=== PATIENT | male | born 1965 | race Caucasian/White ===

== ENCOUNTER 2017-01-22 22:25 | Inpatient (IN) | payer OTHER, MEDICARE ==
[~2017-01-22] VITALS: Ht 180.3 cm; Wt 97.4 kg
[~2017-01-22 22:25] MED LIST: AUGM875T PO; CYCL-36 PO; GABA600T PO; LEVEMIR SC; LISI5 PO; LORTA5 PO; NEOS15T TOPICAL; NOVOLOGP2 SC; PLAV75TA PO; PROS5TAB2 PO; PROT40TA PO; RIFA150 PO; TAMS0.4C67 PO
[2017-01-22 22:30] VITALS: BP 128/65; PULSE 98; RESP 16; TEMP 98.5; O2SAT 99
[2017-01-22] MEDS ORDERED: LEVEMIR SQ (22:42)
[2017-01-22] MEDS ORDERED: FINA5TAB2 PO (22:42)
[2017-01-22] MEDS ORDERED: CLOP75TA PO (22:42)
[2017-01-22] MEDS ORDERED: HYDR-3583 PO (22:42)
[2017-01-22] MEDS ORDERED: GABA300C5 PO (22:42)
[2017-01-22] MEDS ORDERED: PANT40TA3 PO (22:42)
[2017-01-22] MEDS ORDERED: LISI2.5T3 PO (22:42)
--- NOTE | 2017-01-22 22:53 | PD ---
HPI Chief Complaint: Skin Problem Time Seen by Provider: 22:48 Travel History International Travel<30 days: No Contact w/Intl Traveler<30days: No Traveled to known affect area: No History of Present Illness HPI 51-year-old male that presents to the ED for evaluation of lower leg edema with swelling and erythema. Per patient she's had this for the past couple of days. Per patient the symptoms started on Monday. Per patient she follows with his primary care doctor for evaluation of a diabetic ulcer to his left fifth digit. Per patient she's had wound care and x-rays has been compliant with his medications for his diabetes as well as for his wound care with good results. Per patient he doesn't really have any issues with her has not really pain on the feet as he has peripheral neuropathy secondary to diabetes. Per patient he go concerning on Monday because he started having some swelling of his lower legs. Per patient the swelling has becoming more severe and is going almost up to his groin. Per patient is becoming painful with up pain level of 6 out of 10. Per patient he feels like a burning sensation as well. He does have a history of blood clots and takes Plavix. He actually was admitted last year for a blood clot to his right arm. He denies any chest pain or shortness of breath. No cough or runny nose. No shortness of breath. Per patient he did complain of some lower back pain that started about 5 hours ago. Per patient the pain continued to worsen and that is why he called the ambulance so the burning here. Patient denies any other medical problems. Patient states compliance with medications given to him by his doctor. History of MRSA in the past. PFSH Past Medical History Arthritis: Yes Asthma: No Autoimmune Disease: No Blood Disorders: No Anxiety: No Depression: No Heart Rhythm Problems: No Cancer: Yes (Squamous cell/basal skin cancer) Cardiovascular Problems: No High Cholesterol: Yes Chemotherapy: No Chest Pain: No Congestive Heart Failure: No COPD: No Cerebrovascular Accident: No Diabetes: Yes Patient Takes Glucophage: Yes Diminished Hearing: No Endocrine: No Gastrointestinal Disorders: Yes GERD: Yes Glaucoma: No Genitourinary: Yes ([facility] Rx for Flomax) Hepatitis: No Hiatal Hernia: Yes Herniated Disk: Yes (CERVICAL AND LUMBAR) Hypertension: Yes Immune Disorder: No Kidney Stones: No Musculoskeletal: No Neurologic: Yes (neuropathy) Psychiatric: No Reproductive: No Respiratory: No Immunizations Current: Yes Migraines: No Radiation Therapy: No Renal Failure: No Seizures: No Sleep Apnea: No Thyroid Disease: No Ulcer: No Tetanus Vaccination: Unknown Influenza Vaccination: No Past Surgical History Abdominal Surgery: No AICD: Yes Arteriovenous Shunt: No Cardiac Surgery: No Ear Surgery: No Endocrine Surgery: No Eye Surgery: No Genitourinary Surgery: No Gynecologic Surgery: No Insulin Pump: No Joint Replacement: No Oral Surgery: Yes Pacemaker: No Thoracic Surgery: No Other Surgery: Yes (blood clot removal rue, lle wound debridement) Social History Alcohol Use: No Tobacco Use: Yes Substance Use: No Allergies-Medications (Allergen,Severity, Reaction): Coded Allergies: *MDRO Multi-Drug Resistant Organism (Verified Adverse Reaction, Unknown, ) MRSA (arm wound) - 01/2016 MRSA (blood, urine, wound) - 06/2013 Reported Meds & Prescriptions Reported Meds & Active Scripts Active Reported Levemir Inj (Insulin Detemir) 1,000 unit/ 10 ML Vial 60 Units SQ BID Do not mix with any other Insulin. Clopidogrel (Clopidogrel Bisulfate) 75 Mg Tab 75 Mg PO DAILY Lisinopril 2.5 Mg Tab 2.5 Mg PO DAILY Finasteride 5 Mg Tab 5 Mg PO DAILY Do not crush. Hydrocodone-Acetaminophen 10-325 mg Tab 1 Tab PO Q4H PRN Gabapentin 300 Mg Cap 300 Mg PO TID Pantoprazole (Pantoprazole Sodium) 40 Mg Tab 40 Mg PO DAILY Review of Systems General / Constitutional: No: Fever, Chills, Weight Gain, Weight Loss, Other Eyes: No: Diploplia, Blurred Vision, Photophobia, Drainage, Redness, Foreign Body Sensation, Pain, Tearing, Blind Spots, Visual changes, Blindness, Other HENT: No: Headaches, Vertigo, Lightheadedness, Sore Throat, Rhinitis, Rhinorrhea, Congestion, Nosebleed, Neck Stiffness, Neck Pain, Masses, Gingival Bleeding, Dental Difficulties, Ear Discharge, Earache, Other Cardiovascular: No: Chest Pain or Discomfort, Palpitations, Irregular Rhythm, Tachycardia, Diaphoresis, Syncope, Dyspnea on exertion, Varicosities, Edema, Cyanosis, Varicosities, Phlebitis, Claudication, Other Respiratory: No: Cough, Shortness of Breath, Wheezing, Sneezing, Orthopnea, Hemoptysis, Stridor, Night Sweats, Pleuritic Pain, Other Gastrointestinal: No: Nausea, Vomiting, Diarrhea, Abdominal Pain, Hematemesis, Hematochezia, Constipation, Changes in Bowel Habits, Indigestion, Dysphagia, Loss of Appetite, Other Genitourinary: No: Urgency, Frequency, Dysuria, Nocturia, Hematuria, Decreased Urinary Output, Oliguria, Hesitancy, Dribbling, Incontinence, Pelvic Pain, Flank Pain, Dyspareunia, Discharge, Dysmenorrhea, Menorrhagia, Metorrhagia, Vaginal Bleeding, Other Musculoskeletal: Positive: Edema, Pain, No: Myalgias, Arthralgias, Limited ROM , Weakness, Cramping, Atrophy, Other Skin: Positive Rash, No Itching, No Dryness, No Lumps, No Hives, No Change in Pigmentation, No Change in nails, No Alopecia, No Lesions, No Breast Lumps, No Breast Tenderness, No Breast Swelling, No Other Neurologic: No: Weakness, Dizziness, Syncope, Focal Abnormalities, Coordination Problem, Tremor, Ataxia, Headache, Change in Mentation, Slurred Speech, Paresthesia, Incontinence, Seizures, Sensory Disturbance, Other Psychiatric: No: Anxiety, Depression, Suicidal Ideations, Disorder of Thought, Mood Disorder, Substance Abuse, Homicidal Ideation, Other Endocrine: No: Heat Intolerance, Cold Intolerance, Polyuria, Polydipsia, Other Hematologic/Lymphatic: No: Easy Bruising, Lymph Node Enlargement, Other Physical Exam Narrative GENERAL: SKIN: Warm and dry. HEAD: Atraumatic. Normocephalic. EYES: Pupils equal and round. No scleral icterus. No injection or drainage. ENT: No nasal bleeding or discharge. Mucous membranes pink and moist. Tongue is midline. No uvula deviation. NECK: Trachea midline. No JVD. CARDIOVASCULAR: Regular rate and rhythm. No murmurs, S3, S4. RESPIRATORY: No accessory muscle use. Clear to auscultation. Breath sounds equal bilaterally. GASTROINTESTINAL: Abdomen soft, non-tender, nondistended. Hepatic and splenic margins not palpable. MUSCULOSKELETAL: Extremities without clubbing, cyanosis, or edema. No obvious deformities. Full range of motion of the lower extremities. Patient does have 1+ pitting edema of the lower shortness bilaterally. Erythema noted bilaterally. Very warm to touch. No obvious purulence or mass. Patient does have what appears to be a healing diabetic ulcer on the left fifth toe with no sign of purulence or mass. Toe itself appears to be intact. Able to move it fully. 2+ pulses bilaterally. NEUROLOGICAL: Awake and alert. No obvious cranial nerve deficits. Motor grossly within normal limits. Five out of 5 muscle strength in the arms and legs. Normal speech. PSYCHIATRIC: Appropriate mood and affect; insight and judgment normal. Data Data Last Documented VS Vital Signs Date Time Temp Pulse Resp B/P Pulse Ox O2 Delivery O2 Flow Rate FiO2 01/22/17 22:30 98.5 98 16 128/65 99 Orders Blood Culture (01/22/17 22:38) Iv Access Insert/Monitor (01/22/17 22:38) Wound Care (01/22/17 22:38) Foot, Complete ([id number]) (01/22/17 22:38) Us Leg Venous Doppler Bilat (01/22/17 22:38) Complete Blood Count With Diff (01/22/17 22:38) Magnesium (Mg) (01/22/17 22:38) Chest, Single Ap (01/22/17 22:38) Lactic Acid (01/22/17 22:38) Comprehensive Metabolic Panel (01/22/17 22:38) B-Type Natriuretic Peptide (01/22/17 22:46) Nicotine 14 Mg Patch.24 Hr (Habitrol 14 (01/22/17 23:00) MDM Medical Decision Making Medical Screen Exam Complete: Yes Emergency Medical Condition: Yes Medical Record Reviewed: Yes Differential Diagnosis Cellulitis versus pitting edema versus DVT versus heart failure versus sepsis versus normal exam Narrative Course 51-year-old male that presents to the ED for evaluation of lower leg edema and redness. Patient was properly examined and was found to have signs and symptoms concerning for cellulitis versus blood clots as patient has a history of IN the past. My recommendation at this time is for labs and imaging. Patient requested nicotine patch secondary to smoking abuse. This was given to the patient. Case will be signed out to my attending Dr. Saravia pending treatment and dispo. Wilian Leonardo Jan 22, 2017 22:53
[2017-01-22] MEDS ORDERED: NICOTINE 14 MG/24 HR PATCH TD ONE (23:00)
[2017-01-22 23:05] LABS: AUTOMATED NEUTROPHIL # 11.6 TH/MM3 (1.8-7.7); BASOPHIL # 0.2 TH/MM3 (0-0.2); BASOPHIL % 1.4 % (0.0-2.0); EOSINOPHIL # 0.3 TH/MM3 (0-0.4); EOSINOPHIL % 1.9 % (0.0-4.0); HEMATOCRIT 33.8 % (39.0-51.0); HEMO FLAGS DIFF FINAL; LYMPH % 22.3 % (9.0-44.0); LYMPHOCYTE # 3.8 TH/MM3 (1.0-4.8); MEAN CELL VOLUME 83.2 FL (80.0-100.0); MEAN CORPUSCULAR HEMOGLOBIN 27.5 PG (27.0-34.0); MONO % 6.5 % (0.0-8.0); NEUT % 67.9 % (16.0-70.0); PLATELET COUNT 523 TH/MM3 (150-450); RED BLOOD COUNT 4.07 MIL/MM3 (4.50-5.90); RED CELL DISTRIBUTION WIDTH 15.7 % (11.6-17.2); WHITE BLOOD COUNT 17.1 TH/MM3 (4.0-11.0)
[2017-01-22 23:31] LABS: BLOOD UREA NITROGEN 24 MG/DL (7-18); GLOMERULAR FILTRATION RATE 80 ML/MIN (>89)
[2017-01-22 23:32] LABS: ALKALINE PHOSPHATASE 215 U/L (45-117); ALT (GPT) 24 U/L (12-78); ANION GAP 10 MEQ/L (5-15); AST (GOT) 16 U/L (15-37); BICARBONATE 26.2 MEQ/L (21.0-32.0); CHLORIDE 97 MEQ/L (98-107); MAGNESIUM 2.6 MG/DL (1.5-2.5); POTASSIUM 4.5 MEQ/L (3.5-5.1); SODIUM (NA) 133 MEQ/L (136-145); TOTAL BILIRUBIN ADULT 0.1 MG/DL (0.2-1.0)
[2017-01-23] VITALS (9 sets, daily range): BP systolic 115–138; BP diastolic 54–86; PULSE 81–104; RESP 18–20; TEMP 97.4–99.7; O2SAT 92–98
--- NOTE | 2017-01-23 00:01 | RADRPT ---
EXAM DATE/TIME: 01/22/2017 23:01 [facility] COMPARISON: No previous studies available for comparison. INDICATIONS : Bilateral leg swelling. MEDICAL HISTORY : Hypercholesterolemia. Gastroesophageal reflux disease. Hypertension. Legally blind. Neuropathy. Hiata l hernia. Arthritis. Herniated disks. Diabetes. Skin cancer. MRSA SURGICAL HISTORY : Internal defibrillator. Wound debridement. Blood clot removal right arm. ENCOUNTER: Initial ACUITY: 4 - 6 days PAIN SCORE: 6/10 LOCATION: Bilateral legs. TECHNIQUE: Venous ultrasound of the left and right leg was performed from the inguinal ligament to the proximal calf. Real-time, color Doppler and spectral tracing, compression and augmentation techniques were us ed. FINDINGS: RIGHT LEG: There is normal compressibility of the deep venous system from the inguinal region to the proximal ca lf. No echogenic clot is seen in the lumen of the common femoral, femoral, popliteal, and posterior tibial veins. There is a normal response of the venous system to proximal and distal augmentation an d respiration. LEFT LEG: There is normal compressibility of the deep venous system from the inguinal region to the proximal ca lf. No echogenic clot is seen in the lumen of the common femoral, femoral, popliteal, and posterior tibial veins. There is a normal response of the venous system to proximal and distal augmentation an d respiration. CONCLUSION: No evidence of lower extremity DVT on the right or left. Asael Parks MD on January 22, 2017 at 23:58 Board Certified Radiologist. This report was verified electronically.
--- NOTE | 2017-01-23 00:52 | RADRPT ---
EXAM DATE/TIME: 01/23/2017 00:08 [facility] COMPARISON: CHEST SINGLE AP, January 28, 2016, 14:39. INDICATIONS : Shortness of breath. MEDICAL HISTORY : Hypertension. Diabetes mellitus type II. Hypercholesterolemia. SURGICAL HISTORY : Pacemaker. ENCOUNTER: Initial ACUITY: 1 day PAIN SCORE: 0/10 LOCATION: Bilateral chest FINDINGS: Single AP view of the chest. The lungs are clear. Cardiomediastinal silhouette within normal limits. No evidence of pleural effusion or pneumothorax. CONCLUSION: No acute cardiopulmonary disease identified. Asael Parks MD on January 23, 2017 at 0:50 Board Certified Radiologist. This report was verified electronically.
--- NOTE | 2017-01-23 01:12 | RADRPT ---
EXAM DATE/TIME: 01/23/2017 00:12 [facility] COMPARISON: FOOT LEFT COMPLETE ([id number]), May 12, 2014, 16:31. INDICATIONS : Left foot pain and swelling. MEDICAL HISTORY : Hypertension. Hypercholesterolemia. Diabetes mellitus type II. SURGICAL HISTORY : Pacemaker. ENCOUNTER: Initial ACUITY: 1 day PAIN SCORE: 6/10 LOCATION: Left foot FINDINGS: 3 views of the left foot. Old bone defect of the fifth toe proximal phalanx distal pole. Bone alignme nt within normal limits. No evidence of acute fracture. No evidence of new bone erosion. CONCLUSION: Chronic bone defect in the fifth toe proximal phalanx. No acute findings identified. Asael Parks MD on January 23, 2017 at 1:08 Board Certified Radiologist. This report was verified electronically.
--- NOTE | 2017-01-23 01:39 | PD ---
Data Data Last Documented VS Vital Signs Date Time Temp Pulse Resp B/P Pulse Ox O2 Delivery O2 Flow Rate FiO2 01/22/17 22:30 98.5 98 16 128/65 99 Orders Blood Culture (01/22/17 22:38) Iv Access Insert/Monitor (01/22/17 22:38) Wound Care (01/22/17 22:38) Foot, Complete ([id number]) (01/22/17 22:38) Us Leg Venous Doppler Bilat (01/22/17 22:38) Complete Blood Count With Diff (01/22/17 22:38) Magnesium (Mg) (01/22/17 22:38) Chest, Single Ap (01/22/17 22:38) Lactic Acid (01/22/17 22:38) Comprehensive Metabolic Panel (01/22/17 22:38) B-Type Natriuretic Peptide (01/22/17 22:46) Nicotine 14 Mg Patch.24 Hr (Habitrol 14 (01/22/17 23:00) Vancomycin Inj (Vancomycin Inj) (01/23/17 01:45) Admit Order (Ed Use Only) (01/23/17 ) Labs Laboratory Tests Test 01/22/17 01/22/17 01/22/17 22:35 22:45 22:50 Lactic Acid Level 1.0 mmol/L Sodium Level 133 MEQ/L Potassium Level 4.5 MEQ/L Chloride Level 97 MEQ/L Carbon Dioxide Level 26.2 MEQ/L Anion Gap 10 MEQ/L Blood Urea Nitrogen 24 MG/DL Creatinine 0.98 MG/DL Estimat Glomerular Filtration 80 ML/MIN Rate Random Glucose 86 MG/DL Calcium Level 8.7 MG/DL Magnesium Level 2.6 MG/DL Total Bilirubin 0.1 MG/DL Aspartate Amino Transf 16 U/L (AST/SGOT) Alanine Aminotransferase 24 U/L (ALT/SGPT) Alkaline Phosphatase 215 U/L Total Protein 6.9 GM/DL Albumin 2.5 GM/DL White Blood Count 17.1 TH/MM3 Red Blood Count 4.07 MIL/MM3 Hemoglobin 11.2 GM/DL Hematocrit 33.8 % Mean Corpuscular Volume 83.2 FL Mean Corpuscular Hemoglobin 27.5 PG Mean Corpuscular Hemoglobin 33.0 % Concent Red Cell Distribution Width 15.7 % Platelet Count 523 TH/MM3 Mean Platelet Volume 7.7 FL Neutrophils (%) (Auto) 67.9 % Lymphocytes (%) (Auto) 22.3 % Monocytes (%) (Auto) 6.5 % Eosinophils (%) (Auto) 1.9 % Basophils (%) (Auto) 1.4 % Neutrophils # (Auto) 11.6 TH/MM3 Lymphocytes # (Auto) 3.8 TH/MM3 Monocytes # (Auto) 1.1 TH/MM3 Eosinophils # (Auto) 0.3 TH/MM3 Basophils # (Auto) 0.2 TH/MM3 CBC Comment DIFF FINAL Differential Comment B-Type Natriuretic Peptide 78 PG/ML MDM Supervised Visit with JOSTIN: Yes Narrative Course The history, exam, and medical decision-making in the associated mid-level provider note were completed with my assistance. I reviewed and agree with the findings presented. I attest that I had a [id number] encounter with the patient on the same day, and personally performed and documented my assessment and findings in the medical record. *My assessment and Findings: 51-year-old man with diabetes piloerection be cellulitis, elevated white count. High risk for outpatient failure. History of MRSA. Chronic wound in the left fifth toe. Given IV antibiotics. We'll admit for treatment given high risk for outpatient failure. Eliezer Saravia MD Jan 23, 2017 01:39
[2017-01-23] MEDS ORDERED: VANCOMYCIN INJ 1,250 MG in SODIUM CHLOR 0.9% 250 ML INJ 250 ML IV ONE (01:45)
[2017-01-23] MEDS ORDERED: NALOXONE HCL 0.4 MG/ML AMP IV PRN (02:45)
[2017-01-23] MEDS ORDERED: SODIUM CHLORIDE 0.9% FLUSH 5 ML FLUSH FLUSH PRN (02:45)
[2017-01-23] MEDS ORDERED: MAGNESIUM HYDROXIDE SUSP 30 ML CUP PO PRN (02:45)
[2017-01-23] MEDS ORDERED: ONDANSETRON HCL 4 MG/2 ML VIAL IVP PRN (02:45)
[2017-01-23] MEDS ORDERED: Vancomycin Consult Pharmacy 1 EA OTHER SCH (02:45)
[2017-01-23] MEDS ORDERED: ACETAMINOPHEN 325 MG TAB PO PRN (02:45)
[2017-01-23] MEDS ORDERED: DEXTROSE 50% IN WATER 50 ML VIAL(D50) IV PUSH PRN (03:00)
[2017-01-23] MEDS ORDERED: GLUCAGON 1 MG/ML VIAL OTHER PRN (03:00)
[2017-01-23 03:57] LABS: BASOPHIL # 0.3 TH/MM3 (0-0.2); BASOPHIL % 2.2 % (0.0-2.0); EOSINOPHIL # 0.4 TH/MM3 (0-0.4); EOSINOPHIL % 2.5 % (0.0-4.0); HEMATOCRIT 30.9 % (39.0-51.0); HEMO FLAGS DIFF FINAL; LYMPH % 25.1 % (9.0-44.0); LYMPHOCYTE # 3.9 TH/MM3 (1.0-4.8); MEAN CELL VOLUME 83.7 FL (80.0-100.0); MEAN CORPUSCULAR HEMOGLOBIN 27.2 PG (27.0-34.0); MEAN CORPUSCULAR HGB CONC 32.6 % (32.0-36.0); MONO % 6.3 % (0.0-8.0); NEUT % 63.9 % (16.0-70.0); PLATELET COUNT 508 TH/MM3 (150-450); RED BLOOD COUNT 3.69 MIL/MM3 (4.50-5.90); RED CELL DISTRIBUTION WIDTH 15.6 % (11.6-17.2); WHITE BLOOD COUNT 15.6 TH/MM3 (4.0-11.0)
[2017-01-23] MEDS: ACETAMINOPHEN/HYDROcodone 325 MG/5 MG TAB PO PRN ×2 (04:10→10:36)
[2017-01-23 04:24] LABS: BICARBONATE 28.4 MEQ/L (21.0-32.0); POTASSIUM 4.3 MEQ/L (3.5-5.1)
[2017-01-23] MEDS ORDERED: INSULIN ASPART SUPPLEMENTAL SCALE SQ SCH (07:00)
--- NOTE | 2017-01-23 08:24 | HHI.HP ---
[facility] Rey Hernandez MD Admission Diagnosis BLE cellulitis Diagnoses: Chief Complaint: lower extremity edema/pain Travel History International Travel<30 Days: No Contact w/Intl Traveler <30 Da: No Traveled to Known Affected Are: No Sepsis Criteria SIRS Criteria (2 or more): Heart rate over 90, WBC > 70166, < 4000 or > 10% bands Sepsis Criteria (SIRS+source): Infect source susp/known Criteria Outcome: Meets sepsis criteria History of Present Illness 51-year-old male with history of DM, neuropathy, HTN, HLD, GERD, PVD, presents with a 2-3 day history of worsening bilateral leg swelling and pain. The patient states he has been dealing with a left 5th toe ulceration, seeing wound care and configuration release manager Dr. Ponce, s/p I&D, completed antibiotic 7 days treatment with Bactrim 1 week ago. However even after antibiotic treatment he started to notice worsening redness/warmth/edema extending proximally up the left leg. He also started to notice warmth and redness of the right lower extremity to a lesser extent. He denies any recent fevers but does have some occasional chills. The patient also does report shortness of breath which he believes is related to the pain, however also reports orthopnea and dyspnea on exertion. Denies any cough or chest pains. He denies any other medical complaints at this time. Review of Systems Constitutional: COMPLAINS OF: Chills, DENIES: Diaphoretic episodes, Fever, Dizziness Endocrine: DENIES: Polydipsia, Polyuria, Polyphagia Eyes: DENIES: Blurred vision, Double Vision Ears, nose, mouth, throat: DENIES: Throat pain, Odynophagia Respiratory: COMPLAINS OF: Shortness of breath, DENIES: Cough, Wheezing, Sputum production Cardiovascular: COMPLAINS OF: Dyspnea on Exertion, Lower Extremity Edema, Orthopnea, DENIES: Chest pain, Palpitations, Syncope Gastrointestinal: DENIES: Abdominal pain, Constipation, Diarrhea, Nausea, Vomiting Genitourinary: DENIES: Urinary frequency, Urgency, Dysuria Musculoskeletal: COMPLAINS OF: Back pain, DENIES: Joint pain, Neck pain Integumentary: DENIES: Nail changes, Pruritus Hematologic/lymphatic: DENIES: Bruising, Lymphadenopathy Immunologic/allergic: DENIES: Eczema, Urticaria Neurologic: DENIES: Abnormal gait, Headache, Localized weakness Psychiatric: DENIES: Anxiety, Depression Past Family Social History Past Medical History Legally blind Diabetes mellitus Neuropathy PVD Hypertension Hyperlipidemia GERD BPH Squamous cell skin cancer Hiatal Hernia Herniated discs Chronic back pain Sciatica Past Surgical History Squamous cell cancer resection from arms Right brachial endarterectomy and patch angioplasty with closure by Dr. Valdez Reported Medications Levemir Inj (Insulin Detemir) 1,000 unit/ 10 ML Vial 60 Units SQ BID Do not mix with any other Insulin. Clopidogrel (Clopidogrel Bisulfate) 75 Mg Tab 75 Mg PO DAILY Lisinopril 2.5 Mg Tab 2.5 Mg PO DAILY Finasteride 5 Mg Tab 5 Mg PO DAILY Do not crush. Hydrocodone-Acetaminophen 10-325 mg Tab 1 Tab PO Q4H PRN Gabapentin 300 Mg Cap 300 Mg PO TID Pantoprazole (Pantoprazole Sodium) 40 Mg Tab 40 Mg PO DAILY Allergies: Coded Allergies: *MDRO Multi-Drug Resistant Organism (Verified Adverse Reaction, Unknown, ) MRSA (arm wound) - 01/2016 MRSA (blood, urine, wound) - 06/2013 Active Ordered Medications Current Medications Medications (Trade) Dose Ordered Sig/Sumanth Route Start Time Stop Time Status Last Admin (NS Flush) 2 ml UNSCH PRN FLUSH 01/23/17 02:45 (NS Flush) 2 ml BID FLUSH 01/23/17 09:00 (Tylenol) 650 mg Q4H PRN PO 01/23/17 02:45 (Zofran Inj) 4 mg Q6H PRN IVP 01/23/17 02:45 (Milk Of Magnesia Liq) 30 ml Q12H PRN PO 01/23/17 02:45 (Lovenox Inj) 40 mg Q24H SQ 01/23/17 09:00 Naloxone HCl 0.4 mg 0.4 mg UNSCH PRN IV 01/23/17 02:45 (Vancomycin Consult Pharmacy) 0 ml @ 0 mls/hr UNSCH OTHER 01/23/17 02:45 (D50w (Vial) Inj) 25 ml UNSCH PRN IV PUSH 01/23/17 03:00 (Glucagon Inj) 1 mg UNSCH PRN OTHER 01/23/17 03:00 (Plavix) 75 mg DAILY PO 01/23/17 09:00 (Proscar) 5 mg DAILY PO 01/23/17 09:00 (Neurontin) 300 mg TID PO 01/23/17 09:00 (Levemir Inj) 60 units BID SQ 01/23/17 09:00 (Prinivil) 2.5 mg DAILY PO 01/23/17 09:00 (Protonix) 40 mg DAILY PO 01/23/17 09:00 ([place] 5-325 Mg) 1 tab Q6H PRN PO 01/23/17 03:00 01/23/17 04:10 ([place] 10-325 Mg) 1 tab Q6H PRN PO 01/23/17 03:00 Family History Patient unaware of biological family history, he is adopted Social History Smokes tobacco, 1.5 PPD Denies alcohol use Denies illicit drug use Physical Exam Vital Signs Vital Signs Date Time Temp Pulse Resp B/P Pulse Ox O2 Delivery O2 Flow Rate FiO2 01/23/17 04:11 98.8 97 18 123/57 98 01/23/17 01:46 96 18 136/67 96 Room Air 01/22/17 22:30 98.5 98 16 128/65 99 Physical Exam GENERAL: Well-nourished, well-developed middle aged male patient in [facility]. SKIN: Warm and dry. Excoriations and indurations at the right forearm. See lower extremities below. HEAD: Normocephalic. Atraumatic. EYES: Pupils equal and round. No scleral icterus. No injection or drainage. ENT: No nasal bleeding or discharge. Mucous membranes pink and moist. NECK: Supple. Trachea midline. CARDIOVASCULAR: Regular rate and rhythm. S1, S2 noted. No murmur appreciated. RESPIRATORY: No accessory muscle use. Clear to auscultation. Breath sounds equal bilaterally. GASTROINTESTINAL: Abdomen soft, non-tender, nondistended. Normoactive bowel sounds x4. MUSCULOSKELETAL: No obvious deformities. LLE with superficial ulceration at left 5th medial toe, however erythema, 1+ edema, warmth extending from the foot up toe the distal knee. RLE with mild erythema, 1+ edema. BLE mildly tender to palpation. NEUROLOGICAL: Awake and alert. No obvious cranial nerve deficits. Motor grossly within normal limits. 5/5 muscle strength in bilateral upper and lower extremities. Normal speech. PSYCHIATRIC: Appropriate mood and affect; insight and judgment normal. Laboratory Laboratory Tests Test 01/22/17 01/22/17 01/22/17 01/23/17 22:35 22:45 22:50 03:40 Lactic Acid Level 1.0 Sodium Level 133 139 Potassium Level 4.5 4.3 Chloride Level 97 103 Carbon Dioxide Level 26.2 28.4 Anion Gap 10 8 Blood Urea Nitrogen 24 20 Creatinine 0.98 0.88 Estimat Glomerular Filtration 80 91 Rate Random Glucose 86 83 Calcium Level 8.7 8.4 Magnesium Level 2.6 Total Bilirubin 0.1 Aspartate Amino Transf 16 (AST/SGOT) Alanine Aminotransferase 24 (ALT/SGPT) Alkaline Phosphatase 215 Total Protein 6.9 Albumin 2.5 White Blood Count 17.1 15.6 Red Blood Count 4.07 3.69 Hemoglobin 11.2 10.1 Hematocrit 33.8 30.9 Mean Corpuscular Volume 83.2 83.7 Mean Corpuscular Hemoglobin 27.5 27.2 Mean Corpuscular Hemoglobin 33.0 32.6 Concent Red Cell Distribution Width 15.7 15.6 Platelet Count 523 508 Mean Platelet Volume 7.7 7.4 Neutrophils (%) (Auto) 67.9 63.9 Lymphocytes (%) (Auto) 22.3 25.1 Monocytes (%) (Auto) 6.5 6.3 Eosinophils (%) (Auto) 1.9 2.5 Basophils (%) (Auto) 1.4 2.2 Neutrophils # (Auto) 11.6 10.0 Lymphocytes # (Auto) 3.8 3.9 Monocytes # (Auto) 1.1 1.0 Eosinophils # (Auto) 0.3 0.4 Basophils # (Auto) 0.2 0.3 CBC Comment DIFF FINAL DIFF FINAL Differential Comment B-Type Natriuretic Peptide 78 Date/Time Procedure Status Source Growth 01/22/17 22:50 Aerobic Blood Culture Received Blood Peripheral Pending 01/22/17 22:50 Anaerobic Blood Culture Received Blood Peripheral Pending Result Diagram: 01/23/17 0340 01/23/17 0340 Imaging 01/22/17: Chest x-ray - no acute cardiopulmonary disease identified 01/22/17: Left foot x-ray - chronic bone defect in the fifth toe proximal phalanx ; no acute findings identified 01/22/17: Doppler ultrasound - negative for DVT of bilateral lower extremities Assessment and Plan Assessment and Plan 51-year-old male with history of DM, neuropathy, HTN, HLD, GERD, PVD, presents with a 2-3 day history of worsening bilateral leg swelling and pain. Sepsis: leukocytosis WBC 17K, tachycardic HR 98. Source- secondary to lower extremity diabetic foot ulcer and cellulitis, see below. Lactic acid 1.0. Blood cultures collected. Continue IVF. Monitor CBC and vitals. LLE Diabetic Foot Ulcer and BLE Cellulitis, Failed Outpatient: with sepsis as above. L > R. Completed antibiotic treatment with Bactrim 1 week ago. Continue IV Vancomycin. Consult podiatry. Apply nystatin cream to foot ulcer. Diabetes Mellitus with Neuropathy: chronic, restart patient's Levemir 60u bid and Gabapentin. Monitor Accu-Cheks and cover with low dose SSI. Check HgbA1c. Dyspnea/LE Edema: unclear etiology. Doubt CHF with BNP 78, CXR images reviewed by me, unremarkable. Doppler U/S negative for DVT LE. With hx of DVT RUE , check VQ scan. HTN/HLD/PVD: chronic, continue patient's lisinopril, plavix. BPH: chronic, continue patient's Proscar GERD: chronic, continue patient's Protonix. All other medical conditions stable, continue home medications as appropriate. DVT Prophylaxis: Lovenox Written by Eboni Jones, acting as scribe for Dr. Healy on 01/23/17 at 08: 36. All or portions of this note were transcribed by scribderek []. I, Dr. Yoseph Healy personally performed the history, physical exam, and medical decision making; and confirmed the accuracy of the information in the transcribed note. Authenticated by Dr. Yoseph Healy on 01/23/17 at 16:29. Code Status Full Code Discussed Condition With Patient, RN Physician Certification 2 Midnight Certification Type: Admission for Inpatient Services Order for Inpatient Services The services are ordered in accordance with Medicare regulations or non- Medicare payer requirements, as applicable. In the case of services not specified as inpatient-only, they are appropriately provided as inpatient services in accordance with the 2-midnight benchmark. Estimated LOS (days): 3 days is the estimated time the patient will need to remain in the hospital, assuming treatment plan goals are met and no additional complications. Post-Hospital Plan: Not yet determined Eboni Jones PA-C Jan 23, 2017 08:24 Yoseph Healy MD Jan 23, 2017 16:29
[2017-01-23] MEDS ORDERED: ENALAPRILAT 1.25 MG/ML VIAL IV PRN (08:45)
[2017-01-23] MEDS ORDERED: cloNIDine HCL 0.1 MG TAB PO PRN (08:45)
[2017-01-23] MEDS: INSULIN DETEMIR 100 UNITS/ML VIAL SQ SCH ×2 (09:37→21:18)
[2017-01-23] MEDS: ENOXAPARIN SODIUM 40 MG/0.4 ML SYRINGE SQ SCH (09:37)
[2017-01-23] MEDS: FINASTERIDE 5 MG TAB PO SCH (09:39)
[2017-01-23] MEDS: LISINOPRIL 5 MG TAB PO SCH (09:39)
[2017-01-23] MEDS: CLOPIDOGREL 75 MG TAB PO SCH (09:39)
[2017-01-23] MEDS: GABAPENTIN 300 MG CAP PO SCH ×3 (09:39→17:41)
[2017-01-23] MEDS: PANTOPRAZOLE SOD 40 MG DELAYED RELEASE TAB PO SCH (09:39)
[2017-01-23] MEDS: SODIUM CHLORIDE 0.9% FLUSH 5 ML FLUSH FLUSH SCH ×2 (09:40→21:17)
[2017-01-23] MEDS: INSULIN ASPART SUPPLEMENTAL SCALE SQ SCH ×3 (11:00→21:20)
--- NOTE | 2017-01-23 11:36 | RADRPT ---
EXAM DATE/TIME: 01/23/2017 10:47 [place] COMPARISON: No previous studies available for comparison. INDICATIONS : Dyspnea with bilateral leg swelling. DOSE: 8.5 mCi Tc99m MAA IV 0.93 mCi Tc99m DTPA aerosol MEDICAL HISTORY : Hypertension. Diabetes mellitus type 2. Gastroesophageal reflux disease. Skin cancer. SURGICAL HISTORY : Skin cancer removal. ENCOUNTER: Initial ACUITY: 1 day PAIN SCALE: 0/10 LOCATION: Chest. TECHNIQUE: Following five minutes of tidal breathing of DTPA aerosol, planar images of the lungs were performed in eight projections. The patient was then injected with MAA, and eight-view perfusion scan was perf ormed. FINDINGS: There is a homogeneous pattern of aerosol delivery to the periphery of both lungs. Minimal central a irway tracer deposition is noted. No focal ventilatory defects are seen. The perfusion lung scan demonstrates a homogenous pattern of uptake in both lungs. No segmental or s ubsegmental defects are seen. CONCLUSION: Probability for pulmonary embolism.. Piyush Barrera MD FACR on January 23, 2017 at 11:34 Board Certified Radiologist. This report was verified electronically.
[2017-01-23 12:34] LABS: HEMOGLOBIN Ao 71.6 %; HEMOGLOBIN F 2.7 %; HEMOGLOBIN LA1C 1.8 %; HEMOGLOBIN P3 4.8 %
[2017-01-23] MEDS: NYSTATIN 100,000 UNIT/GM CREAM 15 GM TOPICAL SCH ×2 (12:52→21:18)
[2017-01-23] MEDS: VANCOMYCIN INJ 1,250 MG in SODIUM CHLOR 0.9% 250 ML INJ 250 ML IV SCH (14:43)
[2017-01-23] MEDS: ACETAMINOPHEN/HYDROcodone 325 MG/10 MG TAB PO PRN (17:41)
--- NOTE | 2017-01-23 20:58 | MB ---
cc: OSEI MARTEL DPM DATE OF CONSULTATION 01/23/17 REASON FOR CONSULTATION Left fifth digit ulcer, bilateral lower extremity cellulitis. HISTORY OF PRESENT ILLNESS This is a 51-year-old male with diabetes, peripheral neuropathy, significant past medical history, however, within the last [id number] days had worsening redness and pain of his bilateral legs. He has been seeing a medical insurance coding specialist, unclear if it is his mirror specialist through a wound care company that comes to his home regarding the left fifth digit ulcer. He states it has been improving. However, his legs was a definite worsening condition that he wished to be evaluated. Currently, I am seeing the patient bedside. He is a rather poor historian. He says he has had cellulitis in the past and he also has a history of needing antibiotics for his left fifth digit. Upon questioning regarding keeping the digit he at all costs he does not want any talk of fifth digit amputation. PAST MEDICAL HISTORY His past medical history is positive for legally blind, diabetes, peripheral neuropathy, PVD, hypertension, hyperlipidemia, gastroesophageal reflux disease, BPH, squamous cell skin cancer, hiatal hernia, herniated disks, chronic pain, sciatica. PAST SURGICAL HISTORY Squamous cell resection of his arms, right brachial endarterectomy with patch angioplasty with closure by Dr. Reddy. MEDICATIONS Reported outpatient medications reviewed and verified. Inpatient medications also reviewed. The patient is receiving vancomycin. Please see complete med list in chart. ALLERGIES None listed. However, history of multidrug resistant organism. PHYSICAL EXAMINATION VITAL SIGNS: Temperature is 99.3, pulse rate 100, respiratory rate 18, blood pressure 138/86. He is satting 95% on room air. GENERAL: This is an alert and oriented male seen bedside, exhibiting nonlabored respirations. EXTREMITIES: Bilateral lower extremities are examined. There is noted to be significant edema of the bilateral legs with redness, no open lesions on the bilateral extremities. The left fifth digit is examined. There is a partial thickness ulcer of the medial aspect of the fifth digit 6mm 6mm 2mm. No bone is exposed. It appears to have a red, beefy granular base. There is minimal drainage. There is superficial scab on the outer side of the fifth digit. The bone appears to have a mild instability nature as in possible history of a previous hammertoe surgery. The feet are warm. Pulses are palpable. Sensation decreased to light touch. LABORATORY FINDINGS White blood cell 71 down to 15.6, hemoglobin/hematocrit is 10 and 30, platelet count is 508. Chem-7 sodium 139, potassium 4.3, chloride 103, CO2 28.4, BUN is 20, hemoglobin A1c is 14.3. IMAGING FINDINGS Pertaining to the foot there appears to be an old deformity at the proximal phalanx likely correlating more with an old surgery than acute bony infection. Lower extremity ultrasound appears to be negative for any obvious DVT. ASSESSMENT/PLAN Left fifth digit ulceration wound culture taken bedside. My recommendation is to elevate the extremities. Continue gram-positive coverage. Upon questioning the patient if he wished for digit salvage he says absolutely. So wound care will be topical antibiotic ointment daily. I will follow the patient within the next 1-2 days. I do not see any need for surgical intervention at this time. TONI Joaquin/GINI /4:58 PM /7:45 PM GREGORY
[2017-01-24] VITALS (7 sets, daily range): BP systolic 121–175; BP diastolic 56–79; PULSE 68–95; RESP 20–22; TEMP 97–98.4; O2SAT 94–98
[2017-01-24] MEDS: VANCOMYCIN INJ 1,250 MG in SODIUM CHLOR 0.9% 250 ML INJ 250 ML IV SCH ×2 (03:28→16:45)
[2017-01-24] MEDS: ACETAMINOPHEN/HYDROcodone 325 MG/10 MG TAB PO PRN ×2 (03:36→09:03)
[2017-01-24] MEDS: INSULIN ASPART SUPPLEMENTAL SCALE SQ SCH ×4 (06:42→21:00)
[2017-01-24] MEDS: LISINOPRIL 5 MG TAB PO SCH (08:47)
[2017-01-24] MEDS: FINASTERIDE 5 MG TAB PO SCH (08:47)
[2017-01-24] MEDS: PANTOPRAZOLE SOD 40 MG DELAYED RELEASE TAB PO SCH (08:47)
[2017-01-24] MEDS: ENOXAPARIN SODIUM 40 MG/0.4 ML SYRINGE SQ SCH (08:48)
[2017-01-24] MEDS: SODIUM CHLORIDE 0.9% FLUSH 5 ML FLUSH FLUSH SCH ×2 (08:48→23:51)
[2017-01-24] MEDS: GABAPENTIN 300 MG CAP PO SCH ×3 (08:48→17:46)
[2017-01-24] MEDS: CLOPIDOGREL 75 MG TAB PO SCH (08:48)
[2017-01-24] MEDS: NYSTATIN 100,000 UNIT/GM CREAM 15 GM TOPICAL SCH ×2 (09:03→23:52)
[2017-01-24] MEDS: INSULIN DETEMIR 100 UNITS/ML VIAL SQ SCH ×2 (09:07→21:00)
--- NOTE | 2017-01-24 10:10 | HHI.PR ---
Subjective Remarks Follow-up for lower extremity cellulitis. The patient complains of chronic back pain, due for medication. BP is up, but the patient is uncomfortable from pain. He also reports he is on a higher dose of gabapentin at home. He was sent in by his home residential gas heat technician concerned about foot ulcer. Patient does have some shortness of breath, continues to smoke, has never been diagnosed with COPD. Objective Vitals Vital Signs Date Time Temp Pulse Resp B/P Pulse Ox O2 Delivery O2 Flow Rate FiO2 01/24/17 08:44 Room Air 01/24/17 08:44 97.0 89 20 98 01/24/17 04:06 97.4 79 20 128/61 95 01/24/17 00:13 98.1 87 20 121/56 95 01/23/17 20:02 96 01/23/17 19:31 97.4 93 20 115/54 95 01/23/17 18:42 18 01/23/17 16:50 99.3 104 18 138/86 95 01/23/17 15:45 99.7 101 18 120/58 92 01/23/17 12:36 18 01/23/17 12:35 97.6 93 20 117/55 94 01/23/17 10:31 81 I/O 01/23/17 01/23/17 01/23/17 01/24/17 01/24/17 01/24/17 07:00 15:00 23:00 07:00 15:00 23:00 Intake Total 480 ml 300 ml Output Total 400 ml Balance 480 ml -100 ml Intake Oral 480 ml IV Total 300 ml Output Urine Total 400 ml # Voids 1 # Bowel Movements 1 Result Diagram: 01/23/17 0340 01/24/17 0425 Imaging Last Impressions Lower Extremity Ultrasound 01/22/172237 Signed Impressions: Service Date/Time: Sunday, January 22, 2017 23:01 - CONCLUSION: No evidence of lower extremity DVT on the right or left. Asael Parks MD Foot X-Ray 01/22/172237 Signed Impressions: Service Date/Time: Monday, January 23, 2017 00:12 - CONCLUSION: Chronic bone defect in the fifth toe proximal phalanx. No acute findings identified. Asael Parks MD Chest X-Ray 01/22/172237 Signed Impressions: Service Date/Time: Monday, January 23, 2017 00:08 - CONCLUSION: No acute cardiopulmonary disease identified. Asael Parks MD Objective Remarks GENERAL: Well-developed well-nourished. In no acute distress. SKIN: Warm and dry. Bilateral lower extremity cellulitis L>R, improving. Ulcers lateral aspect left foot. HEENT: Normocephalic. Pupils equal and round. Mucous membranes pink and moist. CARDIOVASCULAR: Regular rate and rhythm. No murmur appreciated. RESPIRATORY: No accessory muscle use. Clear to auscultation. Breath sounds equal bilaterally. GASTROINTESTINAL: Abdomen soft, non-tender, nondistended. Bowel sounds x4. MUSCULOSKELETAL: Erythema around both ankles, worse on the left. 1+ lower extremity edema bilaterally.. No clubbing or cyanosis. NEUROLOGICAL: Awake and alert. No focal neurological deficits. Moves upper and lower extremities spontaneously. Normal speech. PSYCHIATRIC: Appropriate mood and affect; insight and judgment normal. A/P Assessment and Plan 51-year-old male with history of DM, neuropathy, HTN, HLD, GERD, PVD, presents with a 2-3 day history of worsening bilateral leg swelling and pain. Sepsis: leukocytosis WBC 17K, tachycardic HR 98. Source- secondary to lower extremity diabetic foot ulcer and cellulitis, see below. Lactic acid 1.0. Blood cultures with NGTD. Continue IVF. Monitor CBC and vitals. LLE Diabetic Foot Ulcer and BLE Cellulitis, Failed Outpatient: with sepsis as above. L > R. Completed antibiotic treatment with Bactrim 1 week ago. Continue IV Vancomycin. Consulted podiatry. Wound culture with NGTD Topical antimicrobial infection cream. Improving. Diabetes Mellitus with Neuropathy: chronic, blood glucoses labile. Restarted patient's Levemir 60u bid and Gabapentin. Hemoglobin A1c 14, probably an element of noncompliance. Better controlled here after home meds restarted. Monitor Accu-Cheks and cover with low dose SSI. Dyspnea/LE Edema: unclear etiology, possible underlying COPD. Doubt CHF with BNP 78, CXR unremarkable. Doppler U/S negative for DVT LE. Checked VQ scan, discussed with radiology, low probability for PE. O2 and nebs as needed. Check abdominal sonogram to evaluate liver, kidneys and for ascites HTN/HLD/PVD: chronic, continue patient's lisinopril, Plavix. BPH: chronic, continue patient's Proscar GERD: chronic, continue patient's Protonix. All other medical conditions stable, continue home medications as appropriate. DVT Prophylaxis: Lovenox Written by Car Sam, acting as scribe for Dr. Healy on 01/24/17 at 10:10. All or portions of this note were transcribed by scribe []. I, Dr. Yoseph Healy personally performed the history, physical exam, and medical decision making; and confirmed the accuracy of the information in the transcribed note. Authenticated by Dr. Yoseph Healy on 01/24/17 at 16:01. Discharge Planning Possible discharge planning when cleared by podiatry Car Sam Jan 24, 2017 10:10 Yoseph Healy MD Jan 24, 2017 16:01
[2017-01-24] MEDS: MUPIROCIN 2% OINT 22 GM TUBE TOPICAL SCH ×2 (12:38→23:52)
[2017-01-24] MEDS ORDERED: GABA600T PO (12:43)
--- NOTE | 2017-01-24 14:33 | PD.POD ---
Subjective Pain score: 3 Remarks left foot does not hurt, but leg, calf and belly hurt Past Med/Surg/Social History Social History Smoking Status: Current Every Day Smoker Objective Vital Signs Vital Signs Date Time Temp Pulse Resp B/P Pulse Ox O2 Delivery O2 Flow Rate FiO2 01/24/17 11:56 68 146/65 01/24/17 08:44 Room Air 01/24/17 08:44 97.0 89 20 98 01/24/17 04:06 97.4 79 20 128/61 95 01/24/17 00:13 98.1 87 20 121/56 95 01/23/17 20:02 96 01/23/17 19:31 97.4 93 20 115/54 95 01/23/17 18:42 18 01/23/17 16:50 99.3 104 18 138/86 95 01/23/17 15:45 99.7 101 18 120/58 92 Coded Allergies: *MDRO Multi-Drug Resistant Organism (Verified Adverse Reaction, Unknown, ) MRSA (arm wound) - 01/2016 MRSA (blood, urine, wound) - 06/2013 Medications and IVs Administered Medications Medications (Trade) Dose Ordered Sig/Sumanth Route PRN Reason Start Time Stop Time Status Last Admin Dose Admin IV Flush (NS Flush) 2 ml BID FLUSH 01/23/17 09:00 01/24/17 08:48 Enoxaparin Sodium (Lovenox Inj) 40 mg Q24H SQ 01/23/17 09:00 01/24/17 08:48 Clopidogrel Bisulfate (Plavix) 75 mg DAILY PO 01/23/17 09:00 01/24/17 08:48 Finasteride (Proscar) 5 mg DAILY PO 01/23/17 09:00 01/24/17 08:47 Insulin Detemir (Levemir Inj) 60 units BID SQ 01/23/17 09:00 01/24/17 09:07 Lisinopril (Prinivil) 2.5 mg DAILY PO 01/23/17 09:00 01/24/17 08:47 Pantoprazole Sodium (Protonix) 40 mg DAILY PO 01/23/17 09:00 01/24/17 08:47 Acetaminophen/ Hydrocodone Bitart ([place] 5-325 Mg) 1 tab Q6H PRN PO PAIN SCALE 1 TO 5 01/23/17 03:00 01/23/17 10:36 Acetaminophen/ Hydrocodone Bitart ([place] 10-325 Mg) 1 tab Q6H PRN PO PAIN SCALE 6 TO 10 01/23/17 03:00 01/24/17 09:03 Nystatin 1 applic 1 applic Q12HR TOPICAL 01/23/17 10:00 01/24/17 09:03 Vancomycin HCl/ Sodium Chloride (Vancomycin Inj/ NS 250 ml Inj) 262.5 ml @ 262.5 mls/ hr Q12H IV 01/23/17 15:00 01/24/17 03:28 Mupirocin (Bactroban 2% Oint) 1 applic Q12HR TOPICAL 01/24/17 10:15 01/24/17 12:38 Gabapentin (Neurontin) 600 mg TID PO 01/24/17 13:00 01/24/17 12:39 Other Results Laboratory Tests Test 01/22/17 01/23/17 22:50 03:40 White Blood Count 17.1 TH/MM3 15.6 TH/MM3 Red Blood Count 4.07 MIL/MM3 3.69 MIL/MM3 Hemoglobin 11.2 GM/DL 10.1 GM/DL Hematocrit 33.8 % 30.9 % Mean Corpuscular Volume 83.2 FL 83.7 FL Mean Corpuscular Hemoglobin 27.5 PG 27.2 PG Mean Corpuscular Hemoglobin 33.0 % 32.6 % Concent Red Cell Distribution Width 15.7 % 15.6 % Platelet Count 523 TH/MM3 508 TH/MM3 Mean Platelet Volume 7.7 FL 7.4 FL Neutrophils (%) (Auto) 67.9 % 63.9 % Lymphocytes (%) (Auto) 22.3 % 25.1 % Monocytes (%) (Auto) 6.5 % 6.3 % Eosinophils (%) (Auto) 1.9 % 2.5 % Basophils (%) (Auto) 1.4 % 2.2 % Neutrophils # (Auto) 11.6 TH/MM3 10.0 TH/MM3 Lymphocytes # (Auto) 3.8 TH/MM3 3.9 TH/MM3 Monocytes # (Auto) 1.1 TH/MM3 1.0 TH/MM3 Eosinophils # (Auto) 0.3 TH/MM3 0.4 TH/MM3 Basophils # (Auto) 0.2 TH/MM3 0.3 TH/MM3 CBC Comment DIFF FINAL DIFF FINAL Differential Comment Laboratory Tests Test 01/22/17 01/22/17 01/22/17 01/23/17 22:35 22:45 22:50 03:40 Lactic Acid Level 1.0 mmol/L Sodium Level 133 MEQ/L 139 MEQ/L Potassium Level 4.5 MEQ/L 4.3 MEQ/L Chloride Level 97 MEQ/L 103 MEQ/L Carbon Dioxide Level 26.2 MEQ/L 28.4 MEQ/L Anion Gap 10 MEQ/L 8 MEQ/L Blood Urea Nitrogen 24 MG/DL 20 MG/DL Creatinine 0.98 MG/DL 0.88 MG/DL Estimat Glomerular Filtration 80 ML/MIN 91 ML/MIN Rate Random Glucose 86 MG/DL 83 MG/DL Calcium Level 8.7 MG/DL 8.4 MG/DL Magnesium Level 2.6 MG/DL Total Bilirubin 0.1 MG/DL Aspartate Amino Transf 16 U/L (AST/SGOT) Alanine Aminotransferase 24 U/L (ALT/SGPT) Alkaline Phosphatase 215 U/L Total Protein 6.9 GM/DL Albumin 2.5 GM/DL B-Type Natriuretic Peptide 78 PG/ML Hemoglobin A1c 14.3 % Test 01/24/17 04:25 Creatinine 0.80 MG/DL Estimat Glomerular Filtration 102 ML/MIN Rate Microbiology Date/Time Procedure Status Source Growth 01/22/17 22:45 Aerobic Blood Culture - Preliminary Resulted Blood Peripheral NO GROWTH IN 2 DAYS 01/22/17 22:45 Anaerobic Blood Culture - Preliminary Resulted Blood Peripheral NO GROWTH IN 2 DAYS 01/22/17 22:50 Aerobic Blood Culture - Preliminary Resulted Blood Peripheral NO GROWTH IN 2 DAYS 01/22/17 22:50 Anaerobic Blood Culture - Preliminary Resulted Blood Peripheral NO GROWTH IN 2 DAYS 01/23/17 17:30 Gram Stain - Final Resulted Wound Toe 01/23/17 17:30 Wound Culture - Preliminary Resulted Wound Toe Physical Exam Remarks BL leg improved redness, however calf BL is hard with minimal pitting edema, Left foot 5th digit ulcer medial digit with minimal redness, no drainage, no bone exposed, BL feet are warm good alignment of BL feet and ankles goos musles strength. Assessment & Plan A/P BL LE Cellulilits with left 5th digit ulcer. Redness is improving, however calf and leg not so much. Wound care for now on the digit appears viable, continue ABX until redness resolved.. Reported to Medicine, belly complaint, will Fu intermittently. Maurice Epstein DPM Jan 24, 2017 14:33
[2017-01-24] MEDS ORDERED: PHARMACY ORDERED LAB XX ONE (14:45)
[2017-01-24] MEDS: FUROSEMIDE 20 MG/2 ML VIAL IV PUSH SCH (16:44)
--- NOTE | 2017-01-24 23:31 | RADRPT ---
EXAM DATE/TIME: 01/24/2017 22:27 [place] COMPARISON: No previous studies available for comparison. INDICATIONS : Liver disease and ascites. MEDICAL HISTORY : Hypercholesterolemia. Hypertension. Gastroesophageal reflux disease. Legally blind. Neuropathy. Hiata l hernia. Arthritis. Herniated disks. Diabetes. Skin cancer. MRSA. SURGICAL HISTORY : Internal defibrillator. Wound debridement. Blood clot removal right arm. ENCOUNTER: Initial ACUITY: 1 day PAIN SCORE: 7/10 LOCATION: Bilateral abdomen. MEASUREMENTS: LIVER: 21.9 cm length COMMON DUCT: 4 mm RIGHT KIDNEY: 13.5 x 6.3 x 6.8 cm LEFT KIDNEY: 14.3 x 5.6 x 6.3 cm SPLEEN: 11.6 cm length AORTA: 2.6cm maximal COMPLETE APPROPRIATE ITEMS PRE PROCEDURE: ID x 2: Complete NameDate of BirthEducation: Nurse/Technologist explained procedure to patient/famil y. Patient/family demonstrates understanding of procedure. FINDINGS: LIVER: Normal echotexture without focal lesion or ductal dilatation. COMMON DUCT: No intraluminal mass or stone visualized. GALLBLADDER: Contains no stones, demonstrates no wall thickening or pericholecystic fluid. PANCREAS: The visualized portions are within normal limits. RIGHT KIDNEY: No hydronephrosis, stone or mass. LEFT KIDNEY: No hydronephrosis, stone or mass. SPLEEN: No focal lesion. AORTA: Non aneurysmal. IVC: Within normal limits. CONCLUSION: Liver is prominent in size. Abdominal ultrasound otherwise within normal limits. Asael Parks MD on January 24, 2017 at 23:29 Board Certified Radiologist. This report was verified electronically.
[2017-01-25] VITALS (7 sets, daily range): BP systolic 149–178; BP diastolic 63–78; PULSE 91–95; RESP 12–20; TEMP 95.3–98.3; O2SAT 93–99
[2017-01-25] MEDS: ACETAMINOPHEN/HYDROcodone 325 MG/10 MG TAB PO PRN ×4 (00:41→21:47)
[2017-01-25] MEDS: VANCOMYCIN INJ 1,250 MG in SODIUM CHLOR 0.9% 250 ML INJ 250 ML IV SCH ×2 (04:09→15:06)
[2017-01-25 05:30] LABS: BICARBONATE 25.8 MEQ/L (21.0-32.0); MAGNESIUM 2.1 MG/DL (1.5-2.5); POTASSIUM 4.2 MEQ/L (3.5-5.1)
[2017-01-25] MEDS: RESP: ALBUTEROL 0.63 MG/3 ML NEB (PRN) NEB ×2 (05:57→22:41)
[2017-01-25] MEDS: INSULIN ASPART SUPPLEMENTAL SCALE SQ SCH ×4 (06:16→21:58)
[2017-01-25] MEDS: MUPIROCIN 2% OINT 22 GM TUBE TOPICAL SCH ×2 (09:00→21:00)
[2017-01-25] MEDS: NYSTATIN 100,000 UNIT/GM CREAM 15 GM TOPICAL SCH ×2 (09:00→21:47)
[2017-01-25] MEDS: GABAPENTIN 300 MG CAP PO SCH ×4 (09:02→21:47)
[2017-01-25] MEDS: LISINOPRIL 5 MG TAB PO SCH (09:02)
[2017-01-25] MEDS: SODIUM CHLORIDE 0.9% FLUSH 5 ML FLUSH FLUSH SCH ×2 (09:02→21:47)
[2017-01-25] MEDS: INSULIN DETEMIR 100 UNITS/ML VIAL SQ SCH ×2 (09:03→21:48)
[2017-01-25] MEDS: FINASTERIDE 5 MG TAB PO SCH (09:03)
[2017-01-25] MEDS: PANTOPRAZOLE SOD 40 MG DELAYED RELEASE TAB PO SCH (09:03)
[2017-01-25] MEDS: ENOXAPARIN SODIUM 40 MG/0.4 ML SYRINGE SQ SCH (09:03)
[2017-01-25] MEDS: CLOPIDOGREL 75 MG TAB PO SCH (09:03)
[2017-01-25] MEDS: FUROSEMIDE 20 MG/2 ML VIAL IV PUSH SCH ×2 (09:04→17:49)
--- NOTE | 2017-01-25 14:15 | HHI.PR ---
Subjective Remarks Follow-up for lower extremity cellulitis. Patient does have swelling of his lower legs. Feels like his abdomen is swollen as well. He complains of generalized lower extremity pain. Objective Vitals Vital Signs Date Time Temp Pulse Resp B/P Pulse Ox O2 Delivery O2 Flow Rate FiO2 01/25/17 12:00 95.3 91 12 178/78 98 01/25/17 08:00 97.7 95 16 149/63 99 01/25/17 06:03 96 21 01/25/17 04:00 97.1 94 20 160/65 93 01/25/17 03:42 18 01/25/17 00:00 98.3 93 20 164/76 93 01/24/17 20:30 Room Air 01/24/17 20:00 98.4 95 22 175/79 94 01/24/17 17:50 98.2 91 20 139/65 95 I/O 01/24/17 01/24/17 01/24/17 01/25/17 01/25/17 01/25/17 07:00 15:00 23:00 07:00 15:00 23:00 Intake Total 300 ml 500 ml 480 ml 325 ml Output Total 400 ml Balance -100 ml 500 ml 480 ml 325 ml Intake Oral 240 ml 480 ml 120 ml IV Total 300 ml 260 ml 205 ml Output Urine Total 400 ml # Voids 1 3 # Bowel Movements 1 0 1 Result Diagram: 01/23/17 0340 01/25/17 0414 Imaging Last Impressions Abdomen Ultrasound 01/24/17 0000 Signed Impressions: Service Date/Time: Tuesday, January 24, 2017 22:27 - CONCLUSION: Liver is prominent in size. Abdominal ultrasound otherwise within normal limits. Asael Parks MD Lung Scan- Nuclear Medicine 01/23/17 0000 Signed Impressions: Service Date/Time: Monday, January 23, 2017 10:47 - CONCLUSION: Probability for pulmonary embolism.. Piyush Barrera MD FACR Lower Extremity Ultrasound [id number]/22/172237 Signed Impressions: Service Date/Time: Sunday, January 22, 2017 23:01 - CONCLUSION: No evidence of lower extremity DVT on the right or left. Asael Parks MD Foot X-Ray [id number]/22/172237 Signed Impressions: Service Date/Time: Monday, January 23, 2017 00:12 - CONCLUSION: Chronic bone defect in the fifth toe proximal phalanx. No acute findings identified. Asael Parks MD Chest X-Ray 01/22/17 3763 Signed Impressions: Service Date/Time: Monday, January 23, 2017 00:08 - CONCLUSION: No acute cardiopulmonary disease identified. Asael Parks MD Objective Remarks GENERAL: Well-developed well-nourished. In no acute distress. SKIN: Warm and dry. Bilateral lower extremity cellulitis L>R, improving. Ulcer lateral aspect left foot. HEENT: Normocephalic. Pupils equal and round. Mucous membranes pink and moist. CARDIOVASCULAR: Regular rate and rhythm. No murmur appreciated. RESPIRATORY: No accessory muscle use. Clear to auscultation. Breath sounds equal bilaterally. GASTROINTESTINAL: Abdomen soft, non-tender, nondistended. Bowel sounds x4. MUSCULOSKELETAL: Improving erythema around both ankles, worse on the left. 1+ lower extremity edema bilaterally. No clubbing or cyanosis. NEUROLOGICAL: Awake and alert. No focal neurological deficits. Moves upper and lower extremities spontaneously. Normal speech. PSYCHIATRIC: Appropriate mood and affect; insight and judgment normal. A/P Assessment and Plan 51-year-old male with history of DM, neuropathy, HTN, HLD, GERD, PVD, presents with a 2-3 day history of worsening bilateral leg swelling and pain. Sepsis: leukocytosis WBC 17K, tachycardic HR 98. Source- secondary to lower extremity diabetic foot ulcer and cellulitis, see below. Lactic acid 1.0. Blood cultures with NGTD. Continue IVF. Follow-up CBC LLE Diabetic Foot Ulcer and BLE Cellulitis, Failed Outpatient: with sepsis as above. L > R. Completed antibiotic treatment with Bactrim 1 week ago. Continue IV Vancomycin. Consulted podiatry. Wound culture with group D enterococcus, await sensitivities. Topical antimicrobial infection cream. Improving. Diabetes Mellitus with Neuropathy: chronic, blood glucoses labile. Restarted patient's Levemir 60u bid and Gabapentin. Hemoglobin A1c 14, probably an element of noncompliance. Better controlled here after home meds restarted. Monitor Accu-Cheks and cover with low dose SSI. Consider metformin Dyspnea/LE Edema: unclear etiology, possible underlying COPD. Doubt CHF with BNP 78, CXR unremarkable. Doppler U/S negative for DVT LE. Checked VQ scan, discussed with radiology, low probability for PE. O2 and nebs as needed. Given IV Lasix, increase to twice daily. Monitor BMP and electrolytes. Likely a combination of infection and low albumin. Teds and elevation Abdominal swelling: Nonspecific. Abdominal sonogram with no ascites HTN/HLD/PVD: chronic, continue patient's lisinopril, Plavix. BPH: chronic, continue patient's Proscar GERD: chronic, continue patient's Protonix. All other medical conditions stable, continue home medications as appropriate. DVT Prophylaxis: Lovenox Written by Car Sam, acting as scribe for Dr. Healy on 01/25/17 at 14:13. All or portions of this note were transcribed by scribe []. I, Dr. Yoseph Healy personally performed the history, physical exam, and medical decision making; and confirmed the accuracy of the information in the transcribed note. Authenticated by Dr. Yoseph Healy on 01/25/17 at 16:55. Discharge Planning Hopefully discharge tomorrow if patient continues to improve Car Sam Jan 25, 2017 14:15 Yoseph Healy MD Jan 25, 2017 16:55
[2017-01-26] VITALS: BP 133/63; PULSE 80; RESP 20; TEMP 97.6; O2SAT 98
[2017-01-26] MEDS: VANCOMYCIN INJ 1,250 MG in SODIUM CHLOR 0.9% 250 ML INJ 250 ML IV SCH ×2 (03:14→14:43)
[2017-01-26] MEDS: ACETAMINOPHEN/HYDROcodone 325 MG/10 MG TAB PO PRN ×3 (03:15→14:42)
[2017-01-26 05:36] LABS: AUTOMATED NEUTROPHIL # 7.5 TH/MM3 (1.8-7.7); BASOPHIL % 0.2 % (0.0-2.0); EOSINOPHIL # 0.2 TH/MM3 (0-0.4); EOSINOPHIL % 1.9 % (0.0-4.0); HEMATOCRIT 28.7 % (39.0-51.0); HEMO FLAGS DIFF FINAL; LYMPH % 29.2 % (9.0-44.0); LYMPHOCYTE # 3.5 TH/MM3 (1.0-4.8); MEAN CORPUSCULAR HEMOGLOBIN 27.4 PG (27.0-34.0); MEAN CORPUSCULAR HGB CONC 32.6 % (32.0-36.0); NEUT % 61.7 % (16.0-70.0); PLATELET COUNT 437 TH/MM3 (150-450); RED BLOOD COUNT 3.41 MIL/MM3 (4.50-5.90); RED CELL DISTRIBUTION WIDTH 15.9 % (11.6-17.2); WHITE BLOOD COUNT 12.1 TH/MM3 (4.0-11.0)
[2017-01-26 06:19] LABS: BICARBONATE 24.7 MEQ/L (21.0-32.0); POTASSIUM 4.2 MEQ/L (3.5-5.1)
[2017-01-26] MEDS: INSULIN ASPART SUPPLEMENTAL SCALE SQ SCH ×2 (07:00→11:22)
[2017-01-26 08:00] VITALS: BP 147/67; PULSE 86; RESP 18; TEMP 96.8; O2SAT 97
[2017-01-26] MEDS: ENOXAPARIN SODIUM 40 MG/0.4 ML SYRINGE SQ SCH (08:20)
[2017-01-26] MEDS: PANTOPRAZOLE SOD 40 MG DELAYED RELEASE TAB PO SCH (08:20)
[2017-01-26] MEDS: CLOPIDOGREL 75 MG TAB PO SCH (08:20)
[2017-01-26] MEDS: FUROSEMIDE 20 MG/2 ML VIAL IV PUSH SCH (08:20)
[2017-01-26] MEDS: FINASTERIDE 5 MG TAB PO SCH (08:20)
[2017-01-26] MEDS: LISINOPRIL 5 MG TAB PO SCH (08:20)
[2017-01-26] MEDS: SODIUM CHLORIDE 0.9% FLUSH 5 ML FLUSH FLUSH SCH (08:21)
[2017-01-26] MEDS: GABAPENTIN 300 MG CAP PO SCH ×2 (08:21→13:16)
[2017-01-26] MEDS: INSULIN DETEMIR 100 UNITS/ML VIAL SQ SCH (08:21)
[2017-01-26] MEDS: MUPIROCIN 2% OINT 22 GM TUBE TOPICAL SCH (08:22)
[2017-01-26] MEDS: NYSTATIN 100,000 UNIT/GM CREAM 15 GM TOPICAL SCH (08:22)
[2017-01-26 11:52] VITALS: BP 126/76; PULSE 87; RESP 18; TEMP 96; O2SAT 96
--- NOTE | 2017-01-26 12:53 | PD.POD ---
Subjective Pain score: 3 Remarks Doing well feels good enough to go home Past Med/Surg/Social History Social History Smoking Status: Current Every Day Smoker Objective Vital Signs Vital Signs Date Time Temp Pulse Resp B/P Pulse Ox O2 Delivery O2 Flow Rate FiO2 01/26/17 11:52 96.0 87 18 126/76 96 01/26/17 08:00 96.8 86 18 147/67 97 01/26/17 00:00 97.6 80 20 133/63 98 01/25/17 20:00 96.5 93 20 155/70 98 01/25/17 16:06 18 01/25/17 16:00 96.5 92 16 171/74 96 Coded Allergies: *MDRO Multi-Drug Resistant Organism (Verified Adverse Reaction, Unknown, ) MRSA (arm wound) - 01/2016 MRSA (blood, urine, wound) - 06/2013 Medications and IVs Administered Medications Medications (Trade) Dose Ordered Sig/Sumanth Route PRN Reason Start Time Stop Time Status Last Admin Dose Admin IV Flush (NS Flush) 2 ml UNSCH PRN FLUSH FLUSH AFTER USING IV ACCESS 01/23/17 02:45 01/26/17 03:14 IV Flush (NS Flush) 2 ml BID FLUSH 01/23/17 09:00 01/26/17 08:21 Enoxaparin Sodium (Lovenox Inj) 40 mg Q24H SQ 01/23/17 09:00 01/26/17 08:20 Clopidogrel Bisulfate (Plavix) 75 mg DAILY PO 01/23/17 09:00 01/26/17 08:20 Finasteride (Proscar) 5 mg DAILY PO 01/23/17 09:00 01/26/17 08:20 Insulin Detemir (Levemir Inj) 60 units BID SQ 01/23/17 09:00 01/26/17 08:21 Lisinopril (Prinivil) 2.5 mg DAILY PO 01/23/17 09:00 01/26/17 08:20 Pantoprazole Sodium (Protonix) 40 mg DAILY PO 01/23/17 09:00 01/26/17 08:20 Acetaminophen/ Hydrocodone Bitart ([place] 5-325 Mg) 1 tab Q6H PRN PO PAIN SCALE 1 TO 5 01/23/17 03:00 01/23/17 10:36 Acetaminophen/ Hydrocodone Bitart ([place] 10-325 Mg) 1 tab Q6H PRN PO PAIN SCALE 6 TO 10 01/23/17 03:00 01/26/17 08:39 Nystatin 1 applic 1 applic Q12HR TOPICAL 01/23/17 10:00 01/26/17 08:22 Vancomycin HCl/ Sodium Chloride (Vancomycin Inj/ NS 250 ml Inj) 262.5 ml @ 262.5 mls/ hr Q12H IV 01/23/17 15:00 01/26/17 03:14 Mupirocin (Bactroban 2% Oint) 1 applic Q12HR TOPICAL 01/24/17 10:15 01/26/17 08:22 Gabapentin (Neurontin) 600 mg QID PO 01/25/17 18:00 01/26/17 08:21 Furosemide (Lasix Inj) 20 mg BID@09,18 IV PUSH 01/25/17 18:00 01/26/17 08:20 Other Results Laboratory Tests Test 01/26/17 05:02 White Blood Count 12.1 TH/MM3 Red Blood Count 3.41 MIL/MM3 Hemoglobin 9.3 GM/DL Hematocrit 28.7 % Mean Corpuscular Volume 84.0 FL Mean Corpuscular Hemoglobin 27.4 PG Mean Corpuscular Hemoglobin 32.6 % Concent Red Cell Distribution Width 15.9 % Platelet Count 437 TH/MM3 Mean Platelet Volume 7.5 FL Neutrophils (%) (Auto) 61.7 % Lymphocytes (%) (Auto) 29.2 % Monocytes (%) (Auto) 7.0 % Eosinophils (%) (Auto) 1.9 % Basophils (%) (Auto) 0.2 % Neutrophils # (Auto) 7.5 TH/MM3 Lymphocytes # (Auto) 3.5 TH/MM3 Monocytes # (Auto) 0.8 TH/MM3 Eosinophils # (Auto) 0.2 TH/MM3 Basophils # (Auto) 0.0 TH/MM3 CBC Comment DIFF FINAL Differential Comment Laboratory Tests Test 01/25/17 01/26/17 04:14 05:02 Sodium Level 138 MEQ/L 139 MEQ/L Potassium Level 4.2 MEQ/L 4.2 MEQ/L Chloride Level 104 MEQ/L 105 MEQ/L Carbon Dioxide Level 25.8 MEQ/L 24.7 MEQ/L Anion Gap 8 MEQ/L 9 MEQ/L Blood Urea Nitrogen 18 MG/DL 17 MG/DL Creatinine 0.88 MG/DL 0.82 MG/DL Estimat Glomerular Filtration 91 ML/MIN 99 ML/MIN Rate Random Glucose 243 MG/DL 117 MG/DL Calcium Level 7.9 MG/DL 8.0 MG/DL Magnesium Level 2.1 MG/DL 2.0 MG/DL Microbiology Date/Time Procedure Status Source Growth 01/23/17 17:30 Gram Stain - Final Resulted Wound Toe 01/23/17 17:30 Wound Culture - Preliminary Resulted Group D Enterococcus Exam-Podiatry Remarks BL leg much improved redness, calf edema remains but improved, Left foot 5th digit ulcer medial digit with minimal redness, no drainage, no bone exposed, BL feet are warm good alignment of BL feet and ankles goos muscles strength. Assessment & Plan A/P BL LE Cellulilits with left 5th digit ulcer. Appears stable for out pt FU, patient has woundcare and podiatry FU. Maurice Epstein DPM Jan 26, 2017 12:53
--- NOTE | 2017-01-26 12:56 | HHI.DCPOC ---
Discharge Care Plan Diagnosis: (1) Bilateral lower leg cellulitis (2) Diabetic ulcer of left fifth toe (3) Diabetes mellitus, type II Goals to Promote Your Health * To prevent worsening of your condition and complications * To maintain your health at the optimal level Directions to Meet Your Goals Take your medications as prescribed Follow your dietary instruction Follow activity as directed Keep your appointments as scheduled Take your immunizations and boosters as scheduled If your symptoms worsen call your PCP, if no PCP go to Urgent Care Center or Emergency Room Smoking is Dangerous to Your Health. Avoid second hand smoke Call the 24-hour hour crisis hotline for domestic abuse at Eboni Jones PA-C Jan 26, 2017 12:56 pm
--- NOTE | 2017-01-26 13:03 | HHI.DS ---
Discharge Summary Admission Date Jan 23, 2017 at 1:37 am Discharge Date: Jan 26, 2017 Admitting Diagnosis BLE cellulitis (1) Bilateral lower leg cellulitis ICD Code: L03.116 Diagnosis: Principal (2) Diabetic ulcer of left fifth toe ICD Code: E11.621 Diagnosis: Principal (3) Diabetes mellitus, type II ICD Code: E11.9 Diagnosis: Secondary Procedures None. Brief History - From Admission 51-year-old male with history of DM, neuropathy, HTN, HLD, GERD, PVD, presents with a 2-3 day history of worsening bilateral leg swelling and pain. The patient states he has been dealing with a left 5th toe ulceration, seeing wound care and food services director Dr. Ponce, s/p I&D, completed antibiotic 7 days treatment with Bactrim 1 week ago. However even after antibiotic treatment he started to notice worsening redness/warmth/edema extending proximally up the left leg. He also started to notice warmth and redness of the right lower extremity to a lesser extent. He denies any recent fevers but does have some occasional chills. The patient also does report shortness of breath which he believes is related to the pain, however also reports orthopnea and dyspnea on exertion. Denies any cough or chest pains. He denies any other medical complaints at this time. CBC/BMP: 01/26/17 0502 01/26/17 0502 Significant Findings Laboratory Tests Test 01/24/17 01/25/17 01/26/17 16:00 04:14 05:02 Vancomycin Level Trough 13.2 MCG/ML (5.0-10.0) Random Glucose 243 MG/DL 117 MG/DL (74-106) (74-106) Calcium Level 7.9 MG/DL 8.0 MG/DL (8.5-10.1) (8.5-10.1) White Blood Count 12.1 TH/MM3 (4.0-11.0) Red Blood Count 3.41 MIL/MM3 (4.50-5.90) Hemoglobin 9.3 GM/DL (13.0-17.0) Hematocrit 28.7 % (39.0-51.0) Imaging Last Impressions Abdomen Ultrasound 01/24/17 0000 Signed Impressions: Service Date/Time: Tuesday, January 24, 2017 22:27 - CONCLUSION: Liver is prominent in size. Abdominal ultrasound otherwise within normal limits. Asael Parks MD Lung Scan-VQ Nuclear Medicine 01/23/17 0000 Signed Impressions: Service Date/Time: Monday, January 23, 2017 10:47 - CONCLUSION: Probability for pulmonary embolism.. Piyush Barrera MD FACR Lower Extremity Ultrasound [id number]/22/172237 Signed Impressions: Service Date/Time: Sunday, January 22, 2017 23:01 - CONCLUSION: No evidence of lower extremity DVT on the right or left. Asael Parks MD Foot X-Ray [id number]/22/172237 Signed Impressions: Service Date/Time: Monday, January 23, 2017 00:12 - CONCLUSION: Chronic bone defect in the fifth toe proximal phalanx. No acute findings identified. Asael Parks MD Chest X-Ray [id number]/22/172237 Signed Impressions: Service Date/Time: Monday, January 23, 2017 00:08 - CONCLUSION: No acute cardiopulmonary disease identified. Asael Parks MD PE at Discharge GENERAL: Well-developed well-nourished middle aged male patient in [facility]. SKIN: Warm and dry. Bilateral lower extremity cellulitis with minimal erythema/ warmth today, L>R, much improved. Left foot 5th medial digit ulcer with minimal redness, no drainage. HEENT: Normocephalic. Pupils equal and round. Mucous membranes pink and moist. CARDIOVASCULAR: Regular rate and rhythm. No murmur appreciated. RESPIRATORY: No accessory muscle use. Clear to auscultation. Breath sounds equal bilaterally. GASTROINTESTINAL: Abdomen soft, non-tender, nondistended. Bowel sounds x4. MUSCULOSKELETAL: Improving minimal erythema around both ankles, worse on the left. Trace lower extremity edema bilaterally, much improved. No clubbing or cyanosis. NEUROLOGICAL: Awake and alert. No focal neurological deficits. Moves upper and lower extremities spontaneously. Normal speech. PSYCHIATRIC: Appropriate mood and affect; insight and judgment normal. Pt update on day of discharge Follow up for cellulitis, edema, toe ulcer. The patient reports feeling well today, wants to go home. He states his lower extremity redness and swelling has significantly improved. Jg hose is helping. Denies fevers/chills. Tolerating oral intake. He has no other medical complaints at this time. Hospital Course 51-year-old male with history of DM, neuropathy, HTN, HLD, GERD, PVD, presents with a 2-3 day history of worsening bilateral leg swelling and pain. Sepsis: leukocytosis WBC 17K, tachycardic HR 98. Source- secondary to lower extremity diabetic foot ulcer and cellulitis, see below. Lactic acid 1.0. Blood cultures with NGTD. Continue IVF. Leukocytosis improved, WBC 12.1K, afebrile throughout admission. LLE Diabetic Foot Ulcer and BLE Cellulitis, Failed Outpatient: with sepsis as above. L > R. Completed antibiotic treatment with Bactrim 1 week ago. Continue IV Vancomycin. Consulted podiatry. Wound culture with group D enterococcus, awaiting sensitivities. Topical antimicrobial infection cream. Cellulitis much improved. Will discharge on po Macrobid and Doxycycline x7 more days, to complete total 10days of abx. Diabetes Mellitus with Neuropathy: chronic, blood glucoses labile. Restarted patient's Levemir 60u bid and Gabapentin. Hemoglobin A1c 14, probably an element of noncompliance. Monitor Accu-Cheks and cover with low dose SSI. Better controlled here after home meds restarted. Dyspnea/LE Edema: unclear etiology, possible underlying COPD. Doubt CHF with BNP 78, CXR unremarkable. Doppler U/S negative for DVT LE. Checked VQ scan, discussed with radiology, low probability for PE. O2 and nebs as needed. Given IV Lasix, increased to twice daily. Monitor BMP and electrolytes. Likely a combination of infection and low albumin. Teds and elevation. Significantly improved. Likely d/c on short course of po diuretic. Abdominal swelling: Nonspecific. Abdominal sonogram with no ascites. Resolved. HTN/HLD/PVD: chronic, continue patient's lisinopril, Plavix. BPH: chronic, continue patient's Proscar GERD: chronic, continue patient's Protonix. All other medical conditions stable, continue home medications as appropriate. DVT Prophylaxis: Lovenox Patient wants to be discharged today aware sensitivities are not final he will follow-up with his PCP. Written by Eboni Jones, acting as scribe for Dr. Healy on 01/26/17 at 12: 25. All or portions of this note were transcribed by scribderek []. I, Dr. Yoseph Healy personally performed the history, physical exam, and medical decision making; and confirmed the accuracy of the information in the transcribed note. Authenticated by Dr. Yoseph Healy on 01/26/17 at 14:26. Pt Condition on Discharge: Good Discharge Disposition: Discharge Home Discharge Time: <= 30 minutes Discharge Instructions DIET: Follow Instructions for: Diabetic Diet Activities you can perform: Regular-No Restrictions Follow up Referrals: PCP Follow-up - 2-3 Days with Rey Hernandez MD Podiatry - 1 Week New Medications: Doxycycline (Monohydrate) (Doxycycline) 100 Mg Cap 1 TAB PO BID Infection #14 TAB Furosemide (Furosemide) 20 Mg Tab 20 MG PO DAILY edema #7 Ref 0 TAB Nitrofurantoin Monohydrate Macrocrystals (Macrobid) 100 Mg Cap 100 MG PO BID Infection #14 Ref 0 CAP Potassium Chloride ER (Klor-Con 10) 10 Meq Tab 10 MEQ PO DAILY Electrolyte Replacement #7 Ref 0 TAB Continued Medications: Clopidogrel (Clopidogrel) 75 Mg Tab 75 MG PO DAILY Blood Clot Prevention #30 Ref 0 TAB Finasteride (Finasteride) 5 Mg Tab 5 MG PO DAILY Do not crush. Manage Prostate Problems #30 Ref 0 TAB Gabapentin (Gabapentin) 600 Mg Tab 600 MG PO QID #60 Ref 0 TAB Hydrocodone-Acetaminophen (Hydrocodone-Acetaminophen) 10-325 mg Tab 1 TAB PO Q4H PRN PAIN Ref 0 TAB Insulin Detemir Inj (Levemir Inj) 1,000 unit/ 10 ML Vial 60 UNITS SQ BID Do not mix with any other Insulin. Blood Sugar Management Ref 0 VIAL Lisinopril (Lisinopril) 2.5 Mg Tab 2.5 MG PO DAILY #30 Ref 0 TAB Pantoprazole (Pantoprazole) 40 Mg Tab 40 MG PO DAILY Reflux #30 Ref 0 TAB Eboni Jones PA-C Jan 26, 2017 13:03 Yoseph Healy MD Jan 26, 2017 14:26
[2017-01-26] MEDS ORDERED: POTA-243 PO (14:26)
[2017-01-26] MEDS ORDERED: FURO20TA PO (14:26)
[2017-01-26] MEDS ORDERED: DOXY1CAP91 PO (14:30)
[2017-01-26] MEDS ORDERED: MACR100C2 PO (14:30)
== END 2017-01-26 16:30 | disposition home or self-care (01) | DRG 872 ==
LOC: NEPE 22:25 → NEDA 01-23 01:37 → NEPFCDU 01-23 03:55 → N07B 01-24 17:22
PROVIDERS: ADMIT Internal Medicine; ATTEND Internal Medicine
DX: A41.9 Sepsis, unspecified organism (principal); E11.42 Type 2 diabetes mellitus with diabetic polyneuropathy; E11.621 Type 2 diabetes mellitus with foot ulcer; L03.115 Cellulitis of right lower limb; L03.116 Cellulitis of left lower limb; L97.529 Non-pressure chronic ulcer of other part of left foot with unspecified severity; I10 Essential (primary) hypertension; K21.9 Gastro-esophageal reflux disease without esophagitis; E78.00 Pure hypercholesterolemia, unspecified; F17.200 Nicotine dependence, unspecified, uncomplicated; E78.5 Hyperlipidemia, unspecified; H54.8 Legal blindness, as defined in USA; G62.9 Polyneuropathy, unspecified; N40.0 Benign prostatic hyperplasia without lower urinary tract symptoms; G89.29 Other chronic pain; M54.5 Low back pain; M54.30 Sciatica, unspecified side; K44.9 Diaphragmatic hernia without obstruction or gangrene; Z86.14 Personal history of Methicillin resistant Staphylococcus aureus infection; Z79.84 Long term (current) use of oral hypoglycemic drugs; Z85.828 Personal history of other malignant neoplasm of skin; Z91.19 Patient's noncompliance with other medical treatment and regimen; R06.02 Shortness of breath
CPT/HCPCS: 71010; 73630; 76700; 78582; 80048; 80053; 80202; 82565; 82948; 83036; 83605; 83735; 83880; 85025; 86403; 87040; 87070; 87077; 87186; 87205; 93970; 94664; A9540; A9567; J1650; J1815; J1940; J3370; J7050; J7613

== ENCOUNTER 2017-02-07 09:53 | Emergency (ER) | payer OTHER ==
[~2017-02-07] VITALS: Ht 180.3 cm; Wt 95.0 kg
[~2017-02-07 09:53] MED LIST changes: -AUGM875T PO; +CLOP75TA PO; -CYCL-36 PO; +DOXY1CAP91 PO; +FINA5TAB2 PO; +FURO20TA PO; +HYDR-3583 PO; -LEVEMIR SC; +LEVEMIR SQ; +LISI2.5T3 PO; -LISI5 PO; -LORTA5 PO; +MACR100C2 PO; -NEOS15T TOPICAL; -NOVOLOGP2 SC; +PANT40TA3 PO; -PLAV75TA PO; +POTA-243 PO; -PROS5TAB2 PO; -PROT40TA PO; -RIFA150 PO; -TAMS0.4C67 PO
[2017-02-07 11:00] VITALS: BP 176/89; PULSE 97; RESP 18; TEMP 98.3; O2SAT 95
--- NOTE | 2017-02-07 11:56 | PD ---
HPI Chief Complaint: Respiratory Symptoms Time Seen by Provider: 11:45 Travel History International Travel<30 days: No Contact w/Intl Traveler<30days: No Traveled to known affect area: No History of Present Illness HPI This is a 51-year-old male with history of diabetes, neuropathy, hypertension, hyperlipidemia, GERD, peripheral vascular disease. He presents with worsening bilateral lower extremity edema as well as some pleuritic chest discomfort. The patient was recently admitted here on January 23 for evaluation of bilateral lower extremity cellulitis as well as diabetic ulcer of the left fifth toe which she has had for the past few months. 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 He completed a seven- day course of doxycycline and reports that since then he has had increased redness in the lower extremities as well as around the periumbilical region where there is a subcutaneous insulin injections. He endorses some dyspnea with wheezing for the past few months and reports a pleuritic type of chest pain for the past few days. Specifically says "my lungs hurt" when he breathes in. He has had a cough with brown sputum production for 6 months. He relates this to his pack and a half a day smoking habit. He reports that twice a day and her nurse's been coming by and changing his left lower extremity dressings. Denies fevers, dysuria, testicular or scrotal pain. He has no other complaints. PFSH Past Medical History Hx Anticoagulant Therapy: Yes Arthritis: Yes Asthma: No Autoimmune Disease: No Blood Disorders: No Anxiety: No Depression: No Heart Rhythm Problems: No Cancer: Yes (Squamous cell/basal skin cancer) Cardiovascular Problems: Yes High Cholesterol: Yes Chemotherapy: No Chest Pain: No Congestive Heart Failure: No COPD: Yes Cerebrovascular Accident: No Diabetes: Yes Diminished Hearing: No Endocrine: Yes Gastrointestinal Disorders: Yes GERD: Yes Glaucoma: No Genitourinary: No Hepatitis: No Hiatal Hernia: Yes Herniated Disk: Yes (CERVICAL AND LUMBAR) Hypertension: Yes Immune Disorder: No Kidney Stones: No Musculoskeletal: No Neurologic: Yes (Neuropathy) Psychiatric: No Reproductive: No Respiratory: Yes Immunizations Current: Yes Migraines: No Radiation Therapy: No Renal Failure: No Seizures: No Sleep Apnea: No Thyroid Disease: No Ulcer: No Past Surgical History Abdominal Surgery: No AICD: Yes Arteriovenous Shunt: No Cardiac Surgery: No Ear Surgery: No Endocrine Surgery: No Eye Surgery: No Genitourinary Surgery: No Gynecologic Surgery: No Insulin Pump: No Joint Replacement: No Oral Surgery: Yes Pacemaker: No Thoracic Surgery: No Other Surgery: Yes (blood clot removal rue, lle wound debridement) Social History Alcohol Use: No Tobacco Use: Yes Substance Use: No Allergies-Medications (Allergen,Severity, Reaction): Coded Allergies: *MDRO Multi-Drug Resistant Organism (Verified Adverse Reaction, Unknown, ) MRSA (arm wound) - 01/2016 MRSA (blood, urine, wound) - 06/2013 Reported Meds & Prescriptions Reported Meds & Active Scripts Active Doxycycline (Doxycycline (Monohydrate)) 100 Mg Cap 1 Tab PO BID Macrobid (Nitrofurantoin Monoh/Nitrofur Macro) 100 Mg Cap 100 Mg PO BID Klor-Con 10 (Potassium Chloride) 10 Meq Tab 10 Meq PO DAILY Furosemide 20 Mg Tab 20 Mg PO DAILY Reported Gabapentin 600 Mg Tab 600 Mg PO QID Levemir Inj (Insulin Detemir) 1,000 unit/ 10 ML Vial 60 Units SQ BID Do not mix with any other Insulin. Clopidogrel (Clopidogrel Bisulfate) 75 Mg Tab 75 Mg PO DAILY Lisinopril 2.5 Mg Tab 2.5 Mg PO DAILY Finasteride 5 Mg Tab 5 Mg PO DAILY Do not crush. Hydrocodone-Acetaminophen 10-325 mg Tab 1 Tab PO Q4H PRN Pantoprazole (Pantoprazole Sodium) 40 Mg Tab 40 Mg PO DAILY Review of Systems Except as stated in HPI: all other systems reviewed are Neg Physical Exam Narrative GENERAL: This is a chronically ill-appearing male who is in no acute distress. SKIN: Warm and dry. Ulceration noted medial aspect left fifth toe no bony visibility. There is some erythematous changes to the anterior tibial regions bilaterally as well as around the umbilicus. Mild induration of the periumbilical skin. HEAD: Atraumatic. Normocephalic. EYES: Pupils equal and round. No scleral icterus. No injection or drainage. ENT: No nasal bleeding or discharge. Mucous membranes pink and moist. NECK: Trachea midline. No JVD. CARDIOVASCULAR: Regular rate and rhythm. No murmur appreciated. RESPIRATORY: No accessory muscle use. Mild wheezing bilaterally. No crackles. GASTROINTESTINAL: Abdomen soft, non-tender, nondistended. Hepatic and splenic margins not palpable. MUSCULOSKELETAL: No obvious deformities. Skin as noted above with some lower extremity edema bilaterally. NEUROLOGICAL: Awake and alert. No obvious cranial nerve deficits. Motor grossly within normal limits. Normal speech. PSYCHIATRIC: Appropriate mood and affect; insight and judgment normal. Data Data Last Documented VS Vital Signs Date Time Temp Pulse Resp B/P Pulse Ox O2 Delivery O2 Flow Rate FiO2 02/07/17 11:00 98.3 97 18 176/89 95 Orders Electrocardiogram (02/07/17 11:49) Complete Blood Count With Diff (02/07/17 11:49) Comprehensive Metabolic Panel (02/07/17 11:49) Magnesium (Mg) (02/07/17 11:49) Ckmb (Isoenzyme) Profile (02/07/17 11:49) Troponin I (02/07/17 11:49) Chest, Single Ap (02/07/17 11:49) D-Dimer (02/07/17 11:49) Albuterol-Ipratropium Neb (Duoneb Neb) (02/07/17 12:00) Sodium Chlor 0.9% 1000 Ml Inj (Ns 1000 M (02/07/17 13:21) Labs Laboratory Tests Test 02/07/17 12:15 White Blood Count 12.5 TH/MM3 Red Blood Count 3.46 MIL/MM3 Hemoglobin 9.1 GM/DL Hematocrit 28.5 % Mean Corpuscular Volume 82.3 FL Mean Corpuscular Hemoglobin 26.3 PG Mean Corpuscular Hemoglobin 32.0 % Concent Red Cell Distribution Width 16.3 % Platelet Count 417 TH/MM3 Mean Platelet Volume 7.5 FL Neutrophils (%) (Auto) 64.9 % Lymphocytes (%) (Auto) 25.1 % Monocytes (%) (Auto) 7.2 % Eosinophils (%) (Auto) 1.3 % Basophils (%) (Auto) 1.5 % Neutrophils # (Auto) 8.1 TH/MM3 Lymphocytes # (Auto) 3.1 TH/MM3 Monocytes # (Auto) 0.9 TH/MM3 Eosinophils # (Auto) 0.2 TH/MM3 Basophils # (Auto) 0.2 TH/MM3 CBC Comment DIFF FINAL Differential Comment D-Dimer Quantitative (PE/DVT) 0.44 MG/L FEU Sodium Level 136 MEQ/L Potassium Level 4.7 MEQ/L Chloride Level 102 MEQ/L Carbon Dioxide Level 25.5 MEQ/L Anion Gap 9 MEQ/L Blood Urea Nitrogen 26 MG/DL Creatinine 1.38 MG/DL Estimat Glomerular Filtration 54 ML/MIN Rate Random Glucose 268 MG/DL Calcium Level 8.1 MG/DL Magnesium Level 2.0 MG/DL Total Bilirubin LESS THAN 0.1 MG/DL Aspartate Amino Transf 13 U/L (AST/SGOT) Alanine Aminotransferase 22 U/L (ALT/SGPT) Alkaline Phosphatase 221 U/L Total Creatine Kinase 71 U/L Troponin I LESS THAN 0.02 NG/ML Total Protein 5.7 GM/DL Albumin 2.2 GM/DL [facility] Medical Decision Making Medical Screen Exam Complete: Yes Emergency Medical Condition: Yes Medical Record Reviewed: Yes Interpretation(s) CBC WBC 12.5, hemoglobin 9.1 CMP BUN 26 creatinine 1.38 glucose 268 calcium 8.1 Troponin, CK negative D-dimer negative EKG sinus rhythm, rate 90 Differential Diagnosis Cellulitis, dependent edema, diabetic foot ulcer, osteomyelitis, sepsis, panniculitis, Narrative Course IV established, basic lab work has been ordered, chest x-ray, the patient was placed on ECG monitoring and pulse oximetry. His wrist recent hospitalization record has been reviewed. Reassuringly he did have lower extremity bilateral Doppler ultrasound which was negative for DVT. He had a VQ scan which was low probably for PE. He does have some wheezing which could explain his dyspnea. Given his pleuritic chest pain, we will send a d-dimer although he does have a low wells score. His lab work is been reviewed. He does have mild renal insufficiency likely because he was recently on a seven-day course of Lasix. He will be given some IV fluids here. His lab is otherwise reassuring in comparison to his recent admission. His most recent wound culture grew out enterococcus and Staphylococcus aureus and based on sensitivity panel he will be discharged with prescriptions for penicillin and Bactrim. He does feel somewhat improved after the administration of nebulizer medication. I suspect that he may have some early COPD secondary to smoking. He'll be discharged with a prescription for nebulizer machine as well as albuterol solution. Procedures EKG Prior to Arrival: Yes Diagnosis Primary Impression: Bilateral lower leg cellulitis Additional Impressions: Diabetic ulcer of left fifth toe Wheezing Acute renal insufficiency Additional Instructions: Follow-up with your primary care physician in 3-4 days. Elevate the legs. Take the antibiotics as prescribed. Return for any new or worsening symptoms such as worsening redness, fevers, worsening pain Med/Other Pt SpecificInfo: Prescription(s) given, Wound Care Scripts Nebulizer Compressor/Dual 1 Kit Kit #1 KIT .ROUTE DIRECTED Ref 0 Prov:Helena Hanks MD 02/07/17 Albuterol Neb 2.5 Mg/3 Ml Neb2.5 Mg NEB Q4HR NEB PRN (SHORTNESS OF BREATH) #60 NEBULE Ref 0 Prov:Helena Hanks MD 02/07/17 Sulfamethoxazole-Trimethoprim (Bactrim DS)800-160 Mg Tab1 Tab PO BID #20 TAB Ref 0 Prov:Helena Hanks MD 02/07/17 Penicillin V Potassium 500 Mg [id number] Mg PO Q6H 10 Days Ref 0 Prov:Helena Hanks MD 02/07/17 Disposition: 01 DISCHARGE HOME Condition: Stable Kevyn Ellis Feb 07, 2017 11:56
[2017-02-07] MEDS ORDERED: RESP: ALBUTEROL 2.5 MG/IPRATROPIUM 0.5 MG NEB (SCH) INH ONE (12:00)
[2017-02-07 12:31] LABS: AUTOMATED NEUTROPHIL # 8.1 TH/MM3 (1.8-7.7); BASOPHIL # 0.2 TH/MM3 (0-0.2); BASOPHIL % 1.5 % (0.0-2.0); EOSINOPHIL # 0.2 TH/MM3 (0-0.4); EOSINOPHIL % 1.3 % (0.0-4.0); HEMATOCRIT 28.5 % (39.0-51.0); HEMO FLAGS DIFF FINAL; LYMPH % 25.1 % (9.0-44.0); LYMPHOCYTE # 3.1 TH/MM3 (1.0-4.8); MEAN CELL VOLUME 82.3 FL (80.0-100.0); MEAN CORPUSCULAR HEMOGLOBIN 26.3 PG (27.0-34.0); MONO % 7.2 % (0.0-8.0); NEUT % 64.9 % (16.0-70.0); PLATELET COUNT 417 TH/MM3 (150-450); RED BLOOD COUNT 3.46 MIL/MM3 (4.50-5.90); RED CELL DISTRIBUTION WIDTH 16.3 % (11.6-17.2); WHITE BLOOD COUNT 12.5 TH/MM3 (4.0-11.0)
[2017-02-07 12:44] LABS: ANION GAP 9 MEQ/L (5-15); AST (GOT) 13 U/L (15-37); BICARBONATE 25.5 MEQ/L (21.0-32.0); BLOOD UREA NITROGEN 26 MG/DL (7-18); CHLORIDE 102 MEQ/L (98-107); GLOMERULAR FILTRATION RATE 54 ML/MIN (>89); POTASSIUM 4.7 MEQ/L (3.5-5.1); SODIUM (NA) 136 MEQ/L (136-145)
[2017-02-07 12:49] LABS: ALKALINE PHOSPHATASE 221 U/L (45-117); ALT (GPT) 22 U/L (12-78); TOTAL BILIRUBIN ADULT LESS THAN 0.1 MG/DL (0.2-1.0)
[2017-02-07 12:51] LABS: CREATINE KINASE 71 U/L (39-308)
--- NOTE | 2017-02-07 13:11 | RADRPT ---
EXAM DATE/TIME: 02/07/2017 12:12 [facility] COMPARISON: CHEST SINGLE AP, January 23, 2017, 0:08. INDICATIONS : Shortness of breath. Pain in lungs. Swollen neck glands. MEDICAL HISTORY : None. SURGICAL HISTORY : None. ENCOUNTER: Initial ACUITY: 2 days PAIN SCORE: 9/10 LOCATION: Bilateral chest FINDINGS: Single AP view of the chest. Linear opacity at the left lung base indicating subsegmental atelectasis . Minimal blunting right costophrenic sulcus. Cardiomediastinal silhouette within normal limits. No e vidence of pneumothorax. CONCLUSION: Mild atelectasis at the left lung base. Possible small right pleural effusion. Asael Parks MD on February 07, 2017 at 13:04 Board Certified Radiologist. This report was verified electronically.
[2017-02-07] MEDS ORDERED: SODIUM CHLOR 0.9% 1000 ML INJ 1,000 ML IV SCH (13:21)
[2017-02-07] MEDS ORDERED: BACT800T5 PO (13:30)
[2017-02-07] MEDS ORDERED: NEBULIZER COMPR1 KIT (13:30)
[2017-02-07] MEDS ORDERED: ALBU0.08 NEB (13:30)
[2017-02-07] MEDS ORDERED: PENI500T PO (13:30)
--- NOTE | 2017-02-07 13:34 | PD ---
Data Data Last Documented VS Vital Signs Date Time Temp Pulse Resp B/P Pulse Ox O2 Delivery O2 Flow Rate FiO2 02/07/17 11:00 98.3 97 18 176/89 95 Orders Electrocardiogram (02/07/17 11:49) Complete Blood Count With Diff (02/07/17 11:49) Comprehensive Metabolic Panel (02/07/17 11:49) Magnesium (Mg) (02/07/17 11:49) Ckmb (Isoenzyme) Profile (02/07/17 11:49) Troponin I (02/07/17 11:49) Chest, Single Ap (02/07/17 11:49) D-Dimer (02/07/17 11:49) Albuterol-Ipratropium Neb (Duoneb Neb) (02/07/17 12:00) Sodium Chlor 0.9% 1000 Ml Inj (Ns 1000 M (02/07/17 13:21) Labs Laboratory Tests Test 02/07/17 12:15 White Blood Count 12.5 TH/MM3 Red Blood Count 3.46 MIL/MM3 Hemoglobin 9.1 GM/DL Hematocrit 28.5 % Mean Corpuscular Volume 82.3 FL Mean Corpuscular Hemoglobin 26.3 PG Mean Corpuscular Hemoglobin 32.0 % Concent Red Cell Distribution Width 16.3 % Platelet Count 417 TH/MM3 Mean Platelet Volume 7.5 FL Neutrophils (%) (Auto) 64.9 % Lymphocytes (%) (Auto) 25.1 % Monocytes (%) (Auto) 7.2 % Eosinophils (%) (Auto) 1.3 % Basophils (%) (Auto) 1.5 % Neutrophils # (Auto) 8.1 TH/MM3 Lymphocytes # (Auto) 3.1 TH/MM3 Monocytes # (Auto) 0.9 TH/MM3 Eosinophils # (Auto) 0.2 TH/MM3 Basophils # (Auto) 0.2 TH/MM3 CBC Comment DIFF FINAL Differential Comment D-Dimer Quantitative (PE/DVT) 0.44 MG/L FEU Sodium Level 136 MEQ/L Potassium Level 4.7 MEQ/L Chloride Level 102 MEQ/L Carbon Dioxide Level 25.5 MEQ/L Anion Gap 9 MEQ/L Blood Urea Nitrogen 26 MG/DL Creatinine 1.38 MG/DL Estimat Glomerular Filtration 54 ML/MIN Rate Random Glucose 268 MG/DL Calcium Level 8.1 MG/DL Magnesium Level 2.0 MG/DL Total Bilirubin LESS THAN 0.1 MG/DL Aspartate Amino Transf 13 U/L (AST/SGOT) Alanine Aminotransferase 22 U/L (ALT/SGPT) Alkaline Phosphatase 221 U/L Total Creatine Kinase 71 U/L Troponin I LESS THAN 0.02 NG/ML Total Protein 5.7 GM/DL Albumin 2.2 GM/DL MDM Supervised Visit with JOSTIN: Yes Differential Diagnosis I, Dr. Hanks, have reviewed the advance practice practioner's documentation and am in agreement, met with the patient face to face, made the diagnosis, and the medical decision making was done by me. *My assessment and Findings: 51-year-old male with history of multiple past medical history diabetes, neuropathy and peripheral vascular disease here with lower extremity swelling increasing since his most recent hospital discharge for lower shortly cellulitis and diabetic ulcer. Discharged home on doxycycline , Lasix and Macrobid. Patient has been compliant with this but notes slight worsening. On exam his left lower extremity is really not all that swollen after having been in a compression stocking, the right leg is slightly swollen. There is mild erythema and warmth on both sides. He has a chronic wound on the left fifth toe unchanged. Patient also did report slightly pleuritic type chest pain with increasing wheezing. On his most recent hospital stay he had duplex ultrasounds of the bilateral lower extremities and negative VQ scan and my suspicion for PE is low. A twelve-lead EKG, chest x-ray and laboratory workup were really fairly unremarkable other than slight increase in his BUN and creatinine likely due to was discharging him home on diuretic from his most recent hospital discharge. His sensitivities and specificities were reviewed and patient will be discharged home with Bactrim and penicillin to cover enterococcus. Encouraged to follow up with his primary care physician. Scripts Nebulizer Compressor/Dual 1 Kit Kit #1 KIT .ROUTE DIRECTED Ref 0 Prov:Helena Hanks MD 02/07/17 Albuterol Neb 2.5 Mg/3 Ml Neb2.5 Mg NEB Q4HR NEB PRN (SHORTNESS OF BREATH) #60 NEBULE Ref 0 Prov:Helena Hanks MD 02/07/17 Sulfamethoxazole-Trimethoprim (Bactrim DS)800-160 Mg Tab1 Tab PO BID #20 TAB Ref 0 Prov:Helena Hanks MD 02/07/17 Penicillin V Potassium 500 Mg [id number] Mg PO Q6H 10 Days Ref 0 Prov:Helena Hanks MD 02/07/17 Helena Hanks MD Feb 07, 2017 13:34
[2017-02-07] MEDS ORDERED: VANCOMYCIN INJ 1,000 MG in SODIUM CHLOR 0.9% 250 ML INJ 250 ML IV ONE (13:45)
[2017-02-07] MEDS ORDERED: VANCOMYCIN 1,000 MG/NS 250 ML IV ONE ×2 (16:00)
--- NOTE | 2017-02-07 22:34 | EKG ---
Date Performed: 02/07/2017 Time Performed: 13:17:36 PTAGE: 51 years EKG: Sinus rhythm NORMAL ECG PREVIOUS TRACING : 01/04/2016 23.50 Compared to prior tracing no significant change DOCTOR: Garrick Mckeon Interpretating Date/Time 02/07/2017 22:33:00
== END 2017-02-07 19:15 | disposition home or self-care (01) ==
LOC: NEPB 09:53
DX: L03.116 Cellulitis of left lower limb (principal); L03.115 Cellulitis of right lower limb; E11.621 Type 2 diabetes mellitus with foot ulcer; L97.529 Non-pressure chronic ulcer of other part of left foot with unspecified severity; N28.9 Disorder of kidney and ureter, unspecified; Z79.4 Long term (current) use of insulin
CPT/HCPCS: 71010; 80053; 82550; 83735; 84484; 85025; 85379; 93005; 94664; 96361; 96365; 99284; J3370; J7030; J7050

== ENCOUNTER 2017-08-03 16:04 | Inpatient (IN) | payer OTHER, MEDICAID, MEDICARE ==
[~2017-08-03] VITALS: Ht 181.6 cm; Wt 82.0 kg
[~2017-08-03 16:04] MED LIST changes: +ALBU0.08 NEB; +BACT800T5 PO; -DOXY1CAP91 PO; -FURO20TA PO; -MACR100C2 PO; +PENI500T PO; -POTA-243 PO
[2017-08-03 16:09] VITALS: BP 126/68; PULSE 110; RESP 15; TEMP 97.4; O2SAT 99
--- NOTE | 2017-08-03 16:27 | PD ---
Physical Exam Date Seen by Provider: Aug 03, 2017 Time Seen by Provider: 16:25 Narrative 52-year-old type II diabetic on insulin presents to our department via ambulance , with complaints of sudden onset foot pain after standing. Patient heard an audible crunch. Patient has a history of nonhealing wound in the left foot for approximately 3 months which has been attended to by wound care clinic. Dr. Lorenzo Hernandez is his primary. Patient does not have a scaffolder. He is here for evaluation of the ongoing left foot wound and sudden onset pain and "crunch" today. He denies fever. Patient is a smoker. Patient has a history of MRSA. Patient is taken directly to a medical bed after triage. Data Data Last Documented VS Vital Signs Date Time Temp Pulse Resp B/P (MAP) Pulse Ox O2 Delivery O2 Flow Rate FiO2 08/03/17 16:09 97.4 110 15 126/68 (87) 99 MDM Medical Record Reviewed: Yes Supervised Visit with JOSTIN: Yes Condition: Stable Joe Boss Aug 03, 2017 16:27
[2017-08-03] MEDS ORDERED: SODIUM CHLOR 0.9% 1000 ML INJ 1,000 ML IV SCH ×2 (17:03→19:01)
--- NOTE | 2017-08-03 17:09 | PD ---
HPI Chief Complaint: Pain: Acute or Chronic Time Seen by Provider: 16:55 Travel History International Travel<30 days: No Contact w/Intl Traveler<30days: No Traveled to known affect area: No History of Present Illness HPI This is a 52-year-old male with history of diabetes, peripheral neuropathy, hypertension, hyperlipidemia, peripheral vascular disease, GERD who presents for evaluation of left foot ulceration, pain. The patient has had a ulceration on the left heel for the past 4 months, managed by Jayden Serrano wound care [facility], as well as his primary care physician Dr. Hernandez. He reports that he was recently on an unknown antibiotic, finished a few days ago. He reports over the past few weeks the ulceration is grown larger. He reports that he spoke to Mr. Serrano as well as his home health wound care nurse who also communicated with his primary care physician who both advised that he come to the emergency room for admission, surgical debridement of his ulceration. He also reports worsening pain in his left foot today after he attempted to stand on his foot. He reports that he felt a "crunch" in his left foot. Pain is an aching pain is worse when standing. He denies any fevers or chills. He notes a pressure ulcer on his sacrum for the past month as well. He is somewhat of a poor historian. He has no other complaints at this time. PFSH Past Medical History Hx Anticoagulant Therapy: Yes Arthritis: Yes Asthma: No Autoimmune Disease: No Blood Disorders: No Anxiety: No Depression: No Heart Rhythm Problems: No Cancer: Yes (Squamous cell/basal skin cancer) Cardiovascular Problems: Yes High Cholesterol: Yes Chemotherapy: No Chest Pain: No Congestive Heart Failure: No COPD: Yes Cerebrovascular Accident: No Diabetes: Yes Patient Takes Glucophage: No Diminished Hearing: No Endocrine: Yes Gastrointestinal Disorders: Yes (GERD) GERD: Yes Glaucoma: No Genitourinary: No Hepatitis: No Hiatal Hernia: Yes Herniated Disk: Yes (CERVICAL AND LUMBAR) Hypertension: Yes Immune Disorder: No Kidney Stones: No Musculoskeletal: No Neurologic: Yes (Neuropathy) Psychiatric: No Reproductive: No Respiratory: Yes Integumentary: Yes (multiple wounds with debriedment) Immunizations Current: Yes Migraines: No Radiation Therapy: No Renal Failure: No Seizures: No Sleep Apnea: No Thyroid Disease: No Ulcer: No Past Surgical History Abdominal Surgery: No AICD: Yes Arteriovenous Shunt: No Cardiac Surgery: No Ear Surgery: No Endocrine Surgery: No Eye Surgery: No Genitourinary Surgery: No Gynecologic Surgery: No Insulin Pump: No Joint Replacement: No Oral Surgery: Yes (teeth removed) Pacemaker: No Thoracic Surgery: No Other Surgery: Yes (Blood clot removal right arm, Left leg wound debridement, d &c right thigh, ) Social History Alcohol Use: No Tobacco Use: Yes (11/14 ppd) Substance Use: No Allergies-Medications (Allergen,Severity, Reaction): Coded Allergies: *MDRO Multi-Drug Resistant Organism (Verified Adverse Reaction, Unknown, ) MRSA (arm wound) - 01/2016 MRSA (blood, urine, wound) - 06/2013 Reported Meds & Prescriptions Reported Meds & Active Scripts Active Reported Gabapentin 600 Mg Tab 600 Mg PO QID Levemir Inj (Insulin Detemir) 1,000 unit/ 10 ML Vial 60 Units SQ BID Do not mix with any other Insulin. Clopidogrel (Clopidogrel Bisulfate) 75 Mg Tab 75 Mg PO DAILY@1600 Hydrocodone-Acetaminophen 10-325 mg Tab 1 Tab PO Q4H PRN Pantoprazole (Pantoprazole Sodium) 40 Mg Tab 40 Mg PO DAILY@1600 Review of Systems ROS Limitations: Poor Historian Except as stated in HPI: all other systems reviewed are Neg Physical Exam Exam Limitations: Poor Historian Narrative GENERAL: Chronically ill-appearing male who is in no acute distress. SKIN: Warm and dry. Examination of the left heel reveals a full-thickness large ulceration with eschar formation. Examination of the sacrum reveals a stage II pressure ulcer. HEAD: Atraumatic. Normocephalic. EYES: Pupils equal and round. No scleral icterus. No injection or drainage. ENT: No nasal bleeding or discharge. Mucous membranes pink and moist. NECK: Trachea midline. No JVD. CARDIOVASCULAR: Regular rate and rhythm. No murmur appreciated. RESPIRATORY: No accessory muscle use. Clear to auscultation. Breath sounds equal bilaterally. GASTROINTESTINAL: Abdomen soft, non-tender, nondistended. Hepatic and splenic margins not palpable. MUSCULOSKELETAL: Skin as noted above with associated tenderness to palpation of the left foot. The dorsalis pedis pulses dopplerable. The patient also has left leg unilateral 1-2+ pitting edema in the left calf. NEUROLOGICAL: Awake and alert. No obvious cranial nerve deficits. Motor grossly within normal limits. Normal speech. PSYCHIATRIC: Appropriate mood and affect; insight and judgment normal. Data Data Last Documented VS Vital Signs Date Time Temp Pulse Resp B/P (MAP) Pulse Ox O2 Delivery O2 Flow Rate FiO2 08/03/17 16:09 97.4 110 15 126/68 (87) 99 Orders Orders Complete Blood Count With Diff (08/03/17 17:03) Comprehensive Metabolic Panel (08/03/17 17:03) Prothrombin Time / Inr (Pt) (08/03/17 17:03) Act Partial Throm Time (Ptt) (08/03/17 17:03) Lactic Acid Sepsis Protocol (08/03/17 17:03) Magnesium (Mg) (08/03/17 17:03) Blood Culture (08/03/17 17:03) Ecg Monitoring (08/03/17 17:03) Iv Access Insert/Monitor (08/03/17 17:03) Oximetry (08/03/17 17:03) Oxygen Administration (08/03/17 17:03) Sodium Chlor 0.9% 1000 Ml Inj (Ns 1000 M (08/03/17 17:03) Westergren Sedimentation Rate (08/03/17 17:03) C-Reactive Protein (Crp) (08/03/17 17:03) Foot, Complete ([id number]) (08/03/17 ) Vancomycin Inj (Vancomycin Inj) (08/03/17 17:15) Piperacil-Tazo 3.375 Gm Premix (Zosyn 3. (08/03/17 17:15) Mri Foot W&W/O Contrast (08/03/17 ) Us Leg Venous Doppler (08/03/17 17:05) Wound Culture And Gram Stain (08/03/17 17:14) Wound Care (08/03/17 18:47) Insulin Human Regular Inj (Novolin R Inj (08/03/17 19:00) Sodium Polysty Sulfate Liq (Kayexalate L (08/03/17 19:00) Sodium Chlor 0.9% 1000 Ml Inj (Ns 1000 M (08/03/17 19:01) Admit Order (Ed Use Only) (08/03/17 19:28) Labs Laboratory Tests Test 08/03/17 17:37 White Blood Count 25.4 TH/MM3 Red Blood Count 4.17 MIL/MM3 Hemoglobin 9.6 GM/DL Hematocrit 30.6 % Mean Corpuscular Volume 73.3 FL Mean Corpuscular Hemoglobin 23.1 PG Mean Corpuscular Hemoglobin Concent 31.5 % Red Cell Distribution Width 19.4 % Platelet Count 554 TH/MM3 Mean Platelet Volume 7.9 FL Neutrophils (%) (Auto) 83.9 % Lymphocytes (%) (Auto) 8.7 % Monocytes (%) (Auto) 5.1 % Eosinophils (%) (Auto) 1.0 % Basophils (%) (Auto) 1.3 % Neutrophils # (Auto) 21.3 TH/MM3 Lymphocytes # (Auto) 2.2 TH/MM3 Monocytes # (Auto) 1.3 TH/MM3 Eosinophils # (Auto) 0.2 TH/MM3 Basophils # (Auto) 0.3 TH/MM3 CBC Comment DIFF FINAL Differential Comment Erythrocyte Sedimentation Rate 24 mm/hr Prothrombin Time 13.5 SEC Prothromb Time International Ratio 1.2 RATIO Activated Partial Thromboplast Time 25.6 SEC Blood Urea Nitrogen 17 MG/DL Creatinine 1.03 MG/DL Random Glucose 302 MG/DL Total Protein 6.7 GM/DL Albumin 2.2 GM/DL Calcium Level 8.7 MG/DL Magnesium Level 1.9 MG/DL Alkaline Phosphatase 179 U/L Aspartate Amino Transf (AST/SGOT) 24 U/L Alanine Aminotransferase (ALT/SGPT) 18 U/L Total Bilirubin 0.5 MG/DL Sodium Level 134 MEQ/L Potassium Level 5.5 MEQ/L Chloride Level 102 MEQ/L Carbon Dioxide Level 25.9 MEQ/L Anion Gap 6 MEQ/L Estimat Glomerular Filtration Rate 76 ML/MIN Lactic Acid Level 1.3 mmol/L C-Reactive Protein 9.20 MG/DL [facility] Medical Decision Making Medical Screen Exam Complete: Yes Emergency Medical Condition: Yes Medical Record Reviewed: Yes Differential Diagnosis Osteomyelitis, sepsis, diabetic foot ulcer, pressure ulcer, cellulitis Narrative Course The patient was placed on ECG monitoring pulse oximetry. He was given broad- spectrum antibiotics, IV fluids. Plan is for basic lab work, x-ray of the left foot, MRI of the left foot with an without contrast to assess for evidence of osteomyelitis, ultrasound left leg given the unilateral leg swelling to evaluate for evidence of DVT. WBC count 25.4, ESR 24, potassium 5.5, glucose 302, CRP 9.2, x-ray reveals erosive changes along the posterior calcaneus with possible avulsion injury. The patient is being given IV fluids, insulin as well as Kayexalate. At this point, plan is to admit the patient for sepsis, diabetic heel ulcer, likely osteomyelitis of the heel but the MRI is currently pending. Diagnosis Primary Impression: Diabetic ulcer of heel Qualified Codes: E13.621 - Other specified diabetes mellitus with foot ulcer; L97.429 - Non-pressure chronic ulcer of left heel and midfoot with unspecified severity Additional Impression: Sepsis Qualified Codes: A41.9 - Sepsis, unspecified organism Admitting Information Admitting Physician Requests: Admit Condition: Stable Kevyn Ellis Aug 03, 2017 17:09
[2017-08-03] MEDS ORDERED: VANCOMYCIN INJ 1,000 MG in SODIUM CHLOR 0.9% 250 ML INJ 250 ML IV ONE (17:15)
[2017-08-03] MEDS ORDERED: PIPERACIL-TAZO 3.375 GM PREMIX 50 ML IV ONE (17:15)
--- NOTE | 2017-08-03 17:42 | RADRPT ---
EXAM DATE/TIME: 08/03/2017 17:19 [facility] COMPARISON: No previous studies available for comparison. INDICATIONS : Left heel infection. MEDICAL HISTORY : Hypertension. Diabetes mellitus type II. SURGICAL HISTORY : I&D for removal of infection. ENCOUNTER: Initial ACUITY: 4 - 6 months PAIN SCORE: 7/10 LOCATION: Left foot. FINDINGS: Compare January 23. There are some erosive changes along the posterior aspect of the calcaneus with keith e ossifications superiorly that could indicate an avulsion injury or remote trauma. Soft tissue ulcer ation noted. Remainder of left foot stable in appearance. Bony defect proximal phalanx fifth toe is s table. CONCLUSION: 1. Erosive changes along the posterior calcaneus with possible avulsion injury superiorly. MRI pendin g to assess for infection and trauma. Gustavo Hicks MD on August 03, 2017 at 17:38 Board Certified Radiologist. This report was verified electronically.
--- NOTE | 2017-08-03 18:22 | RADRPT ---
EXAM DATE/TIME: 08/03/2017 17:39 [facility] COMPARISON: US LEG LEFT VENOUS DOPPLER, January 29, 2014, 20:55. INDICATIONS : Edema. MEDICAL HISTORY : Hypercholesterolemia. Gastroesophageal reflux disease. Hypertension. Neuropathy. Hiatal hernia. Arthr itis. Herniated disks. Diabetes. Skin cancer. MRSA. Legally blind. SURGICAL HISTORY : Internal defibrillator. Wound debridement. Blood clot removal right arm. ENCOUNTER: Subsequent ACUITY: 2 day PAIN SCORE: 10/10 LOCATION: Left leg. TECHNIQUE: Venous ultrasound of the leg was performed from the inguinal ligament to the proximal calf. Real-gavin e, color Doppler and spectral tracing, compression and augmentation techniques were used. FINDINGS: There is normal compressibility of the deep venous system from the inguinal region to the proximal ca lf. No echogenic clot is seen in the lumen of the common femoral, femoral, popliteal, and posterior tibial veins. There is a normal response of the venous system to proximal and distal augmentation an d respiration. There are left inguinal lymph nodes that measure up to 1.7 cm in greatest short axis dimension. Simil ar findings were seen previously. CONCLUSION: No DVT of the left lower extremity. Jose Francisco Rodriguez MD on August 03, 2017 at 18:20 Board Certified Radiologist. This report was verified electronically.
[2017-08-03 18:23] LABS: AUTOMATED NEUTROPHIL # 21.3 TH/MM3 (1.8-7.7); BASOPHIL # 0.3 TH/MM3 (0-0.2); BASOPHIL % 1.3 % (0.0-2.0); EOSINOPHIL # 0.2 TH/MM3 (0-0.4); HEMATOCRIT 30.6 % (39.0-51.0); HEMO FLAGS DIFF FINAL; LYMPH % 8.7 % (9.0-44.0); LYMPHOCYTE # 2.2 TH/MM3 (1.0-4.8); MEAN CELL VOLUME 73.3 FL (80.0-100.0); MEAN CORPUSCULAR HEMOGLOBIN 23.1 PG (27.0-34.0); MEAN CORPUSCULAR HGB CONC 31.5 % (32.0-36.0); MONO % 5.1 % (0.0-8.0); NEUT % 83.9 % (16.0-70.0); PLATELET COUNT 554 TH/MM3 (150-450); RED BLOOD COUNT 4.17 MIL/MM3 (4.50-5.90); RED CELL DISTRIBUTION WIDTH 19.4 % (11.6-17.2); WHITE BLOOD COUNT 25.4 TH/MM3 (4.0-11.0)
[2017-08-03 18:32] LABS: APTT (PATIENT) 25.6 SEC (24.3-30.1); INTERNATIONAL NORMALIZED RATIO 1.2 RATIO; PROTHROMBIN TIME - PATIENT 13.5 SEC (9.8-11.6)
[2017-08-03 18:36] LABS: ALT (GPT) 18 U/L (12-78)
[2017-08-03 18:38] LABS: ALKALINE PHOSPHATASE 179 U/L (45-117); TOTAL BILIRUBIN ADULT 0.5 MG/DL (0.2-1.0)
[2017-08-03 18:46] LABS: ANION GAP 6 MEQ/L (5-15); AST (GOT) 24 U/L (15-37); BICARBONATE 25.9 MEQ/L (21.0-32.0); BLOOD UREA NITROGEN 17 MG/DL (7-18); CHLORIDE 102 MEQ/L (98-107); GLOMERULAR FILTRATION RATE 76 ML/MIN (>89); MAGNESIUM 1.9 MG/DL (1.5-2.5); POTASSIUM 5.5 MEQ/L (3.5-5.1); SODIUM (NA) 134 MEQ/L (136-145)
[2017-08-03] MEDS ORDERED: INSULIN HUMAN REGULAR 1,000 UNITS/10 ML VIAL IV PUSH ONE (19:00)
[2017-08-03] MEDS ORDERED: SODIUM POLYSTYRENE SULFONATE SUSP 15 GM/60 ML CUP PO ONE (19:00)
[2017-08-03] MEDS ORDERED: DEXTROSE 50% IN WATER 50 ML SYRINGE IV PUSH PRN (19:30)
[2017-08-03] MEDS ORDERED: Vancomycin Consult Pharmacy 1 EA OTHER SCH (19:30)
[2017-08-03] MEDS ORDERED: LACTULOSE SYRUP 20 GM/30 ML CUP PO PRN (19:30)
[2017-08-03] MEDS ORDERED: ONDANSETRON HCL 4 MG/2 ML VIAL IVP PRN (19:30)
[2017-08-03] MEDS ORDERED: GLUCAGON 1 MG/ML VIAL OTHER PRN (19:30)
[2017-08-03] MEDS ORDERED: SENNOSIDES 8.6 MG TAB PO PRN (19:30)
[2017-08-03] MEDS ORDERED: ACETAMINOPHEN 325 MG TAB PO PRN (19:30)
[2017-08-03] MEDS ORDERED: BISACODYL 10 MG SUPP RECTAL PRN (19:30)
--- NOTE | 2017-08-03 19:33 | HHI.HP ---
HPI Service [facility] Primary Care Physician Rey Hernandez MD Admission Diagnosis diabetic heel ulcer, sepsis Diagnoses: (1) Sepsis Diagnosis: Principal (2) Osteomyelitis Diagnosis: Principal (3) Hyperkalemia Diagnosis: Principal (4) HTN (hypertension) Diagnosis: Principal (5) DM (diabetes mellitus) Diagnosis: Principal Travel History International Travel<30 Days: No Contact w/Intl Traveler <30 Da: No Traveled to Known Affected Are: No History of Present Illness This is a 52-year-old male with a PMH of HTN, DM, Peripheral Neuropathy, PVD and Chronic Left Foot Ulcer who was referred to the ER by PCP, Dr. Hernandez, for admission and further evaluation of left heel ulcer. Patient with chronic ulcer for the last 4 months, currently under Wound Care, states he recently completed antibiotics for left heel infection, was seen by PCP today and instructed to come to ER. Per pt, progressive pain to left heel especially w/ ambulation, today felt a 'crunch" followed by intense pain. On arrival, BP 126/ 68, HR 110, O2 sat 99% on RA, Afebrile. WBC 25.4. K+ 5.5. Lactic Acid 1.3. INR 1.2. LE Doppler negative for DVT. Foot X-ray w/ erosive changes along posterior calcaneus with possible avulsion injury. MRI Foot with large soft tissue ulcer of the heel with broad area of osteomyelitis of the posterior calcaneus, Achilles tendon ruptured at its insertion. S/p Vanc/Zosyn in ER Review of Systems Except as stated in HPI: all other systems reviewed are Neg ROS: 14 point review of systems otherwise negative. Past Family Social History Past Medical History PMH: HTN, DM, Peripheral Neuropathy, PVD and Chronic Left Foot Ulcer Past Surgical History PAST SURGICAL HISTORY: Dental Extraction, LLE Debridement Allergies: Coded Allergies: *MDRO Multi-Drug Resistant Organism (Verified Adverse Reaction, Unknown, ) MRSA (arm wound) - 01/2016 MRSA (blood, urine, wound) - 06/2013 Family History PAST FAMILY HISTORY: Reviewed. No h/o DM or CAD Social History PAST SOCIAL HISTORY: Negative for alcohol or drugs. Smokes 1/2ppd. Physical Exam Vital Signs Vital Signs Date Time Temp Pulse Resp B/P (MAP) Pulse Ox O2 Delivery O2 Flow Rate FiO2 08/03/17 16:09 97.4 110 15 126/68 (87) 99 Physical Exam PE: GENERAL: Middle-aged male in no acute distress. HEENT: PERRLA, EOMI. No scleral icterus or conjunctival pallor. No lid lag or facial droop. CARDIOVASCULAR: Regular rate and rhythm. No obvious murmurs to auscultation. No chest tenderness to palpation. RESPIRATORY: No obvious rhonchi or wheezing. Clear to auscultation. Breath sounds equal bilaterally. GASTROINTESTINAL: Abdomen soft, non-tender, nondistended. BS normal. MUSCULOSKELETAL: Extremities without clubbing, cyanosis, or edema. No obvious deformities. Extensive LLE heel ulcer, surrounding erythema/edema. NEUROLOGICAL: Awake, alert and oriented x4. No focal neurologic deficits. Moving both upper and lower extremities spontaneously. Laboratory Laboratory Tests Test 08/03/17 17:37 White Blood Count 25.4 Red Blood Count 4.17 Hemoglobin 9.6 Hematocrit 30.6 Mean Corpuscular Volume 73.3 Mean Corpuscular Hemoglobin 23.1 Mean Corpuscular Hemoglobin Concent 31.5 Red Cell Distribution Width 19.4 Platelet Count 554 Mean Platelet Volume 7.9 Neutrophils (%) (Auto) 83.9 Lymphocytes (%) (Auto) 8.7 Monocytes (%) (Auto) 5.1 Eosinophils (%) (Auto) 1.0 Basophils (%) (Auto) 1.3 Neutrophils # (Auto) 21.3 Lymphocytes # (Auto) 2.2 Monocytes # (Auto) 1.3 Eosinophils # (Auto) 0.2 Basophils # (Auto) 0.3 CBC Comment DIFF FINAL Differential Comment Erythrocyte Sedimentation Rate 24 Prothrombin Time 13.5 Prothromb Time International Ratio 1.2 Activated Partial Thromboplast Time 25.6 Blood Urea Nitrogen 17 Creatinine 1.03 Random Glucose 302 Total Protein 6.7 Albumin 2.2 Calcium Level 8.7 Magnesium Level 1.9 Alkaline Phosphatase 179 Aspartate Amino Transf (AST/SGOT) 24 Alanine Aminotransferase (ALT/SGPT) 18 Total Bilirubin 0.5 Sodium Level 134 Potassium Level 5.5 Chloride Level 102 Carbon Dioxide Level 25.9 Anion Gap 6 Estimat Glomerular Filtration Rate 76 Lactic Acid Level 1.3 C-Reactive Protein 9.20 Date/Time Source Procedure Growth Status 08/03/17 17:43 Blood Peripheral Aerobic Blood Culture Pending Received 08/03/17 17:43 Blood Peripheral Anaerobic Blood Culture Pending Received 08/03/17 17:42 Wound Foot Gram Stain Pending Received 08/03/17 17:42 Wound Foot Wound Culture Pending Received Result Diagram: 08/03/17 1737 08/03/17 1737 Caprini VTE Risk Assessment Caprini VTE Risk Assessment: Mod/High Risk (score >= 2) Caprini Risk Assessment Model Point Value = 1 Point Value = 2 Point Value = 3 Point Value = 5 Age 41-60 Minor surgery BMI > 25 kg/m2 Swollen legs Varicose veins or History of unexplained or recurrent spontaneous Oral contraceptives or hormone replacement Sepsis (< 1 month) Serious lung disease, including pneumonia (< 1 month) Abnormal pulmonary function Acute myocardial infarction Congestive heart failure (< 1 month) History of inflammatory bowel disease Medical patient at bed rest Age 61-74 Arthroscopic surgery Major open surgery (> 45 min) Laparoscopic surgery (> 45 min) Malignancy Confined to bed (> 72 hours) Immobilizing plaster cast Central venous access Age >= 75 History of VTE Family history of VTE Factor V Leiden Prothrombin [id number] Lupus anticoagulant Anticardiolipin antibodies Elevated serum homocysteine Heparin-induced thrombocytopenia Other congenital or acquired thrombophilia Stroke (< 1 month) Elective arthroplasty Hip, pelvis, or leg fracture Acute spinal cord injury (< 1 month) Prophylaxis Regimen Total Risk Factor Score Risk Level Prophylaxis Regimen 0-1 Low Early ambulation 2 Moderate Order ONE of the following: *Sequential Compression Device (SCD) *Heparin 5000 units SQ BID 3-4 Higher Order ONE of the following medications: *Heparin 5000 units SQ TID *Enoxaparin/Lovenox 40 mg SQ daily (WT < 150 kg, CrCl > 30 mL/min) *Enoxaparin/Lovenox 30 mg SQ daily (WT < 150 kg, CrCl > 10-29 mL/min) *Enoxaparin/Lovenox 30 mg SQ BID (WT < 150 kg, CrCl > 30 mL/min) AND/OR *Sequential Compression Device (SCD) 5 or more Highest Order ONE of the following medications: *Heparin 5000 units SQ TID (Preferred with Epidurals) *Enoxaparin/Lovenox 40 mg SQ daily (WT < 150 kg, CrCl > 30 mL/min) *Enoxaparin/Lovenox 30 mg SQ daily (WT < 150 kg, CrCl > 10-29 mL/min) *Enoxaparin/Lovenox 30 mg SQ BID (WT < 150 kg, CrCl > 30 mL/min) AND *Sequential Compression Device (SCD) Assessment and Plan Problem List: (1) Sepsis ICD Code: A41.9 - Sepsis, unspecified organism Status: Acute (2) Osteomyelitis ICD Code: M86.9 - Osteomyelitis, unspecified (3) Hyperkalemia ICD Code: E87.5 - Hyperkalemia (4) HTN (hypertension) ICD Code: I10 - Essential (primary) hypertension (5) DM (diabetes mellitus) ICD Code: E11.9 - Type 2 diabetes mellitus without complications Assessment and Plan A/P: 1. Sepsis: HR 110, WBC 25.4, Source-Left Heel Ulcer. S/p Blood Cultures, Vanc /Zosyn in ER. Folow up cultures, continue IV Abx. 2. Osteomyelitis: Left Foot. X-ray w/ erosive changes along posterior calcaneus with possible avulsion injury, MRI Foot with large soft tissue ulcer heal and broad area of osteomyelitis of posterior calcaneus with rupture of Achilles tendon, images reviewed by me. S/p IV Abx as above, will continue. Consult Podiatry and ID. 3. Hyperkalemia: Mild. K+ 5.5. S/p Insulin/D50 in ER, will repeat in am. 4. HTN: BP 150-160's, likely compounded by pain, optimize pain control, monitor BP. 5. DM: Sliding scale w/ Accu-Cheks. Resume home Insulin 6. DVT Prophylaxis: Heparin sq 7. Social work for d/c planning as needed 8. Case discussed w/ ER physician at length. Physician Certification 2 Midnight Certification Type: Admission for Inpatient Services Order for Inpatient Services The services are ordered in accordance with Medicare regulations or non- Medicare payer requirements, as applicable. In the case of services not specified as inpatient-only, they are appropriately provided as inpatient services in accordance with the 2-midnight benchmark. Estimated LOS (days): 2 days is the estimated time the patient will need to remain in the hospital, assuming treatment plan goals are met and no additional complications. Post-Hospital Plan: Not yet determined Problem Qualifiers (1) Sepsis: Qualified Codes: A41.9 - Sepsis, unspecified organism Loretta Loco MD Aug 03, 2017 19:33
[2017-08-03] MEDS ORDERED: GADODIAMIDE PF 287 MG/ML 20 ML VIAL (for RAD MRI) IVCONTRAST ONE (19:50)
--- NOTE | 2017-08-03 20:13 | RADRPT ---
EXAM DATE/TIME: 08/03/2017 19:20 [facility] COMPARISON: No previous studies available for comparison. INDICATIONS : Osteomyelitis. Left heel wound. CONTRAST: 18 cc Omniscan (gadodiamide) IV MEDICAL HISTORY : Diabetes mellitus type 2. Hypertension. Carcinoma, basal cell. COPD. SURGICAL HISTORY : Multiple wound debridements. ENCOUNTER: Subsequent ACUITY: 4-6 days PAIN SCORE: 2/10 LOCATION: Left heel. TECHNIQUE: Multiplanar, multisequence MRI examination was performed without contrast and after the intravenous a dministration of gadolinium. FINDINGS: Large and deep heel ulcer present and extends down to the posterior margin of the calcaneus. There is marrow edema and abnormal T1 signal and abnormal enhancement in the posterior calcaneus compatible w ith osteomyelitis. The area of involvement is estimated at 1.8 x 2.9 x 4.1 cm. And the Achilles tendo n is ruptured at its insertion and retracted roughly 3.1 cm. The plantar fascia is intact. No abscess demonstrated. No other areas of osteomyelitis are seen. CONCLUSION: Large soft tissue ulcer of the heel and with a broad area of osteomyelitis of the posterior calcaneus . The Achilles tendon is ruptured at its insertion. No drainable abscess. Jose Francisco Rodriguez MD on August 03, 2017 at 20:09 Board Certified Radiologist. This report was verified electronically.
[2017-08-03 20:56] VITALS: BP 167/70
[2017-08-03] MEDS ORDERED: VANCOMYCIN INJ 2,300 MG in SODIUM CHLORID 0.9% 500 ML INJ 500 ML IV ONE (21:00)
[2017-08-03] MEDS: SODIUM CHLORIDE 0.9% FLUSH 10 ML FLUSH IV FLUSH SCH (21:00)
[2017-08-03] MEDS: DOCUSATE SODIUM 50 MG/SENNA 8.6 MG TAB PO SCH (21:00)
[2017-08-03] MEDS: MORPHINE SULFATE 4 MG/ML INJ IV PUSH PRN (21:08)
[2017-08-03 21:50] VITALS: BP 156/73; PULSE 127; RESP 18; TEMP 98.8; O2SAT 95
[2017-08-03] MEDS: INSULIN DETEMIR 100 UNITS/ML VIAL SQ SCH (23:26)
[2017-08-03] MEDS: INSULIN ASPART SUPPLEMENTAL SCALE SQ SCH (23:27)
[2017-08-04] MEDS: GABAPENTIN 300 MG CAP PO SCH ×5 (00:07→21:02)
[2017-08-04] MEDS: SODIUM CHLORIDE 0.9% FLUSH 10 ML FLUSH IV FLUSH PRN ×2 (00:09→02:54)
[2017-08-04] MEDS: MORPHINE SULFATE 4 MG/ML INJ IV PUSH PRN ×5 (00:09→21:02)
[2017-08-04] MEDS: SODIUM CHLOR 0.9% 1000 ML INJ 1,000 ML IV SCH ×2 (00:09→15:56)
[2017-08-04 04:00] VITALS: BP 139/63; PULSE 109; RESP 18; TEMP 97; O2SAT 90
[2017-08-04 06:53] LABS: AUTOMATED NEUTROPHIL # 19.7 TH/MM3 (1.8-7.7); BASOPHIL # 0.3 TH/MM3 (0-0.2); BASOPHIL % 1.2 % (0.0-2.0); EOSINOPHIL # 0.1 TH/MM3 (0-0.4); EOSINOPHIL % 0.4 % (0.0-4.0); HEMATOCRIT 25.5 % (39.0-51.0); HEMO FLAGS DIFF FINAL; LYMPHOCYTE # 3.2 TH/MM3 (1.0-4.8); MEAN CELL VOLUME 73.8 FL (80.0-100.0); MEAN CORPUSCULAR HEMOGLOBIN 23.1 PG (27.0-34.0); MEAN CORPUSCULAR HGB CONC 31.3 % (32.0-36.0); MONO % 6.2 % (0.0-8.0); NEUT % 79.2 % (16.0-70.0); PLATELET COUNT 472 TH/MM3 (150-450); RED BLOOD COUNT 3.46 MIL/MM3 (4.50-5.90); RED CELL DISTRIBUTION WIDTH 19.3 % (11.6-17.2); WHITE BLOOD COUNT 24.9 TH/MM3 (4.0-11.0)
[2017-08-04 07:21] LABS: ALKALINE PHOSPHATASE 141 U/L (45-117); ALT (GPT) 12 U/L (12-78); ANION GAP 7 MEQ/L (5-15); AST (GOT) 11 U/L (15-37); BICARBONATE 23.1 MEQ/L (21.0-32.0); BLOOD UREA NITROGEN 14 MG/DL (7-18); CHLORIDE 108 MEQ/L (98-107); GLOMERULAR FILTRATION RATE 109 ML/MIN (>89); POTASSIUM 3.8 MEQ/L (3.5-5.1); SODIUM (NA) 138 MEQ/L (136-145); TOTAL BILIRUBIN ADULT 0.3 MG/DL (0.2-1.0)
[2017-08-04 08:00] VITALS: BP 154/65; PULSE 110; RESP 15; TEMP 98.2; O2SAT 90
[2017-08-04] MEDS: INSULIN ASPART SUPPLEMENTAL SCALE SQ SCH ×3 (08:00→17:00)
[2017-08-04] MEDS: INSULIN DETEMIR 100 UNITS/ML VIAL SQ SCH (09:00)
--- NOTE | 2017-08-04 10:00 | HHI.PR ---
Subjective Remarks This is a 52-year-old male with a PMH of HTN, DM, Peripheral Neuropathy, PVD and Chronic Left Foot Ulcer who was referred to the ER by PCP, Dr. Hernandez, for admission and further evaluation of left heel ulcer. Patient with chronic ulcer for the last 4 months, currently under Wound Care, states he recently completed antibiotics for left heel infection, was seen by PCP today and instructed to come to ER. Per pt, progressive pain to left heel especially w/ ambulation, today felt a 'crunch" followed by intense pain. On arrival, BP 126/ 68, HR 110, O2 sat 99% on RA, Afebrile. WBC 25.4. K+ 5.5. Lactic Acid 1.3. INR 1.2. LE Doppler negative for DVT. Foot X-ray w/ erosive changes along posterior calcaneus with possible avulsion injury. MRI Foot with large soft tissue ulcer of the heel with broad area of osteomyelitis of the posterior calcaneus, Achilles tendon ruptured at its insertion. S/p Vanc/Zosyn in ER 08-04 await infectious disease as well as podiatry evaluation No new complaints Is on vancomycin and Zosyn discussed with patient and RN Objective Vitals Vital Signs Date Time Temp Pulse Resp B/P (MAP) Pulse Ox O2 Delivery O2 Flow Rate FiO2 08/04/17 04:00 97.0 109 18 139/63 (88) 90 08/03/17 21:50 98.8 127 18 156/73 (100) 95 08/03/17 20:56 85 20 167/70 (102) 94 08/03/17 16:09 97.4 110 15 126/68 (87) 99 I/O 08/03/17 08/03/17 08/03/17 08/04/17 08/04/17 08/04/17 07:00 15:00 23:00 07:00 15:00 23:00 Intake Total 1050 ml Output Total 1000 ml Balance 1050 ml -1000 ml Intake IV Total 1050 ml Output Urine Total 1000 ml Result Diagram: 08/04/17 0543 08/04/17 0543 Other Results Laboratory Tests Test 08/03/17 17:37 08/04/17 05:43 White Blood Count 25.4 TH/MM3 24.9 TH/MM3 Red Blood Count 4.17 MIL/MM3 3.46 MIL/MM3 Hemoglobin 9.6 GM/DL 8.0 GM/DL Hematocrit 30.6 % 25.5 % Mean Corpuscular Volume 73.3 FL 73.8 FL Mean Corpuscular Hemoglobin 23.1 PG 23.1 PG Mean Corpuscular Hemoglobin Concent 31.5 % 31.3 % Red Cell Distribution Width 19.4 % 19.3 % Platelet Count 554 TH/MM3 472 TH/MM3 Mean Platelet Volume 7.9 FL 7.3 FL Neutrophils (%) (Auto) 83.9 % 79.2 % Lymphocytes (%) (Auto) 8.7 % 13.0 % Monocytes (%) (Auto) 5.1 % 6.2 % Eosinophils (%) (Auto) 1.0 % 0.4 % Basophils (%) (Auto) 1.3 % 1.2 % Neutrophils # (Auto) 21.3 TH/MM3 19.7 TH/MM3 Lymphocytes # (Auto) 2.2 TH/MM3 3.2 TH/MM3 Monocytes # (Auto) 1.3 TH/MM3 1.6 TH/MM3 Eosinophils # (Auto) 0.2 TH/MM3 0.1 TH/MM3 Basophils # (Auto) 0.3 TH/MM3 0.3 TH/MM3 CBC Comment DIFF FINAL DIFF FINAL Differential Comment Erythrocyte Sedimentation Rate 24 mm/hr Prothrombin Time 13.5 SEC Prothromb Time International Ratio 1.2 RATIO Activated Partial Thromboplast Time 25.6 SEC Blood Urea Nitrogen 17 MG/DL 14 MG/DL Creatinine 1.03 MG/DL 0.75 MG/DL Random Glucose 302 MG/DL 47 MG/DL Total Protein 6.7 GM/DL 5.4 GM/DL Albumin 2.2 GM/DL 1.7 GM/DL Calcium Level 8.7 MG/DL 7.6 MG/DL Magnesium Level 1.9 MG/DL Alkaline Phosphatase 179 U/L 141 U/L Aspartate Amino Transf (AST/SGOT) 24 U/L 11 U/L Alanine Aminotransferase (ALT/SGPT) 18 U/L 12 U/L Total Bilirubin 0.5 MG/DL 0.3 MG/DL Sodium Level 134 MEQ/L 138 MEQ/L Potassium Level 5.5 MEQ/L 3.8 MEQ/L Chloride Level 102 MEQ/L 108 MEQ/L Carbon Dioxide Level 25.9 MEQ/L 23.1 MEQ/L Anion Gap 6 MEQ/L 7 MEQ/L Estimat Glomerular Filtration Rate 76 ML/MIN 109 ML/MIN Lactic Acid Level 1.3 mmol/L C-Reactive Protein 9.20 MG/DL Imaging Last Impressions Lower Extremity Ultrasound 08/03/17 1705 Signed Impressions: Service Date/Time: , August 03, 2017 17:39 - CONCLUSION: No DVT of the left lower extremity. Jose Francisco Rodriguez MD Foot X-Ray 08/03/17 0000 Signed Impressions: Service Date/Time: July 17:19 - CONCLUSION: 1. Erosive changes along the posterior calcaneus with possible avulsion injury superiorly. MRI pending to assess for infection and trauma. Gustavo Hicks MD Foot MRI 08/03/17 0000 Signed Impressions: Service Date/Time: July 19:20 - CONCLUSION: Large soft tissue ulcer of the heel and with a broad area of osteomyelitis of the posterior calcaneus. The Achilles tendon is ruptured at its insertion. No drainable abscess. Jose Francisco Rodriguez MD Objective Remarks GENERAL: Awake alert oriented talkative and cooperative SKIN: Warm and dry. Left heel with large open wound HEAD: Atraumatic. Normocephalic. EYES: Pupils equal and round. No scleral icterus. No injection or drainage. EOMI ENT: No nasal bleeding or discharge. Mucous membranes pink and moist. Tongue is midline NECK: Trachea midline. No JVD. Supple CARDIOVASCULAR: Regular rate and rhythm. S1-S2 no S3 or S4 RESPIRATORY: No accessory muscle use. Clear to auscultation. Breath sounds equal bilaterally. GASTROINTESTINAL: Abdomen soft, non-tender, nondistended. Hepatic and splenic margins not palpable. MUSCULOSKELETAL: Extremities without clubbing, cyanosis, or edema. No obvious deformities. Left heel large ulcer NEUROLOGICAL: Awake and alert. No obvious cranial nerve deficits. Motor grossly within normal limits. Five out of 5 muscle strength in the arms and legs. Normal speech. PSYCHIATRIC: Appropriate mood and affect; insight and judgment normal. Medications and IVs Current Medications Sodium Chloride 1,000 ml @ 1,000 mls/hr Q1H IV Last administered on 08/03/17t 18:02; Start 08/03/17 at 17:03; Stop 08/03/17 at 18:02; Status DC Vancomycin HCl 1000 mg/Sodium Chloride 250 ml @ 250 mls/hr ONCE ONCE IV Last administered on 08/03/17 19:24; Start 08/03/17 at 17:15; Stop 08/03/17 at 18:14 ; Status DC Piperacillin Sod/ Tazobactam Sod 50 ml @ 100 mls/hr ONCE ONCE IV Last administered on 08/03/17 18:02; Start 08/03/17 at 17:15; Stop 08/03/17 at 17:44 ; Status DC Insulin Human Regular (NovoLIN R INJ) 5 units ONCE ONCE IV PUSH ; Start at 19:00; Stop 08/03/17 at 19:01; Status DC Sodium Polystyrene Sulfonate (Kayexalate Liq) 15 gm ONCE ONCE PO Last administered on 08/03/17 20:19; Start 08/03/17 at 19:00; Stop 08/03/17 at 19:01 ; Status DC Sodium Chloride 1,000 ml @ 1,000 mls/hr Q1H IV Last administered on 08/03/17 20:19; Start 08/03/17 at 19:01; Stop 08/03/17 at 20:00; Status DC Dextrose (D50w (Syr) Inj) 50 ml UNSCH PRN IV PUSH HYPOGLYCEMIA-SEE COMMENTS; Start 08/03/17 at 19:30 Glucagon (Glucagon Inj) 1 mg UNSCH PRN OTHER HYPOGLYCEMIA-SEE COMMENTS; Start 08/03/17 at 19:30 Insulin Aspart (NovoLOG SUPPLEMENTAL SCALE) 1 ACHS SLIDING SCALE SQ Last administered on 08/03/17 23:27; Start 08/03/17 at 21:00 Pharmacy Profile Note 0 ml @ 0 mls/hr UNSCH OTHER ; Start 08/03/17 at 19:30 Cefepime HCl 1000 mg/Sodium Chloride 100 ml @ 200 mls/hr DAILY IV ; Start 08/04 at 09:00 Sodium Chloride 1,000 ml @ 100 mls/hr Q10H IV Last administered on 08/04/17 00:09; Start 08/03/17 at 19:30 Sodium Chloride (NS Flush) 2 ml UNSCH PRN IV FLUSH FLUSH AFTER USING IV ACCESS Last administered on 08/04/17 02:54; Start 08/03/17 at 19:30 Sodium Chloride (NS Flush) 2 ml BID IV FLUSH ; Start 08/03/17 at 21:00 Ondansetron HCl (Zofran Inj) 4 mg Q6H PRN IVP NAUSEA OR VOMITING Last administered on 08/03/17 21:08; Start 08/03/17 at 19:30 Heparin Sodium (Porcine) (Heparin Inj) 5,000 units Q12H SQ ; Start 08/04/17 at 09:00 Acetaminophen (Tylenol) 650 mg Q6H PRN PO FEVER/PAIN SCALE 1 TO 2; Start at 19:30 Acetaminophen/ Hydrocodone Bitart ([place] 5-325 Mg) 1 tab Q4H PRN PO PAIN SCALE 3 TO 5; Start 08/03/17 at 19:30 Morphine Sulfate (Morphine Inj) 2 mg Q3H PRN IV PUSH Pain 6-10 Last administered on 08/04/17 02:54; Start 08/03/17 at 19:30 Senna/Docusate Sodium (Alanna-Colace) 1 tab BID PO ; Start 08/03/17 at 21:00 Magnesium Hydroxide (Milk Of Magnesia Liq) 30 ml Q12H PRN PO MILD - MODERATE CONSTIPATION; Start 08/03/17 at 19:30 Sennosides (Senokot) 17.2 mg Q12H PRN PO MODERATE - SEVERE CONSTIPATION; Start 08/03/17 at 19:30 Bisacodyl (Dulcolax Supp) 10 mg DAILY PRN RECTAL SEVERE CONSITIPATION; Start at 19:30 Lactulose (Lactulose Liq) 30 ml DAILY PRN PO SEVERE CONSITIPATION; Start at 19:30 Clopidogrel Bisulfate (Plavix) 75 mg DAILY@1600 PO ; Start 08/04/17 at 16:00 Gabapentin (Neurontin) 600 mg QID PO Last administered on 08/04/17 00:07; Start 08/03/17 at 21:00 Insulin Detemir (Levemir Inj) 60 units BID SQ Last administered on 08/03/17 23 :26; Start 08/03/17 at 21:00 Pantoprazole Sodium (Protonix) 40 mg DAILY@1600 PO ; Start 08/04/17 at 16:00 Gadodiamide (Omniscan Pf Inj) 18 ml STK-MED ONCE IVCONTRAST Last administered on 08/03/17 19:50; Start 08/03/17 at 19:50; Stop 08/03/17 at 19:51; Status DC Vancomycin HCl 2300 mg/Sodium Chloride 523 ml @ 250 mls/hr NOW ONCE IV Last administered on 08/04/17 00:49; Start 08/03/17 at 21:00; Stop 08/03/17 at 23:05 ; Status DC Vancomycin HCl 1500 mg/Sodium Chloride 515 ml @ 250 mls/hr Q12H IV ; Start at 09:00 A/P Problem List: (1) Sepsis ICD Code: A41.9 - Sepsis, unspecified organism Status: Acute (2) Osteomyelitis ICD Code: M86.9 - Osteomyelitis, unspecified (3) Hyperkalemia ICD Code: E87.5 - Hyperkalemia (4) HTN (hypertension) ICD Code: I10 - Essential (primary) hypertension (5) DM (diabetes mellitus) ICD Code: E11.9 - Type 2 diabetes mellitus without complications Assessment and Plan 1. Sepsis: HR 110, WBC 25.4, Source-Left Heel Ulcer. S/p Blood Cultures, Vanco/Zosyn in ER. Follow up cultures, continue IV Abx. 2. Osteomyelitis: Left Foot. X-ray w/ erosive changes along posterior calcaneus with possible avulsion injury, MRI Foot with large soft tissue ulcer heal and broad area of osteomyelitis of posterior calcaneus with rupture of Achilles tendon, images reviewed . S/p IV Abx as above, will continue. Consult Podiatry and ID. 3. Hyperkalemia: Mild. K+ 5.5. S/p Insulin/D50 in ER, will repeat in am. 4. HTN: BP 150-160's, likely compounded by pain, optimize pain control, monitor BP. 5. DM: Sliding scale w/ Accu-Cheks. Resume home Insulin Glycemia monitor blood sugars 6. DVT Prophylaxis: Heparin sq 7. Social work for d/c planning as needed A.m. labs continue on current antibiotic treatment Problem Qualifiers (1) Sepsis: Qualified Codes: A41.9 - Sepsis, unspecified organism Piyush Zuluaga DO Aug 04, 2017 10:00
[2017-08-04] MEDS: DOCUSATE SODIUM 50 MG/SENNA 8.6 MG TAB PO SCH ×2 (10:58→21:02)
[2017-08-04] MEDS: SODIUM CHLORIDE 0.9% FLUSH 10 ML FLUSH IV FLUSH SCH ×2 (10:59→21:00)
[2017-08-04] MEDS: HEPARIN SODIUM - SQ 10,000 UNITS/ML VIAL SQ SCH ×2 (10:59→21:02)
[2017-08-04] MEDS: CEFEPIME INJ 1,000 MG in SODIUM CHLORIDE 0.9% INJ 100 ML IV SCH (11:06)
[2017-08-04 12:00] VITALS: BP 143/75; PULSE 113; RESP 15; TEMP 98.9; O2SAT 94
[2017-08-04] MEDS: VANCOMYCIN INJ 1,500 MG in SODIUM CHLORID 0.9% 500 ML INJ 500 ML IV SCH ×2 (12:50→21:01)
[2017-08-04 14:39] VITALS: PULSE 110
--- NOTE | 2017-08-04 15:44 | PD.ID.CON ---
History of Present Illness Service ID Consult Requested By Dr Loco Reason for Consult L heel osteomyelitis Primary Care Physician Rey Hernandez MD Diagnoses: History of Present Illness 52 yo tobacco + diabetic male with poorly controlelled DM presents with 4 monsth of black eschar on his L heel He was getting serial debridement of the heel but every tinme aftre debridement the eschar would get worse He denies fever, but endorses some chills Pt was afebrile on presentation but had WBC of 24K His blood clx are positive for Gram + cocci and his wound clx growing gram + renato as well His MRI showed Large soft tissue ulcer of the heel and with a broad area of osteomyelitis of the posterior calcaneus. The Achilles tendon is ruptured at its insertion. Review of Systems Except as stated in HPI: all other systems reviewed are Neg Past Family Social History Allergies: Coded Allergies: *MDRO Multi-Drug Resistant Organism (Verified Adverse Reaction, Unknown, ) MRSA (arm wound) - 01/2016 MRSA (blood, urine, wound) - 06/2013 Past Medical History PMH: HTN, DM, Peripheral Neuropathy, PVD and Chronic Left Foot Ulcer Past Surgical History Dental Extraction, LLE Debridement Active Ordered Medications Medications where reviewed in EMR Antibiotics Include: cefepime vancomycin Family History Reviewed. Non-Contributory. Social History Negative for alcohol or drugs. Smokes 1/2ppd. Physical Exam Vital Signs Vital Signs Date Time Temp Pulse Resp B/P (MAP) Pulse Ox O2 Delivery O2 Flow Rate FiO2 08/04/17 14:39 110 08/04/17 12:00 98.9 113 15 143/75 (97) 94 08/04/17 08:00 98.2 110 15 154/65 (94) 90 08/04/17 04:00 97.0 109 18 139/63 (88) 90 08/03/17 21:50 98.8 127 18 156/73 (100) 95 08/03/17 20:56 85 20 167/70 (102) 94 08/03/17 16:09 97.4 110 15 126/68 (87) 99 Physical Exam CONSTITUTIONAL/GENERAL: This is an adequately nourished patient, in no apparent distress. TUBES/LINES/DRAINS: SKIN: No jaundice, rashes, or lesions. Skin temperature appropriate. Not diaphoretic. HEAD: Atraumatic. Normocephalic. EYES: Pupils equal and round and reactive. Extraocular motions intact. No scleral icterus. No injection or drainage. Fundi not examined. ENT: Hearing grossly normal. Nose without bleeding or purulent drainage. Throat without visible erythema, exudates, masses, or lesions. POor dentition NECK: Trachea midline. Supple, nontender. No palpable thyroid enlargement or nodularity. CARDIOVASCULAR: Regular rate and rhythm without murmurs, gallops, or rubs. No JVD. Peripheral pulses symmetric. RESPIRATORY/CHEST: Symmetric, unlabored respirations. Clear to auscultation. Breath sounds equal bilaterally. No wheezes, rales, or rhonchi. GASTROINTESTINAL: Abdomen soft, non-tender, nondistended. No hepato-splenomegaly , or palpable masses. No guarding. Bowel sounds present. MUSCULOSKELETAL: Extremities without clubbing, cyanosis, or edema. Light touch sensation abscent on BLE up to the knees refill brisk, < 2 sec L heel is necrotic with unstagible but @ least stage 3 decubitus with erythematous rim about 2 cm LYMPHATICS: No palpable cervical or supraclavicular adenopathy. + L inguinal lymphadenopathy NEUROLOGICAL: Awake and alert. Motor and sensory grossly within normal limits. Follows commands. Clear speech Moves all extremities. PSYCHIATRIC: No obvious anxiety/depression. no apparent hallucinations or other psychotic thought process. Laboratory Laboratory Tests Test 08/03/17 17:37 08/04/17 05:43 White Blood Count 25.4 24.9 Red Blood Count 4.17 3.46 Hemoglobin 9.6 8.0 Hematocrit 30.6 25.5 Mean Corpuscular Volume 73.3 73.8 Mean Corpuscular Hemoglobin 23.1 23.1 Mean Corpuscular Hemoglobin Concent 31.5 31.3 Red Cell Distribution Width 19.4 19.3 Platelet Count 554 472 Mean Platelet Volume 7.9 7.3 Neutrophils (%) (Auto) 83.9 79.2 Lymphocytes (%) (Auto) 8.7 13.0 Monocytes (%) (Auto) 5.1 6.2 Eosinophils (%) (Auto) 1.0 0.4 Basophils (%) (Auto) 1.3 1.2 Neutrophils # (Auto) 21.3 19.7 Lymphocytes # (Auto) 2.2 3.2 Monocytes # (Auto) 1.3 1.6 Eosinophils # (Auto) 0.2 0.1 Basophils # (Auto) 0.3 0.3 CBC Comment DIFF FINAL DIFF FINAL Differential Comment Erythrocyte Sedimentation Rate 24 Prothrombin Time 13.5 Prothromb Time International Ratio 1.2 Activated Partial Thromboplast Time 25.6 Blood Urea Nitrogen 17 14 Creatinine 1.03 0.75 Random Glucose 302 47 Total Protein 6.7 5.4 Albumin 2.2 1.7 Calcium Level 8.7 7.6 Magnesium Level 1.9 Alkaline Phosphatase 179 141 Aspartate Amino Transf (AST/SGOT) 24 11 Alanine Aminotransferase (ALT/SGPT) 18 12 Total Bilirubin 0.5 0.3 Sodium Level 134 138 Potassium Level 5.5 3.8 Chloride Level 102 108 Carbon Dioxide Level 25.9 23.1 Anion Gap 6 7 Estimat Glomerular Filtration Rate 76 109 Lactic Acid Level 1.3 C-Reactive Protein 9.20 Date/Time Source Procedure Growth Status 08/03/17 17:43 Blood Peripheral Aerobic Blood Culture Pending Resulted 08/03/17 17:43 Anaerobic Blood Culture - Preliminary Gram Positive Cocci Resulted 08/03/17 17:42 Wound Foot Gram Stain - Final Resulted 08/03/17 17:42 Wound Culture - Preliminary Gram Positive Cocci Resulted Result Diagram: 08/04/17 0543 08/04/17 0543 Imaging Last Impressions Lower Extremity Ultrasound 08/03/17 1705 Signed Impressions: Service Date/Time: July 17:39 - CONCLUSION: No DVT of the left lower extremity. Jose Francisco Rodriguez MD Foot X-Ray 08/03/17 0000 Signed Impressions: Service Date/Time: July 17:19 - CONCLUSION: 1. Erosive changes along the posterior calcaneus with possible avulsion injury superiorly. MRI pending to assess for infection and trauma. Gustavo Hicks MD Foot MRI 08/03/17 0000 Signed Impressions: Service Date/Time: July 19:20 - CONCLUSION: Large soft tissue ulcer of the heel and with a broad area of osteomyelitis of the posterior calcaneus. The Achilles tendon is ruptured at its insertion. No drainable abscess. Jose Francisco Rodriguez MD Assessment and Plan Assessment and Plan DFI, dry gangrene L heel Probable underlying vascular insufficiency Gram positive bactermia, sepsis 2/2 DFI cont vancomycin dc other abx if no e/o co-infx agbree with podiatry consult pt needs vascular work up fu clx untill final Renee Garcia MD Aug 04, 2017 15:43
[2017-08-04] MEDS: PANTOPRAZOLE SOD 40 MG DELAYED RELEASE TAB PO SCH (15:55)
[2017-08-04] MEDS: CLOPIDOGREL 75 MG TAB PO SCH (15:56)
[2017-08-04 16:00] VITALS: BP 139/91; PULSE 120; RESP 15; TEMP 99; O2SAT 92
--- NOTE | 2017-08-04 18:35 | MB ---
cc: YSABEL JIN DPM DATE OF CONSULTATION 08/04/17 CHIEF COMPLAINT Left foot ulceration and infection. HISTORY OF PRESENT ILLNESS Mr. Lehman is a 52-year-old male patient with brittle diabetes. He was admitted by his PCP, Dr. Hernandez, for evaluation of a worsening left heel ulceration. The patient has had this ulcer for several months now, over a year most likely. He gets routine wound care by a wound technologist. This is not a wound care nurse, but is someone trained in wound care who can apparently do debridements. They debrided the eschar on a semi regular basis, but the patient thinks this may actually make it worse. He is also concerned because a few days ago as he was walking he felt a crunch and a pop in the back of the ankle. He normally does not feel much to the lower extremities but does state that he is having a severe amount of pain today. He also notes a decubitus ulcer on his buttocks area. The patient is very quick to say that he does not want to lose his leg and wants to avoid amputation. He denies any nausea, vomiting, fever, headaches or chills but does state that he has had some weakness lately. PAST MEDICAL HISTORY 1. Hypertension, 2. Diabetes mellitus, 3. Peripheral neuropathy. 4. PVD 5. Chronic left foot ulcer 6. MRSA history PAST SURGICAL HISTORY 1. Dental extraction 2. Several left foot surgeries. ALLERGIES NO KNOWN DRUG ALLERGIES. FAMILY HISTORY Unremarkable. SOCIAL HISTORY Negative for drugs or alcohol. Smokes half a pack a day. Lives at home with his . VITAL SIGNS: Temperature is 98.9 which is also T-max. LABORATORY DATA White count is 24.9, hemoglobin is 8, hematocrit 25.5, platelets 474, INR 1.2. Sodium 138, potassium 3.8, chloride 108, BUN 14, creatinine 0.75, glucose 47, C-reactive protein 9.2. Blood cultures positive for gram-positive cocci streptococcus and wound cultures are positive for gram-positive cocci as well. IMAGING STUDIES X-rays are negative for any gas in the soft tissue, Kagers triangle is interrupted though. On the MRI, there is noted osteomyelitis of the posterior 1/3 of the calcaneus as well as a rupture and retraction of the Achilles tendon, no abscess and again no gas in the soft tissues. PHYSICAL EXAMINATION On physical exam, the right foot is unremarkable. The left foot has diminished DP and PT pulses. Cap fill time is normal. There is some mild swelling to the foot and ankle, slight cool to touch. Gross sensation is diminished. On the plantar posterior aspect of the heel, there is a large full thickness eschar approximately 9 cm x 9 cm, thickness is unknown. There is periwound erythema and no drainage. ASSESSMENT/PLAN 1. Left heel eschar with osteomyelitis and sepsis. Infectious Disease is following and managing antibiotics. - From a limb salvage standpoint, the patient would need a radical wound debridement and partial calcanectomy with a wound VAC and long-term hyperbaric oxygen therapy. However, until the patient's vascular status can be further confirmed, I would like to hold off on any surgery. - CTA has been ordered - I have ordered an air mattress for the patient to reduce pressure. - No dressings are needed to the left foot. - The patient should avoid weightbearing on the left heel. - Floating calves I will follow the patient closely while in-house. Thank you for this consultation. Ysabel SINGH/ /4:58 PM /6:11 PM GREGORY
[2017-08-04] MEDS ORDERED: IOHEXOL 350 MG/ML 10 ML VIAL (for RAD DIAG) IVCONTRAST ONE (19:38)
[2017-08-04 20:00] VITALS: BP 123/57; PULSE 124; RESP 18; TEMP 100.8; O2SAT 92
[2017-08-05] VITALS (8 sets, daily range): BP systolic 129–189; BP diastolic 62–87; PULSE 102–116; RESP 18–19; TEMP 97.8–99.2; O2SAT 92–97
[2017-08-05] MEDS: INSULIN DETEMIR 100 UNITS/ML VIAL SQ SCH ×3 (00:30→22:15)
[2017-08-05] MEDS: INSULIN ASPART SUPPLEMENTAL SCALE SQ SCH ×5 (00:30→21:14)
[2017-08-05] MEDS: MORPHINE SULFATE 4 MG/ML INJ IV PUSH PRN ×6 (00:32→23:55)
[2017-08-05] MEDS: SODIUM CHLOR 0.9% 1000 ML INJ 1,000 ML IV SCH ×3 (01:30→23:43)
[2017-08-05 07:42] LABS: AUTOMATED NEUTROPHIL # 16.9 TH/MM3 (1.8-7.7); BASOPHIL # 0.2 TH/MM3 (0-0.2); EOSINOPHIL # 0.3 TH/MM3 (0-0.4); EOSINOPHIL % 1.5 % (0.0-4.0); HEMATOCRIT 26.5 % (39.0-51.0); HEMO FLAGS DIFF FINAL; LYMPH % 12.1 % (9.0-44.0); LYMPHOCYTE # 2.6 TH/MM3 (1.0-4.8); MEAN CELL VOLUME 72.6 FL (80.0-100.0); MEAN CORPUSCULAR HEMOGLOBIN 23.2 PG (27.0-34.0); MEAN CORPUSCULAR HGB CONC 31.9 % (32.0-36.0); MONO % 6.3 % (0.0-8.0); NEUT % 79.1 % (16.0-70.0); PLATELET COUNT 498 TH/MM3 (150-450); RED BLOOD COUNT 3.65 MIL/MM3 (4.50-5.90); RED CELL DISTRIBUTION WIDTH 18.8 % (11.6-17.2); WHITE BLOOD COUNT 21.3 TH/MM3 (4.0-11.0)
[2017-08-05] MEDS: CEFEPIME INJ 1,000 MG in SODIUM CHLORIDE 0.9% INJ 100 ML IV SCH (08:13)
[2017-08-05 08:17] LABS: ALKALINE PHOSPHATASE 185 U/L (45-117); ALT (GPT) 18 U/L (12-78); ANION GAP 9 MEQ/L (5-15); AST (GOT) 22 U/L (15-37); BICARBONATE 24.2 MEQ/L (21.0-32.0); BLOOD UREA NITROGEN 12 MG/DL (7-18); CHLORIDE 102 MEQ/L (98-107); FREE T4 0.93 NG/DL (0.76-1.46); GLOMERULAR FILTRATION RATE 88 ML/MIN (>89); MAGNESIUM 1.6 MG/DL (1.5-2.5); POTASSIUM 4.1 MEQ/L (3.5-5.1); SODIUM (NA) 135 MEQ/L (136-145); TOTAL BILIRUBIN ADULT 0.2 MG/DL (0.2-1.0)
[2017-08-05] MEDS: DOCUSATE SODIUM 50 MG/SENNA 8.6 MG TAB PO SCH ×2 (08:17→20:53)
[2017-08-05] MEDS: HEPARIN SODIUM - SQ 10,000 UNITS/ML VIAL SQ SCH ×2 (08:18→20:54)
[2017-08-05] MEDS: GABAPENTIN 300 MG CAP PO SCH ×4 (08:19→20:53)
[2017-08-05] MEDS: SODIUM CHLORIDE 0.9% FLUSH 10 ML FLUSH IV FLUSH SCH ×2 (08:19→21:00)
[2017-08-05] MEDS ORDERED: PHARMACY ORDERED LAB ONE (08:45)
--- NOTE | 2017-08-05 09:00 | RADRPT ---
EXAM DATE/TIME: 08/04/2017 19:29 [facility] COMPARISON: CTA RUNOFF W 3D RECON, January 05, 2016, 3:29. INDICATIONS : Left leg pain, occlusion. Wound on left calcaneus. IV CONTRAST: 100 cc Omnipaque 350 (iohexol) IV RADIATION DOSE: 2.57 CTDIvol (mGy) MEDICAL HISTORY : Diabetes mellitus type 2. Hypertension. Chronic obstructive pulmonary disease. Carcinoma, basal cell. SURGICAL HISTORY : Wound care. ENCOUNTER: Initial ACUITY: 1 day PAIN SCALE: 4/10 LOCATION: Bilateral lower leg region. TECHNIQUE: Volumetric scanning was performed using a multi-row detector CT scanner. The data was post processed with a variety of visualization algorithms including full volume maximum intensity projection, multi -planar sliding thin slab reformation, curved planar reformation, and surface rendering techniques. Using automated exposure control and adjustment of the mA and/or kV according to patient size, radiat ion dose was kept as low as reasonably achievable to obtain optimal diagnostic quality images. DICO M format image data is available electronically for review and comparison. FINDINGS: ABDOMINAL AORTA: The abdominal aorta is non-aneurysmal and demonstrates severe atherosclerotic disease, most severe in the infrarenal portions. The GINA is patent. There are patent single renal arteries bilaterally which demonstrate no significant stenosis. Celiac trunk and its major branches are within normal limits. T here is eccentric noncalcified plaque in the proximal superior mesenteric artery causing moderate patrick nosis, similar to the prior examination. More distal SMA demonstrates no significant narrowing. RIGHT PELVIS: There is moderate to severe atherosclerotic calcified plaque of the common iliac artery with mild ath erosclerotic disease within the internal and external branches. However, no high-grade stenosis is pr esent. LEFT PELVIS: There is moderate to severe atherosclerotic calcified plaque of the common iliac artery with mild ath erosclerotic disease within the internal and external branches. However, no high-grade stenosis is pr esent. RIGHT THIGH: There is mild atherosclerotic disease of the distal superficial femoral artery. However, no high-grad e stenosis is present. Profunda femoris is within normal limits. There is mild atherosclerotic diseas e of the popliteal artery without significant stenosis. LEFT THIGH: There is moderate to severe predominantly noncalcified plaque of the distal superficial femoral arter y with a short segment of focal high-grade narrowing measuring approximately 1 cm in length. Poplitea l artery demonstrates mild atherosclerotic disease but no significant stenosis. Profunda femoris is w ithin normal limits. RIGHT LEG: Normal trifurcation. The 3 vessels are visualized into the distal leg without high-grade stenosis. LEFT LEG: Normal trifurcation. The anterior posterior tibial arteries are visualized into the distal leg to the ankle. Peroneal artery is only visualized proximally. Nonvascular findings: There are small bilateral pleural effusions, right larger than left with associated compressive atele ctasis. Liver density is suggestive of steatosis. A the kidneys, adrenal glands, spleen, and pancreas demonstrate no acute finding. There is a nonobstructive bowel gas pattern. Urinary bladder is disten ded. There is vas deferens calcifications, indicating diabetes. CONCLUSION: 1. Severe atherosclerotic disease. There is a focal short segment high-grade stenosis of the distal l eft superficial femoral artery. This stenosic segment measures approximately 1 cm in length and repre sents a change from the prior study. Remaining left lower extremity arterial vessels demonstrate no s ignificant change from the prior exam. 2. Moderate narrowing of the proximal superior mesenteric artery secondary to noncalcified plaque. Th is finding is stable. 3. Small bilateral pleural effusions with associated compressive atelectasis. Jose Francisco Rogers MD on August 05, 2017 at 8:50 Board Certified Radiologist. This report was verified electronically.
[2017-08-05] MEDS: VANCOMYCIN INJ 1,500 MG in SODIUM CHLORID 0.9% 500 ML INJ 500 ML IV SCH (09:10)
--- NOTE | 2017-08-05 14:05 | HHI.PR ---
Subjective Remarks This is a 52-year-old male with a PMH of HTN, DM, Peripheral Neuropathy, PVD and Chronic Left Foot Ulcer who was referred to the ER by PCP, Dr. Hernandez, for admission and further evaluation of left heel ulcer. Patient with chronic ulcer for the last 4 months, currently under Wound Care, states he recently completed antibiotics for left heel infection, was seen by PCP today and instructed to come to ER. Per pt, progressive pain to left heel especially w/ ambulation, today felt a 'crunch" followed by intense pain. On arrival, BP 126/ 68, HR 110, O2 sat 99% on RA, Afebrile. WBC 25.4. K+ 5.5. Lactic Acid 1.3. INR 1.2. LE Doppler negative for DVT. Foot X-ray w/ erosive changes along posterior calcaneus with possible avulsion injury. MRI Foot with large soft tissue ulcer of the heel with broad area of osteomyelitis of the posterior calcaneus, Achilles tendon ruptured at its insertion. S/p Vanc/Zosyn in ER 08-04 await infectious disease as well as podiatry evaluation No new complaints Is on vancomycin and Zosyn discussed with patient and RN 08-05 RADIOLOGY RESULTS REVIEWED- CONSULT VASCULAR FOR EVAL OF LEFT LE ADJUST BP MEDS Objective Vitals Vital Signs Date Time Temp Pulse Resp B/P (MAP) Pulse Ox O2 Delivery O2 Flow Rate FiO2 08/05/17 12:00 98.9 116 19 189/85 (119) 96 08/05/17 09:00 97.8 108 19 164/87 (112) 96 08/05/17 04:00 98.8 114 18 179/81 (113) 92 08/05/17 00:00 99.2 114 18 167/76 (106) 93 08/04/17 20:00 100.8 124 18 123/57 (79) 92 08/04/17 16:00 99.0 120 15 139/91 (107) 92 08/04/17 14:39 110 I/O 08/04/17 08/04/17 08/04/17 08/05/17 08/05/17 08/05/17 07:00 15:00 23:00 07:00 15:00 23:00 Intake Total 100 ml 100 ml Output Total 1000 ml Balance -1000 ml 100 ml 100 ml Intake IV Total 100 ml 100 ml Output Urine Total 1000 ml # Voids 3 Result Diagram: 08/05/17 0717 08/05/17 0717 Other Results Laboratory Tests Test 08/03/17 17:37 08/04/17 05:43 08/05/17 07:17 White Blood Count 25.4 TH/MM3 24.9 TH/MM3 21.3 TH/MM3 Red Blood Count 4.17 MIL/MM3 3.46 MIL/MM3 3.65 MIL/MM3 Hemoglobin 9.6 GM/DL 8.0 GM/DL 8.5 GM/DL Hematocrit 30.6 % 25.5 % 26.5 % Mean Corpuscular Volume 73.3 FL 73.8 FL 72.6 FL Mean Corpuscular Hemoglobin 23.1 PG 23.1 PG 23.2 PG Mean Corpuscular Hemoglobin Concent 31.5 % 31.3 % 31.9 % Red Cell Distribution Width 19.4 % 19.3 % 18.8 % Platelet Count 554 TH/MM3 472 TH/MM3 498 TH/MM3 Mean Platelet Volume 7.9 FL 7.3 FL 7.8 FL Neutrophils (%) (Auto) 83.9 % 79.2 % 79.1 % Lymphocytes (%) (Auto) 8.7 % 13.0 % 12.1 % Monocytes (%) (Auto) 5.1 % 6.2 % 6.3 % Eosinophils (%) (Auto) 1.0 % 0.4 % 1.5 % Basophils (%) (Auto) 1.3 % 1.2 % 1.0 % Neutrophils # (Auto) 21.3 TH/MM3 19.7 TH/MM3 16.9 TH/MM3 Lymphocytes # (Auto) 2.2 TH/MM3 3.2 TH/MM3 2.6 TH/MM3 Monocytes # (Auto) 1.3 TH/MM3 1.6 TH/MM3 1.3 TH/MM3 Eosinophils # (Auto) 0.2 TH/MM3 0.1 TH/MM3 0.3 TH/MM3 Basophils # (Auto) 0.3 TH/MM3 0.3 TH/MM3 0.2 TH/MM3 CBC Comment DIFF FINAL DIFF FINAL DIFF FINAL Differential Comment Erythrocyte Sedimentation Rate 24 mm/hr Prothrombin Time 13.5 SEC Prothromb Time International Ratio 1.2 RATIO Activated Partial Thromboplast Time 25.6 SEC Blood Urea Nitrogen 17 MG/DL 14 MG/DL 12 MG/DL Creatinine 1.03 MG/DL 0.75 MG/DL 0.90 MG/DL Random Glucose 302 MG/DL 47 MG/DL 125 MG/DL Total Protein 6.7 GM/DL 5.4 GM/DL 5.8 GM/DL Albumin 2.2 GM/DL 1.7 GM/DL 1.7 GM/DL Calcium Level 8.7 MG/DL 7.6 MG/DL 7.9 MG/DL Magnesium Level 1.9 MG/DL 1.6 MG/DL Alkaline Phosphatase 179 U/L 141 U/L 185 U/L Aspartate Amino Transf (AST/SGOT) 24 U/L 11 U/L 22 U/L Alanine Aminotransferase (ALT/SGPT) 18 U/L 12 U/L 18 U/L Total Bilirubin 0.5 MG/DL 0.3 MG/DL 0.2 MG/DL Sodium Level 134 MEQ/L 138 MEQ/L 135 MEQ/L Potassium Level 5.5 MEQ/L 3.8 MEQ/L 4.1 MEQ/L Chloride Level 102 MEQ/L 108 MEQ/L 102 MEQ/L Carbon Dioxide Level 25.9 MEQ/L 23.1 MEQ/L 24.2 MEQ/L Anion Gap 6 MEQ/L 7 MEQ/L 9 MEQ/L Estimat Glomerular Filtration Rate 76 ML/MIN 109 ML/MIN 88 ML/MIN Lactic Acid Level 1.3 mmol/L C-Reactive Protein 9.20 MG/DL Phosphorus Level 3.2 MG/DL Free Thyroxine 0.93 NG/DL Thyroid Stimulating Hormone 3rd Gen 2.050 uIU/ML Vancomycin Level Trough 7.2 MCG/ML Imaging Last Impressions Aorta w/Runoff CTA 08/04/17 0000 Signed Impressions: Service Date/Time: Friday, August 04, 2017 19:29 - CONCLUSION: 1. Severe atherosclerotic disease. There is a focal short segment high-grade stenosis of the distal left superficial femoral artery. This stenosic segment measures approximately 1 cm in length and represents a change from the prior study. Remaining left lower extremity arterial vessels demonstrate no significant change from the prior exam. 2. Moderate narrowing of the proximal superior mesenteric artery secondary to noncalcified plaque. This finding is stable. 3. Small bilateral pleural effusions with associated compressive atelectasis. Jose Francisco Rogers MD Lower Extremity Ultrasound 08/03/17 1705 Signed Impressions: Service Date/Time: July 17:39 - CONCLUSION: No DVT of the left lower extremity. Jose Francisco Rodriguez MD Foot X-Ray 08/03/17 0000 Signed Impressions: Service Date/Time: July 17:19 - CONCLUSION: 1. Erosive changes along the posterior calcaneus with possible avulsion injury superiorly. MRI pending to assess for infection and trauma. Gustavo Hicks MD Foot MRI 08/03/17 0000 Signed Impressions: Service Date/Time: July 19:20 - CONCLUSION: Large soft tissue ulcer of the heel and with a broad area of osteomyelitis of the posterior calcaneus. The Achilles tendon is ruptured at its insertion. No drainable abscess. Jose Francisco Rodriguez MD Objective Remarks GENERAL: Awake alert oriented talkative and cooperative SKIN: Warm and dry. Left heel with large open wound HEAD: Atraumatic. Normocephalic. EYES: Pupils equal and round. No scleral icterus. No injection or drainage. EOMI ENT: No nasal bleeding or discharge. Mucous membranes pink and moist. Tongue is midline NECK: Trachea midline. No JVD. Supple CARDIOVASCULAR: Regular rate and rhythm. S1-S2 no S3 or S4 RESPIRATORY: No accessory muscle use. Clear to auscultation. Breath sounds equal bilaterally. GASTROINTESTINAL: Abdomen soft, non-tender, nondistended. Hepatic and splenic margins not palpable. MUSCULOSKELETAL: Extremities without clubbing, cyanosis, or edema. No obvious deformities. Left heel large ulcer WITH BLACK AREA NEUROLOGICAL: Awake and alert. No obvious cranial nerve deficits. Motor grossly within normal limits. Five out of 5 muscle strength in the arms and legs. Normal speech. PSYCHIATRIC: Appropriate mood and affect; insight and judgment normal. Medications and IVs Current Medications Sodium Chloride 1,000 ml @ 1,000 mls/hr Q1H IV Last administered on 08/03/17 18:02; Start 08/03/17 at 17:03; Stop 08/03/17 at 18:02; Status DC Vancomycin HCl 1000 mg/Sodium Chloride 250 ml @ 250 mls/hr ONCE ONCE IV Last administered on 08/03/17 19:24; Start 08/03/17 at 17:15; Stop 08/03/17 at 18:14 ; Status DC Piperacillin Sod/ Tazobactam Sod 50 ml @ 100 mls/hr ONCE ONCE IV Last administered on 08/03/17 18:02; Start 08/03/17 at 17:15; Stop 08/03/17 at 17:44 ; Status DC Insulin Human Regular (NovoLIN R INJ) 5 units ONCE ONCE IV PUSH ; Start at 19:00; Stop 08/03/17 at 19:01; Status DC Sodium Polystyrene Sulfonate (Kayexalate Liq) 15 gm ONCE ONCE PO Last administered on 08/03/17 20:19; Start 08/03/17 at 19:00; Stop 08/03/17 at 19:01 ; Status DC Sodium Chloride 1,000 ml @ 1,000 mls/hr Q1H IV Last administered on 08/03/17 20:19; Start 08/03/17 at 19:01; Stop 08/03/17 at 20:00; Status DC Dextrose (D50w (Syr) Inj) 50 ml UNSCH PRN IV PUSH HYPOGLYCEMIA-SEE COMMENTS; Start 08/03/17 at 19:30 Glucagon (Glucagon Inj) 1 mg UNSCH PRN OTHER HYPOGLYCEMIA-SEE COMMENTS; Start 08/03/17 at 19:30 Insulin Aspart (NovoLOG SUPPLEMENTAL SCALE) 1 ACHS SLIDING SCALE SQ Last administered on 08/05/17 08:00; Start 08/03/17 at 21:00 Pharmacy Profile Note 0 ml @ 0 mls/hr UNSCH OTHER ; Start 08/03/17 at 19:30 Cefepime HCl 1000 mg/Sodium Chloride 100 ml @ 200 mls/hr DAILY IV Last administered on 08/05/17 08:13; Start 08/04/17 at 09:00 Sodium Chloride 1,000 ml @ 100 mls/hr Q10H IV Last administered on 08/05/17 09:12; Start 08/03/17 at 19:30 Sodium Chloride (NS Flush) 2 ml UNSCH PRN IV FLUSH FLUSH AFTER USING IV ACCESS Last administered on 08/04/17 02:54; Start 08/03/17 at 19:30 Sodium Chloride (NS Flush) 2 ml BID IV FLUSH Last administered on 08/05/17 08: 19; Start 08/03/17 at 21:00 Ondansetron HCl (Zofran Inj) 4 mg Q6H PRN IVP NAUSEA OR VOMITING Last administered on 08/03/17 21:08; Start 08/03/17 at 19:30 Heparin Sodium (Porcine) (Heparin Inj) 5,000 units Q12H SQ Last administered on 08/05/17 08:18; Start 08/04/17 at 09:00 Acetaminophen (Tylenol) 650 mg Q6H PRN PO FEVER/PAIN SCALE 1 TO 2; Start at 19:30 Acetaminophen/ Hydrocodone Bitart ([place] 5-325 Mg) 1 tab Q4H PRN PO PAIN SCALE 3 TO 5; Start 08/03/17 at 19:30 Morphine Sulfate (Morphine Inj) 2 mg Q3H PRN IV PUSH Pain 6-10 Last administered on 08/05/17 13:23; Start 08/03/17 at 19:30 Senna/Docusate Sodium (Alanna-Colace) 1 tab BID PO Last administered on 08:17; Start 08/03/17 at 21:00 Magnesium Hydroxide (Milk Of Magnesia Liq) 30 ml Q12H PRN PO MILD - MODERATE CONSTIPATION; Start 08/03/17 at 19:30 Sennosides (Senokot) 17.2 mg Q12H PRN PO MODERATE - SEVERE CONSTIPATION; Start 08/03/17 at 19:30 Bisacodyl (Dulcolax Supp) 10 mg DAILY PRN RECTAL SEVERE CONSITIPATION; Start at 19:30 Lactulose (Lactulose Liq) 30 ml DAILY PRN PO SEVERE CONSITIPATION; Start at 19:30 Clopidogrel Bisulfate (Plavix) 75 mg DAILY@1600 PO Last administered on 15:56; Start 08/04/17 at 16:00 Gabapentin (Neurontin) 600 mg QID PO Last administered on 08/05/17 13:18; Start 08/03/17 at 21:00 Insulin Detemir (Levemir Inj) 60 units BID SQ Last administered on 08/05/17 08 :20; Start 08/03/17 at 21:00 Pantoprazole Sodium (Protonix) 40 mg DAILY@1600 PO Last administered on 15:55; Start 08/04/17 at 16:00 Gadodiamide (Omniscan Pf Inj) 18 ml STK-MED ONCE IVCONTRAST Last administered on 08/03/17 19:50; Start 08/03/17 at 19:50; Stop 08/03/17 at 19:51; Status DC Vancomycin HCl 2300 mg/Sodium Chloride 523 ml @ 250 mls/hr NOW ONCE IV Last administered on 08/04/17 00:49; Start 08/03/17 at 21:00; Stop 08/03/17 at 23:05 ; Status DC Vancomycin HCl 1500 mg/Sodium Chloride 515 ml @ 250 mls/hr Q12H IV Last administered on 08/05/17 09:10; Start 08/04/17 at 09:00; Stop 08/05/17 at 09:40 ; Status DC Miscellaneous Information SPECIFIC LAB TO BE DILIP... ONCE ONCE .XX Last administered on 08/05/17 08:45; Start 08/05/17 at 08:45; Stop 08/05/17 at 08:46 ; Status DC Iohexol (Omnipaque 350 Inj) 100 ml STK-MED ONCE IVCONTRAST Last administered on 08/04/17 19:38; Start 08/04/17 at 19:38; Stop 08/04/17 at 19:40; Status DC Vancomycin HCl 1750 mg/Sodium Chloride 517.5 ml @ 257.5 mls/ hr Q12H IV ; Start 08/05/17 at 21:00 Miscellaneous Information SPECIFIC LAB TO BE DILIP... ONCE ONCE .XX ; Start 08/07 at 08:45; Stop 08/07/17 at 08:46 Urinary Catheter: No Vascular Central Line Catheter: No A/P Problem List: (1) Sepsis ICD Code: A41.9 - Sepsis, unspecified organism Status: Acute (2) Osteomyelitis ICD Code: M86.9 - Osteomyelitis, unspecified (3) Hyperkalemia ICD Code: E87.5 - Hyperkalemia (4) HTN (hypertension) ICD Code: I10 - Essential (primary) hypertension (5) DM (diabetes mellitus) ICD Code: E11.9 - Type 2 diabetes mellitus without complications Assessment and Plan 1. Sepsis: HR 110, WBC 25.4, Source-Left Heel Ulcer. S/p Blood Cultures, Vanco/Zosyn in ER. Follow up cultures, continue IV Abx. 2. Osteomyelitis: Left Foot. X-ray w/ erosive changes along posterior calcaneus with possible avulsion injury, MRI Foot with large soft tissue ulcer heal and broad area of osteomyelitis of posterior calcaneus with rupture of Achilles tendon, images reviewed . S/p IV Abx as above, will continue. Consult Podiatry and ID. 3. Hyperkalemia: Mild. K+ 5.5. S/p Insulin/D50 in ER, will repeat in am. 4. HTN: BP 150-160's, likely compounded by pain, optimize pain control, monitor BP. ADD CATAPRES AND HYDRALAZINE FOR BP 5. DM: Sliding scale w/ Accu-Cheks. Resume home Insulin Glycemia monitor blood sugars VASCULAR ISSUES CONSULT VASCULAR SURGERY REGARDING LEFT LOWER EXTREMITY FROM RADIOLOGICAL STUDIES 6. DVT Prophylaxis: Heparin sq 7. Social work for d/c planning as needed A.m. labs continue on current antibiotic treatment VASCULAR SURGERY CONSULT REGARDING LEFT LE Problem Qualifiers (1) Sepsis: Qualified Codes: A41.9 - Sepsis, unspecified organism Piyush Zuluaga DO Aug 05, 2017 14:05
[2017-08-05] MEDS ORDERED: cloNIDine HCL 0.1 MG TAB PO PRN (14:15)
[2017-08-05] MEDS: amLODIPine BESYLATE 5 MG TAB PO SCH ×2 (14:43→23:28)
--- NOTE | 2017-08-05 15:07 | HHI.PR ---
Addendum to Inpatient Note Additional Information Full note to follow Pt seen today around 14[address] Dr Glenda kothari vascular surgeon Renee Garcia MD Aug 05, 2017 15:07
--- NOTE | 2017-08-05 15:24 | PD.VS.CON ---
History of Present Illness Chief Complaint: left heel wound for a few months. Consult Requested by: History of Present Illness 52 year old active smoker with diabetes since 1992 with buttock wound and left heel wound. Patient seen by cyber transport systems specialist for treatment of his left heel wound. Past/Family/Social History Home Medications Reported Medications Gabapentin (Gabapentin) 600 Mg Tab, 600 MG PO QID, #60 TAB 0 Refills 01/24/17 Insulin Detemir Inj (Levemir Inj) 1,000 unit/ 10 ML Vial, 60 UNITS SQ BID for Blood Sugar Management, VIAL 0 Refills Do not mix with any other Insulin. 01/22/17 Clopidogrel (Clopidogrel) 75 Mg Tab, 75 MG PO DAILY@1600 for Blood Clot Prevention, #30 TAB 0 Refills 01/22/17 Hydrocodone-Acetaminophen (Hydrocodone-Acetaminophen) 10-325 mg Tab, 1 TAB PO Q4H Y for PAIN, TAB 0 Refills 01/22/17 Pantoprazole (Pantoprazole) 40 Mg Tab, 40 MG PO DAILY@1600 for Reflux, #30 TAB 0 Refills 01/22/17 Discontinued Reported Medications Lisinopril (Lisinopril) 2.5 Mg Tab, 2.5 MG PO DAILY@1600, #30 TAB 0 Refills 01/22/17 Finasteride (Finasteride) 5 Mg Tab, 5 MG PO DAILY@1600 for Manage Prostate Problems, #30 TAB 0 Refills Do not crush. 01/22/17 Discontinued Scripts Albuterol Neb (Albuterol Neb) 2.5 Mg/3 Ml Neb, 2.5 MG NEB Q4HR NEB Y for SHORTNESS OF BREATH, #60 NEBULE 0 Refills Prov:Helena Hanks MD 02/07/17 Sulfamethoxazole-Trimethoprim (Bactrim DS) 800-160 Mg Tab, 1 TAB PO BID for Infection, #20 TAB 0 Refills Prov:Helena Hanks MD 02/07/17 Penicillin V Potassium (Penicillin V Potassium) 500 Mg Tab, 500 MG PO Q6H for Infection for 10 Days, TAB 0 Refills Prov:Helena Hanks MD 02/07/17 Coded Allergies: *MDRO Multi-Drug Resistant Organism (Verified Adverse Reaction, Unknown, ) MRSA (arm wound) - 01/2016 MRSA (blood, urine, wound) - 06/2013 Physical Exam Vitals/I&O Date Time Temp Pulse Resp B/P (MAP) Pulse Ox O2 Delivery O2 Flow Rate FiO2 08/05/17 12:00 98.9 116 19 189/85 (119) 96 08/05/17 09:00 97.8 108 19 164/87 (112) 96 08/05/17 04:00 98.8 114 18 179/81 (113) 92 08/05/17 00:00 99.2 114 18 167/76 (106) 93 08/04/17 20:00 100.8 124 18 123/57 (79) 92 08/04/17 16:00 99.0 120 15 139/91 (107) 92 08/05/17 08/05/17 08/05/17 07:00 15:00 23:00 Intake Total 615 ml Balance 615 ml Neuro: intact Neck: supple Heart: regular Lungs: CTA Abdomen: protuberant. Vascular: phasic signals bilateral DP and PT. Difficulty palpating with swelling. Left sahara with 4x3 cm approximate eschar. Laboratory Tests Test 08/05/17 07:17 White Blood Count 21.3 Red Blood Count 3.65 Hemoglobin 8.5 Hematocrit 26.5 Mean Corpuscular Volume 72.6 Mean Corpuscular Hemoglobin 23.2 Mean Corpuscular Hemoglobin Concent 31.9 Red Cell Distribution Width 18.8 Platelet Count 498 Mean Platelet Volume 7.8 Neutrophils (%) (Auto) 79.1 Lymphocytes (%) (Auto) 12.1 Monocytes (%) (Auto) 6.3 Eosinophils (%) (Auto) 1.5 Basophils (%) (Auto) 1.0 Neutrophils # (Auto) 16.9 Lymphocytes # (Auto) 2.6 Monocytes # (Auto) 1.3 Eosinophils # (Auto) 0.3 Basophils # (Auto) 0.2 CBC Comment DIFF FINAL Differential Comment Blood Urea Nitrogen 12 Creatinine 0.90 Random Glucose 125 Total Protein 5.8 Albumin 1.7 Calcium Level 7.9 Phosphorus Level 3.2 Magnesium Level 1.6 Alkaline Phosphatase 185 Aspartate Amino Transf (AST/SGOT) 22 Alanine Aminotransferase (ALT/SGPT) 18 Total Bilirubin 0.2 Sodium Level 135 Potassium Level 4.1 Chloride Level 102 Carbon Dioxide Level 24.2 Anion Gap 9 Estimat Glomerular Filtration Rate 88 Free Thyroxine 0.93 Thyroid Stimulating Hormone 3rd Gen 2.050 Vancomycin Level Trough 7.2 Date/Time Source Procedure Growth Status 08/03/17 17:43 Blood Peripheral Aerobic Blood Culture - Preliminary Streptococcus Species Resulted 08/03/17 17:43 Anaerobic Blood Culture - Preliminary Streptococcus Species Resulted 08/03/17 17:42 Wound Foot Gram Stain - Final Resulted 08/03/17 17:42 Wound Culture - Preliminary Yeast-Id To Follow Resulted Last 48 hours Impressions Aorta w/Runoff CTA 08/04/17 0000 Signed Impressions: Service Date/Time: Friday, August 04, 2017 19:29 - CONCLUSION: 1. Severe atherosclerotic disease. There is a focal short segment high-grade stenosis of the distal left superficial femoral artery. This stenosic segment measures approximately 1 cm in length and represents a change from the prior study. Remaining left lower extremity arterial vessels demonstrate no significant change from the prior exam. 2. Moderate narrowing of the proximal superior mesenteric artery secondary to noncalcified plaque. This finding is stable. 3. Small bilateral pleural effusions with associated compressive atelectasis. Jose Francisco Rogers MD Lower Extremity Ultrasound 08/03/17 1705 Signed Impressions: Service Date/Time: July 17:39 - CONCLUSION: No DVT of the left lower extremity. Jose Francisco Rodriguez MD Assessment and Plan Assessment: (1) Diabetic ulcer of heel Status: Acute Plan Patient with a chronic diabetic left heel ulcer that is extensive.. Treatment with offloading (patient with heel on ground in chair) Antibiotics. Vascular evaluation CTA pending. HgbA1c needed. Smoking cessation. Consult appreciated. Diego Esquivel DO, FACS Problem Qualifiers (1) Diabetic ulcer of heel: Qualified Codes: E13.621 - Other specified diabetes mellitus with foot ulcer; L97.429 - Non-pressure chronic ulcer of left heel and midfoot with unspecified severity Diego Esquivel DO Aug 05, 2017 15:24
[2017-08-05] MEDS: PANTOPRAZOLE SOD 40 MG DELAYED RELEASE TAB PO SCH (16:49)
[2017-08-05] MEDS: CLOPIDOGREL 75 MG TAB PO SCH (16:50)
--- NOTE | 2017-08-05 19:34 | RADRPT ---
EXAM DATE/TIME: 08/05/2017 18:22 [facility] COMPARISON: No previous studies available for comparison. INDICATIONS : Bypass surgery. MEDICAL HISTORY : Hypercholesterolemia. Chronic obstructive pulmonary disease. Gastroesophageal reflux disease. Blind. Neck pain. Neuropathy. Numbness. Arthritis. Hiatal hernia. Diabetes. Squamous cell/basal skin cancer. MRSA. SURGICAL HISTORY : Teeth removed. Blood clot removed from right arm. Left leg wound debridement. D & C right thigh. ENCOUNTER: Subsequent ACUITY: 1 day PAIN SCORE: 3/10 LOCATION: Bilateral legs. GREATER SAPHENOUS VEIN THIGH: PROXIMAL: Right 7 mm Left 8 mm MID: Right 3 mm Left 5 mm DISTAL: Right 3 mm Left 3 mm CALF: PROXIMAL: Right 2 mm Left 3 mm MID: Right 2 mm Left 2 mm DISTAL: Right 2 mm Left 2 mm FINDINGS: The venous system of the lower extremities are patent by color Doppler imaging. Measurements of the leg veins (in mm) are listed above. CONCLUSION: Venous mapping study as described. Stone Sexton MD on August 05, 2017 at 19:33 Board Certified Radiologist. This report was verified electronically.
--- NOTE | 2017-08-05 19:34 | RADRPT ---
EXAM DATE/TIME: 08/05/2017 18:13 [facility] COMPARISON: US LEG BILATERAL VENOUS DOPPLER, January 22, 2017, 23:01. INDICATIONS : Bypass graft. MEDICAL HISTORY : Hypercholesterolemia. Gastroesophageal reflux disease. Chronic obstructive pulmonary disease. Blind. Neck pain. Neuropathy. Numbness. Arthritis. Hiatal hernia. Diabetes. Squamous cell/basal skin cancer. MRSA. SURGICAL HISTORY : Teeth removed. Blood clot removed from right arm. Left leg wound debridement. D & C right thigh. ENCOUNTER: Subsequent ACUITY: 1 day PAIN SCORE: 3/10 LOCATION: Bilateral legs. TECHNIQUE: Venous ultrasound of the left and right leg was performed from the inguinal ligament to the proximal calf. Real-time, color Doppler and spectral tracing, compression and augmentation techniques were us ed. FINDINGS: RIGHT LEG: There is normal compressibility of the deep venous system from the inguinal region to the proximal ca lf. No echogenic clot is seen in the lumen of the common femoral, femoral, popliteal, and posterior tibial veins. There is a normal response of the venous system to proximal and distal augmentation an d respiration. LEFT LEG: There is normal compressibility of the deep venous system from the inguinal region to the proximal ca lf. No echogenic clot is seen in the lumen of the common femoral, femoral, popliteal, and posterior tibial veins. There is a normal response of the venous system to proximal and distal augmentation an d respiration. CONCLUSION: Negative exam with no evidence of deep venous thrombosis. Stone Sexton MD on August 05, 2017 at 19:32 Board Certified Radiologist. This report was verified electronically.
[2017-08-05] MEDS ORDERED: NIFEdipine 30 MG SUSTAINED RELEASE TAB PO ONE (20:00)
[2017-08-05] MEDS ORDERED: VANCOMYCIN INJ 1,750 MG in SODIUM CHLORID 0.9% 500 ML INJ 500 ML IV SCH (21:00)
[2017-08-05] MEDS: hydrALAZINE HCL 25 MG TAB PO SCH (22:00)
--- NOTE | 2017-08-05 22:46 | HHI.IDPN ---
Subjective Subjective Remarks delayed entry Pt seen today around 1440 CTA results noted: severe disease is present pt is afebrile no new c/o all blood clx are growing strep spp Antibiotics cefepime vanco Allergies: Coded Allergies: *MDRO Multi-Drug Resistant Organism (Verified Adverse Reaction, Unknown, ) MRSA (arm wound) - 01/2016 MRSA (blood, urine, wound) - 06/2013 Objective . Vital Signs Date Time Temp Pulse Resp B/P (MAP) Pulse Ox O2 Delivery O2 Flow Rate FiO2 08/05/17 17:54 102 08/05/17 16:00 98.1 113 19 147/64 (91) 97 08/05/17 12:00 98.9 116 19 189/85 (119) 96 08/05/17 09:00 97.8 108 19 164/87 (112) 96 08/05/17 04:00 98.8 114 18 179/81 (113) 92 08/05/17 00:00 99.2 114 18 167/76 (106) 93 08/05/17 08/05/17 08/06/17 15:00 23:00 07:00 Intake Total 1095 ml Output Total 900 ml Balance 195 ml Intake Oral 480 ml IV Total 615 ml Output Urine Total 900 ml # Bowel Movements 1 . Laboratory Tests Test 08/04/17 05:43 08/05/17 07:17 White Blood Count 24.9 TH/MM3 21.3 TH/MM3 Red Blood Count 3.46 MIL/MM3 3.65 MIL/MM3 Hemoglobin 8.0 GM/DL 8.5 GM/DL Hematocrit 25.5 % 26.5 % Mean Corpuscular Volume 73.8 FL 72.6 FL Mean Corpuscular Hemoglobin 23.1 PG 23.2 PG Mean Corpuscular Hemoglobin Concent 31.3 % 31.9 % Red Cell Distribution Width 19.3 % 18.8 % Platelet Count 472 TH/MM3 498 TH/MM3 Mean Platelet Volume 7.3 FL 7.8 FL Neutrophils (%) (Auto) 79.2 % 79.1 % Lymphocytes (%) (Auto) 13.0 % 12.1 % Monocytes (%) (Auto) 6.2 % 6.3 % Eosinophils (%) (Auto) 0.4 % 1.5 % Basophils (%) (Auto) 1.2 % 1.0 % Neutrophils # (Auto) 19.7 TH/MM3 16.9 TH/MM3 Lymphocytes # (Auto) 3.2 TH/MM3 2.6 TH/MM3 Monocytes # (Auto) 1.6 TH/MM3 1.3 TH/MM3 Eosinophils # (Auto) 0.1 TH/MM3 0.3 TH/MM3 Basophils # (Auto) 0.3 TH/MM3 0.2 TH/MM3 CBC Comment DIFF FINAL DIFF FINAL Differential Comment Laboratory Tests Test 08/04/17 05:43 08/05/17 07:17 Blood Urea Nitrogen 14 MG/DL 12 MG/DL Creatinine 0.75 MG/DL 0.90 MG/DL Random Glucose 47 MG/DL 125 MG/DL Total Protein 5.4 GM/DL 5.8 GM/DL Albumin 1.7 GM/DL 1.7 GM/DL Calcium Level 7.6 MG/DL 7.9 MG/DL Alkaline Phosphatase 141 U/L 185 U/L Aspartate Amino Transf (AST/SGOT) 11 U/L 22 U/L Alanine Aminotransferase (ALT/SGPT) 12 U/L 18 U/L Total Bilirubin 0.3 MG/DL 0.2 MG/DL Sodium Level 138 MEQ/L 135 MEQ/L Potassium Level 3.8 MEQ/L 4.1 MEQ/L Chloride Level 108 MEQ/L 102 MEQ/L Carbon Dioxide Level 23.1 MEQ/L 24.2 MEQ/L Anion Gap 7 MEQ/L 9 MEQ/L Estimat Glomerular Filtration Rate 109 ML/MIN 88 ML/MIN Phosphorus Level 3.2 MG/DL Magnesium Level 1.6 MG/DL Free Thyroxine 0.93 NG/DL Thyroid Stimulating Hormone 3rd Gen 2.050 uIU/ML Microbiology Date/Time Source Procedure Growth Status 08/03/17 17:43 Blood Peripheral Aerobic Blood Culture - Preliminary Streptococcus Species Resulted 08/03/17 17:43 Anaerobic Blood Culture - Preliminary Streptococcus Species Resulted 08/03/17 17:37 Blood Peripheral Aerobic Blood Culture - Preliminary Streptococcus Species Resulted 08/03/17 17:37 Anaerobic Blood Culture - Preliminary Streptococcus Species Resulted 08/03/17 17:42 Wound Foot Gram Stain - Final Resulted 08/03/17 17:42 Wound Culture - Preliminary Yeast-Id To Follow Resulted Imaging Last Impressions Lower Extremity Ultrasound 08/05/17 0000 Signed Impressions: Service Date/Time: Monday, August 05, 2017 18:13 - CONCLUSION: Negative exam with no evidence of deep venous thrombosis. Stone Sexton MD Aorta w/Runoff CTA 08/04/17 0000 Signed Impressions: Service Date/Time: Friday, August 04, 2017 19:29 - CONCLUSION: 1. Severe atherosclerotic disease. There is a focal short segment high-grade stenosis of the distal left superficial femoral artery. This stenosic segment measures approximately 1 cm in length and represents a change from the prior study. Remaining left lower extremity arterial vessels demonstrate no significant change from the prior exam. 2. Moderate narrowing of the proximal superior mesenteric artery secondary to noncalcified plaque. This finding is stable. 3. Small bilateral pleural effusions with associated compressive atelectasis. Jose Francisco Rogers MD Foot X-Ray 08/03/17 0000 Signed Impressions: Service Date/Time: July 17:19 - CONCLUSION: 1. Erosive changes along the posterior calcaneus with possible avulsion injury superiorly. MRI pending to assess for infection and trauma. Gustavo Hicks MD Foot MRI 08/03/17 0000 Signed Impressions: Service Date/Time: , August 03, 2017 19:20 - CONCLUSION: Large soft tissue ulcer of the heel and with a broad area of osteomyelitis of the posterior calcaneus. The Achilles tendon is ruptured at its insertion. No drainable abscess. Jose Francisco Rodriguez MD Physical Exam CONSTITUTIONAL/GENERAL: This is an adequately nourished patient, in no apparent distress. TUBES/LINES/DRAINS: SKIN: No jaundice, rashes, or lesions. CARDIOVASCULAR: Regular rate and rhythm without murmurs, gallops, or rubs. No JVD. Peripheral pulses symmetric. RESPIRATORY/CHEST: Symmetric, unlabored respirations. Clear to auscultation. Breath sounds equal bilaterally. No wheezes, rales, or rhonchi. GASTROINTESTINAL: Abdomen soft, non-tender, nondistended. No hepato-splenomegaly , or palpable masses. No guarding. Bowel sounds present. MUSCULOSKELETAL: Extremities without clubbing, cyanosis, or edema. L heel is necrotic with unstagible but @ least stage 3 decubitus with erythematous rim about 2 cm - unchanged NEUROLOGICAL: Awake and alert. Motor and sensory grossly within normal limits. Follows commands. Clear speech Moves all extremities. PSYCHIATRIC: No obvious anxiety/depression. no apparent hallucinations or other psychotic thought process. Assessment & Plan Remarks DFI, dry gangrene L heel COnfirmed underlying vascular insufficiency Gram positive bactermia, sepsis 2/2 DFI HIgh grade strep bactermeia dc vancomycin satart zosyn arteriogram and endovascular intervention early next week. will need repeat blood clx, 2 D echo Renee Garcia MD Aug 05, 2017 22:46
[2017-08-05] MEDS: PIPERACIL-TAZO 3.375 GM PREMIX 50 ML IV SCH (23:43)
[2017-08-06] VITALS (7 sets, daily range): BP systolic 120–161; BP diastolic 55–94; PULSE 96–113; RESP 19–21; TEMP 97.1–98.5; O2SAT 93–97
[2017-08-06] MEDS: MORPHINE SULFATE 4 MG/ML INJ IV PUSH PRN ×6 (03:18→23:18)
[2017-08-06] MEDS: PIPERACIL-TAZO 3.375 GM PREMIX 50 ML IV SCH ×4 (05:16→23:17)
[2017-08-06] MEDS: hydrALAZINE HCL 25 MG TAB PO SCH ×3 (05:19→21:27)
[2017-08-06] MEDS: INSULIN ASPART SUPPLEMENTAL SCALE SQ SCH ×4 (08:00→21:00)
[2017-08-06 08:50] LABS: AUTOMATED NEUTROPHIL # 14.9 TH/MM3 (1.8-7.7); BASOPHIL # 0.1 TH/MM3 (0-0.2); BASOPHIL % 0.5 % (0.0-2.0); EOSINOPHIL # 0.2 TH/MM3 (0-0.4); EOSINOPHIL % 1.2 % (0.0-4.0); HEMATOCRIT 23.2 % (39.0-51.0); HEMO FLAGS DIFF FINAL; LYMPH % 10.9 % (9.0-44.0); MEAN CELL VOLUME 71.7 FL (80.0-100.0); MEAN CORPUSCULAR HEMOGLOBIN 23.1 PG (27.0-34.0); MEAN CORPUSCULAR HGB CONC 32.2 % (32.0-36.0); MONO % 5.5 % (0.0-8.0); NEUT % 81.9 % (16.0-70.0); PLATELET COUNT 448 TH/MM3 (150-450); RED BLOOD COUNT 3.23 MIL/MM3 (4.50-5.90); RED CELL DISTRIBUTION WIDTH 18.9 % (11.6-17.2); WHITE BLOOD COUNT 18.3 TH/MM3 (4.0-11.0)
[2017-08-06] MEDS: INSULIN DETEMIR 100 UNITS/ML VIAL SQ SCH ×2 (09:00→21:00)
[2017-08-06] MEDS: SODIUM CHLORIDE 0.9% FLUSH 10 ML FLUSH IV FLUSH SCH ×2 (09:00→21:00)
[2017-08-06 09:09] LABS: ANION GAP 6 MEQ/L (5-15); AST (GOT) 18 U/L (15-37); BICARBONATE 25.9 MEQ/L (21.0-32.0); BLOOD UREA NITROGEN 13 MG/DL (7-18); CHLORIDE 106 MEQ/L (98-107); GLOMERULAR FILTRATION RATE 94 ML/MIN (>89); MAGNESIUM 1.9 MG/DL (1.5-2.5); POTASSIUM 3.7 MEQ/L (3.5-5.1); SODIUM (NA) 138 MEQ/L (136-145)
[2017-08-06 09:17] LABS: ALKALINE PHOSPHATASE 166 U/L (45-117); ALT (GPT) 17 U/L (12-78); TOTAL BILIRUBIN ADULT 0.2 MG/DL (0.2-1.0)
[2017-08-06] MEDS: GABAPENTIN 300 MG CAP PO SCH ×4 (09:40→21:27)
[2017-08-06] MEDS: HEPARIN SODIUM - SQ 10,000 UNITS/ML VIAL SQ SCH ×2 (09:40→21:26)
[2017-08-06] MEDS: DOCUSATE SODIUM 50 MG/SENNA 8.6 MG TAB PO SCH ×2 (09:40→21:26)
[2017-08-06] MEDS: amLODIPine BESYLATE 5 MG TAB PO SCH ×2 (09:40→21:27)
[2017-08-06] MEDS: SODIUM CHLOR 0.9% 1000 ML INJ 1,000 ML IV SCH ×2 (09:49→23:18)
[2017-08-06 11:35] LABS: HEMOGLOBIN A1a 2.7 %; HEMOGLOBIN A1b 0.9 %; HEMOGLOBIN Ao 77.4 %; HEMOGLOBIN F 1.9 %; HEMOGLOBIN LA1C 2.2 %; HEMOGLOBIN P3 4.6 %
--- NOTE | 2017-08-06 12:17 | HHI.PR ---
Subjective Remarks This is a 52-year-old male with a PMH of HTN, DM, Peripheral Neuropathy, PVD and Chronic Left Foot Ulcer who was referred to the ER by PCP, Dr. Hernandez, for admission and further evaluation of left heel ulcer. Patient with chronic ulcer for the last 4 months, currently under Wound Care, states he recently completed antibiotics for left heel infection, was seen by PCP today and instructed to come to ER. Per pt, progressive pain to left heel especially w/ ambulation, today felt a 'crunch" followed by intense pain. On arrival, BP 126/ 68, HR 110, O2 sat 99% on RA, Afebrile. WBC 25.4. K+ 5.5. Lactic Acid 1.3. INR 1.2. LE Doppler negative for DVT. Foot X-ray w/ erosive changes along posterior calcaneus with possible avulsion injury. MRI Foot with large soft tissue ulcer of the heel with broad area of osteomyelitis of the posterior calcaneus, Achilles tendon ruptured at its insertion. S/p Vanc/Zosyn in ER 08-04 await infectious disease as well as podiatry evaluation No new complaints Is on vancomycin and Zosyn discussed with patient and RN 08-05 RADIOLOGY RESULTS REVIEWED- CONSULT VASCULAR FOR EVAL OF LEFT LE ADJUST BP MEDS 08-06 STREP BOVIS ON MICRO- CONSULT GI DW RN AND PT AND ID- CONSULT GI FOR SURGERY EARLY THIS WEEK REGARDING LEFT LE PER VASCULAR SURGERY AM LABS NEEDS TO KEEP LEFT FOOT FLOATING Objective Vitals Vital Signs Date Time Temp Pulse Resp B/P (MAP) Pulse Ox O2 Delivery O2 Flow Rate FiO2 08/06/17 08:00 98.2 96 20 146/61 (89) 93 08/06/17 05:40 98.5 103 20 161/94 (116) 94 08/06/17 02:30 104 137/65 (89) 95 08/06/17 00:30 97.9 103 19 126/57 (80) 94 08/05/17 23:30 116 145/70 (95) 97 08/05/17 20:51 98.2 110 129/62 (84) 94 08/05/17 17:54 102 08/05/17 16:00 98.1 113 19 147/64 (91) 97 I/O 08/05/17 08/05/17 08/05/17 08/06/17 08/06/1717 07:00 15:00 23:00 07:00 15:00 23:00 Intake Total 1095 ml 500 ml 750 ml 1000 ml Output Total 900 ml Balance 195 ml 500 ml 750 ml 1000 ml Intake Oral 480 ml 500 ml 750 ml IV Total 615 ml 1000 ml Output Urine Total 900 ml # Voids 3 1 2 # Bowel Movements 1 0 0 Result Diagram: 08/06/17 0825 08/06/17 0825 Other Results Laboratory Tests Test 08/03/17 17:37 08/04/17 05:43 08/05/17 07:17 08/06/17 08:25 White Blood Count 25.4 TH/MM3 24.9 TH/MM3 21.3 TH/MM3 18.3 TH/MM3 Red Blood Count 4.17 MIL/MM3 3.46 MIL/MM3 3.65 MIL/MM3 3.23 MIL/MM3 Hemoglobin 9.6 GM/DL 8.0 GM/DL 8.5 GM/DL 7.5 GM/DL Hematocrit 30.6 % 25.5 % 26.5 % 23.2 % Mean Corpuscular Volume 73.3 FL 73.8 FL 72.6 FL 71.7 FL Mean Corpuscular Hemoglobin 23.1 PG 23.1 PG 23.2 PG 23.1 PG Mean Corpuscular Hemoglobin Concent 31.5 % 31.3 % 31.9 % 32.2 % Red Cell Distribution Width 19.4 % 19.3 % 18.8 % 18.9 % Platelet Count 554 TH/MM3 472 TH/MM3 498 TH/MM3 448 TH/MM3 Mean Platelet Volume 7.9 FL 7.3 FL 7.8 FL 7.2 FL Neutrophils (%) (Auto) 83.9 % 79.2 % 79.1 % 81.9 % Lymphocytes (%) (Auto) 8.7 % 13.0 % 12.1 % 10.9 % Monocytes (%) (Auto) 5.1 % 6.2 % 6.3 % 5.5 % Eosinophils (%) (Auto) 1.0 % 0.4 % 1.5 % 1.2 % Basophils (%) (Auto) 1.3 % 1.2 % 1.0 % 0.5 % Neutrophils # (Auto) 21.3 TH/MM3 19.7 TH/MM3 16.9 TH/MM3 14.9 TH/MM3 Lymphocytes # (Auto) 2.2 TH/MM3 3.2 TH/MM3 2.6 TH/MM3 2.0 TH/MM3 Monocytes # (Auto) 1.3 TH/MM3 1.6 TH/MM3 1.3 TH/MM3 1.0 TH/MM3 Eosinophils # (Auto) 0.2 TH/MM3 0.1 TH/MM3 0.3 TH/MM3 0.2 TH/MM3 Basophils # (Auto) 0.3 TH/MM3 0.3 TH/MM3 0.2 TH/MM3 0.1 TH/MM3 CBC Comment DIFF FINAL DIFF FINAL DIFF FINAL DIFF FINAL Differential Comment Erythrocyte Sedimentation Rate 24 mm/hr Prothrombin Time 13.5 SEC Prothromb Time International Ratio 1.2 RATIO Activated Partial Thromboplast Time 25.6 SEC Blood Urea Nitrogen 17 MG/DL 14 MG/DL 12 MG/DL 13 MG/DL Creatinine 1.03 MG/DL 0.75 MG/DL 0.90 MG/DL 0.85 MG/DL Random Glucose 302 MG/DL 47 MG/DL 125 MG/DL 91 MG/DL Total Protein 6.7 GM/DL 5.4 GM/DL 5.8 GM/DL 5.1 GM/DL Albumin 2.2 GM/DL 1.7 GM/DL 1.7 GM/DL 1.5 GM/DL Calcium Level 8.7 MG/DL 7.6 MG/DL 7.9 MG/DL 7.7 MG/DL Magnesium Level 1.9 MG/DL 1.6 MG/DL 1.9 MG/DL Alkaline Phosphatase 179 U/L 141 U/L 185 U/L 166 U/L Aspartate Amino Transf (AST/SGOT) 24 U/L 11 U/L 22 U/L 18 U/L Alanine Aminotransferase (ALT/SGPT) 18 U/L 12 U/L 18 U/L 17 U/L Total Bilirubin 0.5 MG/DL 0.3 MG/DL 0.2 MG/DL 0.2 MG/DL Sodium Level 134 MEQ/L 138 MEQ/L 135 MEQ/L 138 MEQ/L Potassium Level 5.5 MEQ/L 3.8 MEQ/L 4.1 MEQ/L 3.7 MEQ/L Chloride Level 102 MEQ/L 108 MEQ/L 102 MEQ/L 106 MEQ/L Carbon Dioxide Level 25.9 MEQ/L 23.1 MEQ/L 24.2 MEQ/L 25.9 MEQ/L Anion Gap 6 MEQ/L 7 MEQ/L 9 MEQ/L 6 MEQ/L Estimat Glomerular Filtration Rate 76 ML/MIN 109 ML/MIN 88 ML/MIN 94 ML/MIN Lactic Acid Level 1.3 mmol/L C-Reactive Protein 9.20 MG/DL Phosphorus Level 3.2 MG/DL 4.3 MG/DL Free Thyroxine 0.93 NG/DL Thyroid Stimulating Hormone 3rd Gen 2.050 uIU/ML Vancomycin Level Trough 7.2 MCG/ML Imaging Last Impressions Lower Extremity Ultrasound 08/05/17 0000 Signed Impressions: Service Date/Time: Saturday, August 05, 2017 18:13 - CONCLUSION: Negative exam with no evidence of deep venous thrombosis. Stone Sexton MD Aorta w/Runoff CTA 08/04/17 0000 Signed Impressions: Service Date/Time: Friday, August 04, 2017 19:29 - CONCLUSION: 1. Severe atherosclerotic disease. There is a focal short segment high-grade stenosis of the distal left superficial femoral artery. This stenosic segment measures approximately 1 cm in length and represents a change from the prior study. Remaining left lower extremity arterial vessels demonstrate no significant change from the prior exam. 2. Moderate narrowing of the proximal superior mesenteric artery secondary to noncalcified plaque. This finding is stable. 3. Small bilateral pleural effusions with associated compressive atelectasis. Jose Francisco Rogers MD Foot X-Ray 08/03/17 0000 Signed Impressions: Service Date/Time: July 17:19 - CONCLUSION: 1. Erosive changes along the posterior calcaneus with possible avulsion injury superiorly. MRI pending to assess for infection and trauma. Gustavo Hicks MD Foot MRI 08/03/17 0000 Signed Impressions: Service Date/Time: July 19:20 - CONCLUSION: Large soft tissue ulcer of the heel and with a broad area of osteomyelitis of the posterior calcaneus. The Achilles tendon is ruptured at its insertion. No drainable abscess. Jose Francisco Rodriguez MD Objective Remarks GENERAL: Awake alert oriented talkative and cooperative SKIN: Warm and dry. Left heel with large open wound HEAD: Atraumatic. Normocephalic. EYES: Pupils equal and round. No scleral icterus. No injection or drainage. EOMI ENT: No nasal bleeding or discharge. Mucous membranes pink and moist. Tongue is midline NECK: Trachea midline. No JVD. Supple CARDIOVASCULAR: Regular rate and rhythm. S1-S2 no S3 or S4 RESPIRATORY: No accessory muscle use. Clear to auscultation. Breath sounds equal bilaterally. GASTROINTESTINAL: Abdomen soft, non-tender, nondistended. Hepatic and splenic margins not palpable. MUSCULOSKELETAL: Extremities without clubbing, cyanosis, or edema. No obvious deformities. Left heel large ulcer WITH BLACK AREA NEUROLOGICAL: Awake and alert. No obvious cranial nerve deficits. Motor grossly within normal limits. Five out of 5 muscle strength in the arms and legs. Normal speech. PSYCHIATRIC: Appropriate mood and affect; insight and judgment ABnormal. Medications and IVs Current Medications Sodium Chloride 1,000 ml @ 1,000 mls/hr Q1H IV Last administered on 08/03/17 18:02; Start 08/03/17 at 17:03; Stop 08/03/17 at 18:02; Status DC Vancomycin HCl 1000 mg/Sodium Chloride 250 ml @ 250 mls/hr ONCE ONCE IV Last administered on 08/03/17 19:24; Start 08/03/17 at 17:15; Stop 08/03/17 at 18:14 ; Status DC Piperacillin Sod/ Tazobactam Sod 50 ml @ 100 mls/hr ONCE ONCE IV Last administered on 08/03/17 18:02; Start 08/03/17 at 17:15; Stop 08/03/17 at 17:44 ; Status DC Insulin Human Regular (NovoLIN R INJ) 5 units ONCE ONCE IV PUSH ; Start at 19:00; Stop 08/03/17 at 19:01; Status DC Sodium Polystyrene Sulfonate (Kayexalate Liq) 15 gm ONCE ONCE PO Last administered on 08/03/17 20:19; Start 08/03/17 at 19:00; Stop 08/03/17 at 19:01 ; Status DC Sodium Chloride 1,000 ml @ 1,000 mls/hr Q1H IV Last administered on 08/03/17 20:19; Start 08/03/17 at 19:01; Stop 08/03/17 at 20:00; Status DC Dextrose (D50w (Syr) Inj) 50 ml UNSCH PRN IV PUSH HYPOGLYCEMIA-SEE COMMENTS; Start 08/03/17 at 19:30 Glucagon (Glucagon Inj) 1 mg UNSCH PRN OTHER HYPOGLYCEMIA-SEE COMMENTS; Start 08/03/17 at 19:30 Insulin Aspart (NovoLOG SUPPLEMENTAL SCALE) 1 ACHS SLIDING SCALE SQ Last administered on 08/05/17 08:00; Start 08/03/17 at 21:00 Pharmacy Profile Note 0 ml @ 0 mls/hr UNSCH OTHER ; Start 08/03/17 at 19:30; Stop 08/05/17 at 22:48; Status DC Cefepime HCl 1000 mg/Sodium Chloride 100 ml @ 200 mls/hr DAILY IV Last administered on 08/05/17 08:13; Start 08/04/17 at 09:00; Stop 08/05/17 at 22:48 ; Status DC Sodium Chloride 1,000 ml @ 100 mls/hr Q10H IV Last administered on 08/06/17 09:49; Start 08/03/17 at 19:30 Sodium Chloride (NS Flush) 2 ml UNSCH PRN IV FLUSH FLUSH AFTER USING IV ACCESS Last administered on 08/04/17 02:54; Start 08/03/17 at 19:30 Sodium Chloride (NS Flush) 2 ml BID IV FLUSH Last administered on 08/06/17 09: 00; Start 08/03/17 at 21:00 Ondansetron HCl (Zofran Inj) 4 mg Q6H PRN IVP NAUSEA OR VOMITING Last administered on 08/03/17 21:08; Start 08/03/17 at 19:30 Heparin Sodium (Porcine) (Heparin Inj) 5,000 units Q12H SQ Last administered on 08/06/17 09:40; Start 08/04/17 at 09:00 Acetaminophen (Tylenol) 650 mg Q6H PRN PO FEVER/PAIN SCALE 1 TO 2; Start at 19:30 Acetaminophen/ Hydrocodone Bitart (Nicasio 5-325 Mg) 1 tab Q4H PRN PO PAIN SCALE 3 TO 5; Start 08/03/17 at 19:30 Morphine Sulfate (Morphine Inj) 2 mg Q3H PRN IV PUSH Pain 6-10 Last administered on 08/06/17 09:47; Start 08/03/17 at 19:30 Senna/Docusate Sodium (Alanna-Colace) 1 tab BID PO Last administered on 09:40; Start 08/03/17 at 21:00 Magnesium Hydroxide (Milk Of Magnesia Liq) 30 ml Q12H PRN PO MILD - MODERATE CONSTIPATION; Start 08/03/17 at 19:30 Sennosides (Senokot) 17.2 mg Q12H PRN PO MODERATE - SEVERE CONSTIPATION; Start 08/03/17 at 19:30 Bisacodyl (Dulcolax Supp) 10 mg DAILY PRN RECTAL SEVERE CONSITIPATION; Start at 19:30 Lactulose (Lactulose Liq) 30 ml DAILY PRN PO SEVERE CONSITIPATION; Start at 19:30 Clopidogrel Bisulfate (Plavix) 75 mg DAILY@1600 PO Last administered on 16:50; Start 08/04/17 at 16:00 Gabapentin (Neurontin) 600 mg QID PO Last administered on 08/06/17 09:40; Start 08/03/17 at 21:00 Insulin Detemir (Levemir Inj) 60 units BID SQ Last administered on 08/05/17 22 :15; Start 08/03/17 at 21:00 Pantoprazole Sodium (Protonix) 40 mg DAILY@1600 PO Last administered on 16:49; Start 08/04/17 at 16:00 Gadodiamide (Omniscan Pf Inj) 18 ml STK-MED ONCE IVCONTRAST Last administered on 08/03/17 19:50; Start 08/03/17 at 19:50; Stop 08/03/17 at 19:51; Status DC Vancomycin HCl 2300 mg/Sodium Chloride 523 ml @ 250 mls/hr NOW ONCE IV Last administered on 08/04/17 00:49; Start 08/03/17 at 21:00; Stop 08/03/17 at 23:05 ; Status DC Vancomycin HCl 1500 mg/Sodium Chloride 515 ml @ 250 mls/hr Q12H IV Last administered on 08/05/17 09:10; Start 08/04/17 at 09:00; Stop 08/05/17 at 09:40 ; Status DC Miscellaneous Information SPECIFIC LAB TO BE DILIP... ONCE ONCE .XX Last administered on 08/05/17 08:45; Start 08/05/17 at 08:45; Stop 08/05/17 at 08:46 ; Status DC Iohexol (Omnipaque 350 Inj) 100 ml STK-MED ONCE IVCONTRAST Last administered on 08/04/17 19:38; Start 08/04/17 at 19:38; Stop 08/04/17 at 19:40; Status DC Vancomycin HCl 1750 mg/Sodium Chloride 517.5 ml @ 257.5 mls/ hr Q12H IV Last administered on 08/05/17 22:15; Start 08/05/17 at 21:00; Stop 08/05/17 at 22:48 ; Status DC Miscellaneous Information SPECIFIC LAB TO BE DILIP... ONCE ONCE .XX ; Start 08/07 at 08:45; Stop 08/07/17 at 08:46 Amlodipine Besylate (Norvasc) 5 mg BID PO Last administered on 08/06/17 09:40 ; Start 08/05/17 at 14:15 Clonidine (Catapres) 0.1 mg Q4H PRN PO SBP>160, DBP>90; Start 08/05/17 at 14:15 Hydralazine HCl (Apresoline) 25 mg Q8HR PO Last administered on 08/06/17 05:19 ; Start 08/05/17 at 22:00 Nifedipine (Procardia Xl) 30 mg NOW ONCE PO Last administered on 08/05/17 20: 53; Start 08/05/17 at 20:00; Stop 08/05/17 at 20:01; Status DC Piperacillin Sod/ Tazobactam Sod 50 ml @ 100 mls/hr Q6H IV Last administered on 08/06/17 12:05; Start 08/05/17 at 23:00 Urinary Catheter: No Vascular Central Line Catheter: No A/P Problem List: (1) Sepsis ICD Code: A41.9 - Sepsis, unspecified organism Status: Acute (2) Osteomyelitis ICD Code: M86.9 - Osteomyelitis, unspecified (3) Hyperkalemia ICD Code: E87.5 - Hyperkalemia (4) HTN (hypertension) ICD Code: I10 - Essential (primary) hypertension (5) DM (diabetes mellitus) ICD Code: E11.9 - Type 2 diabetes mellitus without complications Assessment and Plan 1. Sepsis: HR 110, WBC 25.4, Source-Left Heel Ulcer. S/p Blood Cultures, Vanco/Zosyn in ER. Follow up cultures, continue IV Abx. 2. Osteomyelitis: Left Foot. X-ray w/ erosive changes along posterior calcaneus with possible avulsion injury, MRI Foot with large soft tissue ulcer heal and broad area of osteomyelitis of posterior calcaneus with rupture of Achilles tendon, images reviewed . S/p IV Abx as above, will continue. Consult Podiatry and ID. 3. Hyperkalemia: Mild. K+ 5.5. S/p Insulin/D50 in ER, will repeat in am. 4. HTN: BP 150-160's, likely compounded by pain, optimize pain control, monitor BP. ADD CATAPRES AND HYDRALAZINE FOR BP 5. DM: Sliding scale w/ Accu-Cheks. Resume home Insulin Glycemia monitor blood sugars VASCULAR ISSUES CONSULT VASCULAR SURGERY REGARDING LEFT LOWER EXTREMITY FROM RADIOLOGICAL STUDIES- TO HAVE VASCULAR PROCEDURE LATER THIS WEEK 6. DVT Prophylaxis: Heparin sq 7. Social work for d/c planning as needed A.m. labs continue on current antibiotic treatment VASCULAR SURGERY CONSULT REGARDING LEFT LE- TO HAVE VASCULAR PROCEDURE THIS WEEK STREP BOVIS CONSULT GI MARY ANN RN AND PT AND ID Problem Qualifiers (1) Sepsis: Qualified Codes: A41.9 - Sepsis, unspecified organism Piyush Zuluaga DO Aug 06, 2017 12:17
--- NOTE | 2017-08-06 12:42 | HHI.IDPN ---
Subjective Subjective Remarks doing OK afebrile Growing Strep bovis in all 4 bottles Pt had coloniscopy [address] Agarwal He had copule polyps at that time, that were removed denies bowel habits change or blood per rectum Antibiotics zosyn Allergies: Coded Allergies: *MDRO Multi-Drug Resistant Organism (Verified Adverse Reaction, Unknown, ) MRSA (arm wound) - 01/2016 MRSA (blood, urine, wound) - 06/2013 Objective . Vital Signs Date Time Temp Pulse Resp B/P (MAP) Pulse Ox O2 Delivery O2 Flow Rate FiO2 08/06/17 08:00 98.2 96 20 146/61 (89) 93 08/06/17 05:40 98.5 103 20 161/94 (116) 94 08/06/17 02:30 104 137/65 (89) 95 08/06/17 00:30 97.9 103 19 126/57 (80) 94 08/05/17 23:30 116 145/70 (95) 97 08/05/17 20:51 98.2 110 129/62 (84) 94 08/05/17 17:54 102 08/05/17 16:00 98.1 113 19 147/64 (91) 97 08/06/17 08/06/17 08/07/17 15:00 23:00 07:00 Intake Total 1000 ml Balance 1000 ml IV Total 1000 ml . Laboratory Tests Test 08/05/17 07:17 08/06/17 08:25 White Blood Count 21.3 TH/MM3 18.3 TH/MM3 Red Blood Count 3.65 MIL/MM3 3.23 MIL/MM3 Hemoglobin 8.5 GM/DL 7.5 GM/DL Hematocrit 26.5 % 23.2 % Mean Corpuscular Volume 72.6 FL 71.7 FL Mean Corpuscular Hemoglobin 23.2 PG 23.1 PG Mean Corpuscular Hemoglobin Concent 31.9 % 32.2 % Red Cell Distribution Width 18.8 % 18.9 % Platelet Count 498 TH/MM3 448 TH/MM3 Mean Platelet Volume 7.8 FL 7.2 FL Neutrophils (%) (Auto) 79.1 % 81.9 % Lymphocytes (%) (Auto) 12.1 % 10.9 % Monocytes (%) (Auto) 6.3 % 5.5 % Eosinophils (%) (Auto) 1.5 % 1.2 % Basophils (%) (Auto) 1.0 % 0.5 % Neutrophils # (Auto) 16.9 TH/MM3 14.9 TH/MM3 Lymphocytes # (Auto) 2.6 TH/MM3 2.0 TH/MM3 Monocytes # (Auto) 1.3 TH/MM3 1.0 TH/MM3 Eosinophils # (Auto) 0.3 TH/MM3 0.2 TH/MM3 Basophils # (Auto) 0.2 TH/MM3 0.1 TH/MM3 CBC Comment DIFF FINAL DIFF FINAL Differential Comment Laboratory Tests Test 08/05/17 07:17 08/06/17 08:25 Blood Urea Nitrogen 12 MG/DL 13 MG/DL Creatinine 0.90 MG/DL 0.85 MG/DL Random Glucose 125 MG/DL 91 MG/DL Total Protein 5.8 GM/DL 5.1 GM/DL Albumin 1.7 GM/DL 1.5 GM/DL Calcium Level 7.9 MG/DL 7.7 MG/DL Phosphorus Level 3.2 MG/DL 4.3 MG/DL Magnesium Level 1.6 MG/DL 1.9 MG/DL Alkaline Phosphatase 185 U/L 166 U/L Aspartate Amino Transf (AST/SGOT) 22 U/L 18 U/L Alanine Aminotransferase (ALT/SGPT) 18 U/L 17 U/L Total Bilirubin 0.2 MG/DL 0.2 MG/DL Sodium Level 135 MEQ/L 138 MEQ/L Potassium Level 4.1 MEQ/L 3.7 MEQ/L Chloride Level 102 MEQ/L 106 MEQ/L Carbon Dioxide Level 24.2 MEQ/L 25.9 MEQ/L Anion Gap 9 MEQ/L 6 MEQ/L Estimat Glomerular Filtration Rate 88 ML/MIN 94 ML/MIN Free Thyroxine 0.93 NG/DL Thyroid Stimulating Hormone 3rd Gen 2.050 uIU/ML Microbiology Date/Time Source Procedure Growth Status 08/06/17 11:20 Blood Peripheral Aerobic Blood Culture Pending Received 08/06/17 11:20 Blood Peripheral Anaerobic Blood Culture Pending Received 08/06/17 11:14 Blood Peripheral Aerobic Blood Culture Pending Received 08/06/17 11:14 Blood Peripheral Anaerobic Blood Culture Pending Received 08/03/17 17:43 Blood Peripheral Aerobic Blood Culture - Final Streptococcus Bovis Complete 08/03/17 17:43 Anaerobic Blood Culture - Final Streptococcus Bovis Complete 08/03/17 17:37 Blood Peripheral Aerobic Blood Culture - Final Streptococcus Bovis Complete 08/03/17 17:37 Anaerobic Blood Culture - Final Streptococcus Bovis Complete 08/03/17 17:42 Wound Foot Gram Stain - Final Resulted 08/03/17 17:42 Wound Culture - Preliminary Yeast-Id To Follow Resulted Imaging Last Impressions Lower Extremity Ultrasound 08/05/17 0000 Signed Impressions: Service Date/Time: Saturday, August 05, 2017 18:13 - CONCLUSION: Negative exam with no evidence of deep venous thrombosis. Stone Sexton MD Aorta w/Runoff CTA 08/04/17 0000 Signed Impressions: Service Date/Time: Friday, August 04, 2017 19:29 - CONCLUSION: 1. Severe atherosclerotic disease. There is a focal short segment high-grade stenosis of the distal left superficial femoral artery. This stenosic segment measures approximately 1 cm in length and represents a change from the prior study. Remaining left lower extremity arterial vessels demonstrate no significant change from the prior exam. 2. Moderate narrowing of the proximal superior mesenteric artery secondary to noncalcified plaque. This finding is stable. 3. Small bilateral pleural effusions with associated compressive atelectasis. Jose Francisco Rogers MD Foot X-Ray 08/03/17 0000 Signed Impressions: Service Date/Time: July 17:19 - CONCLUSION: 1. Erosive changes along the posterior calcaneus with possible avulsion injury superiorly. MRI pending to assess for infection and trauma. Gustavo Hicks MD Foot MRI 08/03/17 0000 Signed Impressions: Service Date/Time: July 19:20 - CONCLUSION: Large soft tissue ulcer of the heel and with a broad area of osteomyelitis of the posterior calcaneus. The Achilles tendon is ruptured at its insertion. No drainable abscess. Jose Francisco Rodriguez MD Physical Exam CONSTITUTIONAL/GENERAL: This is an adequately nourished patient, in no apparent distress. TUBES/LINES/DRAINS: SKIN: No jaundice, rashes, or lesions. CARDIOVASCULAR: Regular rate and rhythm without murmurs, gallops, or rubs. RESPIRATORY/CHEST: Symmetric, unlabored respirations. Clear to auscultation. Breath sounds equal bilaterally. No wheezes, rales, or rhonchi. GASTROINTESTINAL: Abdomen soft, non-tender, nondistended. No hepato-splenomegaly , or palpable masses. No guarding. Bowel sounds present. MUSCULOSKELETAL: Extremities without clubbing, cyanosis, or edema. L heel is necrotic with unstagible but @ least stage 3 decubitus with erythematous rim about 2 cm - unchanged NEUROLOGICAL: Awake and alert. Motor and sensory grossly within normal limits. Follows commands. Clear speech Moves all extremities. PSYCHIATRIC: No obvious anxiety/depression. no apparent hallucinations or other psychotic thought process. Assessment & Plan Remarks DFI, dry gangrene L heel COnfirmed underlying vascular insufficiency HIgh grade strep bovis bactermeia - r/o endocarditis - ro colonic pathology cont zosyn - consult Dr Agarwal arteriogram and endovascular intervention early next week. will need repeat blood clx, 2 D echo and if 2 D echo negative will chk [place] dw Renee Caruso MD Aug 06, 2017 12:42
--- NOTE | 2017-08-06 15:51 | ECHRPT ---
Indication: vegetation CONCLUSIONS Limited echo The left ventricular systolic function is normal with an estimated ejection fraction in the range of 55-60%. Severe mitral valve regurgitation. Severe mitral annular calcification. There is moderate tricuspid regurgitation. The estimated pulmonary arterial pressure is 43.2 mmHg. No definitive vegetation seen. BP: 120 / 55 HR: 76 Rhythm: MEASUREMENTS (Male / Female) Normal Values Technical Quality: DOPPLER TR Peak Velocity 288.0 cm/s TR Peak Gradient 33.2 mmHg Right Atrial Pressure 10.0 mmHg Pulmonary Artery Systolic Pressu 43.2 mmHg Right Ventricular Systolic Press 43.2 mmHg FINDINGS LEFT VENTRICLE The left ventricular systolic function is normal with an estimated ejection fraction in the range of 55-60%. MITRAL VALVE Severe mitral valve regurgitation. Severe mitral annular calcification. TRICUSPID VALVE There is moderate tricuspid regurgitation. The estimated pulmonary arterial pressure is 43.2 mmHg. Chandler Gatica MD (Electronically Signed) Final Date:06 August 2017 15:50
[2017-08-06] MEDS: CLOPIDOGREL 75 MG TAB PO SCH (17:00)
[2017-08-06] MEDS: PANTOPRAZOLE SOD 40 MG DELAYED RELEASE TAB PO SCH (17:01)
--- NOTE | 2017-08-06 22:17 | HHI.PR ---
Addendum to Inpatient Note Addendum Reason: Additional Documentation Additional Information I will be off August [address] Ramirez is covering for me Renee Garcia MD Aug 06, 2017 22:17
[2017-08-07 00:04] VITALS: BP 133/72; PULSE 111; RESP 18; TEMP 98; O2SAT 95
[2017-08-07] MEDS: SODIUM CHLOR 0.9% 1000 ML INJ 1,000 ML IV SCH ×3 (03:30→22:32)
[2017-08-07] MEDS: PIPERACIL-TAZO 3.375 GM PREMIX 50 ML IV SCH ×2 (04:12→10:21)
[2017-08-07] MEDS: MORPHINE SULFATE 4 MG/ML INJ IV PUSH PRN (04:14)
[2017-08-07] MEDS: hydrALAZINE HCL 25 MG TAB PO SCH ×3 (05:26→22:27)
[2017-08-07] MEDS: INSULIN ASPART SUPPLEMENTAL SCALE SQ SCH ×4 (07:49→22:26)
[2017-08-07 08:00] VITALS: PULSE 112
[2017-08-07 08:09] VITALS: BP 158/72; PULSE 115; RESP 20; TEMP 98.7; O2SAT 92
[2017-08-07] MEDS: amLODIPine BESYLATE 5 MG TAB PO SCH ×2 (08:38→22:27)
[2017-08-07] MEDS: ACETAMINOPHEN/HYDROcodone 325 MG/5 MG TAB PO PRN ×3 (08:38→22:36)
[2017-08-07] MEDS: GABAPENTIN 300 MG CAP PO SCH ×4 (08:38→22:28)
[2017-08-07] MEDS: DOCUSATE SODIUM 50 MG/SENNA 8.6 MG TAB PO SCH ×2 (08:38→22:28)
[2017-08-07] MEDS: INSULIN DETEMIR 100 UNITS/ML VIAL SQ SCH ×2 (08:38→22:24)
[2017-08-07] MEDS: HEPARIN SODIUM - SQ 10,000 UNITS/ML VIAL SQ SCH ×3 (08:38→22:23)
[2017-08-07] MEDS: SODIUM CHLORIDE 0.9% FLUSH 10 ML FLUSH IV FLUSH SCH ×2 (08:39→22:22)
[2017-08-07] MEDS ORDERED: PHARMACY ORDERED LAB ONE (08:45)
--- NOTE | 2017-08-07 09:28 | HHI.PR ---
Subjective Remarks This is a 52-year-old male with a PMH of HTN, DM, Peripheral Neuropathy, PVD and Chronic Left Foot Ulcer who was referred to the ER by PCP, Dr. Hernandez, for admission and further evaluation of left heel ulcer. Patient with chronic ulcer for the last 4 months, currently under Wound Care, states he recently completed antibiotics for left heel infection, was seen by PCP today and instructed to come to ER. Per pt, progressive pain to left heel especially w/ ambulation, today felt a 'crunch" followed by intense pain. On arrival, BP 126/ 68, HR 110, O2 sat 99% on RA, Afebrile. WBC 25.4. K+ 5.5. Lactic Acid 1.3. INR 1.2. LE Doppler negative for DVT. Foot X-ray w/ erosive changes along posterior calcaneus with possible avulsion injury. MRI Foot with large soft tissue ulcer of the heel with broad area of osteomyelitis of the posterior calcaneus, Achilles tendon ruptured at its insertion. S/p Vanc/Zosyn in ER 08-04 await infectious disease as well as podiatry evaluation No new complaints Is on vancomycin and Zosyn discussed with patient and RN 08-05 RADIOLOGY RESULTS REVIEWED- CONSULT VASCULAR FOR EVAL OF LEFT LE ADJUST BP MEDS 08-06 STREP BOVIS ON MICRO- CONSULT GI DW RN AND PT AND ID- CONSULT GI FOR SURGERY EARLY THIS WEEK REGARDING LEFT LE PER VASCULAR SURGERY AM LABS NEEDS TO KEEP LEFT FOOT FLOATING 08-07 TO GO FOR PROCEDURE ON LEFT LE TODAY WITH VASCULAR SURGERY NO NEW COMPLAINTS MONITOR ANEMIA--IS ON FLUIDS MAY BE DILUTIONAL AM LABS DW RN AND PT Objective Vitals Vital Signs Date Time Temp Pulse Resp B/P (MAP) Pulse Ox O2 Delivery O2 Flow Rate FiO2 08/07/17 08:09 98.7 115 20 158/72 (100) 92 08/07/17 07:49 18 08/07/17 00:04 98.0 111 18 133/72 (92) 95 08/06/17 20:00 98.4 113 21 152/72 (98) 97 08/06/17 16:00 98.2 109 20 126/64 (84) 93 08/06/17 12:00 97.1 111 20 120/55 (76) 96 I/O 08/06/17 08/06/17 08/06/17 08/07/17 08/07/17 9/25/17 07:00 15:00 23:00 07:00 15:00 23:00 Intake Total 750 ml 1050 ml 960 ml Output Total 1600 ml 550 ml Balance 750 ml 1050 ml 960 ml -1600 ml -550 ml Intake Oral 750 ml 960 ml IV Total 1050 ml Output Urine Total 1600 ml 550 ml # Voids 2 2 # Bowel Movements 0 0 0 Result Diagram: 08/06/17 0825 08/06/17 0825 Other Results Laboratory Tests Test 08/05/17 07:17 08/06/17 08:25 White Blood Count 21.3 TH/MM3 18.3 TH/MM3 Red Blood Count 3.65 MIL/MM3 3.23 MIL/MM3 Hemoglobin 8.5 GM/DL 7.5 GM/DL Hematocrit 26.5 % 23.2 % Mean Corpuscular Volume 72.6 FL 71.7 FL Mean Corpuscular Hemoglobin 23.2 PG 23.1 PG Mean Corpuscular Hemoglobin Concent 31.9 % 32.2 % Red Cell Distribution Width 18.8 % 18.9 % Platelet Count 498 TH/MM3 448 TH/MM3 Mean Platelet Volume 7.8 FL 7.2 FL Neutrophils (%) (Auto) 79.1 % 81.9 % Lymphocytes (%) (Auto) 12.1 % 10.9 % Monocytes (%) (Auto) 6.3 % 5.5 % Eosinophils (%) (Auto) 1.5 % 1.2 % Basophils (%) (Auto) 1.0 % 0.5 % Neutrophils # (Auto) 16.9 TH/MM3 14.9 TH/MM3 Lymphocytes # (Auto) 2.6 TH/MM3 2.0 TH/MM3 Monocytes # (Auto) 1.3 TH/MM3 1.0 TH/MM3 Eosinophils # (Auto) 0.3 TH/MM3 0.2 TH/MM3 Basophils # (Auto) 0.2 TH/MM3 0.1 TH/MM3 CBC Comment DIFF FINAL DIFF FINAL Differential Comment Blood Urea Nitrogen 12 MG/DL 13 MG/DL Creatinine 0.90 MG/DL 0.85 MG/DL Random Glucose 125 MG/DL 91 MG/DL Total Protein 5.8 GM/DL 5.1 GM/DL Albumin 1.7 GM/DL 1.5 GM/DL Calcium Level 7.9 MG/DL 7.7 MG/DL Phosphorus Level 3.2 MG/DL 4.3 MG/DL Magnesium Level 1.6 MG/DL 1.9 MG/DL Alkaline Phosphatase 185 U/L 166 U/L Aspartate Amino Transf (AST/SGOT) 22 U/L 18 U/L Alanine Aminotransferase (ALT/SGPT) 18 U/L 17 U/L Total Bilirubin 0.2 MG/DL 0.2 MG/DL Sodium Level 135 MEQ/L 138 MEQ/L Potassium Level 4.1 MEQ/L 3.7 MEQ/L Chloride Level 102 MEQ/L 106 MEQ/L Carbon Dioxide Level 24.2 MEQ/L 25.9 MEQ/L Anion Gap 9 MEQ/L 6 MEQ/L Estimat Glomerular Filtration Rate 88 ML/MIN 94 ML/MIN Hemoglobin A1c 10.2 % Free Thyroxine 0.93 NG/DL Thyroid Stimulating Hormone 3rd Gen 2.050 uIU/ML Vancomycin Level Trough 7.2 MCG/ML Imaging Last Impressions Lower Extremity Ultrasound 08/05/17 0000 Signed Impressions: Service Date/Time: Saturday, August 05, 2017 18:13 - CONCLUSION: Negative exam with no evidence of deep venous thrombosis. Stone Sexton MD Aorta w/Runoff CTA 08/04/17 0000 Signed Impressions: Service Date/Time: Friday, August 04, 2017 19:29 - CONCLUSION: 1. Severe atherosclerotic disease. There is a focal short segment high-grade stenosis of the distal left superficial femoral artery. This stenosic segment measures approximately 1 cm in length and represents a change from the prior study. Remaining left lower extremity arterial vessels demonstrate no significant change from the prior exam. 2. Moderate narrowing of the proximal superior mesenteric artery secondary to noncalcified plaque. This finding is stable. 3. Small bilateral pleural effusions with associated compressive atelectasis. Jose Francisco Rogers MD Foot X-Ray 08/03/17 0000 Signed Impressions: Service Date/Time: July 17:19 - CONCLUSION: 1. Erosive changes along the posterior calcaneus with possible avulsion injury superiorly. MRI pending to assess for infection and trauma. Gustavo Hicks MD Foot MRI 08/03/17 0000 Signed Impressions: Service Date/Time: July 19:20 - CONCLUSION: Large soft tissue ulcer of the heel and with a broad area of osteomyelitis of the posterior calcaneus. The Achilles tendon is ruptured at its insertion. No drainable abscess. Jose Francisco Rodriguez MD Objective Remarks GENERAL: Awake alert oriented talkative and cooperative SKIN: Warm and dry. Left heel with large open wound HEAD: Atraumatic. Normocephalic. EYES: Pupils equal and round. No scleral icterus. No injection or drainage. EOMI ENT: No nasal bleeding or discharge. Mucous membranes pink and moist. Tongue is midline NECK: Trachea midline. No JVD. Supple CARDIOVASCULAR: Regular rate and rhythm. S1-S2 no S3 or S4 RESPIRATORY: No accessory muscle use. Clear to auscultation. Breath sounds equal bilaterally. GASTROINTESTINAL: Abdomen soft, non-tender, nondistended. Hepatic and splenic margins not palpable. MUSCULOSKELETAL: Extremities without clubbing, cyanosis, or edema. No obvious deformities. Left heel large ulcer WITH BLACK AREA NEUROLOGICAL: Awake and alert. No obvious cranial nerve deficits. Motor grossly within normal limits. 4 out of 5 muscle strength in the arms and legs. Normal speech. PSYCHIATRIC: Appropriate mood and affect; insight and judgment ABnormal. Medications and IVs Current Medications Sodium Chloride 1,000 ml @ 1,000 mls/hr Q1H IV Last administered on 08/03/17 18:02; Start 08/03/17 at 17:03; Stop 08/03/17 at 18:02; Status DC Vancomycin HCl 1000 mg/Sodium Chloride 250 ml @ 250 mls/hr ONCE ONCE IV Last administered on 08/03/17 19:24; Start 08/03/17 at 17:15; Stop 08/03/17 at 18:14 ; Status DC Piperacillin Sod/ Tazobactam Sod 50 ml @ 100 mls/hr ONCE ONCE IV Last administered on 08/03/17 18:02; Start 08/03/17 at 17:15; Stop 08/03/17 at 17:44 ; Status DC Insulin Human Regular (NovoLIN R INJ) 5 units ONCE ONCE IV PUSH ; Start at 19:00; Stop 08/03/17 at 19:01; Status DC Sodium Polystyrene Sulfonate (Kayexalate Liq) 15 gm ONCE ONCE PO Last administered on 08/03/17 20:19; Start 08/03/17 at 19:00; Stop 08/03/17 at 19:01 ; Status DC Sodium Chloride 1,000 ml @ 1,000 mls/hr Q1H IV Last administered on 08/03/17 20:19; Start 08/03/17 at 19:01; Stop 08/03/17 at 20:00; Status DC Dextrose (D50w (Syr) Inj) 50 ml UNSCH PRN IV PUSH HYPOGLYCEMIA-SEE COMMENTS; Start 08/03/17 at 19:30 Glucagon (Glucagon Inj) 1 mg UNSCH PRN OTHER HYPOGLYCEMIA-SEE COMMENTS; Start 08/03/17 at 19:30 Insulin Aspart (NovoLOG SUPPLEMENTAL SCALE) 1 ACHS SLIDING SCALE SQ Last administered on 08/06/17 21:00; Start 08/03/17 at 21:00 Pharmacy Profile Note 0 ml @ 0 mls/hr UNSCH OTHER ; Start 08/03/17 at 19:30; Stop 08/05/17 at 22:48; Status DC Cefepime HCl 1000 mg/Sodium Chloride 100 ml @ 200 mls/hr DAILY IV Last administered on 08/05/17 08:13; Start 08/04/17 at 09:00; Stop 08/05/17 at 22:48 ; Status DC Sodium Chloride 1,000 ml @ 100 mls/hr Q10H IV Last administered on 08/07/17 03:30; Start 08/03/17 at 19:30 Sodium Chloride (NS Flush) 2 ml UNSCH PRN IV FLUSH FLUSH AFTER USING IV ACCESS Last administered on 08/04/17 02:54; Start 08/03/17 at 19:30 Sodium Chloride (NS Flush) 2 ml BID IV FLUSH Last administered on 08/06/17 09: 00; Start 08/03/17 at 21:00 Ondansetron HCl (Zofran Inj) 4 mg Q6H PRN IVP NAUSEA OR VOMITING Last administered on 08/03/17 21:08; Start 08/03/17 at 19:30 Heparin Sodium (Porcine) (Heparin Inj) 5,000 units Q12H SQ Last administered on 08/06/17 21:26; Start 08/04/17 at 09:00 Acetaminophen (Tylenol) 650 mg Q6H PRN PO FEVER/PAIN SCALE 1 TO 2; Start at 19:30 Acetaminophen/ Hydrocodone Bitart ([place] 5-325 Mg) 1 tab Q4H PRN PO PAIN SCALE 3 TO 5 Last administered on 08/07/17 08:38; Start 08/03/17 at 19:30 Morphine Sulfate (Morphine Inj) 2 mg Q3H PRN IV PUSH Pain 6-10 Last administered on 08/07/17 04:14; Start 08/03/17 at 19:30 Senna/Docusate Sodium (Alanna-Colace) 1 tab BID PO Last administered on 08:38; Start 08/03/17 at 21:00 Magnesium Hydroxide (Milk Of Magnesia Liq) 30 ml Q12H PRN PO MILD - MODERATE CONSTIPATION; Start 08/03/17 at 19:30 Sennosides (Senokot) 17.2 mg Q12H PRN PO MODERATE - SEVERE CONSTIPATION; Start 08/03/17 at 19:30 Bisacodyl (Dulcolax Supp) 10 mg DAILY PRN RECTAL SEVERE CONSITIPATION; Start at 19:30 Lactulose (Lactulose Liq) 30 ml DAILY PRN PO SEVERE CONSITIPATION; Start at 19:30 Clopidogrel Bisulfate (Plavix) 75 mg DAILY@1600 PO Last administered on 17:00; Start 08/04/17 at 16:00 Gabapentin (Neurontin) 600 mg QID PO Last administered on 08/07/17 08:38; Start 08/03/17 at 21:00 Insulin Detemir (Levemir Inj) 60 units BID SQ Last administered on 08/05/17 22 :15; Start 08/03/17 at 21:00 Pantoprazole Sodium (Protonix) 40 mg DAILY@1600 PO Last administered on 17:01; Start 08/04/17 at 16:00 Gadodiamide (Omniscan Pf Inj) 18 ml STK-MED ONCE IVCONTRAST Last administered on 08/03/17 19:50; Start 08/03/17 at 19:50; Stop 08/03/17 at 19:51; Status DC Vancomycin HCl 2300 mg/Sodium Chloride 523 ml @ 250 mls/hr NOW ONCE IV Last administered on 08/04/17 00:49; Start 08/03/17 at 21:00; Stop 08/03/17 at 23:05 ; Status DC Vancomycin HCl 1500 mg/Sodium Chloride 515 ml @ 250 mls/hr Q12H IV Last administered on 08/05/17 09:10; Start 08/04/17 at 09:00; Stop 08/05/17 at 09:40 ; Status DC Miscellaneous Information SPECIFIC LAB TO BE DILIP... ONCE ONCE .XX Last administered on 08/05/17 08:45; Start 08/05/17 at 08:45; Stop 08/05/17 at 08:46 ; Status DC Iohexol (Omnipaque 350 Inj) 100 ml STK-MED ONCE IVCONTRAST Last administered on 08/04/17 19:38; Start 08/04/17 at 19:38; Stop 08/04/17 at 19:40; Status DC Vancomycin HCl 1750 mg/Sodium Chloride 517.5 ml @ 257.5 mls/ hr Q12H IV Last administered on 08/05/17 22:15; Start 08/05/17 at 21:00; Stop 08/05/17 at 22:48 ; Status DC Miscellaneous Information SPECIFIC LAB TO BE DILIP... ONCE ONCE .XX ; Start 08/07 at 08:45; Stop 08/07/17 at 08:45; Status DC Amlodipine Besylate (Norvasc) 5 mg BID PO Last administered on 08/07/17 08:38 ; Start 08/05/17 at 14:15 Clonidine (Catapres) 0.1 mg Q4H PRN PO SBP>160, DBP>90; Start 08/05/17 at 14:15 Hydralazine HCl (Apresoline) 25 mg Q8HR PO Last administered on 08/07/17 05:26 ; Start 08/05/17 at 22:00 Nifedipine (Procardia Xl) 30 mg NOW ONCE PO Last administered on 08/05/17 20: 53; Start 08/05/17 at 20:00; Stop 08/05/17 at 20:01; Status DC Piperacillin Sod/ Tazobactam Sod 50 ml @ 100 mls/hr Q6H IV Last administered on 08/07/17 04:12; Start 08/05/17 at 23:00 Urinary Catheter: No Vascular Central Line Catheter: No A/P Problem List: (1) Sepsis ICD Code: A41.9 - Sepsis, unspecified organism Status: Acute (2) Osteomyelitis ICD Code: M86.9 - Osteomyelitis, unspecified (3) Hyperkalemia ICD Code: E87.5 - Hyperkalemia (4) HTN (hypertension) ICD Code: I10 - Essential (primary) hypertension (5) DM (diabetes mellitus) ICD Code: E11.9 - Type 2 diabetes mellitus without complications Assessment and Plan 1. Sepsis: HR 110, WBC 25.4, Source-Left Heel Ulcer. S/p Blood Cultures, Vanco/Zosyn in ER. Follow up cultures, continue IV Abx. 2. Osteomyelitis: Left Foot. X-ray w/ erosive changes along posterior calcaneus with possible avulsion injury, MRI Foot with large soft tissue ulcer heal and broad area of osteomyelitis of posterior calcaneus with rupture of Achilles tendon, images reviewed . S/p IV Abx as above, will continue. Consult Podiatry and ID. 3. Hyperkalemia: Mild. K+ 5.5. S/p Insulin/D50 in ER, will repeat in am. 4. HTN: BP 150-160's, likely compounded by pain, optimize pain control, monitor BP. ADD CATAPRES AND HYDRALAZINE FOR BP 5. DM: Sliding scale w/ Accu-Cheks. Resume home Insulin Glycemia monitor blood sugars ANEMIA- AM LABS AND MONITOR VASCULAR ISSUES CONSULT VASCULAR SURGERY REGARDING LEFT LOWER EXTREMITY FROM RADIOLOGICAL STUDIES- TO HAVE VASCULAR PROCEDURE LATER THIS WEEK 6. DVT Prophylaxis: Heparin sq 7. Social work for d/c planning as needed A.m. labs continue on current antibiotic treatment VASCULAR SURGERY CONSULT REGARDING LEFT LE- TO HAVE VASCULAR PROCEDURE TODAY IS NPO MARY ANN RN AND PATIENT STREP BOVIS CONSULT GI MARY ANN RN AND PT AND ID Problem Qualifiers (1) Sepsis: Qualified Codes: A41.9 - Sepsis, unspecified organism Piyush Zuluaga DO Aug 07, 2017 09:28
--- NOTE | 2017-08-07 10:22 | MB ---
cc: KINJAL GODINEZ M.D., CHEE Y. MD HORENSTEIN, JOSHUA A. MD DATE OF CONSULTATION: 08/07/2017 DATE OF : 1965 HISTORY OF PRESENT ILLNESS The patient is a 52-year-old white male I was asked to see for further evaluation and management of strep bovis and bacteremia. The patient had significant skin breakdown with decubitus in his sacrum and buttocks as well as in his left lower extremity. For the past four months he has had intermittent shaking chills. His significant heel ulcer on the left has worsened as far as pain and he felt a crunch when he stood on it the other day. He was hospitalized and found to have strep bovis bacteremia. We stopped by the microbiology department and they do not subtype this particular organism to know if it is a type 1 or 2 species. PAST MEDICAL HISTORY 1. Hypertension. 2. Diabetes. 3. Peripheral neuropathy. 4. Peripheral vascular disease. 5. Chronic left foot ulcer. 6. COPD. PAST SURGICAL HISTORY Mostly on his extremities. No surgeries in the abdomen or chest. MEDICATIONS Medications here in the hospital include: 1. Piperacillin/tazobactam. 2. Hydralazine. 3. Amlodipine. 4. Clonidine. 5. Clopidogrel. 6. Pantoprazole 40 mg p.o. daily. 7. Heparin injection. 8. Sliding scale insulin. 9. Alanna-Colace. 10.Neurontin. 11.Levemir. 12.PRN Zofran, Tylenol and Platinum. ALLERGIES No known drug allergies. SOCIAL HISTORY Tobacco use: He still smokes. Alcohol use: None. FAMILY HISTORY He does not know as he is adopted. REVIEW OF SYSTEMS He has had mild recurrence of his dysphagia for solids and liquids at the level of the upper esophageal sphincter. He has a history of cricopharyngeal achalasia last dilated in October 2014 with good results. He has had no recent headaches. No history of seizure or strokes. He denies respiratory difficulties, chest pains, palpitations. He has had no abdominal pain, just some intermittent fullness or pressure. He has had some urinary difficulties with hesitation. He has had no diarrhea or constipation. He has had the chronic dermatologic problems and vascular disease. He knows of no history of thyroid disease, liver disease or pancreatic disease. PHYSICAL EXAMINATION VITAL SIGNS: Weight is 87.1 kg. Temperature 97.1, pulse 111, respiratory rate 20, blood pressure 129/55. GENERAL: He is alert. He is oriented x3. He is somewhat pale-appearing. HEENT: He is anicteric. Extraocular motions are intact. No appreciable submandibular, cervical, supraclavicular, axillary or epitrochlear adenopathy. LUNGS: Clear to auscultation. HEART: Regular rate and rhythm. No gross murmur or gallop. LUNGS: Clear to auscultation. ABDOMEN: Good bowel sounds with no audible bruit. The abdomen is soft. There was transient tenderness in the left upper quadrant but this subsided after initial palpation. No masses or hepatosplenomegaly noted. EXTREMITIES: Mild Dupuytren's contracture on the right and very subtle on the left. No palmar erythema. There is bilateral pedal edema and significant breakdown of the heel on the left foot, as well as other changes in the left lower extremity. LABORATORY STUDIES On August 03 the white count was 25.4, hemoglobin 9.6, platelets 554. As of yesterday white count was 18.3, hemoglobin down to 7.5, platelets 448. INR was 1.2. Yesterday sodium was 138, potassium 3.7, BUN 13, creatinine 0.85. Liver enzymes: Alkaline phosphatase was elevated on August 03 to 179, on August 04 it was 141, and today it is 166. Bilirubin is normal. AST and ALT normal. TSH is normal. IMAGING STUDIES CTA of the abdominal structures revealed no obvious biliary tract abnormalities. The GI tract appeared grossly unremarkable. IMPRESSION/RECOMMENDATIONS 1. Strep bovis bacteremia. This patient has a history of adenomatous colon polyps. His last colonoscopy was performed by me in October 2014. It is possible another polyp has developed. The likelihood of colon cancer is low. Colonoscopy should be performed. We will have to coordinate timing based on whether or not he is having left foot amputation. We discussed the procedure, including potential risks of medication reaction, bleeding, perforation and a small chance of missing a lesion. With his decubitus ulcers, there is a small chance of fecal material contaminating the skin and allowing bacterial entry via the wound. 2. Cricopharyngeal achalasia resulting is recurrent dysphagia. Ideally cold fluids and foods should be avoided. He should drink liquids that are warm before and with pills and meals. We can perform panendoscopy with esophageal dilation at the time of the colonoscopy. He is familiar again with the potential risks of medication reaction, bleeding, perforation and the small chance of missing a lesion. 3. Elevated isolated alkaline phosphatase with normal liver enzymes otherwise. I suspect this likely bony in origin given his severe decubitus disease involving his heel as the bone is likely involved. 4. Will follow along closely. MD JV Grimm/REGGIE /9:49 AM /10:02 AM [email or web address]
[2017-08-07 10:33] LABS: AUTOMATED NEUTROPHIL # 14.6 TH/MM3 (1.8-7.7); BASOPHIL # 0.2 TH/MM3 (0-0.2); BASOPHIL % 1.2 % (0.0-2.0); EOSINOPHIL # 0.6 TH/MM3 (0-0.4); EOSINOPHIL % 3.3 % (0.0-4.0); HEMATOCRIT 29.3 % (39.0-51.0); HEMO FLAGS DIFF FINAL; LYMPH % 12.1 % (9.0-44.0); LYMPHOCYTE # 2.3 TH/MM3 (1.0-4.8); MEAN CELL VOLUME 72.2 FL (80.0-100.0); MEAN CORPUSCULAR HEMOGLOBIN 22.9 PG (27.0-34.0); MEAN CORPUSCULAR HGB CONC 31.6 % (32.0-36.0); MONO % 5.5 % (0.0-8.0); NEUT % 77.9 % (16.0-70.0); PLATELET COUNT 644 TH/MM3 (150-450); RED BLOOD COUNT 4.06 MIL/MM3 (4.50-5.90); WHITE BLOOD COUNT 18.8 TH/MM3 (4.0-11.0)
[2017-08-07 11:05] LABS: ALKALINE PHOSPHATASE 233 U/L (45-117); ALT (GPT) 14 U/L (12-78); ANION GAP 8 MEQ/L (5-15); AST (GOT) 16 U/L (15-37); BICARBONATE 25.2 MEQ/L (21.0-32.0); BLOOD UREA NITROGEN 12 MG/DL (7-18); CHLORIDE 102 MEQ/L (98-107); GLOMERULAR FILTRATION RATE 96 ML/MIN (>89); MAGNESIUM 1.9 MG/DL (1.5-2.5); POTASSIUM 4.3 MEQ/L (3.5-5.1); SODIUM (NA) 135 MEQ/L (136-145); TOTAL BILIRUBIN ADULT 0.3 MG/DL (0.2-1.0)
--- NOTE | 2017-08-07 11:09 | PD.VS.PN ---
Subjective Subjective/Hospital Course nonambulatory today Objective Vitals/I&O Date Time Temp Pulse Resp B/P (MAP) Pulse Ox O2 Delivery O2 Flow Rate FiO2 08/07/17 10:07 18 08/07/17 08:09 98.7 115 20 158/72 (100) 92 08/07/17 07:49 18 08/07/17 00:04 98.0 111 18 133/72 (92) 95 08/06/17 20:00 98.4 113 21 152/72 (98) 97 08/06/17 16:00 98.2 109 20 126/64 (84) 93 08/06/17 12:00 97.1 111 20 120/55 (76) 96 08/07/17 08/07/17 08/07/17 07:00 15:00 23:00 Output Total 1600 ml 550 ml Balance -1600 ml -550 ml Physical Exam left heel with necrotic eschar. Left DP and PT with phasic signals. Laboratory Laboratory Tests Test 08/07/17 09:50 White Blood Count 18.8 Red Blood Count 4.06 Hemoglobin 9.3 Hematocrit 29.3 Mean Corpuscular Volume 72.2 Mean Corpuscular Hemoglobin 22.9 Mean Corpuscular Hemoglobin Concent 31.6 Red Cell Distribution Width 19.0 Platelet Count 644 Mean Platelet Volume 7.4 Neutrophils (%) (Auto) 77.9 Lymphocytes (%) (Auto) 12.1 Monocytes (%) (Auto) 5.5 Eosinophils (%) (Auto) 3.3 Basophils (%) (Auto) 1.2 Neutrophils # (Auto) 14.6 Lymphocytes # (Auto) 2.3 Monocytes # (Auto) 1.0 Eosinophils # (Auto) 0.6 Basophils # (Auto) 0.2 CBC Comment DIFF FINAL Differential Comment Date/Time Source Procedure Growth Status 08/06/17 11:20 Blood Peripheral Aerobic Blood Culture Pending Received 08/06/17 11:20 Blood Peripheral Anaerobic Blood Culture Pending Received 08/03/17 17:42 Wound Foot Gram Stain - Final Complete 08/03/17 17:42 Wound Culture - Final Crystal Tropicalis Complete Assessment and Plan Assessment: (1) Diabetic ulcer of heel Status: Acute Plan Patient with a chronic diabetic left heel ulcer that is extensive.. Pt still with leukocytosis. May benefit from heel debridement before revascularization. Will hold off until kt for revascularization. patient contemplating possible left BKA but would benefit from discussion about chance of healing left heel reconstruction.. Diego Esquivel DO, FACS Problem Qualifiers (1) Diabetic ulcer of heel: Qualified Codes: E13.621 - Other specified diabetes mellitus with foot ulcer; L97.429 - Non-pressure chronic ulcer of left heel and midfoot with unspecified severity Diego Esquivel DO Aug 07, 2017 11:09
[2017-08-07 11:56] LABS: HEMATOCRIT 26.6 % (39.0-51.0)
[2017-08-07 12:17] LABS: ANION GAP 7 MEQ/L (5-15); AST (GOT) 17 U/L (15-37); BLOOD UREA NITROGEN 12 MG/DL (7-18); CHLORIDE 103 MEQ/L (98-107); GLOMERULAR FILTRATION RATE 97 ML/MIN (>89); POTASSIUM 4.4 MEQ/L (3.5-5.1); SODIUM (NA) 135 MEQ/L (136-145)
[2017-08-07 12:18] VITALS: BP 145/68; PULSE 106; RESP 20; TEMP 98.3; O2SAT 96
[2017-08-07 12:26] LABS: ALKALINE PHOSPHATASE 218 U/L (45-117); ALT (GPT) 17 U/L (12-78); TOTAL BILIRUBIN ADULT 0.3 MG/DL (0.2-1.0)
--- NOTE | 2017-08-07 12:48 | HHI.IDPN ---
Note Infectious Disease Note ID COVERAGE FOR DR BURNETTE Vital Signs Date Time Temp Pulse Resp B/P (MAP) Pulse Ox O2 Delivery O2 Flow Rate FiO2 08/07/17 12:18 98.3 106 20 145/68 (93) 96 08/07/17 10:07 18 08/07/17 08:09 98.7 115 20 158/72 (100) 92 08/07/17 07:49 18 08/07/17 00:04 98.0 111 18 133/72 (92) 95 08/06/17 20:00 98.4 113 21 152/72 (98) 97 08/06/17 16:00 98.2 109 20 126/64 (84) 93 Laboratory Tests Test 08/07/17 09:50 08/07/17 11:21 White Blood Count 18.8 TH/MM3 Red Blood Count 4.06 MIL/MM3 Hemoglobin 9.3 GM/DL 8.4 GM/DL Hematocrit 29.3 % 26.6 % Mean Corpuscular Volume 72.2 FL Mean Corpuscular Hemoglobin 22.9 PG Mean Corpuscular Hemoglobin Concent 31.6 % Red Cell Distribution Width 19.0 % Platelet Count 644 TH/MM3 Mean Platelet Volume 7.4 FL Neutrophils (%) (Auto) 77.9 % Lymphocytes (%) (Auto) 12.1 % Monocytes (%) (Auto) 5.5 % Eosinophils (%) (Auto) 3.3 % Basophils (%) (Auto) 1.2 % Neutrophils # (Auto) 14.6 TH/MM3 Lymphocytes # (Auto) 2.3 TH/MM3 Monocytes # (Auto) 1.0 TH/MM3 Eosinophils # (Auto) 0.6 TH/MM3 Basophils # (Auto) 0.2 TH/MM3 CBC Comment DIFF FINAL Differential Comment Blood Urea Nitrogen 12 MG/DL 12 MG/DL Creatinine 0.84 MG/DL 0.83 MG/DL Random Glucose 185 MG/DL 190 MG/DL Total Protein 6.2 GM/DL 5.8 GM/DL Albumin 1.7 GM/DL 1.6 GM/DL Calcium Level 8.1 MG/DL 8.0 MG/DL Phosphorus Level 3.1 MG/DL Magnesium Level 1.9 MG/DL Alkaline Phosphatase 233 U/L 218 U/L Aspartate Amino Transf (AST/SGOT) 16 U/L 17 U/L Alanine Aminotransferase (ALT/SGPT) 14 U/L 17 U/L Total Bilirubin 0.3 MG/DL 0.3 MG/DL Sodium Level 135 MEQ/L 135 MEQ/L Potassium Level 4.3 MEQ/L 4.4 MEQ/L Chloride Level 102 MEQ/L 103 MEQ/L Carbon Dioxide Level 25.2 MEQ/L 25.0 MEQ/L Anion Gap 8 MEQ/L 7 MEQ/L Estimat Glomerular Filtration Rate 96 ML/MIN 97 ML/MIN Laboratory Tests Test 08/06/17 08:25 08/07/17 09:50 08/07/17 11:21 White Blood Count 18.3 TH/MM3 18.8 TH/MM3 Red Blood Count 3.23 MIL/MM3 4.06 MIL/MM3 Hemoglobin 7.5 GM/DL 9.3 GM/DL 8.4 GM/DL Hematocrit 23.2 % 29.3 % 26.6 % Mean Corpuscular Volume 71.7 FL 72.2 FL Mean Corpuscular Hemoglobin 23.1 PG 22.9 PG Mean Corpuscular Hemoglobin Concent 32.2 % 31.6 % Red Cell Distribution Width 18.9 % 19.0 % Platelet Count 448 TH/MM3 644 TH/MM3 Mean Platelet Volume 7.2 FL 7.4 FL Neutrophils (%) (Auto) 81.9 % 77.9 % Lymphocytes (%) (Auto) 10.9 % 12.1 % Monocytes (%) (Auto) 5.5 % 5.5 % Eosinophils (%) (Auto) 1.2 % 3.3 % Basophils (%) (Auto) 0.5 % 1.2 % Neutrophils # (Auto) 14.9 TH/MM3 14.6 TH/MM3 Lymphocytes # (Auto) 2.0 TH/MM3 2.3 TH/MM3 Monocytes # (Auto) 1.0 TH/MM3 1.0 TH/MM3 Eosinophils # (Auto) 0.2 TH/MM3 0.6 TH/MM3 Basophils # (Auto) 0.1 TH/MM3 0.2 TH/MM3 CBC Comment DIFF FINAL DIFF FINAL Differential Comment Laboratory Tests Test 08/06/17 08:25 08/07/17 09:50 08/07/17 11:21 Blood Urea Nitrogen 13 MG/DL 12 MG/DL 12 MG/DL Creatinine 0.85 MG/DL 0.84 MG/DL 0.83 MG/DL Random Glucose 91 MG/DL 185 MG/DL 190 MG/DL Total Protein 5.1 GM/DL 6.2 GM/DL 5.8 GM/DL Albumin 1.5 GM/DL 1.7 GM/DL 1.6 GM/DL Calcium Level 7.7 MG/DL 8.1 MG/DL 8.0 MG/DL Phosphorus Level 4.3 MG/DL 3.1 MG/DL Magnesium Level 1.9 MG/DL 1.9 MG/DL Alkaline Phosphatase 166 U/L 233 U/L 218 U/L Aspartate Amino Transf (AST/SGOT) 18 U/L 16 U/L 17 U/L Alanine Aminotransferase (ALT/SGPT) 17 U/L 14 U/L 17 U/L Total Bilirubin 0.2 MG/DL 0.3 MG/DL 0.3 MG/DL Sodium Level 138 MEQ/L 135 MEQ/L 135 MEQ/L Potassium Level 3.7 MEQ/L 4.3 MEQ/L 4.4 MEQ/L Chloride Level 106 MEQ/L 102 MEQ/L 103 MEQ/L Carbon Dioxide Level 25.9 MEQ/L 25.2 MEQ/L 25.0 MEQ/L Anion Gap 6 MEQ/L 8 MEQ/L 7 MEQ/L Estimat Glomerular Filtration Rate 94 ML/MIN 96 ML/MIN 97 ML/MIN Microbiology Date/Time Source Procedure Growth Status 08/06/17 11:20 Blood Peripheral Aerobic Blood Culture - Preliminary NO GROWTH IN 1 DAY Resulted 08/06/17 11:20 Blood Peripheral Anaerobic Blood Culture - Preliminary NO GROWTH IN 1 DAY Resulted 08/06/17 11:14 Blood Peripheral Aerobic Blood Culture - Preliminary NO GROWTH IN 1 DAY Resulted 08/06/17 11:14 Blood Peripheral Anaerobic Blood Culture - Preliminary NO GROWTH IN 1 DAY Resulted SUBJECTIVE : patient is seen . chart is reviewed . radiology / Labs / micro data reviewed patient has no fever PHYSICAL EXAM : VS - reviewed GENERAL: Patient is in no acute distress. HEENT: EOMI, No icterus. NECK: Supple. LUNGS: Clear breath sounds. CARDIAC: Regular rate and rhythm ABDOMEN: Soft, non tender. EXTREMITIES: No CCE. SKIN: No rash. DRY ESCHAR / DRY GANGRENE LEFT HEEL CLINICAL IMPRESSION High Grade BActeremia due to Streptococcus bovis Possible bacterial Endocarditis - Negative TTE - TTE is insensitive for Endocarditis in this patient with high grade bacteremia PAD DRY ESCHAR / DRY GANGRENE LEFT HEEL RECOMMENDATIONS : Discontinue iv zosyn Start iv Rocephin 2g daily Obtain AUSTEN , to rule in endocarditis - would need cardiology consult Check Blood culture every other day until negative Vascular evaluation and management Will follow Sj Hill MD Aug 07, 2017 12:48
[2017-08-07] MEDS: cefTRIAXone INJ 2,000 MG in SODIUM CHLORIDE 0.9% INJ 100 ML IV SCH (13:15)
[2017-08-07 16:09] VITALS: BP 134/62; PULSE 110; RESP 20; TEMP 97.8; O2SAT 95
[2017-08-07] MEDS: PANTOPRAZOLE SOD 40 MG DELAYED RELEASE TAB PO SCH (16:15)
[2017-08-07] MEDS: CLOPIDOGREL 75 MG TAB PO SCH (16:15)
[2017-08-07] MEDS: MAGNESIUM HYDROXIDE SUSP 30 ML CUP PO PRN (16:42)
[2017-08-07 20:10] VITALS: BP 140/63; PULSE 105; RESP 20; TEMP 97.8; O2SAT 96
[2017-08-08] VITALS (8 sets, daily range): BP systolic 118–140; BP diastolic 56–67; PULSE 84–109; RESP 16–20; TEMP 98.1–99; O2SAT 92–97
[2017-08-08] MEDS: MORPHINE SULFATE 4 MG/ML INJ IV PUSH PRN ×5 (01:32→22:09)
[2017-08-08] MEDS: hydrALAZINE HCL 25 MG TAB PO SCH ×3 (05:50→22:01)
[2017-08-08] MEDS: ACETAMINOPHEN/HYDROcodone 325 MG/5 MG TAB PO PRN ×2 (05:50→20:39)
[2017-08-08] MEDS: INSULIN ASPART SUPPLEMENTAL SCALE SQ SCH ×4 (08:00→21:00)
[2017-08-08] MEDS: SODIUM CHLORIDE 0.9% FLUSH 10 ML FLUSH IV FLUSH SCH ×2 (09:00→20:41)
[2017-08-08] MEDS: INSULIN DETEMIR 100 UNITS/ML VIAL SQ SCH ×2 (09:00→21:00)
[2017-08-08 09:02] LABS: AUTOMATED NEUTROPHIL # 12.2 TH/MM3 (1.8-7.7); BASOPHIL # 0.2 TH/MM3 (0-0.2); BASOPHIL % 1.1 % (0.0-2.0); EOSINOPHIL # 0.8 TH/MM3 (0-0.4); EOSINOPHIL % 4.4 % (0.0-4.0); HEMATOCRIT 23.3 % (39.0-51.0); HEMO FLAGS DIFF FINAL; LYMPH % 18.8 % (9.0-44.0); LYMPHOCYTE # 3.4 TH/MM3 (1.0-4.8); MEAN CELL VOLUME 72.3 FL (80.0-100.0); MEAN CORPUSCULAR HEMOGLOBIN 23.5 PG (27.0-34.0); MEAN CORPUSCULAR HGB CONC 32.4 % (32.0-36.0); MONO % 7.2 % (0.0-8.0); NEUT % 68.5 % (16.0-70.0); PLATELET COUNT 523 TH/MM3 (150-450); RED BLOOD COUNT 3.23 MIL/MM3 (4.50-5.90); RED CELL DISTRIBUTION WIDTH 18.9 % (11.6-17.2); WHITE BLOOD COUNT 17.9 TH/MM3 (4.0-11.0)
[2017-08-08] MEDS: DOCUSATE SODIUM 50 MG/SENNA 8.6 MG TAB PO SCH ×2 (09:10→20:40)
[2017-08-08] MEDS: GABAPENTIN 300 MG CAP PO SCH ×4 (09:10→20:40)
[2017-08-08] MEDS: amLODIPine BESYLATE 5 MG TAB PO SCH ×2 (09:10→20:40)
[2017-08-08] MEDS: HEPARIN SODIUM - SQ 10,000 UNITS/ML VIAL SQ SCH ×2 (09:11→20:41)
[2017-08-08 09:27] LABS: ALT (GPT) 18 U/L (12-78); ANION GAP 8 MEQ/L (5-15); AST (GOT) 16 U/L (15-37); BICARBONATE 25.2 MEQ/L (21.0-32.0); BLOOD UREA NITROGEN 15 MG/DL (7-18); CHLORIDE 105 MEQ/L (98-107); GLOMERULAR FILTRATION RATE 106 ML/MIN (>89); POTASSIUM 4.1 MEQ/L (3.5-5.1); SODIUM (NA) 138 MEQ/L (136-145)
[2017-08-08] MEDS: SODIUM CHLOR 0.9% 1000 ML INJ 1,000 ML IV SCH ×2 (09:30→20:49)
[2017-08-08 09:59] LABS: ALKALINE PHOSPHATASE 198 U/L (45-117); TOTAL BILIRUBIN ADULT 0.1 MG/DL (0.2-1.0)
--- NOTE | 2017-08-08 12:06 | HHI.PR ---
Subjective Remarks This is a 52-year-old male with a PMH of HTN, DM, Peripheral Neuropathy, PVD and Chronic Left Foot Ulcer who was referred to the ER by PCP, Dr. Hernandez, for admission and further evaluation of left heel ulcer. Patient with chronic ulcer for the last 4 months, currently under Wound Care, states he recently completed antibiotics for left heel infection, was seen by PCP today and instructed to come to ER. Per pt, progressive pain to left heel especially w/ ambulation, today felt a 'crunch" followed by intense pain. On arrival, BP 126/ 68, HR 110, O2 sat 99% on RA, Afebrile. WBC 25.4. K+ 5.5. Lactic Acid 1.3. INR 1.2. LE Doppler negative for DVT. Foot X-ray w/ erosive changes along posterior calcaneus with possible avulsion injury. MRI Foot with large soft tissue ulcer of the heel with broad area of osteomyelitis of the posterior calcaneus, Achilles tendon ruptured at its insertion. S/p Vanc/Zosyn in ER 08-04 await infectious disease as well as podiatry evaluation No new complaints Is on vancomycin and Zosyn discussed with patient and RN 08-05 RADIOLOGY RESULTS REVIEWED- CONSULT VASCULAR FOR EVAL OF LEFT LE ADJUST BP MEDS 08-06 STREP BOVIS ON MICRO- CONSULT GI DW RN AND PT AND ID- CONSULT GI FOR SURGERY EARLY THIS WEEK REGARDING LEFT LE PER VASCULAR SURGERY AM LABS NEEDS TO KEEP LEFT FOOT FLOATING 08-07 TO GO FOR PROCEDURE ON LEFT LE TODAY WITH VASCULAR SURGERY NO NEW COMPLAINTS MONITOR ANEMIA--IS ON FLUIDS MAY BE DILUTIONAL AM LABS DW RN AND PT 08-08 POSSIBLY FOR SURGERY TODAY- NPO MONITOR HEMOGLOBIN HAS WEAKNESS BL LE, BOTH LEFT AND RIGHT AM LABS Objective Vitals Vital Signs Date Time Temp Pulse Resp B/P (MAP) Pulse Ox O2 Delivery O2 Flow Rate FiO2 08/08/17 11:00 105 08/08/17 07:01 18 08/08/17 07:00 98.3 84 20 140/64 (89) 94 08/08/17 05:05 98.1 96 20 118/67 (84) 93 08/08/17 02:53 19 08/08/17 02:45 107 08/07/17 20:10 97.8 105 20 140/63 (88) 96 08/07/17 16:09 97.8 110 20 134/62 (86) 95 08/07/17 12:18 98.3 106 20 145/68 (93) 96 I/O 08/07/17 08/07/17 08/07/17 08/08/17 08/08/17 08/08/17 07:00 15:00 23:00 07:00 15:00 23:00 Intake Total 360 ml 650 ml Output Total 1600 ml 550 ml Balance -1600 ml -550 ml 360 ml 650 ml Intake Oral 360 ml IV Total 650 ml Output Urine Total 1600 ml 550 ml # Voids 4 2 # Bowel Movements 0 1 2 2 Result Diagram: 08/08/17 0803 08/08/17 0803 Other Results Laboratory Tests Test 08/06/17 08:25 08/07/17 09:50 08/07/17 11:21 08/08/17 08:03 White Blood Count 18.3 TH/MM3 18.8 TH/MM3 17.9 TH/MM3 Red Blood Count 3.23 MIL/MM3 4.06 MIL/MM3 3.23 MIL/MM3 Hemoglobin 7.5 GM/DL 9.3 GM/DL 8.4 GM/DL 7.6 GM/DL Hematocrit 23.2 % 29.3 % 26.6 % 23.3 % Mean Corpuscular Volume 71.7 FL 72.2 FL 72.3 FL Mean Corpuscular Hemoglobin 23.1 PG 22.9 PG 23.5 PG Mean Corpuscular Hemoglobin Concent 32.2 % 31.6 % 32.4 % Red Cell Distribution Width 18.9 % 19.0 % 18.9 % Platelet Count 448 TH/MM3 644 TH/MM3 523 TH/MM3 Mean Platelet Volume 7.2 FL 7.4 FL 7.4 FL Neutrophils (%) (Auto) 81.9 % 77.9 % 68.5 % Lymphocytes (%) (Auto) 10.9 % 12.1 % 18.8 % Monocytes (%) (Auto) 5.5 % 5.5 % 7.2 % Eosinophils (%) (Auto) 1.2 % 3.3 % 4.4 % Basophils (%) (Auto) 0.5 % 1.2 % 1.1 % Neutrophils # (Auto) 14.9 TH/MM3 14.6 TH/MM3 12.2 TH/MM3 Lymphocytes # (Auto) 2.0 TH/MM3 2.3 TH/MM3 3.4 TH/MM3 Monocytes # (Auto) 1.0 TH/MM3 1.0 TH/MM3 1.3 TH/MM3 Eosinophils # (Auto) 0.2 TH/MM3 0.6 TH/MM3 0.8 TH/MM3 Basophils # (Auto) 0.1 TH/MM3 0.2 TH/MM3 0.2 TH/MM3 CBC Comment DIFF FINAL DIFF FINAL DIFF FINAL Differential Comment Blood Urea Nitrogen 13 MG/DL 12 MG/DL 12 MG/DL 15 MG/DL Creatinine 0.85 MG/DL 0.84 MG/DL 0.83 MG/DL 0.77 MG/DL Random Glucose 91 MG/DL 185 MG/DL 190 MG/DL 70 MG/DL Total Protein 5.1 GM/DL 6.2 GM/DL 5.8 GM/DL 5.4 GM/DL Albumin 1.5 GM/DL 1.7 GM/DL 1.6 GM/DL 1.6 GM/DL Calcium Level 7.7 MG/DL 8.1 MG/DL 8.0 MG/DL 7.8 MG/DL Phosphorus Level 4.3 MG/DL 3.1 MG/DL 2.8 MG/DL Magnesium Level 1.9 MG/DL 1.9 MG/DL 2.0 MG/DL Alkaline Phosphatase 166 U/L 233 U/L 218 U/L 198 U/L Aspartate Amino Transf (AST/SGOT) 18 U/L 16 U/L 17 U/L 16 U/L Alanine Aminotransferase (ALT/SGPT) 17 U/L 14 U/L 17 U/L 18 U/L Total Bilirubin 0.2 MG/DL 0.3 MG/DL 0.3 MG/DL 0.1 MG/DL Sodium Level 138 MEQ/L 135 MEQ/L 135 MEQ/L 138 MEQ/L Potassium Level 3.7 MEQ/L 4.3 MEQ/L 4.4 MEQ/L 4.1 MEQ/L Chloride Level 106 MEQ/L 102 MEQ/L 103 MEQ/L 105 MEQ/L Carbon Dioxide Level 25.9 MEQ/L 25.2 MEQ/L 25.0 MEQ/L 25.2 MEQ/L Anion Gap 6 MEQ/L 8 MEQ/L 7 MEQ/L 8 MEQ/L Estimat Glomerular Filtration Rate 94 ML/MIN 96 ML/MIN 97 ML/MIN 106 ML/MIN Imaging Last Impressions Lower Extremity Ultrasound 08/05/17 0000 Signed Impressions: Service Date/Time: Saturday, August 05, 2017 18:13 - CONCLUSION: Negative exam with no evidence of deep venous thrombosis. Stone Sexton MD Aorta w/Runoff CTA 08/04/17 0000 Signed Impressions: Service Date/Time: Friday, August 04, 2017 19:29 - CONCLUSION: 1. Severe atherosclerotic disease. There is a focal short segment high-grade stenosis of the distal left superficial femoral artery. This stenosic segment measures approximately 1 cm in length and represents a change from the prior study. Remaining left lower extremity arterial vessels demonstrate no significant change from the prior exam. 2. Moderate narrowing of the proximal superior mesenteric artery secondary to noncalcified plaque. This finding is stable. 3. Small bilateral pleural effusions with associated compressive atelectasis. Jose Francisco Rogers MD Foot X-Ray 08/03/17 0000 Signed Impressions: Service Date/Time: July 17:19 - CONCLUSION: 1. Erosive changes along the posterior calcaneus with possible avulsion injury superiorly. MRI pending to assess for infection and trauma. Gustavo Hicks MD Foot MRI 08/03/17 0000 Signed Impressions: Service Date/Time: July 19:20 - CONCLUSION: Large soft tissue ulcer of the heel and with a broad area of osteomyelitis of the posterior calcaneus. The Achilles tendon is ruptured at its insertion. No drainable abscess. Jose Francisco Rodriguez MD Objective Remarks GENERAL: Awake alert oriented talkative and cooperative SKIN: Warm and dry. Left heel with large open wound HEAD: Atraumatic. Normocephalic. EYES: Pupils equal and round. No scleral icterus. No injection or drainage. EOMI ENT: No nasal bleeding or discharge. Mucous membranes pink and moist. Tongue is midline NECK: Trachea midline. No JVD. Supple CARDIOVASCULAR: Regular rate and rhythm. S1-S2 no S3 or S4 RESPIRATORY: No accessory muscle use. Clear to auscultation. Breath sounds equal bilaterally. GASTROINTESTINAL: Abdomen soft, non-tender, nondistended. Hepatic and splenic margins not palpable. MUSCULOSKELETAL: Extremities without clubbing, cyanosis, or edema. No obvious deformities. Left heel large ulcer WITH BLACK AREA NEUROLOGICAL: Awake and alert. No obvious cranial nerve deficits. Motor grossly within normal limits. 4 out of 5 muscle strength in the arms and legs. Normal speech. PSYCHIATRIC: Appropriate mood and affect; insight and judgment ABnormal. Medications and IVs Current Medications Sodium Chloride 1,000 ml @ 1,000 mls/hr Q1H IV Last administered on 08/03/17 18:02; Start 08/03/17 at 17:03; Stop 08/03/17 at 18:02; Status DC Vancomycin HCl 1000 mg/Sodium Chloride 250 ml @ 250 mls/hr ONCE ONCE IV Last administered on 08/03/17 19:24; Start 08/03/17 at 17:15; Stop 08/03/17 at 18:14 ; Status DC Piperacillin Sod/ Tazobactam Sod 50 ml @ 100 mls/hr ONCE ONCE IV Last administered on 08/03/17 18:02; Start 08/03/17 at 17:15; Stop 08/03/17 at 17:44 ; Status DC Insulin Human Regular (NovoLIN R INJ) 5 units ONCE ONCE IV PUSH ; Start at 19:00; Stop 08/03/17 at 19:01; Status DC Sodium Polystyrene Sulfonate (Kayexalate Liq) 15 gm ONCE ONCE PO Last administered on 08/03/17 20:19; Start 08/03/17 at 19:00; Stop 08/03/17 at 19:01 ; Status DC Sodium Chloride 1,000 ml @ 1,000 mls/hr Q1H IV Last administered on 08/03/17 20:19; Start 08/03/17 at 19:01; Stop 08/03/17 at 20:00; Status DC Dextrose (D50w (Syr) Inj) 50 ml UNSCH PRN IV PUSH HYPOGLYCEMIA-SEE COMMENTS; Start 08/03/17 at 19:30 Glucagon (Glucagon Inj) 1 mg UNSCH PRN OTHER HYPOGLYCEMIA-SEE COMMENTS; Start 08/03/17 at 19:30 Insulin Aspart (NovoLOG SUPPLEMENTAL SCALE) 1 ACHS SLIDING SCALE SQ Last administered on 08/07/17 22:26; Start 08/03/17 at 21:00 Pharmacy Profile Note 0 ml @ 0 mls/hr UNSCH OTHER ; Start 08/03/17 at 19:30; Stop 08/05/17 at 22:48; Status DC Cefepime HCl 1000 mg/Sodium Chloride 100 ml @ 200 mls/hr DAILY IV Last administered on 08/05/17 08:13; Start 08/04/17 at 09:00; Stop 08/05/17 at 22:48 ; Status DC Sodium Chloride 1,000 ml @ 100 mls/hr Q10H IV Last administered on 08/08/17 09:30; Start 08/03/17 at 19:30 Sodium Chloride (NS Flush) 2 ml UNSCH PRN IV FLUSH FLUSH AFTER USING IV ACCESS Last administered on 08/04/17 02:54; Start 08/03/17 at 19:30 Sodium Chloride (NS Flush) 2 ml BID IV FLUSH Last administered on 08/07/17 22: 22; Start 08/03/17 at 21:00 Ondansetron HCl (Zofran Inj) 4 mg Q6H PRN IVP NAUSEA OR VOMITING Last administered on 08/03/17 21:08; Start 08/03/17 at 19:30 Heparin Sodium (Porcine) (Heparin Inj) 5,000 units Q12H SQ Last administered on 08/08/17 09:11; Start 08/04/17 at 09:00 Acetaminophen (Tylenol) 650 mg Q6H PRN PO FEVER/PAIN SCALE 1 TO 2; Start at 19:30 Acetaminophen/ Hydrocodone Bitart (Shidler 5-325 Mg) 1 tab Q4H PRN PO PAIN SCALE 3 TO 5 Last administered on 08/08/17 05:50; Start 08/03/17 at 19:30 Morphine Sulfate (Morphine Inj) 2 mg Q3H PRN IV PUSH Pain 6-10 Last administered on 08/08/17 09:11; Start 08/03/17 at 19:30 Senna/Docusate Sodium (Alanna-Colace) 1 tab BID PO Last administered on 09:10; Start 08/03/17 at 21:00 Magnesium Hydroxide (Milk Of Magnesia Liq) 30 ml Q12H PRN PO MILD - MODERATE CONSTIPATION Last administered on 08/07/17 16:42; Start 08/03/17 at 19:30 Sennosides (Senokot) 17.2 mg Q12H PRN PO MODERATE - SEVERE CONSTIPATION; Start 08/03/17 at 19:30 Bisacodyl (Dulcolax Supp) 10 mg DAILY PRN RECTAL SEVERE CONSITIPATION; Start at 19:30 Lactulose (Lactulose Liq) 30 ml DAILY PRN PO SEVERE CONSITIPATION; Start at 19:30 Clopidogrel Bisulfate (Plavix) 75 mg DAILY@1600 PO Last administered on 16:15; Start 08/04/17 at 16:00 Gabapentin (Neurontin) 600 mg QID PO Last administered on 08/08/17 09:10; Start 08/03/17 at 21:00 Insulin Detemir (Levemir Inj) 60 units BID SQ Last administered on 08/07/17 22 :24; Start 08/03/17 at 21:00 Pantoprazole Sodium (Protonix) 40 mg DAILY@1600 PO Last administered on 16:15; Start 08/04/17 at 16:00 Gadodiamide (Omniscan Pf Inj) 18 ml STK-MED ONCE IVCONTRAST Last administered on 08/03/17 19:50; Start 08/03/17 at 19:50; Stop 08/03/17 at 19:51; Status DC Vancomycin HCl 2300 mg/Sodium Chloride 523 ml @ 250 mls/hr NOW ONCE IV Last administered on 08/04/17 00:49; Start 08/03/17 at 21:00; Stop 08/03/17 at 23:05 ; Status DC Vancomycin HCl 1500 mg/Sodium Chloride 515 ml @ 250 mls/hr Q12H IV Last administered on 08/05/17 09:10; Start 08/04/17 at 09:00; Stop 08/05/17 at 09:40 ; Status DC Miscellaneous Information SPECIFIC LAB TO BE DILIP... ONCE ONCE .XX Last administered on 08/05/17 08:45; Start 08/05/17 at 08:45; Stop 08/05/17 at 08:46 ; Status DC Iohexol (Omnipaque 350 Inj) 100 ml STK-MED ONCE IVCONTRAST Last administered on 08/04/17 19:38; Start 08/04/17 at 19:38; Stop 08/04/17 at 19:40; Status DC Vancomycin HCl 1750 mg/Sodium Chloride 517.5 ml @ 257.5 mls/ hr Q12H IV Last administered on 08/05/17 22:15; Start 08/05/17 at 21:00; Stop 08/05/17 at 22:48 ; Status DC Miscellaneous Information SPECIFIC LAB TO BE DILIP... ONCE ONCE .XX ; Start 08/07 at 08:45; Stop 08/07/17 at 08:45; Status DC Amlodipine Besylate (Norvasc) 5 mg BID PO Last administered on 08/08/17 09:10 ; Start 08/05/17 at 14:15 Clonidine (Catapres) 0.1 mg Q4H PRN PO SBP>160, DBP>90; Start 08/05/17 at 14:15 Hydralazine HCl (Apresoline) 25 mg Q8HR PO Last administered on 08/08/17 05:50 ; Start 08/05/17 at 22:00 Nifedipine (Procardia Xl) 30 mg NOW ONCE PO Last administered on 08/05/17 20: 53; Start 08/05/17 at 20:00; Stop 08/05/17 at 20:01; Status DC Piperacillin Sod/ Tazobactam Sod 50 ml @ 100 mls/hr Q6H IV Last administered on 08/07/17 10:21; Start 08/05/17 at 23:00; Stop 08/07/17 at 12:51; Status DC Ceftriaxone Sodium 2000 mg/ Sodium Chloride 100 ml @ 200 mls/hr Q24H IV Last administered on 08/07/17 13:15; Start 08/07/17 at 14:00; Stop 09/18/17 at 13:59 Urinary Catheter: No Vascular Central Line Catheter: No A/P Problem List: (1) Sepsis ICD Code: A41.9 - Sepsis, unspecified organism Status: Acute (2) Osteomyelitis ICD Code: M86.9 - Osteomyelitis, unspecified (3) Hyperkalemia ICD Code: E87.5 - Hyperkalemia (4) HTN (hypertension) ICD Code: I10 - Essential (primary) hypertension (5) DM (diabetes mellitus) ICD Code: E11.9 - Type 2 diabetes mellitus without complications Assessment and Plan 1. Sepsis: HR 110, WBC 25.4, Source-Left Heel Ulcer. S/p Blood Cultures, Vanco/Zosyn in ER. Follow up cultures, continue IV Abx. 2. Osteomyelitis: Left Foot. X-ray w/ erosive changes along posterior calcaneus with possible avulsion injury, MRI Foot with large soft tissue ulcer heal and broad area of osteomyelitis of posterior calcaneus with rupture of Achilles tendon, images reviewed . S/p IV Abx as above, will continue. Consult Podiatry and ID. 3. Hyperkalemia: Mild. K+ 5.5. S/p Insulin/D50 in ER, will repeat in am. 4. HTN: BP 150-160's, likely compounded by pain, optimize pain control, monitor BP. ADD CATAPRES AND HYDRALAZINE FOR BP 5. DM: Sliding scale w/ Accu-Cheks. Resume home Insulin Glycemia monitor blood sugars ANEMIA- AM LABS AND MONITOR VASCULAR ISSUES CONSULT VASCULAR SURGERY REGARDING LEFT LOWER EXTREMITY FROM RADIOLOGICAL STUDIES- TO HAVE VASCULAR PROCEDURE LATER THIS WEEK 6. DVT Prophylaxis: Heparin sq 7. Social work for d/c planning as needed A.m. labs continue on current antibiotic treatment VASCULAR SURGERY CONSULT REGARDING LEFT LE- TO HAVE VASCULAR PROCEDURE TODAY IS NPO MARY ANN RN AND PATIENT STREP BOVIS CONSULT GI-- WILL NEED EGD AND COLONOSCOPY BEFORE DC AM LABS MARY ANN RN AND PT AND ID FOR POSSIBLE SURGERY TODAY IS NPO AM LABS TRANSFUSE IF HGB <7 Problem Qualifiers (1) Sepsis: Qualified Codes: A41.9 - Sepsis, unspecified organism Piyush Zuluaga DO Aug 08, 2017 12:06
[2017-08-08] MEDS: cefTRIAXone INJ 2,000 MG in SODIUM CHLORIDE 0.9% INJ 100 ML IV SCH (13:14)
--- NOTE | 2017-08-08 13:27 | HHI.GIFU ---
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 Available Data (labs, X- Rays, Procedues) : Labs noted. 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 Awaiting word from surgeons about when we can schedule EGD/dilation and colonoscopy. It was a pleasure seeing Adilson Lehman. Entered by: Nico Ye MD Aug 08, 2017 13:27
[2017-08-08] MEDS ORDERED: IOHEXOL 350 MG/ML 100 ML BTL (for Cath Lab) OTHER ONE (14:10)
[2017-08-08] MEDS ORDERED: MIDAZOLAM HCL 2 MG/2 ML VIAL ONE ×2 (14:18→14:48)
[2017-08-08] MEDS ORDERED: HEPARIN SODIUM - IV 10,000 UNITS/10 ML VIAL ONE (14:18)
[2017-08-08] MEDS ORDERED: NITROGLYCERIN INJ 5 ML ONE (14:18)
[2017-08-08] MEDS ORDERED: HEPARIN-NS/PF INJ 1,000 ML ONE (14:18)
[2017-08-08] MEDS ORDERED: CLOPIDOGREL 300 MG TAB ONE (15:20)
--- NOTE | 2017-08-08 15:24 | PD.VS.PN ---
Subjective POD #: 0 Procedure(s): left SFA recanalization and balloon angioplasty 5mm x 40mm Subjective/Hospital Course patient without complaints. Objective Vitals/I&O Date Time Temp Pulse Resp B/P (MAP) Pulse Ox O2 Delivery O2 Flow Rate FiO2 08/08/17 12:32 99.0 108 20 134/64 (87) 93 08/08/17 11:00 105 08/08/17 07:01 18 08/08/17 07:00 98.3 84 20 140/64 (89) 94 08/08/17 05:05 98.1 96 20 118/67 (84) 93 08/08/17 02:53 19 08/08/17 02:45 107 08/07/17 20:10 97.8 105 20 140/63 (88) 96 08/07/17 16:09 97.8 110 20 134/62 (86) 95 08/08/17 08/08/17 08/08/17 06:59 14:59 22:59 Intake Total 650 ml Balance 650 ml Pulses: left DP triphasic. right groin soft without hematoma. Laboratory Laboratory Tests Test 08/08/17 08:03 White Blood Count 17.9 Red Blood Count 3.23 Hemoglobin 7.6 Hematocrit 23.3 Mean Corpuscular Volume 72.3 Mean Corpuscular Hemoglobin 23.5 Mean Corpuscular Hemoglobin Concent 32.4 Red Cell Distribution Width 18.9 Platelet Count 523 Mean Platelet Volume 7.4 Neutrophils (%) (Auto) 68.5 Lymphocytes (%) (Auto) 18.8 Monocytes (%) (Auto) 7.2 Eosinophils (%) (Auto) 4.4 Basophils (%) (Auto) 1.1 Neutrophils # (Auto) 12.2 Lymphocytes # (Auto) 3.4 Monocytes # (Auto) 1.3 Eosinophils # (Auto) 0.8 Basophils # (Auto) 0.2 CBC Comment DIFF FINAL Differential Comment Blood Urea Nitrogen 15 Creatinine 0.77 Random Glucose 70 Total Protein 5.4 Albumin 1.6 Calcium Level 7.8 Phosphorus Level 2.8 Magnesium Level 2.0 Alkaline Phosphatase 198 Aspartate Amino Transf (AST/SGOT) 16 Alanine Aminotransferase (ALT/SGPT) 18 Total Bilirubin 0.1 Sodium Level 138 Potassium Level 4.1 Chloride Level 105 Carbon Dioxide Level 25.2 Anion Gap 8 Estimat Glomerular Filtration Rate 106 Date/Time Source Procedure Growth Status 08/06/17 11:20 Blood Peripheral Aerobic Blood Culture - Preliminary NO GROWTH IN 2 DAYS Resulted 08/06/17 11:20 Blood Peripheral Anaerobic Blood Culture - Preliminary NO GROWTH IN 2 DAYS Resulted 08/03/17 17:42 Wound Foot Gram Stain - Final Complete 08/03/17 17:42 Wound Culture - Final Crystal Tropicalis Complete Assessment and Plan Assessment: (1) Diabetic ulcer of heel Status: Acute Plan Patient with a chronic diabetic left heel ulcer that is extensive.. Pt still with leukocytosis. patient should have debridement via podiatry. left SFA patent status post recanalization. Diego Esquivel DO, MONICA Problem Qualifiers (1) Diabetic ulcer of heel: Qualified Codes: E13.621 - Other specified diabetes mellitus with foot ulcer; L97.429 - Non-pressure chronic ulcer of left heel and midfoot with unspecified severity Diego Esquivel DO Aug 08, 2017 15:24
--- NOTE | 2017-08-08 15:32 | CATHPROC ---
[facility] HIS Report Study Information Study Number Admission Scheduled Start Study Start [id number] Aug 03 2017 7:30PM 08/08/2017 Aug 08 2017 1:50PM [place] Service Cath Endovascular Study Admit Source Facility Department Other [facility] - Structural Metal Fabricator Apprentice Physician and Clinical Staff Initial Diego Salgado Strategic Insights Lead Karoline Romero,FREDDY Recorder Agatha Devlin,KIMBERLY Scrub Rosa, Dakota,RT(R) X-Ray Cathy Chase,RT(R) Procedures Performed Procedure Location (Site) Vessel Name Angiogram (manual) Fem L. Com (L7) Femoral Art Angiogram (manual) Fem Sup. (left) Femoral Art Angiogram (manual) Peroneal (left) Popliteal Angiogram (manual) Popliteal L (L10) Popliteal Angiogram (manual) Tib, Ant. (left) Popliteal Angiogram (manual) Tib, Ant. (right) Popliteal Angiogram (manual) Tib, Post (Left) Popliteal ELEVATOR ATTENDANT Fem Sup. (left) Femoral Art Wire insertion Fem Art (right) Femoral Art Equipment Time Calibration Checker Description Size Mfg Part Number Used/Scraped [id number] 14:25 ANGIO-DYNAMICS OMNI FLUSH 65CM CATHETER FR 5 Used *[id number] DBP- CARDIOVASCULAR CATHETER, STEALTH SOLID 14:56 [id number] Used SYSTEMS INC. 2.0MM *[id number] CARDIOVASCULAR [id number] 14:51 WIRE, FIRM (VIPER) 335 Used SYSTEMS INC. *[id number]-502-10.0- INTRODUCER SET, 14:25 COOK INC. FR 5 SC-NT-U-SST Used MICROPUNCTURE, STIFFENED *[id number] 15:07 DAIG/ST. WILLY MEDICAL ANGIOSEAL, FR6 VIP FR 6 Used *[id number] BALLOON, PACIFIC PLUS 5 X 40 [id number] 15:03 [employer] 130CM Used 130CM *[id number] [id number] 14:25 [employer] WIRE, FABRICIOSON .035 150CM 150CM Used *[id number] 14:25 [employer] INDUSTRIES PACK, CCL CUSTOM * Used *[id number] 14:25 NAMIC TUBING, HIGH PRESSURE 48" 48" Used *[id number] 14:25 NYCOMED OMNIPAQUE, 300 MG, 150ML 150ML [id number] Used 14:25 NYCOMED OMNIPAQUE, 300 MG, 50ML 50ML [id number] Used [id number] 14:25 BRICEÑO MEDICAL BLANKET,WARM AIR CCL * Used *[id number] CATHETER, QUICK CROSS 518-037 14:47 [employer]etics .035 Used SUPPORT 2 *[id number] 14:25 TERUMO MEDICAL SHEATH, FR5 TERUMO (10CM) FR 5 Used *[id number] SHEATH, FR6 PINNACLE [id number] 14:44 TERUMO MEDICAL/AMINA FR 6 Used DESTINATION 45CM *[id number] WIRE, ANGLE GLIDE STIFF .035 [id number] 14:25 TERUMO MEDICAL/AMINA 260CM Used 260CM *[id number] Equipment Model, Serial, Lot Number and Expiration Data Description Model Number Serial Number Lot Number Expiration Date ANGIOSEAL, FR6 VIP [id number] 06-12-2018 BALLOON, PACIFIC PLUS 5 X 40 [id number] 09-12-2018 130CM CATHETER, QUICK CROSS SUPPORT [id number] 01-09-2019 2 WIRE, FIRM (VIPER) 335 [id number] 02-10-2019 History: Allergies Allergy Reaction *MDRO Multi-Drug Resistant Organism History: Risk Factors Family History of Hypertension Dyslipidemia Previous PA Previous Heart Failure Premature CAD Yes Yes No No No Prior Valve Prior PCI Prior CABG Surgery No No No Cerebrovascular Peripheral Artery Chronic Lung On Dialysis Diabetes Diabetes Therapy Disease Disease Disease No No Yes No Yes Oral History: Stress Tests Stress or Imaging Studies Performed No History: Other Current Smoker Method Yes Cigarettes Labs Hgb (g/dl) Hct (%) 11.60-17.00 35.00-51.00 7.6 23.3 BUN (mg/dl) Creatinine (mg/dl) BUN:Creatinine (1:x) 7.00-18.00 0.50-1.30 10.00-20.00 15 0.7 21.4 Na (meq/l) K (meq/l) 136.00-145.00 3.50-5.10 138 4.1 INR (PTT:PT) 0.90-1.10 1.2 Medication Medication Total Dose (Bolus/Oral) Medication Total Dosage/Unit 1% XYLOCAINE 20 mL FENTANYL 100 mcg HEPARIN 9000 units NTG (IC) 500 mcg PLAVIX 300 mg VERSED 4 mg Medications (Bolus/Oral) Medication Time Given Dosage/Unit Administered By Reason VERSED 08/08/2017 2:36:12 PM 2 mg Karoline Romero Patient arrived on 2 mg VERSED given by Karoline Romero RN in Right Antecubital via Peripheral IV. 1% XYLOCAINE 08/08/2017 2:36:45 PM 20 mL Diego Esquivel 20 mL 1% XYLOCAINE given in lab by Diego Esquivel in Right Groin via Subcutaneous. FENTANYL 08/08/2017 2:37:27 PM 50 mcg Karoline Romero Patient arrived on 50 mcg FENTANYL given by Karoline Romero RN via Peripheral IV. HEPARIN 08/08/2017 2:48:38 PM 4000 units Karoline Romero 4000 units HEPARIN given in lab by Karoline Romero RN via Peripheral IV. VERSED 08/08/2017 2:49:40 PM 1 mg Karoline Romero 1 mg VERSED given in lab by Karoline Romero RN via Peripheral IV. FENTANYL 08/08/2017 2:50:19 PM 50 mcg Karoline Romero 50 mcg FENTANYL given in lab by Karoline Romero RN via Peripheral IV. HEPARIN 08/08/2017 2:52:00 PM 1000 units Karoline Romero 1000 units HEPARIN given in lab by Karoline Romero RN via Peripheral IV. HEPARIN 08/08/2017 2:57:48 PM 3000 units Karoline Romero 3000 units HEPARIN given in lab by Karoline Romero RN via Peripheral IV. NTG (IC) 08/08/2017 3:02:23 PM 500 mcg Diego Esquivel 500 mcg NTG (IC) given in lab by Diego Esquivel via Intra-coronary. VERSED 08/08/2017 3:03:15 PM 1 mg Karoline Romero 1 mg VERSED given in lab by Karoline Romero RN via Peripheral IV. HEPARIN 08/08/2017 3:06:35 PM 1000 units Karoline Romero 1000 units HEPARIN given in lab by Karoline Romero RN via Peripheral IV. PLAVIX 08/08/2017 3:26:41 PM 300 mg Karoline Romero 300 mg PLAVIX given in lab by Karoline Romero RN via Oral. Medication (Drip) Medication Time Given Dosage/Unit Concentration/Unit Diluent (ml) Solution IV Solutions 08/08/2017 2:21:11 PM 0 mL (IV) NaCl .9 Patient arrived on IV Solutions in Right Forearm via Peripheral IV. Pump/Drip Flow = 20 ml/hr using N aCl .9. Initial Case Assessment Cardiovascular HR Rhythm NIBP 108 sr 157/79 Edema Present Skin color Skin None Normal Warm Circulatory - Right Pulses Dorsalis Pedis Femoral 3 3 Scale (0,1,2,3,4,d) Circulatory - Left Pulses Dorsalis Pedis Femoral d 2 Scale (0,1,2,3,4,d) Neurological State Oriented to time-place- Alert person Respiration - General Respiration Rate SpO2 (%) (B/min) 19 94 Chronological Log Time Study Chronological Log 14:10:36 Patient arrived via Bed. 14:10:38 Patient Name, D.O.B, / Armband Verified By R.N. 14:10:40 Consent signed by the physician and the patient and verified by the Structural Metal Fabricator Apprentice staff. 14:10:41 Pre-op and post- op instructions given; patient acknowledges understanding of instructions. 14:10:43 Presedation assessment performed by Structural Metal Fabricator Apprentice RN. 14:10:47 Patient has been NPO for More than 6Hrs. Vitals capture started with the following parameters, Patient=Adult, Interval=5 min, Initial Pr iopxdv=606 mmHg, 14:12:22 Deflation Rate=5 mmHg 14:13:09 XU=712 bpm, YNCY=190/78 mmhg, SpO2=95 %, Resp=15 B/min, Suresh=10 14:17:36 NIBP STAT measurement started. 14:17:58 FZ=394 bpm, ZZQK=926/82 mmhg, SpO2=94.0 %, Resp=18 B/min 14:17:58 Skin Breakdown left foot open sores on top and heel. Color dusky 14:18:43 Patient Warmer Placed on the Table. 14:18:48 A # 20 IV was noted in the Antecubital (right). Grade = 0 14:20:10 Reference ECG taken 14:20:56 A # 20 IV was noted in the Forearm (right). Grade = 0 14:21:11 Patient arrived on IV Solutions in Right Forearm via Peripheral IV. Pump/Drip Flow = 20 ml/ hr using NaCl .9. 14:21:48 History and physical on the chart or being dictated. 14:22:59 OB=963 bpm, KTWE=124/77 mmhg, SpO2=94.0 %, Resp=11 B/min, Suresh=10 Assessment: Initial Case, FZ=747 BPM, Rhythm=sr, RXID=936/79 mmhg, Edema=None, Color=Normal, Sk in = Warm Right Pulses: Amador Ped=3, Femoral=3 14:27:53 Left Pulses: Amador Ped=d, Post Tib=d, Femoral=2 Neurological: State=Alert, Ox3 Respiration: Resp=19 B/min, SpO2=94 % 14:28:02 MK=907 bpm, LQZU=109/79 mmhg, SpO2=94.0 %, Resp=20 B/min, Suresh=10 14:33:01 IM=155 bpm, ZRXE=827/79 mmhg, SpO2=91.0 %, Resp=21 B/min, Suresh=10 14:33:09 MD arrived. Time Out. Correct patient, correct procedure,correct physician, ,power injector loaded with con trast with surgical team 14:35:50 present. Time Out Concurred by MD, individual staff and MARKETING FORECASTER in procedure 14:36:12 Patient arrived on 2 mg VERSED given by Karoline Romero, FREDDY in Right Antecubital via Periph eral IV. 14:36:37 Case Start 14:36:39 Verbal Stimulation=2 Physical Stimulation=2 Airway=2 Respiration=2 TOTAL=8. (0=absent, 1=li mited, 2=present) 14:36:45 20 mL 1% XYLOCAINE given in lab by Diego Esquivel in Right Groin via Subcutaneous. 14:37:27 Patient arrived on 50 mcg FENTANYL given by Karoline Romero, RN via Peripheral IV. 14:38:04 EA=554 bpm, MFYC=252/73 mmhg, SpO2=94.0 %, Resp=17 B/min, Suresh=10 14:38:36 Access site was Right Femoral Artery with MP kit 14:38:50 A wire was inserted via Fem Art (right). 14:39:31 A SHEATH, FR5 TERUMO (10CM) FR 5 was advanced into the Fem Art (right) using the Percutaneo us technique. A OMNI FLUSH 65CM CATHETER FR 5 was advanced over a wire. OMNIPAQUE, 300 MG, 50ML 50ML was used for 14:40:26 injections. 14:40:53 A WIRE, ANGLE GLIDE STIFF .035 260CM 260CM was inserted via Fem Art (right). 14:42:05 Fem L. Com (L7) angiogram, manually injected. 14:42:25 Fem Sup. (left) angiogram, manually injected. 14:43:03 GY=639 bpm, BBHD=089/75 mmhg, SpO2=95.0 %, Resp=18 B/min, Suresh=10 14:44:11 Popliteal L (L10) angiogram, manually injected. 14:44:58 Peroneal (left) angiogram, manually injected. 14:45:08 Tib, Ant. (left) angiogram, manually injected. 14:45:17 Tib, Post (Left) angiogram, manually injected. A SHEATH, FR6 PINNACLE DESTINATION 45CM FR 6 was exchanged in the Fem Art (right). This was nec essary in 14:45:39 order to accomodate a larger catheter. 14:46:27 A WIRE, ANGLE GLIDE STIFF .035 260CM 260CM was inserted via Fem Art (right). 14:48:02 KJ=417 bpm, OBTV=794/68 mmhg, SpO2=94.0 %, Resp=19 B/min, Suresh=10 14:48:38 4000 units HEPARIN given in lab by Karoline Romero, RN via Peripheral IV. A CATHETER, QUICK CROSS SUPPORT 2 .035 was advanced over a wire. OMNIPAQUE, 300 MG, 50ML 50ML w as used 14:49:05 for injections. 14:49:40 1 mg VERSED given in lab by Karoline Romero, RN via Peripheral IV. 14:50:19 50 mcg FENTANYL given in lab by Karoline Romero, RN via Peripheral IV. 14:52:00 1000 units HEPARIN given in lab by Karoline Romero, RN via Peripheral IV. 14:52:37 The previous wire was exchanged for a WIRE, FIRM (VIPER) 335. 14:53:01 PC=584 bpm, NCUF=852/73 mmhg, SpO2=90 %, Resp=17 B/min, Suresh=10 14:53:49 Activated Clotting Time Drawn 14:53:51 quick cross Catheter was removed w/o difficulty 14:55:45 An CATHETER, STEALTH SOLID 2.0MM catheter was inserted into the Fem Sup. (left). 14:57:39 ACT (Normal Range 90-180) = 128 14:57:48 3000 units HEPARIN given in lab by Karoline Romero, FREDDY via Peripheral IV. 14:58:03 QZ=233 bpm, EUAS=300/70 mmhg, SpO2=95.0 %, Resp=17 B/min, Suresh=10 15:02:18 Activated Clotting Time Drawn 15:02:23 500 mcg NTG (IC) given in lab by Diego Esquivel via Intra-coronary. 15:02:51 atherectomy in progress 15:03:04 EU=231 bpm, EZOS=209/72 mmhg, SpO2=95.0 %, Resp=21 B/min, Suresh=10 15:03:15 1 mg VERSED given in lab by Karoline Romero, FREDDY via Peripheral IV. 15:05:35 A BALLOON, PACIFIC PLUS 5 X 40 130CM 130CM was inserted over WIRE, FIRM (VIPER) 335 via the Fem Sup. (left). 15:06:13 In the Fem Sup. (left) a BALLOON, PACIFIC PLUS 5 X 40 130CM 130CM was inflated to 6 atms fo r 60 seconds. 15:06:31 ACT (Normal Range 90-180) = 205 15:06:35 1000 units HEPARIN given in lab by Karoline Romero, FREDDY via Peripheral IV. 15:07:11 In the Fem Sup. (left) a BALLOON, PACIFIC PLUS 5 X 40 130CM 130CM was inflated to 6 atms fo r 60 seconds. 15:08:05 IU=052 bpm, VSIQ=473/79 mmhg, SpO2=93.0 %, Resp=16 B/min, Suresh=10 15:09:08 In the Fem Sup. (left) a BALLOON, PACIFIC PLUS 5 X 40 130CM 130CM was inflated to 6 atms fo r 120 seconds. 15:12:26 Fem Sup. (left) angiogram, manually injected. 15:12:49 Tib, Ant. (right) angiogram, manually injected. 15:13:04 EZ=250 bpm, SXWF=241/81 mmhg, SpO2=94.0 %, Resp=18 B/min, Suresh=10 15:13:10 Tib, Post (Left) angiogram, manually injected. 15:14:27 A BALLOON, PACIFIC PLUS 5 X 40 130CM 130CM was inserted over WIRE, FIRM (VIPER) 335 via the Fem Sup. (left). 15:16:31 Balloon Removed. 15:16:33 Wire removed 15:16:52 An injection in the Fem Art (right) was made through the SHEATH, FR6 PINNACLE DESTINATION 4 5CM FR 6. 15:18:05 YX=560 bpm, MSQG=026/72 mmhg, SpO2=93.0 %, Resp=17 B/min, Suresh=10 15:20:42 ANGIOSEAL, FR6 VIP FR 6 placement in the Fem Art (right) 15:20:50 Case End 15:20:52 Sterile dressing applied to site 15:20:53 No case complications noted. 15:20:53 Cine recording checked. 15:20:54 Bedside Report will be given. 15:23:06 OO=066 bpm, AQQS=757/81 mmhg, SpO2=94.0 %, Resp=16 B/min, Suresh=10 15:26:41 300 mg PLAVIX given in lab by Karoline Romero, RN via Oral. 15:28:05 UL=867 bpm, AAJG=480/82 mmhg, SpO2=95.0 %, Resp=16 B/min, Suresh=10 End Study - Contrast Media Used In Study Contrast Total Opened (mL) Total Used (mL) Total Wasted (mL) Omnipaque 80 80 0 End Study - Maximum Contrast Load Max Contrast Load (mL) 604.9 End Study - Radiation Exposure Fluoro Time (minutes) 7.2 End Study - Sheaths Sheaths Pulled By Sheath Hold Time (min) Diego Esquivel End Study - Patient Disposition Complications Transferred To Interventional Outcome No Structural Metal Fabricator Apprentice Holding successful
[2017-08-08] MEDS: PANTOPRAZOLE SOD 40 MG DELAYED RELEASE TAB PO SCH (16:00)
[2017-08-08] MEDS: CLOPIDOGREL 75 MG TAB PO SCH (16:00)
--- NOTE | 2017-08-08 19:18 | MP ---
cc: JOEY CHURCH DATE OF SURGERY 08/08/2017 PREOPERATIVE DIAGNOSIS Diabetic foot wound left lower extremity. POSTOPERATIVE DIAGNOSIS Diabetic foot wound left lower extremity. PROCEDURE 1. Selective left lower extremity arteriogram. 2. Rechanneling of left superficial femoral artery with balloon angioplasty of the left SFA and above-knee popliteal artery with a 5-mm x 40-mm balloon and then CSI atherectomy SURGEON Dr. Herber hCurch IV FLUIDS Approximately one liter ESTIMATED BLOOD LOSS Minimal URINE OUTPUT Not calculated. COMPLICATIONS None DISPOSITION To PACU PROCEDURE IN DETAIL The patient's right groin was prepped and draped in sterile fashion after being under moderate sedation. I got access to the right common femoral artery using pulsation. Then using Seldinger technique, I exchanged for a 4-Uruguayan micropuncture catheter. After initial access to the 21-gauge needle, ___ exchanged for a 5-[place]ayan sheath. Then Omni ___ catheter into the distal abdominal aorta and I ___ out the left common femoral artery using a selective stiff angled Glidewire and shot a left lower extremity arteriogram. The left common femoral and profunda femoral arteries were patent. It should be noted that there was a segment of the profunda femoral artery that had a segmental occlusion. The left superficial femoral artery was patent to the level of abductor's doctor's canal where there was a short segment chronic total occlusion with reconstitution of the above-knee pop. There was a mild to moderate stenosis of the left popliteal artery and then there was three vessel runoff to the left lower extremity to the level of the ankle. The patient was heparinized to an ACT of greater than 200 after exchanging for a 6-Uruguayan 45 cm destination sheath. I used a quick cross catheter and stiff angled Glidewire across the lesion. After I crossed the lesion, I made sure I was intraluminal and then exchanged for a 12 wire. I then used the 2-0 CSI atherectomy device at high and low speeds across the left SFA lesion and I performed balloon angioplasty of this area and an area in the above-knee popliteal artery. It should be noted that there was good blood flow through both of these areas. There was a dissection flap in the popliteal space, but it did not appear to be flow-limiting. The left SFA was completely recanalized with no residual recoil or dissection flap. I did make sure that there was flow at the level of the ankle at the end of the procedure, then I made sure that my sheath was then above the origin of the right proximal SFA and profunda femoral artery and then I used a 6-Uruguayan Angio-Seal to close the right groin. DO ADILENE Pugh/ /3:25 PM /7:06 PM
--- NOTE | 2017-08-08 20:42 | PD.POD ---
Subjective Podiatric Problems Left foot gangrene and OM. PVD Seen at bedside this am. Pain scale used: 0-10 numeric scale Pain score: 0 Past Med/Surg/Social History Social History Smoking Status: Current Every Day Smoker Objective Vital Signs Vital Signs Date Time Temp Pulse Resp B/P (MAP) Pulse Ox O2 Delivery O2 Flow Rate FiO2 08/08/17 12:32 99.0 108 20 134/64 (87) 93 08/08/17 11:00 105 08/08/17 07:01 18 08/08/17 07:00 98.3 84 20 140/64 (89) 94 08/08/17 05:05 98.1 96 20 118/67 (84) 93 08/08/17 02:53 19 08/08/17 02:45 107 Coded Allergies: *MDRO Multi-Drug Resistant Organism (Verified Adverse Reaction, Unknown, ) MRSA (arm wound) - 01/2016 MRSA (blood, urine, wound) - 06/2013 Other Results Last Impressions Lower Extremity Ultrasound 08/05/17 0000 Signed Impressions: Service Date/Time: Saturday, August 05, 2017 18:13 - CONCLUSION: Negative exam with no evidence of deep venous thrombosis. Stone Sexton MD Aorta w/Runoff CTA 08/04/17 0000 Signed Impressions: Service Date/Time: Friday, August 04, 2017 19:29 - CONCLUSION: 1. Severe atherosclerotic disease. There is a focal short segment high-grade stenosis of the distal left superficial femoral artery. This stenosic segment measures approximately 1 cm in length and represents a change from the prior study. Remaining left lower extremity arterial vessels demonstrate no significant change from the prior exam. 2. Moderate narrowing of the proximal superior mesenteric artery secondary to noncalcified plaque. This finding is stable. 3. Small bilateral pleural effusions with associated compressive atelectasis. Jose Francisco Rogers MD Foot X-Ray 08/03/17 0000 Signed Impressions: Service Date/Time: July 17:19 - CONCLUSION: 1. Erosive changes along the posterior calcaneus with possible avulsion injury superiorly. MRI pending to assess for infection and trauma. Gustavo Hicks MD Foot MRI 08/03/17 0000 Signed Impressions: Service Date/Time: July 19:20 - CONCLUSION: Large soft tissue ulcer of the heel and with a broad area of osteomyelitis of the posterior calcaneus. The Achilles tendon is ruptured at its insertion. No drainable abscess. Jose Francisco Rodriguez MD Laboratory Tests Test 08/03/17 17:37 08/05/17 07:17 08/08/17 08:03 Erythrocyte Sedimentation Rate 24 mm/hr Prothrombin Time 13.5 SEC Prothromb Time International Ratio 1.2 RATIO Activated Partial Thromboplast Time 25.6 SEC Lactic Acid Level 1.3 mmol/L C-Reactive Protein 9.20 MG/DL Hemoglobin A1c 10.2 % Free Thyroxine 0.93 NG/DL Thyroid Stimulating Hormone 3rd Gen 2.050 uIU/ML Vancomycin Level Trough 7.2 MCG/ML White Blood Count 17.9 TH/MM3 Red Blood Count 3.23 MIL/MM3 Hemoglobin 7.6 GM/DL Hematocrit 23.3 % Mean Corpuscular Volume 72.3 FL Mean Corpuscular Hemoglobin 23.5 PG Mean Corpuscular Hemoglobin Concent 32.4 % Red Cell Distribution Width 18.9 % Platelet Count 523 TH/MM3 Mean Platelet Volume 7.4 FL Neutrophils (%) (Auto) 68.5 % Lymphocytes (%) (Auto) 18.8 % Monocytes (%) (Auto) 7.2 % Eosinophils (%) (Auto) 4.4 % Basophils (%) (Auto) 1.1 % Neutrophils # (Auto) 12.2 TH/MM3 Lymphocytes # (Auto) 3.4 TH/MM3 Monocytes # (Auto) 1.3 TH/MM3 Eosinophils # (Auto) 0.8 TH/MM3 Basophils # (Auto) 0.2 TH/MM3 CBC Comment DIFF FINAL Differential Comment Blood Urea Nitrogen 15 MG/DL Creatinine 0.77 MG/DL Random Glucose 70 MG/DL Total Protein 5.4 GM/DL Albumin 1.6 GM/DL Calcium Level 7.8 MG/DL Phosphorus Level 2.8 MG/DL Magnesium Level 2.0 MG/DL Alkaline Phosphatase 198 U/L Aspartate Amino Transf (AST/SGOT) 16 U/L Alanine Aminotransferase (ALT/SGPT) 18 U/L Total Bilirubin 0.1 MG/DL Sodium Level 138 MEQ/L Potassium Level 4.1 MEQ/L Chloride Level 105 MEQ/L Carbon Dioxide Level 25.2 MEQ/L Anion Gap 8 MEQ/L Estimat Glomerular Filtration Rate 106 ML/MIN Exam-Podiatry Dermatological Exam Ulcers: Location/Measurements LLE + heel gangrene with edema and erythema. diminished pulses and protective sensation is absent. Assessment & Plan Diagnosis: (1) Osteomyelitis of toe of left foot ICD Codes: M86.9 - Osteomyelitis of toe of left foot Status: Acute (2) Uncontrolled diabetes mellitus ICD Codes: E11.65 - Type 2 diabetes mellitus with hyperglycemia Status: Acute (3) Osteomyelitis ICD Codes: M86.9 - Osteomyelitis, unspecified A/P Plan for the OR on 08/09/17 at 1500, patient would like to attempt leg salvage. Consent for 1) left foot Incision and drainage 2) left foot calcanectomy NPO after breakfast on 08/09/17 Medical clearance per Medicine Team. Julieta Greer DPM Aug 08, 2017 20:42
[2017-08-09] VITALS (7 sets, daily range): BP systolic 130–166; BP diastolic 62–73; PULSE 95–103; RESP 20; TEMP 98–98.7; O2SAT 91–97
[2017-08-09] MEDS: hydrALAZINE HCL 25 MG TAB PO SCH ×3 (04:38→22:08)
[2017-08-09] MEDS: SODIUM CHLOR 0.9% 1000 ML INJ 1,000 ML IV SCH ×2 (05:25→15:31)
[2017-08-09 07:36] LABS: AUTOMATED NEUTROPHIL # 15.4 TH/MM3 (1.8-7.7); BASOPHIL # 0.2 TH/MM3 (0-0.2); BASOPHIL % 1.1 % (0.0-2.0); EOSINOPHIL # 0.7 TH/MM3 (0-0.4); EOSINOPHIL % 3.3 % (0.0-4.0); HEMATOCRIT 24.7 % (39.0-51.0); HEMO FLAGS DIFF FINAL; LYMPH % 17.4 % (9.0-44.0); LYMPHOCYTE # 3.8 TH/MM3 (1.0-4.8); MEAN CELL VOLUME 72.4 FL (80.0-100.0); MEAN CORPUSCULAR HEMOGLOBIN 22.4 PG (27.0-34.0); MEAN CORPUSCULAR HGB CONC 30.9 % (32.0-36.0); MONO % 7.4 % (0.0-8.0); NEUT % 70.8 % (16.0-70.0); PLATELET COUNT 632 TH/MM3 (150-450); RED BLOOD COUNT 3.41 MIL/MM3 (4.50-5.90); RED CELL DISTRIBUTION WIDTH 18.9 % (11.6-17.2); WHITE BLOOD COUNT 21.7 TH/MM3 (4.0-11.0)
[2017-08-09 07:55] LABS: ALT (GPT) 18 U/L (12-78); ANION GAP 8 MEQ/L (5-15); AST (GOT) 15 U/L (15-37); BICARBONATE 23.1 MEQ/L (21.0-32.0); BLOOD UREA NITROGEN 18 MG/DL (7-18); CHLORIDE 106 MEQ/L (98-107); GLOMERULAR FILTRATION RATE 112 ML/MIN (>89); MAGNESIUM 2.1 MG/DL (1.5-2.5); POTASSIUM 4.1 MEQ/L (3.5-5.1); SODIUM (NA) 137 MEQ/L (136-145)
[2017-08-09 07:58] LABS: ALKALINE PHOSPHATASE 211 U/L (45-117); TOTAL BILIRUBIN ADULT 0.2 MG/DL (0.2-1.0)
[2017-08-09] MEDS: INSULIN ASPART SUPPLEMENTAL SCALE SQ SCH ×4 (08:26→21:00)
[2017-08-09] MEDS: GABAPENTIN 300 MG CAP PO SCH ×4 (08:26→22:07)
[2017-08-09] MEDS: SODIUM CHLORIDE 0.9% FLUSH 10 ML FLUSH IV FLUSH SCH ×2 (08:27→22:07)
[2017-08-09] MEDS: DOCUSATE SODIUM 50 MG/SENNA 8.6 MG TAB PO SCH ×2 (08:27→22:08)
[2017-08-09] MEDS: HEPARIN SODIUM - SQ 10,000 UNITS/ML VIAL SQ SCH ×2 (08:27→21:00)
[2017-08-09] MEDS: INSULIN DETEMIR 100 UNITS/ML VIAL SQ SCH ×2 (08:27→21:00)
[2017-08-09] MEDS: amLODIPine BESYLATE 5 MG TAB PO SCH ×2 (08:27→22:08)
[2017-08-09] MEDS ORDERED: INSULIN HUMAN REGULAR 1,000 UNITS/10 ML VIAL SQ PRN (08:45)
[2017-08-09] MEDS ORDERED: POVIDONE IODINE 5% (ANTISEPSIS KIT) 4 APPLICATIONS EACH NARE PRN (08:45)
[2017-08-09] MEDS ORDERED: CHLORHEXIDINE GLUCONATE 2 % 1 PACK (2 CLOTHS) TOPICAL PRN (08:45)
[2017-08-09] MEDS ORDERED: LACTATED RINGER'S 1000 ML IV PRN (08:45)
[2017-08-09] MEDS ORDERED: SODIUM CHLORID 0.9% 500 ML IV PRN (08:45)
[2017-08-09] MEDS ORDERED: METOPROLOL TARTRATE 25 MG TAB PO PRN (08:45)
[2017-08-09] MEDS: MORPHINE SULFATE 4 MG/ML INJ IV PUSH PRN (09:35)
--- NOTE | 2017-08-09 10:03 | HHI.GIFU ---
GI Follow-up Note Consult Follow-up Subjective: Patient sitting in bed comfortably. Pt to OR today. Objective: PHYSICAL EXAMINATION: Vitals signs stable No fever CHEST: Chest is clear to auscultation and percussion. CARDIAC: Regular rate and rhythm with no murmur gallop or rubs. ABDOMEN: Soft, nondistended, nontender; no hepatosplenomegaly; bowel sounds are present in all four quadrants. SKIN: no jaundice. FILM PROCESSOR: alert and oriented times three. Available Data (labs, X- Rays, Procedues) : ASSESSMENT/PLAN: 1. Strep Bovis bacteremia 2. Hx of adenomatous colon polyps 3. Dysphagia PLAN: 1. Pt going to OR today--will delay EGD/Dil and colon for now (?outpt) It was a pleasure seeing Adilson Lehman. Thank you for this consult. Entered by: Aron Cortez MD Aug 09, 2017 10:03
--- NOTE | 2017-08-09 11:03 | HHI.PR ---
Subjective Remarks This is a 52-year-old male with a PMH of HTN, DM, Peripheral Neuropathy, PVD and Chronic Left Foot Ulcer who was referred to the ER by PCP, Dr. Hernandez, for admission and further evaluation of left heel ulcer. Patient with chronic ulcer for the last 4 months, currently under Wound Care, states he recently completed antibiotics for left heel infection, was seen by PCP today and instructed to come to ER. Per pt, progressive pain to left heel especially w/ ambulation, today felt a 'crunch" followed by intense pain. On arrival, BP 126/ 68, HR 110, O2 sat 99% on RA, Afebrile. WBC 25.4. K+ 5.5. Lactic Acid 1.3. INR 1.2. LE Doppler negative for DVT. Foot X-ray w/ erosive changes along posterior calcaneus with possible avulsion injury. MRI Foot with large soft tissue ulcer of the heel with broad area of osteomyelitis of the posterior calcaneus, Achilles tendon ruptured at its insertion. S/p Vanc/Zosyn in ER 08-04 await infectious disease as well as podiatry evaluation No new complaints Is on vancomycin and Zosyn discussed with patient and RN 08-05 RADIOLOGY RESULTS REVIEWED- CONSULT VASCULAR FOR EVAL OF LEFT LE ADJUST BP MEDS 08-06 STREP BOVIS ON MICRO- CONSULT GI DW RN AND PT AND ID- CONSULT GI FOR SURGERY EARLY THIS WEEK REGARDING LEFT LE PER VASCULAR SURGERY AM LABS NEEDS TO KEEP LEFT FOOT FLOATING 08-07 TO GO FOR PROCEDURE ON LEFT LE TODAY WITH VASCULAR SURGERY NO NEW COMPLAINTS MONITOR ANEMIA--IS ON FLUIDS MAY BE DILUTIONAL AM LABS DW RN AND PT 08-08 POSSIBLY FOR SURGERY TODAY- NPO MONITOR HEMOGLOBIN HAS WEAKNESS BL LE, BOTH LEFT AND RIGHT AM LABS 08-09 MODERATE RISK FOR SURGERY TO GO FOR SURGERY TODAY DATE OF SURGERY HAD [id number]/08/2017 PREOPERATIVE DIAGNOSIS Diabetic foot wound left lower extremity. POSTOPERATIVE DIAGNOSIS Diabetic foot wound left lower extremity. PROCEDURE 1. Selective left lower extremity arteriogram. 2. Rechanneling of left superficial femoral artery with balloon angioplasty of the left SFA and above-knee popliteal artery with a 5-mm x 40-mm balloon and then CSI atherectomy SURGEON Dr. Herber Esquivel TO GO FOR SURGERY WITH PODIATRY TODAY Objective Vitals Vital Signs Date Time Temp Pulse Resp B/P (MAP) Pulse Ox O2 Delivery O2 Flow Rate FiO2 08/09/17 08:06 98.0 99 20 130/66 (87) 94 08/09/17 04:00 95 08/09/17 04:00 98.7 102 20 166/73 (104) 91 08/08/17 22:53 97 08/08/17 22:49 104 16 121/56 (77) 93 08/08/17 20:00 98.7 109 20 124/58 (80) 92 08/08/17 12:32 99.0 108 20 134/64 (87) 93 08/08/17 11:00 105 I/O 08/08/17 08/08/17 08/08/17 08/09/17 08/09/17 08/09/17 07:00 15:00 23:00 07:00 15:00 23:00 Intake Total 650 ml 950 ml 600 ml Output Total 250 ml 350 ml Balance 650 ml 950 ml -250 ml 250 ml IV Total 650 ml 950 ml 600 ml Output Urine Total 250 ml 350 ml # Voids 2 # Bowel Movements 2 Result Diagram: 08/09/17 0608/09/17 06 Other Results Laboratory Tests Test 08/07/17 09:50 08/07/17 11:21 08/08/17 08:03 08/09/17 06:00 White Blood Count 18.8 TH/MM3 17.9 TH/MM3 21.7 TH/MM3 Red Blood Count 4.06 MIL/MM3 3.23 MIL/MM3 3.41 MIL/MM3 Hemoglobin 9.3 GM/DL 8.4 GM/DL 7.6 GM/DL 7.6 GM/DL Hematocrit 29.3 % 26.6 % 23.3 % 24.7 % Mean Corpuscular Volume 72.2 FL 72.3 FL 72.4 FL Mean Corpuscular Hemoglobin 22.9 PG 23.5 PG 22.4 PG Mean Corpuscular Hemoglobin Concent 31.6 % 32.4 % 30.9 % Red Cell Distribution Width 19.0 % 18.9 % 18.9 % Platelet Count 644 TH/MM3 523 TH/MM3 632 TH/MM3 Mean Platelet Volume 7.4 FL 7.4 FL 7.4 FL Neutrophils (%) (Auto) 77.9 % 68.5 % 70.8 % Lymphocytes (%) (Auto) 12.1 % 18.8 % 17.4 % Monocytes (%) (Auto) 5.5 % 7.2 % 7.4 % Eosinophils (%) (Auto) 3.3 % 4.4 % 3.3 % Basophils (%) (Auto) 1.2 % 1.1 % 1.1 % Neutrophils # (Auto) 14.6 TH/MM3 12.2 TH/MM3 15.4 TH/MM3 Lymphocytes # (Auto) 2.3 TH/MM3 3.4 TH/MM3 3.8 TH/MM3 Monocytes # (Auto) 1.0 TH/MM3 1.3 TH/MM3 1.6 TH/MM3 Eosinophils # (Auto) 0.6 TH/MM3 0.8 TH/MM3 0.7 TH/MM3 Basophils # (Auto) 0.2 TH/MM3 0.2 TH/MM3 0.2 TH/MM3 CBC Comment DIFF FINAL DIFF FINAL DIFF FINAL Differential Comment Blood Urea Nitrogen 12 MG/DL 12 MG/DL 15 MG/DL 18 MG/DL Creatinine 0.84 MG/DL 0.83 MG/DL 0.77 MG/DL 0.73 MG/DL Random Glucose 185 MG/DL 190 MG/DL 70 MG/DL 106 MG/DL Total Protein 6.2 GM/DL 5.8 GM/DL 5.4 GM/DL 5.5 GM/DL Albumin 1.7 GM/DL 1.6 GM/DL 1.6 GM/DL 1.5 GM/DL Calcium Level 8.1 MG/DL 8.0 MG/DL 7.8 MG/DL 7.9 MG/DL Phosphorus Level 3.1 MG/DL 2.8 MG/DL 3.8 MG/DL Magnesium Level 1.9 MG/DL 2.0 MG/DL 2.1 MG/DL Alkaline Phosphatase 233 U/L 218 U/L 198 U/L 211 U/L Aspartate Amino Transf (AST/SGOT) 16 U/L 17 U/L 16 U/L 15 U/L Alanine Aminotransferase (ALT/SGPT) 14 U/L 17 U/L 18 U/L 18 U/L Total Bilirubin 0.3 MG/DL 0.3 MG/DL 0.1 MG/DL 0.2 MG/DL Sodium Level 135 MEQ/L 135 MEQ/L 138 MEQ/L 137 MEQ/L Potassium Level 4.3 MEQ/L 4.4 MEQ/L 4.1 MEQ/L 4.1 MEQ/L Chloride Level 102 MEQ/L 103 MEQ/L 105 MEQ/L 106 MEQ/L Carbon Dioxide Level 25.2 MEQ/L 25.0 MEQ/L 25.2 MEQ/L 23.1 MEQ/L Anion Gap 8 MEQ/L 7 MEQ/L 8 MEQ/L 8 MEQ/L Estimat Glomerular Filtration Rate 96 ML/MIN 97 ML/MIN 106 ML/MIN 112 ML/MIN Imaging Last Impressions Lower Extremity Ultrasound 08/05/17 0000 Signed Impressions: Service Date/Time: Saturday, August 05, 2017 18:13 - CONCLUSION: Negative exam with no evidence of deep venous thrombosis. Stone Sexton MD Aorta w/Runoff CTA 08/04/17 0000 Signed Impressions: Service Date/Time: Friday, August 04, 2017 19:29 - CONCLUSION: 1. Severe atherosclerotic disease. There is a focal short segment high-grade stenosis of the distal left superficial femoral artery. This stenosic segment measures approximately 1 cm in length and represents a change from the prior study. Remaining left lower extremity arterial vessels demonstrate no significant change from the prior exam. 2. Moderate narrowing of the proximal superior mesenteric artery secondary to noncalcified plaque. This finding is stable. 3. Small bilateral pleural effusions with associated compressive atelectasis. Jose Francisco Rogers MD Foot X-Ray 08/03/17 0000 Signed Impressions: Service Date/Time: July 17:19 - CONCLUSION: 1. Erosive changes along the posterior calcaneus with possible avulsion injury superiorly. MRI pending to assess for infection and trauma. Gustavo Hicks MD Foot MRI 08/03/17 0000 Signed Impressions: Service Date/Time: July 19:20 - CONCLUSION: Large soft tissue ulcer of the heel and with a broad area of osteomyelitis of the posterior calcaneus. The Achilles tendon is ruptured at its insertion. No drainable abscess. Jose Francisco Rodriguez MD Objective Remarks GENERAL: Awake alert oriented talkative and cooperative SKIN: Warm and dry. Left heel with large open wound HEAD: Atraumatic. Normocephalic. EYES: Pupils equal and round. No scleral icterus. No injection or drainage. EOMI ENT: No nasal bleeding or discharge. Mucous membranes pink and moist. Tongue is midline NECK: Trachea midline. No JVD. Supple CARDIOVASCULAR: Regular rate and rhythm. S1-S2 no S3 or S4 RESPIRATORY: No accessory muscle use. Clear to auscultation. Breath sounds equal bilaterally. GASTROINTESTINAL: Abdomen soft, non-tender, nondistended. Hepatic and splenic margins not palpable. MUSCULOSKELETAL: Extremities without clubbing, cyanosis, or edema. No obvious deformities. Left heel large ulcer WITH BLACK AREA NEUROLOGICAL: Awake and alert. No obvious cranial nerve deficits. Motor grossly within normal limits. 4 out of 5 muscle strength in the arms and legs. Normal speech. PSYCHIATRIC: Appropriate mood and affect; insight and judgment ABnormal. Procedures DATE OF SURGERY 08/08/2017 PREOPERATIVE DIAGNOSIS Diabetic foot wound left lower extremity. POSTOPERATIVE DIAGNOSIS Diabetic foot wound left lower extremity. PROCEDURE 1. Selective left lower extremity arteriogram. 2. Rechanneling of left superficial femoral artery with balloon angioplasty of the left SFA and above-knee popliteal artery with a 5-mm x 40-mm balloon and then CSI atherectomy SURGEON Dr. Herber Esquivel Medications and IVs Current Medications Sodium Chloride 1,000 ml @ 1,000 mls/hr Q1H IV Last administered on 08/03/17 18:02; Start 08/03/17 at 17:03; Stop 08/03/17 at 18:02; Status DC Vancomycin HCl 1000 mg/Sodium Chloride 250 ml @ 250 mls/hr ONCE ONCE IV Last administered on 08/03/17 19:24; Start 08/03/17 at 17:15; Stop 08/03/17 at 18:14 ; Status DC Piperacillin Sod/ Tazobactam Sod 50 ml @ 100 mls/hr ONCE ONCE IV Last administered on 08/03/17 18:02; Start 08/03/17 at 17:15; Stop 08/03/17 at 17:44 ; Status DC Insulin Human Regular (NovoLIN R INJ) 5 units ONCE ONCE IV PUSH ; Start at 19:00; Stop 08/03/17 at 19:01; Status DC Sodium Polystyrene Sulfonate (Kayexalate Liq) 15 gm ONCE ONCE PO Last administered on 08/03/17 20:19; Start 08/03/17 at 19:00; Stop 08/03/17 at 19:01 ; Status DC Sodium Chloride 1,000 ml @ 1,000 mls/hr Q1H IV Last administered on 08/03/17 20:19; Start 08/03/17 at 19:01; Stop 08/03/17 at 20:00; Status DC Dextrose (D50w (Syr) Inj) 50 ml UNSCH PRN IV PUSH HYPOGLYCEMIA-SEE COMMENTS; Start 08/03/17 at 19:30 Glucagon (Glucagon Inj) 1 mg UNSCH PRN OTHER HYPOGLYCEMIA-SEE COMMENTS; Start 08/03/17 at 19:30 Insulin Aspart (NovoLOG SUPPLEMENTAL SCALE) 1 ACHS SLIDING SCALE SQ Last administered on 08/08/17 21:00; Start 08/03/17 at 21:00 Pharmacy Profile Note 0 ml @ 0 mls/hr UNSCH OTHER ; Start 08/03/17 at 19:30; Stop 08/05/17 at 22:48; Status DC Cefepime HCl 1000 mg/Sodium Chloride 100 ml @ 200 mls/hr DAILY IV Last administered on 08/05/17 08:13; Start 08/04/17 at 09:00; Stop 08/05/17 at 22:48 ; Status DC Sodium Chloride 1,000 ml @ 100 mls/hr Q10H IV Last administered on 08/08/17 20:49; Start 08/03/17 at 19:30 Sodium Chloride (NS Flush) 2 ml UNSCH PRN IV FLUSH FLUSH AFTER USING IV ACCESS Last administered on 08/04/17 02:54; Start 08/03/17 at 19:30 Sodium Chloride (NS Flush) 2 ml BID IV FLUSH Last administered on 08/09/17 08: 27; Start 08/03/17 at 21:00 Ondansetron HCl (Zofran Inj) 4 mg Q6H PRN IVP NAUSEA OR VOMITING Last administered on 08/03/17 21:08; Start 08/03/17 at 19:30 Heparin Sodium (Porcine) (Heparin Inj) 5,000 units Q12H SQ Last administered on 08/08/17 20:41; Start 08/04/17 at 09:00 Acetaminophen (Tylenol) 650 mg Q6H PRN PO FEVER/PAIN SCALE 1 TO 2; Start at 19:30 Acetaminophen/ Hydrocodone Bitart ([place] 5-325 Mg) 1 tab Q4H PRN PO PAIN SCALE 3 TO 5 Last administered on 08/08/17 20:39; Start 08/03/17 at 19:30 Morphine Sulfate (Morphine Inj) 2 mg Q3H PRN IV PUSH Pain 6-10 Last administered on 08/09/17 09:35; Start 08/03/17 at 19:30 Senna/Docusate Sodium (Alanna-Colace) 1 tab BID PO Last administered on 08:27; Start 08/03/17 at 21:00 Magnesium Hydroxide (Milk Of Magnesia Liq) 30 ml Q12H PRN PO MILD - MODERATE CONSTIPATION Last administered on 08/07/17 16:42; Start 08/03/17 at 19:30 Sennosides (Senokot) 17.2 mg Q12H PRN PO MODERATE - SEVERE CONSTIPATION; Start 08/03/17 at 19:30 Bisacodyl (Dulcolax Supp) 10 mg DAILY PRN RECTAL SEVERE CONSITIPATION; Start at 19:30 Lactulose (Lactulose Liq) 30 ml DAILY PRN PO SEVERE CONSITIPATION; Start at 19:30 Clopidogrel Bisulfate (Plavix) 75 mg DAILY@1600 PO Last administered on 16:15; Start 08/04/17 at 16:00 Gabapentin (Neurontin) 600 mg QID PO Last administered on 08/09/17 08:26; Start 08/03/17 at 21:00 Insulin Detemir (Levemir Inj) 60 units BID SQ Last administered on 08/07/17 22 :24; Start 08/03/17 at 21:00; Stop 08/08/17 at 12:07; Status DC Pantoprazole Sodium (Protonix) 40 mg DAILY@1600 PO Last administered on 16:15; Start 08/04/17 at 16:00 Gadodiamide (Omniscan Pf Inj) 18 ml STK-MED ONCE IVCONTRAST Last administered on 08/03/17 19:50; Start 08/03/17 at 19:50; Stop 08/03/17 at 19:51; Status DC Vancomycin HCl 2300 mg/Sodium Chloride 523 ml @ 250 mls/hr NOW ONCE IV Last administered on 08/04/17 00:49; Start 08/03/17 at 21:00; Stop 08/03/17 at 23:05 ; Status DC Vancomycin HCl 1500 mg/Sodium Chloride 515 ml @ 250 mls/hr Q12H IV Last administered on 08/05/17 09:10; Start 08/04/17 at 09:00; Stop 08/05/17 at 09:40 ; Status DC Miscellaneous Information SPECIFIC LAB TO BE DILIP... ONCE ONCE .XX Last administered on 08/05/17 08:45; Start 08/05/17 at 08:45; Stop 08/05/17 at 08:46 ; Status DC Iohexol (Omnipaque 350 Inj) 100 ml STK-MED ONCE IVCONTRAST Last administered on 08/04/17 19:38; Start 08/04/17 at 19:38; Stop 08/04/17 at 19:40; Status DC Vancomycin HCl 1750 mg/Sodium Chloride 517.5 ml @ 257.5 mls/ hr Q12H IV Last administered on 08/05/17 22:15; Start 08/05/17 at 21:00; Stop 08/05/17 at 22:48 ; Status DC Miscellaneous Information SPECIFIC LAB TO BE DILIP... ONCE ONCE .XX ; Start 08/07 at 08:45; Stop 08/07/17 at 08:45; Status DC Amlodipine Besylate (Norvasc) 5 mg BID PO Last administered on 08/09/17 08:27 ; Start 08/05/17 at 14:15 Clonidine (Catapres) 0.1 mg Q4H PRN PO SBP>160, DBP>90; Start 08/05/17 at 14:15 Hydralazine HCl (Apresoline) 25 mg Q8HR PO Last administered on 08/09/17 04:38 ; Start 08/05/17 at 22:00 Nifedipine (Procardia Xl) 30 mg NOW ONCE PO Last administered on 08/05/17 20: 53; Start 08/05/17 at 20:00; Stop 08/05/17 at 20:01; Status DC Piperacillin Sod/ Tazobactam Sod 50 ml @ 100 mls/hr Q6H IV Last administered on 08/07/17 10:21; Start 08/05/17 at 23:00; Stop 08/07/17 at 12:51; Status DC Ceftriaxone Sodium 2000 mg/ Sodium Chloride 100 ml @ 200 mls/hr Q24H IV Last administered on 08/08/17 13:14; Start 08/07/17 at 14:00; Stop 09/18/17 at 13:59 Insulin Detemir (Levemir Inj) 30 units BID SQ Last administered on 08/08/17 21 :00; Start 08/08/17 at 21:00 Heparin Sodium/ Sodium Chloride 1,000 ml @ As Directed STK-MED ONCE .ROUTE Last administered on 08/08/17 14:18; Start 08/08/17 at 14:18; Stop 08/08/17 at 14:19; Status DC Midazolam HCl (Versed Inj) 2 mg STK-MED ONCE .ROUTE Last administered on 14:49; Start 08/08/17 at 14:18; Stop 08/08/17 at 14:19; Status DC Fentanyl Citrate (fentaNYL INJ) 100 mcg STK-MED ONCE .ROUTE Last administered on 08/08/17 14:37; Start 08/08/17 at 14:18; Stop 08/08/17 at 14:19; Status DC Heparin Sodium (Porcine) (Heparin Inj) 10,000 units STK-MED ONCE .ROUTE Last administered on 08/08/17 14:48; Start 08/08/17 at 14:18; Stop 08/08/17 at 14:19 ; Status DC Nitroglycerin 5 ml @ As Directed STK-MED ONCE .ROUTE Last administered on 15:02; Start 08/08/17 at 14:18; Stop 08/08/17 at 14:19; Status DC Midazolam HCl (Versed Inj) 2 mg STK-MED ONCE .ROUTE Last administered on 14:36; Start 08/08/17 at 14:48; Stop 08/08/17 at 14:49; Status DC Clopidogrel Bisulfate (Plavix) 300 mg STK-MED ONCE .ROUTE Last administered on 08/08/17 15:23; Start 08/08/17 at 15:20; Stop 08/08/17 at 15:21; Status DC Lactated Ringer's 1,000 ml @ 30 mls/hr Q24H PRN IV SEE LABEL COMMENTS; Start at 08:45; Stop 08/12/17 at 08:44 Sodium Chloride 500 ml @ 30 mls/hr [id number] PRN IV SEE LABEL COMMENTS; Start at 08:45; Stop 08/12/17 at 08:44 Metoprolol Tartrate (Lopressor) 25 mg FRUIT SHIPPER PRN PO SEE LABEL COMMENTS; Start 08/09/17 at 08:45; Stop 08/12/17 at 08:44 Povidone Iodine (Betadine 5% Antisepsis Kit) 1 applic FRUIT SHIPPER PRN EACH NARE SEE LABEL COMMENTS; Start 08/09/17 at 08:45; Stop 08/12/17 at 08:44 Chlorhexidine Gluconate (Chlorhexidine 2% Cloth) 3 pack FRUIT SHIPPER PRN TOPICAL SEE LABEL COMMENTS; Start 08/09/17 at 08:45; Stop 08/12/17 at 08:44 Insulin Human Regular (NovoLIN R INJ) See Protocol Table ... FRUIT SHIPPER PRN SQ SEE PROTOCOL TABLE; Start 08/09/17 at 08:45; Stop 08/12/17 at 08:44 Urinary Catheter: No Vascular Central Line Catheter: No A/P Problem List: (1) Sepsis ICD Code: A41.9 - Sepsis, unspecified organism Status: Acute (2) Osteomyelitis ICD Code: M86.9 - Osteomyelitis, unspecified (3) Hyperkalemia ICD Code: E87.5 - Hyperkalemia (4) HTN (hypertension) ICD Code: I10 - Essential (primary) hypertension (5) DM (diabetes mellitus) ICD Code: E11.9 - Type 2 diabetes mellitus without complications Assessment and Plan 1. Sepsis: HR 110, WBC 25.4, Source-Left Heel Ulcer. S/p Blood Cultures, Vanco/Zosyn in ER. Follow up cultures, continue IV Abx. 2. Osteomyelitis: Left Foot. X-ray w/ erosive changes along posterior calcaneus with possible avulsion injury, MRI Foot with large soft tissue ulcer heal and broad area of osteomyelitis of posterior calcaneus with rupture of Achilles tendon, images reviewed . S/p IV Abx as above, will continue. Consult Podiatry and ID. 3. Hyperkalemia: Mild. K+ 5.5. S/p Insulin/D50 in ER, will repeat in am. 4. HTN: BP 150-160's, likely compounded by pain, optimize pain control, monitor BP. ADD CATAPRES AND HYDRALAZINE FOR BP 5. DM: Sliding scale w/ Accu-Cheks. Resume home Insulin Glycemia monitor blood sugars ANEMIA- AM LABS AND MONITOR VASCULAR ISSUES CONSULT VASCULAR SURGERY REGARDING LEFT LOWER EXTREMITY FROM RADIOLOGICAL STUDIES- TO HAVE VASCULAR PROCEDURE LATER THIS WEEK 6. DVT Prophylaxis: Heparin sq 7. Social work for d/c planning as needed A.m. labs continue on current antibiotic treatment VASCULAR SURGERY CONSULT REGARDING LEFT LE- TO HAVE VASCULAR PROCEDURE TODAY 08/08/2017 PREOPERATIVE DIAGNOSIS Diabetic foot wound left lower extremity. POSTOPERATIVE DIAGNOSIS Diabetic foot wound left lower extremity. PROCEDURE 1. Selective left lower extremity arteriogram. 2. Rechanneling of left superficial femoral artery with balloon angioplasty of the left SFA and above-knee popliteal artery with a 5-mm x 40-mm balloon and then CSI atherectomy SURGEON Dr. Herber REESE RN AND PATIENT STREP BOVIS CONSULT GI-- WILL NEED EGD AND COLONOSCOPY BEFORE DC AM LABS TRANSFUSE IF HGB <7 FOR PODIATRY SURGERY 9-27 TODAY MODERATE RISK FOR SURGERY Problem Qualifiers (1) Sepsis: Qualified Codes: A41.9 - Sepsis, unspecified organism Piyush Zuluaga DO Aug 09, 2017 11:03
[2017-08-09] MEDS ORDERED: MIDAZOLAM HCL 2 MG/2 ML VIAL IV ONE (12:00)
[2017-08-09] MEDS ORDERED: PROPOFOL 200 MG/20 ML AMP IV ONE (12:00)
[2017-08-09] MEDS ORDERED: GLYCOPYRROLATE 1 MG/5 ML SYRINGE IV PUSH ONE (12:00)
[2017-08-09] MEDS ORDERED: ONDANSETRON HCL 4 MG/2 ML VIAL IV PUSH ONE (12:00)
[2017-08-09] MEDS ORDERED: LIDOCAINE HCL 1% PF 5 ML AMPULE OTHER ONE (12:00)
[2017-08-09] MEDS ORDERED: ePHEDrine/NS 25 MG/5 ML SYR IV ONE (12:00)
[2017-08-09] MEDS ORDERED: ROCURONIUM INJ 50 MG/5 ML SYRINGE IV PUSH ONE (12:00)
[2017-08-09] MEDS ORDERED: PHENYLEPH/NS 1000 MCG/10 ML SYR IV ONE (12:00)
[2017-08-09] MEDS ORDERED: DEXAMETHASONE SOD PHOS 4 MG/ML VIAL IV ONE (12:00)
[2017-08-09] MEDS ORDERED: NEOSTIGMINE 3 MG/3 ML SYR IV ONE (12:00)
--- NOTE | 2017-08-09 12:13 | PD.VS.PN ---
Subjective POD #: 1 Procedure(s): left SFA recanalization and balloon angioplasty 5mm x 40mm Subjective/Hospital Course Pt in bed w/o complaints LE warm with motor intact R Groin without swelling or hematoma Objective Vitals/I&O Date Time Temp Pulse Resp B/P (MAP) Pulse Ox O2 Delivery O2 Flow Rate FiO2 08/09/17 11:27 103 08/09/17 08:06 98.0 99 20 130/66 (87) 94 08/09/17 04:00 95 08/09/17 04:00 98.7 102 20 166/73 (104) 91 08/08/17 22:53 97 08/08/17 22:49 104 16 121/56 (77) 93 08/08/17 20:00 98.7 109 20 124/58 (80) 92 08/08/17 12:32 99.0 108 20 134/64 (87) 93 08/09/17 08/09/17 08/09/17 06:59 14:59 22:59 Intake Total 600 ml Output Total 350 ml Balance 250 ml Exam: GENERAL: Afebrile 52/M, A&OX3,GCS15, NAD SKIN: Warm and dry LE warm w/ motor intact R DP palpable Right groin w/o hematoma or swelling Dry gangrene present to Left heel Laboratory Laboratory Tests Test 08/09/17 06:00 White Blood Count 21.7 Red Blood Count 3.41 Hemoglobin 7.6 Hematocrit 24.7 Mean Corpuscular Volume 72.4 Mean Corpuscular Hemoglobin 22.4 Mean Corpuscular Hemoglobin Concent 30.9 Red Cell Distribution Width 18.9 Platelet Count 632 Mean Platelet Volume 7.4 Neutrophils (%) (Auto) 70.8 Lymphocytes (%) (Auto) 17.4 Monocytes (%) (Auto) 7.4 Eosinophils (%) (Auto) 3.3 Basophils (%) (Auto) 1.1 Neutrophils # (Auto) 15.4 Lymphocytes # (Auto) 3.8 Monocytes # (Auto) 1.6 Eosinophils # (Auto) 0.7 Basophils # (Auto) 0.2 CBC Comment DIFF FINAL Differential Comment Blood Urea Nitrogen 18 Creatinine 0.73 Random Glucose 106 Total Protein 5.5 Albumin 1.5 Calcium Level 7.9 Phosphorus Level 3.8 Magnesium Level 2.1 Alkaline Phosphatase 211 Aspartate Amino Transf (AST/SGOT) 15 Alanine Aminotransferase (ALT/SGPT) 18 Total Bilirubin 0.2 Sodium Level 137 Potassium Level 4.1 Chloride Level 106 Carbon Dioxide Level 23.1 Anion Gap 8 Estimat Glomerular Filtration Rate 112 Date/Time Source Procedure Growth Status 08/06/17 11:20 Blood Peripheral Aerobic Blood Culture - Preliminary NO GROWTH IN 3 DAYS Resulted 08/06/17 11:20 Blood Peripheral Anaerobic Blood Culture - Preliminary NO GROWTH IN 3 DAYS Resulted 08/03/17 17:42 Wound Foot Gram Stain - Final Complete 08/03/17 17:42 Wound Culture - Final Crystal Tropicalis Complete Assessment and Plan Assessment: (1) Diabetic ulcer of heel Status: Acute Plan Patient with a chronic diabetic left heel ulcer that is extensive Patient should have debridement via podiatry POD 1, doing well Pt with sufficient perfusion to R LE Plan S/P left SFA recanalization -Patent Emily PRICE [facility]/ [place] [phone] Discharge Planning Will arrange post op f/u Problem Qualifiers (1) Diabetic ulcer of heel: Qualified Codes: E13.621 - Other specified diabetes mellitus with foot ulcer; L97.429 - Non-pressure chronic ulcer of left heel and midfoot with unspecified severity Emily Mirza Aug 09, 2017 12:13
[2017-08-09] MEDS: cefTRIAXone INJ 2,000 MG in SODIUM CHLORIDE 0.9% INJ 100 ML IV SCH (13:53)
[2017-08-09] MEDS: CLOPIDOGREL 75 MG TAB PO SCH (16:25)
[2017-08-09] MEDS: PANTOPRAZOLE SOD 40 MG DELAYED RELEASE TAB PO SCH (16:25)
[2017-08-09] MEDS ORDERED: LIDOCAINE HCL 2% 50 ML VIAL ONE (16:33)
[2017-08-09] MEDS ORDERED: FAMOTIDINE 20 MG/2 ML VIAL ONE (17:13)
[2017-08-09] MEDS ORDERED: GENTAMICIN SULFATE 80 MG/2 ML VIAL IRRIGATION ONE (17:44)
[2017-08-09] MEDS ORDERED: BUPIVACAINE HCL PF 0.5% 30 ML VIAL INFIL ONE (17:47)
[2017-08-09] MEDS ORDERED: DO NOT ADM ANY ANTICOAGULANT DRUGS PRN (19:00)
--- NOTE | 2017-08-09 19:23 | RADRPT ---
EXAM DATE/TIME: 08/09/2017 18:57 [facility] COMPARISON: MRI FOOT LEFT W & W/O CONTRAST, August 03, 2017, 19:20. INDICATIONS : Post op left foot surgery. MEDICAL HISTORY : Diabetes mellitus type II. Hypercholesterolemia. Chronic obstructive pulmonary disease. Gastroe sophageal reflux disease. SURGICAL HISTORY : None. ENCOUNTER: Initial ACUITY: 1 day PAIN SCORE: Non-responsive. LOCATION: Left foot. FINDINGS: Large defect related to surgical debridement now seen at the posterior calcaneus. There is an overlyi ng soft tissue defect. Remaining bone as normal appearing density and without perceptible periosteal reaction. Previous resection of the head of the little toe proximal phalanx noted. I don't see any acute bony a bnormalities of the midfoot or forefoot. CONCLUSION: Large portion of the posterior calcaneus has been surgically resected. Remaining bone has a grossly n ormal radiographic appearance. Jose Francisco Rodriguez MD on August 09, 2017 at 19:20 Board Certified Radiologist. This report was verified electronically.
[2017-08-09] MEDS: ACETAMINOPHEN/HYDROcodone 325 MG/5 MG TAB PO PRN (22:54)
[2017-08-10] VITALS (9 sets, daily range): BP systolic 109–174; BP diastolic 57–74; PULSE 96–104; RESP 17–20; TEMP 97.6–99.1; O2SAT 92–97
[2017-08-10] MEDS: MORPHINE SULFATE 4 MG/ML INJ IV PUSH PRN ×3 (00:02→20:41)
[2017-08-10] MEDS: SODIUM CHLOR 0.9% 1000 ML INJ 1,000 ML IV SCH ×3 (02:18→23:25)
[2017-08-10] MEDS: hydrALAZINE HCL 25 MG TAB PO SCH ×3 (05:13→20:39)
--- NOTE | 2017-08-10 08:21 | MP ---
cc: GRIFFIN GREER DPM DATE OF SURGERY: 08/09/2017 PREOPERATIVE DIAGNOSIS 1. Left heel gangrene, dry and stable. 2. Left heel osteomyelitis. 3. Left heel Achilles rupture. POSTOPERATIVE DIAGNOSIS 1. Left heel gangrene, dry and stable. 2. Left heel osteomyelitis. 3. Left heel Achilles rupture. PROCEDURE 1. Left heel partial calcanectomy. 2. Left ankle I&D. ANESTHESIOLOGIST Dr. Canela. ANESTHESIA General. HEMOSTASIS None. ESTIMATED BLOOD LOSS 150 ccs. MATERIALS 3-0 Nylon. INJECTABLES Postoperatively 0.5% Marcaine plain. BRIEF HISTORY The patient is a 52-year-old male with history of dry stable gangrene, osteomyelitis as well as a ruptured Achilles. He has severe PVD which was repaired by Dr. Esquivel. Given the presentation of the foot the patient understands he is at risk for a left BKA. The patient wanted the care of limb salvage and save the extremity. We discussed a long protracted plan for the patient including partial calcanectomy with debridement of the Achilles tendon. He understands that the wound care will be long, protracted a may include hyperbarics, wound care for several months including wound vac and then ultimately an AFO type brace to maintain stability of his left leg. Risks, benefits, pros and cons were discussed with the patient who freely consented to surgical intervention. No guarantees were given or implied. All questions answered. PROCEDURE IN DETAIL The patient was brought to the operating room and placed on the table. He was placed under general anesthesia and placed on a well padded bed in this prone position. The left leg was prepped, scrubbed and draped in usual sterile aseptic manner after time-out was called. Attention was then directed to the left leg after prep, scrub and drape. The necrotic nonviable tissue of the heel was debrided and passed off the field. An incision was then created along the Achilles and extended proximally through which we were able to debride nonviable necrotic Achilles tissue. It was obviously detached from the calcaneal aspect. The heel was then partially transected and passed off the field. Cultures were taken of the transected calcaneus at the resected border and passed off the field for aerobic , anaerobic and Gram stain culture and sensitivity. A culture was also taken of the devitalized nonviable flap of the posterior calcaneus. The resected calcaneus measured approximately 2.5 x 3 x 4 cm. The incision was copiously irrigated with pulse lavage with normal sterile saline impregnated with 240 of gentamicin. Bleeders were bovied or tied as necessary and the wound was partially closed using a 3-0 Nylon in a simple suture pattern. Well-padded dressings were applied using Adaptic, 4x4s, ABD, Kalpana and David wrap. The patient tolerated the procedure to completion and will be transferred to PACU for brief period of postop monitoring, after which he will be transferred to the floor. The patient is on routine antibiotics. He will be followed up appropriately while in-house. Griffin Greer DPM SR/MARYCHUY /9:33 PM /7:56 AM GREGORY
[2017-08-10] MEDS: INSULIN ASPART SUPPLEMENTAL SCALE SQ SCH ×4 (08:49→21:00)
[2017-08-10] MEDS: amLODIPine BESYLATE 5 MG TAB PO SCH ×2 (08:50→20:39)
[2017-08-10] MEDS: HEPARIN SODIUM - SQ 10,000 UNITS/ML VIAL SQ SCH ×2 (08:50→20:39)
[2017-08-10] MEDS: INSULIN DETEMIR 100 UNITS/ML VIAL SQ SCH ×2 (08:50→21:00)
[2017-08-10] MEDS: GABAPENTIN 300 MG CAP PO SCH ×4 (08:50→20:39)
[2017-08-10] MEDS: DOCUSATE SODIUM 50 MG/SENNA 8.6 MG TAB PO SCH ×2 (08:50→20:39)
[2017-08-10] MEDS: SODIUM CHLORIDE 0.9% FLUSH 10 ML FLUSH IV FLUSH SCH (08:51)
[2017-08-10 08:53] LABS: AUTOMATED NEUTROPHIL # 16.3 TH/MM3 (1.8-7.7); BASOPHIL # 0.2 TH/MM3 (0-0.2); EOSINOPHIL # 0.6 TH/MM3 (0-0.4); EOSINOPHIL % 2.9 % (0.0-4.0); HEMO FLAGS DIFF FINAL; LYMPH % 12.4 % (9.0-44.0); LYMPHOCYTE # 2.6 TH/MM3 (1.0-4.8); MEAN CELL VOLUME 72.2 FL (80.0-100.0); MEAN CORPUSCULAR HEMOGLOBIN 23.3 PG (27.0-34.0); MEAN CORPUSCULAR HGB CONC 32.2 % (32.0-36.0); MONO % 5.6 % (0.0-8.0); NEUT % 78.1 % (16.0-70.0); PLATELET COUNT 677 TH/MM3 (150-450); RED BLOOD COUNT 3.47 MIL/MM3 (4.50-5.90); WHITE BLOOD COUNT 20.8 TH/MM3 (4.0-11.0)
--- NOTE | 2017-08-10 09:10 | HHI.GIFU ---
GI Follow-up Note Consult Follow-up Subjective: Patient laying in bed comfortably--he had right foot surgery yesterday. Tolerating diet. no overt GI bleeding. Objective: PHYSICAL EXAMINATION: Vitals signs stable No fever CHEST: Chest is clear to auscultation and percussion. CARDIAC: Irregular rate and rhythm with no murmur gallop or rubs. ABDOMEN: Soft, nondistended, nontender; no hepatosplenomegaly; bowel sounds are present in all four quadrants. EXTREMITIES: No clubbing, cyanosis, or edema. SKIN: no jaundice. RIVETER PNEUMATIC: No focal deficits; alert and oriented times three. Available Data (labs, X- Rays, Procedues) : ASSESSMENT/PLAN: 1. Strep Bovis bacteremia-need to r/o an occult colon cancer 2. Hx of adenomatous colon polyps 3. Dysphagia-better PLAN: 1. pt feels he cannot do prep at present (for colon). 2. please call us when he is ready for the procedures (EGD/Dil/Colon) as an inpt -o/w will do as outpt It was a pleasure seeing Adilson Lehman. Thank you for this consult. Entered by: Aron Cortez MD Aug 10, 2017 09:10
[2017-08-10 09:18] LABS: ANION GAP 8 MEQ/L (5-15); BICARBONATE 24.1 MEQ/L (21.0-32.0); BLOOD UREA NITROGEN 16 MG/DL (7-18); CHLORIDE 103 MEQ/L (98-107); GLOMERULAR FILTRATION RATE 100 ML/MIN (>89); POTASSIUM 4.2 MEQ/L (3.5-5.1); SODIUM (NA) 135 MEQ/L (136-145)
[2017-08-10 09:20] LABS: AST (GOT) 14 U/L (15-37)
[2017-08-10 09:23] LABS: ALKALINE PHOSPHATASE 208 U/L (45-117); ALT (GPT) 18 U/L (12-78); TOTAL BILIRUBIN ADULT 0.2 MG/DL (0.2-1.0)
--- NOTE | 2017-08-10 10:59 | HHI.PR ---
Subjective Remarks This is a 52-year-old male with a PMH of HTN, DM, Peripheral Neuropathy, PVD and Chronic Left Foot Ulcer who was referred to the ER by PCP, Dr. Hernandez, for admission and further evaluation of left heel ulcer. Patient with chronic ulcer for the last 4 months, currently under Wound Care, states he recently completed antibiotics for left heel infection, was seen by PCP today and instructed to come to ER. Per pt, progressive pain to left heel especially w/ ambulation, today felt a 'crunch" followed by intense pain. On arrival, BP 126/ 68, HR 110, O2 sat 99% on RA, Afebrile. WBC 25.4. K+ 5.5. Lactic Acid 1.3. INR 1.2. LE Doppler negative for DVT. Foot X-ray w/ erosive changes along posterior calcaneus with possible avulsion injury. MRI Foot with large soft tissue ulcer of the heel with broad area of osteomyelitis of the posterior calcaneus, Achilles tendon ruptured at its insertion. S/p Vanc/Zosyn in ER 08-04 await infectious disease as well as podiatry evaluation No new complaints Is on vancomycin and Zosyn discussed with patient and RN 08-05 RADIOLOGY RESULTS REVIEWED- CONSULT VASCULAR FOR EVAL OF LEFT LE ADJUST BP MEDS 08-06 STREP BOVIS ON MICRO- CONSULT GI DW RN AND PT AND ID- CONSULT GI FOR SURGERY EARLY THIS WEEK REGARDING LEFT LE PER VASCULAR SURGERY AM LABS NEEDS TO KEEP LEFT FOOT FLOATING 08-07 TO GO FOR PROCEDURE ON LEFT LE TODAY WITH VASCULAR SURGERY NO NEW COMPLAINTS MONITOR ANEMIA--IS ON FLUIDS MAY BE DILUTIONAL AM LABS DW RN AND PT 08-08 POSSIBLY FOR SURGERY TODAY- NPO MONITOR HEMOGLOBIN HAS WEAKNESS BL LE, BOTH LEFT AND RIGHT AM LABS 08-09 MODERATE RISK FOR SURGERY TO GO FOR SURGERY TODAY DATE OF SURGERY HAD [id number]/08/2017 PREOPERATIVE DIAGNOSIS Diabetic foot wound left lower extremity. POSTOPERATIVE DIAGNOSIS Diabetic foot wound left lower extremity. PROCEDURE 1. Selective left lower extremity arteriogram. 2. Rechanneling of left superficial femoral artery with balloon angioplasty of the left SFA and above-knee popliteal artery with a 5-mm x 40-mm balloon and then CSI atherectomy SURGEON Dr. Herber Esquivel TO GO FOR SURGERY WITH PODIATRY TODAY DATE OF SURGERY: 08/09/2017 PREOPERATIVE DIAGNOSIS 1. Left heel gangrene, dry and stable. 2. Left heel osteomyelitis. 3. Left heel Achilles rupture. POSTOPERATIVE DIAGNOSIS 1. Left heel gangrene, dry and stable. 2. Left heel osteomyelitis. 3. Left heel Achilles rupture. PROCEDURE 1. Left heel partial calcanectomy. 2. Left ankle I&D. 08-10 HAVING SLURRED SPEECH AND DIFFICULTY SPEAKING AND GETTING WORDS OUT WILL GET CT OF HEAD NOW AND CAROTIDS AND START ON ASPIRIN WELL CONTINUE HIS PLAVIX NOT CURRENTLY COMPLAINING OF MUCH AT THIS TIME Objective Vitals Vital Signs Date Time Temp Pulse Resp B/P (MAP) Pulse Ox O2 Delivery O2 Flow Rate FiO2 08/10/17 08:45 93 21 08/10/17 07:59 99.1 100 20 138/65 (89) 92 08/10/17 05:05 99.0 97 17 122/72 (89) 93 08/10/17 00:30 98.3 96 17 109/57 (74) 93 08/09/17 21:30 96 08/09/17 20:13 98.0 97 20 131/62 (85) 97 08/09/17 19:00 99 21 142/63 (89) 96 Nasal Cannula 4 08/09/17 18:45 99 20 151/70 (97) 95 Nasal Cannula 4 08/09/17 18:40 98.2 101 20 146/67 (93) 97 Nasal Cannula 4 08/09/17 15:53 98.4 97 20 139/66 (90) 94 08/09/17 12:06 98.1 100 20 150/68 (95) 94 08/09/17 11:27 103 I/O 08/09/17 08/09/17 08/09/17 08/10/17 08/10/17 08/10/17 07:00 15:00 23:00 07:00 15:00 23:00 Intake Total 600 ml 940 ml 240 ml Output Total 350 ml 150 ml 400 ml Balance 250 ml 790 ml -160 ml Intake Oral 240 ml 240 ml IV Total 600 ml Other 700 ml Output Urine Total 350 ml 400 ml Estimated Blood Loss 150 ml # Voids 3 # Bowel Movements 1 Result Diagram: 08/10/1718 08/10/1718 Other Results Laboratory Tests Test 08/07/17 11:21 08/08/17 08:03 08/09/17 06:00 08/10/17 08:18 Hemoglobin 8.4 GM/DL 7.6 GM/DL 7.6 GM/DL 8.1 GM/DL Hematocrit 26.6 % 23.3 % 24.7 % 25.0 % Blood Urea Nitrogen 12 MG/DL 15 MG/DL 18 MG/DL 16 MG/DL Creatinine 0.83 MG/DL 0.77 MG/DL 0.73 MG/DL 0.81 MG/DL Random Glucose 190 MG/DL 70 MG/DL 106 MG/DL 112 MG/DL Total Protein 5.8 GM/DL 5.4 GM/DL 5.5 GM/DL 5.5 GM/DL Albumin 1.6 GM/DL 1.6 GM/DL 1.5 GM/DL 1.6 GM/DL Calcium Level 8.0 MG/DL 7.8 MG/DL 7.9 MG/DL 8.0 MG/DL Alkaline Phosphatase 218 U/L 198 U/L 211 U/L 208 U/L Aspartate Amino Transf (AST/SGOT) 17 U/L 16 U/L 15 U/L 14 U/L Alanine Aminotransferase (ALT/SGPT) 17 U/L 18 U/L 18 U/L 18 U/L Total Bilirubin 0.3 MG/DL 0.1 MG/DL 0.2 MG/DL 0.2 MG/DL Sodium Level 135 MEQ/L 138 MEQ/L 137 MEQ/L 135 MEQ/L Potassium Level 4.4 MEQ/L 4.1 MEQ/L 4.1 MEQ/L 4.2 MEQ/L Chloride Level 103 MEQ/L 105 MEQ/L 106 MEQ/L 103 MEQ/L Carbon Dioxide Level 25.0 MEQ/L 25.2 MEQ/L 23.1 MEQ/L 24.1 MEQ/L Anion Gap 7 MEQ/L 8 MEQ/L 8 MEQ/L 8 MEQ/L Estimat Glomerular Filtration Rate 97 ML/MIN 106 ML/MIN 112 ML/MIN 100 ML/MIN White Blood Count 17.9 TH/MM3 21.7 TH/MM3 20.8 TH/MM3 Red Blood Count 3.23 MIL/MM3 3.41 MIL/MM3 3.47 MIL/MM3 Mean Corpuscular Volume 72.3 FL 72.4 FL 72.2 FL Mean Corpuscular Hemoglobin 23.5 PG 22.4 PG 23.3 PG Mean Corpuscular Hemoglobin Concent 32.4 % 30.9 % 32.2 % Red Cell Distribution Width 18.9 % 18.9 % 19.0 % Platelet Count 523 TH/MM3 632 TH/MM3 677 TH/MM3 Mean Platelet Volume 7.4 FL 7.4 FL 7.1 FL Neutrophils (%) (Auto) 68.5 % 70.8 % 78.1 % Lymphocytes (%) (Auto) 18.8 % 17.4 % 12.4 % Monocytes (%) (Auto) 7.2 % 7.4 % 5.6 % Eosinophils (%) (Auto) 4.4 % 3.3 % 2.9 % Basophils (%) (Auto) 1.1 % 1.1 % 1.0 % Neutrophils # (Auto) 12.2 TH/MM3 15.4 TH/MM3 16.3 TH/MM3 Lymphocytes # (Auto) 3.4 TH/MM3 3.8 TH/MM3 2.6 TH/MM3 Monocytes # (Auto) 1.3 TH/MM3 1.6 TH/MM3 1.2 TH/MM3 Eosinophils # (Auto) 0.8 TH/MM3 0.7 TH/MM3 0.6 TH/MM3 Basophils # (Auto) 0.2 TH/MM3 0.2 TH/MM3 0.2 TH/MM3 CBC Comment DIFF FINAL DIFF FINAL DIFF FINAL Differential Comment Phosphorus Level 2.8 MG/DL 3.8 MG/DL 3.9 MG/DL Magnesium Level 2.0 MG/DL 2.1 MG/DL 2.0 MG/DL Imaging Last Impressions Foot X-Ray 08/09/17 0000 Signed Impressions: Service Date/Time: Wednesday, August 09, 2017 18:57 - CONCLUSION: Large portion of the posterior calcaneus has been surgically resected. Remaining bone has a grossly normal radiographic appearance. Jose Francisco Rodriguez MD Lower Extremity Ultrasound 08/05/17 0000 Signed Impressions: Service Date/Time: Saturday, August 05, 2017 18:13 - CONCLUSION: Negative exam with no evidence of deep venous thrombosis. Stone Sexton MD Aorta w/Runoff CTA 08/04/17 0000 Signed Impressions: Service Date/Time: Friday, August 04, 2017 19:29 - CONCLUSION: 1. Severe atherosclerotic disease. There is a focal short segment high-grade stenosis of the distal left superficial femoral artery. This stenosic segment measures approximately 1 cm in length and represents a change from the prior study. Remaining left lower extremity arterial vessels demonstrate no significant change from the prior exam. 2. Moderate narrowing of the proximal superior mesenteric artery secondary to noncalcified plaque. This finding is stable. 3. Small bilateral pleural effusions with associated compressive atelectasis. Jose Francisco Rogers MD Foot MRI 08/03/17 0000 Signed Impressions: Service Date/Time: , August 03, 2017 19:20 - CONCLUSION: Large soft tissue ulcer of the heel and with a broad area of osteomyelitis of the posterior calcaneus. The Achilles tendon is ruptured at its insertion. No drainable abscess. Jose Francisco Rodriguez MD Objective Remarks GENERAL: Awake alert oriented talkative and cooperative SKIN: Warm and dry. Left heel with large open wound HEAD: Atraumatic. Normocephalic. EYES: Pupils equal and round. No scleral icterus. No injection or drainage. EOMI ENT: No nasal bleeding or discharge. Mucous membranes pink and moist. Tongue is midline NECK: Trachea midline. No JVD. Supple CARDIOVASCULAR: Regular rate and rhythm. S1-S2 no S3 or S4 RESPIRATORY: No accessory muscle use. Clear to auscultation. Breath sounds equal bilaterally. GASTROINTESTINAL: Abdomen soft, non-tender, nondistended. Hepatic and splenic margins not palpable. MUSCULOSKELETAL: Extremities without clubbing, cyanosis, or edema. No obvious deformities. Left heel large ulcer WITH BLACK AREA NEUROLOGICAL: Awake and alert. No obvious cranial nerve deficits. Motor grossly within normal limits. 4 out of 5 muscle strength in the arms and legs. Normal speech. PSYCHIATRIC: Appropriate mood and affect; insight and judgment ABnormal. Procedures DATE OF SURGERY 08/08/2017 PREOPERATIVE DIAGNOSIS Diabetic foot wound left lower extremity. POSTOPERATIVE DIAGNOSIS Diabetic foot wound left lower extremity. PROCEDURE 1. Selective left lower extremity arteriogram. 2. Rechanneling of left superficial femoral artery with balloon angioplasty of the left SFA and above-knee popliteal artery with a 5-mm x 40-mm balloon and then I atherectomy SURGEON Dr. Herber Esquivel GRIFFIN HADDAD DPM DATE OF SURGERY: 08/09/2017 PREOPERATIVE DIAGNOSIS 1. Left heel gangrene, dry and stable. 2. Left heel osteomyelitis. 3. Left heel Achilles rupture. POSTOPERATIVE DIAGNOSIS 1. Left heel gangrene, dry and stable. 2. Left heel osteomyelitis. 3. Left heel Achilles rupture. PROCEDURE 1. Left heel partial calcanectomy. 2. Left ankle I&D. Medications and IVs Current Medications Sodium Chloride 1,000 ml @ 1,000 mls/hr Q1H IV Last administered on 08/03/17 18:02; Start 08/03/17 at 17:03; Stop 08/03/17 at 18:02; Status DC Vancomycin HCl 1000 mg/Sodium Chloride 250 ml @ 250 mls/hr ONCE ONCE IV Last administered on 08/03/17 19:24; Start 08/03/17 at 17:15; Stop 08/03/17 at 18:14 ; Status DC Piperacillin Sod/ Tazobactam Sod 50 ml @ 100 mls/hr ONCE ONCE IV Last administered on 08/03/17 18:02; Start 08/03/17 at 17:15; Stop 08/03/17 at 17:44 ; Status DC Insulin Human Regular (NovoLIN R INJ) 5 units ONCE ONCE IV PUSH ; Start at 19:00; Stop 08/03/17 at 19:01; Status DC Sodium Polystyrene Sulfonate (Kayexalate Liq) 15 gm ONCE ONCE PO Last administered on 08/03/17 20:19; Start 08/03/17 at 19:00; Stop 08/03/17 at 19:01 ; Status DC Sodium Chloride 1,000 ml @ 1,000 mls/hr Q1H IV Last administered on 08/03/17 20:19; Start 08/03/17 at 19:01; Stop 08/03/17 at 20:00; Status DC Dextrose (D50w (Syr) Inj) 50 ml UNSCH PRN IV PUSH HYPOGLYCEMIA-SEE COMMENTS; Start 08/03/17 at 19:30 Glucagon (Glucagon Inj) 1 mg UNSCH PRN OTHER HYPOGLYCEMIA-SEE COMMENTS; Start 08/03/17 at 19:30 Insulin Aspart (NovoLOG SUPPLEMENTAL SCALE) 1 ACHS SLIDING SCALE SQ Last administered on 08/08/17 21:00; Start 08/03/17 at 21:00 Pharmacy Profile Note 0 ml @ 0 mls/hr UNSCH OTHER ; Start 08/03/17 at 19:30; Stop 08/05/17 at 22:48; Status DC Cefepime HCl 1000 mg/Sodium Chloride 100 ml @ 200 mls/hr DAILY IV Last administered on 08/05/17 08:13; Start 08/04/17 at 09:00; Stop 08/05/17 at 22:48 ; Status DC Sodium Chloride 1,000 ml @ 100 mls/hr Q10H IV Last administered on 08/10/17 09:53; Start 08/03/17 at 19:30 Sodium Chloride (NS Flush) 2 ml UNSCH PRN IV FLUSH FLUSH AFTER USING IV ACCESS Last administered on 08/04/17 02:54; Start 08/03/17 at 19:30 Sodium Chloride (NS Flush) 2 ml BID IV FLUSH Last administered on 08/09/17 22: 07; Start 08/03/17 at 21:00 Ondansetron HCl (Zofran Inj) 4 mg Q6H PRN IVP NAUSEA OR VOMITING Last administered on 08/03/17 21:08; Start 08/03/17 at 19:30 Heparin Sodium (Porcine) (Heparin Inj) 5,000 units Q12H SQ Last administered on 08/08/17 20:41; Start 08/04/17 at 09:00 Acetaminophen (Tylenol) 650 mg Q6H PRN PO FEVER/PAIN SCALE 1 TO 2; Start at 19:30 Acetaminophen/ Hydrocodone Bitart ([place] 5-325 Mg) 1 tab Q4H PRN PO PAIN SCALE 3 TO 5 Last administered on 08/09/17 22:54; Start 08/03/17 at 19:30 Morphine Sulfate (Morphine Inj) 2 mg Q3H PRN IV PUSH Pain 6-10 Last administered on 08/10/17 05:14; Start 08/03/17 at 19:30 Senna/Docusate Sodium (Alanna-Colace) 1 tab BID PO Last administered on 08:50; Start 08/03/17 at 21:00 Magnesium Hydroxide (Milk Of Magnesia Liq) 30 ml Q12H PRN PO MILD - MODERATE CONSTIPATION Last administered on 08/07/17 16:42; Start 08/03/17 at 19:30 Sennosides (Senokot) 17.2 mg Q12H PRN PO MODERATE - SEVERE CONSTIPATION; Start 08/03/17 at 19:30 Bisacodyl (Dulcolax Supp) 10 mg DAILY PRN RECTAL SEVERE CONSITIPATION; Start at 19:30 Lactulose (Lactulose Liq) 30 ml DAILY PRN PO SEVERE CONSITIPATION; Start at 19:30 Clopidogrel Bisulfate (Plavix) 75 mg DAILY@1600 PO Last administered on 16:25; Start 08/04/17 at 16:00 Gabapentin (Neurontin) 600 mg QID PO Last administered on 08/10/17 08:50; Start 08/03/17 at 21:00 Insulin Detemir (Levemir Inj) 60 units BID SQ Last administered on 08/07/17 22 :24; Start 08/03/17 at 21:00; Stop 08/08/17 at 12:07; Status DC Pantoprazole Sodium (Protonix) 40 mg DAILY@1600 PO Last administered on 16:25; Start 08/04/17 at 16:00 Gadodiamide (Omniscan Pf Inj) 18 ml STK-MED ONCE IVCONTRAST Last administered on 08/03/17 19:50; Start 08/03/17 at 19:50; Stop 08/03/17 at 19:51; Status DC Vancomycin HCl 2300 mg/Sodium Chloride 523 ml @ 250 mls/hr NOW ONCE IV Last administered on 08/04/17 00:49; Start 08/03/17 at 21:00; Stop 08/03/17 at 23:05 ; Status DC Vancomycin HCl 1500 mg/Sodium Chloride 515 ml @ 250 mls/hr Q12H IV Last administered on 08/05/17 09:10; Start 08/04/17 at 09:00; Stop 08/05/17 at 09:40 ; Status DC Miscellaneous Information SPECIFIC LAB TO BE DILIP... ONCE ONCE .XX Last administered on 08/05/17 08:45; Start 08/05/17 at 08:45; Stop 08/05/17 at 08:46 ; Status DC Iohexol (Omnipaque 350 Inj) 100 ml STK-MED ONCE IVCONTRAST Last administered on 08/04/17 19:38; Start 08/04/17 at 19:38; Stop 08/04/17 at 19:40; Status DC Vancomycin HCl 1750 mg/Sodium Chloride 517.5 ml @ 257.5 mls/ hr Q12H IV Last administered on 08/05/17 22:15; Start 08/05/17 at 21:00; Stop 08/05/17 at 22:48 ; Status DC Miscellaneous Information SPECIFIC LAB TO BE DILIP... ONCE ONCE .XX ; Start 08/07 at 08:45; Stop 08/07/17 at 08:45; Status DC Amlodipine Besylate (Norvasc) 5 mg BID PO Last administered on 08/10/17 08:50 ; Start 08/05/17 at 14:15 Clonidine (Catapres) 0.1 mg Q4H PRN PO SBP>160, DBP>90; Start 08/05/17 at 14:15 Hydralazine HCl (Apresoline) 25 mg Q8HR PO Last administered on 08/10/17 05:13 ; Start 08/05/17 at 22:00 Nifedipine (Procardia Xl) 30 mg NOW ONCE PO Last administered on 08/05/17 20: 53; Start 08/05/17 at 20:00; Stop 08/05/17 at 20:01; Status DC Piperacillin Sod/ Tazobactam Sod 50 ml @ 100 mls/hr Q6H IV Last administered on 08/07/17 10:21; Start 08/05/17 at 23:00; Stop 08/07/17 at 12:51; Status DC Ceftriaxone Sodium 2000 mg/ Sodium Chloride 100 ml @ 200 mls/hr Q24H IV Last administered on 08/09/17 13:53; Start 08/07/17 at 14:00; Stop 09/18/17 at 13:59 Insulin Detemir (Levemir Inj) 30 units BID SQ Last administered on 08/10/17 08 :50; Start 08/08/17 at 21:00 Heparin Sodium/ Sodium Chloride 1,000 ml @ As Directed STK-MED ONCE .ROUTE Last administered on 08/08/17 14:18; Start 08/08/17 at 14:18; Stop 08/08/17 at 14:19; Status DC Midazolam HCl (Versed Inj) 2 mg STK-MED ONCE .ROUTE Last administered on 14:49; Start 08/08/17 at 14:18; Stop 08/08/17 at 14:19; Status DC Fentanyl Citrate (fentaNYL INJ) 100 mcg STK-MED ONCE .ROUTE Last administered on 08/08/17 14:37; Start 08/08/17 at 14:18; Stop 08/08/17 at 14:19; Status DC Heparin Sodium (Porcine) (Heparin Inj) 10,000 units STK-MED ONCE .ROUTE Last administered on 08/08/17 14:48; Start 08/08/17 at 14:18; Stop 08/08/17 at 14:19 ; Status DC Nitroglycerin 5 ml @ As Directed STK-MED ONCE .ROUTE Last administered on 15:02; Start 08/08/17 at 14:18; Stop 08/08/17 at 14:19; Status DC Midazolam HCl (Versed Inj) 2 mg STK-MED ONCE .ROUTE Last administered on 14:36; Start 08/08/17 at 14:48; Stop 08/08/17 at 14:49; Status DC Clopidogrel Bisulfate (Plavix) 300 mg STK-MED ONCE .ROUTE Last administered on 08/08/17 15:23; Start 08/08/17 at 15:20; Stop 08/08/17 at 15:21; Status DC Lactated Ringer's 1,000 ml @ 30 mls/hr Q24H PRN IV SEE LABEL COMMENTS; Start at 08:45; Stop 08/09/17 at 18:53; Status DC Sodium Chloride 500 ml @ 30 mls/hr [id number] PRN IV SEE LABEL COMMENTS; Start at 08:45; Stop 08/09/17 at 18:53; Status DC Metoprolol Tartrate (Lopressor) 25 mg B[employer]ACH[employer] OFFBEARER PRN PO SEE LABEL COMMENTS; Start 08/09/17 at 08:45; Stop 08/09/17 at 18:53; Status DC Povidone Iodine (Betadine 5% Antisepsis Kit) 1 applic [employer] OFFBEARER PRN EACH NARE SEE LABEL COMMENTS; Start 08/09/17 at 08:45; Stop 08/09/17 at 18:53; Status DC Chlorhexidine Gluconate (Chlorhexidine 2% Cloth) 3 pack [employer]ACH[employer] OFFBEARER PRN TOPICAL SEE LABEL COMMENTS; Start 08/09/17 at 08:45; Stop 08/09/17 at 18:53; Status DC Insulin Human Regular (NovoLIN R INJ) See Protocol Table ... B[employer]ACH[employer] OFFBEARER PRN SQ SEE PROTOCOL TABLE; Start 08/09/17 at 08:45; Stop 08/09/17 at 18:53; Status DC Iohexol (OMNIPAQUE 350 INJ (Head Of Loss Prevention)) 100 ml STK-MED ONCE OTHER ; Start at 14:10; Stop 08/09/17 at 12:13; Status DC Lidocaine HCl (Xylocaine 2% Inj) 50 ml STK-MED ONCE .ROUTE Last administered on 08/09/17 17:00; Start 08/09/17 at 16:33; Stop 08/09/17 at 16:34; Status DC Famotidine (Pepcid Inj) 20 mg STK-MED ONCE .ROUTE ; Start 08/09/17 at 17:13; Stop 08/09/17 at 17:14; Status DC Gentamicin Sulfate (Gentamicin Inj) 240 mg ONCE ONCE IRRIGATION Last administered on 08/09/17 17:47; Start 08/09/17 at 17:44; Stop 08/09/17 at 17:47 ; Status DC Bupivacaine HCl (Marcaine Pf 0.5% Inj) 30 ml ONCE ONCE INFIL ; Start 08/09/17 at 17:47; Stop 08/09/17 at 18:42; Status DC Miscellaneous Information ALL NURSING DEPARTME... UNSCH PRN .XX SEE LABEL COMMENTS; Start 08/09/17 at 19:00; Stop 08/10/17 at 18:59 Aspirin (Aspirin) 325 mg ONCE ONCE PO ; Start 08/10/17 at 10:45; Stop 08/10/17 at 10:46; Status UNV Aspirin (Aspirin) 325 mg DAILY PO ; Start 08/11/17 at 09:00; Status UNV Urinary Catheter: No Vascular Central Line Catheter: No A/P Problem List: (1) Sepsis ICD Code: A41.9 - Sepsis, unspecified organism Status: Acute (2) Osteomyelitis ICD Code: M86.9 - Osteomyelitis, unspecified (3) Hyperkalemia ICD Code: E87.5 - Hyperkalemia (4) HTN (hypertension) ICD Code: I10 - Essential (primary) hypertension (5) DM (diabetes mellitus) ICD Code: E11.9 - Type 2 diabetes mellitus without complications Assessment and Plan 1. Sepsis: HR 110, WBC 25.4, Source-Left Heel Ulcer. S/p Blood Cultures, Vanco/Zosyn in ER. Follow up cultures, continue IV Abx. 2. Osteomyelitis: Left Foot. X-ray w/ erosive changes along posterior calcaneus with possible avulsion injury, MRI Foot with large soft tissue ulcer heal and broad area of osteomyelitis of posterior calcaneus with rupture of Achilles tendon, images reviewed . S/p IV Abx as above, will continue. Consult Podiatry and ID. 3. Hyperkalemia: Mild. K+ 5.5. S/p Insulin/D50 in ER, will repeat in am. 4. HTN: BP 150-160's, likely compounded by pain, optimize pain control, monitor BP. ADD CATAPRES AND HYDRALAZINE FOR BP 5. DM: Sliding scale w/ Accu-Cheks. Resume home Insulin Glycemia monitor blood sugars ANEMIA- AM LABS AND MONITOR VASCULAR ISSUES CONSULT VASCULAR SURGERY REGARDING LEFT LOWER EXTREMITY FROM RADIOLOGICAL STUDIES- TO HAVE VASCULAR PROCEDURE LATER THIS WEEK 6. DVT Prophylaxis: Heparin sq 7. Social work for d/c planning as needed A.m. labs continue on current antibiotic treatment VASCULAR SURGERY CONSULT REGARDING LEFT LE- TO HAVE VASCULAR PROCEDURE TODAY 08/08/2017 PREOPERATIVE DIAGNOSIS Diabetic foot wound left lower extremity. POSTOPERATIVE DIAGNOSIS Diabetic foot wound left lower extremity. PROCEDURE 1. Selective left lower extremity arteriogram. 2. Rechanneling of left superficial femoral artery with balloon angioplasty of the left SFA and above-knee popliteal artery with a 5-mm x 40-mm balloon and then CSI atherectomy SURGEON Dr. Herber REESE RN AND PATIENT STREP BOVIS CONSULT GI-- WILL NEED EGD AND COLONOSCOPY BEFORE DC AM LABS TRANSFUSE IF HGB <7 FOR PODIATRY SURGERY 08-09 TODAY MODERATE RISK FOR SURGERY HAD PODIATRY SURGERY 08-09 DATE OF SURGERY: 08/09/2017 PREOPERATIVE DIAGNOSIS 1. Left heel gangrene, dry and stable. 2. Left heel osteomyelitis. 3. Left heel Achilles rupture. POSTOPERATIVE DIAGNOSIS 1. Left heel gangrene, dry and stable. 2. Left heel osteomyelitis. 3. Left heel Achilles rupture. PROCEDURE 1. Left heel partial calcanectomy. 2. Left ankle I&D. HAVING STROKE LIKE SYMPTOMS WORD FINDING CONFUSION WILL GET STAT CT HEAD DW RN ADD ASA 325 MG PO DAILY US OF CAROTIDS Problem Qualifiers (1) Sepsis: Qualified Codes: A41.9 - Sepsis, unspecified organism Piyush Zuluaga DO Aug 10, 2017 10:59
[2017-08-10] MEDS ORDERED: ASPIRIN 325 MG TAB PO ONE (11:00)
--- NOTE | 2017-08-10 12:01 | RADRPT ---
EXAM DATE/TIME: 08/10/2017 11:34 [facility] COMPARISON: No previous studies available for comparison. INDICATIONS : Slurred speech. RADIATION DOSE: 36.53 CTDIvol (mGy) MEDICAL HISTORY : Diabetes mellitus type 2. Cardiovascular disease Chronic obstructive pulmonary disease. SURGICAL HISTORY : None. ENCOUNTER: Initial ACUITY: 1 day PAIN SCALE: 0/10 LOCATION: cranial TECHNIQUE: Multiple contiguous axial images were obtained of the head. Using automated exposure control and adj ustment of the mA and/or kV according to patient size, radiation dose was kept as low as reasonably a chievable to obtain optimal diagnostic quality images. DICOM format image data is available electro nically for review and comparison. FINDINGS: There is an evolving stroke in the left parieto-occipital mid to high convexity region without eviden ce of associated hemorrhage. A small focus of diminished density is present in the left high convexit y frontal subcortical white matter, nonspecific. No significant regional or global mass effect. The v entricles are symmetric and normal. There is no evidence of brain mass. Posterior fossa and brainstem structures are unremarkable. Extracranial structures are benign and intact. CONCLUSION: Evolving left parieto-occipital stroke. No evidence of hemorrhage. Jose Francisco Colon MD on August 10, 2017 at 11:55 Board Certified Radiologist. This report was verified electronically.
[2017-08-10] MEDS ORDERED: SODIUM CHLORIDE 0.9% FLUSH 5 ML FLUSH IV FLUSH PRN (12:45)
[2017-08-10] MEDS: cefTRIAXone INJ 2,000 MG in SODIUM CHLORIDE 0.9% INJ 100 ML IV SCH (13:15)
--- NOTE | 2017-08-10 14:39 | RADRPT ---
EXAM DATE/TIME: 08/10/2017 12:29 [facility] COMPARISON: US CAROTID ARTERIES, January 05, 2016, 11:26. INDICATIONS : cerebrovascular accident. MEDICAL HISTORY : Hypercholesterolemia. Chronic obstructive pulmonary disease. Gastroesophageal reflux disease. Blind. Neck pain. Neuropathy. Numbness. Arthritis. Hiatal hernia. Diabetes. Squamous cell/basal skin cancer. MRSA. SURGICAL HISTORY : Teeth removed. Blood clot removed from right arm. Left leg wound debridement. D & C right thigh. ENCOUNTER: Initial ACUITY: 1 day PAIN SCORE: 0/10 LOCATION: Bilateral PEAK SYSTOLIC VELOCITIES (cm/sec): ICA/CCA RATIO: Right: 1.4 Left: 0.1 ICA: Right: 92 Left: 7 CCA: Right: 127 Left: 66 ECA: Right: 239 Left: 161 VERTEBRAL: Right: 112 antegrade Left: 113 antegrade Elevated flow velocities and ICA/CCA ratios have been found to correlate with increased degrees of vessel stenosis, calculated as percentage of diameter relative to a normal segment of distal ICA/CCA FINDINGS: RIGHT CAROTID: Mild calcified plaque in the carotid bulb extending to the origin of the internal carotid artery with resultant mild stenosis. Elevated external carotid artery velocities consistent with at least modera te stenosis. LEFT CAROTID: Occlusive noncalcified plaque and likely thrombus at the origin of the left internal carotid artery. VERTEBRAL ARTERIES: Antegrade flow is seen in both vertebral arteries. MISCELLANEOUS: None. CONCLUSION: 1. Apparent occlusive non-calcified plaque and thrombus in the left internal carotid origin. 2. Mild, less than 50%, stenosis of the right internal carotid artery secondary to calcified plaque e xtending from the carotid bulb. 3. Antegrade vertebral artery flow. Eder Biggs MD on August 10, 2017 at 14:23 Board Certified Radiologist. This report was verified electronically.
[2017-08-10 15:38] LABS: CREATINE KINASE 15 U/L (39-308)
[2017-08-10] MEDS: PANTOPRAZOLE SOD 40 MG DELAYED RELEASE TAB PO SCH (17:01)
[2017-08-10] MEDS: CLOPIDOGREL 75 MG TAB PO SCH (17:01)
--- NOTE | 2017-08-10 18:34 | RADRPT ---
EXAM DATE/TIME: 08/10/2017 18:07 [facility] COMPARISON: US CAROTID ARTERIES, August 10, 2017, 12:29. CT BRAIN W/O CONTRAST, August 10, 2017, 11:34. INDICATIONS : CVA. MEDICAL HISTORY : Diabetes mellitus type 2. Hypertension. Chronic obstructive pulmonary disease. SURGICAL HISTORY : Debridement of bilateral feet. ENCOUNTER: Subsequent ACUITY: 1 day PAIN SCORE: 0/10 LOCATION: Head. Please note a normal MRA of the brain does not entirely exclude the possibility of a small aneurysm, nor the possibility of distal intracranial vessel disease. TECHNIQUE: 3D time of flight MRA was performed. Source images, multiplanar STS MIP, and 3D volume MIP reconstru ctions were reviewed. FINDINGS: Left internal carotid artery is occluded. However, there is decent filling of the left middle and ant erior Cheli bral arteries through the [place] of [place], only mildly decreased relative to the right. Po steriorly, there is patchy luminal irregularity of the basilar artery typical of atherosclerosis but good filling of both posterior cerebral arteries. The right vertebral artery is dominant. No aneurysm s are demonstrated. Patient has a well-developed right posterior communicating artery. CONCLUSION: Occluded left internal carotid artery. Based on today's ultrasound, this appears to be at the origin and is probably chronic. Associated slightly decreased filling of the left anterior and middle cerebr al artery distributions relative to the right. No acute abnormality seen of the intracranial arteries . Jose Francisco Rodriguez MD on August 10, 2017 at 18:30 Board Certified Radiologist. This report was verified electronically.
--- NOTE | 2017-08-10 19:00 | RADRPT ---
EXAM DATE/TIME: 08/10/2017 18:07 [facility] COMPARISON: CT BRAIN W/O CONTRAST, August 10, 2017, 11:34. MRA BRAIN W/O CONTRAST, August 10, 2017, 18:07. INDICATIONS : CVA. MEDICAL HISTORY : Diabetes mellitus type 2. Hypertension. Chronic obstructive pulmonary disease. SURGICAL HISTORY : Bilateral feet wound debridement. ENCOUNTER: Subsequent ACUITY: 1 day PAIN SCORE: 0/10 LOCATION: Head. TECHNIQUE: Multiplanar, multisequence MRI of the brain was performed without contrast. FINDINGS: CEREBRUM: The ventricles are normal for age. No evidence of midline shift, mass lesion, hemorrhage or acute in farction. No extraaxial fluid collections are seen. The pituitary gland and suprasellar cistern are normal in configuration. There are old infarcts in the left periventricular white matter and left oc cipital/posterior parietal lobes. WHITE MATTER: No significant signal abnormalities are seen in the white matter. POSTERIOR FOSSA: The cerebellum and brainstem are intact. The 4th ventricle is midline. The cerebellopontine angle is unremarkable. The cerebellar tonsils are normal in position. DIFFUSION IMAGING: Several faint foci of restricted diffusion compatible subacute infarcts are noted, measuring 4 mm of the left cerebral peduncle, 3 mm of the left frontal periventricular white matter and 3 x 8 mm of the left parietal periventricular white matter. EXTRACRANIAL: The visualized portions of the orbits and paranasal sinuses are unremarkable. CONCLUSION: 1. Several small subacute left white matter subacute infarcts as above. No associated mass effect, bl eed or midline shift. 2. Left parietal-occipital infarct appears old by MRI. Jose Francisco Rodriguez MD on August 10, 2017 at 18:53 Board Certified Radiologist. This report was verified electronically.
[2017-08-10] MEDS: SODIUM CHLORIDE 0.9% FLUSH 5 ML FLUSH IV FLUSH SCH (21:00)
[2017-08-10 21:31] LABS: CREATINE KINASE 20 U/L (39-308)
[2017-08-10] MEDS ORDERED: FINASTERIDE 5 MG TAB PO ONE (22:00)
--- NOTE | 2017-08-10 23:19 | MB ---
cc: ASIA ANDERSON MD DATE OF CONSULTATION 08/10/17 REASON FOR CONSULTATION Stroke HISTORY OF PRESENT ILLNESS Mr. Lehman is a 72-year-old male with past medical history significant for hypertension, diabetes, peripheral neuropathy, peripheral vascular disease, chronic left foot ulcer who was referred to the [facility] for evaluation of left heel ulcer of four months duration. The patient has chronic nystagmus since . The patient was found to be in sepsis. vascular surgery. Vascular surgery and Infectious Disease are on board to treat for osteomyelitis. The patient was noted to be slurring speech for the past two days with notable right upper and lower extremity weakness. Thus, a head CT scan was ordered that revealed evolving left parietal occipital stroke. No evidence of hemorrhage. Neurology consult was placed. REVIEW OF SYSTEMS A 12-point review of systems is negative except for what is stated in the HPI. PAST MEDICAL HISTORY 1. Hypertension, 2. Diabetes, 3. Peripheral neuropathy, 4. Peripheral vascular disease, 5. Chronic left foot ulcer. PAST SURGICAL HISTORY 1. Dental extraction 2. Left lower extremity debridement ALLERGIES No known allergies. FAMILY HISTORY Noncontributory SOCIAL HISTORY Negative for alcohol or drugs. He smokes half pack per day. MEDICATIONS 1. Hydralazine. 2. Amlodipine 3. Clonidine 4. Pantoprazole. 5. Heparin 6. Neurontin PHYSICAL EXAMINATION GENERAL: Awake, alert, not in acute distress HEENT: Atraumatic, normocephalic. rotatory nystagmus/chronic. Intact hearing. NECK: Supple. No signs of meningeal irritation. Next CARDIOVASCULAR: Regular rate and rhythm. RESPIRATORY: Clear to auscultation. No wheezes GASTROINTESTINAL: Soft, nontender. MUSCULOSKELETAL: No clubbing, no cyanosis, left lower extremity heel ulcer with surrounding edema and wrapped by bandage NEUROLOGIC: Awake, alert, oriented to time, person and place and dysarthria. No dysphagia. Intact naming. Intact reading. Intact repetition. Bilateral nystagmus chronic. Pupils 2 mm reacting normally to light. Subtle right facial weakness. Right upper extremity grade 5-/5 shoulder abduction, elbow extension and wrist extension, right lower extremity 4+ hip flexion, 5- knee extension and foot dorsiflexion. The rest of the motor examination is 5/5. Sensation is intact bilateral and symmetrical. Cerebellar function is intact. Reflexes 1+ bilateral and symmetrical. Unable to assess the right lower extremity reflexes due to the gauze wrapped around the wound. PSYCHIATRIC: Normal mood and behavior. No hallucinations. LABORATORY DATA White blood cells 20.8, hemoglobin is 8.1, platelets 677. Sodium 155, potassium 4.2, anion gap 24, BUN eight, creatinine 16, random glucose 112, AST 14, ALT 18 , total protein 5.5, INR 1.2. IMAGING STUDIES - Head CT scan without contrast revealed an evolving left parietal occipital stroke. No evidence of hemorrhage. - Head MRA revealed occluded left ICA at the origin probably chronic, associated slightly decreased filling of the left FRANKLIN and MCA distributions to the right. - Carotid ultrasound revealed occlusive noncalcified plaque and thrombus in the left ICA, mild less than 50% stenosis of the right ICA anterior vertebral flow. - Brain MRI revealed several small subacute left white matter subacute infarcts, left parietal occipital infarcts are remote. DIAGNOSTIC IMPRESSION 1. Acute/subacute ischemic infarct in the left hemisphere. 2. Remote left parietal occipital infarct. 3. Left ICA occlusive disease. 4. Septicemia secondary to osteomyelitis 5. History of hypertension. 6. History of diabetes. 7. Anemia 8. Thrombocytosis PLAN 1. Neuro checks q. four hourly 2. Continue aspirin 81 mg 3. Continue Plavix 75 mg 4. Telemetry monitoring. 5. Continue supportive medical therapy 6. No role for surgical intervention with a left ICA occlusion 7. PT OT recommendations are appreciated. 8. DVT prophylaxis SCDs. 9. GI prophylaxis. Thank you for the opportunity to participate in the care of your patient. MD ANDRES Ross/ /9:39 PM /10:50 PM [facility]
[2017-08-11] VITALS (9 sets, daily range): BP systolic 116–149; BP diastolic 63–75; PULSE 92–99; RESP 18–20; TEMP 97.7–99.5; O2SAT 93–98
[2017-08-11] MEDS: ACETAMINOPHEN/HYDROcodone 325 MG/5 MG TAB PO PRN (00:03)
[2017-08-11] MEDS: MORPHINE SULFATE 4 MG/ML INJ IV PUSH PRN ×3 (00:04→21:23)
[2017-08-11 02:59] LABS: AUTOMATED NEUTROPHIL # 13.9 TH/MM3 (1.8-7.7); BASOPHIL # 0.2 TH/MM3 (0-0.2); BASOPHIL % 1.2 % (0.0-2.0); EOSINOPHIL # 0.7 TH/MM3 (0-0.4); EOSINOPHIL % 3.8 % (0.0-4.0); HEMATOCRIT 23.8 % (39.0-51.0); HEMO FLAGS DIFF FINAL; LYMPHOCYTE # 3.3 TH/MM3 (1.0-4.8); MEAN CELL VOLUME 72.3 FL (80.0-100.0); MEAN CORPUSCULAR HGB CONC 31.8 % (32.0-36.0); MONO % 6.2 % (0.0-8.0); NEUT % 71.8 % (16.0-70.0); PLATELET COUNT 667 TH/MM3 (150-450); RED CELL DISTRIBUTION WIDTH 18.7 % (11.6-17.2); WHITE BLOOD COUNT 19.3 TH/MM3 (4.0-11.0)
[2017-08-11 03:51] LABS: BACTERIA, URINE RARE /hpf; BLOOD, URINE NEG (NEG); GLUCOSE,URINE 70 mg/dL (NEG); KETONE, URINE NEG (NEG); NITRITE,URINE NEG (NEG); PH, URINE 6.5 (5.0-8.5); URINE COLOR LIGHT-YELLOW (YELLW/STRAW)
[2017-08-11 03:52] LABS: COMMENT (UR) CATH-CULTURE IND; CULTURE IF INDICATED CATH CULTURE IND
[2017-08-11 04:26] LABS: CREATINE KINASE 15 U/L (39-308)
[2017-08-11] MEDS: hydrALAZINE HCL 25 MG TAB PO SCH ×3 (06:10→21:15)
[2017-08-11] MEDS: INSULIN ASPART SUPPLEMENTAL SCALE SQ SCH ×4 (08:00→21:00)
[2017-08-11 08:32] LABS: ALT (GPT) 19 U/L (12-78); ANION GAP 8 MEQ/L (5-15); AST (GOT) 19 U/L (15-37); BICARBONATE 23.7 MEQ/L (21.0-32.0); BLOOD UREA NITROGEN 16 MG/DL (7-18); CHLORIDE 107 MEQ/L (98-107); GLOMERULAR FILTRATION RATE 114 ML/MIN (>89); SODIUM (NA) 139 MEQ/L (136-145)
[2017-08-11 08:37] LABS: ALKALINE PHOSPHATASE 228 U/L (45-117); HDL CHOLESTEROL 26.8 MG/DL (40.0-60.0); LDL CHOLESTEROL 110 MG/DL (0-99); TOTAL BILIRUBIN ADULT 0.2 MG/DL (0.2-1.0)
[2017-08-11] MEDS: SODIUM CHLORIDE 0.9% FLUSH 5 ML FLUSH IV FLUSH SCH ×2 (09:00→21:00)
[2017-08-11] MEDS ORDERED: ASPIRIN 325 MG TAB PO SCH (09:00)
--- NOTE | 2017-08-11 09:01 | HHI.PR ---
Review/Management Diagnosis Acute ischemic stroke Left Carotid artery occlusion Plan Neuro checks Q4h Aspirin 81mg daily Plavix 75mg daily Statins Telemetry PT/OT, recommendations are appreciated DVT prophylaxis Diagnosis/Plan: Subjective Subjective Comments No acute events reported CUS revealed occlusion of left ICA, 50% right ICA No new complaints Active Medications Current Medications Medications (Trade) Dose Ordered Sig/Sumanth Route Start Time Stop Time Status Last Admin (D50w (Syr) Inj) 50 ml UNSCH PRN IV PUSH 08/03/17 19:30 (Glucagon Inj) 1 mg UNSCH PRN OTHER 08/03/17 19:30 (NovoLOG SUPPLEMENTAL SCALE) 1 ACHS SLIDING SCALE SQ 08/03/17 21:00 08/10/17 13:15 Sodium Chloride 1,000 ml @ 100 mls/hr Q10H IV 08/03/17 19:30 08/10/17 23:25 (Zofran Inj) 4 mg Q6H PRN IVP 08/03/17 19:30 08/03/17 21:08 (Heparin Inj) 5,000 units Q12H SQ 08/04/17 09:00 08/10/17 20:39 (Tylenol) 650 mg Q6H PRN PO 08/03/17 19:30 (Elkins 5-325 Mg) 1 tab Q4H PRN PO 08/03/17 19:30 08/11/17 00:03 (Morphine Inj) 2 mg Q3H PRN IV PUSH 08/03/17 19:30 08/11/17 00:04 (Alanna-Colace) 1 tab BID PO 08/03/17 21:00 08/10/17 20:39 (Milk Of Magnesia Liq) 30 ml Q12H PRN PO 08/03/17 19:30 08/07/17 16:42 (Senokot) 17.2 mg Q12H PRN PO 08/03/17 19:30 (Dulcolax Supp) 10 mg DAILY PRN RECTAL 08/03/17 19:30 (Lactulose Liq) 30 ml DAILY PRN PO 08/03/17 19:30 (Plavix) 75 mg DAILY@1600 PO 08/04/17 16:00 08/10/17 17:01 (Neurontin) 600 mg QID PO 08/03/17 21:00 08/10/17 20:39 (Protonix) 40 mg DAILY@1600 PO 08/04/17 16:00 08/10/17 17:01 (Norvasc) 5 mg BID PO 08/05/17 14:15 08/10/17 20:39 (Catapres) 0.1 mg Q4H PRN PO 08/05/17 14:15 (Apresoline) 25 mg Q8HR PO 08/05/17 22:00 08/11/17 06:10 Ceftriaxone Sodium 2000 mg/ Sodium Chloride 100 ml @ 200 mls/hr Q24H IV 08/07/17 14:00 09/18/17 13:59 08/10/17 13:15 (Levemir Inj) 30 units BID SQ 08/08/17 21:00 08/10/17 21:00 (Aspirin) 325 mg DAILY PO 08/11/17 09:00 (NS Flush) 2 ml BID IV FLUSH 08/10/17 21:00 08/10/17 21:00 (NS Flush) 2 ml UNSCH PRN IV FLUSH 08/10/17 12:45 (Proscar) 5 mg DAILY PO 08/11/17 16:00 Allergies Allergies Coded Allergies *MDRO Multi-Drug Resistant Organism (Verified Adverse Reaction, Unknown, ) Review of Systems All other ROS: ROS reviewed as documented in chart Exam I&O / VS 08/11/17 08/11/17 08/12/17 15:00 23:00 07:00 Output Total 1450 ml Balance -1450 ml Output Urine Total 1450 ml Vital Signs Date Time Temp Pulse Resp B/P (MAP) Pulse Ox O2 Delivery O2 Flow Rate FiO2 08/11/17 08:08 98.1 92 20 133/75 (94) 94 08/11/17 04:19 97.7 92 18 149/67 (94) 94 08/11/17 02:40 98 08/11/17 00:24 98.8 97 18 144/63 (90) 94 08/10/17 20:30 97 08/10/17 20:30 93 21 08/10/17 20:21 97.6 101 18 174/74 (107) 95 08/10/17 16:12 98.8 97 20 121/59 (79) 97 08/10/17 12:09 98.9 104 20 141/63 (89) 96 08/10/17 11:17 97 General: Alert and Oriented, No acute distress Eye: Vision unchanged Respiratory: Non-labored respirations Cardiology: Normal rate, No murmur Neurologic: Other (unchanged) Psychiatric: Cooperative, Appropriate mood & affect Objective Radiology Results Last 72 hours Impressions Head Magnetic Resonance Angiography 08/10/17 0000 Signed Impressions: Service Date/Time: July 18:07 - CONCLUSION: Occluded left internal carotid artery. Based on today's ultrasound, this appears to be at the origin and is probably chronic. Associated slightly decreased filling of the left anterior and middle cerebral artery distributions relative to the right. No acute abnormality seen of the intracranial arteries. Jose Francisco Rodriguez MD Head CT 08/10/17 0000 Signed Impressions: Service Date/Time: July 11:34 - CONCLUSION: Evolving left parieto-occipital stroke. No evidence of hemorrhage. Jose Francisco Colon MD Carotid Artery Ultrasound 08/10/17 0000 Signed Impressions: Service Date/Time: July 12:29 - CONCLUSION: 1. Apparent occlusive non-calcified plaque and thrombus in the left internal carotid origin. 2. Mild, less than 50%%, stenosis of the right internal carotid artery secondary to calcified plaque extending from the carotid bulb. 3. Antegrade vertebral artery flow. Eder Biggs MD Brain MRI 08/10/17 0000 Signed Impressions: Service Date/Time: July 18:07 - CONCLUSION: 1. Several small subacute left white matter subacute infarcts as above. No associated mass effect, bleed or midline shift. 2. Left parietal-occipital infarct appears old by MRI. Jose Francisco Rodriguez MD Micro and Labs Laboratory Tests Test 08/10/17 14:55 08/10/17 20:17 08/11/17 00:45 08/11/17 02:18 Total Creatine Kinase 15 20 15 Troponin I LESS THAN 0.02 LESS THAN 0.02 LESS THAN 0.02 Urine Color LIGHT-YELLOW Urine Turbidity CLEAR Urine pH 6.5 Urine Specific Connelly 1.008 Urine Protein 100 Urine Glucose (UA) 70 Urine Ketones NEG Urine Occult Blood NEG Urine Nitrite NEG Urine Bilirubin NEG Urine Urobilinogen LESS THAN 2.0 Urine Leukocyte Esterase NEG Urine Bacteria RARE Microscopic Urinalysis Comment CATH-CULTURE IND White Blood Count 19.3 Red Blood Count 3.30 Hemoglobin 7.6 Hematocrit 23.8 Mean Corpuscular Volume 72.3 Mean Corpuscular Hemoglobin 23.0 Mean Corpuscular Hemoglobin Concent 31.8 Red Cell Distribution Width 18.7 Platelet Count 667 Mean Platelet Volume 7.1 Neutrophils (%) (Auto) 71.8 Lymphocytes (%) (Auto) 17.0 Monocytes (%) (Auto) 6.2 Eosinophils (%) (Auto) 3.8 Basophils (%) (Auto) 1.2 Neutrophils # (Auto) 13.9 Lymphocytes # (Auto) 3.3 Monocytes # (Auto) 1.2 Eosinophils # (Auto) 0.7 Basophils # (Auto) 0.2 CBC Comment DIFF FINAL Differential Comment Test 08/11/17 07:44 Blood Urea Nitrogen 16 Creatinine 0.72 Random Glucose 118 Total Protein 5.5 Albumin 1.6 Calcium Level 7.8 Phosphorus Level 4.2 Magnesium Level 2.0 Alkaline Phosphatase 228 Aspartate Amino Transf (AST/SGOT) 19 Alanine Aminotransferase (ALT/SGPT) 19 Total Bilirubin 0.2 Sodium Level 139 Potassium Level 4.0 Chloride Level 107 Carbon Dioxide Level 23.7 Anion Gap 8 Estimat Glomerular Filtration Rate 114 Triglycerides Level 182 Cholesterol Level 173 LDL Cholesterol 110 HDL Cholesterol 26.8 Cholesterol/HDL Ratio 6.45 Date/Time Source Procedure Growth Status 08/06/17 11:20 Blood Peripheral Aerobic Blood Culture - Preliminary NO GROWTH IN 4 DAYS Resulted 08/06/17 11:20 Blood Peripheral Anaerobic Blood Culture - Preliminary NO GROWTH IN 4 DAYS Resulted 08/11/17 00:45 Urine Catheterized Urine Urine Culture Pending Received 08/09/17 18:57 Wound Heel Fungal Smear - Final NO FUNGAL ELEMENTS SEEN. Resulted 08/09/17 18:57 Wound Heel Fungal Culture Pending Resulted Jl Christian MD Aug 11, 2017 09:01
[2017-08-11] MEDS: DOCUSATE SODIUM 50 MG/SENNA 8.6 MG TAB PO SCH ×2 (09:24→21:14)
[2017-08-11] MEDS: INSULIN DETEMIR 100 UNITS/ML VIAL SQ SCH ×2 (09:24→21:00)
[2017-08-11] MEDS: HEPARIN SODIUM - SQ 10,000 UNITS/ML VIAL SQ SCH ×2 (09:25→21:15)
[2017-08-11] MEDS: GABAPENTIN 300 MG CAP PO SCH ×4 (09:25→21:14)
[2017-08-11] MEDS: amLODIPine BESYLATE 5 MG TAB PO SCH ×2 (09:25→21:15)
--- NOTE | 2017-08-11 10:52 | HHI.PR ---
Subjective Remarks This is a 52-year-old male with a PMH of HTN, DM, Peripheral Neuropathy, PVD and Chronic Left Foot Ulcer who was referred to the ER by PCP, Dr. Hernandez, for admission and further evaluation of left heel ulcer. Patient with chronic ulcer for the last 4 months, currently under Wound Care, states he recently completed antibiotics for left heel infection, was seen by PCP today and instructed to come to ER. Per pt, progressive pain to left heel especially w/ ambulation, today felt a 'crunch" followed by intense pain. On arrival, BP 126/ 68, HR 110, O2 sat 99% on RA, Afebrile. WBC 25.4. K+ 5.5. Lactic Acid 1.3. INR 1.2. LE Doppler negative for DVT. Foot X-ray w/ erosive changes along posterior calcaneus with possible avulsion injury. MRI Foot with large soft tissue ulcer of the heel with broad area of osteomyelitis of the posterior calcaneus, Achilles tendon ruptured at its insertion. S/p Vanc/Zosyn in ER 08-04 await infectious disease as well as podiatry evaluation No new complaints Is on vancomycin and Zosyn discussed with patient and RN 08-05 RADIOLOGY RESULTS REVIEWED- CONSULT VASCULAR FOR EVAL OF LEFT LE ADJUST BP MEDS 08-06 STREP BOVIS ON MICRO- CONSULT GI DW RN AND PT AND ID- CONSULT GI FOR SURGERY EARLY THIS WEEK REGARDING LEFT LE PER VASCULAR SURGERY AM LABS NEEDS TO KEEP LEFT FOOT FLOATING 08-07 TO GO FOR PROCEDURE ON LEFT LE TODAY WITH VASCULAR SURGERY NO NEW COMPLAINTS MONITOR ANEMIA--IS ON FLUIDS MAY BE DILUTIONAL AM LABS DW RN AND PT 08-08 POSSIBLY FOR SURGERY TODAY- NPO MONITOR HEMOGLOBIN HAS WEAKNESS BL LE, BOTH LEFT AND RIGHT AM LABS 08-09 MODERATE RISK FOR SURGERY TO GO FOR SURGERY TODAY DATE OF SURGERY HAD [id number]/08/2017 PREOPERATIVE DIAGNOSIS Diabetic foot wound left lower extremity. POSTOPERATIVE DIAGNOSIS Diabetic foot wound left lower extremity. PROCEDURE 1. Selective left lower extremity arteriogram. 2. Rechanneling of left superficial femoral artery with balloon angioplasty of the left SFA and above-knee popliteal artery with a 5-mm x 40-mm balloon and then CSI atherectomy SURGEON Dr. Herber Esquivel TO GO FOR SURGERY WITH PODIATRY TODAY DATE OF SURGERY: 08/09/2017 PREOPERATIVE DIAGNOSIS 1. Left heel gangrene, dry and stable. 2. Left heel osteomyelitis. 3. Left heel Achilles rupture. POSTOPERATIVE DIAGNOSIS 1. Left heel gangrene, dry and stable. 2. Left heel osteomyelitis. 3. Left heel Achilles rupture. PROCEDURE 1. Left heel partial calcanectomy. 2. Left ankle I&D. 08-10 HAVING SLURRED SPEECH AND DIFFICULTY SPEAKING AND GETTING WORDS OUT WILL GET CT OF HEAD NOW AND CAROTIDS AND START ON ASPIRIN WELL CONTINUE HIS PLAVIX NOT CURRENTLY COMPLAINING OF MUCH AT THIS TIME 08-11 left ICA OCCLUSION SEEN BY NEUROLOGY - CVA ACUTE VS SUBACUTE CONTINUE ON ASA 81, PLAVIX 75 DW RN AND PT CONTINUE PT OT AND ST Objective Vitals Vital Signs Date Time Temp Pulse Resp B/P (MAP) Pulse Ox O2 Delivery O2 Flow Rate FiO2 08/11/17 10:38 94 08/11/17 08:08 98.1 92 20 133/75 (94) 94 08/11/17 04:19 97.7 92 18 149/67 (94) 94 08/11/17 02:40 98 08/11/17 00:24 98.8 97 18 144/63 (90) 94 08/10/17 20:30 97 08/10/17 20:30 93 21 08/10/17 20:21 97.6 101 18 174/74 (107) 95 08/10/17 16:12 98.8 97 20 121/59 (79) 97 08/10/17 12:09 98.9 104 20 141/63 (89) 96 08/10/17 11:17 97 I/O 08/10/17 08/10/17 08/10/17 08/11/17 08/11/17 08/11/17 07:00 15:00 23:00 07:00 15:00 23:00 Intake Total 240 ml 1450 ml 480 ml Output Total 400 ml 3600 ml 1450 ml Balance -160 ml 1450 ml -3120 ml -1450 ml Intake Oral 240 ml 600 ml 480 ml IV Total 850 ml Output Urine Total 400 ml 3600 ml 1450 ml Bladder Scan Volume Amount 900 ml # Voids 3 1 # Bowel Movements 1 0 Result Diagram: 08/11/17 0218 08/11/17 0744 Other Results Laboratory Tests Test 08/09/17 06:00 08/10/17 08:18 08/10/17 14:55 08/10/17 20:17 White Blood Count 21.7 TH/MM3 20.8 TH/MM3 Red Blood Count 3.41 MIL/MM3 3.47 MIL/MM3 Hemoglobin 7.6 GM/DL 8.1 GM/DL Hematocrit 24.7 % 25.0 % Mean Corpuscular Volume 72.4 FL 72.2 FL Mean Corpuscular Hemoglobin 22.4 PG 23.3 PG Mean Corpuscular Hemoglobin Concent 30.9 % 32.2 % Red Cell Distribution Width 18.9 % 19.0 % Platelet Count 632 TH/MM3 677 TH/MM3 Mean Platelet Volume 7.4 FL 7.1 FL Neutrophils (%) (Auto) 70.8 % 78.1 % Lymphocytes (%) (Auto) 17.4 % 12.4 % Monocytes (%) (Auto) 7.4 % 5.6 % Eosinophils (%) (Auto) 3.3 % 2.9 % Basophils (%) (Auto) 1.1 % 1.0 % Neutrophils # (Auto) 15.4 TH/MM3 16.3 TH/MM3 Lymphocytes # (Auto) 3.8 TH/MM3 2.6 TH/MM3 Monocytes # (Auto) 1.6 TH/MM3 1.2 TH/MM3 Eosinophils # (Auto) 0.7 TH/MM3 0.6 TH/MM3 Basophils # (Auto) 0.2 TH/MM3 0.2 TH/MM3 CBC Comment DIFF FINAL DIFF FINAL Differential Comment Blood Urea Nitrogen 18 MG/DL 16 MG/DL Creatinine 0.73 MG/DL 0.81 MG/DL Random Glucose 106 MG/DL 112 MG/DL Total Protein 5.5 GM/DL 5.5 GM/DL Albumin 1.5 GM/DL 1.6 GM/DL Calcium Level 7.9 MG/DL 8.0 MG/DL Phosphorus Level 3.8 MG/DL 3.9 MG/DL Magnesium Level 2.1 MG/DL 2.0 MG/DL Alkaline Phosphatase 211 U/L 208 U/L Aspartate Amino Transf (AST/SGOT) 15 U/L 14 U/L Alanine Aminotransferase (ALT/SGPT) 18 U/L 18 U/L Total Bilirubin 0.2 MG/DL 0.2 MG/DL Sodium Level 137 MEQ/L 135 MEQ/L Potassium Level 4.1 MEQ/L 4.2 MEQ/L Chloride Level 106 MEQ/L 103 MEQ/L Carbon Dioxide Level 23.1 MEQ/L 24.1 MEQ/L Anion Gap 8 MEQ/L 8 MEQ/L Estimat Glomerular Filtration Rate 112 ML/MIN 100 ML/MIN Total Creatine Kinase 15 U/L 20 U/L Troponin I LESS THAN 0.02 NG/ML LESS THAN 0.02 NG/ML Test 08/11/17 00:45 08/11/17 02:18 08/11/17 07:44 Urine Color LIGHT-YELLOW Urine Turbidity CLEAR Urine pH 6.5 Urine Specific [place] 1.008 Urine Protein 100 mg/dL Urine Glucose (UA) 70 mg/dL Urine Ketones NEG mg/dL Urine Occult Blood NEG Urine Nitrite NEG Urine Bilirubin NEG Urine Urobilinogen LESS THAN 2.0 MG/DL Urine Leukocyte Esterase NEG Urine Bacteria RARE /hpf Microscopic Urinalysis Comment CATH-CULTURE IND White Blood Count 19.3 TH/MM3 Red Blood Count 3.30 MIL/MM3 Hemoglobin 7.6 GM/DL Hematocrit 23.8 % Mean Corpuscular Volume 72.3 FL Mean Corpuscular Hemoglobin 23.0 PG Mean Corpuscular Hemoglobin Concent 31.8 % Red Cell Distribution Width 18.7 % Platelet Count 667 TH/MM3 Mean Platelet Volume 7.1 FL Neutrophils (%) (Auto) 71.8 % Lymphocytes (%) (Auto) 17.0 % Monocytes (%) (Auto) 6.2 % Eosinophils (%) (Auto) 3.8 % Basophils (%) (Auto) 1.2 % Neutrophils # (Auto) 13.9 TH/MM3 Lymphocytes # (Auto) 3.3 TH/MM3 Monocytes # (Auto) 1.2 TH/MM3 Eosinophils # (Auto) 0.7 TH/MM3 Basophils # (Auto) 0.2 TH/MM3 CBC Comment DIFF FINAL Differential Comment Total Creatine Kinase 15 U/L Troponin I LESS THAN 0.02 NG/ML Blood Urea Nitrogen 16 MG/DL Creatinine 0.72 MG/DL Random Glucose 118 MG/DL Total Protein 5.5 GM/DL Albumin 1.6 GM/DL Calcium Level 7.8 MG/DL Phosphorus Level 4.2 MG/DL Magnesium Level 2.0 MG/DL Alkaline Phosphatase 228 U/L Aspartate Amino Transf (AST/SGOT) 19 U/L Alanine Aminotransferase (ALT/SGPT) 19 U/L Total Bilirubin 0.2 MG/DL Sodium Level 139 MEQ/L Potassium Level 4.0 MEQ/L Chloride Level 107 MEQ/L Carbon Dioxide Level 23.7 MEQ/L Anion Gap 8 MEQ/L Estimat Glomerular Filtration Rate 114 ML/MIN Triglycerides Level 182 MG/DL Cholesterol Level 173 MG/DL LDL Cholesterol 110 MG/DL HDL Cholesterol 26.8 MG/DL Cholesterol/HDL Ratio 6.45 RATIO Imaging Last Impressions Head Magnetic Resonance Angiography 08/10/17 Signed Impressions: Service Date/Time: July 18:07 - CONCLUSION: Occluded left internal carotid artery. Based on today's ultrasound, this appears to be at the origin and is probably chronic. Associated slightly decreased filling of the left anterior and middle cerebral artery distributions relative to the right. No acute abnormality seen of the intracranial arteries. Jose Francisco Rodriguez MD Head CT 08/10/17 Signed Impressions: Service Date/Time: July 11:34 - CONCLUSION: Evolving left parieto-occipital stroke. No evidence of hemorrhage. Jose Francisco Colon MD Carotid Artery Ultrasound 08/10/17 Signed Impressions: Service Date/Time: July 12:29 - CONCLUSION: 1. Apparent occlusive non-calcified plaque and thrombus in the left internal carotid origin. 2. Mild, less than 50%%, stenosis of the right internal carotid artery secondary to calcified plaque extending from the carotid bulb. 3. Antegrade vertebral artery flow. Eder Biggs MD Brain MRI 08/10/17 Signed Impressions: Service Date/Time: July 18:07 - CONCLUSION: 1. Several small subacute left white matter subacute infarcts as above. No associated mass effect, bleed or midline shift. 2. Left parietal-occipital infarct appears old by MRI. Jose Francisco Rodriguez MD Foot X-Ray 08/09/17 Signed Impressions: Service Date/Time: Wednesday, August 09, 2017 18:57 - CONCLUSION: Large portion of the posterior calcaneus has been surgically resected. Remaining bone has a grossly normal radiographic appearance. Jose Francisco Rodriguez MD Lower Extremity Ultrasound 08/05/17 Signed Impressions: Service Date/Time: Saturday, August 05, 2017 18:13 - CONCLUSION: Negative exam with no evidence of deep venous thrombosis. Stone Sexton MD Aorta w/Runoff CTA 08/04/17 Signed Impressions: Service Date/Time: Friday, August 04, 2017 19:29 - CONCLUSION: 1. Severe atherosclerotic disease. There is a focal short segment high-grade stenosis of the distal left superficial femoral artery. This stenosic segment measures approximately 1 cm in length and represents a change from the prior study. Remaining left lower extremity arterial vessels demonstrate no significant change from the prior exam. 2. Moderate narrowing of the proximal superior mesenteric artery secondary to noncalcified plaque. This finding is stable. 3. Small bilateral pleural effusions with associated compressive atelectasis. Jose Francisco Rogers MD Foot MRI 08/03/17 0000 Signed Impressions: Service Date/Time: July 19:20 - CONCLUSION: Large soft tissue ulcer of the heel and with a broad area of osteomyelitis of the posterior calcaneus. The Achilles tendon is ruptured at its insertion. No drainable abscess. Jose Francisco Rodriguez MD Objective Remarks GENERAL: Awake alert oriented talkative and cooperative SKIN: Warm and dry. Left heel with large open wound HEAD: Atraumatic. Normocephalic. EYES: Pupils equal and round. No scleral icterus. No injection or drainage. EOMI ENT: No nasal bleeding or discharge. Mucous membranes pink and moist. Tongue is midline NECK: Trachea midline. No JVD. Supple CARDIOVASCULAR: Regular rate and rhythm. S1-S2 no S3 or S4 RESPIRATORY: No accessory muscle use. Clear to auscultation. Breath sounds equal bilaterally. GASTROINTESTINAL: Abdomen soft, non-tender, nondistended. Hepatic and splenic margins not palpable. MUSCULOSKELETAL: Extremities without clubbing, cyanosis, or edema. No obvious deformities. Left heel large ulcer WITH BLACK AREA NEUROLOGICAL: Awake and alert. No obvious cranial nerve deficits. Motor grossly within normal limits. 4 out of 5 muscle strength in the arms and legs. Normal speech. PSYCHIATRIC: Appropriate mood and affect; insight and judgment ABnormal. Procedures DATE OF SURGERY 08/08/2017 PREOPERATIVE DIAGNOSIS Diabetic foot wound left lower extremity. POSTOPERATIVE DIAGNOSIS Diabetic foot wound left lower extremity. PROCEDURE 1. Selective left lower extremity arteriogram. 2. Rechanneling of left superficial femoral artery with balloon angioplasty of the left SFA and above-knee popliteal artery with a 5-mm x 40-mm balloon and then I atherectomy SURGEON Dr. Herber Esquivel GRIFFIN HADDAD DPM DATE OF SURGERY: 08/09/2017 PREOPERATIVE DIAGNOSIS 1. Left heel gangrene, dry and stable. 2. Left heel osteomyelitis. 3. Left heel Achilles rupture. POSTOPERATIVE DIAGNOSIS 1. Left heel gangrene, dry and stable. 2. Left heel osteomyelitis. 3. Left heel Achilles rupture. PROCEDURE 1. Left heel partial calcanectomy. 2. Left ankle I&D. Medications and IVs Current Medications Sodium Chloride 1,000 ml @ 1,000 mls/hr Q1H IV Last administered on 08/03/17 18:02; Start 08/03/17 at 17:03; Stop 08/03/17 at 18:02; Status DC Vancomycin HCl 1000 mg/Sodium Chloride 250 ml @ 250 mls/hr ONCE ONCE IV Last administered on 08/03/17 19:24; Start 08/03/17 at 17:15; Stop 08/03/17 at 18:14 ; Status DC Piperacillin Sod/ Tazobactam Sod 50 ml @ 100 mls/hr ONCE ONCE IV Last administered on 08/03/17 18:02; Start 08/03/17 at 17:15; Stop 08/03/17 at 17:44 ; Status DC Insulin Human Regular (NovoLIN R INJ) 5 units ONCE ONCE IV PUSH ; Start at 19:00; Stop 08/03/17 at 19:01; Status DC Sodium Polystyrene Sulfonate (Kayexalate Liq) 15 gm ONCE ONCE PO Last administered on 08/03/17 20:19; Start 08/03/17 at 19:00; Stop 08/03/17 at 19:01 ; Status DC Sodium Chloride 1,000 ml @ 1,000 mls/hr Q1H IV Last administered on 08/03/17 20:19; Start 08/03/17 at 19:01; Stop 08/03/17 at 20:00; Status DC Dextrose (D50w (Syr) Inj) 50 ml UNSCH PRN IV PUSH HYPOGLYCEMIA-SEE COMMENTS; Start 08/03/17 at 19:30 Glucagon (Glucagon Inj) 1 mg UNSCH PRN OTHER HYPOGLYCEMIA-SEE COMMENTS; Start 08/03/17 at 19:30 Insulin Aspart (NovoLOG SUPPLEMENTAL SCALE) 1 ACHS SLIDING SCALE SQ Last administered on 08/10/17 13:15; Start 08/03/17 at 21:00 Pharmacy Profile Note 0 ml @ 0 mls/hr UNSCH OTHER ; Start 08/03/17 at 19:30; Stop 08/05/17 at 22:48; Status DC Cefepime HCl 1000 mg/Sodium Chloride 100 ml @ 200 mls/hr DAILY IV Last administered on 08/05/17 08:13; Start 08/04/17 at 09:00; Stop 08/05/17 at 22:48 ; Status DC Sodium Chloride 1,000 ml @ 100 mls/hr Q10H IV Last administered on 08/10/17 23:25; Start 08/03/17 at 19:30 Sodium Chloride (NS Flush) 2 ml UNSCH PRN IV FLUSH FLUSH AFTER USING IV ACCESS Last administered on 08/04/17 02:54; Start 08/03/17 at 19:30; Stop 08/10/17 at 13:42; Status DC Sodium Chloride (NS Flush) 2 ml BID IV FLUSH Last administered on 08/09/17 22: 07; Start 08/03/17 at 21:00; Stop 08/10/17 at 13:42; Status DC Ondansetron HCl (Zofran Inj) 4 mg Q6H PRN IVP NAUSEA OR VOMITING Last administered on 08/03/17 21:08; Start 08/03/17 at 19:30 Heparin Sodium (Porcine) (Heparin Inj) 5,000 units Q12H SQ Last administered on 08/11/17 09:25; Start 08/04/17 at 09:00 Acetaminophen (Tylenol) 650 mg Q6H PRN PO FEVER/PAIN SCALE 1 TO 2; Start at 19:30 Acetaminophen/ Hydrocodone Bitart ([place] 5-325 Mg) 1 tab Q4H PRN PO PAIN SCALE 3 TO 5 Last administered on 08/11/17 00:03; Start 08/03/17 at 19:30 Morphine Sulfate (Morphine Inj) 2 mg Q3H PRN IV PUSH Pain 6-10 Last administered on 08/11/17 00:04; Start 08/03/17 at 19:30 Senna/Docusate Sodium (Alanna-Colace) 1 tab BID PO Last administered on 09:24; Start 08/03/17 at 21:00 Magnesium Hydroxide (Milk Of Magnesia Liq) 30 ml Q12H PRN PO MILD - MODERATE CONSTIPATION Last administered on 08/07/17 16:42; Start 08/03/17 at 19:30 Sennosides (Senokot) 17.2 mg Q12H PRN PO MODERATE - SEVERE CONSTIPATION; Start 08/03/17 at 19:30 Bisacodyl (Dulcolax Supp) 10 mg DAILY PRN RECTAL SEVERE CONSITIPATION; Start at 19:30 Lactulose (Lactulose Liq) 30 ml DAILY PRN PO SEVERE CONSITIPATION; Start at 19:30 Clopidogrel Bisulfate (Plavix) 75 mg DAILY@1600 PO Last administered on 17:01; Start 08/04/17 at 16:00 Gabapentin (Neurontin) 600 mg QID PO Last administered on 08/11/17 09:25; Start 08/03/17 at 21:00 Insulin Detemir (Levemir Inj) 60 units BID SQ Last administered on 08/07/17 22 :24; Start 08/03/17 at 21:00; Stop 08/08/17 at 12:07; Status DC Pantoprazole Sodium (Protonix) 40 mg DAILY@1600 PO Last administered on 17:01; Start 08/04/17 at 16:00 Gadodiamide (Omniscan Pf Inj) 18 ml STK-MED ONCE IVCONTRAST Last administered on 08/03/17 19:50; Start 08/03/17 at 19:50; Stop 08/03/17 at 19:51; Status DC Vancomycin HCl 2300 mg/Sodium Chloride 523 ml @ 250 mls/hr NOW ONCE IV Last administered on 08/04/17 00:49; Start 08/03/17 at 21:00; Stop 08/03/17 at 23:05 ; Status DC Vancomycin HCl 1500 mg/Sodium Chloride 515 ml @ 250 mls/hr Q12H IV Last administered on 08/05/17 09:10; Start 08/04/17 at 09:00; Stop 08/05/17 at 09:40 ; Status DC Miscellaneous Information SPECIFIC LAB TO BE DILIP... ONCE ONCE .XX Last administered on 08/05/17 08:45; Start 08/05/17 at 08:45; Stop 08/05/17 at 08:46 ; Status DC Iohexol (Omnipaque 350 Inj) 100 ml STK-MED ONCE IVCONTRAST Last administered on 08/04/17 19:38; Start 08/04/17 at 19:38; Stop 08/04/17 at 19:40; Status DC Vancomycin HCl 1750 mg/Sodium Chloride 517.5 ml @ 257.5 mls/ hr Q12H IV Last administered on 08/05/17 22:15; Start 08/05/17 at 21:00; Stop 08/05/17 at 22:48 ; Status DC Miscellaneous Information SPECIFIC LAB TO BE DILIP... ONCE ONCE .XX ; Start 08/07 at 08:45; Stop 08/07/17 at 08:45; Status DC Amlodipine Besylate (Norvasc) 5 mg BID PO Last administered on 08/11/17 09:25 ; Start 08/05/17 at 14:15 Clonidine (Catapres) 0.1 mg Q4H PRN PO SBP>160, DBP>90; Start 08/05/17 at 14:15 Hydralazine HCl (Apresoline) 25 mg Q8HR PO Last administered on 08/11/17 06:10 ; Start 08/05/17 at 22:00 Nifedipine (Procardia Xl) 30 mg NOW ONCE PO Last administered on 08/05/17 20: 53; Start 08/05/17 at 20:00; Stop 08/05/17 at 20:01; Status DC Piperacillin Sod/ Tazobactam Sod 50 ml @ 100 mls/hr Q6H IV Last administered on 08/07/17 10:21; Start 08/05/17 at 23:00; Stop 08/07/17 at 12:51; Status DC Ceftriaxone Sodium 2000 mg/ Sodium Chloride 100 ml @ 200 mls/hr Q24H IV Last administered on 08/10/17 13:15; Start 08/07/17 at 14:00; Stop 09/18/17 at 13:59 Insulin Detemir (Levemir Inj) 30 units BID SQ Last administered on 08/11/17 09 :24; Start 08/08/17 at 21:00 Heparin Sodium/ Sodium Chloride 1,000 ml @ As Directed STK-MED ONCE .ROUTE Last administered on 08/08/17 14:18; Start 08/08/17 at 14:18; Stop 08/08/17 at 14:19; Status DC Midazolam HCl (Versed Inj) 2 mg STK-MED ONCE .ROUTE Last administered on 14:49; Start 08/08/17 at 14:18; Stop 08/08/17 at 14:19; Status DC Fentanyl Citrate (fentaNYL INJ) 100 mcg STK-MED ONCE .ROUTE Last administered on 08/08/17 14:37; Start 08/08/17 at 14:18; Stop 08/08/17 at 14:19; Status DC Heparin Sodium (Porcine) (Heparin Inj) 10,000 units STK-MED ONCE .ROUTE Last administered on 08/08/17 14:48; Start 08/08/17 at 14:18; Stop 08/08/17 at 14:19 ; Status DC Nitroglycerin 5 ml @ As Directed STK-MED ONCE .ROUTE Last administered on 15:02; Start 08/08/17 at 14:18; Stop 08/08/17 at 14:19; Status DC Midazolam HCl (Versed Inj) 2 mg STK-MED ONCE .ROUTE Last administered on 14:36; Start 08/08/17 at 14:48; Stop 08/08/17 at 14:49; Status DC Clopidogrel Bisulfate (Plavix) 300 mg STK-MED ONCE .ROUTE Last administered on 08/08/17 15:23; Start 08/08/17 at 15:20; Stop 08/08/17 at 15:21; Status DC Lactated Ringer's 1,000 ml @ 30 mls/hr Q24H PRN IV SEE LABEL COMMENTS; Start at 08:45; Stop 08/09/17 at 18:53; Status DC Sodium Chloride 500 ml @ 30 mls/hr [id number] PRN IV SEE LABEL COMMENTS; Start at 08:45; Stop 08/09/17 at 18:53; Status DC Metoprolol Tartrate (Lopressor) 25 mg BACKGROUND INVESTIGATOR PRN PO SEE LABEL COMMENTS; Start 08/09/17 at 08:45; Stop 08/09/17 at 18:53; Status DC Povidone Iodine (Betadine 5% Antisepsis Kit) 1 applic BACKGROUND INVESTIGATOR PRN EACH NARE SEE LABEL COMMENTS; Start 08/09/17 at 08:45; Stop 08/09/17 at 18:53; Status DC Chlorhexidine Gluconate (Chlorhexidine 2% Cloth) 3 pack BACKGROUND INVESTIGATOR PRN TOPICAL SEE LABEL COMMENTS; Start 08/09/17 at 08:45; Stop 08/09/17 at 18:53; Status DC Insulin Human Regular (NovoLIN R INJ) See Protocol Table ... BACKGROUND INVESTIGATOR PRN SQ SEE PROTOCOL TABLE; Start 08/09/17 at 08:45; Stop 08/09/17 at 18:53; Status DC Iohexol (OMNIPAQUE 350 INJ (Product Technology Scientist)) 100 ml STK-MED ONCE OTHER ; Start at 14:10; Stop 08/09/17 at 12:13; Status DC Lidocaine HCl (Xylocaine 2% Inj) 50 ml STK-MED ONCE .ROUTE Last administered on 08/09/17 17:00; Start 08/09/17 at 16:33; Stop 08/09/17 at 16:34; Status DC Famotidine (Pepcid Inj) 20 mg STK-MED ONCE .ROUTE ; Start 08/09/17 at 17:13; Stop 08/09/17 at 17:14; Status DC Gentamicin Sulfate (Gentamicin Inj) 240 mg ONCE ONCE IRRIGATION Last administered on 08/09/17 17:47; Start 08/09/17 at 17:44; Stop 08/09/17 at 17:47 ; Status DC Bupivacaine HCl (Marcaine Pf 0.5% Inj) 30 ml ONCE ONCE INFIL ; Start 08/09/17 at 17:47; Stop 08/09/17 at 18:42; Status DC Miscellaneous Information ALL NURSING DEPARTME... UNSCH PRN .XX SEE LABEL COMMENTS; Start 08/09/17 at 19:00; Stop 08/10/17 at 18:59; Status DC Aspirin (Aspirin) 325 mg ONCE ONCE PO Last administered on 08/10/17 11:04; Start 08/10/17 at 11:00; Stop 08/10/17 at 11:01; Status DC Aspirin (Aspirin) 325 mg DAILY PO Last administered on 08/11/17 09:24; Start 08/11/17 at 09:00 IV Flush (NS Flush) 2 ml BID IV FLUSH Last administered on 08/10/17 21:00; Start 08/10/17 at 21:00 IV Flush (NS Flush) 2 ml UNSCH PRN IV FLUSH FLUSH AFTER USING IV ACCESS; Start 08/10/17 at 12:45 Finasteride (Proscar) 5 mg DAILY PO ; Start 08/11/17 at 16:00 Finasteride (Proscar) 5 mg ONCE ONCE PO Last administered on 08/10/17 23:24; Start 08/10/17 at 22:00; Stop 08/10/17 at 22:11; Status DC Urinary Catheter: Yes Assessment to: Continue Beckman insert reason: Obstruction/Retention Vascular Central Line Catheter: No A/P Problem List: (1) Sepsis ICD Code: A41.9 - Sepsis, unspecified organism Status: Acute (2) Osteomyelitis ICD Code: M86.9 - Osteomyelitis, unspecified (3) Hyperkalemia ICD Code: E87.5 - Hyperkalemia (4) HTN (hypertension) ICD Code: I10 - Essential (primary) hypertension (5) DM (diabetes mellitus) ICD Code: E11.9 - Type 2 diabetes mellitus without complications (6) CVA (cerebral vascular accident) ICD Code: I63.9 - Cerebral infarction, unspecified Status: Acute Assessment and Plan 1. Sepsis: HR 110, WBC 25.4, Source-Left Heel Ulcer. S/p Blood Cultures, Vanco/Zosyn in ER. Follow up cultures, continue IV Abx. 2. Osteomyelitis: Left Foot. X-ray w/ erosive changes along posterior calcaneus with possible avulsion injury, MRI Foot with large soft tissue ulcer heal and broad area of osteomyelitis of posterior calcaneus with rupture of Achilles tendon, images reviewed . S/p IV Abx as above, will continue. Consult Podiatry and ID. 3. Hyperkalemia: Mild. K+ 5.5. S/p Insulin/D50 in ER, will repeat in am. 4. HTN: BP 150-160's, likely compounded by pain, optimize pain control, monitor BP. ADD CATAPRES AND HYDRALAZINE FOR BP 5. DM: Sliding scale w/ Accu-Cheks. Resume home Insulin Glycemia monitor blood sugars ANEMIA- AM LABS AND MONITOR VASCULAR ISSUES CONSULT VASCULAR SURGERY REGARDING LEFT LOWER EXTREMITY FROM RADIOLOGICAL STUDIES- TO HAVE VASCULAR PROCEDURE LATER THIS WEEK 6. DVT Prophylaxis: Heparin sq 7. Social work for d/c planning as needed A.m. labs continue on current antibiotic treatment VASCULAR SURGERY CONSULT REGARDING LEFT LE- TO HAVE VASCULAR PROCEDURE TODAY 08/08/2017 PREOPERATIVE DIAGNOSIS Diabetic foot wound left lower extremity. POSTOPERATIVE DIAGNOSIS Diabetic foot wound left lower extremity. PROCEDURE 1. Selective left lower extremity arteriogram. 2. Rechanneling of left superficial femoral artery with balloon angioplasty of the left SFA and above-knee popliteal artery with a 5-mm x 40-mm balloon and then CSI atherectomy SURGEON Dr. Herber REESE RN AND PATIENT STREP BOVIS CONSULT GI-- WILL NEED EGD AND COLONOSCOPY BEFORE DC AM LABS TRANSFUSE IF HGB <7 FOR PODIATRY SURGERY 08-09 TODAY MODERATE RISK FOR SURGERY HAD PODIATRY SURGERY 08-09 DATE OF SURGERY: 08/09/2017 PREOPERATIVE DIAGNOSIS 1. Left heel gangrene, dry and stable. 2. Left heel osteomyelitis. 3. Left heel Achilles rupture. POSTOPERATIVE DIAGNOSIS 1. Left heel gangrene, dry and stable. 2. Left heel osteomyelitis. 3. Left heel Achilles rupture. PROCEDURE 1. Left heel partial calcanectomy. 2. Left ankle I&D. CVA ON MRI HAVING STROKE LIKE SYMPTOMS WORD FINDING CONFUSION WILL GET STAT CT HEAD DW RN DECREASE ASA TO 81 MG PO DAILY US OF CAROTIDS MRI OF HEAD NECK Problem Qualifiers (1) Sepsis: Qualified Codes: A41.9 - Sepsis, unspecified organism Piyush Zluuaga DO Aug 11, 2017 10:52
[2017-08-11 12:37] LABS: HEMOGLOBIN A1a 1.1 %; HEMOGLOBIN A1b 0.9 %; HEMOGLOBIN Ao 79.3 %; HEMOGLOBIN F 1.7 %; HEMOGLOBIN P3 4.3 %
[2017-08-11] MEDS: cefTRIAXone INJ 2,000 MG in SODIUM CHLORIDE 0.9% INJ 100 ML IV SCH (13:11)
--- NOTE | 2017-08-11 15:03 | PD.CONS ---
[facility] Service Rehabilitation Medicine Consult Requested By Dr. Zuluaga Reason for Consult Comprehensive rehabilitation evaluation. Primary Care Physician Rey Hernandez MD History of Present Illness Adilson Lehman is a 52 year old right hand dominant male admitted [facility] 08/03/17 with left heel wound and buttock wound. On 08/08/17 he underwent angioplasty of the left SFA and above-knee atherectomy. On 08/09/17 he underwent left heel partial calcanectomy and ankle I and D. He was seen by neurology 08/10/17 for right upper lower extremity weakness and slurred speech with head CT that had showed left parietal occipital stroke. He was placed on aspirin and Plavix. He is now max assist for transfers and nonweightbearing through the left lower extremity Review of Systems Constitutional: DENIES: Fatigue Eyes: DENIES: Diplopia Ears, nose, mouth, throat: DENIES: Throat pain Cardiovascular: DENIES: Chest pain Gastrointestinal: DENIES: Abdominal pain Genitourinary: DENIES: Urinary incontinence Musculoskeletal: COMPLAINS OF: Joint pain, Back pain Integumentary: DENIES: Rash Hematologic/lymphatic: DENIES: Bruising Immunologic/allergic: DENIES: Urticaria Neurologic: COMPLAINS OF: Headache, Paresthesias, DENIES: Localized weakness ( mild), Speech Problems Psychiatric: DENIES: Confusion Past Family Social History Allergies: Coded Allergies: *MDRO Multi-Drug Resistant Organism (Verified Adverse Reaction, Unknown, ) MRSA (arm wound) - 01/2016 MRSA (blood, urine, wound) - 06/2013 Past Medical History Hypertension, Diabetes, Peripheral neuropathy, Peripheral vascular disease, Chronic left foot ulcer. Current Medications Current Medications Medications (Trade) Dose Ordered Sig/Sumanth Route Start Time Stop Time Status Last Admin (D50w (Syr) Inj) 50 ml UNSCH PRN IV PUSH 08/03/17 19:30 (Glucagon Inj) 1 mg UNSCH PRN OTHER 08/03/17 19:30 (NovoLOG SUPPLEMENTAL SCALE) 1 ACHS SLIDING SCALE SQ 08/03/17 21:00 08/11/17 13:09 Sodium Chloride 1,000 ml @ 100 mls/hr Q10H IV 08/03/17 19:30 08/10/17 23:25 (Zofran Inj) 4 mg Q6H PRN IVP 08/03/17 19:30 08/03/17 21:08 (Heparin Inj) 5,000 units Q12H SQ 08/04/17 09:00 08/11/17 09:25 (Tylenol) 650 mg Q6H PRN PO 08/03/17 19:30 ([place] 5-325 Mg) 1 tab Q4H PRN PO 08/03/17 19:30 08/11/17 00:03 (Morphine Inj) 2 mg Q3H PRN IV PUSH 08/03/17 19:30 08/11/17 14:01 (Alanna-Colace) 1 tab BID PO 08/03/17 21:00 08/11/17 09:24 (Milk Of Magnesia Liq) 30 ml Q12H PRN PO 08/03/17 19:30 08/07/17 16:42 (Senokot) 17.2 mg Q12H PRN PO 08/03/17 19:30 (Dulcolax Supp) 10 mg DAILY PRN RECTAL 08/03/17 19:30 (Lactulose Liq) 30 ml DAILY PRN PO 08/03/17 19:30 (Plavix) 75 mg DAILY@1600 PO 08/04/17 16:00 08/10/17 17:01 (Neurontin) 600 mg QID PO 08/03/17 21:00 08/11/17 13:13 (Protonix) 40 mg DAILY@1600 PO 08/04/17 16:00 08/10/17 17:01 (Norvasc) 5 mg BID PO 08/05/17 14:15 08/11/17 09:25 (Catapres) 0.1 mg Q4H PRN PO 08/05/17 14:15 (Apresoline) 25 mg Q8HR PO 08/05/17 22:00 08/11/17 06:10 Ceftriaxone Sodium 2000 mg/ Sodium Chloride 100 ml @ 200 mls/hr Q24H IV 08/07/17 14:00 09/18/17 13:59 08/11/17 13:11 (Levemir Inj) 30 units BID SQ 08/08/17 21:00 08/11/17 09:24 (NS Flush) 2 ml BID IV FLUSH 08/10/17 21:00 08/10/17 21:00 (NS Flush) 2 ml UNSCH PRN IV FLUSH 08/10/17 12:45 (Proscar) 5 mg DAILY PO 08/11/17 16:00 (Aspirin Chew) 81 mg DAILY PO 08/12/17 09:00 Family History Unknown: Patient is adopted Social History Prior to admission patient lived the [place], [place]. His house has one step to enter. Exam I&O / VS 08/11/17 08/11/17 08/12/17 15:00 23:00 07:00 Intake Total 720 ml Output Total 1800 ml Balance -1080 ml Intake Oral 720 ml Output Urine Total 1800 ml Vital Signs Date Time Temp Pulse Resp B/P (MAP) Pulse Ox O2 Delivery O2 Flow Rate FiO2 08/11/17 12:28 98.0 97 20 116/71 (86) 93 08/11/17 10:38 94 08/11/17 08:08 98.1 92 20 133/75 (94) 94 08/11/17 04:19 97.7 92 18 149/67 (94) 94 08/11/17 02:40 98 08/11/17 00:24 98.8 97 18 144/63 (90) 94 08/10/17 20:30 97 08/10/17 20:30 93 21 08/10/17 20:21 97.6 101 18 174/74 (107) 95 08/10/17 16:12 98.8 97 20 121/59 (79) 97 General: No acute distress Respiratory: Lungs CTA, Non-labored respirations, BS equal, Coarse breath sounds Gastrointestinal: Positive Bowel Sounds, Non-Distended, Non-Tender Cardiovascular: Normal rate, Regular Rhythm Skin: Other (scattered rash forearms) Musculoskeletal: Deformity (none) Psychiatric: Cooperative, Appropriate mood & affect Orientation: oriented to Self, oriented to Place, oriented to Time (with cues) , oriented to Situation Neurologic: Pupils (E RLA), EOM (intact with nystagmus), Facial Symmetry ( symmetric), Speech (clear with no word finding difficulties) Motor: Right Upper Extremity (4+/5), Left Upper Extremity (4+/5), Right Lower Extremity (4+/5), Left Lower Extremity (bandage in place and proximal strength is grossly intact) Sensory Impaired distal to the wrists bilaterally and to the mid calf level bilaterally DTRs: Normal (1+) Assessment and Plan Diagnosis: (1) CVA (cerebral vascular accident) ICD Codes: I63.9 - Cerebral infarction, unspecified Status: Acute (2) Diabetic ulcer of heel ICD Codes: E11.621 - Type 2 diabetes mellitus with foot ulcer; L97.409 - Non- pressure chronic ulcer of unspecified heel and midfoot with unspecified severity Status: Acute Qualifiers: Diabetes mellitus type: other specified (including CAMILO) Laterality: left Non-pressure ulcer stage: unspecified non-pressure ulcer stage Qualified Codes: E13.621 - Other specified diabetes mellitus with foot ulcer; L97.429 - Non-pressure chronic ulcer of left heel and midfoot with unspecified severity Assessment 1. Left parietal/occipital stroke 2. Left heel ulceration status post left heel partial calcanectomy and ankle I and D: Now nonweightbearing 3. Impaired mobility and ADLs due to above 4. Hypertension 5. Diabetes mellitus 6. Peripheral neuropathy 7. Peripheral vascular disease Plan 1. Physical therapy is beginning to mobilize the patient is max assist for transfers. Continue nonweightbearing left lower extremity 2. Occupational therapy is addressing ADLs and now max assist for lower body dressing and toileting. Continue to maximize independence 3. Case management is addressing discharge planning for ongoing inpatient rehabilitation. 4. Will follow while hospitalized and at discharge Thank you for this consult Izabella Riddle MD Aug 11, 2017 15:03
[2017-08-11] MEDS: PANTOPRAZOLE SOD 40 MG DELAYED RELEASE TAB PO SCH (17:00)
[2017-08-11] MEDS: CLOPIDOGREL 75 MG TAB PO SCH (17:00)
--- NOTE | 2017-08-11 17:01 | PD.POD ---
Subjective Podiatric Problems Left foot gangrene and OM. PVD Seen at bedside this pm. s/p Left partial calcaneal osteotomy. DOS 08/09/17 Pain scale used: 0-10 numeric scale Pain score: 0 Past Med/Surg/Social History Social History Smoking Status: Current Every Day Smoker Objective Vital Signs Vital Signs Date Time Temp Pulse Resp B/P (MAP) Pulse Ox O2 Delivery O2 Flow Rate FiO2 08/11/17 12:28 98.0 97 20 116/71 (86) 93 08/11/17 10:38 94 08/11/17 08:08 98.1 92 20 133/75 (94) 94 08/11/17 04:19 97.7 92 18 149/67 (94) 94 08/11/17 02:40 98 08/11/17 00:24 98.8 97 18 144/63 (90) 94 08/10/17 20:30 97 08/10/17 20:30 93 21 08/10/17 20:21 97.6 101 18 174/74 (107) 95 Coded Allergies: *MDRO Multi-Drug Resistant Organism (Verified Adverse Reaction, Unknown, ) MRSA (arm wound) - 01/2016 MRSA (blood, urine, wound) - 06/2013 Other Results Laboratory Tests Test 08/10/17 08:18 08/10/17 14:55 08/10/17 20:17 08/11/17 00:45 White Blood Count 20.8 TH/MM3 Red Blood Count 3.47 MIL/MM3 Hemoglobin 8.1 GM/DL Hematocrit 25.0 % Mean Corpuscular Volume 72.2 FL Mean Corpuscular Hemoglobin 23.3 PG Mean Corpuscular Hemoglobin Concent 32.2 % Red Cell Distribution Width 19.0 % Platelet Count 677 TH/MM3 Mean Platelet Volume 7.1 FL Neutrophils (%) (Auto) 78.1 % Lymphocytes (%) (Auto) 12.4 % Monocytes (%) (Auto) 5.6 % Eosinophils (%) (Auto) 2.9 % Basophils (%) (Auto) 1.0 % Neutrophils # (Auto) 16.3 TH/MM3 Lymphocytes # (Auto) 2.6 TH/MM3 Monocytes # (Auto) 1.2 TH/MM3 Eosinophils # (Auto) 0.6 TH/MM3 Basophils # (Auto) 0.2 TH/MM3 CBC Comment DIFF FINAL Differential Comment Blood Urea Nitrogen 16 MG/DL Creatinine 0.81 MG/DL Random Glucose 112 MG/DL Total Protein 5.5 GM/DL Albumin 1.6 GM/DL Calcium Level 8.0 MG/DL Phosphorus Level 3.9 MG/DL Magnesium Level 2.0 MG/DL Alkaline Phosphatase 208 U/L Aspartate Amino Transf (AST/SGOT) 14 U/L Alanine Aminotransferase (ALT/SGPT) 18 U/L Total Bilirubin 0.2 MG/DL Sodium Level 135 MEQ/L Potassium Level 4.2 MEQ/L Chloride Level 103 MEQ/L Carbon Dioxide Level 24.1 MEQ/L Anion Gap 8 MEQ/L Estimat Glomerular Filtration Rate 100 ML/MIN Total Creatine Kinase 15 U/L 20 U/L Troponin I LESS THAN 0.02 NG/ML LESS THAN 0.02 NG/ML Hemoglobin A1c 9.7 % Urine Color LIGHT-YELLOW Urine Turbidity CLEAR Urine pH 6.5 Urine Specific [place] 1.008 Urine Protein 100 mg/dL Urine Glucose (UA) 70 mg/dL Urine Ketones NEG mg/dL Urine Occult Blood NEG Urine Nitrite NEG Urine Bilirubin NEG Urine Urobilinogen LESS THAN 2.0 MG/DL Urine Leukocyte Esterase NEG Urine Bacteria RARE /hpf Microscopic Urinalysis Comment CATH-CULTURE IND Test 08/11/17 02:18 08/11/17 07:44 White Blood Count 19.3 TH/MM3 Red Blood Count 3.30 MIL/MM3 Hemoglobin 7.6 GM/DL Hematocrit 23.8 % Mean Corpuscular Volume 72.3 FL Mean Corpuscular Hemoglobin 23.0 PG Mean Corpuscular Hemoglobin Concent 31.8 % Red Cell Distribution Width 18.7 % Platelet Count 667 TH/MM3 Mean Platelet Volume 7.1 FL Neutrophils (%) (Auto) 71.8 % Lymphocytes (%) (Auto) 17.0 % Monocytes (%) (Auto) 6.2 % Eosinophils (%) (Auto) 3.8 % Basophils (%) (Auto) 1.2 % Neutrophils # (Auto) 13.9 TH/MM3 Lymphocytes # (Auto) 3.3 TH/MM3 Monocytes # (Auto) 1.2 TH/MM3 Eosinophils # (Auto) 0.7 TH/MM3 Basophils # (Auto) 0.2 TH/MM3 CBC Comment DIFF FINAL Differential Comment Total Creatine Kinase 15 U/L Troponin I LESS THAN 0.02 NG/ML Blood Urea Nitrogen 16 MG/DL Creatinine 0.72 MG/DL Random Glucose 118 MG/DL Total Protein 5.5 GM/DL Albumin 1.6 GM/DL Calcium Level 7.8 MG/DL Phosphorus Level 4.2 MG/DL Magnesium Level 2.0 MG/DL Alkaline Phosphatase 228 U/L Aspartate Amino Transf (AST/SGOT) 19 U/L Alanine Aminotransferase (ALT/SGPT) 19 U/L Total Bilirubin 0.2 MG/DL Sodium Level 139 MEQ/L Potassium Level 4.0 MEQ/L Chloride Level 107 MEQ/L Carbon Dioxide Level 23.7 MEQ/L Anion Gap 8 MEQ/L Estimat Glomerular Filtration Rate 114 ML/MIN Triglycerides Level 182 MG/DL Cholesterol Level 173 MG/DL LDL Cholesterol 110 MG/DL HDL Cholesterol 26.8 MG/DL Cholesterol/HDL Ratio 6.45 RATIO Exam-Podiatry Dermatological Exam Ulcers: Location/Measurements LLE warm to warm. NO strikethrough to outer dressing. Assessment & Plan Diagnosis: (1) Osteomyelitis of toe of left foot ICD Codes: M86.9 - Osteomyelitis of toe of left foot Status: Acute (2) Uncontrolled diabetes mellitus ICD Codes: E11.65 - Type 2 diabetes mellitus with hyperglycemia Status: Acute (3) Osteomyelitis ICD Codes: M86.9 - Osteomyelitis, unspecified A/P s/p Left partial calcaneal resection. DOS 08/09/17 Doing well at bedside. Plan to begin wound vac on 08/14/17 Plan for dressing change. Planning d/c per podiatry early next week once ok to d/c with wound vac and PICC. Consider HBO as an outpatient. Julieta Greer DPM Aug 11, 2017 17:01
--- NOTE | 2017-08-11 17:21 | ECHRPT ---
Indication: cva/tia CONCLUSIONS Wall thickness is normal. No regional wall motion abnormalities are present. The left ventricular systolic function is normal with an estimated ejection fraction in the range of 55-60%. Normal left ventricular size. Structurally normal tricuspid valve. There is trace tricuspid valve regurgitation. Moderate mitral annular calcification. Trace to mild mitral regurgitation. Diastolic doming and mi ld thickening of the mitral leaflets with no evidence for mitral stenosis. BP: / HR: Rhythm: MEASUREMENTS (Male / Female) Normal Values Technical Quality:Fair 2D ECHO LV Diastolic Diameter PLAX 4.9 cm 4.2 - 5.9 / 3.9 - 5.3 cm LV Systolic Diameter PLAX 3.7 cm IVS Diastolic Thickness 1.1 cm 0.6 - 1.0 / 0.6 - 0.9 cm LVPW Diastolic Thickness 1.5 cm 0.6 - 1.0 / 0.6 - 0.9 cm LV Relative Wall Thickness 0.5 RV Internal Dim ED PLAX 3.0 cm M-MODE Aortic Root Diameter MM 3.4 cm LA Systolic Diameter MM 3.9 cm LA Ao Ratio MM 1.1 AV Cusp Separation MM 2.0 cm DOPPLER Mitral E Point Velocity 48.9 cm/s Mitral A Point Velocity 52.3 cm/s Mitral E to A Ratio 0.9 LV E' Lateral Velocity 6.0 cm/s Mitral E to LV E' Lateral Ratio 8.1 LV E' Septal Velocity 5.5 cm/s Mitral E to LV E' Septal Ratio 9.0 FINDINGS LEFT VENTRICLE Wall thickness is normal. No regional wall motion abnormalities are present. The left ventricular systolic function is normal with an estimated ejection fraction in the range of 55-60%. Normal left ventricular size. RIGHT VENTRICLE Normal right ventricular size and systolic function. LEFT ATRIUM The left atrial size is normal. RIGHT ATRIUM The right atrial size is normal. ATRIAL SEPTUM Normal atrial septal thickness without atrial level shunting by limited color doppler interrogation. AORTA The aortic root and proximal ascending aorta are normal in size on limited imaging. MITRAL VALVE Moderate mitral annular calcification. Trace to mild mitral regurgitation. Diastolic doming and mi ld thickening of the mitral leaflets with no evidence for mitral stenosis. AORTIC VALVE Trileaflet aortic valve. No aortic valve stenosis or regurgitation. TRICUSPID VALVE Structurally normal tricuspid valve. There is trace tricuspid valve regurgitation. PULMONARY VALVE The pulmonary valve is not well visualized. VESSELS The inferior vena cava is normal in size. PERICARDIUM No pericardial effusion. Candido H. Cam MD (Electronically Signed) Final Date:11 August 2017 17:20
[2017-08-11] MEDS: FLUCONAZOLE 400 MG PREMIX BAG 200 ML IV SCH (21:16)
[2017-08-12] VITALS (8 sets, daily range): BP systolic 128–151; BP diastolic 61–68; PULSE 91–100; RESP 16–20; TEMP 97.7–99.2; O2SAT 93–96
[2017-08-12] MEDS: MORPHINE SULFATE 4 MG/ML INJ IV PUSH PRN ×4 (01:16→22:03)
[2017-08-12] MEDS: SODIUM CHLOR 0.9% 1000 ML INJ 1,000 ML IV SCH ×3 (03:30→23:30)
[2017-08-12] MEDS: hydrALAZINE HCL 25 MG TAB PO SCH ×3 (05:56→20:50)
[2017-08-12 07:05] LABS: AUTOMATED NEUTROPHIL # 14.1 TH/MM3 (1.8-7.7); BASOPHIL # 0.4 TH/MM3 (0-0.2); BASOPHIL % 1.9 % (0.0-2.0); EOSINOPHIL # 0.8 TH/MM3 (0-0.4); EOSINOPHIL % 3.6 % (0.0-4.0); HEMATOCRIT 25.7 % (39.0-51.0); LYMPH % 20.6 % (9.0-44.0); LYMPHOCYTE # 4.3 TH/MM3 (1.0-4.8); MEAN CELL VOLUME 72.8 FL (80.0-100.0); MEAN CORPUSCULAR HGB CONC 31.7 % (32.0-36.0); MONO % 7.2 % (0.0-8.0); NEUT % 66.7 % (16.0-70.0); PLATELET COUNT 738 TH/MM3 (150-450); RED BLOOD COUNT 3.53 MIL/MM3 (4.50-5.90); RED CELL DISTRIBUTION WIDTH 18.9 % (11.6-17.2); WHITE BLOOD COUNT 21.1 TH/MM3 (4.0-11.0)
[2017-08-12 07:11] LABS: HEMO FLAGS AUTO DIFF
[2017-08-12 07:26] LABS: ALT (GPT) 27 U/L (12-78); ANION GAP 7 MEQ/L (5-15); AST (GOT) 18 U/L (15-37); BICARBONATE 23.9 MEQ/L (21.0-32.0); BLOOD UREA NITROGEN 16 MG/DL (7-18); CHLORIDE 103 MEQ/L (98-107); GLOMERULAR FILTRATION RATE 118 ML/MIN (>89); MAGNESIUM 1.9 MG/DL (1.5-2.5); POTASSIUM 4.1 MEQ/L (3.5-5.1); SODIUM (NA) 134 MEQ/L (136-145)
[2017-08-12 07:28] LABS: ALKALINE PHOSPHATASE 236 U/L (45-117); TOTAL BILIRUBIN ADULT 0.1 MG/DL (0.2-1.0)
[2017-08-12] MEDS: INSULIN ASPART SUPPLEMENTAL SCALE SQ SCH ×4 (08:00→20:49)
[2017-08-12] MEDS: SODIUM CHLORIDE 0.9% FLUSH 5 ML FLUSH IV FLUSH SCH ×2 (09:00→20:50)
[2017-08-12 09:25] LABS: BANDS 3 % (0-6); EOSINOPHILS 1 % (0-4); NEUTROPHIL # MANUAL DIFF 16.5 TH/MM3 (1.8-7.7); POLYS (SEG NEUTROPHILS) 75 % (16-70); WBC DIFF SAMPLE 100
[2017-08-12 09:26] LABS: OVALOCYTES 1+ (NORMAL); PLATELET ESTIMATE SMEAR HIGH (NORMAL); PLATELET MORPHOLOGY NORMAL (NORMAL); SCAN/DIFF FINAL DIFF MANUAL
[2017-08-12 09:27] LABS: POLYCHROMASIA 2.3 % (0.0-1.9)
[2017-08-12] MEDS: INSULIN DETEMIR 100 UNITS/ML VIAL SQ SCH ×2 (09:28→20:49)
[2017-08-12] MEDS: HEPARIN SODIUM - SQ 10,000 UNITS/ML VIAL SQ SCH ×2 (09:29→20:50)
[2017-08-12] MEDS: GABAPENTIN 300 MG CAP PO SCH ×4 (09:30→20:50)
[2017-08-12] MEDS: DOCUSATE SODIUM 50 MG/SENNA 8.6 MG TAB PO SCH ×2 (09:30→20:50)
[2017-08-12] MEDS: amLODIPine BESYLATE 5 MG TAB PO SCH ×2 (09:31→20:49)
[2017-08-12] MEDS: FINASTERIDE 5 MG TAB PO SCH (09:31)
[2017-08-12] MEDS: ASPIRIN 81 MG CHEW TAB PO SCH (09:31)
--- NOTE | 2017-08-12 13:02 | HHI.PR ---
Addendum to Inpatient Note Addendum Reason: Additional Documentation Additional Information seen around 1030 am full note to follow Renee Garcia MD Aug 12, 2017 13:02
[2017-08-12] MEDS: cefTRIAXone INJ 2,000 MG in SODIUM CHLORIDE 0.9% INJ 100 ML IV SCH (13:21)
--- NOTE | 2017-08-12 14:55 | MB ---
cc: CHANDLER GATICA MD DATE OF CONSULTATION 08/12/17 REASON FOR CONSULTATION For AUSTEN. HISTORY OF PRESENT ILLNESS The patient is a pleasant 52-year-old gentleman who sees my colleague, Dr. Fine, and who has a history of hypertension, diabetes, peripheral neuropathy, PVD, a chronic left foot ulcer who was found to be bacteremic and thus I have been asked to consult regarding AUSTEN. The patient is asymptomatic from a cardiac standpoint. He denies chest pain, shortness of breath, lightheadedness, dizziness, syncope. PAST MEDICAL HISTORY As above. CURRENT MEDICATIONS 1. Aspirin 81 milligrams daily. 2. IV fluconazole. 3. Proscar. 4. Ceftriaxone. 5. Hydralazine. 6. Amlodipine. 7. Plavix. 8. Protonix. ALLERGIES NO KNOWN DRUG ALLERGIES. PHYSICAL EXAMINATION VITAL SIGNS: Afebrile, pulse 91, respiratory rate 20, BP 151/68, satting 93%. GENERAL: Pleasant well-appearing gentleman in no distress. NECK: No JVD. LUNGS: Clear to auscultation bilaterally. CARDIOVASCULAR: Regular rate, rhythm. No murmurs appreciated. ABDOMEN: Benign. EXTREMITIES: No edema. LABORATORY DATA White count 21.1, hematocrit 25.7, platelets 738. Sodium 134, potassium 4.1, chloride 103, bicarb 23.9, BUN 16, creatinine 0.7, glucose 116. CARDIOLOGY STUDIES EKG was sinus rhythm with no acute ST or T-wave changes. Echocardiogram, have not thus far shown vegetations. Ejection fraction 55-60%. IMPRESSION 1. Bacteremia: The patient has bacteremia and the infectious disease business analysis consultant has requested a AUSTEN. I will make the patient n.p.o. past midnight on Monday into Monday and get consents and leave the ultimate decision regarding AUSTEN planning per his primary construction supervisor/carpenter, Dr. Fine, for Monday morning. Thank you again for the opportunity to participate in this patient's care. Chandler Gatica MD CK/EO /11:28 AM /2:38 PM
[2017-08-12] MEDS: CLOPIDOGREL 75 MG TAB PO SCH (15:06)
[2017-08-12] MEDS: PANTOPRAZOLE SOD 40 MG DELAYED RELEASE TAB PO SCH (15:06)
--- NOTE | 2017-08-12 17:54 | HHI.PR ---
Subjective Remarks denies cp/sob denies fevers/chills good appetite wbc trending up afebrile Objective Vitals Vital Signs Date Time Temp Pulse Resp B/P (MAP) Pulse Ox O2 Delivery O2 Flow Rate FiO2 08/12/17 15:53 98.6 98 20 128/64 (85) 94 08/12/17 12:17 97.7 98 20 148/66 (93) 93 08/12/17 11:55 93 21 08/12/17 08:05 91 08/12/17 07:57 98.4 91 20 151/68 (95) 93 08/12/17 04:53 99.2 92 16 142/66 (91) 96 08/12/17 01:21 18 08/11/17 23:55 98.7 97 18 145/65 (91) 95 08/11/17 19:45 99.5 99 18 134/63 (86) 94 I/O 08/11/17 08/11/17 08/11/17 08/12/17 08/12/17 08/12/17 07:00 15:00 23:00 07:00 15:00 23:00 Intake Total 480 ml 1300 ml 1220 ml 497 ml Output Total 3600 ml 2550 ml 2100 ml 1900 ml Balance -3120 ml -1250 ml -2100 ml -680 ml 497 ml Intake Oral 480 ml 1200 ml 1120 ml IV Total 100 ml 100 ml 497 ml Output Urine Total 3600 ml 2550 ml 2100 ml 1900 ml Bladder Scan Volume Amount 900 ml # Bowel Movements 0 Result Diagram: 08/12/1762108/12/17621 Objective Remarks General: lying in bed, nad Respiratory: Lungs CTA, Non-labored respirations, BS equal, Coarse breath sounds Gastrointestinal: Positive Bowel Sounds, Non-Distended, Non-Tender Cardiovascular: Normal rate, Regular Rhythm Skin: Other (scattered rash forearms) Musculoskeletal: Deformity (none) Psychiatric: Cooperative, Appropriate mood & affect Orientation: oriented to Self, oriented to Place, oriented to Time (with cues) , oriented to Situation Neurologic: Pupils (E RLA), EOM (intact with nystagmus), Facial Symmetry ( symmetric), Speech (clear with no word finding difficulties) Motor: Right Upper Extremity (4+/5), Left Upper Extremity (4+/5), Right Lower Extremity (4+/5), Left Lower Extremity (bandage in place and proximal strength is grossly intact) Procedures DATE OF SURGERY 08/08/2017 PREOPERATIVE DIAGNOSIS Diabetic foot wound left lower extremity. POSTOPERATIVE DIAGNOSIS Diabetic foot wound left lower extremity. PROCEDURE 1. Selective left lower extremity arteriogram. 2. Rechanneling of left superficial femoral artery with balloon angioplasty of the left SFA and above-knee popliteal artery with a 5-mm x 40-mm balloon and then CSI atherectomy SURGEON Dr. Herber Esquivel GRIFFIN HADDAD DPM DATE OF SURGERY: 08/09/2017 PREOPERATIVE DIAGNOSIS 1. Left heel gangrene, dry and stable. 2. Left heel osteomyelitis. 3. Left heel Achilles rupture. POSTOPERATIVE DIAGNOSIS 1. Left heel gangrene, dry and stable. 2. Left heel osteomyelitis. 3. Left heel Achilles rupture. PROCEDURE 1. Left heel partial calcanectomy. 2. Left ankle I&D. Medications and IVs Current Medications Medications (Trade) Dose Ordered Sig/Sumanth Route Start Time Stop Time Status Last Admin (D50w (Syr) Inj) 50 ml UNSCH PRN IV PUSH 08/03/17 19:30 (Glucagon Inj) 1 mg UNSCH PRN OTHER 08/03/17 19:30 (NovoLOG SUPPLEMENTAL SCALE) 1 ACHS SLIDING SCALE SQ 08/03/17 21:00 08/12/17 17:42 Sodium Chloride 1,000 ml @ 100 mls/hr Q10H IV 08/03/17 19:30 08/12/17 13:20 (Zofran Inj) 4 mg Q6H PRN IVP 08/03/17 19:30 08/03/17 21:08 (Heparin Inj) 5,000 units Q12H SQ 08/04/17 09:00 08/12/17 09:29 (Tylenol) 650 mg Q6H PRN PO 08/03/17 19:30 ([employer] 5-325 Mg) 1 tab Q4H PRN PO 08/03/17 19:30 08/11/17 00:03 (Morphine Inj) 2 mg Q3H PRN IV PUSH 08/03/17 19:30 08/12/17 09:34 (Alanna-Colace) 1 tab BID PO 08/03/17 21:00 08/12/17 09:30 (Milk Of Magnesia Liq) 30 ml Q12H PRN PO 08/03/17 19:30 08/07/17 16:42 (Senokot) 17.2 mg Q12H PRN PO 08/03/17 19:30 (Dulcolax Supp) 10 mg DAILY PRN RECTAL 08/03/17 19:30 (Lactulose Liq) 30 ml DAILY PRN PO 08/03/17 19:30 (Plavix) 75 mg DAILY@1600 PO 08/04/17 16:00 08/12/17 15:06 (Neurontin) 600 mg QID PO 08/03/17 21:00 08/12/17 17:42 (Protonix) 40 mg DAILY@1600 PO 08/04/17 16:00 08/12/17 15:06 (Norvasc) 5 mg BID PO 08/05/17 14:15 08/12/17 09:31 (Catapres) 0.1 mg Q4H PRN PO 08/05/17 14:15 (Apresoline) 25 mg Q8HR PO 08/05/17 22:00 08/12/17 13:20 Ceftriaxone Sodium 2000 mg/ Sodium Chloride 100 ml @ 200 mls/hr Q24H IV 08/07/17 14:00 09/18/17 13:59 08/12/17 13:21 (Levemir Inj) 30 units BID SQ 08/08/17 21:00 08/12/17 09:28 (NS Flush) 2 ml BID IV FLUSH 08/10/17 21:00 08/11/17 21:00 (NS Flush) 2 ml UNSCH PRN IV FLUSH 08/10/17 12:45 (Proscar) 5 mg DAILY PO 08/11/17 16:00 08/12/17 09:31 (Aspirin Chew) 81 mg DAILY PO 08/12/17 09:00 08/12/17 09:31 Fluconazole/ Sodium Chloride 200 ml @ 100 mls/hr Q24H IV 08/11/17 20:00 08/11/17 21:16 A/P Problem List: (1) Sepsis ICD Code: A41.9 - Sepsis, unspecified organism Status: Acute (2) Osteomyelitis ICD Code: M86.9 - Osteomyelitis, unspecified (3) Hyperkalemia ICD Code: E87.5 - Hyperkalemia (4) HTN (hypertension) ICD Code: I10 - Essential (primary) hypertension (5) DM (diabetes mellitus) ICD Code: E11.9 - Type 2 diabetes mellitus without complications (6) CVA (cerebral vascular accident) ICD Code: I63.9 - Cerebral infarction, unspecified Status: Acute Assessment and Plan 1. Sepsis: HR 110, WBC 25.4, Source-Left Heel Ulcer. S/p Blood Cultures, Vanco/Zosyn in ER. Follow up cultures, continue IV Abx. 08/12 Blood cultures growing Streptococcus Bovis. ID following. The patient is currently on fluconazole IV and Rocephin IV. Continue antibiotics as per ID recommendations. Patient for AUSTEN on Monday. Appreciate cardiology recommendations and efforts. 2. Osteomyelitis: Left Foot. X-ray w/ erosive changes along posterior calcaneus with possible avulsion injury, MRI Foot with large soft tissue ulcer heal and broad area of osteomyelitis of posterior calcaneus with rupture of Achilles tendon, images reviewed . S/p IV Abx as above, will continue. Consult Podiatry and ID. 3. Hyperkalemia: Mild. K+ 5.5. S/p Insulin/D50 in ER, will repeat in am. Now resolved 4. HTN: Blood pressure much stable. Continue amlodipine 5 mg by mouth daily. Clonidine when necessary, 5. DM: Blood sugar stable. Continue Sliding scale w/ Accu-Cheks. Continue Levemir 30 units subcutaneous twice a day. 6. Left parietal/occipital stroke. Continue aspirin and Plavix. 7. Anemia. Low MCV. I will check iron studies and stool guaiac. Hemoglobin seems to be stable. 8. Thrombocytosis. Likely reactive to iron deficiency anemia. Continue to monitor platelets. 9. Hyperlipidemia: Lipid profile shows an elevated triglycerides of 182, cholesterol 173, LDL cholesterol 110. I will start the patient on Lipitor. 6. DVT Prophylaxis: Heparin sq 7. Social work for d/c planning as needed Discharge Planning Continue to monitor in the medical floor. Problem Qualifiers (1) Sepsis: Qualified Codes: A41.9 - Sepsis, unspecified organism Boo Zamudio MD Aug 12, 2017 17:54
[2017-08-12] MEDS: ATORVASTATIN 40 MG TAB PO SCH (18:59)
[2017-08-12] MEDS: FLUCONAZOLE 400 MG PREMIX BAG 200 ML IV SCH (20:50)
--- NOTE | 2017-08-12 21:26 | HHI.IDPN ---
Subjective Subjective Remarks doing OK afebrile Growing Strep bovis in all 4 bottles scheduled for AUSTEN sp . Left heel partial calcanectomy.' He also developped . Acute/subacute ischemic infarct in the left hemisphere. with transient R side weakness Pt today denies any weakness, no smx of chocking when eats or difficulty talking Antibiotics fluconazole CFTX Allergies: Coded Allergies: *MDRO Multi-Drug Resistant Organism (Verified Adverse Reaction, Unknown, ) MRSA (arm wound) - 01/2016 MRSA (blood, urine, wound) - 06/2013 Objective . Vital Signs Date Time Temp Pulse Resp B/P (MAP) Pulse Ox O2 Delivery O2 Flow Rate FiO2 08/12/17 20:00 98.1 100 20 131/61 (84) 93 08/12/17 15:53 98.6 98 20 128/64 (85) 94 08/12/17 12:17 97.7 98 20 148/66 (93) 93 08/12/17 11:55 93 21 08/12/17 08:05 91 08/12/17 07:57 98.4 91 20 151/68 (95) 93 08/12/17 04:53 99.2 92 16 142/66 (91) 96 08/12/17 01:21 18 08/11/17 23:55 98.7 97 18 145/65 (91) 95 08/12/17 08/12/17 08/13/17 15:00 23:00 07:00 Intake Total 1220 ml 497 ml Output Total 1900 ml Balance -680 ml 497 ml Intake Oral 1120 ml IV Total 100 ml 497 ml Output Urine Total 1900 ml . Laboratory Tests Test 08/11/17 02:18 08/12/17 06:22 White Blood Count 19.3 TH/MM3 21.1 TH/MM3 Red Blood Count 3.30 MIL/MM3 3.53 MIL/MM3 Hemoglobin 7.6 GM/DL 8.1 GM/DL Hematocrit 23.8 % 25.7 % Mean Corpuscular Volume 72.3 FL 72.8 FL Mean Corpuscular Hemoglobin 23.0 PG 23.0 PG Mean Corpuscular Hemoglobin Concent 31.8 % 31.7 % Red Cell Distribution Width 18.7 % 18.9 % Platelet Count 667 TH/MM3 738 TH/MM3 Mean Platelet Volume 7.1 FL 6.8 FL Neutrophils (%) (Auto) 71.8 % 66.7 % Lymphocytes (%) (Auto) 17.0 % 20.6 % Monocytes (%) (Auto) 6.2 % 7.2 % Eosinophils (%) (Auto) 3.8 % 3.6 % Basophils (%) (Auto) 1.2 % 1.9 % Neutrophils # (Auto) 13.9 TH/MM3 14.1 TH/MM3 Lymphocytes # (Auto) 3.3 TH/MM3 4.3 TH/MM3 Monocytes # (Auto) 1.2 TH/MM3 1.5 TH/MM3 Eosinophils # (Auto) 0.7 TH/MM3 0.8 TH/MM3 Basophils # (Auto) 0.2 TH/MM3 0.4 TH/MM3 CBC Comment DIFF FINAL AUTO DIFF Differential Comment FINAL DIFF MANUAL Differential Total Cells Counted 100 Neutrophils % (Manual) 75 % Band Neutrophils % 3 % Lymphocytes % 14 % Monocytes % 7 % Eosinophils % 1 % Neutrophils # (Manual) 16.5 TH/MM3 Platelet Estimate HIGH Platelet Morphology Comment NORMAL Polychromasia 2.3 % Ovalocytes 1+ Laboratory Tests Test 08/11/17 02:18 08/11/17 07:44 08/12/17 06:22 Total Creatine Kinase 15 U/L Troponin I LESS THAN 0.02 NG/ML Blood Urea Nitrogen 16 MG/DL 16 MG/DL Creatinine 0.72 MG/DL 0.70 MG/DL Random Glucose 118 MG/DL 116 MG/DL Total Protein 5.5 GM/DL 5.7 GM/DL Albumin 1.6 GM/DL 1.7 GM/DL Calcium Level 7.8 MG/DL 7.9 MG/DL Phosphorus Level 4.2 MG/DL 3.8 MG/DL Magnesium Level 2.0 MG/DL 1.9 MG/DL Alkaline Phosphatase 228 U/L 236 U/L Aspartate Amino Transf (AST/SGOT) 19 U/L 18 U/L Alanine Aminotransferase (ALT/SGPT) 19 U/L 27 U/L Total Bilirubin 0.2 MG/DL 0.1 MG/DL Sodium Level 139 MEQ/L 134 MEQ/L Potassium Level 4.0 MEQ/L 4.1 MEQ/L Chloride Level 107 MEQ/L 103 MEQ/L Carbon Dioxide Level 23.7 MEQ/L 23.9 MEQ/L Anion Gap 8 MEQ/L 7 MEQ/L Estimat Glomerular Filtration Rate 114 ML/MIN 118 ML/MIN Triglycerides Level 182 MG/DL Cholesterol Level 173 MG/DL LDL Cholesterol 110 MG/DL HDL Cholesterol 26.8 MG/DL Cholesterol/HDL Ratio 6.45 RATIO Microbiology Date/Time Source Procedure Growth Status 08/11/17 00:45 Urine Catheterized Urine Urine Culture - Preliminary NO GROWTH IN 24 HOURS. Resulted Imaging Last Impressions Head Magnetic Resonance Angiography 08/10/17 0000 Signed Impressions: Service Date/Time: July 18:07 - CONCLUSION: Occluded left internal carotid artery. Based on today's ultrasound, this appears to be at the origin and is probably chronic. Associated slightly decreased filling of the left anterior and middle cerebral artery distributions relative to the right. No acute abnormality seen of the intracranial arteries. Jose Francisco Rodriguez MD Head CT 08/10/17 0000 Signed Impressions: Service Date/Time: July 11:34 - CONCLUSION: Evolving left parieto-occipital stroke. No evidence of hemorrhage. Jose Francisco Colon MD Carotid Artery Ultrasound 08/10/17 0000 Signed Impressions: Service Date/Time: July 12:29 - CONCLUSION: 1. Apparent occlusive non-calcified plaque and thrombus in the left internal carotid origin. 2. Mild, less than 50%%, stenosis of the right internal carotid artery secondary to calcified plaque extending from the carotid bulb. 3. Antegrade vertebral artery flow. Eder Biggs MD Brain MRI 08/10/17 0000 Signed Impressions: Service Date/Time: July 18:07 - CONCLUSION: 1. Several small subacute left white matter subacute infarcts as above. No associated mass effect, bleed or midline shift. 2. Left parietal-occipital infarct appears old by MRI. Jose Francisco Rodriguez MD Foot X-Ray 08/09/17 0000 Signed Impressions: Service Date/Time: Wednesday, August 09, 2017 18:57 - CONCLUSION: Large portion of the posterior calcaneus has been surgically resected. Remaining bone has a grossly normal radiographic appearance. Jose Francisco Rodriguez MD Lower Extremity Ultrasound 08/05/17 0000 Signed Impressions: Service Date/Time: Saturday, August 05, 2017 18:13 - CONCLUSION: Negative exam with no evidence of deep venous thrombosis. Stone Sexton MD Aorta w/Runoff CTA 08/04/17 0000 Signed Impressions: Service Date/Time: Friday, August 04, 2017 19:29 - CONCLUSION: 1. Severe atherosclerotic disease. There is a focal short segment high-grade stenosis of the distal left superficial femoral artery. This stenosic segment measures approximately 1 cm in length and represents a change from the prior study. Remaining left lower extremity arterial vessels demonstrate no significant change from the prior exam. 2. Moderate narrowing of the proximal superior mesenteric artery secondary to noncalcified plaque. This finding is stable. 3. Small bilateral pleural effusions with associated compressive atelectasis. Jose Francisco Rogers MD Foot MRI 08/03/17 0000 Signed Impressions: Service Date/Time: July 19:20 - CONCLUSION: Large soft tissue ulcer of the heel and with a broad area of osteomyelitis of the posterior calcaneus. The Achilles tendon is ruptured at its insertion. No drainable abscess. Jose Francisco Rodriguez MD Physical Exam CONSTITUTIONAL/GENERAL: This is an adequately nourished patient, in no apparent distress. TUBES/LINES/DRAINS: SKIN: No jaundice, rashes, or lesions. HEENT: PERRL EOMI no facial weakness Toungue in midline CARDIOVASCULAR: Regular rate and rhythm without murmurs, gallops, or rubs. RESPIRATORY/CHEST: Symmetric, unlabored respirations. Clear to auscultation. Breath sounds equal bilaterally. No wheezes, rales, or rhonchi. GASTROINTESTINAL: Abdomen soft, non-tender, nondistended. No hepato-splenomegaly , or palpable masses. No guarding. Bowel sounds present. MUSCULOSKELETAL: Extremities without clubbing, cyanosis, or edema. L foot with surgical dressing intact NEUROLOGICAL: Awake and alert. Motor and sensory grossly within normal limits. Follows commands. Clear speech Moves all extremities. PSYCHIATRIC: No obvious anxiety/depression. no apparent hallucinations or other psychotic thought process. Assessment & Plan Remarks DFI, dry gangrene L heel sp part calcanectomy COnfirmed underlying vascular insufficiency HIgh grade strep bovis bactermeia L hemischere strokes, occluded L carotid - r/o endocarditis (AUSTEN planned, tomorrow) - ro colonic pathology (colonoscopy planned, elective) cont CFTX dw Renee Cohen MD Aug 12, 2017 21:26
[2017-08-13] VITALS (8 sets, daily range): BP systolic 130–159; BP diastolic 62–82; PULSE 91–100; RESP 16–20; TEMP 97.4–99.3; O2SAT 92–94
[2017-08-13] MEDS: MORPHINE SULFATE 4 MG/ML INJ IV PUSH PRN ×4 (01:05→21:21)
[2017-08-13] MEDS: hydrALAZINE HCL 25 MG TAB PO SCH ×3 (06:12→21:26)
[2017-08-13] MEDS: INSULIN ASPART SUPPLEMENTAL SCALE SQ SCH ×4 (08:00→21:25)
[2017-08-13] MEDS: SODIUM CHLORIDE 0.9% FLUSH 5 ML FLUSH IV FLUSH SCH ×2 (08:04→21:00)
[2017-08-13] MEDS: HEPARIN SODIUM - SQ 10,000 UNITS/ML VIAL SQ SCH ×2 (08:07→21:24)
[2017-08-13] MEDS: ASPIRIN 81 MG CHEW TAB PO SCH (08:07)
[2017-08-13] MEDS: amLODIPine BESYLATE 5 MG TAB PO SCH ×2 (08:07→21:26)
[2017-08-13] MEDS: GABAPENTIN 300 MG CAP PO SCH ×4 (08:07→21:25)
[2017-08-13] MEDS: DOCUSATE SODIUM 50 MG/SENNA 8.6 MG TAB PO SCH ×2 (08:07→21:26)
[2017-08-13] MEDS: INSULIN DETEMIR 100 UNITS/ML VIAL SQ SCH ×2 (08:08→21:25)
[2017-08-13] MEDS: SODIUM CHLOR 0.9% 1000 ML INJ 1,000 ML IV SCH ×2 (08:08→17:55)
[2017-08-13] MEDS: FINASTERIDE 5 MG TAB PO SCH (08:08)
[2017-08-13 08:44] LABS: AUTOMATED NEUTROPHIL # 14.4 TH/MM3 (1.8-7.7); BASOPHIL # 0.3 TH/MM3 (0-0.2); BASOPHIL % 1.4 % (0.0-2.0); EOSINOPHIL # 0.8 TH/MM3 (0-0.4); EOSINOPHIL % 3.7 % (0.0-4.0); HEMATOCRIT 23.7 % (39.0-51.0); HEMO FLAGS DIFF FINAL; LYMPH % 17.5 % (9.0-44.0); LYMPHOCYTE # 3.6 TH/MM3 (1.0-4.8); MEAN CELL VOLUME 73.8 FL (80.0-100.0); MEAN CORPUSCULAR HEMOGLOBIN 23.3 PG (27.0-34.0); MEAN CORPUSCULAR HGB CONC 31.5 % (32.0-36.0); MONO % 7.9 % (0.0-8.0); NEUT % 69.5 % (16.0-70.0); PLATELET COUNT 767 TH/MM3 (150-450); RED BLOOD COUNT 3.21 MIL/MM3 (4.50-5.90); RED CELL DISTRIBUTION WIDTH 19.2 % (11.6-17.2); WHITE BLOOD COUNT 20.7 TH/MM3 (4.0-11.0)
[2017-08-13 08:52] LABS: ANION GAP 10 MEQ/L (5-15); AST (GOT) 16 U/L (15-37); BICARBONATE 21.9 MEQ/L (21.0-32.0); BLOOD UREA NITROGEN 17 MG/DL (7-18); CHLORIDE 106 MEQ/L (98-107); GLOMERULAR FILTRATION RATE 118 ML/MIN (>89); MAGNESIUM 1.8 MG/DL (1.5-2.5); POTASSIUM 4.3 MEQ/L (3.5-5.1); SODIUM (NA) 138 MEQ/L (136-145)
[2017-08-13 08:53] LABS: ALT (GPT) 23 U/L (12-78)
[2017-08-13 08:55] LABS: ALKALINE PHOSPHATASE 231 U/L (45-117); TOTAL BILIRUBIN ADULT 0.2 MG/DL (0.2-1.0)
[2017-08-13] MEDS: ATORVASTATIN 40 MG TAB PO SCH (08:59)
[2017-08-13] MEDS: MAGNESIUM HYDROXIDE SUSP 30 ML CUP PO PRN (10:01)
[2017-08-13] MEDS: cefTRIAXone INJ 2,000 MG in SODIUM CHLORIDE 0.9% INJ 100 ML IV SCH (12:30)
[2017-08-13] MEDS: CLOPIDOGREL 75 MG TAB PO SCH (17:00)
[2017-08-13] MEDS: PANTOPRAZOLE SOD 40 MG DELAYED RELEASE TAB PO SCH (17:00)
--- NOTE | 2017-08-13 18:03 | HHI.PR ---
Subjective Remarks Denies cp/sob no diarrhea had 2 BM's today denies fevers/chills Objective Vitals Vital Signs Date Time Temp Pulse Resp B/P (MAP) Pulse Ox O2 Delivery O2 Flow Rate FiO2 08/13/17 16:00 97.9 91 17 130/82 (98) 94 08/13/17 12:00 97.4 91 17 130/82 (98) 94 08/13/17 10:57 93 21 08/13/17 08:00 96 08/13/17 08:00 98.2 95 16 130/62 (84) 93 08/13/17 04:00 99.3 94 20 145/66 (92) 92 08/13/17 00:00 98.6 100 20 159/72 (101) 93 08/12/17 21:13 98 08/12/17 20:00 98.1 100 20 131/61 (84) 93 I/O 08/12/17 08/12/17 08/12/17 08/13/17 08/13/17 08/13/17 07:00 15:00 23:00 07:00 15:00 23:00 Intake Total 1220 ml 617 ml 2148 ml Output Total 2100 ml 1900 ml 1350 ml 1350 ml Balance -2100 ml -680 ml 617 ml 798 ml -1350 ml Intake Oral 1120 ml 120 ml 240 ml IV Total 100 ml 497 ml 1908 ml Output Urine Total 2100 ml 1900 ml 1350 ml 1350 ml # Bowel Movements 0 4 Result Diagram: 08/13/17 0756 08/13/17 0756 Imaging Last Impressions Head Magnetic Resonance Angiography 08/10/17 0000 Signed Impressions: Service Date/Time: July 18:07 - CONCLUSION: Occluded left internal carotid artery. Based on today's ultrasound, this appears to be at the origin and is probably chronic. Associated slightly decreased filling of the left anterior and middle cerebral artery distributions relative to the right. No acute abnormality seen of the intracranial arteries. Jose Francisco Rodriguez MD Head CT 08/10/17 0000 Signed Impressions: Service Date/Time: July 11:34 - CONCLUSION: Evolving left parieto-occipital stroke. No evidence of hemorrhage. Jose Francisco Colon MD Carotid Artery Ultrasound 08/10/17 0000 Signed Impressions: Service Date/Time: July 12:29 - CONCLUSION: 1. Apparent occlusive non-calcified plaque and thrombus in the left internal carotid origin. 2. Mild, less than 50%%, stenosis of the right internal carotid artery secondary to calcified plaque extending from the carotid bulb. 3. Antegrade vertebral artery flow. Eder Biggs MD Brain MRI 08/10/17 0000 Signed Impressions: Service Date/Time: July 18:07 - CONCLUSION: 1. Several small subacute left white matter subacute infarcts as above. No associated mass effect, bleed or midline shift. 2. Left parietal-occipital infarct appears old by MRI. Jose Francisco Rodriguez MD Foot X-Ray 08/09/17 0000 Signed Impressions: Service Date/Time: Wednesday, August 09, 2017 18:57 - CONCLUSION: Large portion of the posterior calcaneus has been surgically resected. Remaining bone has a grossly normal radiographic appearance. Jose Francisco Rodriguez MD Lower Extremity Ultrasound 08/05/17 0000 Signed Impressions: Service Date/Time: Saturday, August 05, 2017 18:13 - CONCLUSION: Negative exam with no evidence of deep venous thrombosis. Stone Sexton MD Aorta w/Runoff CTA 08/04/17 0000 Signed Impressions: Service Date/Time: Friday, August 04, 2017 19:29 - CONCLUSION: 1. Severe atherosclerotic disease. There is a focal short segment high-grade stenosis of the distal left superficial femoral artery. This stenosic segment measures approximately 1 cm in length and represents a change from the prior study. Remaining left lower extremity arterial vessels demonstrate no significant change from the prior exam. 2. Moderate narrowing of the proximal superior mesenteric artery secondary to noncalcified plaque. This finding is stable. 3. Small bilateral pleural effusions with associated compressive atelectasis. Jose Francisco Rogers MD Foot MRI 08/03/17 0000 Signed Impressions: Service Date/Time: July 19:20 - CONCLUSION: Large soft tissue ulcer of the heel and with a broad area of osteomyelitis of the posterior calcaneus. The Achilles tendon is ruptured at its insertion. No drainable abscess. Jose Francisco Rodriguez MD Objective Remarks General: lying in bed, nad Respiratory: Lungs CTA, Non-labored respirations, BS equal, Coarse breath sounds Gastrointestinal: Positive Bowel Sounds, Non-Distended, Non-Tender Cardiovascular: Normal rate, Regular Rhythm Skin: Other (scattered rash forearms) Musculoskeletal: Deformity (none) Psychiatric: Cooperative, Appropriate mood & affect Orientation: oriented to Self, oriented to Place, oriented to Time (with cues) , oriented to Situation Neurologic: Pupils (E RLA), EOM (intact with nystagmus), Facial Symmetry ( symmetric), Speech (clear with no word finding difficulties) Motor: Right Upper Extremity (4+/5), Left Upper Extremity (4+/5), Right Lower Extremity (4+/5), Left Lower Extremity (bandage in place and proximal strength is grossly intact) Procedures DATE OF SURGERY 08/08/2017 PREOPERATIVE DIAGNOSIS Diabetic foot wound left lower extremity. POSTOPERATIVE DIAGNOSIS Diabetic foot wound left lower extremity. PROCEDURE 1. Selective left lower extremity arteriogram. 2. Rechanneling of left superficial femoral artery with balloon angioplasty of the left SFA and above-knee popliteal artery with a 5-mm x 40-mm balloon and then CSI atherectomy SURGEON Dr. Herber Esquivel GRIFFIN HADDAD DPM DATE OF SURGERY: 08/09/2017 PREOPERATIVE DIAGNOSIS 1. Left heel gangrene, dry and stable. 2. Left heel osteomyelitis. 3. Left heel Achilles rupture. POSTOPERATIVE DIAGNOSIS 1. Left heel gangrene, dry and stable. 2. Left heel osteomyelitis. 3. Left heel Achilles rupture. PROCEDURE 1. Left heel partial calcanectomy. 2. Left ankle I&D. Medications and IVs Current Medications Medications (Trade) Dose Ordered Sig/Sumanth Route Start Time Stop Time Status Last Admin (D50w (Syr) Inj) 50 ml UNSCH PRN IV PUSH 08/03/17 19:30 (Glucagon Inj) 1 mg UNSCH PRN OTHER 08/03/17 19:30 (NovoLOG SUPPLEMENTAL SCALE) 1 ACHS SLIDING SCALE SQ 08/03/17 21:00 08/13/17 17:00 Sodium Chloride 1,000 ml @ 100 mls/hr Q10H IV 08/03/17 19:30 10/1/17 08:08 (Zofran Inj) 4 mg Q6H PRN IVP 08/03/17 19:30 08/03/17 21:08 (Heparin Inj) 5,000 units Q12H SQ 08/04/17 09:00 08/13/17 08:07 (Tylenol) 650 mg Q6H PRN PO 08/03/17 19:30 ([place] 5-325 Mg) 1 tab Q4H PRN PO 08/03/17 19:30 08/11/17 00:03 (Morphine Inj) 2 mg Q3H PRN IV PUSH 08/03/17 19:30 08/13/17 17:53 (Alanna-Colace) 1 tab BID PO 08/03/17 21:00 08/13/17 08:07 (Milk Of Magnesia Liq) 30 ml Q12H PRN PO 08/03/17 19:30 08/13/17 10:01 (Senokot) 17.2 mg Q12H PRN PO 08/03/17 19:30 (Dulcolax Supp) 10 mg DAILY PRN RECTAL 08/03/17 19:30 (Lactulose Liq) 30 ml DAILY PRN PO 08/03/17 19:30 (Plavix) 75 mg DAILY@1600 PO 08/04/17 16:00 08/13/17 17:00 (Neurontin) 600 mg QID PO 08/03/17 21:00 08/13/17 17:00 (Protonix) 40 mg DAILY@1600 PO 08/04/17 16:00 08/13/17 17:00 (Norvasc) 5 mg BID PO 08/05/17 14:15 08/13/17 08:07 (Catapres) 0.1 mg Q4H PRN PO 08/05/17 14:15 (Apresoline) 25 mg Q8HR PO 08/05/17 22:00 08/13/17 12:29 Ceftriaxone Sodium 2000 mg/ Sodium Chloride 100 ml @ 200 mls/hr Q24H IV 08/07/17 14:00 09/18/17 13:59 08/13/17 12:30 (Levemir Inj) 30 units BID SQ 08/08/17 21:00 08/13/17 08:08 (NS Flush) 2 ml BID IV FLUSH 08/10/17 21:00 08/12/17 20:50 (NS Flush) 2 ml UNSCH PRN IV FLUSH 08/10/17 12:45 (Proscar) 5 mg DAILY PO 08/11/17 16:00 08/13/17 08:08 (Aspirin Chew) 81 mg DAILY PO 08/12/17 09:00 08/13/17 08:07 Fluconazole/ Sodium Chloride 200 ml @ 100 mls/hr Q24H IV 08/11/17 20:00 08/12/17 20:50 (Lipitor) 40 mg DAILY PO 08/12/17 19:00 08/13/17 08:59 A/P Problem List: (1) Sepsis ICD Code: A41.9 - Sepsis, unspecified organism Status: Acute (2) Osteomyelitis ICD Code: M86.9 - Osteomyelitis, unspecified (3) Hyperkalemia ICD Code: E87.5 - Hyperkalemia (4) HTN (hypertension) ICD Code: I10 - Essential (primary) hypertension (5) DM (diabetes mellitus) ICD Code: E11.9 - Type 2 diabetes mellitus without complications (6) CVA (cerebral vascular accident) ICD Code: I63.9 - Cerebral infarction, unspecified Status: Acute Assessment and Plan 1. Sepsis: HR 110, WBC 25.4, Source-Left Heel Ulcer. S/p Blood Cultures, Vanco/Zosyn in ER. Follow up cultures, continue IV Abx. 08/12 Blood cultures growing Streptococcus Bovis. ID following. The patient is currently on fluconazole IV and Rocephin IV. Continue antibiotics as per ID recommendations. Patient for AUSTEN on Monday. Appreciate cardiology recommendations and efforts. 08/13 for AUSTEN in am. On Jenn management as above. 2. Osteomyelitis: Left Foot. X-ray w/ erosive changes along posterior calcaneus with possible avulsion injury, MRI Foot with large soft tissue ulcer heal and broad area of osteomyelitis of posterior calcaneus with rupture of Achilles tendon, images reviewed . S/p IV Abx as above, will continue. 08/13 the patient is status post left partial calcaneal resection. Patient to begin wound VAC on 08/14/17. As per podiatry plan is to discharge early next week once okay to DC with wound VAC and PICC line. 3. Hyperkalemia: Mild. K+ 5.5. S/p Insulin/D50 in ER, will repeat in am. Now resolved 4. HTN: Blood pressure much stable. Continue amlodipine 5 mg by mouth daily. Clonidine when necessary, 5. DM: Blood sugar stable. Continue Sliding scale w/ Accu-Cheks. Continue Levemir 30 units subcutaneous twice a day. 6. Left parietal/occipital stroke. Continue aspirin and Plavix. 7. Anemia. Low MCV. I will check iron studies and stool guaiac. Hemoglobin seems to be stable. 8. Thrombocytosis. Likely reactive to iron deficiency anemia. Continue to monitor platelets. 9. Hyperlipidemia: Lipid profile shows an elevated triglycerides of 182, cholesterol 173, LDL cholesterol 110. I will start the patient on Lipitor. 6. DVT Prophylaxis: Heparin sq 7. Social work for d/c planning as needed Discharge Planning Continue to monitor in the medical floor. Problem Qualifiers (1) Sepsis: Qualified Codes: A41.9 - Sepsis, unspecified organism Boo Zamudio MD Aug 13, 2017 18:03
[2017-08-13] MEDS: FLUCONAZOLE 400 MG PREMIX BAG 200 ML IV SCH (21:21)
[2017-08-14] VITALS (8 sets, daily range): BP systolic 122–136; BP diastolic 56–79; PULSE 90–100; RESP 17–20; TEMP 98.3–99.5; O2SAT 92–97
[2017-08-14] MEDS: MORPHINE SULFATE 4 MG/ML INJ IV PUSH PRN ×3 (00:23→22:40)
[2017-08-14] MEDS: hydrALAZINE HCL 25 MG TAB PO SCH ×3 (06:09→22:17)
[2017-08-14] MEDS: SODIUM CHLOR 0.9% 1000 ML INJ 1,000 ML IV SCH ×2 (06:12→15:30)
[2017-08-14] MEDS: INSULIN ASPART SUPPLEMENTAL SCALE SQ SCH ×4 (08:00→22:40)
[2017-08-14] MEDS: SODIUM CHLORIDE 0.9% FLUSH 5 ML FLUSH IV FLUSH SCH ×2 (09:00→21:00)
[2017-08-14 09:44] LABS: FERRITIN 206 NG/ML (26-388); TRANSFERRIN IRON PROFILE 144 MG/DL (200-360)
[2017-08-14] MEDS: ASPIRIN 81 MG CHEW TAB PO SCH (10:23)
[2017-08-14] MEDS: amLODIPine BESYLATE 5 MG TAB PO SCH ×2 (10:23→21:00)
[2017-08-14] MEDS: GABAPENTIN 300 MG CAP PO SCH ×4 (10:23→22:17)
[2017-08-14] MEDS: DOCUSATE SODIUM 50 MG/SENNA 8.6 MG TAB PO SCH ×2 (10:23→22:17)
[2017-08-14] MEDS: ATORVASTATIN 40 MG TAB PO SCH (10:23)
--- NOTE | 2017-08-14 10:23 | PD.CARD.PN ---
Subjective Subjective Remarks Post-AUSTEN No fevers/chills, no SOB/CP Objective Medications Current Medications Medications (Trade) Dose Ordered Sig/Sumanth Route Start Time Stop Time Status Last Admin (D50w (Syr) Inj) 50 ml UNSCH PRN IV PUSH 08/03/17 19:30 (Glucagon Inj) 1 mg UNSCH PRN OTHER 08/03/17 19:30 (NovoLOG SUPPLEMENTAL SCALE) 1 ACHS SLIDING SCALE SQ 08/03/17 21:00 08/13/17 21:25 Sodium Chloride 1,000 ml @ 100 mls/hr Q10H IV 08/03/17 19:30 08/14/17 06:12 (Zofran Inj) 4 mg Q6H PRN IVP 08/03/17 19:30 08/03/17 21:08 (Heparin Inj) 5,000 units Q12H SQ 08/04/17 09:00 08/13/17 21:24 (Tylenol) 650 mg Q6H PRN PO 08/03/17 19:30 ([place] 5-325 Mg) 1 tab Q4H PRN PO 08/03/17 19:30 08/11/17 00:03 (Morphine Inj) 2 mg Q3H PRN IV PUSH 08/03/17 19:30 08/14/17 06:10 (Alanna-Colace) 1 tab BID PO 08/03/17 21:00 08/13/17 21:26 (Milk Of Magnesia Liq) 30 ml Q12H PRN PO 08/03/17 19:30 08/13/17 10:01 (Senokot) 17.2 mg Q12H PRN PO 08/03/17 19:30 (Dulcolax Supp) 10 mg DAILY PRN RECTAL 08/03/17 19:30 (Lactulose Liq) 30 ml DAILY PRN PO 08/03/17 19:30 (Plavix) 75 mg DAILY@1600 PO 08/04/17 16:00 08/13/17 17:00 (Neurontin) 600 mg QID PO 08/03/17 21:00 08/13/17 21:25 (Protonix) 40 mg DAILY@1600 PO 08/04/17 16:00 08/13/17 17:00 (Norvasc) 5 mg BID PO 08/05/17 14:15 08/13/17 21:26 (Catapres) 0.1 mg Q4H PRN PO 08/05/17 14:15 (Apresoline) 25 mg Q8HR PO 08/05/17 22:00 08/14/17 06:09 Ceftriaxone Sodium 2000 mg/ Sodium Chloride 100 ml @ 200 mls/hr Q24H IV 08/07/17 14:00 09/18/17 13:59 08/13/17 12:30 (Levemir Inj) 30 units BID SQ 08/08/17 21:00 08/13/17 21:25 (NS Flush) 2 ml BID IV FLUSH 08/10/17 21:00 08/13/17 21:00 (NS Flush) 2 ml UNSCH PRN IV FLUSH 08/10/17 12:45 (Proscar) 5 mg DAILY PO 08/11/17 16:00 08/13/17 08:08 (Aspirin Chew) 81 mg DAILY PO 08/12/17 09:00 08/13/17 08:07 Fluconazole/ Sodium Chloride 200 ml @ 100 mls/hr Q24H IV 08/11/17 20:00 08/13/17 21:21 (Lipitor) 40 mg DAILY PO 08/12/17 19:00 08/13/17 08:59 Vital Signs / I&O Vital Signs Date Time Temp Pulse Resp B/P (MAP) Pulse Ox O2 Delivery O2 Flow Rate FiO2 08/14/17 09:40 93 08/14/17 08:34 98.6 92 17 132/63 (86) 93 08/14/17 04:52 99.0 90 18 127/63 (84) 92 08/14/17 00:17 99.2 100 20 134/79 (97) 92 08/13/17 19:57 98.1 100 18 139/65 (89) 94 08/13/17 18:13 99 08/13/17 18:10 16 08/13/17 16:00 97.9 91 17 130/82 (98) 94 08/13/17 12:00 97.4 91 17 130/82 (98) 94 08/13/17 10:57 93 21 I/O 08/13/17 08/13/17 08/13/17 08/14/17 08/14/17 08/14/17 07:00 15:00 23:00 07:00 15:00 23:00 Intake Total 2148 ml 200 ml Output Total 1350 ml 1350 ml 2150 ml Balance 798 ml -1350 ml -1950 ml Intake Oral 240 ml IV Total 1908 ml 200 ml Output Urine Total 1350 ml 1350 ml 2150 ml # Bowel Movements 4 0 Physical Exam GENERAL: NAD, AAOx3 SKIN: Warm and dry. HEAD: Atraumatic. Normocephalic. EYES: Pupils equal and round. No scleral icterus. No injection or drainage. ENT: No nasal bleeding or discharge. Mucous membranes pink and moist. NECK: Trachea midline. No JVD. CARDIOVASCULAR: Regular rate and rhythm. RESPIRATORY: No accessory muscle use. Clear to auscultation bilaterally GASTROINTESTINAL: Abdomen soft, non-tender, nondistended. Hepatic and splenic margins not palpable. MUSCULOSKELETAL: Extremities without clubbing, cyanosis, or edema. No obvious deformities. NEUROLOGICAL: Awake and alert. No obvious cranial nerve deficits. Motor grossly within normal limits. Four out of 5 muscle strength in the arms and legs. Normal speech. PSYCHIATRIC: Appropriate mood and affect; insight and judgment normal. Laboratory Laboratory Tests Test 08/14/17 08:25 Iron Level 23 MCG/DL Total Iron Binding Capacity 202 MCG/DL Percent Iron Saturation 11.4 % Ferritin 206 NG/ML Assessment and Plan Problem List: (1) Osteomyelitis of toe of left foot ICD Codes: M86.9 - Osteomyelitis of toe of left foot Status: Acute (2) PAD (peripheral artery disease) ICD Codes: I73.9 - Peripheral vascular disease, unspecified (3) CVA (cerebral vascular accident) ICD Codes: I63.9 - Cerebral infarction, unspecified Status: Acute (4) DM (diabetes mellitus) ICD Codes: E11.9 - Type 2 diabetes mellitus without complications (5) HTN (hypertension) ICD Codes: I10 - Essential (primary) hypertension (6) Hyperkalemia ICD Codes: E87.5 - Hyperkalemia (7) Sepsis ICD Codes: A41.9 - Sepsis, unspecified organism Status: Acute Assessment and Plan 1) CVA Con't ASA/Plavix per neuro 2) AUSTEN showing no endocarditis or cardioembolic cause 3) PAD Left lower extremity recanalized by balloon angioplasty and orbital atherectomy Left ICA occlusion, most likely chronic 4) Severe mitral regurgitation Con't to follow, not a candidate for possible surgical intervention at this time Problem Qualifiers (1) Sepsis: Qualified Codes: A41.9 - Sepsis, unspecified organism Marty Fine DO Aug 14, 2017 10:23
[2017-08-14] MEDS: HEPARIN SODIUM - SQ 10,000 UNITS/ML VIAL SQ SCH ×2 (10:24→22:17)
[2017-08-14] MEDS: FINASTERIDE 5 MG TAB PO SCH (10:24)
[2017-08-14] MEDS: INSULIN DETEMIR 100 UNITS/ML VIAL SQ SCH ×2 (10:27→22:40)
--- NOTE | 2017-08-14 10:38 | ECHRPT ---
Indication: R/O endocarditis CONCLUSIONS The left ventricular systolic function is low normal with an estimated ejection fraction in the rang e of 50- 55%. Severe mitral valve regurgitation. The mitral valve regurgitation jet is directed centrally due to poor leaflet coaptation. BP: 127 / 63 HR: 90 Rhythm: Sinus MEASUREMENTS (Male / Female) Normal Values Technical Quality:Good DOPPLER MR NATALIE FONSECA 7.6 cm Medications Complications None Proc. Components Anesthesia at the bedside for sedation. FINDINGS LEFT VENTRICLE Normal left ventricular size. Wall thickness is normal. The left ventricular systolic function is low normal with an estimated ejection fraction in the rang e of 50- 55%. No regional wall motion abnormalities are present. This study was not technically sufficient to allow for evaluation of left ventricular diastolic func tion. RIGHT VENTRICLE Normal right ventricular size and systolic function. LEFT ATRIUM The left atrial size is mildly dilated. RIGHT ATRIUM The right atrial size is normal. ATRIAL APPENDAGES Normal left atrial appendage size with no evidence of thrombus formation. ATRIAL SEPTUM No atrial level shunt is demonstrated by color flow Doppler interrogation. No atrial level shunt is observed with agitated saline contrast administration. AORTA Descending aorta appears normal with no dissections noted MITRAL VALVE Grossly normal. Mild thickening of the mitral valve leaflets. Severe mitral valve regurgitation. The mitral valve regurgitation jet is directed centrally due to poor leaflet coaptation. No mitral valve stenosis. AORTIC VALVE Trileaflet aortic valve. No aortic valve regurgitation. No aortic valve stenosis. TRICUSPID VALVE Structurally normal tricuspid valve. No tricuspid regurgitation. No tricuspid valve stenosis. VESSELS Grossly normal. No pulmonary valve regurgitation. PERICADIUM There is no pericardial effusion. Marty Fine DO (Electronically Signed) Final Date:14 August 2017 10:37
[2017-08-14] MEDS ORDERED: PROPOFOL 200 MG/20 ML AMP IV ONE (12:00)
[2017-08-14] MEDS ORDERED: LIDOCAINE HCL 1% PF 5 ML AMPULE OTHER ONE (12:00)
--- NOTE | 2017-08-14 13:37 | HHI.PR ---
Subjective Remarks The patient denies chest pain, shortness of breath, nausea, vomiting, abdominal pain Appetite is much better Objective Vitals Vital Signs Date Time Temp Pulse Resp B/P (MAP) Pulse Ox O2 Delivery O2 Flow Rate FiO2 08/14/17 12:00 98.3 92 18 136/67 (90) 97 08/14/17 09:40 93 08/14/17 08:34 98.6 92 17 132/63 (86) 93 08/14/17 04:52 99.0 90 18 127/63 (84) 92 08/14/17 00:17 99.2 100 20 134/79 (97) 92 08/13/17 19:57 98.1 100 18 139/65 (89) 94 08/13/17 18:13 99 08/13/17 18:10 16 08/13/17 16:00 97.9 91 17 130/82 (98) 94 I/O 08/13/17 08/13/17 08/13/17 08/14/17 08/14/17 08/14/17 07:00 15:00 23:00 07:00 15:00 23:00 Intake Total 2148 ml 200 ml Output Total 1350 ml 1350 ml 2150 ml Balance 798 ml -1350 ml -1950 ml Intake Oral 240 ml IV Total 1908 ml 200 ml Output Urine Total 1350 ml 1350 ml 2150 ml # Bowel Movements 4 0 Result Diagram: 08/13/17 0756 08/13/17 0756 Imaging Last Impressions Head Magnetic Resonance Angiography 08/10/17 0000 Signed Impressions: Service Date/Time: July 18:07 - CONCLUSION: Occluded left internal carotid artery. Based on today's ultrasound, this appears to be at the origin and is probably chronic. Associated slightly decreased filling of the left anterior and middle cerebral artery distributions relative to the right. No acute abnormality seen of the intracranial arteries. Jose Francisco Rodriguez MD Head CT 08/10/17 0000 Signed Impressions: Service Date/Time: July 11:34 - CONCLUSION: Evolving left parieto-occipital stroke. No evidence of hemorrhage. Jose Francisco Colon MD Carotid Artery Ultrasound 08/10/17 0000 Signed Impressions: Service Date/Time: July 12:29 - CONCLUSION: 1. Apparent occlusive non-calcified plaque and thrombus in the left internal carotid origin. 2. Mild, less than 50%%, stenosis of the right internal carotid artery secondary to calcified plaque extending from the carotid bulb. 3. Antegrade vertebral artery flow. Eder Biggs MD Brain MRI 08/10/17 0000 Signed Impressions: Service Date/Time: July 18:07 - CONCLUSION: 1. Several small subacute left white matter subacute infarcts as above. No associated mass effect, bleed or midline shift. 2. Left parietal-occipital infarct appears old by MRI. Jose Francisco Rodriguez MD Foot X-Ray 08/09/17 0000 Signed Impressions: Service Date/Time: Wednesday, August 09, 2017 18:57 - CONCLUSION: Large portion of the posterior calcaneus has been surgically resected. Remaining bone has a grossly normal radiographic appearance. Jose Francisco Rodriguez MD Lower Extremity Ultrasound 08/05/17 0000 Signed Impressions: Service Date/Time: Saturday, August 05, 2017 18:13 - CONCLUSION: Negative exam with no evidence of deep venous thrombosis. Stone Sexton MD Aorta w/Runoff CTA 08/04/17 0000 Signed Impressions: Service Date/Time: Friday, August 04, 2017 19:29 - CONCLUSION: 1. Severe atherosclerotic disease. There is a focal short segment high-grade stenosis of the distal left superficial femoral artery. This stenosic segment measures approximately 1 cm in length and represents a change from the prior study. Remaining left lower extremity arterial vessels demonstrate no significant change from the prior exam. 2. Moderate narrowing of the proximal superior mesenteric artery secondary to noncalcified plaque. This finding is stable. 3. Small bilateral pleural effusions with associated compressive atelectasis. Jose Francisco Rogers MD Foot MRI 08/03/17 0000 Signed Impressions: Service Date/Time: July 19:20 - CONCLUSION: Large soft tissue ulcer of the heel and with a broad area of osteomyelitis of the posterior calcaneus. The Achilles tendon is ruptured at its insertion. No drainable abscess. Jose Francisco Rodriguez MD Objective Remarks General: lying in bed, nad Respiratory: Lungs CTA, Non-labored respirations, BS equal, Coarse breath sounds Gastrointestinal: Positive Bowel Sounds, Non-Distended, Non-Tender Cardiovascular: Normal rate, Regular Rhythm Skin: Other (scattered rash forearms) Musculoskeletal: Deformity (none) Psychiatric: Cooperative, Appropriate mood & affect Orientation: oriented to Self, oriented to Place, oriented to Time (with cues) , oriented to Situation Neurologic: Pupils (E RLA), EOM (intact with nystagmus), Facial Symmetry ( symmetric), Speech (clear with no word finding difficulties) Motor: Right Upper Extremity (4+/5), Left Upper Extremity (4+/5), Right Lower Extremity (4+/5), Left Lower Extremity (bandage in place and proximal strength is grossly intact) Procedures DATE OF SURGERY 08/08/2017 PREOPERATIVE DIAGNOSIS Diabetic foot wound left lower extremity. POSTOPERATIVE DIAGNOSIS Diabetic foot wound left lower extremity. PROCEDURE 1. Selective left lower extremity arteriogram. 2. Rechanneling of left superficial femoral artery with balloon angioplasty of the left SFA and above-knee popliteal artery with a 5-mm x 40-mm balloon and then I atherectomy SURGEON Dr. Herber Esquivel GRIFFIN HADDAD DPM DATE OF SURGERY: 08/09/2017 PREOPERATIVE DIAGNOSIS 1. Left heel gangrene, dry and stable. 2. Left heel osteomyelitis. 3. Left heel Achilles rupture. POSTOPERATIVE DIAGNOSIS 1. Left heel gangrene, dry and stable. 2. Left heel osteomyelitis. 3. Left heel Achilles rupture. PROCEDURE 1. Left heel partial calcanectomy. 2. Left ankle I&D. Medications and IVs Current Medications Medications (Trade) Dose Ordered Sig/Sumanth Route Start Time Stop Time Status Last Admin (D50w (Syr) Inj) 50 ml UNSCH PRN IV PUSH 08/03/17 19:30 (Glucagon Inj) 1 mg UNSCH PRN OTHER 08/03/17 19:30 (NovoLOG SUPPLEMENTAL SCALE) 1 ACHS SLIDING SCALE SQ 08/03/17 21:00 08/13/17 21:25 Sodium Chloride 1,000 ml @ 100 mls/hr Q10H IV 08/03/17 19:30 08/14/17 06:12 (Zofran Inj) 4 mg Q6H PRN IVP 08/03/17 19:30 08/03/17 21:08 (Heparin Inj) 5,000 units Q12H SQ 08/04/17 09:00 08/14/17 10:24 (Tylenol) 650 mg Q6H PRN PO 08/03/17 19:30 ([place] 5-325 Mg) 1 tab Q4H PRN PO 08/03/17 19:30 08/11/17 00:03 (Morphine Inj) 2 mg Q3H PRN IV PUSH 08/03/17 19:30 08/14/17 06:10 (Alanna-Colace) 1 tab BID PO 08/03/17 21:00 08/14/17 10:23 (Milk Of Magnesia Liq) 30 ml Q12H PRN PO 08/03/17 19:30 08/13/17 10:01 (Senokot) 17.2 mg Q12H PRN PO 08/03/17 19:30 (Dulcolax Supp) 10 mg DAILY PRN RECTAL 08/03/17 19:30 (Lactulose Liq) 30 ml DAILY PRN PO 08/03/17 19:30 (Plavix) 75 mg DAILY@1600 PO 08/04/17 16:00 08/13/17 17:00 (Neurontin) 600 mg QID PO 08/03/17 21:00 08/14/17 14:02 (Protonix) 40 mg DAILY@1600 PO 08/04/17 16:00 08/13/17 17:00 (Norvasc) 5 mg BID PO 08/05/17 14:15 08/14/17 10:23 (Catapres) 0.1 mg Q4H PRN PO 08/05/17 14:15 (Apresoline) 25 mg Q8HR PO 08/05/17 22:00 08/14/17 14:02 Ceftriaxone Sodium 2000 mg/ Sodium Chloride 100 ml @ 200 mls/hr Q24H IV 08/07/17 14:00 09/18/17 13:59 08/14/17 14:03 (Levemir Inj) 30 units BID SQ 08/08/17 21:00 08/14/17 10:27 (NS Flush) 2 ml BID IV FLUSH 08/10/17 21:00 08/14/17 09:00 (NS Flush) 2 ml UNSCH PRN IV FLUSH 08/10/17 12:45 (Proscar) 5 mg DAILY PO 08/11/17 16:00 08/14/17 10:24 (Aspirin Chew) 81 mg DAILY PO 08/12/17 09:00 08/14/17 10:23 Fluconazole/ Sodium Chloride 200 ml @ 100 mls/hr Q24H IV 08/11/17 20:00 08/13/17 21:21 (Lipitor) 40 mg DAILY PO 08/12/17 19:00 08/14/17 10:23 Urinary Catheter: No Vascular Central Line Catheter: No A/P Problem List: (1) Sepsis ICD Code: A41.9 - Sepsis, unspecified organism Status: Acute (2) Osteomyelitis ICD Code: M86.9 - Osteomyelitis, unspecified (3) Hyperkalemia ICD Code: E87.5 - Hyperkalemia (4) HTN (hypertension) ICD Code: I10 - Essential (primary) hypertension (5) DM (diabetes mellitus) ICD Code: E11.9 - Type 2 diabetes mellitus without complications (6) CVA (cerebral vascular accident) ICD Code: I63.9 - Cerebral infarction, unspecified Status: Acute Assessment and Plan 1. Sepsis: HR 110, WBC 25.4, Source-Left Heel Ulcer. S/p Blood Cultures, Vanco/Zosyn in ER. Follow up cultures, continue IV Abx. 08/12 Blood cultures growing Streptococcus Bovis. ID following. The patient is currently on fluconazole IV and Rocephin IV. Continue antibiotics as per ID recommendations. Patient for AUSTEN on Monday. Appreciate cardiology recommendations and efforts. 08/14 AUSTEN negative. Follow-up ID recommendations. Antibiotics as per ID. 2. Osteomyelitis: Left Foot. X-ray w/ erosive changes along posterior calcaneus with possible avulsion injury, MRI Foot with large soft tissue ulcer heal and broad area of osteomyelitis of posterior calcaneus with rupture of Achilles tendon, images reviewed . S/p IV Abx as above, will continue. 08/13 the patient is status post left partial calcaneal resection. Patient to begin wound VAC on 08/14/17. As per podiatry plan is to discharge early next week once okay to DC with wound VAC and PICC line. 3. Hyperkalemia: Mild. K+ 5.5. S/p Insulin/D50 in ER, will repeat in am. Now resolved. Continue to monitor BMP. 4. HTN: Blood pressure much stable. Continue amlodipine 5 mg by mouth daily. Clonidine when necessary, 5. DM: Blood sugar stable. Continue Sliding scale w/ Accu-Cheks. Continue Levemir 30 units subcutaneous twice a day. 6. Left parietal/occipital stroke. Continue aspirin and Plavix. 7. Anemia. Low MCV. I will check iron studies and stool guaiac. Hemoglobin seems to be stable. 10/2 iron studies concurrent with iron deficiency anemia. I will start IV iron dextran, stool Hemoccult ordered and pending. GI has been consulted. The patient felt he could not prep for a colonoscopy. Will call when patient is ready. 8. Thrombocytosis. Likely reactive to iron deficiency anemia. Continue to monitor platelets. 9. Hyperlipidemia: Lipid profile shows an elevated triglycerides of 182, cholesterol 173, LDL cholesterol 110. I will start the patient on Lipitor. 6. DVT Prophylaxis: Heparin sq 7. Social work for d/c planning as needed Discharge Planning Continue to monitor in the medical floor. Problem Qualifiers (1) Sepsis: Qualified Codes: A41.9 - Sepsis, unspecified organism Boo Zamudio MD Aug 14, 2017 13:37
[2017-08-14] MEDS: cefTRIAXone INJ 2,000 MG in SODIUM CHLORIDE 0.9% INJ 100 ML IV SCH (14:03)
[2017-08-14] MEDS ORDERED: IRON DEXTRAN 100 MG/2 ML VIAL IV PUSH SCH (14:30)
[2017-08-14] MEDS: CLOPIDOGREL 75 MG TAB PO SCH (17:08)
[2017-08-14] MEDS: PANTOPRAZOLE SOD 40 MG DELAYED RELEASE TAB PO SCH (17:08)
[2017-08-14] MEDS: FLUCONAZOLE 400 MG PREMIX BAG 200 ML IV SCH (22:17)
[2017-08-15] VITALS (9 sets, daily range): BP systolic 103–135; BP diastolic 57–60; PULSE 87–105; RESP 17–20; TEMP 97.6–98.5; O2SAT 93–96
[2017-08-15] MEDS: MORPHINE SULFATE 4 MG/ML INJ IV PUSH PRN ×2 (03:03→21:01)
[2017-08-15] MEDS: hydrALAZINE HCL 25 MG TAB PO SCH ×3 (05:42→20:59)
[2017-08-15] MEDS: INSULIN ASPART SUPPLEMENTAL SCALE SQ SCH ×4 (08:00→21:00)
[2017-08-15] MEDS: SODIUM CHLORIDE 0.9% FLUSH 5 ML FLUSH IV FLUSH SCH ×2 (09:00→21:00)
[2017-08-15] MEDS: GABAPENTIN 300 MG CAP PO SCH ×4 (09:01→21:00)
[2017-08-15] MEDS: amLODIPine BESYLATE 5 MG TAB PO SCH ×2 (09:01→21:00)
[2017-08-15] MEDS: ASPIRIN 81 MG CHEW TAB PO SCH (09:02)
[2017-08-15] MEDS: DOCUSATE SODIUM 50 MG/SENNA 8.6 MG TAB PO SCH ×2 (09:02→21:00)
[2017-08-15] MEDS: INSULIN DETEMIR 100 UNITS/ML VIAL SQ SCH ×2 (09:02→21:00)
[2017-08-15] MEDS: HEPARIN SODIUM - SQ 10,000 UNITS/ML VIAL SQ SCH ×2 (09:02→21:00)
[2017-08-15] MEDS: ATORVASTATIN 40 MG TAB PO SCH (09:02)
[2017-08-15] MEDS: FINASTERIDE 5 MG TAB PO SCH (09:02)
[2017-08-15] MEDS: MAGNESIUM HYDROXIDE SUSP 30 ML CUP PO PRN (09:08)
[2017-08-15] MEDS: cefTRIAXone INJ 2,000 MG in SODIUM CHLORIDE 0.9% INJ 100 ML IV SCH (13:47)
[2017-08-15] MEDS: SODIUM CHLOR 0.9% 1000 ML INJ 1,000 ML IV SCH ×2 (14:17→21:15)
--- NOTE | 2017-08-15 14:55 | PD.CARD.PN ---
Subjective Subjective Remarks No events overnight No chest pain/SOB Objective Medications Current Medications Medications (Trade) Dose Ordered Sig/Sumanth Route Start Time Stop Time Status Last Admin (D50w (Syr) Inj) 50 ml UNSCH PRN IV PUSH 08/03/17 19:30 (Glucagon Inj) 1 mg UNSCH PRN OTHER 08/03/17 19:30 (NovoLOG SUPPLEMENTAL SCALE) 1 ACHS SLIDING SCALE SQ 08/03/17 21:00 08/14/17 22:40 Sodium Chloride 1,000 ml @ 100 mls/hr Q10H IV 08/03/17 19:30 08/15/17 14:17 (Zofran Inj) 4 mg Q6H PRN IVP 08/03/17 19:30 08/03/17 21:08 (Heparin Inj) 5,000 units Q12H SQ 08/04/17 09:00 08/15/17 09:02 (Tylenol) 650 mg Q6H PRN PO 08/03/17 19:30 ([place] 5-325 Mg) 1 tab Q4H PRN PO 08/03/17 19:30 08/11/17 00:03 (Morphine Inj) 2 mg Q3H PRN IV PUSH 08/03/17 19:30 08/15/17 03:03 (Alanna-Colace) 1 tab BID PO 08/03/17 21:00 08/15/17 09:02 (Milk Of Magnesia Liq) 30 ml Q12H PRN PO 08/03/17 19:30 08/15/17 09:08 (Senokot) 17.2 mg Q12H PRN PO 08/03/17 19:30 (Dulcolax Supp) 10 mg DAILY PRN RECTAL 08/03/17 19:30 (Lactulose Liq) 30 ml DAILY PRN PO 08/03/17 19:30 (Plavix) 75 mg DAILY@1600 PO 08/04/17 16:00 08/14/17 17:08 (Neurontin) 600 mg QID PO 08/03/17 21:00 08/15/17 13:47 (Protonix) 40 mg DAILY@1600 PO 08/04/17 16:00 08/14/17 17:08 (Norvasc) 5 mg BID PO 08/05/17 14:15 08/15/17 09:01 (Catapres) 0.1 mg Q4H PRN PO 08/05/17 14:15 (Apresoline) 25 mg Q8HR PO 08/05/17 22:00 08/15/17 13:47 Ceftriaxone Sodium 2000 mg/ Sodium Chloride 100 ml @ 200 mls/hr Q24H IV 08/07/17 14:00 09/18/17 13:59 08/15/17 13:47 (Levemir Inj) 30 units BID SQ 08/08/17 21:00 08/15/17 09:02 (NS Flush) 2 ml BID IV FLUSH 08/10/17 21:00 08/14/17 21:00 (NS Flush) 2 ml UNSCH PRN IV FLUSH 08/10/17 12:45 (Proscar) 5 mg DAILY PO 08/11/17 16:00 08/15/17 09:02 (Aspirin Chew) 81 mg DAILY PO 08/12/17 09:00 08/15/17 09:02 Fluconazole/ Sodium Chloride 200 ml @ 100 mls/hr Q24H IV 08/11/17 20:00 08/14/17 22:17 (Lipitor) 40 mg DAILY PO 08/12/17 19:00 08/15/17 09:02 Vital Signs / I&O Vital Signs Date Time Temp Pulse Resp B/P (MAP) Pulse Ox O2 Delivery O2 Flow Rate FiO2 08/15/17 12:13 98.5 96 20 129/60 (83) 94 08/15/17 07:57 98.2 90 19 124/60 (81) 94 08/15/17 04:00 98.2 87 17 125/57 (79) 96 08/15/17 00:00 98.0 99 18 133/60 (84) 93 08/14/17 20:04 98 08/14/17 20:00 99.0 100 18 122/70 (87) 93 08/14/17 15:43 99.5 99 18 124/56 (78) 94 I/O 08/14/17 08/14/17 08/14/17 08/15/17 08/15/17 08/15/17 07:00 15:00 23:00 07:00 15:00 23:00 Intake Total 200 ml 100 ml 840 ml Output Total 2150 ml 3550 ml 1050 ml Balance -1950 ml 100 ml -2710 ml -1050 ml Intake Oral 840 ml IV Total 200 ml 100 ml Output Urine Total 2150 ml 3550 ml 1050 ml # Bowel Movements 0 0 0 Physical Exam GENERAL: NAD, AAOx3 SKIN: Warm and dry. HEAD: Atraumatic. Normocephalic. EYES: Pupils equal and round. No scleral icterus. No injection or drainage. ENT: No nasal bleeding or discharge. Mucous membranes pink and moist. NECK: Trachea midline. No JVD. CARDIOVASCULAR: Regular rate and rhythm. RESPIRATORY: No accessory muscle use. Clear to auscultation bilaterally GASTROINTESTINAL: Abdomen soft, non-tender, nondistended. Hepatic and splenic margins not palpable. MUSCULOSKELETAL: Extremities without clubbing, cyanosis, or edema. No obvious deformities. NEUROLOGICAL: Awake and alert. No obvious cranial nerve deficits. Motor grossly within normal limits. Four out of 5 muscle strength in the arms and legs. Normal speech. PSYCHIATRIC: Appropriate mood and affect; insight and judgment normal. Assessment and Plan Problem List: (1) Osteomyelitis of toe of left foot ICD Codes: M86.9 - Osteomyelitis of toe of left foot Status: Acute (2) PAD (peripheral artery disease) ICD Codes: I73.9 - Peripheral vascular disease, unspecified (3) CVA (cerebral vascular accident) ICD Codes: I63.9 - Cerebral infarction, unspecified Status: Acute (4) DM (diabetes mellitus) ICD Codes: E11.9 - Type 2 diabetes mellitus without complications (5) HTN (hypertension) ICD Codes: I10 - Essential (primary) hypertension (6) Hyperkalemia ICD Codes: E87.5 - Hyperkalemia (7) Sepsis ICD Codes: A41.9 - Sepsis, unspecified organism Status: Acute Assessment and Plan 1) CVA Con't ASA/Plavix per neuro No Atrial Fibrillation noted on telemetry, con't to follow 2) AUSTEN showing no endocarditis or cardioembolic cause 3) PAD Left lower extremity recanalized by balloon angioplasty and orbital atherectomy Left ICA occlusion, most likely chronic 4) Severe mitral regurgitation Con't to follow, not a candidate for possible surgical intervention at this time 5) Bacteremia Per ID Needs C-scope at some point to rule out colon cancer Problem Qualifiers (1) Sepsis: Qualified Codes: A41.9 - Sepsis, unspecified organism Marty Fine DO Aug 15, 2017 14:55
[2017-08-15 17:56] LABS: AUTOMATED NEUTROPHIL # 16.5 TH/MM3 (1.8-7.7); BASOPHIL # 0.1 TH/MM3 (0-0.2); BASOPHIL % 0.7 % (0.0-2.0); EOSINOPHIL # 0.5 TH/MM3 (0-0.4); EOSINOPHIL % 2.5 % (0.0-4.0); HEMATOCRIT 26.4 % (39.0-51.0); HEMO FLAGS DIFF FINAL; LYMPH % 16.6 % (9.0-44.0); LYMPHOCYTE # 3.7 TH/MM3 (1.0-4.8); MEAN CELL VOLUME 74.2 FL (80.0-100.0); NEUT % 74.2 % (16.0-70.0); PLATELET COUNT 822 TH/MM3 (150-450); RED BLOOD COUNT 3.55 MIL/MM3 (4.50-5.90); RED CELL DISTRIBUTION WIDTH 19.2 % (11.6-17.2); WHITE BLOOD COUNT 22.2 TH/MM3 (4.0-11.0)
[2017-08-15] MEDS: PANTOPRAZOLE SOD 40 MG DELAYED RELEASE TAB PO SCH (18:27)
[2017-08-15] MEDS: CLOPIDOGREL 75 MG TAB PO SCH (18:28)
--- NOTE | 2017-08-15 19:19 | RADRPT ---
EXAM DATE/TIME: 08/15/2017 19:02 [place] COMPARISON: MRI BRAIN W/O CONTRAST, August 10, 2017, 18:07. CT BRAIN W/O CONTRAST, August 10, 2017, 11:34. INDICATIONS : Slurred speech, recent CVA. RADIATION DOSE: 48.45 CTDIvol (mGy) MEDICAL HISTORY : Cardiovascular disease. Hypertension. Chronic obstructive pulmonary disease.Diabetes. Skin cancer. SURGICAL HISTORY : None. ENCOUNTER: Initial ACUITY: 1 day PAIN SCALE: 0/10 LOCATION: cranial TECHNIQUE: Multiple contiguous axial images were obtained of the head. Using automated exposure control and adj ustment of the mA and/or kV according to patient size, radiation dose was kept as low as reasonably a chievable to obtain optimal diagnostic quality images. DICOM format image data is available electro nically for review and comparison. FINDINGS: There are stable left parietal-occipital and frontal hypodensities. No new suspicious abnormalities. No evidence of hemorrhage or mass. No changes associated with known small subacute infarctions. Extra cranial structures are benign and intact. CONCLUSION: No new acute findings Jose Francisco Colon MD on August 15, 2017 at 19:15 Board Certified Radiologist. This report was verified electronically.
[2017-08-15] MEDS: FLUCONAZOLE 400 MG PREMIX BAG 200 ML IV SCH (20:59)
--- NOTE | 2017-08-15 22:01 | PD.POD ---
Subjective Podiatric Problems s/p partial calcanectomy 08/10/17 Dr Greer Pain scale used: 0-10 numeric scale Pain score: 0 Past Med/Surg/Social History Social History Smoking Status: Current Every Day Smoker Objective Vital Signs Vital Signs Date Time Temp Pulse Resp B/P (MAP) Pulse Ox O2 Delivery O2 Flow Rate FiO2 08/15/17 21:00 97.9 98 19 135/60 (85) 96 08/15/17 19:00 95 08/15/17 17:59 96 21 08/15/17 15:52 97.6 105 20 103/58 (73) 96 08/15/17 12:13 98.5 96 20 129/60 (83) 94 08/15/17 08:00 91 08/15/17 07:57 98.2 90 19 124/60 (81) 94 08/15/17 04:00 98.2 87 17 125/57 (79) 96 08/15/17 00:00 98.0 99 18 133/60 (84) 93 Coded Allergies: *MDRO Multi-Drug Resistant Organism (Verified Adverse Reaction, Unknown, ) MRSA (arm wound) - 01/2016 MRSA (blood, urine, wound) - 06/2013 Other Results Microbiology Date/Time Source Procedure Growth Status 08/06/17 11:20 Blood Peripheral Aerobic Blood Culture - Final NO GROWTH IN 5 DAYS Complete 08/06/17 11:20 Blood Peripheral Anaerobic Blood Culture - Final NO GROWTH IN 5 DAYS Complete 08/15/17 13:35 Stool Stool Stool Occult Blood (ABHISHEK) - Final HEMOCCULT NEGATIVE Complete 08/11/17 00:45 Urine Catheterized Urine Urine Culture - Final NO GROWTH IN 48 HOURS. Complete 08/09/17 18:57 Wound Heel Fungal Smear - Final NO FUNGAL ELEMENTS SEEN. Resulted 08/09/17 18:57 Fungal Culture - Preliminary Crystal Tropicalis Resulted Objective Remarks Laboratory Tests Test 08/03/17 17:37 08/05/17 07:17 08/10/17 20:17 08/11/17 00:45 Erythrocyte Sedimentation Rate 24 mm/hr Prothrombin Time 13.5 SEC Prothromb Time International Ratio 1.2 RATIO Activated Partial Thromboplast Time 25.6 SEC Lactic Acid Level 1.3 mmol/L C-Reactive Protein 9.20 MG/DL Free Thyroxine 0.93 NG/DL Thyroid Stimulating Hormone 3rd Gen 2.050 uIU/ML Vancomycin Level Trough 7.2 MCG/ML Hemoglobin A1c 9.7 % Urine Color LIGHT-YELLOW Urine Turbidity CLEAR Urine pH 6.5 Urine Specific [place] 1.008 Urine Protein 100 mg/dL Urine Glucose (UA) 70 mg/dL Urine Ketones NEG mg/dL Urine Occult Blood NEG Urine Nitrite NEG Urine Bilirubin NEG Urine Urobilinogen LESS THAN 2.0 MG/DL Urine Leukocyte Esterase NEG Urine Bacteria RARE /hpf Microscopic Urinalysis Comment CATH-CULTURE IND Test 08/11/17 02:18 08/11/17 07:44 08/12/17 06:22 08/13/17 07:56 Total Creatine Kinase 15 U/L Troponin I LESS THAN 0.02 NG/ML Triglycerides Level 182 MG/DL Cholesterol Level 173 MG/DL LDL Cholesterol 110 MG/DL HDL Cholesterol 26.8 MG/DL Cholesterol/HDL Ratio 6.45 RATIO Differential Total Cells Counted 100 Neutrophils % (Manual) 75 % Band Neutrophils % 3 % Lymphocytes % 14 % Monocytes % 7 % Eosinophils % 1 % Neutrophils # (Manual) 16.5 TH/MM3 Platelet Estimate HIGH Platelet Morphology Comment NORMAL Polychromasia 2.3 % Ovalocytes 1+ Blood Urea Nitrogen 17 MG/DL Creatinine 0.70 MG/DL Random Glucose 95 MG/DL Total Protein 5.6 GM/DL Albumin 1.7 GM/DL Calcium Level 8.0 MG/DL Phosphorus Level 3.6 MG/DL Magnesium Level 1.8 MG/DL Alkaline Phosphatase 231 U/L Aspartate Amino Transf (AST/SGOT) 16 U/L Alanine Aminotransferase (ALT/SGPT) 23 U/L Total Bilirubin 0.2 MG/DL Sodium Level 138 MEQ/L Potassium Level 4.3 MEQ/L Chloride Level 106 MEQ/L Carbon Dioxide Level 21.9 MEQ/L Anion Gap 10 MEQ/L Estimat Glomerular Filtration Rate 118 ML/MIN Test 08/14/17 08:25 08/15/17 17:45 Iron Level 23 MCG/DL Total Iron Binding Capacity 202 MCG/DL Percent Iron Saturation 11.4 % Ferritin 206 NG/ML White Blood Count 22.2 TH/MM3 Red Blood Count 3.55 MIL/MM3 Hemoglobin 8.2 GM/DL Hematocrit 26.4 % Mean Corpuscular Volume 74.2 FL Mean Corpuscular Hemoglobin 23.0 PG Mean Corpuscular Hemoglobin Concent 31.0 % Red Cell Distribution Width 19.2 % Platelet Count 822 TH/MM3 Mean Platelet Volume 6.8 FL Neutrophils (%) (Auto) 74.2 % Lymphocytes (%) (Auto) 16.6 % Monocytes (%) (Auto) 6.0 % Eosinophils (%) (Auto) 2.5 % Basophils (%) (Auto) 0.7 % Neutrophils # (Auto) 16.5 TH/MM3 Lymphocytes # (Auto) 3.7 TH/MM3 Monocytes # (Auto) 1.3 TH/MM3 Eosinophils # (Auto) 0.5 TH/MM3 Basophils # (Auto) 0.1 TH/MM3 CBC Comment DIFF FINAL Differential Comment Assessment & Plan A/P s/p partial calcanectomy 08/10/17 Dr Greer Continue with plan for wound vac and PICC upon d/c. No further treatment planned. Re-consult if new issues arise Jesus Mancini DPM Aug 15, 2017 22:01
[2017-08-16] VITALS (10 sets, daily range): BP systolic 125–135; BP diastolic 56–71; PULSE 95–104; RESP 17–19; TEMP 97.5–98.7; O2SAT 92–98
--- NOTE | 2017-08-16 00:33 | HHI.PR ---
Subjective Remarks As per RN patient had bad reaction with slurred speech and near syncope yesterday after IV iron infusion. Patient today with waxing and waning slurred speech patient denies cp/sob vital signs stable. Objective Vitals Vital Signs Date Time Temp Pulse Resp B/P (MAP) Pulse Ox O2 Delivery O2 Flow Rate FiO2 08/15/17 21:00 97.9 98 19 135/60 (85) 96 08/15/17 19:00 95 08/15/17 17:59 96 21 08/15/17 15:52 97.6 105 20 103/58 (73) 96 08/15/17 12:13 98.5 96 20 129/60 (83) 94 08/15/17 08:00 91 08/15/17 07:57 98.2 90 19 124/60 (81) 94 08/15/17 04:00 98.2 87 17 125/57 (79) 96 I/O 08/15/17 08/15/17 08/15/17 08/16/17 08/16/17 08/16/17 07:00 15:00 23:00 07:00 15:00 23:00 Intake Total 1797 ml 2100 ml Output Total 1050 ml 1650 ml 800 ml Balance -1050 ml 147 ml 1300 ml Intake Oral 720 ml 2100 ml IV Total 1077 ml Output Urine Total 1050 ml 1650 ml 800 ml # Bowel Movements 0 0 Result Diagram: 08/15/17 1745 08/13/17 0756 Objective Remarks General: lying in bed, nad Respiratory: Lungs CTA, Non-labored respirations, BS equal, Coarse breath sounds Gastrointestinal: Positive Bowel Sounds, Non-Distended, Non-Tender Cardiovascular: Normal rate, Regular Rhythm Skin: Other (scattered rash forearms) Musculoskeletal: Deformity (none) Psychiatric: Cooperative, Appropriate mood & affect Orientation: oriented to Self, oriented to Place, oriented to Time (with cues) , oriented to Situation Neurologic: Pupils (E RLA), EOM (intact with nystagmus), Facial Symmetry ( symmetric), Speech (clear with no word finding difficulties) Motor: Right Upper Extremity (4+/5), Left Upper Extremity (4+/5), Right Lower Extremity (4+/5), Left Lower Extremity (bandage in place and proximal strength is grossly intact) Procedures DATE OF SURGERY 08/08/2017 PREOPERATIVE DIAGNOSIS Diabetic foot wound left lower extremity. POSTOPERATIVE DIAGNOSIS Diabetic foot wound left lower extremity. PROCEDURE 1. Selective left lower extremity arteriogram. 2. Rechanneling of left superficial femoral artery with balloon angioplasty of the left SFA and above-knee popliteal artery with a 5-mm x 40-mm balloon and then I atherectomy SURGEON Dr. Herber Esquivel GRIFFIN HADDAD DPM DATE OF SURGERY: 08/09/2017 PREOPERATIVE DIAGNOSIS 1. Left heel gangrene, dry and stable. 2. Left heel osteomyelitis. 3. Left heel Achilles rupture. POSTOPERATIVE DIAGNOSIS 1. Left heel gangrene, dry and stable. 2. Left heel osteomyelitis. 3. Left heel Achilles rupture. PROCEDURE 1. Left heel partial calcanectomy. 2. Left ankle I&D. Medications and IVs Current Medications Medications (Trade) Dose Ordered Sig/Sumanth Route Start Time Stop Time Status Last Admin (D50w (Syr) Inj) 50 ml UNSCH PRN IV PUSH 08/03/17 19:30 (Glucagon Inj) 1 mg UNSCH PRN OTHER 08/03/17 19:30 (NovoLOG SUPPLEMENTAL SCALE) 1 ACHS SLIDING SCALE SQ 08/03/17 21:00 08/15/17 21:00 Sodium Chloride 1,000 ml @ 100 mls/hr Q10H IV 08/03/17 19:30 08/15/17 21:15 (Zofran Inj) 4 mg Q6H PRN IVP 08/03/17 19:30 08/03/17 21:08 (Heparin Inj) 5,000 units Q12H SQ 08/04/17 09:00 08/15/17 21:00 (Tylenol) 650 mg Q6H PRN PO 08/03/17 19:30 ([place] 5-325 Mg) 1 tab Q4H PRN PO 08/03/17 19:30 08/11/17 00:03 (Morphine Inj) 2 mg Q3H PRN IV PUSH 08/03/17 19:30 08/15/17 21:01 (Alanna-Colace) 1 tab BID PO 08/03/17 21:00 08/15/17 21:00 (Milk Of Magnesia Liq) 30 ml Q12H PRN PO 08/03/17 19:30 08/15/17 09:08 (Senokot) 17.2 mg Q12H PRN PO 08/03/17 19:30 (Dulcolax Supp) 10 mg DAILY PRN RECTAL 08/03/17 19:30 (Lactulose Liq) 30 ml DAILY PRN PO 08/03/17 19:30 (Plavix) 75 mg DAILY@1600 PO 08/04/17 16:00 08/15/17 18:28 (Neurontin) 600 mg QID PO 08/03/17 21:00 08/15/17 21:00 (Protonix) 40 mg DAILY@1600 PO 08/04/17 16:00 08/15/17 18:27 (Norvasc) 5 mg BID PO 08/05/17 14:15 08/15/17 21:00 (Catapres) 0.1 mg Q4H PRN PO 08/05/17 14:15 (Apresoline) 25 mg Q8HR PO 08/05/17 22:00 08/15/17 20:59 Ceftriaxone Sodium 2000 mg/ Sodium Chloride 100 ml @ 200 mls/hr Q24H IV 08/07/17 14:00 09/18/17 13:59 08/15/17 13:47 (Levemir Inj) 30 units BID SQ 08/08/17 21:00 08/15/17 09:02 (NS Flush) 2 ml BID IV FLUSH 08/10/17 21:00 08/14/17 21:00 (NS Flush) 2 ml UNSCH PRN IV FLUSH 08/10/17 12:45 (Proscar) 5 mg DAILY PO 08/11/17 16:00 08/15/17 09:02 (Aspirin Chew) 81 mg DAILY PO 08/12/17 09:00 08/15/17 09:02 Fluconazole/ Sodium Chloride 200 ml @ 100 mls/hr Q24H IV 08/11/17 20:00 08/15/17 20:59 (Lipitor) 40 mg DAILY PO 08/12/17 19:00 08/15/17 09:02 A/P Problem List: (1) Sepsis ICD Code: A41.9 - Sepsis, unspecified organism Status: Acute (2) Osteomyelitis ICD Code: M86.9 - Osteomyelitis, unspecified (3) Hyperkalemia ICD Code: E87.5 - Hyperkalemia (4) HTN (hypertension) ICD Code: I10 - Essential (primary) hypertension (5) DM (diabetes mellitus) ICD Code: E11.9 - Type 2 diabetes mellitus without complications (6) CVA (cerebral vascular accident) ICD Code: I63.9 - Cerebral infarction, unspecified Status: Acute Assessment and Plan 1. Sepsis: HR 110, WBC 25.4, Source-Left Heel Ulcer. S/p Blood Cultures, Vanco/Zosyn in ER. Follow up cultures, continue IV Abx. 08/12 Blood cultures growing Streptococcus Bovis. ID following. The patient is currently on fluconazole IV and Rocephin IV. Continue antibiotics as per ID recommendations. Patient for AUSTEN on Monday. Appreciate cardiology recommendations and efforts. AUSTEN negative. Follow-up ID recommendations. Antibiotics as per ID. 2. Osteomyelitis: Left Foot. X-ray w/ erosive changes along posterior calcaneus with possible avulsion injury, MRI Foot with large soft tissue ulcer heal and broad area of osteomyelitis of posterior calcaneus with rupture of Achilles tendon, images reviewed . S/p IV Abx as above, will continue. 08/13 the patient is status post left partial calcaneal resection. Patient to begin wound VAC on 08/14/17. As per podiatry plan is to discharge early next week once okay to DC with wound VAC and PICC line. 3. Hyperkalemia: Mild. K+ 5.5. S/p Insulin/D50 in ER, will repeat in am. Now resolved. Continue to monitor BMP. 4. HTN: Blood pressure much stable. Continue amlodipine 5 mg by mouth daily. Clonidine when necessary, 5. DM: Blood sugar stable. Continue Sliding scale w/ Accu-Cheks. Continue Levemir 30 units subcutaneous twice a day. 6. Left parietal/occipital stroke. Continue aspirin and Plavix. 08/15 [address] a [address] Ct brain given slurred speech. 7. Anemia. Low MCV. I will check iron studies and stool guaiac. Hemoglobin seems to be stable. 08/14 iron studies concurrent with iron deficiency anemia. I will start IV iron dextran, stool Hemoccult ordered and pending. GI has been consulted. The patient felt he could not prep for a colonoscopy. Will call when patient is ready. 10/3 Possible allergic reaction to IV iron infusion. Check CBC. to onitor hemoglobin. 8. Thrombocytosis. Likely reactive to iron deficiency anemia. Continue to monitor platelets. 9. Hyperlipidemia: Lipid profile shows an elevated triglycerides of 182, cholesterol 173, LDL cholesterol 110. I will start the patient on Lipitor. 6. DVT Prophylaxis: Heparin sq 7. Social work for d/c planning as needed Discharge Planning Continue to monitor in the medical floor. Problem Qualifiers (1) Sepsis: Qualified Codes: A41.9 - Sepsis, unspecified organism Boo Zamudio MD Aug 16, 2017 00:33
[2017-08-16] MEDS: MORPHINE SULFATE 4 MG/ML INJ IV PUSH PRN ×2 (01:38→06:21)
[2017-08-16] MEDS: hydrALAZINE HCL 25 MG TAB PO SCH ×3 (06:20→21:53)
[2017-08-16] MEDS: INSULIN ASPART SUPPLEMENTAL SCALE SQ SCH ×4 (08:14→21:56)
[2017-08-16] MEDS: INSULIN DETEMIR 100 UNITS/ML VIAL SQ SCH ×2 (09:47→21:55)
[2017-08-16] MEDS: HEPARIN SODIUM - SQ 10,000 UNITS/ML VIAL SQ SCH ×2 (10:42→21:55)
[2017-08-16] MEDS: MAGNESIUM HYDROXIDE SUSP 30 ML CUP PO PRN (10:42)
[2017-08-16] MEDS: amLODIPine BESYLATE 5 MG TAB PO SCH ×2 (10:43→21:53)
[2017-08-16] MEDS: GABAPENTIN 300 MG CAP PO SCH ×4 (10:43→21:53)
[2017-08-16] MEDS: SODIUM CHLORIDE 0.9% FLUSH 5 ML FLUSH IV FLUSH SCH ×2 (10:43→21:00)
[2017-08-16] MEDS: DOCUSATE SODIUM 50 MG/SENNA 8.6 MG TAB PO SCH ×2 (10:43→21:53)
[2017-08-16] MEDS: FINASTERIDE 5 MG TAB PO SCH (10:43)
[2017-08-16] MEDS: ASPIRIN 81 MG CHEW TAB PO SCH (10:43)
[2017-08-16] MEDS: ATORVASTATIN 40 MG TAB PO SCH (10:43)
[2017-08-16] MEDS: cefTRIAXone INJ 2,000 MG in SODIUM CHLORIDE 0.9% INJ 100 ML IV SCH (12:54)
--- NOTE | 2017-08-16 14:07 | PD.CARD.PN ---
Subjective Subjective Remarks Slurred speech overnight, CT head showing no changes Feels relatively normal, but feels that speech is still slurred Objective Medications Current Medications Medications (Trade) Dose Ordered Sig/Sumanth Route Start Time Stop Time Status Last Admin (D50w (Syr) Inj) 50 ml UNSCH PRN IV PUSH 08/03/17 19:30 (Glucagon Inj) 1 mg UNSCH PRN OTHER 08/03/17 19:30 (NovoLOG SUPPLEMENTAL SCALE) 1 ACHS SLIDING SCALE SQ 08/03/17 21:00 08/16/17 12:54 Sodium Chloride 1,000 ml @ 100 mls/hr Q10H IV 08/03/17 19:30 08/15/17 21:15 (Zofran Inj) 4 mg Q6H PRN IVP 08/03/17 19:30 08/03/17 21:08 (Heparin Inj) 5,000 units Q12H SQ 08/04/17 09:00 08/16/17 10:42 (Tylenol) 650 mg Q6H PRN PO 08/03/17 19:30 ([place] 5-325 Mg) 1 tab Q4H PRN PO 08/03/17 19:30 08/11/17 00:03 (Morphine Inj) 2 mg Q3H PRN IV PUSH 08/03/17 19:30 08/16/17 06:21 (Laanna-Colace) 1 tab BID PO 08/03/17 21:00 08/16/17 10:43 (Milk Of Magnesia Liq) 30 ml Q12H PRN PO 08/03/17 19:30 08/16/17 10:42 (Senokot) 17.2 mg Q12H PRN PO 08/03/17 19:30 (Dulcolax Supp) 10 mg DAILY PRN RECTAL 08/03/17 19:30 (Lactulose Liq) 30 ml DAILY PRN PO 08/03/17 19:30 08/16/17 12:53 (Plavix) 75 mg DAILY@1600 PO 08/04/17 16:00 08/15/17 18:28 (Neurontin) 600 mg QID PO 08/03/17 21:00 08/16/17 12:53 (Protonix) 40 mg DAILY@1600 PO 08/04/17 16:00 08/15/17 18:27 (Norvasc) 5 mg BID PO 08/05/17 14:15 08/16/17 10:43 (Catapres) 0.1 mg Q4H PRN PO 08/05/17 14:15 (Apresoline) 25 mg Q8HR PO 08/05/17 22:00 08/16/17 12:53 Ceftriaxone Sodium 2000 mg/ Sodium Chloride 100 ml @ 200 mls/hr Q24H IV 08/07/17 14:00 09/18/17 13:59 08/16/17 12:54 (Levemir Inj) 30 units BID SQ 08/08/17 21:00 08/16/17 09:47 (NS Flush) 2 ml BID IV FLUSH 08/10/17 21:00 08/16/17 10:43 (NS Flush) 2 ml UNSCH PRN IV FLUSH 08/10/17 12:45 (Proscar) 5 mg DAILY PO 08/11/17 16:00 08/16/17 10:43 (Aspirin Chew) 81 mg DAILY PO 08/12/17 09:00 08/16/17 10:43 Fluconazole/ Sodium Chloride 200 ml @ 100 mls/hr Q24H IV 08/11/17 20:00 08/15/17 20:59 (Lipitor) 40 mg DAILY PO 08/12/17 19:00 08/16/17 10:43 Vital Signs / I&O Vital Signs Date Time Temp Pulse Resp B/P (MAP) Pulse Ox O2 Delivery O2 Flow Rate FiO2 08/16/17 12:06 97.5 98 18 125/67 (86) 94 08/16/17 11:44 95 08/16/17 08:39 92 08/16/17 08:10 98.7 95 17 135/60 (85) 92 08/16/17 05:00 98.0 96 18 127/56 (79) 94 08/16/17 00:24 98.7 97 19 126/71 (89) 98 08/15/17 21:00 97.9 98 19 135/60 (85) 96 08/15/17 19:00 95 08/15/17 17:59 96 21 08/15/17 15:52 97.6 105 20 103/58 (73) 96 I/O 08/15/17 08/15/17 08/15/17 08/16/17 08/16/17 10/4/17 07:00 15:00 23:00 07:00 15:00 23:00 Intake Total 1797 ml 2100 ml 1500 ml Output Total 1050 ml 1650 ml 800 ml 2000 ml Balance -1050 ml 147 ml 1300 ml -500 ml Intake Oral 720 ml 2100 ml 1500 ml IV Total 1077 ml Output Urine Total 1050 ml 1650 ml 800 ml 2000 ml # Bowel Movements 0 0 0 Physical Exam GENERAL: NAD, AAOx3 SKIN: Warm and dry. HEAD: Atraumatic. Normocephalic. EYES: Pupils equal and round. No scleral icterus. No injection or drainage. ENT: No nasal bleeding or discharge. Mucous membranes pink and moist. NECK: Trachea midline. No JVD. CARDIOVASCULAR: Regular rate and rhythm. RESPIRATORY: No accessory muscle use. Clear to auscultation bilaterally GASTROINTESTINAL: Abdomen soft, non-tender, nondistended. Hepatic and splenic margins not palpable. MUSCULOSKELETAL: Extremities without clubbing, cyanosis, or edema. No obvious deformities. NEUROLOGICAL: Awake and alert. No obvious cranial nerve deficits. Motor grossly within normal limits. Four out of 5 muscle strength in the arms and legs. Normal speech. PSYCHIATRIC: Appropriate mood and affect; insight and judgment normal. Laboratory Laboratory Tests Test 08/15/17 17:45 White Blood Count 22.2 TH/MM3 Red Blood Count 3.55 MIL/MM3 Hemoglobin 8.2 GM/DL Hematocrit 26.4 % Mean Corpuscular Volume 74.2 FL Mean Corpuscular Hemoglobin 23.0 PG Mean Corpuscular Hemoglobin Concent 31.0 % Red Cell Distribution Width 19.2 % Platelet Count 822 TH/MM3 Mean Platelet Volume 6.8 FL Neutrophils (%) (Auto) 74.2 % Lymphocytes (%) (Auto) 16.6 % Monocytes (%) (Auto) 6.0 % Eosinophils (%) (Auto) 2.5 % Basophils (%) (Auto) 0.7 % Neutrophils # (Auto) 16.5 TH/MM3 Lymphocytes # (Auto) 3.7 TH/MM3 Monocytes # (Auto) 1.3 TH/MM3 Eosinophils # (Auto) 0.5 TH/MM3 Basophils # (Auto) 0.1 TH/MM3 CBC Comment DIFF FINAL Differential Comment Assessment and Plan Problem List: (1) Osteomyelitis of toe of left foot ICD Codes: M86.9 - Osteomyelitis of toe of left foot Status: Acute (2) PAD (peripheral artery disease) ICD Codes: I73.9 - Peripheral vascular disease, unspecified (3) CVA (cerebral vascular accident) ICD Codes: I63.9 - Cerebral infarction, unspecified Status: Acute (4) DM (diabetes mellitus) ICD Codes: E11.9 - Type 2 diabetes mellitus without complications (5) HTN (hypertension) ICD Codes: I10 - Essential (primary) hypertension (6) Hyperkalemia ICD Codes: E87.5 - Hyperkalemia (7) Sepsis ICD Codes: A41.9 - Sepsis, unspecified organism Status: Acute Assessment and Plan 1) CVA Con't ASA/Plavix per neuro No Atrial Fibrillation noted on telemetry, con't to follow 2) AUSTEN showing no endocarditis or cardioembolic cause of CVA 3) PAD Left lower extremity recanalized by balloon angioplasty and orbital atherectomy Left ICA occlusion, most likely chronic 4) Severe mitral regurgitation Con't to follow, not a candidate for possible surgical intervention at this time 5) Bacteremia Per ID Needs C-scope at some point to rule out colon cancer Problem Qualifiers (1) Sepsis: Qualified Codes: A41.9 - Sepsis, unspecified organism Marty Fine DO Aug 16, 2017 14:07
--- NOTE | 2017-08-16 15:03 | HHI.PR ---
Addendum to Inpatient Note Additional Information pt seen around 1330 full note to follow co constipatio, abs distention on exam L heel wound deep, but clean no necrotic tissue afebrile WBC still 22 K AUSTEN with MR, no veg cont current abx Renee Garcia MD Aug 16, 2017 15:03
[2017-08-16] MEDS ORDERED: MAGNESIUM CITRATE SOLN 300 ML BTL PO ONE (17:00)
[2017-08-16] MEDS ORDERED: diphenhydrAMINE HCL 25 MG CAP PO PRN (17:30)
[2017-08-16] MEDS ORDERED: SODIUM CHLOR 0.9% 250 ML INJ 250 ML IV ONE (17:30)
[2017-08-16] MEDS ORDERED: ACETAMINOPHEN 325 MG TAB PO PRN (17:30)
--- NOTE | 2017-08-16 17:32 | HHI.PR ---
Subjective Remarks Patient's heart rate in the 90's Patient feels very tired denies cp/sob denies any new arm or leg weakness feels weak Objective Vitals Vital Signs Date Time Temp Pulse Resp B/P (MAP) Pulse Ox O2 Delivery O2 Flow Rate FiO2 08/16/17 16:09 97.6 96 18 125/57 (79) 96 08/16/17 12:06 97.5 98 18 125/67 (86) 94 08/16/17 11:44 95 08/16/17 08:39 92 08/16/17 08:10 98.7 95 17 135/60 (85) 92 08/16/17 05:00 98.0 96 18 127/56 (79) 94 08/16/17 00:24 98.7 97 19 126/71 (89) 98 08/15/17 21:00 97.9 98 19 135/60 (85) 96 08/15/17 19:00 95 08/15/17 17:59 96 21 I/O 08/15/17 08/15/17 08/15/17 08/16/17 08/16/17 08/16/17 07:00 15:00 23:00 07:00 15:00 23:00 Intake Total 1797 ml 2100 ml 1500 ml 340 ml Output Total 1050 ml 1650 ml 800 ml 2000 ml 1300 ml Balance -1050 ml 147 ml 1300 ml -500 ml -960 ml Intake Oral 720 ml 2100 ml 1500 ml 340 ml IV Total 1077 ml Output Urine Total 1050 ml 1650 ml 800 ml 2000 ml 1300 ml # Bowel Movements 0 0 0 Result Diagram: 08/15/17 1745 08/13/17 0756 Imaging Last Impressions Head CT 08/15/17 0000 Signed Impressions: Service Date/Time: Tuesday, August 15, 2017 19:02 - CONCLUSION: No new acute findings Jsoe Francisco Colon MD Head Magnetic Resonance Angiography 08/10/17 0000 Signed Impressions: Service Date/Time: July 18:07 - CONCLUSION: Occluded left internal carotid artery. Based on today's ultrasound, this appears to be at the origin and is probably chronic. Associated slightly decreased filling of the left anterior and middle cerebral artery distributions relative to the right. No acute abnormality seen of the intracranial arteries. Jose Francisco Rodriguez MD Carotid Artery Ultrasound 08/10/17 0000 Signed Impressions: Service Date/Time: July 12:29 - CONCLUSION: 1. Apparent occlusive non-calcified plaque and thrombus in the left internal carotid origin. 2. Mild, less than 50%%, stenosis of the right internal carotid artery secondary to calcified plaque extending from the carotid bulb. 3. Antegrade vertebral artery flow. Eder Biggs MD Brain MRI 08/10/17 0000 Signed Impressions: Service Date/Time: July 18:07 - CONCLUSION: 1. Several small subacute left white matter subacute infarcts as above. No associated mass effect, bleed or midline shift. 2. Left parietal-occipital infarct appears old by MRI. Jose Francisco Rodriguez MD Foot X-Ray 08/09/17 0000 Signed Impressions: Service Date/Time: Wednesday, August 09, 2017 18:57 - CONCLUSION: Large portion of the posterior calcaneus has been surgically resected. Remaining bone has a grossly normal radiographic appearance. Jose Francisco Rodriguez MD Lower Extremity Ultrasound 08/05/17 0000 Signed Impressions: Service Date/Time: Saturday, August 05, 2017 18:13 - CONCLUSION: Negative exam with no evidence of deep venous thrombosis. Stone Sexton MD Aorta w/Runoff CTA 08/04/17 0000 Signed Impressions: Service Date/Time: Friday, August 04, 2017 19:29 - CONCLUSION: 1. Severe atherosclerotic disease. There is a focal short segment high-grade stenosis of the distal left superficial femoral artery. This stenosic segment measures approximately 1 cm in length and represents a change from the prior study. Remaining left lower extremity arterial vessels demonstrate no significant change from the prior exam. 2. Moderate narrowing of the proximal superior mesenteric artery secondary to noncalcified plaque. This finding is stable. 3. Small bilateral pleural effusions with associated compressive atelectasis. Jose Francisco Rogers MD Foot MRI 08/03/17 0000 Signed Impressions: Service Date/Time: July 19:20 - CONCLUSION: Large soft tissue ulcer of the heel and with a broad area of osteomyelitis of the posterior calcaneus. The Achilles tendon is ruptured at its insertion. No drainable abscess. Jose Francisco Rodriguez MD Objective Remarks General: lying in bed, nad Respiratory: Lungs CTA, Non-labored respirations, BS equal, Coarse breath sounds Gastrointestinal: Positive Bowel Sounds, Non-Distended, Non-Tender Cardiovascular: Normal rate, Regular Rhythm Skin: very pale skin Musculoskeletal: Deformity (none) Psychiatric: Cooperative, Appropriate mood & affect Orientation: oriented to Self, oriented to Place, oriented to Time (with cues) , oriented to Situation Neurologic: Pupils (E RLA), EOM (intact with nystagmus), Facial Symmetry ( symmetric), Speech (clear with no word finding difficulties) Motor: Right Upper Extremity (4+/5), Left Upper Extremity (4+/5), Right Lower Extremity (4+/5), Left Lower Extremity (bandage in place and proximal strength is grossly intact) Procedures DATE OF SURGERY 08/08/2017 PREOPERATIVE DIAGNOSIS Diabetic foot wound left lower extremity. POSTOPERATIVE DIAGNOSIS Diabetic foot wound left lower extremity. PROCEDURE 1. Selective left lower extremity arteriogram. 2. Rechanneling of left superficial femoral artery with balloon angioplasty of the left SFA and above-knee popliteal artery with a 5-mm x 40-mm balloon and then I atherectomy SURGEON Dr. Herber Esquivel GRIFFIN HADDAD DPM DATE OF SURGERY: 08/09/2017 PREOPERATIVE DIAGNOSIS 1. Left heel gangrene, dry and stable. 2. Left heel osteomyelitis. 3. Left heel Achilles rupture. POSTOPERATIVE DIAGNOSIS 1. Left heel gangrene, dry and stable. 2. Left heel osteomyelitis. 3. Left heel Achilles rupture. PROCEDURE 1. Left heel partial calcanectomy. 2. Left ankle I&D. Medications and IVs Current Medications Medications (Trade) Dose Ordered Sig/Sumanth Route Start Time Stop Time Status Last Admin (D50w (Syr) Inj) 50 ml UNSCH PRN IV PUSH 08/03/17 19:30 (Glucagon Inj) 1 mg UNSCH PRN OTHER 08/03/17 19:30 (NovoLOG SUPPLEMENTAL SCALE) 1 ACHS SLIDING SCALE SQ 08/03/17 21:00 08/16/17 12:54 Sodium Chloride 1,000 ml @ 100 mls/hr Q10H IV 08/03/17 19:30 08/15/17 21:15 (Zofran Inj) 4 mg Q6H PRN IVP 08/03/17 19:30 08/03/17 21:08 (Heparin Inj) 5,000 units Q12H SQ 08/04/17 09:00 08/16/17 10:42 (Tylenol) 650 mg Q6H PRN PO 08/03/17 19:30 ([place] 5-325 Mg) 1 tab Q4H PRN PO 08/03/17 19:30 08/11/17 00:03 (Morphine Inj) 2 mg Q3H PRN IV PUSH 08/03/17 19:30 08/16/17 06:21 (Alanna-Colace) 1 tab BID PO 08/03/17 21:00 08/16/17 10:43 (Milk Of Magnesia Liq) 30 ml Q12H PRN PO 08/03/17 19:30 08/16/17 10:42 (Senokot) 17.2 mg Q12H PRN PO 08/03/17 19:30 (Dulcolax Supp) 10 mg DAILY PRN RECTAL 08/03/17 19:30 (Lactulose Liq) 30 ml DAILY PRN PO 08/03/17 19:30 08/16/17 12:53 (Plavix) 75 mg DAILY@1600 PO 08/04/17 16:00 08/15/17 18:28 (Neurontin) 600 mg QID PO 08/03/17 21:00 08/16/17 12:53 (Protonix) 40 mg DAILY@1600 PO 08/04/17 16:00 08/15/17 18:27 (Norvasc) 5 mg BID PO 08/05/17 14:15 08/16/17 10:43 (Catapres) 0.1 mg Q4H PRN PO 08/05/17 14:15 (Apresoline) 25 mg Q8HR PO 08/05/17 22:00 08/16/17 12:53 Ceftriaxone Sodium 2000 mg/ Sodium Chloride 100 ml @ 200 mls/hr Q24H IV 08/07/17 14:00 09/18/17 13:59 08/16/17 12:54 (Levemir Inj) 30 units BID SQ 08/08/17 21:00 08/16/17 09:47 (NS Flush) 2 ml BID IV FLUSH 08/10/17 21:00 08/16/17 10:43 (NS Flush) 2 ml UNSCH PRN IV FLUSH 08/10/17 12:45 (Proscar) 5 mg DAILY PO 08/11/17 16:00 08/16/17 10:43 (Aspirin Chew) 81 mg DAILY PO 08/12/17 09:00 08/16/17 10:43 Fluconazole/ Sodium Chloride 200 ml @ 100 mls/hr Q24H IV 08/11/17 20:00 08/15/17 20:59 (Lipitor) 40 mg DAILY PO 08/12/17 19:00 08/16/17 10:43 Sodium Chloride 250 ml @ 15 mls/hr ONCE ONCE IV 08/16/17 17:30 08/17/17 10:09 UNV (Tylenol) 650 mg Q4H PRN PO 08/16/17 17:30 UNV (Benadryl) 25 mg Q4H PRN PO 08/16/17 17:30 UNV (Lasix Inj) 20 mg ONCE ONCE IV PUSH 08/16/17 17:30 08/16/17 17:31 UNV Urinary Catheter: No Vascular Central Line Catheter: No A/P Problem List: (1) Sepsis ICD Code: A41.9 - Sepsis, unspecified organism Status: Acute (2) Osteomyelitis ICD Code: M86.9 - Osteomyelitis, unspecified (3) Hyperkalemia ICD Code: E87.5 - Hyperkalemia (4) HTN (hypertension) ICD Code: I10 - Essential (primary) hypertension (5) DM (diabetes mellitus) ICD Code: E11.9 - Type 2 diabetes mellitus without complications (6) CVA (cerebral vascular accident) ICD Code: I63.9 - Cerebral infarction, unspecified Status: Acute Assessment and Plan 1. Sepsis: Present admission, patient with a heart rate of 110, WBC 25.4 and source left heel ulcer. The patient was given IV vancomycin and Zosyn in the ER and blood cultures were obtained. The patient is growing Streptococcus Bovis. ID consulted. The patient currently on IV fluconazole and IV Rocephin. Patient is status post E which was negative. Continue antibiotics as per ID recommendations. 2. Osteomyelitis:Left Foot. X-ray w/ erosive changes along posterior calcaneus with possible avulsion injury, MRI Foot with large soft tissue ulcer heal and broad area of osteomyelitis of posterior calcaneus with rupture of Achilles tendon, images reviewed . S/p IV Abx as above, will continue. The patient is status post left partial calcaneal resection. Patient to begin wound VAC on 08/14/17. As per podiatry plan is to discharge early next week once okay to DC with wound VAC and PICC line. 3. Hyperkalemia: Mildly potassium 5.5. The patient is status post insulin and D50 in the ER. Hyperkalemia now resolved. Continue to monitor BMP. 4. Hypertension: Blood pressure seems to be stable. Continue amlodipine 5 mg by mouth daily. Patient on clonidine as needed for very elevated systolic blood pressure. 5. Left parietal/occipital stroke: Continue aspirin and Plavix. Patient with slurred speech on 08/14 and 08/15. Repeat CT scan of the brain on 08/15 did not show any acute disease. 6. Iron deficiency anemia. Iron studies concurrent with iron deficiency anemia , stool Hemoccult is negative. Patient had been seen by GI some admission and offered a colonoscopy. However the patient stated he did not feel ready at the time to undergo the colonic prep. The patient is now willing to have the colonoscopy, consulted GI. The patient possibly developed an allergic reaction to IV iron. I will place it as an allergy. 08/16 The patient is very pale looking and extremely tired. I believe the patient has symptoms due to his anemia. I will transfuse 1 unit of packed red blood cells today. 7. Thrombocytosis: Likely reactive to iron deficiency anemia. Continue to monitor CBC and platelets. 8. Hyperlipidemia: Lipid profile showed an elevated triglycerides of 182, cholesterol 183, LDL cholesterol 110. Patient started on Lipitor. There are no reported side effects. 9. GI prophylaxis: I will add a PPI. 10. DVT prophylaxis: Continue SCDs, I will chemoprophylaxis given symptomatic anemia. Discharge Planning Continue to monitor in the medical floor. Problem Qualifiers (1) Sepsis: Qualified Codes: A41.9 - Sepsis, unspecified organism Boo Zamudio MD Aug 16, 2017 17:32
[2017-08-16] MEDS: PANTOPRAZOLE SOD 40 MG DELAYED RELEASE TAB PO SCH (18:05)
[2017-08-16] MEDS: CLOPIDOGREL 75 MG TAB PO SCH (18:05)
--- NOTE | 2017-08-16 18:14 | HHI.PR ---
Subjective Subjective Comments Patient resting comfortably in bed. Nasal cannula oxygen in place Allergies: Coded Allergies: *MDRO Multi-Drug Resistant Organism (Verified Adverse Reaction, Unknown, ) MRSA (arm wound) - 01/2016 MRSA (blood, urine, wound) - 06/2013 Review of Systems All other ROS: ROS reviewed as documented in chart Exam I&O / VS 08/16/17 08/16/17 08/17/17 15:00 23:00 07:00 Intake Total 340 ml Output Total 1300 ml Balance -960 ml Intake Oral 340 ml Output Urine Total 1300 ml Vital Signs Date Time Temp Pulse Resp B/P (MAP) Pulse Ox O2 Delivery O2 Flow Rate FiO2 08/16/17 16:09 97.6 96 18 125/57 (79) 96 08/16/17 12:06 97.5 98 18 125/67 (86) 94 08/16/17 11:44 95 08/16/17 08:39 92 08/16/17 08:10 98.7 95 17 135/60 (85) 92 08/16/17 05:00 98.0 96 18 127/56 (79) 94 08/16/17 00:24 98.7 97 19 126/71 (89) 98 08/15/17 21:00 97.9 98 19 135/60 (85) 96 08/15/17 19:00 95 General: No acute distress Gastrointestinal: Positive Bowel Sounds Cardiovascular: Normal rate Psychiatric: Cooperative Orientation: oriented to Self, oriented to Place, oriented to Time (with cues) , oriented to Situation Neurologic: Other (this toes bilaterally) Motor: Right Upper Extremity (mines inspector 5/5), Left Upper Extremity (mines inspector 5/5) Objective Micro and Labs Date/Time Source Procedure Growth Status 08/06/17 11:20 Blood Peripheral Aerobic Blood Culture - Final NO GROWTH IN 5 DAYS Complete 08/06/17 11:20 Blood Peripheral Anaerobic Blood Culture - Final NO GROWTH IN 5 DAYS Complete 08/15/17 13:35 Stool Stool Stool Occult Blood (ABHISHEK) - Final HEMOCCULT NEGATIVE Complete 08/11/17 00:45 Urine Catheterized Urine Urine Culture - Final NO GROWTH IN 48 HOURS. Complete 08/09/17 18:57 Wound Heel Fungal Smear - Final NO FUNGAL ELEMENTS SEEN. Resulted 08/09/17 18:57 Fungal Culture - Preliminary Crystal Tropicalis Resulted Assessment and Plan Diagnosis: (1) CVA (cerebral vascular accident) ICD Codes: I63.9 - Cerebral infarction, unspecified Status: Acute (2) Diabetic ulcer of heel ICD Codes: E11.621 - Type 2 diabetes mellitus with foot ulcer; L97.409 - Non- pressure chronic ulcer of unspecified heel and midfoot with unspecified severity Status: Acute Qualifiers: Diabetes mellitus type: other specified (including CAMILO) Laterality: left Non-pressure ulcer stage: unspecified non-pressure ulcer stage Qualified Codes: E13.621 - Other specified diabetes mellitus with foot ulcer; L97.429 - Non-pressure chronic ulcer of left heel and midfoot with unspecified severity Assessment 1. Left parietal/occipital stroke 2. Left heel ulceration status post left heel partial calcanectomy and ankle I and D: Now nonweightbearing. ID following 3. Impaired mobility and ADLs 4. Hypertension 5. Diabetes mellitus 6. Peripheral neuropathy 7. Peripheral vascular disease Plan 1. Physical therapy is beginning to mobilize the patient is max assist for transfers and unable to progress to gait. Currently nonweightbearing left lower extremity 2. Occupational therapy providing range of motion and has been limited in ability to address ADLs. 3. Case management is addressing discharge planning for ongoing inpatient rehabilitation at subacute/skilled level. 4. Will continue to follow while hospitalized and at discharge as appropriate Izabella Riddle MD Aug 16, 2017 18:14
[2017-08-16] MEDS ORDERED: FUROSEMIDE 20 MG/2 ML VIAL IV PUSH ONE (18:15)
--- NOTE | 2017-08-16 18:44 | MB ---
cc: MACIE GRIDER MD,LENCHO Loza MD DATE OF CONSULTATION: 08/16/2017 REASON FOR CONSULTATION: Iron deficiency anemia. REFERRING PHYSICIAN: Dr. Macie Arias DEBRA De Anda is a pleasant 52 year-old male who was admitted 08/03/17 with a nonhealing left heel ulcer and sepsis. He was diagnosed with gangrene and osteomyelitis of the left heel. He also has a history of peripheral vascular disease and on August 08 he underwent a selective left lower extremity arteriogram with re-channeling of the left superficial femoral artery with balloon angioplasty and CSI arthrectomy. His initial blood cultures grew strep bovis which has been associated with colon cancer. Dr. Agarwal was consulted, however, the patient was not in condition for colonoscopy at that time. The patient also started to developed right-sided weakness and slurred speech and was diagnosed with a left hemispheric nonhemorrhagic stroke and seen by neurology. He underwent left heel partial calcanectomy and left ankle I&D on August 09. He also underwent transesophageal echocardiography to rule out endocarditis and this was reportedly negative. The patient has been on antibiotics. He was also started on aspirin and Plavix because of his recent stroke. He is also on subQ heparin twice a day. The patient is alert and oriented but does slur his speech a little bit. He does have a little bit of expressive aphasia forgetting words at times. He denies any significant abdominal pain but states he has been constipated. He has had colonoscopy by Dr. Agarwal and I recall the last one was in 2013. He does have a history of polyps and a history of GERD for which he takes a proton pump inhibitor. 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 The patient's hemoglobin has remained stable around 8 grams. He does have a low MCV of 74 and a low iron saturation of 11.4%. His ferritin was 206. His alk phos has been persistently elevated around 230, transaminases and bilirubin are normal. No abdominal imaging this admission. He states he is ready to do the bowel prep for colonoscopy. CURRENT MEDICATIONS: Listed in the chart. 1. Aspirin 2. Plavix 3. Insulin 4. Ceftriaxone 5. Various blood pressure medications. 6. Protonix daily. 7. SubQ heparin. As far as pertinent symptoms he has the constipation and was having some abdominal discomfort earlier. He states he did have a small bowel movement earlier this morning but does not feel that it was adequate. He has some dysphagia to solid food. His heartburn has been under good control. No nausea or vomiting. PHYSICAL EXAMINATION: Reveals a chronically ill-appearing male in no acute distress. He appears older than stated age. VITAL SIGNS: Blood pressure is 125/57, pulse 96, respiratory rate 18, unlabored. Temperature 97.6. GENERAL: He is edentulous. LUNGS: Grossly clear. HEART: Heart sounds are regular. No appreciable murmur. ABDOMEN: Soft, nontender. No palpable masses. RECTAL: Deferred. He is wearing sequential JOSEPHINE hose and is left heel is bandaged. He was alert and oriented but did have difficulty recalling certain words. IMPRESSION: 1. Iron deficiency anemia. 2. Constipation 3. History of colon polyps. 4. History of GERD. 5. History of dysphagia. 6. History of cricopharyngeal achalasia. 7. Strep bovis bacteremia associated with left heel infection. 8. Recent stroke. PLAN: I agree with the indications for a GI evaluation with EGD and colonoscopy, esophageal dilation could be done at the same time, however, the issue is his antiplatelet medication. I would be reluctant to stop his Plavix given his recent stroke. The procedures could be done to visualize the GI tract but therapeutic intervention may be limited if he has to remain on some of these blood thinners. He also still has a high white blood cell count and it may be prudent to defer endoscopic evaluation a while longer. Will discuss this with his medical team and plan accordingly. In the meantime, will give him some laxatives to try and improve his constipation. MD GARRETT Fairbanks/DOMENICA /4:34 PM /6:13 PM GREGORY
[2017-08-16] MEDS: SODIUM CHLOR 0.9% 1000 ML INJ 1,000 ML IV SCH (19:35)
[2017-08-16] MEDS: ACETAMINOPHEN/HYDROcodone 325 MG/5 MG TAB PO PRN (21:53)
[2017-08-16] MEDS: FLUCONAZOLE 400 MG PREMIX BAG 200 ML IV SCH (21:54)
--- NOTE | 2017-08-16 23:51 | HHI.IDPN ---
Subjective Subjective Remarks delayed entry pt seen around 1330 co constipatio, abs distention afebrile WBC still 22 K AUSTEN with MR, no veg GI rec'd colonoscopy to w/u anemia and Strep bovis bactermeia, ut pt has a recent stroke and is on anticoagulation Antibiotics fluconazole CFTX Allergies: Coded Allergies: *MDRO Multi-Drug Resistant Organism (Verified Adverse Reaction, Unknown, ) MRSA (arm wound) - 01/2016 MRSA (blood, urine, wound) - 06/2013 Objective . Vital Signs Date Time Temp Pulse Resp B/P (MAP) Pulse Ox O2 Delivery O2 Flow Rate FiO2 08/16/17 19:30 98.0 104 18 129/69 (89) 94 08/16/17 18:09 96 21 08/16/17 16:09 97.6 96 18 125/57 (79) 96 08/16/17 12:06 97.5 98 18 125/67 (86) 94 08/16/17 11:44 95 08/16/17 08:39 92 08/16/17 08:10 98.7 95 17 135/60 (85) 92 08/16/17 05:00 98.0 96 18 127/56 (79) 94 08/16/17 00:24 98.7 97 19 126/71 (89) 98 08/16/17 08/16/17 08/17/17 15:00 23:00 07:00 Intake Total 2770 ml Output Total 1300 ml Balance 1470 ml Intake Oral 340 ml IV Total 2430 ml Output Urine Total 1300 ml . Laboratory Tests Test 08/15/17 17:45 White Blood Count 22.2 TH/MM3 Red Blood Count 3.55 MIL/MM3 Hemoglobin 8.2 GM/DL Hematocrit 26.4 % Mean Corpuscular Volume 74.2 FL Mean Corpuscular Hemoglobin 23.0 PG Mean Corpuscular Hemoglobin Concent 31.0 % Red Cell Distribution Width 19.2 % Platelet Count 822 TH/MM3 Mean Platelet Volume 6.8 FL Neutrophils (%) (Auto) 74.2 % Lymphocytes (%) (Auto) 16.6 % Monocytes (%) (Auto) 6.0 % Eosinophils (%) (Auto) 2.5 % Basophils (%) (Auto) 0.7 % Neutrophils # (Auto) 16.5 TH/MM3 Lymphocytes # (Auto) 3.7 TH/MM3 Monocytes # (Auto) 1.3 TH/MM3 Eosinophils # (Auto) 0.5 TH/MM3 Basophils # (Auto) 0.1 TH/MM3 CBC Comment DIFF FINAL Differential Comment Microbiology Date/Time Source Procedure Growth Status 08/15/17 13:35 Stool Stool Stool Occult Blood (ABHISHEK) - Final HEMOCCULT NEGATIVE Complete Imaging Last Impressions Head CT 08/15/17 0000 Signed Impressions: Service Date/Time: Tuesday, August 15, 2017 19:02 - CONCLUSION: No new acute findings Jose Francisco Colon MD Head Magnetic Resonance Angiography 08/10/17 0000 Signed Impressions: Service Date/Time: July 18:07 - CONCLUSION: Occluded left internal carotid artery. Based on today's ultrasound, this appears to be at the origin and is probably chronic. Associated slightly decreased filling of the left anterior and middle cerebral artery distributions relative to the right. No acute abnormality seen of the intracranial arteries. Jose Francisco Rodriguez MD Carotid Artery Ultrasound 08/10/17 0000 Signed Impressions: Service Date/Time: July 12:29 - CONCLUSION: 1. Apparent occlusive non-calcified plaque and thrombus in the left internal carotid origin. 2. Mild, less than 50%%, stenosis of the right internal carotid artery secondary to calcified plaque extending from the carotid bulb. 3. Antegrade vertebral artery flow. Eder Biggs MD Brain MRI 08/10/17 0000 Signed Impressions: Service Date/Time: July 18:07 - CONCLUSION: 1. Several small subacute left white matter subacute infarcts as above. No associated mass effect, bleed or midline shift. 2. Left parietal-occipital infarct appears old by MRI. Jose Francisco Rodriguez MD Foot X-Ray 08/09/17 0000 Signed Impressions: Service Date/Time: Wednesday, August 09, 2017 18:57 - CONCLUSION: Large portion of the posterior calcaneus has been surgically resected. Remaining bone has a grossly normal radiographic appearance. Jose Francisco Rodriguez MD Lower Extremity Ultrasound 08/05/17 0000 Signed Impressions: Service Date/Time: Saturday, August 05, 2017 18:13 - CONCLUSION: Negative exam with no evidence of deep venous thrombosis. Stone Sexton MD Aorta w/Runoff CTA 08/04/17 0000 Signed Impressions: Service Date/Time: Friday, August 04, 2017 19:29 - CONCLUSION: 1. Severe atherosclerotic disease. There is a focal short segment high-grade stenosis of the distal left superficial femoral artery. This stenosic segment measures approximately 1 cm in length and represents a change from the prior study. Remaining left lower extremity arterial vessels demonstrate no significant change from the prior exam. 2. Moderate narrowing of the proximal superior mesenteric artery secondary to noncalcified plaque. This finding is stable. 3. Small bilateral pleural effusions with associated compressive atelectasis. Jose Francisco Rogers MD Foot MRI 08/03/17 0000 Signed Impressions: Service Date/Time: July 19:20 - CONCLUSION: Large soft tissue ulcer of the heel and with a broad area of osteomyelitis of the posterior calcaneus. The Achilles tendon is ruptured at its insertion. No drainable abscess. Jose Francisco Rodriguez MD Physical Exam CONSTITUTIONAL/GENERAL: This is an adequately nourished patient, in no apparent distress. TUBES/LINES/DRAINS: SKIN: No jaundice, rashes, or lesions. HEENT: PERRL EOMI no facial weakness Toungue in midline CARDIOVASCULAR: Regular rate and rhythm without murmurs, gallops, or rubs. RESPIRATORY/CHEST: Symmetric, unlabored respirations. Clear to auscultation. Breath sounds equal bilaterally. No wheezes, rales, or rhonchi. GASTROINTESTINAL: Abdomen soft, mildly to moderately tender,+ distended. No hepato-splenomegaly, or palpable masses. No guarding. Bowel sounds present. MUSCULOSKELETAL: Extremities without clubbing, cyanosis, or edema. L heel wound deep, but clean no necrotic tissue + moderate serosang drainage NEUROLOGICAL: Awake and alert. Motor and sensory grossly within normal limits. Follows commands. Clear speech Moves all extremities. PSYCHIATRIC: No obvious anxiety/depression. no apparent hallucinations or other psychotic thought process. Assessment & Plan Remarks DFI, dry gangrene L heel Strep bovis and cand tropicalis in multiple clx sp part calcanectomy COnfirmed underlying vascular insufficiency sp PCI HIgh grade strep bovis bactermeia - no e/o endocarditis on AUSTEN - r colonoscopy planned, elective, possinbly p d/c L hemischere strokes, occluded L carotid cont CFTX cont fluconazole po dw Renee Paul MD Aug 16, 2017 23:51
[2017-08-17] VITALS (11 sets, daily range): BP systolic 118–152; BP diastolic 58–69; PULSE 78–98; RESP 18; TEMP 96.2–98.7; O2SAT 91–96
[2017-08-17] MEDS: SODIUM CHLOR 0.9% 1000 ML INJ 1,000 ML IV SCH ×3 (04:14→23:30)
[2017-08-17] MEDS: hydrALAZINE HCL 25 MG TAB PO SCH ×3 (06:21→21:24)
[2017-08-17] MEDS: INSULIN ASPART SUPPLEMENTAL SCALE SQ SCH ×4 (08:00→21:00)
--- NOTE | 2017-08-17 08:45 | HHI.GIFU ---
GI Follow-up Note Consult Follow-up Subjective: Patient laying in bed comfortably, no new complaints and states he had several good BMs. Eating ok with no nausea. Objective: PHYSICAL EXAMINATION: Vitals signs stable ABDOMEN: Soft, nondistended, nontender CUSTOMER EXPERIENCE STRATEGIST: No change. Available Data (labs, X- Rays, Procedues) : Stool hemoccult was negative. ASSESSMENT/PLAN: 1. Iron deficiency anemia-stools currently heme neg. Needs EGD w/ esophageal dilation and colonoscopy but no urgency and need direction regarding the plavix and heparin. 2. Constipation-improved. It was a pleasure seeing Adilson Lehman. Thank you for this consult. Entered by: Manuel Estrada MD Aug 17, 2017 08:45
[2017-08-17] MEDS: SODIUM CHLORIDE 0.9% FLUSH 5 ML FLUSH IV FLUSH SCH ×2 (09:00→21:00)
[2017-08-17] MEDS: INSULIN DETEMIR 100 UNITS/ML VIAL SQ SCH ×2 (09:00→21:23)
[2017-08-17] MEDS: DOCUSATE SODIUM 50 MG/SENNA 8.6 MG TAB PO SCH ×2 (09:00→21:00)
[2017-08-17 09:04] LABS: AUTOMATED NEUTROPHIL # 14.4 TH/MM3 (1.8-7.7); BASOPHIL # 0.2 TH/MM3 (0-0.2); BASOPHIL % 1.2 % (0.0-2.0); EOSINOPHIL # 0.6 TH/MM3 (0-0.4); EOSINOPHIL % 3.2 % (0.0-4.0); HEMATOCRIT 29.2 % (39.0-51.0); HEMO FLAGS DIFF FINAL; LYMPH % 17.1 % (9.0-44.0); LYMPHOCYTE # 3.4 TH/MM3 (1.0-4.8); MEAN CELL VOLUME 74.7 FL (80.0-100.0); MEAN CORPUSCULAR HEMOGLOBIN 24.4 PG (27.0-34.0); MEAN CORPUSCULAR HGB CONC 32.7 % (32.0-36.0); MONO % 5.2 % (0.0-8.0); NEUT % 73.3 % (16.0-70.0); PLATELET COUNT 720 TH/MM3 (150-450); RED CELL DISTRIBUTION WIDTH 19.9 % (11.6-17.2); WHITE BLOOD COUNT 19.7 TH/MM3 (4.0-11.0)
[2017-08-17] MEDS: ATORVASTATIN 40 MG TAB PO SCH (09:15)
[2017-08-17] MEDS: ASPIRIN 81 MG CHEW TAB PO SCH (09:15)
[2017-08-17] MEDS: FLUCONAZOLE 200 MG TAB PO SCH (09:15)
[2017-08-17] MEDS: FINASTERIDE 5 MG TAB PO SCH (09:16)
[2017-08-17] MEDS: HEPARIN SODIUM - SQ 10,000 UNITS/ML VIAL SQ SCH ×2 (09:16→21:23)
[2017-08-17] MEDS: GABAPENTIN 300 MG CAP PO SCH ×4 (09:16→21:24)
[2017-08-17] MEDS: amLODIPine BESYLATE 5 MG TAB PO SCH ×2 (09:16→21:24)
[2017-08-17 09:41] LABS: ANION GAP 9 MEQ/L (5-15); AST (GOT) 38 U/L (15-37); BICARBONATE 25.8 MEQ/L (21.0-32.0); BLOOD UREA NITROGEN 18 MG/DL (7-18); CHLORIDE 102 MEQ/L (98-107); GLOMERULAR FILTRATION RATE 118 ML/MIN (>89); MAGNESIUM 2.5 MG/DL (1.5-2.5); SODIUM (NA) 137 MEQ/L (136-145)
[2017-08-17 09:42] LABS: ALT (GPT) 44 U/L (12-78)
[2017-08-17 09:44] LABS: ALKALINE PHOSPHATASE 265 U/L (45-117); TOTAL BILIRUBIN ADULT 0.3 MG/DL (0.2-1.0)
[2017-08-17] MEDS: ACETAMINOPHEN/HYDROcodone 325 MG/5 MG TAB PO PRN ×4 (09:45→21:41)
--- NOTE | 2017-08-17 12:03 | PD.CARD.PN ---
Subjective Subjective Remarks No events overnight Feels well, but concerned with speech Objective Medications Current Medications Medications (Trade) Dose Ordered Sig/Sumanth Route Start Time Stop Time Status Last Admin (D50w (Syr) Inj) 50 ml UNSCH PRN IV PUSH 08/03/17 19:30 (Glucagon Inj) 1 mg UNSCH PRN OTHER 08/03/17 19:30 (NovoLOG SUPPLEMENTAL SCALE) 1 ACHS SLIDING SCALE SQ 08/03/17 21:00 08/16/17 21:56 Sodium Chloride 1,000 ml @ 100 mls/hr Q10H IV 08/03/17 19:30 08/17/17 04:14 (Zofran Inj) 4 mg Q6H PRN IVP 08/03/17 19:30 08/03/17 21:08 (Heparin Inj) 5,000 units Q12H SQ 08/04/17 09:00 08/17/17 09:16 (Tylenol) 650 mg Q6H PRN PO 08/03/17 19:30 (Hilham 5-325 Mg) 1 tab Q4H PRN PO 08/03/17 19:30 08/17/17 09:45 (Morphine Inj) 2 mg Q3H PRN IV PUSH 08/03/17 19:30 08/16/17 06:21 (Alanna-Colace) 1 tab BID PO 08/03/17 21:00 08/16/17 21:53 (Milk Of Magnesia Liq) 30 ml Q12H PRN PO 08/03/17 19:30 08/16/17 10:42 (Senokot) 17.2 mg Q12H PRN PO 08/03/17 19:30 (Dulcolax Supp) 10 mg DAILY PRN RECTAL 08/03/17 19:30 (Lactulose Liq) 30 ml DAILY PRN PO 08/03/17 19:30 08/16/17 12:53 (Plavix) 75 mg DAILY@1600 PO 08/04/17 16:00 08/16/17 18:05 (Neurontin) 600 mg QID PO 08/03/17 21:00 08/17/17 09:16 (Protonix) 40 mg DAILY@1600 PO 08/04/17 16:00 08/16/17 18:05 (Norvasc) 5 mg BID PO 08/05/17 14:15 08/17/17 09:16 (Catapres) 0.1 mg Q4H PRN PO 08/05/17 14:15 (Apresoline) 25 mg Q8HR PO 08/05/17 22:00 08/17/17 06:21 Ceftriaxone Sodium 2000 mg/ Sodium Chloride 100 ml @ 200 mls/hr Q24H IV 08/07/17 14:00 09/18/17 13:59 08/16/17 12:54 (Levemir Inj) 30 units BID SQ 08/08/17 21:00 08/16/17 21:55 (NS Flush) 2 ml BID IV FLUSH 08/10/17 21:00 08/16/17 21:00 (NS Flush) 2 ml UNSCH PRN IV FLUSH 08/10/17 12:45 (Proscar) 5 mg DAILY PO 08/11/17 16:00 08/17/17 09:16 (Aspirin Chew) 81 mg DAILY PO 08/12/17 09:00 08/17/17 09:15 (Lipitor) 40 mg DAILY PO 08/12/17 19:00 08/17/17 09:15 (Tylenol) 650 mg Q4H PRN PO 08/16/17 17:30 08/17/17 02:08 (Benadryl) 25 mg Q4H PRN PO 08/16/17 17:30 08/17/17 02:08 (Diflucan) 200 mg DAILY PO 08/17/17 09:00 08/17/17 09:15 Vital Signs / I&O Vital Signs Date Time Temp Pulse Resp B/P (MAP) Pulse Ox O2 Delivery O2 Flow Rate FiO2 08/17/17 08:11 78 08/17/17 08:00 96.6 96 18 145/69 (94) 96 08/17/17 04:00 97.9 88 18 130/68 (88) 93 08/17/17 03:02 98.3 84 18 118/59 94 08/17/17 02:42 98.0 89 18 129/58 92 08/17/17 00:00 97.6 98 18 152/69 (96) 94 08/16/17 23:00 98 08/16/17 19:30 98.0 104 18 129/69 (89) 94 08/16/17 18:09 96 21 08/16/17 16:09 97.6 96 18 125/57 (79) 96 08/16/17 12:06 97.5 98 18 125/67 (86) 94 I/O 08/16/17 08/16/17 08/16/17 08/17/17 08/17/17 08/17/17 07:00 15:00 23:00 07:00 15:00 23:00 Intake Total 1500 ml 2770 ml 640 ml 100 ml Output Total 2000 ml 1300 ml 800 ml Balance -500 ml 1470 ml -160 ml 100 ml Intake Oral 1500 ml 340 ml IV Total 2430 ml 200 ml 100 ml Packed Cells 400 ml Blood Product IV Normal Saline Flush 40 ml Output Urine Total 2000 ml 1300 ml 800 ml # Bowel Movements 0 7 Physical Exam GENERAL: NAD, AAOx3 SKIN: Warm and dry. HEAD: Atraumatic. Normocephalic. EYES: Pupils equal and round. No scleral icterus. No injection or drainage. ENT: No nasal bleeding or discharge. Mucous membranes pink and moist. NECK: Trachea midline. No JVD. CARDIOVASCULAR: Regular rate and rhythm. RESPIRATORY: No accessory muscle use. Clear to auscultation bilaterally GASTROINTESTINAL: Abdomen soft, non-tender, nondistended. Hepatic and splenic margins not palpable. MUSCULOSKELETAL: Extremities without clubbing, cyanosis, or edema. No obvious deformities. NEUROLOGICAL: Awake and alert. No obvious cranial nerve deficits. Motor grossly within normal limits. Four out of 5 muscle strength in the arms and legs. PSYCHIATRIC: Appropriate mood and affect; insight and judgment normal. Laboratory Laboratory Tests Test 08/17/17 08:50 White Blood Count 19.7 TH/MM3 Red Blood Count 3.90 MIL/MM3 Hemoglobin 9.5 GM/DL Hematocrit 29.2 % Mean Corpuscular Volume 74.7 FL Mean Corpuscular Hemoglobin 24.4 PG Mean Corpuscular Hemoglobin Concent 32.7 % Red Cell Distribution Width 19.9 % Platelet Count 720 TH/MM3 Mean Platelet Volume 7.0 FL Neutrophils (%) (Auto) 73.3 % Lymphocytes (%) (Auto) 17.1 % Monocytes (%) (Auto) 5.2 % Eosinophils (%) (Auto) 3.2 % Basophils (%) (Auto) 1.2 % Neutrophils # (Auto) 14.4 TH/MM3 Lymphocytes # (Auto) 3.4 TH/MM3 Monocytes # (Auto) 1.0 TH/MM3 Eosinophils # (Auto) 0.6 TH/MM3 Basophils # (Auto) 0.2 TH/MM3 CBC Comment DIFF FINAL Differential Comment Blood Urea Nitrogen 18 MG/DL Creatinine 0.70 MG/DL Random Glucose 88 MG/DL Total Protein 5.9 GM/DL Albumin 1.9 GM/DL Calcium Level 8.3 MG/DL Phosphorus Level 4.3 MG/DL Magnesium Level 2.5 MG/DL Alkaline Phosphatase 265 U/L Aspartate Amino Transf (AST/SGOT) 38 U/L Alanine Aminotransferase (ALT/SGPT) 44 U/L Total Bilirubin 0.3 MG/DL Sodium Level 137 MEQ/L Potassium Level 4.0 MEQ/L Chloride Level 102 MEQ/L Carbon Dioxide Level 25.8 MEQ/L Anion Gap 9 MEQ/L Estimat Glomerular Filtration Rate 118 ML/MIN Assessment and Plan Problem List: (1) Osteomyelitis of toe of left foot ICD Codes: M86.9 - Osteomyelitis of toe of left foot Status: Acute (2) PAD (peripheral artery disease) ICD Codes: I73.9 - Peripheral vascular disease, unspecified (3) CVA (cerebral vascular accident) ICD Codes: I63.9 - Cerebral infarction, unspecified Status: Acute (4) DM (diabetes mellitus) ICD Codes: E11.9 - Type 2 diabetes mellitus without complications (5) HTN (hypertension) ICD Codes: I10 - Essential (primary) hypertension (6) Hyperkalemia ICD Codes: E87.5 - Hyperkalemia (7) Sepsis ICD Codes: A41.9 - Sepsis, unspecified organism Status: Acute Assessment and Plan 1) CVA Con't ASA/Plavix per neuro No Atrial Fibrillation noted on telemetry, con't to follow 2) AUSTEN showing no endocarditis or cardioembolic cause of CVA 3) PAD Left lower extremity recanalized by balloon angioplasty and orbital atherectomy Left ICA occlusion, most likely chronic 4) Severe mitral regurgitation Con't to follow, not a candidate for possible surgical intervention at this time 5) Bacteremia Per ID Needs C-scope at some point to rule out colon cancer 6) No further cardiovascular issues at this time, will see PRN call with questions Problem Qualifiers (1) Sepsis: Qualified Codes: A41.9 - Sepsis, unspecified organism Marty Fine DO Aug 17, 2017 12:03
[2017-08-17] MEDS: cefTRIAXone INJ 2,000 MG in SODIUM CHLORIDE 0.9% INJ 100 ML IV SCH (14:55)
[2017-08-17] MEDS: PANTOPRAZOLE SOD 40 MG DELAYED RELEASE TAB PO SCH (16:34)
[2017-08-17] MEDS: CLOPIDOGREL 75 MG TAB PO SCH (16:35)
[2017-08-18] VITALS (7 sets, daily range): BP systolic 114–152; BP diastolic 61–70; PULSE 91–96; RESP 18–20; TEMP 96.5–98.6; O2SAT 91–98
--- NOTE | 2017-08-18 01:07 | HHI.PR ---
Subjective Remarks Late entry - patient seen on 08/17/17 at 1410 pm Patient states that he feels much better denies cp/sob slurred speech improved Objective Vitals Vital Signs Date Time Temp Pulse Resp B/P (MAP) Pulse Ox O2 Delivery O2 Flow Rate FiO2 08/17/17 23:00 98.1 96 18 123/63 (83) 91 08/17/17 20:00 98.7 98 18 127/59 (81) 92 08/17/17 18:04 94 08/17/17 17:11 08/17/17 16:00 98.2 98 18 128/62 (84) 94 08/17/17 12:13 96.2 97 18 139/64 (89) 93 08/17/17 08:11 78 08/17/17 08:00 96.6 96 18 145/69 (94) 96 08/17/17 04:00 97.9 88 18 130/68 (88) 93 08/17/17 03:02 98.3 84 18 118/59 94 08/17/17 02:42 98.0 89 18 129/58 92 I/O 08/17/17 08/17/17 08/17/17 08/18/17 08/18/17 08/18/17 06:59 14:59 22:59 06:59 14:59 22:59 Intake Total 640 ml 580 ml 100 ml Output Total 800 ml 3050 ml Balance -160 ml -2470 ml 100 ml Intake Oral 480 ml IV Total 200 ml 100 ml 100 ml Packed Cells 400 ml Blood Product IV Normal Saline Flush 40 ml Output Urine Total 800 ml 3050 ml # Bowel Movements 7 1 Result Diagram: 08/17/17 0850 08/17/17 0850 Objective Remarks General: lying in bed, nad Respiratory: Lungs CTA, Non-labored respirations, BS equal, Coarse breath sounds Gastrointestinal: Positive Bowel Sounds, Non-Distended, Non-Tender Cardiovascular: Normal rate, Regular Rhythm Skin: palor improved. Musculoskeletal: Deformity (none) Psychiatric: Cooperative, Appropriate mood & affect Orientation: oriented to Self, oriented to Place, oriented to Time (with cues) , oriented to Situation Neurologic: Pupils (E RLA), EOM (intact with nystagmus), Facial Symmetry ( symmetric), Speech (clear with no word finding difficulties) Motor: Right Upper Extremity (4+/5), Left Upper Extremity (4+/5), Right Lower Extremity (4+/5), Left Lower Extremity (bandage in place and proximal strength is grossly intact) Procedures DATE OF SURGERY 08/08/2017 PREOPERATIVE DIAGNOSIS Diabetic foot wound left lower extremity. POSTOPERATIVE DIAGNOSIS Diabetic foot wound left lower extremity. PROCEDURE 1. Selective left lower extremity arteriogram. 2. Rechanneling of left superficial femoral artery with balloon angioplasty of the left SFA and above-knee popliteal artery with a 5-mm x 40-mm balloon and then [facility] atherectomy SURGEON Dr. Herber Esquivel GRIFFIN HADDAD DPM DATE OF SURGERY: 08/09/2017 PREOPERATIVE DIAGNOSIS 1. Left heel gangrene, dry and stable. 2. Left heel osteomyelitis. 3. Left heel Achilles rupture. POSTOPERATIVE DIAGNOSIS 1. Left heel gangrene, dry and stable. 2. Left heel osteomyelitis. 3. Left heel Achilles rupture. PROCEDURE 1. Left heel partial calcanectomy. 2. Left ankle I&D. A/P Problem List: (1) Sepsis ICD Code: A41.9 - Sepsis, unspecified organism Status: Acute (2) Osteomyelitis ICD Code: M86.9 - Osteomyelitis, unspecified (3) Hyperkalemia ICD Code: E87.5 - Hyperkalemia (4) HTN (hypertension) ICD Code: I10 - Essential (primary) hypertension (5) DM (diabetes mellitus) ICD Code: E11.9 - Type 2 diabetes mellitus without complications (6) CVA (cerebral vascular accident) ICD Code: I63.9 - Cerebral infarction, unspecified Status: Acute Assessment and Plan 1. Sepsis: Present admission, patient with a heart rate of 110, WBC 25.4 and source left heel ulcer. The patient was given IV vancomycin and Zosyn in the ER and blood cultures were obtained. The patient is growing Streptococcus Bovis. ID consulted. The patient currently on IV fluconazole and IV Rocephin. Patient is status post E which was negative. Continue antibiotics as per ID recommendations. 2. Osteomyelitis:Left Foot. X-ray w/ erosive changes along posterior calcaneus with possible avulsion injury, MRI Foot with large soft tissue ulcer heal and broad area of osteomyelitis of posterior calcaneus with rupture of Achilles tendon, images reviewed . S/p IV Abx as above, will continue. The patient is status post left partial calcaneal resection. Patient to begin wound VAC on 08/14/17. As per podiatry plan is to discharge early next week once okay to DC with wound VAC and PICC line. 3. Hyperkalemia: Mildly potassium 5.5. The patient is status post insulin and D50 in the ER. Hyperkalemia now resolved. Continue to monitor BMP. 4. Hypertension: Blood pressure seems to be stable. Continue amlodipine 5 mg by mouth daily. Patient on clonidine as needed for very elevated systolic blood pressure. 5. Left parietal/occipital stroke: Continue aspirin and Plavix. Patient with slurred speech on 08/14 and 08/15. Repeat CT scan of the brain on 08/15 did not show any acute disease. 6. Iron deficiency anemia. Iron studies concurrent with iron deficiency anemia , stool Hemoccult is negative. Patient had been seen by GI some admission and offered a colonoscopy. However the patient stated he did not feel ready at the time to undergo the colonic prep. The patient is now willing to have the colonoscopy, consulted GI. The patient possibly developed an allergic reaction to IV iron. I will place it as an allergy. 08/16 The patient is very pale looking and extremely tired. I believe the patient has symptoms due to his anemia. I will transfuse 1 unit of packed red blood cells today. 08/17 Much improved after 1 unit PRBC. PAtient less symptomatic from anemia. GI reconsulted there is no urgency for EGD/colonoscopy. Neurology to recommend guidance on aspirin and Plavix for GI procedure. 7. Thrombocytosis: Likely reactive to iron deficiency anemia. Continue to monitor CBC and platelets. 8. Hyperlipidemia: Lipid profile showed an elevated triglycerides of 182, cholesterol 183, LDL cholesterol 110. Patient started on Lipitor. There are no reported side effects. 9. GI prophylaxis: I will add a PPI. 10. DVT prophylaxis: Continue SCDs, I will chemoprophylaxis given symptomatic anemia. Discharge Planning Continue to monitor in the medical floor. Possible Dc to acute rehab inpatient pending neurology recommendations. Patient may be discharged to rehab to have outpatient EGD/colonoscopy. Problem Qualifiers (1) Sepsis: Qualified Codes: A41.9 - Sepsis, unspecified organism Boo Zamudio MD Aug 18, 2017 01:06
[2017-08-18] MEDS: hydrALAZINE HCL 25 MG TAB PO SCH ×3 (07:05→22:25)
[2017-08-18] MEDS: INSULIN ASPART SUPPLEMENTAL SCALE SQ SCH ×4 (08:00→22:24)
[2017-08-18] MEDS: SODIUM CHLORIDE 0.9% FLUSH 5 ML FLUSH IV FLUSH SCH ×2 (09:00→22:08)
[2017-08-18] MEDS: DOCUSATE SODIUM 50 MG/SENNA 8.6 MG TAB PO SCH ×2 (09:00→22:06)
[2017-08-18] MEDS: SODIUM CHLOR 0.9% 1000 ML INJ 1,000 ML IV SCH (09:30)
[2017-08-18] MEDS: INSULIN DETEMIR 100 UNITS/ML VIAL SQ SCH ×2 (09:34→22:24)
[2017-08-18] MEDS: ATORVASTATIN 40 MG TAB PO SCH (09:35)
[2017-08-18] MEDS: GABAPENTIN 300 MG CAP PO SCH ×4 (09:35→22:06)
[2017-08-18] MEDS: FINASTERIDE 5 MG TAB PO SCH (09:36)
[2017-08-18] MEDS: ASPIRIN 81 MG CHEW TAB PO SCH (09:36)
[2017-08-18] MEDS: FLUCONAZOLE 200 MG TAB PO SCH (09:37)
[2017-08-18] MEDS: amLODIPine BESYLATE 5 MG TAB PO SCH ×2 (09:37→22:06)
[2017-08-18] MEDS: ACETAMINOPHEN/HYDROcodone 325 MG/5 MG TAB PO PRN ×3 (09:37→22:07)
[2017-08-18] MEDS: HEPARIN SODIUM - SQ 10,000 UNITS/ML VIAL SQ SCH ×2 (09:38→22:06)
--- NOTE | 2017-08-18 10:41 | HHI.GIFU ---
GI Follow-up Note Consult Follow-up Subjective: Patient laying in bed comfortably, he feels better but getting constipated again. Given 1 U PRBC with appropriate rise in H&H. Objective: PHYSICAL EXAMINATION: Vitals signs stable No fever ABDOMEN: Soft, nondistended, nontender [employer]: alert and oriented times three. Available Data (labs, X- Rays, Procedues) : ASSESSMENT/PLAN: 1. Anemia- can do EGD without dilation and colonoscopy without larger polypectomy while on Plavix. Will ask neuro for their advice. If not holding plavix can do procedures monday with colon prep on monday. 2. Constipation-miralax It was a pleasure seeing Adilson Lehman. Thank you for this consult. Entered by: Manuel Estrada MD Aug 18, 2017 10:41
[2017-08-18] MEDS: POLYETHYLENE GLYCOL 17 GM PKG PO SCH (12:51)
--- NOTE | 2017-08-18 13:57 | HHI.PR ---
Subjective Remarks Denies cp/sob good appetite Denies slurred speech Objective Vitals Vital Signs Date Time Temp Pulse Resp B/P (MAP) Pulse Ox O2 Delivery O2 Flow Rate FiO2 08/18/17 11:56 98.0 93 20 139/67 (91) 98 08/18/17 10:25 92 08/18/17 07:55 96.5 91 18 114/65 (81) 93 08/18/17 06:30 97 Nasal Cannula 2.00 08/18/17 04:00 96.8 95 18 133/68 (89) 91 08/18/17 04:00 Nasal Cannula 2.00 08/17/17 23:00 98.1 96 18 123/63 (83) 91 08/17/17 20:00 98 08/17/17 20:00 98.7 98 18 127/59 (81) 92 08/17/17 18:04 94 08/17/17 17:11 08/17/17 16:00 98.2 98 18 128/62 (84) 94 I/O 08/17/17 08/17/17 08/17/17 08/18/17 08/18/17 08/18/17 07:00 15:00 23:00 07:00 15:00 23:00 Intake Total 640 ml 580 ml 100 ml Output Total 800 ml 3050 ml 1800 ml Balance -160 ml -2470 ml -1700 ml Intake Oral 480 ml IV Total 200 ml 100 ml 100 ml Packed Cells 400 ml Blood Product IV Normal Saline Flush 40 ml Output Urine Total 800 ml 3050 ml 1800 ml # Bowel Movements 7 1 1 Result Diagram: 08/17/17 0850 08/17/17 0850 Objective Remarks General: lying in bed, nad Respiratory: Lungs CTA, Non-labored respirations, BS equal, Coarse breath sounds Gastrointestinal: Positive Bowel Sounds, Non-Distended, Non-Tender Cardiovascular: Normal rate, Regular Rhythm Skin: palor improved. Musculoskeletal: Deformity (none) Psychiatric: Cooperative, Appropriate mood & affect Orientation: oriented to Self, oriented to Place, oriented to Time (with cues) , oriented to Situation Neurologic: Pupils (E RLA), EOM (intact with nystagmus), Facial Symmetry ( symmetric), Speech (clear with no word finding difficulties) Motor: Right Upper Extremity (4+/5), Left Upper Extremity (4+/5), Right Lower Extremity (4+/5), Left Lower Extremity (bandage in place and proximal strength is grossly intact) Procedures DATE OF SURGERY 08/08/2017 PREOPERATIVE DIAGNOSIS Diabetic foot wound left lower extremity. POSTOPERATIVE DIAGNOSIS Diabetic foot wound left lower extremity. PROCEDURE 1. Selective left lower extremity arteriogram. 2. Rechanneling of left superficial femoral artery with balloon angioplasty of the left SFA and above-knee popliteal artery with a 5-mm x 40-mm balloon and then I atherectomy SURGEON Dr. Herber Esquivel GRIFFIN HADDAD DPM DATE OF SURGERY: 08/09/2017 PREOPERATIVE DIAGNOSIS 1. Left heel gangrene, dry and stable. 2. Left heel osteomyelitis. 3. Left heel Achilles rupture. POSTOPERATIVE DIAGNOSIS 1. Left heel gangrene, dry and stable. 2. Left heel osteomyelitis. 3. Left heel Achilles rupture. PROCEDURE 1. Left heel partial calcanectomy. 2. Left ankle I&D. A/P Problem List: (1) Sepsis ICD Code: A41.9 - Sepsis, unspecified organism Status: Acute (2) Osteomyelitis ICD Code: M86.9 - Osteomyelitis, unspecified (3) Hyperkalemia ICD Code: E87.5 - Hyperkalemia Status: Acute (4) HTN (hypertension) ICD Code: I10 - Essential (primary) hypertension Status: Chronic (5) DM (diabetes mellitus) ICD Code: E11.9 - Type 2 diabetes mellitus without complications Status: Chronic (6) CVA (cerebral vascular accident) ICD Code: I63.9 - Cerebral infarction, unspecified Status: Acute Assessment and Plan 1. Sepsis: Present admission, patient with a heart rate of 110, WBC 25.4 and source left heel ulcer. The patient was given IV vancomycin and Zosyn in the ER and blood cultures were obtained. The patient is growing Streptococcus Bovis. ID consulted. The patient currently on IV fluconazole and IV Rocephin. Patient is status post E which was negative. Continue antibiotics as per ID recommendations. 2. Osteomyelitis:Left Foot. X-ray w/ erosive changes along posterior calcaneus with possible avulsion injury, MRI Foot with large soft tissue ulcer heal and broad area of osteomyelitis of posterior calcaneus with rupture of Achilles tendon, images reviewed . S/p IV Abx as above, will continue. The patient is status post left partial calcaneal resection. Patient to begin wound VAC on 08/14/17. As per podiatry plan is to discharge early next week once okay to DC with wound VAC and PICC line. 3. Hyperkalemia: Mildly potassium 5.5. The patient is status post insulin and D50 in the ER. Hyperkalemia now resolved. Continue to monitor BMP. 4. Hypertension: Blood pressure seems to be stable. Continue amlodipine 5 mg by mouth daily. Patient on clonidine as needed for very elevated systolic blood pressure. 5. Left parietal/occipital stroke: Continue aspirin and Plavix. Patient with slurred speech on 08/14 and 08/15. Repeat CT scan of the brain on 08/15 did not show any acute disease. 6. Iron deficiency anemia. Iron studies concurrent with iron deficiency anemia , stool Hemoccult is negative. Patient had been seen by GI some admission and offered a colonoscopy. However the patient stated he did not feel ready at the time to undergo the colonic prep. The patient is now willing to have the colonoscopy, consulted GI. The patient possibly developed an allergic reaction to IV iron. I will place it as an allergy. 08/16 The patient is very pale looking and extremely tired. I believe the patient has symptoms due to his anemia. I will transfuse 1 unit of packed red blood cells today. 08/17 Much improved after 1 unit PRBC. PAtient less symptomatic from anemia. GI reconsulted there is no urgency for EGD/colonoscopy. Neurology to recommend guidance on aspirin and Plavix for GI procedure. 08/18 Possinble EGD/colonoscopy on monday. 7. Thrombocytosis: Likely reactive to iron deficiency anemia. Continue to monitor CBC and platelets. 8. Hyperlipidemia: Lipid profile showed an elevated triglycerides of 182, cholesterol 183, LDL cholesterol 110. Patient started on Lipitor. There are no reported side effects. 9. GI prophylaxis: Continue PPI. 10. DVT prophylaxis: Continue SCDs, No chemoprophylaxis given symptomatic anemia. Discharge Planning Continue to monitor in the medical floor. For EGD/colonoscopy on monday. Will need ID input regarding antibiotic management. Problem Qualifiers (1) Sepsis: Qualified Codes: A41.9 - Sepsis, unspecified organism (2) HTN (hypertension): Qualified Codes: I10 - Essential (primary) hypertension (3) DM (diabetes mellitus): Boo Zamudio MD Aug 18, 2017 13:57
[2017-08-18] MEDS: cefTRIAXone INJ 2,000 MG in SODIUM CHLORIDE 0.9% INJ 100 ML IV SCH (14:00)
--- NOTE | 2017-08-18 14:58 | HHI.PR ---
Subjective Subjective Comments Patient awake and alert. Denies any pain. No shortness of breath. Allergies: Coded Allergies: *MDRO Multi-Drug Resistant Organism (Verified Adverse Reaction, Unknown, ) MRSA (arm wound) - 01/2016 MRSA (blood, urine, wound) - 06/2013 Review of Systems All other ROS: ROS reviewed as documented in chart Exam I&O / VS Vital Signs Date Time Temp Pulse Resp B/P (MAP) Pulse Ox O2 Delivery O2 Flow Rate FiO2 08/18/17 11:56 98.0 93 20 139/67 (91) 98 08/18/17 10:25 92 08/18/17 07:55 96.5 91 18 114/65 (81) 93 08/18/17 06:30 97 Nasal Cannula 2.00 08/18/17 04:00 96.8 95 18 133/68 (89) 91 08/18/17 04:00 Nasal Cannula 2.00 08/17/17 23:00 98.1 96 18 123/63 (83) 91 08/17/17 20:00 98 08/17/17 20:00 98.7 98 18 127/59 (81) 92 08/17/17 18:04 94 08/17/17 17:11 08/17/17 16:00 98.2 98 18 128/62 (84) 94 General: No acute distress Cardiovascular: Normal rate (Mild tachycardia) Psychiatric: Cooperative Orientation: oriented to Self, oriented to Place, oriented to Time, oriented to Situation Neurologic: Speech (Clear) Motor: Right Upper Extremity (4+/5), Left Upper Extremity (5/5), Right Lower Extremity (4_/5), Left Lower Extremity (Limited testing; surical bandage in place and moves toes to command) Objective Micro and Labs Date/Time Source Procedure Growth Status 08/06/17 11:20 Blood Peripheral Aerobic Blood Culture - Final NO GROWTH IN 5 DAYS Complete 08/06/17 11:20 Blood Peripheral Anaerobic Blood Culture - Final NO GROWTH IN 5 DAYS Complete 08/15/17 13:35 Stool Stool Stool Occult Blood (ABHISHEK) - Final HEMOCCULT NEGATIVE Complete 08/11/17 00:45 Urine Catheterized Urine Urine Culture - Final NO GROWTH IN 48 HOURS. Complete 08/09/17 18:57 Wound Heel Fungal Smear - Final NO FUNGAL ELEMENTS SEEN. Resulted 08/09/17 18:57 Fungal Culture - Preliminary Crystal Tropicalis Resulted Assessment and Plan Diagnosis: (1) CVA (cerebral vascular accident) ICD Codes: I63.9 - Cerebral infarction, unspecified Status: Acute (2) Diabetic ulcer of heel ICD Codes: E11.621 - Type 2 diabetes mellitus with foot ulcer; L97.409 - Non- pressure chronic ulcer of unspecified heel and midfoot with unspecified severity Status: Acute Qualifiers: Diabetes mellitus type: other specified (including CAMILO) Laterality: left Non-pressure ulcer stage: unspecified non-pressure ulcer stage Qualified Codes: E13.621 - Other specified diabetes mellitus with foot ulcer; L97.429 - Non-pressure chronic ulcer of left heel and midfoot with unspecified severity Assessment 1. Left parietal/occipital stroke 2. Left heel ulceration status post left heel partial calcanectomy and ankle I and D: Now nonweightbearing. ID following 3. Impaired mobility and ADLs 4. Hypertension 5. Diabetes mellitus 6. Peripheral neuropathy 7. Peripheral vascular disease Plan 1. Physical therapy is beginning to mobilize the patient is max assist for transfers and unable to progress to gait. Currently nonweightbearing left lower extremity 2. Occupational therapy addressing ADLs and patient contact guard for grooming and upper body dressing and maximal assistance for lower body dressing 3. Case management is addressing discharge planning for ongoing inpatient rehabilitation at subacute/skilled level. 4. Will continue to follow while hospitalized and at discharge as appropriate Izabella Riddle MD Aug 18, 2017 14:57
--- NOTE | 2017-08-18 15:01 | HHI.PR ---
Review/Management Diagnosis Acute ischemic stroke Left Carotid artery occlusion Diagnosis/Plan: (1) Acute ischemic left MCA stroke ICD Codes: I63.512 - Cerebral infarction due to unspecified occlusion or stenosis of left middle cerebral artery Status: Acute Plan: d/w Dr. Anahi pulido ok to stop plavix and continue aspirin avoid HYPOTENSION with left carotid occlusion p.t. follow exam (2) Left carotid artery occlusion ICD Codes: I65.22 - Occlusion and stenosis of left carotid artery Status: Chronic (3) HTN (hypertension) ICD Codes: I10 - Essential (primary) hypertension Status: Chronic (4) DM (diabetes mellitus) ICD Codes: E11.9 - Type 2 diabetes mellitus without complications Status: Chronic Subjective Subjective Comments xcover No acute events reported No headache No chest pain No dyspnea Active Medications Current Medications Medications (Trade) Dose Ordered Sig/Sumanth Route Start Time Stop Time Status Last Admin (D50w (Syr) Inj) 50 ml UNSCH PRN IV PUSH 08/03/17 19:30 (Glucagon Inj) 1 mg UNSCH PRN OTHER 08/03/17 19:30 (NovoLOG SUPPLEMENTAL SCALE) 1 ACHS SLIDING SCALE SQ 08/03/17 21:00 08/18/17 12:00 Sodium Chloride 1,000 ml @ 100 mls/hr Q10H IV 08/03/17 19:30 08/17/17 04:14 (Zofran Inj) 4 mg Q6H PRN IVP 08/03/17 19:30 08/03/17 21:08 (Heparin Inj) 5,000 units Q12H SQ 08/04/17 09:00 08/18/17 09:38 (Tylenol) 650 mg Q6H PRN PO 08/03/17 19:30 ([place] 5-325 Mg) 1 tab Q4H PRN PO 08/03/17 19:30 08/18/17 09:37 (Morphine Inj) 2 mg Q3H PRN IV PUSH 08/03/17 19:30 08/16/17 06:21 (Alanna-Colace) 1 tab BID PO 08/03/17 21:00 08/16/17 21:53 (Milk Of Magnesia Liq) 30 ml Q12H PRN PO 08/03/17 19:30 08/16/17 10:42 (Senokot) 17.2 mg Q12H PRN PO 08/03/17 19:30 (Dulcolax Supp) 10 mg DAILY PRN RECTAL 08/03/17 19:30 (Lactulose Liq) 30 ml DAILY PRN PO 08/03/17 19:30 08/16/17 12:53 (Plavix) 75 mg DAILY@1600 PO 08/04/17 16:00 08/17/17 16:35 (Neurontin) 600 mg QID PO 08/03/17 21:00 08/18/17 12:51 (Protonix) 40 mg DAILY@1600 PO 08/04/17 16:00 08/17/17 16:34 (Norvasc) 5 mg BID PO 08/05/17 14:15 08/18/17 09:37 (Catapres) 0.1 mg Q4H PRN PO 08/05/17 14:15 (Apresoline) 25 mg Q8HR PO 08/05/17 22:00 08/18/17 14:33 Ceftriaxone Sodium 2000 mg/ Sodium Chloride 100 ml @ 200 mls/hr Q24H IV 08/07/17 14:00 09/18/17 13:59 08/18/17 14:00 (Levemir Inj) 30 units BID SQ 08/08/17 21:00 08/18/17 09:34 (NS Flush) 2 ml BID IV FLUSH 08/10/17 21:00 08/18/17 09:00 (NS Flush) 2 ml UNSCH PRN IV FLUSH 08/10/17 12:45 (Proscar) 5 mg DAILY PO 08/11/17 16:00 08/18/17 09:36 (Aspirin Chew) 81 mg DAILY PO 08/12/17 09:00 08/18/17 09:36 (Lipitor) 40 mg DAILY PO 08/12/17 19:00 08/18/17 09:35 (Tylenol) 650 mg Q4H PRN PO 08/16/17 17:30 08/17/17 02:08 (Benadryl) 25 mg Q4H PRN PO 08/16/17 17:30 08/17/17 02:08 (Diflucan) 200 mg DAILY PO 08/17/17 09:00 08/18/17 09:37 (Miralax) 17 gm DAILY PO 08/18/17 11:30 08/18/17 12:51 Allergies Allergies Coded Allergies *MDRO Multi-Drug Resistant Organism (Verified Adverse Reaction, Unknown, ) Review of Systems All other ROS: ROS reviewed as documented in chart Exam I&O / VS Vital Signs Date Time Temp Pulse Resp B/P (MAP) Pulse Ox O2 Delivery O2 Flow Rate FiO2 08/18/17 11:56 98.0 93 20 139/67 (91) 98 08/18/17 10:25 92 08/18/17 07:55 96.5 91 18 114/65 (81) 93 08/18/17 06:30 97 Nasal Cannula 2.00 08/18/17 04:00 96.8 95 18 133/68 (89) 91 08/18/17 04:00 Nasal Cannula 2.00 08/17/17 23:00 98.1 96 18 123/63 (83) 91 08/17/17 20:00 98 08/17/17 20:00 98.7 98 18 127/59 (81) 92 08/17/17 18:04 94 08/17/17 17:11 08/17/17 16:00 98.2 98 18 128/62 (84) 94 General: Alert and Oriented, No acute distress Eye: Vision unchanged Cardiology: Normal rate Neurologic: Alert, Oriented, Other (unchanged) Psychiatric: Cooperative, Appropriate mood & affect Exam Comments ox 2-3, follows, pleasant, ou rt>left vision loss- chronic, mild rt hemiparesis , left le bandaged Objective Micro and Labs Date/Time Source Procedure Growth Status 08/06/17 11:20 Blood Peripheral Aerobic Blood Culture - Final NO GROWTH IN 5 DAYS Complete 08/06/17 11:20 Blood Peripheral Anaerobic Blood Culture - Final NO GROWTH IN 5 DAYS Complete 08/15/17 13:35 Stool Stool Stool Occult Blood (ABHISHEK) - Final HEMOCCULT NEGATIVE Complete 08/11/17 00:45 Urine Catheterized Urine Urine Culture - Final NO GROWTH IN 48 HOURS. Complete 08/09/17 18:57 Wound Heel Fungal Smear - Final NO FUNGAL ELEMENTS SEEN. Resulted 08/09/17 18:57 Fungal Culture - Preliminary Crystal Tropicalis Resulted Problem Qualifiers (1) HTN (hypertension): Qualified Codes: I10 - Essential (primary) hypertension (2) DM (diabetes mellitus): Cristino Moran MD Aug 18, 2017 15:01
[2017-08-18] MEDS: CLOPIDOGREL 75 MG TAB PO SCH (16:22)
[2017-08-18] MEDS: PANTOPRAZOLE SOD 40 MG DELAYED RELEASE TAB PO SCH (16:22)
[2017-08-19] VITALS (8 sets, daily range): BP systolic 84–160; BP diastolic 42–74; PULSE 89–99; RESP 18–20; TEMP 97.2–98.7; O2SAT 92–95
[2017-08-19] MEDS: hydrALAZINE HCL 25 MG TAB PO SCH ×3 (06:17→22:32)
[2017-08-19 06:45] LABS: HEMATOCRIT 31.3 % (39.0-51.0); MEAN CELL VOLUME 75.5 FL (80.0-100.0); MEAN CORPUSCULAR HEMOGLOBIN 24.2 PG (27.0-34.0); PLATELET COUNT 813 TH/MM3 (150-450); RED BLOOD COUNT 4.15 MIL/MM3 (4.50-5.90); RED CELL DISTRIBUTION WIDTH 20.8 % (11.6-17.2); WHITE BLOOD COUNT 19.7 TH/MM3 (4.0-11.0)
[2017-08-19 07:06] LABS: ALT (GPT) 37 U/L (12-78); ANION GAP 9 MEQ/L (5-15); AST (GOT) 21 U/L (15-37); BICARBONATE 26.4 MEQ/L (21.0-32.0); BLOOD UREA NITROGEN 21 MG/DL (7-18); CHLORIDE 102 MEQ/L (98-107); GLOMERULAR FILTRATION RATE 106 ML/MIN (>89); MAGNESIUM 2.2 MG/DL (1.5-2.5); POTASSIUM 4.5 MEQ/L (3.5-5.1); SODIUM (NA) 137 MEQ/L (136-145)
[2017-08-19 07:08] LABS: ALKALINE PHOSPHATASE 252 U/L (45-117); HEMO FLAGS AUTO DIFF; TOTAL BILIRUBIN ADULT 0.1 MG/DL (0.2-1.0)
[2017-08-19] MEDS: INSULIN ASPART SUPPLEMENTAL SCALE SQ SCH ×4 (08:00→22:36)
[2017-08-19] MEDS: SODIUM CHLORIDE 0.9% FLUSH 5 ML FLUSH IV FLUSH SCH ×2 (09:00→22:34)
[2017-08-19] MEDS: FLUCONAZOLE 200 MG TAB PO SCH (09:50)
[2017-08-19] MEDS: FINASTERIDE 5 MG TAB PO SCH (09:50)
[2017-08-19] MEDS: GABAPENTIN 300 MG CAP PO SCH ×4 (09:50→22:32)
[2017-08-19] MEDS: DOCUSATE SODIUM 50 MG/SENNA 8.6 MG TAB PO SCH ×2 (09:50→22:32)
[2017-08-19] MEDS: amLODIPine BESYLATE 5 MG TAB PO SCH ×2 (09:50→22:32)
[2017-08-19] MEDS: ATORVASTATIN 40 MG TAB PO SCH (09:51)
[2017-08-19] MEDS: POLYETHYLENE GLYCOL 17 GM PKG PO SCH (09:51)
[2017-08-19] MEDS: INSULIN DETEMIR 100 UNITS/ML VIAL SQ SCH ×2 (09:54→22:36)
--- NOTE | 2017-08-19 10:01 | HHI.PR ---
Review/Management Diagnosis Acute ischemic stroke Left Carotid artery occlusion Diagnosis/Plan: (1) Acute ischemic left MCA stroke ICD Codes: I63.512 - Cerebral infarction due to unspecified occlusion or stenosis of left middle cerebral artery Status: Acute Plan: left ica occlusion was on plavix/aspirin prior to stroke recs neuro stable ok to stop plavix and continue aspirin avoid HYPOTENSION with left carotid occlusion d/w rn p.t. follow exam (2) Left carotid artery occlusion ICD Codes: I65.22 - Occlusion and stenosis of left carotid artery Status: Chronic (3) HTN (hypertension) ICD Codes: I10 - Essential (primary) hypertension Status: Chronic (4) DM (diabetes mellitus) ICD Codes: E11.9 - Type 2 diabetes mellitus without complications Status: Chronic Subjective Subjective Comments No acute events reported No headache No chest pain No dyspnea Active Medications Current Medications Medications (Trade) Dose Ordered Sig/Sumanth Route Start Time Stop Time Status Last Admin (D50w (Syr) Inj) 50 ml UNSCH PRN IV PUSH 08/03/17 19:30 (Glucagon Inj) 1 mg UNSCH PRN OTHER 08/03/17 19:30 (NovoLOG SUPPLEMENTAL SCALE) 1 ACHS SLIDING SCALE SQ 08/03/17 21:00 08/18/17 22:24 (Zofran Inj) 4 mg Q6H PRN IVP 08/03/17 19:30 08/03/17 21:08 (Heparin Inj) 5,000 units Q12H SQ 08/04/17 09:00 08/18/17 22:06 (Tylenol) 650 mg Q6H PRN PO 08/03/17 19:30 ([place] 5-325 Mg) 1 tab Q4H PRN PO 08/03/17 19:30 08/18/17 22:07 (Morphine Inj) 2 mg Q3H PRN IV PUSH 08/03/17 19:30 08/16/17 06:21 (Alanna-Colace) 1 tab BID PO 08/03/17 21:00 08/18/17 22:06 (Milk Of Magnesia Liq) 30 ml Q12H PRN PO 08/03/17 19:30 08/16/17 10:42 (Senokot) 17.2 mg Q12H PRN PO 08/03/17 19:30 (Dulcolax Supp) 10 mg DAILY PRN RECTAL 08/03/17 19:30 (Lactulose Liq) 30 ml DAILY PRN PO 08/03/17 19:30 08/16/17 12:53 (Plavix) 75 mg DAILY@1600 PO 08/04/17 16:00 08/18/17 16:22 (Neurontin) 600 mg QID PO 08/03/17 21:00 08/18/17 22:06 (Protonix) 40 mg DAILY@1600 PO 08/04/17 16:00 08/18/17 16:22 (Norvasc) 5 mg BID PO 08/05/17 14:15 08/18/17 22:06 (Catapres) 0.1 mg Q4H PRN PO 08/05/17 14:15 (Apresoline) 25 mg Q8HR PO 08/05/17 22:00 08/19/17 06:17 Ceftriaxone Sodium 2000 mg/ Sodium Chloride 100 ml @ 200 mls/hr Q24H IV 08/07/17 14:00 09/18/17 13:59 08/18/17 14:00 (Levemir Inj) 30 units BID SQ 08/08/17 21:00 08/18/17 22:24 (NS Flush) 2 ml BID IV FLUSH 08/10/17 21:00 08/18/17 22:08 (NS Flush) 2 ml UNSCH PRN IV FLUSH 08/10/17 12:45 (Proscar) 5 mg DAILY PO 08/11/17 16:00 08/18/17 09:36 (Aspirin Chew) 81 mg DAILY PO 08/12/17 09:00 08/18/17 09:36 (Lipitor) 40 mg DAILY PO 08/12/17 19:00 08/18/17 09:35 (Tylenol) 650 mg Q4H PRN PO 08/16/17 17:30 08/17/17 02:08 (Benadryl) 25 mg Q4H PRN PO 08/16/17 17:30 08/17/17 02:08 (Diflucan) 200 mg DAILY PO 08/17/17 09:00 08/18/17 09:37 (Miralax) 17 gm DAILY PO 08/18/17 11:30 08/18/17 12:51 Allergies Allergies Coded Allergies *MDRO Multi-Drug Resistant Organism (Verified Adverse Reaction, Unknown, ) Review of Systems All other ROS: ROS reviewed as documented in chart Exam I&O / VS Vital Signs Date Time Temp Pulse Resp B/P (MAP) Pulse Ox O2 Delivery O2 Flow Rate FiO2 08/19/17 08:00 98.4 91 18 142/74 (96) 94 08/19/17 04:00 98.4 89 18 135/61 (85) 92 08/19/17 02:38 92 137/65 (89) 94 08/19/17 00:00 98.4 91 18 160/74 (102) 94 08/18/17 20:05 96 08/18/17 20:00 98.6 92 18 126/61 (82) 92 08/18/17 20:00 Room Air 08/18/17 16:00 97.7 91 20 152/70 (97) 94 08/18/17 11:56 98.0 93 20 139/67 (91) 98 08/18/17 10:25 92 General: Alert and Oriented, No acute distress Eye: Vision unchanged Cardiology: Normal rate Neurologic: Alert, Oriented, Other (unchanged) Psychiatric: Cooperative, Appropriate mood & affect Exam Comments ox 3, follows, pleasant, ou rt>left vision loss- chronic, rt gaze nystagmus, mild rt hemiparesis 5-/5, left le bandaged Objective Micro and Labs Laboratory Tests Test 08/19/17 05:40 White Blood Count 19.7 Red Blood Count 4.15 Hemoglobin 10.0 Hematocrit 31.3 Mean Corpuscular Volume 75.5 Mean Corpuscular Hemoglobin 24.2 Mean Corpuscular Hemoglobin Concent 32.0 Red Cell Distribution Width 20.8 Platelet Count 813 Mean Platelet Volume 7.2 CBC Comment AUTO DIFF Blood Urea Nitrogen 21 Creatinine 0.77 Random Glucose 111 Total Protein 6.1 Albumin 1.9 Calcium Level 8.4 Phosphorus Level 4.9 Magnesium Level 2.2 Alkaline Phosphatase 252 Aspartate Amino Transf (AST/SGOT) 21 Alanine Aminotransferase (ALT/SGPT) 37 Total Bilirubin 0.1 Sodium Level 137 Potassium Level 4.5 Chloride Level 102 Carbon Dioxide Level 26.4 Anion Gap 9 Estimat Glomerular Filtration Rate 106 Date/Time Source Procedure Growth Status 08/06/17 11:20 Blood Peripheral Aerobic Blood Culture - Final NO GROWTH IN 5 DAYS Complete 08/06/17 11:20 Blood Peripheral Anaerobic Blood Culture - Final NO GROWTH IN 5 DAYS Complete 08/15/17 13:35 Stool Stool Stool Occult Blood (ABHISHEK) - Final HEMOCCULT NEGATIVE Complete 08/11/17 00:45 Urine Catheterized Urine Urine Culture - Final NO GROWTH IN 48 HOURS. Complete 08/09/17 18:57 Wound Heel Fungal Smear - Final NO FUNGAL ELEMENTS SEEN. Resulted 08/09/17 18:57 Fungal Culture - Preliminary Crystal Tropicalis Resulted Problem Qualifiers (1) HTN (hypertension): Qualified Codes: I10 - Essential (primary) hypertension (2) DM (diabetes mellitus): Cristino Moran MD Aug 19, 2017 10:01
[2017-08-19 10:07] LABS: BANDS 5 % (0-6); BASOPHILS 1 % (0-2); EOSINOPHILS 2 % (0-4); MYELOCYTES 1 % (0-0); NEUTROPHIL # MANUAL DIFF 15.8 TH/MM3 (1.8-7.7); OVALOCYTES 1+ (NORMAL); PLATELET ESTIMATE SMEAR HIGH (NORMAL); PLATELET MORPHOLOGY NORMAL (NORMAL); POLYS (SEG NEUTROPHILS) 74 % (16-70); SCAN/DIFF FINAL DIFF MANUAL; WBC DIFF SAMPLE 100
[2017-08-19] MEDS: ACETAMINOPHEN/HYDROcodone 325 MG/5 MG TAB PO PRN ×3 (10:52→22:52)
--- NOTE | 2017-08-19 10:57 | HHI.PR ---
Subjective Remarks This is a pleasant 52 y/o Male admitted 08/03/17 with non healing left heel ulcer and sepsis He was diagnosed with gangrene and osteomyelitis of the left heel. 08/08/17 underwent a selective left lower extremity arteriogram with re-channeling of the left superficial femoral artery with balloon angioplasty and CSI arthrectomy. His Initial blood culture grew Strep Bovis, he will have Colonoscopy for next Monday08/21/17, developed right-sided weakness and slurred speech and was diagnosed with a left hemispheric nonhemorrhagic stroke and seen by neurology.He underwent left heel partial calcanectomy and left ankle I&D on August 09. He also underwent transesophageal echocardiography to rule out endocarditis and this was reportedly negative. The patient has been on antibiotics. He was also started on aspirin and Plavix because of his recent stroke. He is also on subQ heparin twice a day. 08/19: Seen in his bedroom and discussed with nurse, patient with status post Acute ischemic Stroke, left carotid artery occlusion, he is been followed by Neurology specialist, he was on Plavix and Aspirin previous to Stroke, recommended by Neurology to stop Plavix in view of endoscopy by GI specialist No new complaint awaiting for final recommendations by GI specialist today. Objective Vital Signs Date Time Temp Pulse Resp B/P (MAP) Pulse Ox O2 Delivery O2 Flow Rate FiO2 08/19/17 08:00 98.4 91 18 142/74 (96) 94 08/19/17 04:00 98.4 89 18 135/61 (85) 92 08/19/17 02:38 92 137/65 (89) 94 08/19/17 00:00 98.4 91 18 160/74 (102) 94 08/18/17 20:05 96 08/18/17 20:00 98.6 92 18 126/61 (82) 92 08/18/17 20:00 Room Air 08/18/17 16:00 97.7 91 20 152/70 (97) 94 08/18/17 11:56 98.0 93 20 139/67 (91) 98 I/O 08/18/17 08/18/17 08/18/17 08/19/17 08/19/17 08/19/17 06:59 14:59 22:59 06:59 14:59 22:59 Intake Total 100 ml 100 ml 600 ml Output Total 1800 ml 1000 ml 2300 ml 1000 ml Balance -1700 ml -900 ml -1700 ml -1000 ml Intake Oral 600 ml IV Total 100 ml 100 ml Output Urine Total 1800 ml 1000 ml 2300 ml 1000 ml # Bowel Movements 1 0 Result Diagram: 08/19/17 0540 08/19/17 0540 Imaging Last Impressions Head CT 08/15/17 Signed Impressions: Service Date/Time: Tuesday, August 15, 2017 19:02 - CONCLUSION: No new acute findings Jose Francisco Colon MD Head Magnetic Resonance Angiography 08/10/17 Signed Impressions: Service Date/Time: July 18:07 - CONCLUSION: Occluded left internal carotid artery. Based on today's ultrasound, this appears to be at the origin and is probably chronic. Associated slightly decreased filling of the left anterior and middle cerebral artery distributions relative to the right. No acute abnormality seen of the intracranial arteries. Jose Francisco Rodriguez MD Carotid Artery Ultrasound 08/10/17 Signed Impressions: Service Date/Time: July 12:29 - CONCLUSION: 1. Apparent occlusive non-calcified plaque and thrombus in the left internal carotid origin. 2. Mild, less than 50%%, stenosis of the right internal carotid artery secondary to calcified plaque extending from the carotid bulb. 3. Antegrade vertebral artery flow. Eder Biggs MD Brain MRI 08/10/17 Signed Impressions: Service Date/Time: July 18:07 - CONCLUSION: 1. Several small subacute left white matter subacute infarcts as above. No associated mass effect, bleed or midline shift. 2. Left parietal-occipital infarct appears old by MRI. Jose Francisco Rodriguez MD Foot X-Ray 08/09/17 Signed Impressions: Service Date/Time: Wednesday, August 09, 2017 18:57 - CONCLUSION: Large portion of the posterior calcaneus has been surgically resected. Remaining bone has a grossly normal radiographic appearance. Jose Francisco Rodriguez MD Lower Extremity Ultrasound 08/05/17 Signed Impressions: Service Date/Time: Saturday, August 05, 2017 18:13 - CONCLUSION: Negative exam with no evidence of deep venous thrombosis. Stone Sextno MD Aorta w/Runoff CTA 08/04/17 0000 Signed Impressions: Service Date/Time: Friday, August 04, 2017 19:29 - CONCLUSION: 1. Severe atherosclerotic disease. There is a focal short segment high-grade stenosis of the distal left superficial femoral artery. This stenosic segment measures approximately 1 cm in length and represents a change from the prior study. Remaining left lower extremity arterial vessels demonstrate no significant change from the prior exam. 2. Moderate narrowing of the proximal superior mesenteric artery secondary to noncalcified plaque. This finding is stable. 3. Small bilateral pleural effusions with associated compressive atelectasis. Jose Francisco Rogers MD Foot MRI 08/03/17 0000 Signed Impressions: Service Date/Time: July 19:20 - CONCLUSION: Large soft tissue ulcer of the heel and with a broad area of osteomyelitis of the posterior calcaneus. The Achilles tendon is ruptured at its insertion. No drainable abscess. Jose Francisco Rodriguez MD Procedures With Diagnosis of Left Heel gangrene, dry and stable, left heel osteomyelitis, Left heel Achilles rupture status post Left Heel partial Calcanectomy, Left ankle I and D. 08/08/17 With Diagnosis of Diabetic foot wound left lower extremity, status post Selective left lower extremity arteriogram. Rechanneling of left superficial femoral artery with balloon angioplasty of the left SFA and above-knee popliteal artery with a 5-mm x 40-mm balloon and then CSI atherectomy Other Results Laboratory Tests Test 08/03/17 17:37 08/05/17 07:17 08/10/17 20:17 08/11/17 00:45 Erythrocyte Sedimentation Rate 24 mm/hr Prothrombin Time 13.5 SEC Prothromb Time International Ratio 1.2 RATIO Activated Partial Thromboplast Time 25.6 SEC Lactic Acid Level 1.3 mmol/L C-Reactive Protein 9.20 MG/DL Free Thyroxine 0.93 NG/DL Thyroid Stimulating Hormone 3rd Gen 2.050 uIU/ML Vancomycin Level Trough 7.2 MCG/ML Hemoglobin A1c 9.7 % Urine Color LIGHT-YELLOW Urine Turbidity CLEAR Urine pH 6.5 Urine Specific [place] 1.008 Urine Protein 100 mg/dL Urine Glucose (UA) 70 mg/dL Urine Ketones NEG mg/dL Urine Occult Blood NEG Urine Nitrite NEG Urine Bilirubin NEG Urine Urobilinogen LESS THAN 2.0 MG/DL Urine Leukocyte Esterase NEG Urine Bacteria RARE /hpf Microscopic Urinalysis Comment CATH-CULTURE IND Test 08/11/17 02:18 08/11/17 07:44 08/12/17 06:22 08/14/17 08:25 Total Creatine Kinase 15 U/L Troponin I LESS THAN 0.02 NG/ML Triglycerides Level 182 MG/DL Cholesterol Level 173 MG/DL LDL Cholesterol 110 MG/DL HDL Cholesterol 26.8 MG/DL Cholesterol/HDL Ratio 6.45 RATIO Polychromasia 2.3 % Iron Level 23 MCG/DL Total Iron Binding Capacity 202 MCG/DL Percent Iron Saturation 11.4 % Ferritin 206 NG/ML Test 08/17/17 08:50 08/19/17 05:40 Neutrophils (%) (Auto) 73.3 % Lymphocytes (%) (Auto) 17.1 % Monocytes (%) (Auto) 5.2 % Eosinophils (%) (Auto) 3.2 % Basophils (%) (Auto) 1.2 % Neutrophils # (Auto) 14.4 TH/MM3 Lymphocytes # (Auto) 3.4 TH/MM3 Monocytes # (Auto) 1.0 TH/MM3 Eosinophils # (Auto) 0.6 TH/MM3 Basophils # (Auto) 0.2 TH/MM3 White Blood Count 19.7 TH/MM3 Red Blood Count 4.15 MIL/MM3 Hemoglobin 10.0 GM/DL Hematocrit 31.3 % Mean Corpuscular Volume 75.5 FL Mean Corpuscular Hemoglobin 24.2 PG Mean Corpuscular Hemoglobin Concent 32.0 % Red Cell Distribution Width 20.8 % Platelet Count 813 TH/MM3 Mean Platelet Volume 7.2 FL CBC Comment AUTO DIFF Differential Total Cells Counted 100 Neutrophils % (Manual) 74 % Band Neutrophils % 5 % Lymphocytes % 9 % Monocytes % 8 % Eosinophils % 2 % Basophils % 1 % Neutrophils # (Manual) 15.8 TH/MM3 Myelocytes 1 % Differential Comment FINAL DIFF MANUAL Platelet Estimate HIGH Platelet Morphology Comment NORMAL Ovalocytes 1+ Blood Urea Nitrogen 21 MG/DL Creatinine 0.77 MG/DL Random Glucose 111 MG/DL Total Protein 6.1 GM/DL Albumin 1.9 GM/DL Calcium Level 8.4 MG/DL Phosphorus Level 4.9 MG/DL Magnesium Level 2.2 MG/DL Alkaline Phosphatase 252 U/L Aspartate Amino Transf (AST/SGOT) 21 U/L Alanine Aminotransferase (ALT/SGPT) 37 U/L Total Bilirubin 0.1 MG/DL Sodium Level 137 MEQ/L Potassium Level 4.5 MEQ/L Chloride Level 102 MEQ/L Carbon Dioxide Level 26.4 MEQ/L Anion Gap 9 MEQ/L Estimat Glomerular Filtration Rate 106 ML/MIN Objective Remarks General: lying in bed, nad Respiratory: Lungs CTA, Non-labored respirations, BS equal, Coarse breath sounds Gastrointestinal: Positive Bowel Sounds, Non-Distended, Non-Tender Cardiovascular: Normal rate, Regular Rhythm Skin: palor improved. Musculoskeletal: Deformity (none) Psychiatric: Cooperative, Appropriate mood & affect Orientation: oriented to Self, oriented to Place, oriented to Time (with cues) , oriented to Situation Neurologic: Pupils (E RLA), EOM (intact with nystagmus), Facial Symmetry ( symmetric), Speech (clear with no word finding difficulties) Motor: Right Upper Extremity (4+/5), Left Upper Extremity (4+/5), Right Lower Extremity (4+/5), Left Lower Extremity (bandage in place and proximal strength is grossly intact) Medications and IVs Current Medications Medications (Trade) Dose Ordered Sig/Sumanth Route Start Time Stop Time Status Last Admin (D50w (Syr) Inj) 50 ml UNSCH PRN IV PUSH 08/03/17 19:30 (Glucagon Inj) 1 mg UNSCH PRN OTHER 08/03/17 19:30 (NovoLOG SUPPLEMENTAL SCALE) 1 ACHS SLIDING SCALE SQ 08/03/17 21:00 08/18/17 22:24 (Zofran Inj) 4 mg Q6H PRN IVP 08/03/17 19:30 08/03/17 21:08 (Heparin Inj) 5,000 units Q12H SQ 08/04/17 09:00 08/18/17 22:06 (Tylenol) 650 mg Q6H PRN PO 08/03/17 19:30 ([place] 5-325 Mg) 1 tab Q4H PRN PO 08/03/17 19:30 08/18/17 22:07 (Morphine Inj) 2 mg Q3H PRN IV PUSH 08/03/17 19:30 08/16/17 06:21 (Alanna-Colace) 1 tab BID PO 08/03/17 21:00 08/19/17 09:50 (Milk Of Magnesia Liq) 30 ml Q12H PRN PO 08/03/17 19:30 08/16/17 10:42 (Senokot) 17.2 mg Q12H PRN PO 08/03/17 19:30 (Dulcolax Supp) 10 mg DAILY PRN RECTAL 08/03/17 19:30 (Lactulose Liq) 30 ml DAILY PRN PO 08/03/17 19:30 08/16/17 12:53 (Plavix) 75 mg DAILY@1600 PO 08/04/17 16:00 08/18/17 16:22 (Neurontin) 600 mg QID PO 08/03/17 21:00 08/19/17 09:50 (Protonix) 40 mg DAILY@1600 PO 08/04/17 16:00 08/18/17 16:22 (Norvasc) 5 mg BID PO 08/05/17 14:15 08/19/17 09:50 (Catapres) 0.1 mg Q4H PRN PO 08/05/17 14:15 (Apresoline) 25 mg Q8HR PO 08/05/17 22:00 08/19/17 06:17 Ceftriaxone Sodium 2000 mg/ Sodium Chloride 100 ml @ 200 mls/hr Q24H IV 08/07/17 14:00 09/18/17 13:59 08/18/17 14:00 (Levemir Inj) 30 units BID SQ 08/08/17 21:00 08/19/17 09:54 (NS Flush) 2 ml BID IV FLUSH 08/10/17 21:00 08/18/17 22:08 (NS Flush) 2 ml UNSCH PRN IV FLUSH 08/10/17 12:45 (Proscar) 5 mg DAILY PO 08/11/17 16:00 08/19/17 09:50 (Aspirin Chew) 81 mg DAILY PO 08/12/17 09:00 08/18/17 09:36 (Lipitor) 40 mg DAILY PO 08/12/17 19:00 08/19/17 09:51 (Tylenol) 650 mg Q4H PRN PO 08/16/17 17:30 08/17/17 02:08 (Benadryl) 25 mg Q4H PRN PO 08/16/17 17:30 08/17/17 02:08 (Diflucan) 200 mg DAILY PO 08/17/17 09:00 08/19/17 09:50 (Miralax) 17 gm DAILY PO 08/18/17 11:30 08/19/17 09:51 A/P Assessment and Plan 1. Sepsis: Present admission, patient with a heart rate of 110, WBC 25.4 and source left heel ulcer. The patient was given IV vancomycin and Zosyn in the ER and blood cultures were obtained. The patient is growing Streptococcus Bovis. ID consulted. The patient currently on IV fluconazole and IV Rocephin. Patient is status post E which was negative. Continue antibiotics as per ID recommendations. 2. Osteomyelitis:Left Foot. X-ray w/ erosive changes along posterior calcaneus with possible avulsion injury, MRI Foot with large soft tissue ulcer heal and broad area of osteomyelitis of posterior calcaneus with rupture of Achilles tendon, images reviewed . S/p IV Abx as above, will continue. The patient is status post left partial calcaneal resection. Patient to begin wound VAC on 08/14/17. As per podiatry plan is to discharge early next week once okay to DC with wound VAC and PICC line. 3. Hyperkalemia: Mildly potassium 5.5. The patient is status post insulin and D50 in the ER. Hyperkalemia now resolved. Continue to monitor BMP. 4. Hypertension: Blood pressure seems to be stable. Continue amlodipine 5 mg by mouth daily. Patient on clonidine as needed for very elevated systolic blood pressure. 5. Left parietal/occipital stroke: Continue aspirin and Plavix. Patient with slurred speech on 08/14 and 08/15. Repeat CT scan of the brain on 08/15 did not show any acute disease. as per neurology okay to hold Plavix for Procedure for Monday. 6. Iron deficiency anemia. Iron studies concurrent with iron deficiency anemia , stool Hemoccult is negative. Patient had been seen by GI some admission and offered a colonoscopy. However the patient stated he did not feel ready at the time to undergo the colonic prep. The patient is now willing to have the colonoscopy, consulted GI. The patient possibly developed an allergic reaction to IV iron. I will place it as an allergy. 08/16 The patient is very pale looking and extremely tired. I believe the patient has symptoms due to his anemia. I will transfuse 1 unit of packed red blood cells today. 08/17 Much improved after 1 unit PRBC. PAtient less symptomatic from anemia. GI reconsulted there is no urgency for EGD/colonoscopy. Neurology to recommend guidance on aspirin and Plavix for GI procedure. / Possible EGD/colonoscopy For Next Monday. 7. Thrombocytosis: Likely reactive to iron deficiency anemia. Continue to monitor CBC and platelets. 8. Hyperlipidemia: Lipid profile showed an elevated triglycerides of 182, cholesterol 183, LDL cholesterol 110. Patient started on Lipitor. There are no reported side effects. 9. GI prophylaxis: Continue PPI. 10. DVT prophylaxis: Continue SCDs, No chemoprophylaxis given symptomatic anemia. Discharge Planning Continue to monitor in the medical floor. For EGD/colonoscopy on monday. Will need ID input regarding antibiotic management. Uriah Worrell MD Aug 19, 2017 10:57
[2017-08-19] MEDS: HEPARIN SODIUM - SQ 10,000 UNITS/ML VIAL SQ SCH ×2 (12:09→22:33)
[2017-08-19] MEDS: ASPIRIN 81 MG CHEW TAB PO SCH (12:10)
--- NOTE | 2017-08-19 12:23 | HHI.GIFU ---
GI Follow-up Note Consult Follow-up Subjective: Patient has 2 BMs charted yesterday. No new complaints. Feels well. Neuro consult appreciated- "OK to hold plavix but continue heparin". Objective: PHYSICAL EXAMINATION: Vitals signs stable No fever ABDOMEN: Soft, nondistended, nontender Available Data (labs, X- Rays, Procedues) : Hgb up to 10.0 ASSESSMENT/PLAN: 1. Anemia-improving. Last stool hemoccult negative. 2. Chronic dysphagia 3. Recent Strept Bovis bacteremia Since got the ok to hold his Plavix will reschedule his GI procedures out to mid week. With Plavix held will be able to dilate esophagus and perform polypectomies. Continue ASA and heparin. I discussed this with pt. If he needs to be transferred to a rehab facility can still bring him back for procedures as outpt. It was a pleasure seeing Adilson Lehman. Thank you for this consult. Entered by: Manuel Estrada MD Aug 19, 2017 12:23
[2017-08-19] MEDS: cefTRIAXone INJ 2,000 MG in SODIUM CHLORIDE 0.9% INJ 100 ML IV SCH (13:51)
[2017-08-19] MEDS: PANTOPRAZOLE SOD 40 MG DELAYED RELEASE TAB PO SCH (19:24)
[2017-08-20] VITALS: BP 151/70; PULSE 94; RESP 20; TEMP 97.3; O2SAT 93
[2017-08-20 04:00] VITALS: BP 128/89; PULSE 88; RESP 20; TEMP 97.4; O2SAT 95
[2017-08-20] MEDS: hydrALAZINE HCL 25 MG TAB PO SCH ×3 (06:33→22:49)
[2017-08-20] MEDS: ACETAMINOPHEN/HYDROcodone 325 MG/5 MG TAB PO PRN ×4 (06:33→22:50)
[2017-08-20 08:00] VITALS: BP 129/61; PULSE 84; RESP 18; TEMP 97.6; O2SAT 95
[2017-08-20] MEDS: INSULIN ASPART SUPPLEMENTAL SCALE SQ SCH ×4 (08:00→21:00)
[2017-08-20] MEDS: ASPIRIN 81 MG CHEW TAB PO SCH (08:46)
[2017-08-20] MEDS: FLUCONAZOLE 200 MG TAB PO SCH (08:46)
[2017-08-20] MEDS: amLODIPine BESYLATE 5 MG TAB PO SCH ×2 (08:46→22:50)
[2017-08-20] MEDS: FINASTERIDE 5 MG TAB PO SCH (08:46)
[2017-08-20] MEDS: INSULIN DETEMIR 100 UNITS/ML VIAL SQ SCH ×2 (08:47→21:00)
[2017-08-20] MEDS: POLYETHYLENE GLYCOL 17 GM PKG PO SCH (08:47)
[2017-08-20] MEDS: GABAPENTIN 300 MG CAP PO SCH ×4 (08:47→22:49)
[2017-08-20] MEDS: SODIUM CHLORIDE 0.9% FLUSH 5 ML FLUSH IV FLUSH SCH ×2 (08:47→21:00)
[2017-08-20] MEDS: DOCUSATE SODIUM 50 MG/SENNA 8.6 MG TAB PO SCH ×2 (08:47→22:50)
[2017-08-20] MEDS: ATORVASTATIN 40 MG TAB PO SCH (08:47)
[2017-08-20] MEDS: HEPARIN SODIUM - SQ 10,000 UNITS/ML VIAL SQ SCH ×2 (08:48→22:50)
--- NOTE | 2017-08-20 11:21 | HHI.PR ---
Review/Management Diagnosis Acute ischemic stroke Left Carotid artery occlusion Diagnosis/Plan: (1) Acute ischemic left MCA stroke ICD Codes: I63.512 - Cerebral infarction due to unspecified occlusion or stenosis of left middle cerebral artery Status: Acute Plan: left ica occlusion was on plavix/aspirin prior to stroke recs bp stable neuro stable told pt to do light p.t in bed ok to stop plavix and continue aspirin for gi procedure and resume thereafter- as per Dr Christian avoid HYPOTENSION with left carotid occlusion d/w rn (2) Left carotid artery occlusion ICD Codes: I65.22 - Occlusion and stenosis of left carotid artery Status: Chronic (3) HTN (hypertension) ICD Codes: I10 - Essential (primary) hypertension Status: Chronic (4) DM (diabetes mellitus) ICD Codes: E11.9 - Type 2 diabetes mellitus without complications Status: Chronic Subjective Subjective Comments No acute events reported No headache No chest pain No dyspnea Active Medications Current Medications Medications (Trade) Dose Ordered Sig/Sumanth Route Start Time Stop Time Status Last Admin (D50w (Syr) Inj) 50 ml UNSCH PRN IV PUSH 08/03/17 19:30 (Glucagon Inj) 1 mg UNSCH PRN OTHER 08/03/17 19:30 (NovoLOG SUPPLEMENTAL SCALE) 1 ACHS SLIDING SCALE SQ 08/03/17 21:00 08/19/17 22:36 (Zofran Inj) 4 mg Q6H PRN IVP 08/03/17 19:30 08/03/17 21:08 (Heparin Inj) 5,000 units Q12H SQ 08/04/17 09:00 08/20/17 08:48 (Tylenol) 650 mg Q6H PRN PO 08/03/17 19:30 (Sebago 5-325 Mg) 1 tab Q4H PRN PO 08/03/17 19:30 08/20/17 06:33 (Morphine Inj) 2 mg Q3H PRN IV PUSH 08/03/17 19:30 08/16/17 06:21 (Alanna-Colace) 1 tab BID PO 08/03/17 21:00 08/20/17 08:47 (Milk Of Magnesia Liq) 30 ml Q12H PRN PO 08/03/17 19:30 08/16/17 10:42 (Senokot) 17.2 mg Q12H PRN PO 08/03/17 19:30 (Dulcolax Supp) 10 mg DAILY PRN RECTAL 08/03/17 19:30 (Lactulose Liq) 30 ml DAILY PRN PO 08/03/17 19:30 08/16/17 12:53 (Neurontin) 600 mg QID PO 08/03/17 21:00 08/20/17 08:47 (Protonix) 40 mg DAILY@1600 PO 08/04/17 16:00 08/19/17 19:24 (Norvasc) 5 mg BID PO 08/05/17 14:15 08/20/17 08:46 (Catapres) 0.1 mg Q4H PRN PO 08/05/17 14:15 (Apresoline) 25 mg Q8HR PO 08/05/17 22:00 08/20/17 06:33 Ceftriaxone Sodium 2000 mg/ Sodium Chloride 100 ml @ 200 mls/hr Q24H IV 08/07/17 14:00 09/18/17 13:59 08/19/17 13:51 (Levemir Inj) 30 units BID SQ 08/08/17 21:00 08/19/17 22:36 (NS Flush) 2 ml BID IV FLUSH 08/10/17 21:00 08/20/17 08:47 (NS Flush) 2 ml UNSCH PRN IV FLUSH 08/10/17 12:45 (Proscar) 5 mg DAILY PO 08/11/17 16:00 08/20/17 08:46 (Aspirin Chew) 81 mg DAILY PO 08/12/17 09:00 08/20/17 08:46 (Lipitor) 40 mg DAILY PO 08/12/17 19:00 08/20/17 08:47 (Tylenol) 650 mg Q4H PRN PO 08/16/17 17:30 08/17/17 02:08 (Benadryl) 25 mg Q4H PRN PO 08/16/17 17:30 08/17/17 02:08 (Diflucan) 200 mg DAILY PO 08/17/17 09:00 08/20/17 08:46 (Miralax) 17 gm DAILY PO 08/18/17 11:30 08/20/17 08:47 Allergies Allergies Coded Allergies *MDRO Multi-Drug Resistant Organism (Verified Adverse Reaction, Unknown, ) Review of Systems All other ROS: ROS reviewed as documented in chart Exam I&O / VS Vital Signs Date Time Temp Pulse Resp B/P (MAP) Pulse Ox O2 Delivery O2 Flow Rate FiO2 08/20/17 08:00 97.6 84 18 129/61 (83) 95 08/20/17 04:00 97.4 88 20 128/89 (102) 95 08/20/17 00:00 97.3 94 20 151/70 (97) 93 08/19/17 22:36 12 08/19/17 20:00 Room Air 08/19/17 20:00 97.2 98 20 140/68 (92) 94 08/19/17 16:00 98.7 99 18 152/70 (97) 95 08/19/17 12:00 98.5 97 18 150/69 (96) 94 General: Alert and Oriented, No acute distress Eye: Vision unchanged Cardiology: Normal rate (Mild tachycardia) Neurologic: Alert, Oriented, Other (unchanged) Psychiatric: Cooperative, Appropriate mood & affect Exam Comments ox 3, follows, pleasant, ou rt>left vision loss- chronic, rt gaze nystagmus, mild rt hemiparesis 5-/5, left le bandaged Objective Micro and Labs Date/Time Source Procedure Growth Status 08/06/17 11:20 Blood Peripheral Aerobic Blood Culture - Final NO GROWTH IN 5 DAYS Complete 08/06/17 11:20 Blood Peripheral Anaerobic Blood Culture - Final NO GROWTH IN 5 DAYS Complete 08/15/17 13:35 Stool Stool Stool Occult Blood (ABHISHEK) - Final HEMOCCULT NEGATIVE Complete 08/11/17 00:45 Urine Catheterized Urine Urine Culture - Final NO GROWTH IN 48 HOURS. Complete 08/09/17 18:57 Wound Heel Fungal Smear - Final NO FUNGAL ELEMENTS SEEN. Resulted 08/09/17 18:57 Fungal Culture - Preliminary Crystal Tropicalis Resulted Problem Qualifiers (1) HTN (hypertension): Qualified Codes: I10 - Essential (primary) hypertension (2) DM (diabetes mellitus): Cristino Moran MD Aug 20, 2017 11:21
[2017-08-20 12:00] VITALS: PULSE 94; RESP 18; TEMP 97.4; O2SAT 95
--- NOTE | 2017-08-20 13:33 | HHI.PR ---
Subjective Remarks This is a pleasant 52 y/o Male admitted 08/03/17 with non healing left heel ulcer and sepsis He was diagnosed with gangrene and osteomyelitis of the left heel. 08/08/17 underwent a selective left lower extremity arteriogram with re-channeling of the left superficial femoral artery with balloon angioplasty and CSI arthrectomy. His Initial blood culture grew Strep Bovis, he will have Colonoscopy for next Monday08/21/17, developed right-sided weakness and slurred speech and was diagnosed with a left hemispheric nonhemorrhagic stroke and seen by neurology.He underwent left heel partial calcanectomy and left ankle I&D on August 09. He also underwent transesophageal echocardiography to rule out endocarditis and this was reportedly negative. The patient has been on antibiotics. He was also started on aspirin and Plavix because of his recent stroke. He is also on subQ heparin twice a day. 08/20: No changes to anterior assessment stable in his bedroom, no new issues. no nausea, vomit or diarrhea will have Endoscopy tomorrow. Objective Vital Signs Date Time Temp Pulse Resp B/P (MAP) Pulse Ox O2 Delivery O2 Flow Rate FiO2 08/20/17 08:00 97.6 84 18 129/61 (83) 95 08/20/17 04:00 97.4 88 20 128/89 (102) 95 08/20/17 00:00 97.3 94 20 151/70 (97) 93 08/19/17 22:36 12 08/19/17 20:00 Room Air 08/19/17 20:00 97.2 98 20 140/68 (92) 94 08/19/17 16:00 98.7 99 18 152/70 (97) 95 I/O 08/19/17 08/19/17 08/19/17 08/20/17 08/20/17 08/20/17 07:00 15:00 23:00 07:00 15:00 23:00 Intake Total 360 ml 360 ml Output Total 1000 ml 1295 ml 1400 ml 1100 ml Balance -1000 ml -1295 ml -1040 ml -740 ml Intake Oral 360 ml 360 ml Output Urine Total 1000 ml 1295 ml 1400 ml 1100 ml # Voids 2 # Bowel Movements 1 Result Diagram: 08/19/17 0540 08/19/17 0540 Imaging Last Impressions Head CT 10/3/17 0000 Signed Impressions: Service Date/Time: Tuesday, August 15, 2017 19:02 - CONCLUSION: No new acute findings Jose Francisco Colon MD Head Magnetic Resonance Angiography 08/10/17 Signed Impressions: Service Date/Time: July 18:07 - CONCLUSION: Occluded left internal carotid artery. Based on today's ultrasound, this appears to be at the origin and is probably chronic. Associated slightly decreased filling of the left anterior and middle cerebral artery distributions relative to the right. No acute abnormality seen of the intracranial arteries. Jose Francisco Rodriguez MD Carotid Artery Ultrasound 08/10/17 Signed Impressions: Service Date/Time: July 12:29 - CONCLUSION: 1. Apparent occlusive non-calcified plaque and thrombus in the left internal carotid origin. 2. Mild, less than 50%%, stenosis of the right internal carotid artery secondary to calcified plaque extending from the carotid bulb. 3. Antegrade vertebral artery flow. Eder Biggs MD Brain MRI 08/10/17 Signed Impressions: Service Date/Time: July 18:07 - CONCLUSION: 1. Several small subacute left white matter subacute infarcts as above. No associated mass effect, bleed or midline shift. 2. Left parietal-occipital infarct appears old by MRI. Jose Francisco Rodriguez MD Foot X-Ray 08/09/17 Signed Impressions: Service Date/Time: Wednesday, August 09, 2017 18:57 - CONCLUSION: Large portion of the posterior calcaneus has been surgically resected. Remaining bone has a grossly normal radiographic appearance. Jose Francisco Rodriguez MD Lower Extremity Ultrasound 08/05/17 Signed Impressions: Service Date/Time: Saturday, August 05, 2017 18:13 - CONCLUSION: Negative exam with no evidence of deep venous thrombosis. Stone Sexton MD Aorta w/Runoff CTA 08/04/17 Signed Impressions: Service Date/Time: Friday, August 04, 2017 19:29 - CONCLUSION: 1. Severe atherosclerotic disease. There is a focal short segment high-grade stenosis of the distal left superficial femoral artery. This stenosic segment measures approximately 1 cm in length and represents a change from the prior study. Remaining left lower extremity arterial vessels demonstrate no significant change from the prior exam. 2. Moderate narrowing of the proximal superior mesenteric artery secondary to noncalcified plaque. This finding is stable. 3. Small bilateral pleural effusions with associated compressive atelectasis. Jose Francisco Rogers MD Foot MRI 08/03/17 0000 Signed Impressions: Service Date/Time: July 19:20 - CONCLUSION: Large soft tissue ulcer of the heel and with a broad area of osteomyelitis of the posterior calcaneus. The Achilles tendon is ruptured at its insertion. No drainable abscess. Jose Francisco Rodriguez MD Procedures With Diagnosis of Left Heel gangrene, dry and stable, left heel osteomyelitis, Left heel Achilles rupture status post Left Heel partial Calcanectomy, Left ankle I and D. 08/08/17 With Diagnosis of Diabetic foot wound left lower extremity, status post Selective left lower extremity arteriogram. Rechanneling of left superficial femoral artery with balloon angioplasty of the left SFA and above-knee popliteal artery with a 5-mm x 40-mm balloon and then CSI atherectomy Other Results Laboratory Tests Test 08/03/17 17:37 08/05/17 07:17 08/10/17 20:17 08/11/17 00:45 Erythrocyte Sedimentation Rate 24 mm/hr Prothrombin Time 13.5 SEC Prothromb Time International Ratio 1.2 RATIO Activated Partial Thromboplast Time 25.6 SEC Lactic Acid Level 1.3 mmol/L C-Reactive Protein 9.20 MG/DL Free Thyroxine 0.93 NG/DL Thyroid Stimulating Hormone 3rd Gen 2.050 uIU/ML Vancomycin Level Trough 7.2 MCG/ML Hemoglobin A1c 9.7 % Urine Color LIGHT-YELLOW Urine Turbidity CLEAR Urine pH 6.5 Urine Specific Halma 1.008 Urine Protein 100 mg/dL Urine Glucose (UA) 70 mg/dL Urine Ketones NEG mg/dL Urine Occult Blood NEG Urine Nitrite NEG Urine Bilirubin NEG Urine Urobilinogen LESS THAN 2.0 MG/DL Urine Leukocyte Esterase NEG Urine Bacteria RARE /hpf Microscopic Urinalysis Comment CATH-CULTURE IND Test 08/11/17 02:18 08/11/17 07:44 08/12/17 06:22 08/14/17 08:25 Total Creatine Kinase 15 U/L Troponin I LESS THAN 0.02 NG/ML Triglycerides Level 182 MG/DL Cholesterol Level 173 MG/DL LDL Cholesterol 110 MG/DL HDL Cholesterol 26.8 MG/DL Cholesterol/HDL Ratio 6.45 RATIO Polychromasia 2.3 % Iron Level 23 MCG/DL Total Iron Binding Capacity 202 MCG/DL Percent Iron Saturation 11.4 % Ferritin 206 NG/ML Test 08/17/17 08:50 08/19/17 05:40 Neutrophils (%) (Auto) 73.3 % Lymphocytes (%) (Auto) 17.1 % Monocytes (%) (Auto) 5.2 % Eosinophils (%) (Auto) 3.2 % Basophils (%) (Auto) 1.2 % Neutrophils # (Auto) 14.4 TH/MM3 Lymphocytes # (Auto) 3.4 TH/MM3 Monocytes # (Auto) 1.0 TH/MM3 Eosinophils # (Auto) 0.6 TH/MM3 Basophils # (Auto) 0.2 TH/MM3 White Blood Count 19.7 TH/MM3 Red Blood Count 4.15 MIL/MM3 Hemoglobin 10.0 GM/DL Hematocrit 31.3 % Mean Corpuscular Volume 75.5 FL Mean Corpuscular Hemoglobin 24.2 PG Mean Corpuscular Hemoglobin Concent 32.0 % Red Cell Distribution Width 20.8 % Platelet Count 813 TH/MM3 Mean Platelet Volume 7.2 FL CBC Comment AUTO DIFF Differential Total Cells Counted 100 Neutrophils % (Manual) 74 % Band Neutrophils % 5 % Lymphocytes % 9 % Monocytes % 8 % Eosinophils % 2 % Basophils % 1 % Neutrophils # (Manual) 15.8 TH/MM3 Myelocytes 1 % Differential Comment FINAL DIFF MANUAL Platelet Estimate HIGH Platelet Morphology Comment NORMAL Ovalocytes 1+ Blood Urea Nitrogen 21 MG/DL Creatinine 0.77 MG/DL Random Glucose 111 MG/DL Total Protein 6.1 GM/DL Albumin 1.9 GM/DL Calcium Level 8.4 MG/DL Phosphorus Level 4.9 MG/DL Magnesium Level 2.2 MG/DL Alkaline Phosphatase 252 U/L Aspartate Amino Transf (AST/SGOT) 21 U/L Alanine Aminotransferase (ALT/SGPT) 37 U/L Total Bilirubin 0.1 MG/DL Sodium Level 137 MEQ/L Potassium Level 4.5 MEQ/L Chloride Level 102 MEQ/L Carbon Dioxide Level 26.4 MEQ/L Anion Gap 9 MEQ/L Estimat Glomerular Filtration Rate 106 ML/MIN Objective Remarks General: lying in bed, nad Respiratory: Lungs CTA, Non-labored respirations, BS equal, Coarse breath sounds Gastrointestinal: Positive Bowel Sounds, Non-Distended, Non-Tender Cardiovascular: Normal rate, Regular Rhythm Skin: palor improved. Musculoskeletal: Deformity (none) Psychiatric: Cooperative, Appropriate mood & affect Orientation: oriented to Self, oriented to Place, oriented to Time (with cues) , oriented to Situation Neurologic: Pupils (E RLA), EOM (intact with nystagmus), Facial Symmetry ( symmetric), Speech (clear with no word finding difficulties) Motor: Right Upper Extremity (4+/5), Left Upper Extremity (4+/5), Right Lower Extremity (4+/5), Left Lower Extremity (bandage in place and proximal strength is grossly intact) Medications and IVs Current Medications Medications (Trade) Dose Ordered Sig/Sumanth Route Start Time Stop Time Status Last Admin (D50w (Syr) Inj) 50 ml UNSCH PRN IV PUSH 08/03/17 19:30 (Glucagon Inj) 1 mg UNSCH PRN OTHER 08/03/17 19:30 (NovoLOG SUPPLEMENTAL SCALE) 1 ACHS SLIDING SCALE SQ 08/03/17 21:00 08/19/17 22:36 (Zofran Inj) 4 mg Q6H PRN IVP 08/03/17 19:30 08/03/17 21:08 (Heparin Inj) 5,000 units Q12H SQ 08/04/17 09:00 08/20/17 08:48 (Tylenol) 650 mg Q6H PRN PO 08/03/17 19:30 (Dingle 5-325 Mg) 1 tab Q4H PRN PO 08/03/17 19:30 08/20/17 11:34 (Morphine Inj) 2 mg Q3H PRN IV PUSH 08/03/17 19:30 08/16/17 06:21 (Alanna-Colace) 1 tab BID PO 08/03/17 21:00 08/20/17 08:47 (Milk Of Magnesia Liq) 30 ml Q12H PRN PO 08/03/17 19:30 08/16/17 10:42 (Senokot) 17.2 mg Q12H PRN PO 08/03/17 19:30 (Dulcolax Supp) 10 mg DAILY PRN RECTAL 08/03/17 19:30 (Lactulose Liq) 30 ml DAILY PRN PO 08/03/17 19:30 08/16/17 12:53 (Neurontin) 600 mg QID PO 08/03/17 21:00 08/20/17 08:47 (Protonix) 40 mg DAILY@1600 PO 08/04/17 16:00 08/19/17 19:24 (Norvasc) 5 mg BID PO 08/05/17 14:15 08/20/17 08:46 (Catapres) 0.1 mg Q4H PRN PO 08/05/17 14:15 (Apresoline) 25 mg Q8HR PO 08/05/17 22:00 08/20/17 06:33 Ceftriaxone Sodium 2000 mg/ Sodium Chloride 100 ml @ 200 mls/hr Q24H IV 08/07/17 14:00 09/18/17 13:59 08/19/17 13:51 (Levemir Inj) 30 units BID SQ 08/08/17 21:00 08/19/17 22:36 (NS Flush) 2 ml BID IV FLUSH 08/10/17 21:00 08/20/17 08:47 (NS Flush) 2 ml UNSCH PRN IV FLUSH 08/10/17 12:45 (Proscar) 5 mg DAILY PO 08/11/17 16:00 08/20/17 08:46 (Aspirin Chew) 81 mg DAILY PO 08/12/17 09:00 08/20/17 08:46 (Lipitor) 40 mg DAILY PO 08/12/17 19:00 08/20/17 08:47 (Tylenol) 650 mg Q4H PRN PO 08/16/17 17:30 08/17/17 02:08 (Benadryl) 25 mg Q4H PRN PO 08/16/17 17:30 08/17/17 02:08 (Diflucan) 200 mg DAILY PO 08/17/17 09:00 08/20/17 08:46 (Miralax) 17 gm DAILY PO 08/18/17 11:30 08/20/17 08:47 A/P Assessment and Plan 1. Sepsis: Present admission, patient with a heart rate of 110, WBC 25.4 and source left heel ulcer. The patient was given IV vancomycin and Zosyn in the ER and blood cultures were obtained. The patient is growing Streptococcus Bovis. ID consulted. The patient currently on IV fluconazole and IV Rocephin. Patient is status post E which was negative. Continue antibiotics as per ID recommendations. 2. Osteomyelitis:Left Foot. X-ray w/ erosive changes along posterior calcaneus with possible avulsion injury, MRI Foot with large soft tissue ulcer heal and broad area of osteomyelitis of posterior calcaneus with rupture of Achilles tendon, images reviewed . S/p IV Abx as above, will continue. The patient is status post left partial calcaneal resection. Patient to begin wound VAC on 08/14/17. As per podiatry plan is to discharge early next week once okay to DC with wound VAC and PICC line. 3. Hyperkalemia: Mildly potassium 5.5. The patient is status post insulin and D50 in the ER. Hyperkalemia now resolved. Continue to monitor BMP. 4. Hypertension: Blood pressure seems to be stable. Continue amlodipine 5 mg by mouth daily. Patient on clonidine as needed for very elevated systolic blood pressure. 5. Left parietal/occipital stroke: Continue aspirin and Plavix. Patient with slurred speech on 08/14 and 08/15. Repeat CT scan of the brain on 08/15 did not show any acute disease. 6. Iron deficiency anemia. Iron studies concurrent with iron deficiency anemia , stool Hemoccult is negative. Patient had been seen by GI some admission and offered a colonoscopy. However the patient stated he did not feel ready at the time to undergo the colonic prep. The patient is now willing to have the colonoscopy, consulted GI. The patient possibly developed an allergic reaction to IV iron. I will place it as an allergy. 08/16 The patient is very pale looking and extremely tired. I believe the patient has symptoms due to his anemia. I will transfuse 1 unit of packed red blood cells today. 08/17 Much improved after 1 unit PRBC. PAtient less symptomatic from anemia. GI reconsulted there is no urgency for EGD/colonoscopy. Neurology to recommend guidance on aspirin and Plavix for GI procedure. 08/18 Possible EGD/colonoscopy on Monday. 7. Thrombocytosis: Likely reactive to iron deficiency anemia. Continue to monitor CBC and platelets. 8. Hyperlipidemia: Lipid profile showed an elevated triglycerides of 182, cholesterol 183, LDL cholesterol 110. Patient started on Lipitor. There are no reported side effects. 9. GI prophylaxis: Continue PPI. 10. DVT prophylaxis: Continue SCDs, No chemoprophylaxis given symptomatic anemia. Discharge Planning Continue to monitor in the medical floor. For EGD/colonoscopy on monday. Will need ID input regarding antibiotic management. Uriah Worrell MD Aug 20, 2017 13:33
[2017-08-20] MEDS: cefTRIAXone INJ 2,000 MG in SODIUM CHLORIDE 0.9% INJ 100 ML IV SCH (15:17)
[2017-08-20 16:00] VITALS: BP 140/72; PULSE 94; RESP 18; TEMP 97.5; O2SAT 94
[2017-08-20] MEDS: PANTOPRAZOLE SOD 40 MG DELAYED RELEASE TAB PO SCH (17:36)
[2017-08-20 20:00] VITALS: BP 140/65; PULSE 95; RESP 18; TEMP 97.7; O2SAT 94
[2017-08-21] VITALS (7 sets, daily range): BP systolic 110–143; BP diastolic 69–76; PULSE 74–97; RESP 18–20; TEMP 96.1–98.4; O2SAT 2–96
[2017-08-21] MEDS: hydrALAZINE HCL 25 MG TAB PO SCH ×3 (04:52→20:56)
[2017-08-21] MEDS: ACETAMINOPHEN/HYDROcodone 325 MG/5 MG TAB PO PRN ×4 (04:53→20:57)
[2017-08-21] MEDS: INSULIN ASPART SUPPLEMENTAL SCALE SQ SCH ×4 (08:00→20:56)
[2017-08-21] MEDS: SODIUM CHLORIDE 0.9% FLUSH 5 ML FLUSH IV FLUSH SCH ×2 (09:00→20:57)
[2017-08-21] MEDS: amLODIPine BESYLATE 5 MG TAB PO SCH ×2 (10:03→20:56)
[2017-08-21] MEDS: ASPIRIN 81 MG CHEW TAB PO SCH (10:03)
[2017-08-21] MEDS: FLUCONAZOLE 200 MG TAB PO SCH (10:04)
[2017-08-21] MEDS: DOCUSATE SODIUM 50 MG/SENNA 8.6 MG TAB PO SCH ×2 (10:04→20:55)
[2017-08-21] MEDS: ATORVASTATIN 40 MG TAB PO SCH (10:04)
[2017-08-21] MEDS: FINASTERIDE 5 MG TAB PO SCH (10:05)
[2017-08-21] MEDS: HEPARIN SODIUM - SQ 10,000 UNITS/ML VIAL SQ SCH ×2 (10:05→20:56)
[2017-08-21] MEDS: GABAPENTIN 300 MG CAP PO SCH ×4 (10:05→20:55)
[2017-08-21] MEDS: POLYETHYLENE GLYCOL 17 GM PKG PO SCH (10:05)
[2017-08-21] MEDS: INSULIN DETEMIR 100 UNITS/ML VIAL SQ SCH ×2 (10:06→20:56)
[2017-08-21] MEDS: cefTRIAXone INJ 2,000 MG in SODIUM CHLORIDE 0.9% INJ 100 ML IV SCH (12:51)
--- NOTE | 2017-08-21 15:56 | HHI.PR ---
Subjective Remarks This is a pleasant 52 y/o Male admitted 08/03/17 with non healing left heel ulcer and sepsis He was diagnosed with gangrene and osteomyelitis of the left heel. 08/08/17 underwent a selective left lower extremity arteriogram with re-channeling of the left superficial femoral artery with balloon angioplasty and CSI arthrectomy. His Initial blood culture grew Strep Bovis, he will have Colonoscopy for next Monday08/21/17, developed right-sided weakness and slurred speech and was diagnosed with a left hemispheric nonhemorrhagic stroke and seen by neurology.He underwent left heel partial calcanectomy and left ankle I&D on August 09. He also underwent transesophageal echocardiography to rule out endocarditis and this was reportedly negative. The patient has been on antibiotics. He was also started on aspirin and Plavix because of his recent stroke. He is also on subQ heparin twice a day. 08/21:Seen in his bedroom and discussed with nurse, may have procedure later today, no nausea, vomit or diarrhea. Objective Vital Signs Date Time Temp Pulse Resp B/P (MAP) Pulse Ox O2 Delivery O2 Flow Rate FiO2 08/21/17 11:52 96.1 93 20 117/75 (89) 96 08/21/17 08:00 90 08/21/17 08:00 Room Air 08/21/17 07:46 97.2 74 20 110/70 (83) 95 08/21/17 04:00 98.4 97 18 141/70 (93) 94 08/21/17 00:00 98.4 94 18 2 08/20/17 20:00 97.7 95 18 140/65 (90) 94 08/20/17 16:00 97.5 94 18 140/72 (94) 94 I/O 08/20/17 08/20/17 08/20/17 08/21/17 08/21/17 08/21/17 07:00 15:00 23:00 07:00 15:00 23:00 Intake Total 360 ml 580 ml Output Total 1100 ml 1300 ml 1000 ml Balance -740 ml -720 ml -1000 ml Intake Oral 360 ml 480 ml IV Total 100 ml Output Urine Total 1100 ml 1300 ml 1000 ml # Bowel Movements 0 Result Diagram: 08/19/17 0540 08/19/17 0540 Imaging Last Impressions Head CT 08/15/17 0000 Signed Impressions: Service Date/Time: Tuesday, August 15, 2017 19:02 - CONCLUSION: No new acute findings Jose Francisco Colon MD Head Magnetic Resonance Angiography 08/10/17 Signed Impressions: Service Date/Time: July 18:07 - CONCLUSION: Occluded left internal carotid artery. Based on today's ultrasound, this appears to be at the origin and is probably chronic. Associated slightly decreased filling of the left anterior and middle cerebral artery distributions relative to the right. No acute abnormality seen of the intracranial arteries. Jose Francisco Rodriguez MD Carotid Artery Ultrasound 08/10/17 Signed Impressions: Service Date/Time: July 12:29 - CONCLUSION: 1. Apparent occlusive non-calcified plaque and thrombus in the left internal carotid origin. 2. Mild, less than 50%%, stenosis of the right internal carotid artery secondary to calcified plaque extending from the carotid bulb. 3. Antegrade vertebral artery flow. Eder Biggs MD Brain MRI 08/10/17 Signed Impressions: Service Date/Time: July 18:07 - CONCLUSION: 1. Several small subacute left white matter subacute infarcts as above. No associated mass effect, bleed or midline shift. 2. Left parietal-occipital infarct appears old by MRI. Jose Francisco Rodriguez MD Foot X-Ray 08/09/17 Signed Impressions: Service Date/Time: Wednesday, August 09, 2017 18:57 - CONCLUSION: Large portion of the posterior calcaneus has been surgically resected. Remaining bone has a grossly normal radiographic appearance. Jose Francisco Rodriguez MD Lower Extremity Ultrasound 08/05/17 0000 Signed Impressions: Service Date/Time: Saturday, August 05, 2017 18:13 - CONCLUSION: Negative exam with no evidence of deep venous thrombosis. Stone Sexton MD Aorta w/Runoff CTA 08/04/17 0000 Signed Impressions: Service Date/Time: Friday, August 04, 2017 19:29 - CONCLUSION: 1. Severe atherosclerotic disease. There is a focal short segment high-grade stenosis of the distal left superficial femoral artery. This stenosic segment measures approximately 1 cm in length and represents a change from the prior study. Remaining left lower extremity arterial vessels demonstrate no significant change from the prior exam. 2. Moderate narrowing of the proximal superior mesenteric artery secondary to noncalcified plaque. This finding is stable. 3. Small bilateral pleural effusions with associated compressive atelectasis. Jose Francisco Rogers MD Foot MRI 08/03/17 0000 Signed Impressions: Service Date/Time: July 19:20 - CONCLUSION: Large soft tissue ulcer of the heel and with a broad area of osteomyelitis of the posterior calcaneus. The Achilles tendon is ruptured at its insertion. No drainable abscess. Jose Francisco Rodriguez MD Procedures With Diagnosis of Left Heel gangrene, dry and stable, left heel osteomyelitis, Left heel Achilles rupture status post Left Heel partial Calcanectomy, Left ankle I and D. 08/08/17 With Diagnosis of Diabetic foot wound left lower extremity, status post Selective left lower extremity arteriogram. Rechanneling of left superficial femoral artery with balloon angioplasty of the left SFA and above-knee popliteal artery with a 5-mm x 40-mm balloon and then CSI atherectomy Other Results Laboratory Tests Test 08/03/17 17:37 08/05/17 07:17 08/10/17 20:17 08/11/17 00:45 Erythrocyte Sedimentation Rate 24 mm/hr Prothrombin Time 13.5 SEC Prothromb Time International Ratio 1.2 RATIO Activated Partial Thromboplast Time 25.6 SEC Lactic Acid Level 1.3 mmol/L C-Reactive Protein 9.20 MG/DL Free Thyroxine 0.93 NG/DL Thyroid Stimulating Hormone 3rd Gen 2.050 uIU/ML Vancomycin Level Trough 7.2 MCG/ML Hemoglobin A1c 9.7 % Urine Color LIGHT-YELLOW Urine Turbidity CLEAR Urine pH 6.5 Urine Specific [place] 1.008 Urine Protein 100 mg/dL Urine Glucose (UA) 70 mg/dL Urine Ketones NEG mg/dL Urine Occult Blood NEG Urine Nitrite NEG Urine Bilirubin NEG Urine Urobilinogen LESS THAN 2.0 MG/DL Urine Leukocyte Esterase NEG Urine Bacteria RARE /hpf Microscopic Urinalysis Comment CATH-CULTURE IND Test 08/11/17 02:18 08/11/17 07:44 08/12/17 06:22 08/14/17 08:25 Total Creatine Kinase 15 U/L Troponin I LESS THAN 0.02 NG/ML Triglycerides Level 182 MG/DL Cholesterol Level 173 MG/DL LDL Cholesterol 110 MG/DL HDL Cholesterol 26.8 MG/DL Cholesterol/HDL Ratio 6.45 RATIO Polychromasia 2.3 % Iron Level 23 MCG/DL Total Iron Binding Capacity 202 MCG/DL Percent Iron Saturation 11.4 % Ferritin 206 NG/ML Test 08/17/17 08:50 08/19/17 05:40 Neutrophils (%) (Auto) 73.3 % Lymphocytes (%) (Auto) 17.1 % Monocytes (%) (Auto) 5.2 % Eosinophils (%) (Auto) 3.2 % Basophils (%) (Auto) 1.2 % Neutrophils # (Auto) 14.4 TH/MM3 Lymphocytes # (Auto) 3.4 TH/MM3 Monocytes # (Auto) 1.0 TH/MM3 Eosinophils # (Auto) 0.6 TH/MM3 Basophils # (Auto) 0.2 TH/MM3 White Blood Count 19.7 TH/MM3 Red Blood Count 4.15 MIL/MM3 Hemoglobin 10.0 GM/DL Hematocrit 31.3 % Mean Corpuscular Volume 75.5 FL Mean Corpuscular Hemoglobin 24.2 PG Mean Corpuscular Hemoglobin Concent 32.0 % Red Cell Distribution Width 20.8 % Platelet Count 813 TH/MM3 Mean Platelet Volume 7.2 FL CBC Comment AUTO DIFF Differential Total Cells Counted 100 Neutrophils % (Manual) 74 % Band Neutrophils % 5 % Lymphocytes % 9 % Monocytes % 8 % Eosinophils % 2 % Basophils % 1 % Neutrophils # (Manual) 15.8 TH/MM3 Myelocytes 1 % Differential Comment FINAL DIFF MANUAL Platelet Estimate HIGH Platelet Morphology Comment NORMAL Ovalocytes 1+ Blood Urea Nitrogen 21 MG/DL Creatinine 0.77 MG/DL Random Glucose 111 MG/DL Total Protein 6.1 GM/DL Albumin 1.9 GM/DL Calcium Level 8.4 MG/DL Phosphorus Level 4.9 MG/DL Magnesium Level 2.2 MG/DL Alkaline Phosphatase 252 U/L Aspartate Amino Transf (AST/SGOT) 21 U/L Alanine Aminotransferase (ALT/SGPT) 37 U/L Total Bilirubin 0.1 MG/DL Sodium Level 137 MEQ/L Potassium Level 4.5 MEQ/L Chloride Level 102 MEQ/L Carbon Dioxide Level 26.4 MEQ/L Anion Gap 9 MEQ/L Estimat Glomerular Filtration Rate 106 ML/MIN Objective Remarks General: lying in bed, nad Respiratory: Lungs CTA, Non-labored respirations, BS equal, Coarse breath sounds Gastrointestinal: Positive Bowel Sounds, Non-Distended, Non-Tender Cardiovascular: Normal rate, Regular Rhythm Skin: palor improved. Musculoskeletal: Deformity (none) Psychiatric: Cooperative, Appropriate mood & affect Orientation: oriented to Self, oriented to Place, oriented to Time (with cues) , oriented to Situation Neurologic: Pupils (E RLA), EOM (intact with nystagmus), Facial Symmetry ( symmetric), Speech (clear with no word finding difficulties) Motor: Right Upper Extremity (4+/5), Left Upper Extremity (4+/5), Right Lower Extremity (4+/5), Left Lower Extremity (bandage in place and proximal strength is grossly intact) Medications and IVs Current Medications Medications (Trade) Dose Ordered Sig/Sumanth Route Start Time Stop Time Status Last Admin (D50w (Syr) Inj) 50 ml UNSCH PRN IV PUSH 08/03/17 19:30 (Glucagon Inj) 1 mg UNSCH PRN OTHER 08/03/17 19:30 (NovoLOG SUPPLEMENTAL SCALE) 1 ACHS SLIDING SCALE SQ 08/03/17 21:00 08/20/17 21:00 (Zofran Inj) 4 mg Q6H PRN IVP 08/03/17 19:30 08/03/17 21:08 (Heparin Inj) 5,000 units Q12H SQ 08/04/17 09:00 08/21/17 10:05 (Tylenol) 650 mg Q6H PRN PO 08/03/17 19:30 ([place] 5-325 Mg) 1 tab Q4H PRN PO 08/03/17 19:30 08/21/17 10:17 (Morphine Inj) 2 mg Q3H PRN IV PUSH 08/03/17 19:30 08/16/17 06:21 (Alanna-Colace) 1 tab BID PO 08/03/17 21:00 08/21/17 10:04 (Milk Of Magnesia Liq) 30 ml Q12H PRN PO 08/03/17 19:30 08/16/17 10:42 (Senokot) 17.2 mg Q12H PRN PO 08/03/17 19:30 (Dulcolax Supp) 10 mg DAILY PRN RECTAL 08/03/17 19:30 (Lactulose Liq) 30 ml DAILY PRN PO 08/03/17 19:30 08/16/17 12:53 (Neurontin) 600 mg QID PO 08/03/17 21:00 08/21/17 12:50 (Protonix) 40 mg DAILY@1600 PO 08/04/17 16:00 08/20/17 17:36 (Norvasc) 5 mg BID PO 08/05/17 14:15 08/21/17 10:03 (Catapres) 0.1 mg Q4H PRN PO 08/05/17 14:15 (Apresoline) 25 mg Q8HR PO 08/05/17 22:00 08/21/17 04:52 Ceftriaxone Sodium 2000 mg/ Sodium Chloride 100 ml @ 200 mls/hr Q24H IV 08/07/17 14:00 09/18/17 13:59 08/21/17 12:51 (Levemir Inj) 30 units BID SQ 08/08/17 21:00 08/21/17 10:06 (NS Flush) 2 ml BID IV FLUSH 08/10/17 21:00 08/21/17 09:00 (NS Flush) 2 ml UNSCH PRN IV FLUSH 08/10/17 12:45 (Proscar) 5 mg DAILY PO 08/11/17 16:00 08/21/17 10:05 (Aspirin Chew) 81 mg DAILY PO 08/12/17 09:00 08/21/17 10:03 (Lipitor) 40 mg DAILY PO 08/12/17 19:00 08/21/17 10:04 (Tylenol) 650 mg Q4H PRN PO 08/16/17 17:30 08/17/17 02:08 (Benadryl) 25 mg Q4H PRN PO 08/16/17 17:30 08/17/17 02:08 (Diflucan) 200 mg DAILY PO 08/17/17 09:00 08/21/17 10:04 (Miralax) 17 gm DAILY PO 08/18/17 11:30 08/21/17 10:05 A/P Assessment and Plan 1. Sepsis: Present admission, Streptococcus Bovis positive, ID specialist management with Rocephin and Fluconazole, GI specialist following patient Afebrile, still with Leukocytosis, AUSTEN with MR no vegetations, GI recommended EGD and Colonoscopy due to Bacteremia with Strep Bovis but due to recent stroke on anticoagulation, continue Ceftriaxone and Fluconazole, he has history of MRSA in the past. has Dry gangrene of the Left Heel, Strep Bovis and Crystal tropicalis, 2. Osteomyelitis:Left Foot. X-ray w/ erosive changes along posterior calcaneus with possible avulsion injury, MRI Foot with large soft tissue ulcer heal and broad area of osteomyelitis of posterior calcaneus with rupture of Achilles tendon, images reviewed . S/p IV Abx as above, will continue. The patient is status post left partial calcaneal resection. Patient to begin wound VAC on 08/14/17. As per podiatry plan is to discharge early next week once okay to DC with wound VAC and PICC line. 3. Hyperlipidemia: Lipid profile showed an elevated triglycerides of 182, cholesterol 183, LDL cholesterol 110. Patient started on Lipitor. There are no reported side effects. 4. Hypertension: controlled. 5. Left parietal/occipital stroke: Continue aspirin and Plavix. Patient with slurred speech on 08/14 and 08/15. Repeat CT scan of the brain on 08/15 did not show any acute disease as per Neurology okay to hold Plavix. 6. Iron deficiency anemia. Iron studies concurrent with iron deficiency anemia , stool Hemoccult is negative. Patient had been seen by GI some admission and offered a colonoscopy. However the patient stated he did not feel ready at the time to undergo the colonic prep. The patient is now willing to have the colonoscopy, consulted GI. The patient possibly developed an allergic reaction to IV iron. I will place it as an allergy. 08/16 The patient is very pale looking and extremely tired. I believe the patient has symptoms due to his anemia. I will transfuse 1 unit of packed red blood cells today. 08/17 Much improved after 1 unit PRBC. PAtient less symptomatic from anemia. GI reconsulted there is no urgency for EGD/colonoscopy. Neurology to recommend guidance on aspirin and Plavix for GI procedure. on hold Colonoscopy due to Plavix was just discontinued. 7. Thrombocytosis: Likely reactive to iron deficiency anemia. Continue to monitor CBC and platelets. 9. GI prophylaxis: Continue PPI. 10. DVT prophylaxis: Continue SCDs, No chemoprophylaxis given symptomatic anemia. Discharge Planning Continue to monitor in the medical floor. For EGD/colonoscopy for tomorrow. Will need ID input regarding antibiotic management. Uriah Worrell MD Aug 21, 2017 15:56
[2017-08-21] MEDS: PANTOPRAZOLE SOD 40 MG DELAYED RELEASE TAB PO SCH (16:56)
--- NOTE | 2017-08-21 18:01 | PD.WCN.NOT ---
Wound Consult Description: Received consult for wound VAC to applied to L heel with settings of 125 mm/hg and change m/w/f from Doctor Zoey Communicated with: Candelaria Dominguez 5 [facility] Wound Therapy Wound Location Wound Location: L heel Wound Description Length: 6cm Width: ~7cm Depth: ~1.5cm Wound bed appearance: Wound bed presents with ~10% facia, ~30% adipose, and ~60% red non granulation tissue Periwound appearance: Other (Hyperkeratotic tissue is noted fro 1 to 9 o'clock) Settings Suction: 125 mmHg, Continuous Intensity: Low Other Information: Bridged Foam type: Black Number of pieces: 1 Additonal Information Applied wound VAC on 08/21/2017 at 1600.Removed wet to moist dressing in place on L heel to reveal wound. Wound measurements and description noted above. Cleansed wound with normal saline and pat dry. Xeroform over sutures to protect from VAC drape.Applied adaptic over exposed facia in wound bed. Sprayed skin prep to periwound before window paning wound with VAC drape. Applied single piece of black granufoam to wound bed and secured dressing with VAC drape. Cut hole in VAC drape. Cut 1 strip of black granufoam and bridged from wound bed to dorsal foot over VAC drape.Then applied mushroom cap of black granufoam with Sensi trac pad over bridged granufoam to dorsal foot. Covered all exposed granufoam with VAC drape. VAC machine is on and suctioning at 125 mm/hg low continuous suction without leaks. Next wound VAC dressing change is Monday [facility] Aug 21, 2017 18:01
[2017-08-22] VITALS (7 sets, daily range): BP systolic 132–160; BP diastolic 64–84; PULSE 89–105; RESP 18–20; TEMP 96.9–98.6; O2SAT 95–97
[2017-08-22] MEDS: hydrALAZINE HCL 25 MG TAB PO SCH ×3 (05:44→21:05)
[2017-08-22] MEDS: ACETAMINOPHEN/HYDROcodone 325 MG/5 MG TAB PO PRN ×2 (05:45→21:04)
[2017-08-22] MEDS: INSULIN ASPART SUPPLEMENTAL SCALE SQ SCH ×4 (08:00→21:00)
[2017-08-22] MEDS: SODIUM CHLORIDE 0.9% FLUSH 5 ML FLUSH IV FLUSH SCH ×2 (09:00→21:00)
[2017-08-22] MEDS: INSULIN DETEMIR 100 UNITS/ML VIAL SQ SCH ×2 (09:00→21:05)
[2017-08-22] MEDS: DOCUSATE SODIUM 50 MG/SENNA 8.6 MG TAB PO SCH ×2 (09:00→21:04)
[2017-08-22] MEDS: GABAPENTIN 300 MG CAP PO SCH ×4 (10:12→21:05)
[2017-08-22] MEDS: FINASTERIDE 5 MG TAB PO SCH (10:12)
[2017-08-22] MEDS: FLUCONAZOLE 200 MG TAB PO SCH (10:12)
[2017-08-22] MEDS: POLYETHYLENE GLYCOL 17 GM PKG PO SCH (10:12)
[2017-08-22] MEDS: HEPARIN SODIUM - SQ 10,000 UNITS/ML VIAL SQ SCH ×2 (10:12→21:06)
[2017-08-22] MEDS: ATORVASTATIN 40 MG TAB PO SCH (10:13)
[2017-08-22] MEDS: amLODIPine BESYLATE 5 MG TAB PO SCH ×2 (10:13→21:04)
[2017-08-22] MEDS: ASPIRIN 81 MG CHEW TAB PO SCH (10:13)
--- NOTE | 2017-08-22 10:18 | HHI.PR ---
Subjective Remarks This is a pleasant 52 y/o Male admitted 08/03/17 with non healing left heel ulcer and sepsis He was diagnosed with gangrene and osteomyelitis of the left heel. 08/08/17 underwent a selective left lower extremity arteriogram with re-channeling of the left superficial femoral artery with balloon angioplasty and CSI arthrectomy. His Initial blood culture grew Strep Bovis, he will have Colonoscopy for next Monday08/21/17, developed right-sided weakness and slurred speech and was diagnosed with a left hemispheric nonhemorrhagic stroke and seen by neurology.He underwent left heel partial calcanectomy and left ankle I&D on August 09. He also underwent transesophageal echocardiography to rule out endocarditis and this was reportedly negative. The patient has been on antibiotics. He was also started on aspirin and Plavix because of his recent stroke. He is also on subQ heparin twice a day. 08/21:Seen in his bedroom and discussed with nurse, may have procedure later today. 08/22: Seen in his bedroom and discussed with nurse Miss Cota, no new issues, his Colonoscopy and EGD will be performed. tomorrow. Objective Vital Signs Date Time Temp Pulse Resp B/P (MAP) Pulse Ox O2 Delivery O2 Flow Rate FiO2 08/22/17 07:52 96.9 98 20 147/74 (98) 95 08/22/17 05:49 98.6 89 20 134/64 (87) 95 08/22/17 04:22 Room Air 08/22/17 00:00 97.7 100 18 132/84 (100) 97 08/22/17 00:00 97.0 100 18 132/84 (100) 97 08/21/17 23:30 Room Air 08/21/17 23:30 96 08/21/17 20:00 97.0 97 18 143/69 (93) 94 08/21/17 11:52 96.1 93 20 117/75 (89) 96 I/O 08/21/17 08/21/17 08/21/17 08/22/17 08/22/17 08/22/17 07:00 15:00 23:00 07:00 15:00 23:00 Output Total 1000 ml Balance -1000 ml Output Urine Total 1000 ml # Voids 3 Result Diagram: 08/19/17 0540 08/19/1740 Imaging Last Impressions Head CT 08/15/17 Signed Impressions: Service Date/Time: Tuesday, August 15, 2017 19:02 - CONCLUSION: No new acute findings Jose Francisco Colon MD Head Magnetic Resonance Angiography 08/10/17 Signed Impressions: Service Date/Time: July 18:07 - CONCLUSION: Occluded left internal carotid artery. Based on today's ultrasound, this appears to be at the origin and is probably chronic. Associated slightly decreased filling of the left anterior and middle cerebral artery distributions relative to the right. No acute abnormality seen of the intracranial arteries. Jose Francisco Rodriguez MD Carotid Artery Ultrasound 08/10/17 Signed Impressions: Service Date/Time: July 12:29 - CONCLUSION: 1. Apparent occlusive non-calcified plaque and thrombus in the left internal carotid origin. 2. Mild, less than 50%%, stenosis of the right internal carotid artery secondary to calcified plaque extending from the carotid bulb. 3. Antegrade vertebral artery flow. Eder Biggs MD Brain MRI 08/10/17 Signed Impressions: Service Date/Time: July 18:07 - CONCLUSION: 1. Several small subacute left white matter subacute infarcts as above. No associated mass effect, bleed or midline shift. 2. Left parietal-occipital infarct appears old by MRI. Jose Francisoc Rodriguez MD Foot X-Ray 08/09/17 Signed Impressions: Service Date/Time: Wednesday, August 09, 2017 18:57 - CONCLUSION: Large portion of the posterior calcaneus has been surgically resected. Remaining bone has a grossly normal radiographic appearance. Jose Francisco Rodriguez MD Lower Extremity Ultrasound 08/05/17 Signed Impressions: Service Date/Time: Saturday, August 05, 2017 18:13 - CONCLUSION: Negative exam with no evidence of deep venous thrombosis. Stone Sexton MD Aorta w/Runoff CTA 08/04/17 Signed Impressions: Service Date/Time: Friday, August 04, 2017 19:29 - CONCLUSION: 1. Severe atherosclerotic disease. There is a focal short segment high-grade stenosis of the distal left superficial femoral artery. This stenosic segment measures approximately 1 cm in length and represents a change from the prior study. Remaining left lower extremity arterial vessels demonstrate no significant change from the prior exam. 2. Moderate narrowing of the proximal superior mesenteric artery secondary to noncalcified plaque. This finding is stable. 3. Small bilateral pleural effusions with associated compressive atelectasis. Jose Francisco Rogers MD Foot MRI 08/03/17 0000 Signed Impressions: Service Date/Time: July 19:20 - CONCLUSION: Large soft tissue ulcer of the heel and with a broad area of osteomyelitis of the posterior calcaneus. The Achilles tendon is ruptured at its insertion. No drainable abscess. Jose Francisco Rodriguez MD Procedures With Diagnosis of Left Heel gangrene, dry and stable, left heel osteomyelitis, Left heel Achilles rupture status post Left Heel partial Calcanectomy, Left ankle I and D. 08/08/17 With Diagnosis of Diabetic foot wound left lower extremity, status post Selective left lower extremity arteriogram. Rechanneling of left superficial femoral artery with balloon angioplasty of the left SFA and above-knee popliteal artery with a 5-mm x 40-mm balloon and then CSI atherectomy Other Results Laboratory Tests Test 08/03/17 17:37 08/05/17 07:17 08/10/17 20:17 08/11/17 00:45 Erythrocyte Sedimentation Rate 24 mm/hr Prothrombin Time 13.5 SEC Prothromb Time International Ratio 1.2 RATIO Activated Partial Thromboplast Time 25.6 SEC Lactic Acid Level 1.3 mmol/L C-Reactive Protein 9.20 MG/DL Free Thyroxine 0.93 NG/DL Thyroid Stimulating Hormone 3rd Gen 2.050 uIU/ML Vancomycin Level Trough 7.2 MCG/ML Hemoglobin A1c 9.7 % Urine Color LIGHT-YELLOW Urine Turbidity CLEAR Urine pH 6.5 Urine Specific [place] 1.008 Urine Protein 100 mg/dL Urine Glucose (UA) 70 mg/dL Urine Ketones NEG mg/dL Urine Occult Blood NEG Urine Nitrite NEG Urine Bilirubin NEG Urine Urobilinogen LESS THAN 2.0 MG/DL Urine Leukocyte Esterase NEG Urine Bacteria RARE /hpf Microscopic Urinalysis Comment CATH-CULTURE IND Test 08/11/17 02:18 08/11/17 07:44 08/12/17 06:22 08/14/17 08:25 Total Creatine Kinase 15 U/L Troponin I LESS THAN 0.02 NG/ML Triglycerides Level 182 MG/DL Cholesterol Level 173 MG/DL LDL Cholesterol 110 MG/DL HDL Cholesterol 26.8 MG/DL Cholesterol/HDL Ratio 6.45 RATIO Polychromasia 2.3 % Iron Level 23 MCG/DL Total Iron Binding Capacity 202 MCG/DL Percent Iron Saturation 11.4 % Ferritin 206 NG/ML Test 08/17/17 08:50 08/19/17 05:40 Neutrophils (%) (Auto) 73.3 % Lymphocytes (%) (Auto) 17.1 % Monocytes (%) (Auto) 5.2 % Eosinophils (%) (Auto) 3.2 % Basophils (%) (Auto) 1.2 % Neutrophils # (Auto) 14.4 TH/MM3 Lymphocytes # (Auto) 3.4 TH/MM3 Monocytes # (Auto) 1.0 TH/MM3 Eosinophils # (Auto) 0.6 TH/MM3 Basophils # (Auto) 0.2 TH/MM3 White Blood Count 19.7 TH/MM3 Red Blood Count 4.15 MIL/MM3 Hemoglobin 10.0 GM/DL Hematocrit 31.3 % Mean Corpuscular Volume 75.5 FL Mean Corpuscular Hemoglobin 24.2 PG Mean Corpuscular Hemoglobin Concent 32.0 % Red Cell Distribution Width 20.8 % Platelet Count 813 TH/MM3 Mean Platelet Volume 7.2 FL CBC Comment AUTO DIFF Differential Total Cells Counted 100 Neutrophils % (Manual) 74 % Band Neutrophils % 5 % Lymphocytes % 9 % Monocytes % 8 % Eosinophils % 2 % Basophils % 1 % Neutrophils # (Manual) 15.8 TH/MM3 Myelocytes 1 % Differential Comment FINAL DIFF MANUAL Platelet Estimate HIGH Platelet Morphology Comment NORMAL Ovalocytes 1+ Blood Urea Nitrogen 21 MG/DL Creatinine 0.77 MG/DL Random Glucose 111 MG/DL Total Protein 6.1 GM/DL Albumin 1.9 GM/DL Calcium Level 8.4 MG/DL Phosphorus Level 4.9 MG/DL Magnesium Level 2.2 MG/DL Alkaline Phosphatase 252 U/L Aspartate Amino Transf (AST/SGOT) 21 U/L Alanine Aminotransferase (ALT/SGPT) 37 U/L Total Bilirubin 0.1 MG/DL Sodium Level 137 MEQ/L Potassium Level 4.5 MEQ/L Chloride Level 102 MEQ/L Carbon Dioxide Level 26.4 MEQ/L Anion Gap 9 MEQ/L Estimat Glomerular Filtration Rate 106 ML/MIN Objective Remarks General: lying in bed, nad Respiratory: Lungs CTA, Non-labored respirations, BS equal, Coarse breath sounds Gastrointestinal: Positive Bowel Sounds, Non-Distended, Non-Tender Cardiovascular: Normal rate, Regular Rhythm Skin: palor improved. Musculoskeletal: Deformity (none) Psychiatric: Cooperative, Appropriate mood & affect Orientation: oriented to Self, oriented to Place, oriented to Time (with cues) , oriented to Situation Neurologic: Pupils (E RLA), EOM (intact with nystagmus), Facial Symmetry ( symmetric), Speech (clear with no word finding difficulties) Motor: Right Upper Extremity (4+/5), Left Upper Extremity (4+/5), Right Lower Extremity (4+/5), Left Lower Extremity (bandage in place and proximal strength is grossly intact) Medications and IVs Current Medications Medications (Trade) Dose Ordered Sig/Sumanth Route Start Time Stop Time Status Last Admin (D50w (Syr) Inj) 50 ml UNSCH PRN IV PUSH 08/03/17 19:30 (Glucagon Inj) 1 mg UNSCH PRN OTHER 08/03/17 19:30 (NovoLOG SUPPLEMENTAL SCALE) 1 ACHS SLIDING SCALE SQ 08/03/17 21:00 08/21/17 17:00 (Zofran Inj) 4 mg Q6H PRN IVP 08/03/17 19:30 08/03/17 21:08 (Heparin Inj) 5,000 units Q12H SQ 08/04/17 09:00 08/21/17 20:56 (Tylenol) 650 mg Q6H PRN PO 08/03/17 19:30 ([place] 5-325 Mg) 1 tab Q4H PRN PO 08/03/17 19:30 08/22/17 05:45 (Morphine Inj) 2 mg Q3H PRN IV PUSH 08/03/17 19:30 08/16/17 06:21 (Alanna-Colace) 1 tab BID PO 08/03/17 21:00 08/21/17 20:55 (Milk Of Magnesia Liq) 30 ml Q12H PRN PO 08/03/17 19:30 08/16/17 10:42 (Senokot) 17.2 mg Q12H PRN PO 08/03/17 19:30 (Dulcolax Supp) 10 mg DAILY PRN RECTAL 08/03/17 19:30 (Lactulose Liq) 30 ml DAILY PRN PO 08/03/17 19:30 08/16/17 12:53 (Neurontin) 600 mg QID PO 08/03/17 21:00 08/21/17 20:55 (Protonix) 40 mg DAILY@1600 PO 08/04/17 16:00 08/21/17 16:56 (Norvasc) 5 mg BID PO 08/05/17 14:15 08/21/17 20:56 (Catapres) 0.1 mg Q4H PRN PO 08/05/17 14:15 (Apresoline) 25 mg Q8HR PO 08/05/17 22:00 08/22/17 05:44 Ceftriaxone Sodium 2000 mg/ Sodium Chloride 100 ml @ 200 mls/hr Q24H IV 08/07/17 14:00 09/18/17 13:59 08/21/17 12:51 (Levemir Inj) 30 units BID SQ 08/08/17 21:00 08/21/17 20:56 (NS Flush) 2 ml BID IV FLUSH 08/10/17 21:00 08/21/17 20:57 (NS Flush) 2 ml UNSCH PRN IV FLUSH 08/10/17 12:45 (Proscar) 5 mg DAILY PO 08/11/17 16:00 08/21/17 10:05 (Aspirin Chew) 81 mg DAILY PO 08/12/17 09:00 08/21/17 10:03 (Lipitor) 40 mg DAILY PO 08/12/17 19:00 08/21/17 10:04 (Tylenol) 650 mg Q4H PRN PO 08/16/17 17:30 08/17/17 02:08 (Benadryl) 25 mg Q4H PRN PO 08/16/17 17:30 08/17/17 02:08 (Diflucan) 200 mg DAILY PO 08/17/17 09:00 08/21/17 10:04 (Miralax) 17 gm DAILY PO 08/18/17 11:30 08/21/17 10:05 A/P Assessment and Plan 1. Sepsis: Present admission, Streptococcus Bovis positive, ID specialist management with Rocephin and Fluconazole, GI specialist following patient Afebrile, still with Leukocytosis, AUSTEN with MR no vegetations, GI recommended EGD and Colonoscopy due to Bacteremia with Strep Bovis but due to recent stroke on anticoagulation, continue Ceftriaxone and Fluconazole, he has history of MRSA in the past. has Dry gangrene of the Left Heel, Strep Bovis and Crystal tropicalis, 2. Osteomyelitis:Left Foot. X-ray w/ erosive changes along posterior calcaneus with possible avulsion injury, MRI Foot with large soft tissue ulcer heal and broad area of osteomyelitis of posterior calcaneus with rupture of Achilles tendon, images reviewed . S/p IV Abx as above, will continue. The patient is status post left partial calcaneal resection. Patient to begin wound VAC on 08/14/17. As per podiatry plan is to discharge early next week once okay to DC with wound VAC and PICC line. 3. Hyperlipidemia: Lipid profile showed an elevated triglycerides of 182, cholesterol 183, LDL cholesterol 110. Patient started on Lipitor. There are no reported side effects. 4. Hypertension: controlled. 5. Left parietal/occipital stroke: Continue aspirin and Plavix. Patient with slurred speech on 08/14 and 08/15. Repeat CT scan of the brain on 08/15 did not show any acute disease as per Neurology okay to hold Plavix. 6. Iron deficiency anemia. Iron studies concurrent with iron deficiency anemia , stool Hemoccult is negative. Patient had been seen by GI some admission and offered a colonoscopy. However the patient stated he did not feel ready at the time to undergo the colonic prep. The patient is now willing to have the colonoscopy, consulted GI. The patient possibly developed an allergic reaction to IV iron. I will place it as an allergy. 08/16 The patient is very pale looking and extremely tired. I believe the patient has symptoms due to his anemia. I will transfuse 1 unit of packed red blood cells today. 08/17 Much improved after 1 unit PRBC. PAtient less symptomatic from anemia. GI reconsulted there is no urgency for EGD/colonoscopy. Neurology to recommend guidance on aspirin and Plavix for GI procedure. on hold Colonoscopy due to Plavix was just discontinued. will be performed tomorrow. 7. Thrombocytosis: Likely reactive to iron deficiency anemia. Continue to monitor CBC and platelets. 9. GI prophylaxis: Continue PPI. 10. DVT prophylaxis: Continue SCDs, No chemoprophylaxis given symptomatic anemia. Discharge Planning Continue to monitor in the medical floor. For EGD/colonoscopy for tomorrow. Will need ID input regarding antibiotic management. Uriah Worrell MD Aug 22, 2017 10:18
[2017-08-22] MEDS: cefTRIAXone INJ 2,000 MG in SODIUM CHLORIDE 0.9% INJ 100 ML IV SCH (14:21)
[2017-08-22] MEDS: PANTOPRAZOLE SOD 40 MG DELAYED RELEASE TAB PO SCH (19:02)
[2017-08-23] VITALS (7 sets, daily range): BP systolic 105–152; BP diastolic 59–78; PULSE 80–109; RESP 18–20; TEMP 97.2–98.1; O2SAT 95–100
[2017-08-23] MEDS: ACETAMINOPHEN/HYDROcodone 325 MG/5 MG TAB PO PRN ×6 (01:01→21:43)
[2017-08-23] MEDS: hydrALAZINE HCL 25 MG TAB PO SCH ×3 (05:10→21:43)
[2017-08-23] MEDS: INSULIN ASPART SUPPLEMENTAL SCALE SQ SCH ×4 (08:00→21:00)
--- NOTE | 2017-08-23 08:08 | PD.POD ---
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 Past Med/Surg/Social History Social History Smoking Status: Current Every Day Smoker Objective Vital Signs Vital Signs Date Time Temp Pulse Resp B/P (MAP) Pulse Ox O2 Delivery O2 Flow Rate FiO2 08/23/17 04:45 98.1 80 18 135/69 (91) 95 08/23/17 04:37 Room Air 08/23/17 00:19 97.6 95 18 152/71 (98) 97 08/22/17 20:12 97.3 105 18 160/73 (102) 97 08/22/17 20:00 103 08/22/17 12:04 97.0 100 20 150/73 (98) 96 08/22/17 08:00 95 08/22/17 08:00 Room Air Coded Allergies: *MDRO Multi-Drug Resistant Organism (Verified Adverse Reaction, Unknown, ) MRSA (arm wound) - 01/2016 MRSA (blood, urine, wound) - 06/2013 Medications and IVs Administered Medications Medications (Trade) Dose Ordered Sig/Sumanth Route PRN Reason Start Time Stop Time Status Last Admin Dose Admin Insulin Aspart (NovoLOG SUPPLEMENTAL SCALE) 1 ACHS SLIDING SCALE SQ 08/03/17 21:00 08/22/17 21:00 Ondansetron HCl (Zofran Inj) 4 mg Q6H PRN IVP NAUSEA OR VOMITING 08/03/17 19:30 08/03/17 21:08 Heparin Sodium (Porcine) (Heparin Inj) 5,000 units Q12H SQ 08/04/17 09:00 08/22/17 21:06 Acetaminophen/ Hydrocodone Bitart ([place] 5-325 Mg) 1 tab Q4H PRN PO PAIN SCALE 3 TO 5 08/03/17 19:30 08/23/17 05:03 Morphine Sulfate (Morphine Inj) 2 mg Q3H PRN IV PUSH Pain 6-10 08/03/17 19:30 08/16/17 06:21 Senna/Docusate Sodium (Alanna-Colace) 1 tab BID PO 08/03/17 21:00 08/22/17 21:04 Magnesium Hydroxide (Milk Of Magnesia Liq) 30 ml Q12H PRN PO MILD - MODERATE CONSTIPATION 08/03/17 19:30 08/16/17 10:42 Lactulose (Lactulose Liq) 30 ml DAILY PRN PO SEVERE CONSITIPATION 08/03/17 19:30 08/16/17 12:53 Gabapentin (Neurontin) 600 mg QID PO 08/03/17 21:00 08/22/17 21:05 Pantoprazole Sodium (Protonix) 40 mg DAILY@1600 PO 08/04/17 16:00 08/22/17 19:02 Amlodipine Besylate (Norvasc) 5 mg BID PO 08/05/17 14:15 08/22/17 21:04 Hydralazine HCl (Apresoline) 25 mg Q8HR PO 08/05/17 22:00 08/23/17 05:10 Ceftriaxone Sodium 2000 mg/ Sodium Chloride 100 ml @ 200 mls/hr Q24H IV 08/07/17 14:00 09/18/17 13:59 08/22/17 14:21 Insulin Detemir (Levemir Inj) 30 units BID SQ 08/08/17 21:00 08/22/17 21:05 IV Flush (NS Flush) 2 ml BID IV FLUSH 08/10/17 21:00 08/22/17 21:00 Finasteride (Proscar) 5 mg DAILY PO 08/11/17 16:00 08/22/17 10:12 Aspirin (Aspirin Chew) 81 mg DAILY PO 08/12/17 09:00 08/22/17 10:13 Atorvastatin Calcium (Lipitor) 40 mg DAILY PO 08/12/17 19:00 08/22/17 10:13 Acetaminophen (Tylenol) 650 mg Q4H PRN PO SEE LABEL COMMENTS 08/16/17 17:30 08/17/17 02:08 Diphenhydramine HCl (Benadryl) 25 mg Q4H PRN PO SEE LABEL COMMENTS 08/16/17 17:30 08/17/17 02:08 Fluconazole (Diflucan) 200 mg DAILY PO 08/17/17 09:00 08/22/17 10:12 Polyethylene Glycol (Miralax) 17 gm DAILY PO 08/18/17 11:30 08/22/17 10:12 Other Results [facility] DEPARTMENT OF PATHOLOGY [address], [address], [place] [address] [email or web address] [email or web address] REPORT Patient: JOSELINE VARELA Specimen #: [id number] Page 1 of 1 [facility] DEPARTMENT OF PATHOLOGY [address], [place] [address] [email or web address] PATHOLOGY REPORT Page 1 of 1 CLINICAL HISTORY: Left diabetic heel ulcer. TISSUE: LEFT CALCANEOUS AND HEEL FLAP GROSS DESCRIPTION: 9.5 x 6.0 x 1.5 cm firm brown black portion of skin and underlying douglas yellow lobulated soft tissue. There is a separate 4.0 x 3.0 x 0.8 cm firm yellow pink focally gritty portion of tissue and a separate 5.5 x 4.5 x 3.5 cm hard douglas segment of bone. The bone segment has a convex articular surface along one side and a smooth cut surface along the opposite side. The articular surface has a 4.0 x 3.5 cm granular douglas red area. RSS 7. A-B- longitudinal sections along the peripheral edge of the skin portion (peripheral edge marked with black ink), C- separate focally gritty portion of tissue after decalcification, D- en face sections from the bone portion along the side with the smooth cut surface submitted after decalcification, F-G- articulated end of the bone portion after decalcification. DXN/adrian FINAL DIAGNOSIS: SKIN, SOFT TISSUE AND BONE, LEFT CALCANEUS AND HEEL, EXCISION: - GANGRENOUS NECROSIS AND ACUTE OSTEOMYELITIS. Physical Exam Remarks Left LE: Posterior lateral heel with large soft tissue void, ulcer noted with mainly granular tissue, no odor or obvious infection noted ulcer. Wound Description Length: 6cm Width: ~7cm Depth: ~1.5cm Wound bed appearance: Wound bed presents with ~10% facia, ~30% adipose, and ~60% red non granulation tissue Foot is warm sensation absent loss of achilles function Assessment & Plan Diagnosis: (1) Diabetic ulcer of heel ICD Codes: E11.621 - Type 2 diabetes mellitus with foot ulcer; L97.409 - Non- pressure chronic ulcer of unspecified heel and midfoot with unspecified severity Status: Acute (2) Osteomyelitis of toe of left foot ICD Codes: M86.9 - Osteomyelitis of toe of left foot Status: Acute A/P SP Partial calcanectomy with Dr Greer. Reviewed likely OM remains, medical treatment for OM recommended, no further surgery planned. Continue Wound VAC MWF. FU out pt with Dr Greer. Problem Qualifiers (1) Diabetic ulcer of heel: Qualified Codes: E13.621 - Other specified diabetes mellitus with foot ulcer; L97.429 - Non-pressure chronic ulcer of left heel and midfoot with unspecified severity Maurice Epstein DPM Aug 23, 2017 08:07
--- NOTE | 2017-08-23 08:14 | HHI.GIFU ---
GI Follow-up Note Consult Follow-up Subjective: Patient laying in bed comfortably, no new complaints. feel well. Objective: PHYSICAL EXAMINATION: Vitals signs stable No fever HEENT: Pupils round and reactive to light; normocephalic; atraumatic; no jaundice. Throat is clear. NECK: Neck is supple, no JVD, no lymphadenopathy. CHEST: Chest is clear to auscultation and percussion. CARDIAC: Regular rate and rhythm with no murmur gallop or rubs. ABDOMEN: Soft, nondistended, nontender; no hepatosplenomegaly; bowel sounds are present in all four quadrants. EXTREMITIES: No edema SKIN: Normal; no rash; no jaundice. RIGHT OF WAY MAN: No focal deficits; alert and oriented times three. Available Data (labs, X- Rays, Procedures) : reviewed. ASSESSMENT/PLAN: 1. Iron deficiency Anemia 2. Sepsis with Strep Bovis 3. Osteomyelitis 4. left parietal/occipital CVA 5. Dysphagia 6. Hx of colon polyps PLAN: 1. EGD with dil and C-scope 2. Liquid diet today 3. Bowel prep today 4. NPO after MN 5. Discussed with pt risk benefits and alt. Plavix has been on hold, for procedure. Pt understands increased risk for cva, and other complications. All questions answered and pt agreeable to procedure. It was a pleasure seeing Adilson Lehman. Thank you for this consult. Entered by: Nola Sequeira MD Aug 23, 2017 08:14
[2017-08-23] MEDS: FINASTERIDE 5 MG TAB PO SCH (08:56)
[2017-08-23] MEDS: POLYETHYLENE GLYCOL 17 GM PKG PO SCH (08:56)
[2017-08-23] MEDS: FLUCONAZOLE 200 MG TAB PO SCH (08:57)
[2017-08-23] MEDS: GABAPENTIN 300 MG CAP PO SCH ×4 (08:57→21:42)
[2017-08-23] MEDS: DOCUSATE SODIUM 50 MG/SENNA 8.6 MG TAB PO SCH ×2 (08:57→21:00)
[2017-08-23] MEDS: amLODIPine BESYLATE 5 MG TAB PO SCH ×2 (08:57→21:42)
[2017-08-23] MEDS: ATORVASTATIN 40 MG TAB PO SCH (08:57)
[2017-08-23] MEDS: ASPIRIN 81 MG CHEW TAB PO SCH (08:57)
[2017-08-23] MEDS: SODIUM CHLORIDE 0.9% FLUSH 5 ML FLUSH IV FLUSH SCH ×2 (08:58→21:00)
[2017-08-23] MEDS: HEPARIN SODIUM - SQ 10,000 UNITS/ML VIAL SQ SCH ×2 (09:00→21:00)
[2017-08-23] MEDS: INSULIN DETEMIR 100 UNITS/ML VIAL SQ SCH ×3 (09:00→21:44)
--- NOTE | 2017-08-23 09:20 | HHI.PR ---
Subjective Remarks This is a pleasant 52 y/o Male admitted 08/03/17 with non healing left heel ulcer and sepsis He was diagnosed with gangrene and osteomyelitis of the left heel. 08/08/17 underwent a selective left lower extremity arteriogram with re-channeling of the left superficial femoral artery with balloon angioplasty and CSI arthrectomy. His Initial blood culture grew Strep Bovis, he will have Colonoscopy for next Monday08/21/17, developed right-sided weakness and slurred speech and was diagnosed with a left hemispheric nonhemorrhagic stroke and seen by neurology.He underwent left heel partial calcanectomy and left ankle I&D on August 09. He also underwent transesophageal echocardiography to rule out endocarditis and this was reportedly negative. The patient has been on antibiotics. He was also started on aspirin and Plavix because of his recent stroke. He is also on subQ heparin twice a day. 08/21:Seen in his bedroom and discussed with nurse, may have procedure later today. 08/22: Seen in his bedroom and discussed with nurse Miss Cota, no new issues, his Colonoscopy and EGD will be performed. tomorrow. 08/23: Seen by Podiatry specialist with diagnosis of Type 2 diabetes mellitus with foot ulcer, osteomyelitis of toe of left foot, Status post Partial Calcanectomy with Dr. Greer, no further surgical procedure planned, follow up with Doctor Greer, as per Doctor Maurice Epstein. Seen by GI specialist with Iron deficiency Anemia, planned for EGD wtih dilatation and C scope for , continue Bowel prep NPO after midnight today, as per Doctor Nola Bartholomew. Objective Vital Signs Date Time Temp Pulse Resp B/P (MAP) Pulse Ox O2 Delivery O2 Flow Rate FiO2 08/23/17 08:34 81 08/23/17 08:01 97.2 90 20 152/74 (100) 97 08/23/17 04:45 98.1 80 18 135/69 (91) 95 08/23/17 04:37 Room Air 08/23/17 00:19 97.6 95 18 152/71 (98) 97 08/22/17 20:12 97.3 105 18 160/73 (102) 97 08/22/17 20:00 103 08/22/17 12:04 97.0 100 20 150/73 (98) 96 I/O 08/22/17 08/22/17 08/22/17 08/23/17 08/23/17 08/23/17 06:59 14:59 22:59 06:59 14:59 22:59 Intake Total 960 ml 240 ml Output Total 1425 ml 1950 ml 850 ml Balance -1425 ml -990 ml -610 ml Intake Oral 960 ml 240 ml Output Urine Total 1425 ml 1950 ml 850 ml Result Diagram: 08/19/17 0540 08/19/17 0540 Imaging Last Impressions Head CT 08/15/17 0000 Signed Impressions: Service Date/Time: Tuesday, August 15, 2017 19:02 - CONCLUSION: No new acute findings Jose Francisco Colon MD Head Magnetic Resonance Angiography 08/10/17 0000 Signed Impressions: Service Date/Time: July 18:07 - CONCLUSION: Occluded left internal carotid artery. Based on today's ultrasound, this appears to be at the origin and is probably chronic. Associated slightly decreased filling of the left anterior and middle cerebral artery distributions relative to the right. No acute abnormality seen of the intracranial arteries. Jose Francisco Rodriguez MD Carotid Artery Ultrasound 08/10/17 0000 Signed Impressions: Service Date/Time: July 12:29 - CONCLUSION: 1. Apparent occlusive non-calcified plaque and thrombus in the left internal carotid origin. 2. Mild, less than 50%%, stenosis of the right internal carotid artery secondary to calcified plaque extending from the carotid bulb. 3. Antegrade vertebral artery flow. Eder Biggs MD Brain MRI 08/10/17 0000 Signed Impressions: Service Date/Time: July 18:07 - CONCLUSION: 1. Several small subacute left white matter subacute infarcts as above. No associated mass effect, bleed or midline shift. 2. Left parietal-occipital infarct appears old by MRI. Jose Francisco Rodriguez MD Foot X-Ray 08/09/17 0000 Signed Impressions: Service Date/Time: Wednesday, August 09, 2017 18:57 - CONCLUSION: Large portion of the posterior calcaneus has been surgically resected. Remaining bone has a grossly normal radiographic appearance. Jose Francisco Rodriguez MD Lower Extremity Ultrasound 08/05/17 0000 Signed Impressions: Service Date/Time: Saturday, August 05, 2017 18:13 - CONCLUSION: Negative exam with no evidence of deep venous thrombosis. Stone Sexton MD Aorta w/Runoff CTA 08/04/17 0000 Signed Impressions: Service Date/Time: Friday, August 04, 2017 19:29 - CONCLUSION: 1. Severe atherosclerotic disease. There is a focal short segment high-grade stenosis of the distal left superficial femoral artery. This stenosic segment measures approximately 1 cm in length and represents a change from the prior study. Remaining left lower extremity arterial vessels demonstrate no significant change from the prior exam. 2. Moderate narrowing of the proximal superior mesenteric artery secondary to noncalcified plaque. This finding is stable. 3. Small bilateral pleural effusions with associated compressive atelectasis. Jose Francisco Rogers MD Foot MRI 08/03/17 0000 Signed Impressions: Service Date/Time: July 19:20 - CONCLUSION: Large soft tissue ulcer of the heel and with a broad area of osteomyelitis of the posterior calcaneus. The Achilles tendon is ruptured at its insertion. No drainable abscess. Jose Francisco Rodriguez MD Procedures With Diagnosis of Left Heel gangrene, dry and stable, left heel osteomyelitis, Left heel Achilles rupture status post Left Heel partial Calcanectomy, Left ankle I and D. 08/08/17 With Diagnosis of Diabetic foot wound left lower extremity, status post Selective left lower extremity arteriogram. Rechanneling of left superficial femoral artery with balloon angioplasty of the left SFA and above-knee popliteal artery with a 5-mm x 40-mm balloon and then CSI atherectomy Other Results Laboratory Tests Test 08/03/17 17:37 08/05/17 07:17 08/10/17 20:17 08/11/17 00:45 Erythrocyte Sedimentation Rate 24 mm/hr Prothrombin Time 13.5 SEC Prothromb Time International Ratio 1.2 RATIO Activated Partial Thromboplast Time 25.6 SEC Lactic Acid Level 1.3 mmol/L C-Reactive Protein 9.20 MG/DL Free Thyroxine 0.93 NG/DL Thyroid Stimulating Hormone 3rd Gen 2.050 uIU/ML Vancomycin Level Trough 7.2 MCG/ML Hemoglobin A1c 9.7 % Urine Color LIGHT-YELLOW Urine Turbidity CLEAR Urine pH 6.5 Urine Specific [place] 1.008 Urine Protein 100 mg/dL Urine Glucose (UA) 70 mg/dL Urine Ketones NEG mg/dL Urine Occult Blood NEG Urine Nitrite NEG Urine Bilirubin NEG Urine Urobilinogen LESS THAN 2.0 MG/DL Urine Leukocyte Esterase NEG Urine Bacteria RARE /hpf Microscopic Urinalysis Comment CATH-CULTURE IND Test 08/11/17 02:18 08/11/17 07:44 08/12/17 06:22 08/14/17 08:25 Total Creatine Kinase 15 U/L Troponin I LESS THAN 0.02 NG/ML Triglycerides Level 182 MG/DL Cholesterol Level 173 MG/DL LDL Cholesterol 110 MG/DL HDL Cholesterol 26.8 MG/DL Cholesterol/HDL Ratio 6.45 RATIO Polychromasia 2.3 % Iron Level 23 MCG/DL Total Iron Binding Capacity 202 MCG/DL Percent Iron Saturation 11.4 % Ferritin 206 NG/ML Test 08/17/17 08:50 08/19/17 05:40 Neutrophils (%) (Auto) 73.3 % Lymphocytes (%) (Auto) 17.1 % Monocytes (%) (Auto) 5.2 % Eosinophils (%) (Auto) 3.2 % Basophils (%) (Auto) 1.2 % Neutrophils # (Auto) 14.4 TH/MM3 Lymphocytes # (Auto) 3.4 TH/MM3 Monocytes # (Auto) 1.0 TH/MM3 Eosinophils # (Auto) 0.6 TH/MM3 Basophils # (Auto) 0.2 TH/MM3 White Blood Count 19.7 TH/MM3 Red Blood Count 4.15 MIL/MM3 Hemoglobin 10.0 GM/DL Hematocrit 31.3 % Mean Corpuscular Volume 75.5 FL Mean Corpuscular Hemoglobin 24.2 PG Mean Corpuscular Hemoglobin Concent 32.0 % Red Cell Distribution Width 20.8 % Platelet Count 813 TH/MM3 Mean Platelet Volume 7.2 FL CBC Comment AUTO DIFF Differential Total Cells Counted 100 Neutrophils % (Manual) 74 % Band Neutrophils % 5 % Lymphocytes % 9 % Monocytes % 8 % Eosinophils % 2 % Basophils % 1 % Neutrophils # (Manual) 15.8 TH/MM3 Myelocytes 1 % Differential Comment FINAL DIFF MANUAL Platelet Estimate HIGH Platelet Morphology Comment NORMAL Ovalocytes 1+ Blood Urea Nitrogen 21 MG/DL Creatinine 0.77 MG/DL Random Glucose 111 MG/DL Total Protein 6.1 GM/DL Albumin 1.9 GM/DL Calcium Level 8.4 MG/DL Phosphorus Level 4.9 MG/DL Magnesium Level 2.2 MG/DL Alkaline Phosphatase 252 U/L Aspartate Amino Transf (AST/SGOT) 21 U/L Alanine Aminotransferase (ALT/SGPT) 37 U/L Total Bilirubin 0.1 MG/DL Sodium Level 137 MEQ/L Potassium Level 4.5 MEQ/L Chloride Level 102 MEQ/L Carbon Dioxide Level 26.4 MEQ/L Anion Gap 9 MEQ/L Estimat Glomerular Filtration Rate 106 ML/MIN Objective Remarks General: lying in bed, nad Respiratory: Lungs CTA, Non-labored respirations, BS equal, Coarse breath sounds Gastrointestinal: Positive Bowel Sounds, Non-Distended, Non-Tender Cardiovascular: Normal rate, Regular Rhythm Skin: palor improved. Musculoskeletal: Deformity (none) Psychiatric: Cooperative, Appropriate mood & affect Orientation: oriented to Self, oriented to Place, oriented to Time (with cues) , oriented to Situation Neurologic: Pupils (E RLA), EOM (intact with nystagmus), Facial Symmetry ( symmetric), Speech (clear with no word finding difficulties) Motor: Right Upper Extremity (4+/5), Left Upper Extremity (4+/5), Right Lower Extremity (4+/5), Left Lower Extremity (bandage in place and proximal strength is grossly intact) Medications and IVs Current Medications Medications (Trade) Dose Ordered Sig/Sumanth Route Start Time Stop Time Status Last Admin (D50w (Syr) Inj) 50 ml UNSCH PRN IV PUSH 08/03/17 19:30 (Glucagon Inj) 1 mg UNSCH PRN OTHER 08/03/17 19:30 (NovoLOG SUPPLEMENTAL SCALE) 1 ACHS SLIDING SCALE SQ 08/03/17 21:00 08/22/17 21:00 (Zofran Inj) 4 mg Q6H PRN IVP 08/03/17 19:30 08/03/17 21:08 (Heparin Inj) 5,000 units Q12H SQ 08/04/17 09:00 08/22/17 21:06 (Tylenol) 650 mg Q6H PRN PO 08/03/17 19:30 (Sun 5-325 Mg) 1 tab Q4H PRN PO 08/03/17 19:30 08/23/17 09:00 (Morphine Inj) 2 mg Q3H PRN IV PUSH 08/03/17 19:30 08/16/17 06:21 (Alanna-Colace) 1 tab BID PO 08/03/17 21:00 08/23/17 08:57 (Milk Of Magnesia Liq) 30 ml Q12H PRN PO 08/03/17 19:30 08/16/17 10:42 (Senokot) 17.2 mg Q12H PRN PO 08/03/17 19:30 (Dulcolax Supp) 10 mg DAILY PRN RECTAL 08/03/17 19:30 (Lactulose Liq) 30 ml DAILY PRN PO 08/03/17 19:30 08/16/17 12:53 (Neurontin) 600 mg QID PO 08/03/17 21:00 08/23/17 08:57 (Protonix) 40 mg DAILY@1600 PO 08/04/17 16:00 08/22/17 19:02 (Norvasc) 5 mg BID PO 08/05/17 14:15 08/23/17 08:57 (Catapres) 0.1 mg Q4H PRN PO 08/05/17 14:15 (Apresoline) 25 mg Q8HR PO 08/05/17 22:00 08/23/17 05:10 Ceftriaxone Sodium 2000 mg/ Sodium Chloride 100 ml @ 200 mls/hr Q24H IV 08/07/17 14:00 09/18/17 13:59 08/22/17 14:21 (Levemir Inj) 30 units BID SQ 08/08/17 21:00 08/22/17 21:05 (NS Flush) 2 ml BID IV FLUSH 08/10/17 21:00 08/23/17 08:58 (NS Flush) 2 ml UNSCH PRN IV FLUSH 08/10/17 12:45 (Proscar) 5 mg DAILY PO 08/11/17 16:00 08/23/17 08:56 (Aspirin Chew) 81 mg DAILY PO 08/12/17 09:00 08/23/17 08:57 (Lipitor) 40 mg DAILY PO 08/12/17 19:00 08/23/17 08:57 (Tylenol) 650 mg Q4H PRN PO 08/16/17 17:30 08/17/17 02:08 (Benadryl) 25 mg Q4H PRN PO 08/16/17 17:30 08/17/17 02:08 (Diflucan) 200 mg DAILY PO 08/17/17 09:00 08/23/17 08:57 (Miralax) 17 gm DAILY PO 08/18/17 11:30 08/22/17 10:12 (Colyte Liq) 4,000 ml ONCE ONCE PO 08/23/17 18:00 08/23/17 18:01 A/P Assessment and Plan 1. Sepsis: Present admission, Streptococcus Bovis positive, ID specialist management with Rocephin and Fluconazole, GI specialist following patient Afebrile, still with Leukocytosis, AUSTEN with MR no vegetations, GI recommended EGD and Colonoscopy due to Bacteremia with Strep Bovis but due to recent stroke on anticoagulation, continue Ceftriaxone and Fluconazole, he has history of MRSA in the past. has Dry gangrene of the Left Heel, Strep Bovis and Crystal tropicalis, 2. Osteomyelitis:Left Foot. X-ray w/ erosive changes along posterior calcaneus with possible avulsion injury, MRI Foot with large soft tissue ulcer heal and broad area of osteomyelitis of posterior calcaneus with rupture of Achilles tendon, images reviewed . S/p IV Abx as above, will continue. The patient is status post left partial calcaneal resection. Patient to begin wound VAC on 08/14/17. As per podiatry plan is to discharge early next week once okay to DC with wound VAC and PICC line. 3. Hyperlipidemia: Lipid profile showed an elevated triglycerides of 182, cholesterol 183, LDL cholesterol 110. Patient started on Lipitor. There are no reported side effects. 4. Hypertension: controlled. 5. Left parietal/occipital stroke: Continue aspirin and Plavix. Patient with slurred speech on 08/14 and 08/15. Repeat CT scan of the brain on 08/15 did not show any acute disease as per Neurology okay to hold Plavix. 6. Iron deficiency anemia. Iron studies concurrent with iron deficiency anemia , stool Hemoccult is negative. Patient had been seen by GI some admission and offered a colonoscopy. However the patient stated he did not feel ready at the time to undergo the colonic prep. The patient is now willing to have the colonoscopy, consulted GI. The patient possibly developed an allergic reaction to IV iron. I will place it as an allergy. 08/16 The patient is very pale looking and extremely tired. I believe the patient has symptoms due to his anemia. I will transfuse 1 unit of packed red blood cells today. 08/17 Much improved after 1 unit PRBC. PAtient less symptomatic from anemia. GI reconsulted there is no urgency for EGD/colonoscopy. Neurology to recommend guidance on aspirin and Plavix for GI procedure. on hold Colonoscopy due to Plavix was just discontinued. will be performed meaning tomorrow. 7. Thrombocytosis: Likely reactive to iron deficiency anemia. Continue to monitor CBC and platelets. 9. GI prophylaxis: Continue PPI. 10. DVT prophylaxis: Continue SCDs, No chemoprophylaxis given symptomatic anemia. Discharge Planning Continue to monitor in the medical floor. For EGD/colonoscopy for tomorrow. Will need ID input regarding antibiotic management. Uriah Worrell MD Aug 23, 2017 09:20
[2017-08-23] MEDS: cefTRIAXone INJ 2,000 MG in SODIUM CHLORIDE 0.9% INJ 100 ML IV SCH (13:06)
[2017-08-23] MEDS: PANTOPRAZOLE SOD 40 MG DELAYED RELEASE TAB PO SCH (17:12)
--- NOTE | 2017-08-23 17:58 | PD.WCN.NOT ---
Neg Pressure Wound Therapy Wound Location Wound Location: L heel Wound Description Length: 5.8cm Width: ~6cm Depth: ~1cm Wound bed appearance: Wound bed presents with ~10% facia, ~30% adipose, and ~60% red non granulation tissue Periwound appearance: Other (Periwound presents with Hyperkeratotic tissue from 4 to 1 o'clock ) Settings Suction: 125 mmHg, Continuous Intensity: Low Other Information: Bridged Foam type: Black Number of pieces: 1 Additonal Information Patient seen on [address] [place] [address] for wound VAc dressing change on 08/23/2017 at 1730.Removed wet to moist dressing in place on L heel to reveal wound. Wound measurements and description noted above. Cleansed wound with normal saline and pat dry. Xeroform over sutures to protect from VAC drape.Applied adaptic over exposed facia in wound bed. Sprayed skin prep to periwound before window paning wound with VAC drape. Applied single piece of black granufoam to wound bed and secured dressing with VAC drape. Cut hole in VAC drape. Cut 1 strip of black granufoam and bridged from wound bed to dorsal foot over VAC drape.Then applied mushroom cap of black granufoam with Sensi trac pad over bridged granufoam to dorsal foot. Covered all exposed granufoam with VAC drape. VAC machine is on and suctioning at 125 mm/hg low continuous suction without leaks. Next wound VAC dressing change is Monday08/25/2017 Dipti Bergeron JUAN JOSE Aug 23, 2017 17:58
[2017-08-23] MEDS ORDERED: PEG (High)/E-LYTE SOLN 4000 ML BTL PO ONE (18:00)
[2017-08-24] VITALS (8 sets, daily range): BP systolic 105–160; BP diastolic 59–80; PULSE 93–109; RESP 18–20; TEMP 97.2–98.2; O2SAT 94–100
[2017-08-24] MEDS: ACETAMINOPHEN/HYDROcodone 325 MG/5 MG TAB PO PRN ×5 (01:49→20:24)
[2017-08-24] MEDS: hydrALAZINE HCL 25 MG TAB PO SCH ×3 (05:47→20:24)
[2017-08-24] MEDS: INSULIN ASPART SUPPLEMENTAL SCALE SQ SCH ×4 (07:42→20:23)
[2017-08-24] MEDS ORDERED: PROPOFOL 200 MG/20 ML AMP ONE (08:08)
--- NOTE | 2017-08-24 08:49 | GIPROC ---
[facility] [address] [facility]. [facility], [address] EGD WITH DILATION PROCEDURE REPORT EXAM DATE: 08/24/2017 PATIENT NAME: Adilson Lehman MR#: [id number] BIRTHDATE: 1965 ATTENDING: Nola Bartholomew MD ORDER #: [id number] MIXER TENDER: Flor Polanco and Winston Sanders STATUS: inpatient INDICATIONS: The patient is a 52 yr old male here for an EGD with dilation due to dysphagia and iron deficiency anemia PROCEDURE PERFORMED: EGD w/ biopsy EGD w/ dilation of esophagus via guidewire MEDICATIONS: None and Per Anesthesia. TOPICAL ANESTHETIC: none CONSENT: The patient understands the risks and benefits of the procedure and understands that these risks include, but are not limited to: sedation, allergic reaction, infection, perforation and/or bleeding. Alternative means of evaluation and treatment include, among others: physical exam, x-rays, and/or surgical intervention. The patient elects to proceed with this endoscopic procedure. medical equipment was checked for proper function. Hand hygiene and appropriate measures for infection prevention was taken. After the risks, benefits and alternatives of the procedure were thoroughly explained, Informed consent was verified, confirmed and timeout was successfully executed by the treatment team. The patient was anesthetized with topical anesthesia and the Pentax [id number] endoscope was introduced through the mouth and advanced to the second portion of the duodenum. The instrument was slowly withdrawn as the mucosa was fully examined. 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 The stricture was traversable. The stricture was dilated using a 17mm (51Fr) savary dilator over guidewire. STOMACH: There was mild gastritis on the anterior wall of the gastric antrum and in the gastric antrum. A biopsy was performed. DUODENUM: The duodenal mucosa appeared normal in the duodenal bulb and 2nd part duodenum. Dilation was performed at . DILATOR: SIZE(S): RESISTANCE: HEME: APPEARANCE: Dilator: Savary over guidewire COMMENT: Retroflexed views revealed a hiatal hernia ADVERSE EVENTS: There were no complications. IMPRESSIONS: 1. 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 There was mild gastritis on the anterior wall of the gastric antrum and in the gastric antrum; biopsy was performed 3. Normal duodenal mucosa in the duodenal bulb and 2nd part duodenum 4. Retroflexed views revealed a hiatal hernia RECOMMENDATIONS: 1. Await biopsy results. Biopsy results will not be ready for 7-10 days. If you don't hear from us in two weeks, call our office for biopsy results. 2. Anti-reflux regimen 3. Continue PPI 4. Dilatations PRN REPEAT EXAM: NONE Nola Bartholomew MD eSigned: Nola Bartholomew MD 08/24/2017 8:49 AM cc: PATIENT NAME: Adilson Lehman MR#: [id number]
[2017-08-24] MEDS: FINASTERIDE 5 MG TAB PO SCH (09:00)
[2017-08-24] MEDS: DOCUSATE SODIUM 50 MG/SENNA 8.6 MG TAB PO SCH ×2 (09:00→20:23)
[2017-08-24] MEDS: ATORVASTATIN 40 MG TAB PO SCH (09:00)
[2017-08-24] MEDS: INSULIN DETEMIR 100 UNITS/ML VIAL SQ SCH ×2 (09:00→20:22)
[2017-08-24] MEDS: HEPARIN SODIUM - SQ 10,000 UNITS/ML VIAL SQ SCH ×2 (09:00→20:24)
[2017-08-24] MEDS: FLUCONAZOLE 200 MG TAB PO SCH (09:00)
[2017-08-24] MEDS: POLYETHYLENE GLYCOL 17 GM PKG PO SCH (09:00)
[2017-08-24] MEDS: amLODIPine BESYLATE 5 MG TAB PO SCH ×2 (09:00→20:24)
[2017-08-24] MEDS: GABAPENTIN 300 MG CAP PO SCH ×4 (09:00→20:23)
[2017-08-24] MEDS: ASPIRIN 81 MG CHEW TAB PO SCH (09:00)
[2017-08-24] MEDS: SODIUM CHLORIDE 0.9% FLUSH 5 ML FLUSH IV FLUSH SCH ×2 (09:00→20:24)
--- NOTE | 2017-08-24 09:09 | GIPROC ---
[facility] [address] [facility]. [facility], [address] COLONOSCOPY PROCEDURE REPORT EXAM DATE: 08/24/2017 PATIENT NAME: Adilson Lehman MR #: [id number] BIRTHDATE: 1965 ENDOSCOPIST: Nola Bartholomew MD ORDER #: [id number] PARTNER MANAGER: Flor Polanco and Winston Sanders STATUS: inpatient INDICATIONS: The patient is a 52 yr old male here for a colonoscopy due to iron deficiency anemia and recent bactremia with strep bovis. PROCEDURE PERFORMED: Colonoscopy, diagnostic Colonoscopy with polypectomy MEDICATIONS: None and Per Anesthesia. PREP QUALITY: fair PREP TYPE:GoLytely ESTIMATED BLOOD LOSS: None CONSENT: The patient understands the risks and benefits of the procedure and understands that these risks include, but are not limited to: sedation, allergic reaction, infection, perforation and/or bleeding. Alternative means of evaluation and treatment include, among others: physical exam, x-rays, and/or surgical intervention. The patient elects to proceed with this endoscopic procedure. medical equipment was checked for proper function. Hand hygiene and appropriate measures for infection prevention was taken. After the risks, benefits and alternatives of the procedure were thoroughly explained, Informed consent was verified, confirmed and timeout was successfully executed by the treatment team. A digital exam was performed and revealed no abnormalities of the rectum The Pentax [id number] endoscope was introduced through the anus and advanced to the cecum, which was identified by both the appendix and ileocecal valve. The instrument was then slowly withdrawn as the colon was fully examined. COLON FINDINGS: A small sessile polyp was found in the sigmoid colon. A polypectomy was performed with a cold snare. The resection was complete and the polyp tissue was completely retrieved. Mild diverticulosis was noted in the sigmoid colon. The colon mucosa was otherwise normal. Retroflexed views revealed internal hemorrhoids and Retroflexed views revealed small internal hemorrhoids The scope was then completely withdrawn from the patient and the procedure terminated. PROCEDURE WITHDRAWAL TIME:7minutes ADVERSE EVENTS: There were no complications. IMPRESSIONS: 1. A small sessile polyp was found in the sigmoid colon; polypectomy was performed with a cold snare 2. Mild diverticulosis was noted in the sigmoid colon 3. The colon mucosa was otherwise normal 4. Retroflexed views revealed internal hemorrhoids 5. Retroflexed views revealed small internal hemorrhoids 6. Was performed 7. Revealed no abnormalities of the rectum RECOMMENDATIONS: 1. Await biopsy results. Biopsy results will not be ready for 7-10 days. If you don't hear from us in two weeks, call our office for results. 2. High fiber diet RECALL: Return 5 years Colonoscopy Nola Bartholomew MD eSigned: Nola Bartholomew MD 08/24/2017 9:08 AM cc: PATIENT NAME: Adilson Lehman MR#: [id number]
[2017-08-24] MEDS ORDERED: DO NOT ADM ANY ANTICOAGULANT DRUGS PRN (10:45)
[2017-08-24] MEDS ORDERED: LIDOCAINE HCL 1% PF 5 ML AMPULE OTHER ONE (12:00)
--- NOTE | 2017-08-24 13:26 | HHI.PR ---
Subjective Remarks This is a pleasant 52 y/o Male admitted 08/03/17 with non healing left heel ulcer and sepsis He was diagnosed with gangrene and osteomyelitis of the left heel. 08/08/17 underwent a selective left lower extremity arteriogram with re-channeling of the left superficial femoral artery with balloon angioplasty and CSI arthrectomy. His Initial blood culture grew Strep Bovis, he will have Colonoscopy for next Monday08/21/17, developed right-sided weakness and slurred speech and was diagnosed with a left hemispheric nonhemorrhagic stroke and seen by neurology.He underwent left heel partial calcanectomy and left ankle I&D on August 09. He also underwent transesophageal echocardiography to rule out endocarditis and this was reportedly negative. The patient has been on antibiotics. He was also started on aspirin and Plavix because of his recent stroke. He is also on subQ heparin twice a day. 08/21:Seen in his bedroom and discussed with nurse, may have procedure later today. 08/22: Seen in his bedroom and discussed with nurse Miss Cota, no new issues, his Colonoscopy and EGD will be performed. tomorrow. 08/23: Seen by Podiatry specialist with diagnosis of Type 2 diabetes mellitus with foot ulcer, osteomyelitis of toe of left foot, Status post Partial Calcanectomy with Dr. Greer, no further surgical procedure planned, follow up with Doctor Greer, as per Doctor Maurice Epstein. Seen by GI specialist with Iron deficiency Anemia, planned for EGD wtih dilatation and C scope for , continue Bowel prep NPO after midnight today, as per Doctor Nola Bartholomew. 08/24: Seen in his bedroom and discussed with nurse Miss John, Patient stable status post EGD with Biopsy EGD with Dilation of esophagus via guidewire, found Short stricture at the cricopharyngeus, was dilated, Mild Gastritis on the anterior wall of the gastric antrum biopsy performed, Normal duodenal mucosa in the duodenal bulb and second part duodenum, Hiatal Hernia, recommended to continue PPIs, Dilatations PRN. awaiting clearance by ID specialist to transfer to SNF. Objective Vital Signs Date Time Temp Pulse Resp B/P (MAP) Pulse Ox O2 Delivery O2 Flow Rate FiO2 08/24/17 11:37 97.2 98 20 150/69 (96) 97 08/24/17 09:53 96 10/12/17 09:40 93 16 172/78 (109) 97 Room Air 08/24/17 09:30 92 16 144/68 (93) 97 Room Air 08/24/17 09:15 98.1 92 16 137/68 (91) 99 Nasal Cannula 2 08/24/17 08:18 97.6 93 20 142/69 (93) 97 08/24/17 04:00 98.0 98 18 133/63 (86) 96 08/24/17 00:00 97.8 109 18 105/59 (74) 100 08/23/17 20:00 97.8 109 18 105/59 (74) 100 08/23/17 18:15 18 08/23/17 15:37 97.3 92 20 148/78 (101) 96 I/O 08/23/17 08/23/17 08/23/17 08/24/17 08/24/17 08/24/17 06:59 14:59 22:59 06:59 14:59 22:59 Intake Total 240 ml 820 ml Output Total 850 ml 900 ml Balance -610 ml -80 ml Intake Oral 240 ml 720 ml IV Total 100 ml Output Urine Total 850 ml 900 ml # Voids 5 4 1 # Bowel Movements 0 5 Imaging Last Impressions Head CT 08/15/17 0000 Signed Impressions: Service Date/Time: Tuesday, August 15, 2017 19:02 - CONCLUSION: No new acute findings Jose Francisco Colon MD Head Magnetic Resonance Angiography 08/10/17 0000 Signed Impressions: Service Date/Time: July 18:07 - CONCLUSION: Occluded left internal carotid artery. Based on today's ultrasound, this appears to be at the origin and is probably chronic. Associated slightly decreased filling of the left anterior and middle cerebral artery distributions relative to the right. No acute abnormality seen of the intracranial arteries. Jose Francisco Rodriguez MD Carotid Artery Ultrasound 08/10/17 0000 Signed Impressions: Service Date/Time: July 12:29 - CONCLUSION: 1. Apparent occlusive non-calcified plaque and thrombus in the left internal carotid origin. 2. Mild, less than 50%%, stenosis of the right internal carotid artery secondary to calcified plaque extending from the carotid bulb. 3. Antegrade vertebral artery flow. Eder Biggs MD Brain MRI 08/10/17 0000 Signed Impressions: Service Date/Time: July 18:07 - CONCLUSION: 1. Several small subacute left white matter subacute infarcts as above. No associated mass effect, bleed or midline shift. 2. Left parietal-occipital infarct appears old by MRI. Jose Francisco Rodriguez MD Foot X-Ray 08/09/17 0000 Signed Impressions: Service Date/Time: Wednesday, August 09, 2017 18:57 - CONCLUSION: Large portion of the posterior calcaneus has been surgically resected. Remaining bone has a grossly normal radiographic appearance. Jose Francisco Rodriguez MD Lower Extremity Ultrasound 08/05/17 0000 Signed Impressions: Service Date/Time: Saturday, August 05, 2017 18:13 - CONCLUSION: Negative exam with no evidence of deep venous thrombosis. Stone Sexton MD Aorta w/Runoff CTA 08/04/17 0000 Signed Impressions: Service Date/Time: Friday, August 04, 2017 19:29 - CONCLUSION: 1. Severe atherosclerotic disease. There is a focal short segment high-grade stenosis of the distal left superficial femoral artery. This stenosic segment measures approximately 1 cm in length and represents a change from the prior study. Remaining left lower extremity arterial vessels demonstrate no significant change from the prior exam. 2. Moderate narrowing of the proximal superior mesenteric artery secondary to noncalcified plaque. This finding is stable. 3. Small bilateral pleural effusions with associated compressive atelectasis. Jose Francisco Rogers MD Foot MRI 08/03/17 0000 Signed Impressions: Service Date/Time: July 19:20 - CONCLUSION: Large soft tissue ulcer of the heel and with a broad area of osteomyelitis of the posterior calcaneus. The Achilles tendon is ruptured at its insertion. No drainable abscess. Jose Francisco Rodriguez MD Procedures With Diagnosis of Left Heel gangrene, dry and stable, left heel osteomyelitis, Left heel Achilles rupture status post Left Heel partial Calcanectomy, Left ankle I and D. 08/08/17 With Diagnosis of Diabetic foot wound left lower extremity, status post Selective left lower extremity arteriogram. Rechanneling of left superficial femoral artery with balloon angioplasty of the left SFA and above-knee popliteal artery with a 5-mm x 40-mm balloon and then CSI atherectomy Other Results Laboratory Tests Test 08/03/17 17:37 08/05/17 07:17 08/10/17 20:17 08/11/17 00:45 Erythrocyte Sedimentation Rate 24 mm/hr Prothrombin Time 13.5 SEC Prothromb Time International Ratio 1.2 RATIO Activated Partial Thromboplast Time 25.6 SEC Lactic Acid Level 1.3 mmol/L C-Reactive Protein 9.20 MG/DL Free Thyroxine 0.93 NG/DL Thyroid Stimulating Hormone 3rd Gen 2.050 uIU/ML Vancomycin Level Trough 7.2 MCG/ML Hemoglobin A1c 9.7 % Urine Color LIGHT-YELLOW Urine Turbidity CLEAR Urine pH 6.5 Urine Specific [place] 1.008 Urine Protein 100 mg/dL Urine Glucose (UA) 70 mg/dL Urine Ketones NEG mg/dL Urine Occult Blood NEG Urine Nitrite NEG Urine Bilirubin NEG Urine Urobilinogen LESS THAN 2.0 MG/DL Urine Leukocyte Esterase NEG Urine Bacteria RARE /hpf Microscopic Urinalysis Comment CATH-CULTURE IND Test 08/11/17 02:18 08/11/17 07:44 08/12/17 06:22 08/14/17 08:25 Total Creatine Kinase 15 U/L Troponin I LESS THAN 0.02 NG/ML Triglycerides Level 182 MG/DL Cholesterol Level 173 MG/DL LDL Cholesterol 110 MG/DL HDL Cholesterol 26.8 MG/DL Cholesterol/HDL Ratio 6.45 RATIO Polychromasia 2.3 % Iron Level 23 MCG/DL Total Iron Binding Capacity 202 MCG/DL Percent Iron Saturation 11.4 % Ferritin 206 NG/ML Test 08/17/17 08:50 08/19/17 05:40 Neutrophils (%) (Auto) 73.3 % Lymphocytes (%) (Auto) 17.1 % Monocytes (%) (Auto) 5.2 % Eosinophils (%) (Auto) 3.2 % Basophils (%) (Auto) 1.2 % Neutrophils # (Auto) 14.4 TH/MM3 Lymphocytes # (Auto) 3.4 TH/MM3 Monocytes # (Auto) 1.0 TH/MM3 Eosinophils # (Auto) 0.6 TH/MM3 Basophils # (Auto) 0.2 TH/MM3 White Blood Count 19.7 TH/MM3 Red Blood Count 4.15 MIL/MM3 Hemoglobin 10.0 GM/DL Hematocrit 31.3 % Mean Corpuscular Volume 75.5 FL Mean Corpuscular Hemoglobin 24.2 PG Mean Corpuscular Hemoglobin Concent 32.0 % Red Cell Distribution Width 20.8 % Platelet Count 813 TH/MM3 Mean Platelet Volume 7.2 FL CBC Comment AUTO DIFF Differential Total Cells Counted 100 Neutrophils % (Manual) 74 % Band Neutrophils % 5 % Lymphocytes % 9 % Monocytes % 8 % Eosinophils % 2 % Basophils % 1 % Neutrophils # (Manual) 15.8 TH/MM3 Myelocytes 1 % Differential Comment FINAL DIFF MANUAL Platelet Estimate HIGH Platelet Morphology Comment NORMAL Ovalocytes 1+ Blood Urea Nitrogen 21 MG/DL Creatinine 0.77 MG/DL Random Glucose 111 MG/DL Total Protein 6.1 GM/DL Albumin 1.9 GM/DL Calcium Level 8.4 MG/DL Phosphorus Level 4.9 MG/DL Magnesium Level 2.2 MG/DL Alkaline Phosphatase 252 U/L Aspartate Amino Transf (AST/SGOT) 21 U/L Alanine Aminotransferase (ALT/SGPT) 37 U/L Total Bilirubin 0.1 MG/DL Sodium Level 137 MEQ/L Potassium Level 4.5 MEQ/L Chloride Level 102 MEQ/L Carbon Dioxide Level 26.4 MEQ/L Anion Gap 9 MEQ/L Estimat Glomerular Filtration Rate 106 ML/MIN Objective Remarks General: lying in bed, nad Respiratory: Lungs CTA, Non-labored respirations, BS equal, Coarse breath sounds Gastrointestinal: Positive Bowel Sounds, Non-Distended, Non-Tender Cardiovascular: Normal rate, Regular Rhythm Skin: palor improved. Musculoskeletal: Deformity (none) Psychiatric: Cooperative, Appropriate mood & affect Orientation: oriented to Self, oriented to Place, oriented to Time (with cues) , oriented to Situation Neurologic: Pupils (E RLA), EOM (intact with nystagmus), Facial Symmetry ( symmetric), Speech (clear with no word finding difficulties) Motor: Right Upper Extremity (4+/5), Left Upper Extremity (4+/5), Right Lower Extremity (4+/5), Left Lower Extremity (bandage in place and proximal strength is grossly intact) Medications and IVs Current Medications Medications (Trade) Dose Ordered Sig/Sumanth Route Start Time Stop Time Status Last Admin (D50w (Syr) Inj) 50 ml UNSCH PRN IV PUSH 08/03/17 19:30 (Glucagon Inj) 1 mg UNSCH PRN OTHER 08/03/17 19:30 (NovoLOG SUPPLEMENTAL SCALE) 1 ACHS SLIDING SCALE SQ 08/03/17 21:00 08/23/17 21:00 (Zofran Inj) 4 mg Q6H PRN IVP 08/03/17 19:30 08/03/17 21:08 (Heparin Inj) 5,000 units Q12H SQ 08/04/17 09:00 08/22/17 21:06 (Tylenol) 650 mg Q6H PRN PO 08/03/17 19:30 (Dewitt 5-325 Mg) 1 tab Q4H PRN PO 08/03/17 19:30 08/24/17 11:10 (Morphine Inj) 2 mg Q3H PRN IV PUSH 08/03/17 19:30 08/16/17 06:21 (Alanna-Colace) 1 tab BID PO 08/03/17 21:00 08/23/17 08:57 (Milk Of Magnesia Liq) 30 ml Q12H PRN PO 08/03/17 19:30 08/16/17 10:42 (Senokot) 17.2 mg Q12H PRN PO 08/03/17 19:30 (Dulcolax Supp) 10 mg DAILY PRN RECTAL 08/03/17 19:30 (Lactulose Liq) 30 ml DAILY PRN PO 08/03/17 19:30 08/16/17 12:53 (Neurontin) 600 mg QID PO 08/03/17 21:00 08/23/17 21:42 (Protonix) 40 mg DAILY@1600 PO 08/04/17 16:00 08/23/17 17:12 (Norvasc) 5 mg BID PO 08/05/17 14:15 08/23/17 21:42 (Catapres) 0.1 mg Q4H PRN PO 08/05/17 14:15 (Apresoline) 25 mg Q8HR PO 08/05/17 22:00 08/24/17 05:47 Ceftriaxone Sodium 2000 mg/ Sodium Chloride 100 ml @ 200 mls/hr Q24H IV 08/07/17 14:00 09/18/17 13:59 08/23/17 13:06 (Levemir Inj) 30 units BID SQ 08/08/17 21:00 08/22/17 21:05 (NS Flush) 2 ml BID IV FLUSH 08/10/17 21:00 08/23/17 21:00 (NS Flush) 2 ml UNSCH PRN IV FLUSH 08/10/17 12:45 (Proscar) 5 mg DAILY PO 08/11/17 16:00 08/23/17 08:56 (Aspirin Chew) 81 mg DAILY PO 08/12/17 09:00 08/23/17 08:57 (Lipitor) 40 mg DAILY PO 08/12/17 19:00 08/23/17 08:57 (Tylenol) 650 mg Q4H PRN PO 08/16/17 17:30 08/17/17 02:08 (Benadryl) 25 mg Q4H PRN PO 08/16/17 17:30 08/17/17 02:08 (Diflucan) 200 mg DAILY PO 08/17/17 09:00 08/23/17 08:57 (Miralax) 17 gm DAILY PO 08/18/17 11:30 08/22/17 10:12 Miscellaneous Information ALL NURSING DEPARTME... UNSCH PRN .XX 08/24/17 10:45 08/25/17 10:44 A/P Assessment and Plan 1. Sepsis: Present admission, Streptococcus Bovis positive, ID specialist management with Rocephin and Fluconazole, GI specialist following patient Afebrile, still with Leukocytosis, AUSTEN with MR no vegetations, GI recommended EGD and Colonoscopy due to Bacteremia with Strep Bovis but due to recent stroke on anticoagulation, continue Ceftriaxone and Fluconazole, he has history of MRSA in the past. has Dry gangrene of the Left Heel, Strep Bovis and Crystal tropicalis, awaiting final by ID specialist for discharge. 2. Osteomyelitis:Left Foot. X-ray w/ erosive changes along posterior calcaneus with possible avulsion injury, MRI Foot with large soft tissue ulcer heal and broad area of osteomyelitis of posterior calcaneus with rupture of Achilles tendon, images reviewed . S/p IV Abx as above, will continue. The patient is status post left partial calcaneal resection. Patient to begin wound VAC on 08/14/17. As per podiatry plan is to discharge early next week once okay to DC with wound VAC. 3. Hyperlipidemia: Lipid profile showed an elevated triglycerides of 182, cholesterol 183, LDL cholesterol 110. Patient started on Lipitor. There are no reported side effects. 4. Hypertension: controlled. 5. Left parietal/occipital stroke: Continue aspirin and Plavix. Patient with slurred speech on 08/14 and 08/15. Repeat CT scan of the brain on 08/15 did not show any acute disease as per Neurology okay to hold Plavix. 6. Iron deficiency anemia. Iron studies concurrent with iron deficiency anemia , stool Hemoccult is negative. Patient had been seen by GI some admission and offered a colonoscopy. However the patient stated he did not feel ready at the time to undergo the colonic prep. The patient is now willing to have the colonoscopy, consulted GI. The patient possibly developed an allergic reaction to IV iron. I will place it as an allergy. 08/16 The patient is very pale looking and extremely tired. I believe the patient has symptoms due to his anemia. I will transfuse 1 unit of packed red blood cells today. 08/17 Much improved after 1 unit PRBC. PAtient less symptomatic from anemia. GI reconsulted there is no urgency for EGD/colonoscopy. Neurology to recommend guidance on aspirin and Plavix for GI procedure. 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 7. Thrombocytosis: Likely reactive to iron deficiency anemia. Continue to monitor CBC and platelets. GI prophylaxis: Continue PPI. DVT prophylaxis: Continue SCDs, No chemoprophylaxis given symptomatic anemia. Discharge Planning Okay to transfer to SNF awaiting for ID specialist final recommendations for discharge. Uriah Worrell MD Aug 24, 2017 13:26
[2017-08-24] MEDS: cefTRIAXone INJ 2,000 MG in SODIUM CHLORIDE 0.9% INJ 100 ML IV SCH (15:20)
--- NOTE | 2017-08-24 15:27 | HHI.PR ---
Addendum to Inpatient Note Additional Information pt seen around 1445 full note to follow Renee Garcia MD Aug 24, 2017 15:27
--- NOTE | 2017-08-24 15:35 | HHI.IDPN ---
Subjective Subjective Remarks sp colonoscopy - small polyp present afebrile Antibiotics fluconazole CFTX Allergies: Coded Allergies: *MDRO Multi-Drug Resistant Organism (Verified Adverse Reaction, Unknown, ) MRSA (arm wound) - 01/2016 MRSA (blood, urine, wound) - 06/2013 Objective . Vital Signs Date Time Temp Pulse Resp B/P (MAP) Pulse Ox O2 Delivery O2 Flow Rate FiO2 08/24/17 13:42 94 21 08/24/17 11:37 97.2 98 20 150/69 (96) 97 08/24/17 09:53 96 08/24/17 09:40 93 16 172/78 (109) 97 Room Air 08/24/17 09:30 92 16 144/68 (93) 97 Room Air 08/24/17 09:15 98.1 92 16 137/68 (91) 99 Nasal Cannula 2 08/24/17 08:18 97.6 93 20 142/69 (93) 97 08/24/17 04:00 98.0 98 18 133/63 (86) 96 08/24/17 00:00 97.8 109 18 105/59 (74) 100 08/23/17 20:00 97.8 109 18 105/59 (74) 100 08/23/17 18:15 18 08/23/17 15:37 97.3 92 20 148/78 (101) 96 08/24/17 08/24/17 08/25/17 15:00 23:00 07:00 Intake Total 350 ml Balance 350 ml Other 350 ml Imaging Last Impressions Head CT 08/15/17 0000 Signed Impressions: Service Date/Time: Tuesday, August 15, 2017 19:02 - CONCLUSION: No new acute findings Jose Francisco Colon MD Head Magnetic Resonance Angiography 08/10/17 0000 Signed Impressions: Service Date/Time: July 18:07 - CONCLUSION: Occluded left internal carotid artery. Based on today's ultrasound, this appears to be at the origin and is probably chronic. Associated slightly decreased filling of the left anterior and middle cerebral artery distributions relative to the right. No acute abnormality seen of the intracranial arteries. Jose Francisco Rodriguez MD Carotid Artery Ultrasound 08/10/17 0000 Signed Impressions: Service Date/Time: July 12:29 - CONCLUSION: 1. Apparent occlusive non-calcified plaque and thrombus in the left internal carotid origin. 2. Mild, less than 50%%, stenosis of the right internal carotid artery secondary to calcified plaque extending from the carotid bulb. 3. Antegrade vertebral artery flow. Eder Biggs MD Brain MRI 08/10/17 0000 Signed Impressions: Service Date/Time: July 18:07 - CONCLUSION: 1. Several small subacute left white matter subacute infarcts as above. No associated mass effect, bleed or midline shift. 2. Left parietal-occipital infarct appears old by MRI. Jose Francisco Rodriguez MD Foot X-Ray 08/09/17 0000 Signed Impressions: Service Date/Time: Wednesday, August 09, 2017 18:57 - CONCLUSION: Large portion of the posterior calcaneus has been surgically resected. Remaining bone has a grossly normal radiographic appearance. Jose Francisco Rodriguez MD Lower Extremity Ultrasound 08/05/17 0000 Signed Impressions: Service Date/Time: Saturday, August 05, 2017 18:13 - CONCLUSION: Negative exam with no evidence of deep venous thrombosis. Stone Sexton MD Aorta w/Runoff CTA 08/04/17 0000 Signed Impressions: Service Date/Time: Friday, August 04, 2017 19:29 - CONCLUSION: 1. Severe atherosclerotic disease. There is a focal short segment high-grade stenosis of the distal left superficial femoral artery. This stenosic segment measures approximately 1 cm in length and represents a change from the prior study. Remaining left lower extremity arterial vessels demonstrate no significant change from the prior exam. 2. Moderate narrowing of the proximal superior mesenteric artery secondary to noncalcified plaque. This finding is stable. 3. Small bilateral pleural effusions with associated compressive atelectasis. Jose Francisco Rogers MD Foot MRI 08/03/17 0000 Signed Impressions: Service Date/Time: July 19:20 - CONCLUSION: Large soft tissue ulcer of the heel and with a broad area of osteomyelitis of the posterior calcaneus. The Achilles tendon is ruptured at its insertion. No drainable abscess. Jose Francisco Rodriguez MD Physical Exam CONSTITUTIONAL/GENERAL: This is an adequately nourished patient, in no apparent distress. TUBES/LINES/DRAINS: SKIN: No jaundice, rashes, or lesions. HEENT: PERRL EOMI no facial weakness Toungue in midline CARDIOVASCULAR: Regular rate and rhythm without murmurs, gallops, or rubs. RESPIRATORY/CHEST: Symmetric, unlabored respirations. Clear to auscultation. Breath sounds equal bilaterally. No wheezes, rales, or rhonchi. GASTROINTESTINAL: Abdomen soft, mildly to moderately tender,+ distended. No hepato-splenomegaly, or palpable masses. No guarding. Bowel sounds present. MUSCULOSKELETAL: Extremities without clubbing, cyanosis, or edema. L heel with VAC in place serosang drainage NEUROLOGICAL: Awake and alert. Motor and sensory grossly within normal limits. Follows commands. Clear speech Moves all extremities. PSYCHIATRIC: No obvious anxiety/depression. no apparent hallucinations or other psychotic thought process. Assessment & Plan Remarks DFI, dry gangrene L heel Strep bovis and cand tropicalis in multiple clx sp part calcanectomy high risk for treatment failure 2/2 advanced disease and PVD COnfirmed underlying vascular insufficiency sp PCI HIgh grade strep bovis bactermeia - no e/o endocarditis on AUSTEN - sp colonoscopy L hemischere strokes, occluded L carotid cont CFTX x 6 weeks cont fluconazole po FU with podiatry cont with VAC OK to dc home once all arrangements made dw Renee Paul MD Aug 24, 2017 15:35
--- NOTE | 2017-08-24 15:37 | HHI.FF ---
Infusion Therapy Location of Infusion Therapy: [facility] Infusion Therapy Order Patient Information Patient Weight 82 kg Diagnosis: Diagnosis osteo Coded Allergies: *MDRO Multi-Drug Resistant Organism (Verified Adverse Reaction, Unknown, ) MRSA (arm wound) - 01/2016 MRSA (blood, urine, wound) - 06/2013 Administer Medication Ceftriaxone 2 grams IV q 24 hours Start Treatment: Aug 24, 2017 Stop Treatment: Sep 19, 2017 Additional Information Venous access: PICC Line Additional Instructions [x] Peripheral flush and dressing changes per protocol [x] Implanted port and central back line cook: * Implanted port: 10 ml Normal Saline followed by 5 ml Heparin 100 units/ml Heparin flush after each use and monthly to maintain. [] May leave port accessed during therapy. [] May leave peripheral site accessed for duration of therapy. [x] If patient has SOB or respiratory distress, check oxygen saturation. If less than 90% or clinical signs of respiratory distress, administer oxygen at 2 L/min. via nasal cannula and notify physician. [x] Anaphylaxis/Reaction orders: * Stop infusion. * Keep IV line open with saline flush. * Notify physician. * Monitor vital signs every 15 minutes until symptoms resolve. * Check Oxygen saturation; Oxygen at 2 L/min. via nasal cannula if less than 90% or clinical signs of respiratory distress. * Administer diphenhydramine (Benadryl) 25 mg IV STAT, (unless patient has received as pre-med). May repeat once, if necessary. * Solu-Cortef 250 mg IVP over 30-60 seconds, use 100 mg vials for each dissolution. * Epinephrine (1mg/1 ml) 0.3 mg subcutaneously or IVP now with any signs of respiratory distress. * Check with physician for new additional pre-med orders if patient is re- challenged or re-treated. [x] May remove PICC line when treatment complete, after confirming with Physician. [x] If the patient is admitted to the hospital, the ED, or transferred via [facility] , complete transfer form including medication reconciliation order sheet. Laboratory Tests Weekly Labs: CBC w/diff, Creatinine, LFT's (Hepatic function test), SED Rate Radha,Renee A. MD Aug 24, 2017 15:37
[2017-08-24] MEDS ORDERED: EPIN1INJ21 SQ (15:39)
[2017-08-24] MEDS ORDERED: EPIN1INJ21 IV PUSH (15:39)
[2017-08-24] MEDS ORDERED: FLUC200T2 PO (15:39)
[2017-08-24] MEDS ORDERED: SOLU250I IV PUSH (15:39)
[2017-08-24] MEDS ORDERED: CEFT2INJ IM (15:39)
--- NOTE | 2017-08-24 16:18 | HHI.PR ---
Subjective Subjective Comments Patient awake and alert. Denies any pain complaints. Discussed ongoing care at retirement facility and patient reports that he and his had decided on a facility. Allergies: Coded Allergies: *MDRO Multi-Drug Resistant Organism (Verified Adverse Reaction, Unknown, ) MRSA (arm wound) - 01/2016 MRSA (blood, urine, wound) - 06/2013 Review of Systems All other ROS: ROS reviewed as documented in chart Exam I&O / VS 08/24/17 08/24/17 08/25/17 15:00 23:00 07:00 Intake Total 350 ml 100 ml Balance 350 ml 100 ml IV Total 100 ml Other 350 ml Vital Signs Date Time Temp Pulse Resp B/P (MAP) Pulse Ox O2 Delivery O2 Flow Rate FiO2 08/24/17 13:42 94 21 08/24/17 11:37 97.2 98 20 150/69 (96) 97 08/24/17 09:53 96 08/24/17 09:40 93 16 172/78 (109) 97 Room Air 08/24/17 09:30 92 16 144/68 (93) 97 Room Air 08/24/17 09:15 98.1 92 16 137/68 (91) 99 Nasal Cannula 2 08/24/17 08:18 97.6 93 20 142/69 (93) 97 08/24/17 04:00 98.0 98 18 133/63 (86) 96 08/24/17 00:00 97.8 109 18 105/59 (74) 100 08/23/17 20:00 97.8 109 18 105/59 (74) 100 08/23/17 18:15 18 General: No acute distress Psychiatric: Cooperative Orientation: oriented to Self, oriented to Situation Neurologic: Speech (Appropriate) Motor: Right Upper Extremity (ui developer with angular js 5/5), Left Upper Extremity (ui developer with angular js 5/5), Right Lower Extremity (4+/5), Left Lower Extremity (VAC in place and ankle range of motion/motor appear to be grossly intact) Objective Micro and Labs Date/Time Source Procedure Growth Status 08/06/17 11:20 Blood Peripheral Aerobic Blood Culture - Final NO GROWTH IN 5 DAYS Complete 08/06/17 11:20 Blood Peripheral Anaerobic Blood Culture - Final NO GROWTH IN 5 DAYS Complete 08/15/17 13:35 Stool Stool Stool Occult Blood (ABHISHEK) - Final HEMOCCULT NEGATIVE Complete 08/11/17 00:45 Urine Catheterized Urine Urine Culture - Final NO GROWTH IN 48 HOURS. Complete 08/09/17 18:57 Wound Heel Fungal Smear - Final NO FUNGAL ELEMENTS SEEN. Resulted 08/09/17 18:57 Fungal Culture - Preliminary Crystal Tropicalis Resulted Assessment and Plan Diagnosis: (1) CVA (cerebral vascular accident) ICD Codes: I63.9 - Cerebral infarction, unspecified Status: Acute (2) Diabetic ulcer of heel ICD Codes: E11.621 - Type 2 diabetes mellitus with foot ulcer; L97.409 - Non- pressure chronic ulcer of unspecified heel and midfoot with unspecified severity Status: Acute Qualifiers: Diabetes mellitus type: other specified (including CAMILO) Laterality: left Non-pressure ulcer stage: unspecified non-pressure ulcer stage Qualified Codes: E13.621 - Other specified diabetes mellitus with foot ulcer; L97.429 - Non-pressure chronic ulcer of left heel and midfoot with unspecified severity Assessment 1. Left parietal/occipital stroke 2. Left heel ulceration status post left heel partial calcanectomy and ankle I and D: Now nonweightbearing. ID following an VAC in place 3. Impaired mobility and ADLs 4. Hypertension 5. Diabetes mellitus 6. Peripheral neuropathy 7. Peripheral vascular disease Plan 1. Physical therapy is mobilizing now mod assist for transfers using a rolling walker. Currently nonweightbearing left lower extremity 2. Occupational therapy addressing ADLs and patient supervision for feeding and contact guard for grooming and upper body dressing. Continue to maximize independence 3. Case management is addressing discharge planning for ongoing inpatient rehabilitation at subacute/skilled level. Discussed patient preference with disease case manager. 4. Will continue to follow while hospitalized and at discharge as appropriate Izabella Riddle MD Aug 24, 2017 16:18
[2017-08-24] MEDS: PANTOPRAZOLE SOD 40 MG DELAYED RELEASE TAB PO SCH (17:45)
--- NOTE | 2017-08-24 18:09 | RADRPT ---
EXAM DATE/TIME: 08/24/2017 17:40 [facility] COMPARISON: CHEST SINGLE AP, February 07, 2017, 12:12. INDICATIONS : Picc line placement verification. MEDICAL HISTORY : Cardiovascular disease. Hypertension Chronic obstructive pulmonary disease. Diabetes, Skin cancer . SURGICAL HISTORY : None. ENCOUNTER: Subsequent ACUITY: 1 day PAIN SCORE: 0/10 LOCATION: Bilateral chest FINDINGS: Right-sided PICC line is in the superior and cava. Small effusions and mild basilar airspace disease. Heart size normal. No pneumothorax. CONCLUSION: 1. Right PICC line superior vena cava without pneumothorax. Gustavo Hicks MD on August 24, 2017 at 18:05 Board Certified Radiologist. This report was verified electronically.
[2017-08-25] VITALS: BP 135/65; PULSE 100; RESP 18; TEMP 97.6; O2SAT 96
[2017-08-25] MEDS: ACETAMINOPHEN/HYDROcodone 325 MG/5 MG TAB PO PRN ×3 (00:43→09:15)
[2017-08-25 04:00] VITALS: BP 136/63; PULSE 89; RESP 18; TEMP 97.8; O2SAT 95
[2017-08-25] MEDS: hydrALAZINE HCL 25 MG TAB PO SCH ×2 (05:11→14:53)
[2017-08-25 05:15] VITALS: PULSE 97
[2017-08-25 08:05] VITALS: BP 123/60; PULSE 92; RESP 20; TEMP 98.5; O2SAT 97
[2017-08-25] MEDS: GABAPENTIN 300 MG CAP PO SCH ×2 (09:13→14:53)
[2017-08-25] MEDS: ATORVASTATIN 40 MG TAB PO SCH (09:13)
[2017-08-25] MEDS: amLODIPine BESYLATE 5 MG TAB PO SCH (09:13)
[2017-08-25] MEDS: FLUCONAZOLE 200 MG TAB PO SCH (09:13)
[2017-08-25] MEDS: DOCUSATE SODIUM 50 MG/SENNA 8.6 MG TAB PO SCH (09:13)
[2017-08-25] MEDS: FINASTERIDE 5 MG TAB PO SCH (09:13)
[2017-08-25] MEDS: ASPIRIN 81 MG CHEW TAB PO SCH (09:14)
[2017-08-25] MEDS: HEPARIN SODIUM - SQ 10,000 UNITS/ML VIAL SQ SCH (09:14)
[2017-08-25] MEDS: POLYETHYLENE GLYCOL 17 GM PKG PO SCH (09:15)
[2017-08-25] MEDS: SODIUM CHLORIDE 0.9% FLUSH 5 ML FLUSH IV FLUSH SCH (09:20)
[2017-08-25] MEDS: INSULIN ASPART SUPPLEMENTAL SCALE SQ SCH ×2 (09:20→13:02)
[2017-08-25] MEDS: INSULIN DETEMIR 100 UNITS/ML VIAL SQ SCH (09:21)
--- NOTE | 2017-08-25 10:02 | HHI.PR ---
Subjective Remarks This is a pleasant 52 y/o Male admitted 08/03/17 with non healing left heel ulcer and sepsis He was diagnosed with gangrene and osteomyelitis of the left heel. 08/08/17 underwent a selective left lower extremity arteriogram with re-channeling of the left superficial femoral artery with balloon angioplasty and CSI arthrectomy. His Initial blood culture grew Strep Bovis, he will have Colonoscopy for next Monday08/21/17, developed right-sided weakness and slurred speech and was diagnosed with a left hemispheric nonhemorrhagic stroke and seen by neurology.He underwent left heel partial calcanectomy and left ankle I&D on August 09. He also underwent transesophageal echocardiography to rule out endocarditis and this was reportedly negative. The patient has been on antibiotics. He was also started on aspirin and Plavix because of his recent stroke. He is also on subQ heparin twice a day. 08/21:Seen in his bedroom and discussed with nurse, may have procedure later today. 08/22: Seen in his bedroom and discussed with nurse Miss Cota, no new issues, his Colonoscopy and EGD will be performed. tomorrow. 08/23: Seen by Podiatry specialist with diagnosis of Type 2 diabetes mellitus with foot ulcer, osteomyelitis of toe of left foot, Status post Partial Calcanectomy with Dr. Greer, no further surgical procedure planned, follow up with Doctor Greer, as per Doctor Maurice Epstein. Seen by GI specialist with Iron deficiency Anemia, planned for EGD wtih dilatation and C scope for , continue Bowel prep NPO after midnight today, as per Doctor Nola Bartholomew. 08/24: Seen in his bedroom and discussed with nurse Miss John, Patient stable status post EGD with Biopsy EGD with Dilation of esophagus via guidewire, found Short stricture at the cricopharyngeus, was dilated, Mild Gastritis on the anterior wall of the gastric antrum biopsy performed, Normal duodenal mucosa in the duodenal bulb and second part duodenum, Hiatal Hernia, recommended to continue PPIs, Dilatations PRN. awaiting clearance by ID specialist to transfer to SNF. 08/25: Stable in his bedroom, discussed with nurse Miss John and with [employer] Rep[employer] patient ready for discharge will need to follow with Vascular management development specialist Doctor Esquivel and with Podiatry specialist Doctor Julieta Greer he has Dry gangrene of the Left heel, with secondary STrep Bovis and Crystal tropicalis in multiple cultures, status post Partial calcanectomy, high risk for treatment failure due to advance disease and PAD, High grade Strep Bovis Bacteremia, no Endocarditis on AUSTEN, status post Colonoscopy did not found malignancy, Left Hemispheric Strokes occluded left carotid, will continue with Ceftriaxone 2 grams daily and Fluconazole 200 mg by mouth daily for six weeks. follow with Podiatry specialist Continue Vacuum management and Okay to discharge from ID specialist standpoint. Objective Vital Signs Date Time Temp Pulse Resp B/P (MAP) Pulse Ox O2 Delivery O2 Flow Rate FiO2 08/25/17 08:05 98.5 92 20 123/60 (81) 97 08/25/17 05:15 97 08/25/17 04:00 97.8 89 18 136/63 (87) 95 08/25/17 00:00 97.6 100 18 135/65 (88) 96 08/24/17 20:00 98.2 99 18 160/80 (106) 97 08/24/17 16:23 97.5 96 20 154/74 (100) 97 08/24/17 13:42 94 21 08/24/17 11:37 97.2 98 20 150/69 (96) 97 I/O 08/24/17 08/24/17 08/24/17 08/25/17 08/25/17 08/25/17 07:00 15:00 23:00 07:00 15:00 23:00 Intake Total 1070 ml 100 ml Balance 1070 ml 100 ml Intake Oral 720 ml IV Total 100 ml Other 350 ml # Voids 1 3 3 Imaging Last Impressions Chest X-Ray 08/24/17 0000 Signed Impressions: Service Date/Time: August 17:40 - CONCLUSION: 1. Right PICC line superior vena cava without pneumothorax. Gustavo Hicks MD Head CT 08/15/17 0000 Signed Impressions: Service Date/Time: Tuesday, August 15, 2017 19:02 - CONCLUSION: No new acute findings Jose Francisco Colon MD Head Magnetic Resonance Angiography 08/10/17 0000 Signed Impressions: Service Date/Time: July 18:07 - CONCLUSION: Occluded left internal carotid artery. Based on today's ultrasound, this appears to be at the origin and is probably chronic. Associated slightly decreased filling of the left anterior and middle cerebral artery distributions relative to the right. No acute abnormality seen of the intracranial arteries. Jose Francisco Rodriguez MD Carotid Artery Ultrasound 08/10/17 0000 Signed Impressions: Service Date/Time: July 12:29 - CONCLUSION: 1. Apparent occlusive non-calcified plaque and thrombus in the left internal carotid origin. 2. Mild, less than 50%%, stenosis of the right internal carotid artery secondary to calcified plaque extending from the carotid bulb. 3. Antegrade vertebral artery flow. Eder Biggs MD Brain MRI 08/10/17 0000 Signed Impressions: Service Date/Time: July 18:07 - CONCLUSION: 1. Several small subacute left white matter subacute infarcts as above. No associated mass effect, bleed or midline shift. 2. Left parietal-occipital infarct appears old by MRI. Joes Francisco Rodriguez MD Foot X-Ray 08/09/17 0000 Signed Impressions: Service Date/Time: Wednesday, August 09, 2017 18:57 - CONCLUSION: Large portion of the posterior calcaneus has been surgically resected. Remaining bone has a grossly normal radiographic appearance. Jose Francisco Rodriguez MD Lower Extremity Ultrasound 08/05/17 0000 Signed Impressions: Service Date/Time: Saturday, August 05, 2017 18:13 - CONCLUSION: Negative exam with no evidence of deep venous thrombosis. Stone Sexton MD Aorta w/Runoff CTA 08/04/17 0000 Signed Impressions: Service Date/Time: Friday, August 04, 2017 19:29 - CONCLUSION: 1. Severe atherosclerotic disease. There is a focal short segment high-grade stenosis of the distal left superficial femoral artery. This stenosic segment measures approximately 1 cm in length and represents a change from the prior study. Remaining left lower extremity arterial vessels demonstrate no significant change from the prior exam. 2. Moderate narrowing of the proximal superior mesenteric artery secondary to noncalcified plaque. This finding is stable. 3. Small bilateral pleural effusions with associated compressive atelectasis. Jose Francisco Rogers MD Foot MRI 08/03/17 0000 Signed Impressions: Service Date/Time: July 19:20 - CONCLUSION: Large soft tissue ulcer of the heel and with a broad area of osteomyelitis of the posterior calcaneus. The Achilles tendon is ruptured at its insertion. No drainable abscess. Jose Francisco Rodriguez MD Procedures With Diagnosis of Left Heel gangrene, dry and stable, left heel osteomyelitis, Left heel Achilles rupture status post Left Heel partial Calcanectomy, Left ankle I and D. 08/08/17 With Diagnosis of Diabetic foot wound left lower extremity, status post Selective left lower extremity arteriogram. Rechanneling of left superficial femoral artery with balloon angioplasty of the left SFA and above-knee popliteal artery with a 5-mm x 40-mm balloon and then CSI atherectomy Other Results Laboratory Tests Test 08/03/17 17:37 08/05/17 07:17 08/10/17 20:17 08/11/17 00:45 Erythrocyte Sedimentation Rate 24 mm/hr Prothrombin Time 13.5 SEC Prothromb Time International Ratio 1.2 RATIO Activated Partial Thromboplast Time 25.6 SEC Lactic Acid Level 1.3 mmol/L C-Reactive Protein 9.20 MG/DL Free Thyroxine 0.93 NG/DL Thyroid Stimulating Hormone 3rd Gen 2.050 uIU/ML Vancomycin Level Trough 7.2 MCG/ML Hemoglobin A1c 9.7 % Urine Color LIGHT-YELLOW Urine Turbidity CLEAR Urine pH 6.5 Urine Specific [place] 1.008 Urine Protein 100 mg/dL Urine Glucose (UA) 70 mg/dL Urine Ketones NEG mg/dL Urine Occult Blood NEG Urine Nitrite NEG Urine Bilirubin NEG Urine Urobilinogen LESS THAN 2.0 MG/DL Urine Leukocyte Esterase NEG Urine Bacteria RARE /hpf Microscopic Urinalysis Comment CATH-CULTURE IND Test 08/11/17 02:18 08/11/17 07:44 08/12/17 06:22 08/14/17 08:25 Total Creatine Kinase 15 U/L Troponin I LESS THAN 0.02 NG/ML Triglycerides Level 182 MG/DL Cholesterol Level 173 MG/DL LDL Cholesterol 110 MG/DL HDL Cholesterol 26.8 MG/DL Cholesterol/HDL Ratio 6.45 RATIO Polychromasia 2.3 % Iron Level 23 MCG/DL Total Iron Binding Capacity 202 MCG/DL Percent Iron Saturation 11.4 % Ferritin 206 NG/ML Test 08/17/17 08:50 08/19/17 05:40 Neutrophils (%) (Auto) 73.3 % Lymphocytes (%) (Auto) 17.1 % Monocytes (%) (Auto) 5.2 % Eosinophils (%) (Auto) 3.2 % Basophils (%) (Auto) 1.2 % Neutrophils # (Auto) 14.4 TH/MM3 Lymphocytes # (Auto) 3.4 TH/MM3 Monocytes # (Auto) 1.0 TH/MM3 Eosinophils # (Auto) 0.6 TH/MM3 Basophils # (Auto) 0.2 TH/MM3 White Blood Count 19.7 TH/MM3 Red Blood Count 4.15 MIL/MM3 Hemoglobin 10.0 GM/DL Hematocrit 31.3 % Mean Corpuscular Volume 75.5 FL Mean Corpuscular Hemoglobin 24.2 PG Mean Corpuscular Hemoglobin Concent 32.0 % Red Cell Distribution Width 20.8 % Platelet Count 813 TH/MM3 Mean Platelet Volume 7.2 FL CBC Comment AUTO DIFF Differential Total Cells Counted 100 Neutrophils % (Manual) 74 % Band Neutrophils % 5 % Lymphocytes % 9 % Monocytes % 8 % Eosinophils % 2 % Basophils % 1 % Neutrophils # (Manual) 15.8 TH/MM3 Myelocytes 1 % Differential Comment FINAL DIFF MANUAL Platelet Estimate HIGH Platelet Morphology Comment NORMAL Ovalocytes 1+ Blood Urea Nitrogen 21 MG/DL Creatinine 0.77 MG/DL Random Glucose 111 MG/DL Total Protein 6.1 GM/DL Albumin 1.9 GM/DL Calcium Level 8.4 MG/DL Phosphorus Level 4.9 MG/DL Magnesium Level 2.2 MG/DL Alkaline Phosphatase 252 U/L Aspartate Amino Transf (AST/SGOT) 21 U/L Alanine Aminotransferase (ALT/SGPT) 37 U/L Total Bilirubin 0.1 MG/DL Sodium Level 137 MEQ/L Potassium Level 4.5 MEQ/L Chloride Level 102 MEQ/L Carbon Dioxide Level 26.4 MEQ/L Anion Gap 9 MEQ/L Estimat Glomerular Filtration Rate 106 ML/MIN Objective Remarks General: lying in bed, nad Respiratory: Lungs CTA, Non-labored respirations, BS equal, Coarse breath sounds Gastrointestinal: Positive Bowel Sounds, Non-Distended, Non-Tender Cardiovascular: Normal rate, Regular Rhythm Skin: palor improved. Musculoskeletal: Deformity (none) Psychiatric: Cooperative, Appropriate mood & affect Orientation: oriented to Self, oriented to Place, oriented to Time (with cues) , oriented to Situation Neurologic: Pupils (E RLA), EOM (intact with nystagmus), Facial Symmetry ( symmetric), Speech (clear with no word finding difficulties) Motor: Right Upper Extremity (4+/5), Left Upper Extremity (4+/5), Right Lower Extremity (4+/5), Left Lower Extremity (bandage in place and proximal strength is grossly intact) Medications and IVs Current Medications Medications (Trade) Dose Ordered Sig/Usmanth Route Start Time Stop Time Status Last Admin (D50w (Syr) Inj) 50 ml UNSCH PRN IV PUSH 08/03/17 19:30 (Glucagon Inj) 1 mg UNSCH PRN OTHER 08/03/17 19:30 (NovoLOG SUPPLEMENTAL SCALE) 1 ACHS SLIDING SCALE SQ 08/03/17 21:00 08/24/17 20:23 (Zofran Inj) 4 mg Q6H PRN IVP 08/03/17 19:30 08/03/17 21:08 (Heparin Inj) 5,000 units Q12H SQ 08/04/17 09:00 08/25/17 09:14 (Tylenol) 650 mg Q6H PRN PO 08/03/17 19:30 ([place] 5-325 Mg) 1 tab Q4H PRN PO 08/03/17 19:30 08/25/17 09:15 (Morphine Inj) 2 mg Q3H PRN IV PUSH 08/03/17 19:30 08/16/17 06:21 (Alanna-Colace) 1 tab BID PO 08/03/17 21:00 08/25/17 09:13 (Milk Of Magnesia Liq) 30 ml Q12H PRN PO 08/03/17 19:30 08/16/17 10:42 (Senokot) 17.2 mg Q12H PRN PO 08/03/17 19:30 (Dulcolax Supp) 10 mg DAILY PRN RECTAL 08/03/17 19:30 (Lactulose Liq) 30 ml DAILY PRN PO 08/03/17 19:30 08/16/17 12:53 (Neurontin) 600 mg QID PO 08/03/17 21:00 08/25/17 09:13 (Protonix) 40 mg DAILY@1600 PO 08/04/17 16:00 08/24/17 17:45 (Norvasc) 5 mg BID PO 08/05/17 14:15 08/25/17 09:13 (Catapres) 0.1 mg Q4H PRN PO 08/05/17 14:15 (Apresoline) 25 mg Q8HR PO 08/05/17 22:00 08/25/17 05:11 Ceftriaxone Sodium 2000 mg/ Sodium Chloride 100 ml @ 200 mls/hr Q24H IV 08/07/17 14:00 09/18/17 13:59 08/24/17 15:20 (Levemir Inj) 30 units BID SQ 08/08/17 21:00 08/25/17 09:21 (NS Flush) 2 ml BID IV FLUSH 08/10/17 21:00 08/25/17 09:20 (NS Flush) 2 ml UNSCH PRN IV FLUSH 08/10/17 12:45 (Proscar) 5 mg DAILY PO 08/11/17 16:00 08/25/17 09:13 (Aspirin Chew) 81 mg DAILY PO 08/12/17 09:00 08/25/17 09:14 (Lipitor) 40 mg DAILY PO 08/12/17 19:00 08/25/17 09:13 (Tylenol) 650 mg Q4H PRN PO 08/16/17 17:30 08/17/17 02:08 (Benadryl) 25 mg Q4H PRN PO 08/16/17 17:30 08/17/17 02:08 (Diflucan) 200 mg DAILY PO 08/17/17 09:00 08/25/17 09:13 (Miralax) 17 gm DAILY PO 08/18/17 11:30 08/25/17 09:15 Miscellaneous Information ALL NURSING DEPARTME... UNSCH PRN .XX 08/24/17 10:45 08/25/17 10:44 (Heparin Central Flush) See Protocol DAILY IV FLUSH 08/25/17 09:00 08/25/17 09:14 (Heparin Central Flush) See Protocol UNSCH PRN IV FLUSH 08/24/17 19:15 (NS Flush) UNSCH PRN IV FLUSH 08/24/17 19:15 A/P Assessment and Plan 1. Sepsis: Present admission, Streptococcus Bovis positive, ID specialist management with Rocephin and Fluconazole, GI specialist following patient Afebrile, still with Leukocytosis, AUSTEN with MR no vegetations, GI recommended EGD and Colonoscopy due to Bacteremia with Strep Bovis but due to recent stroke on anticoagulation, continue Ceftriaxone and Fluconazole, he has history of MRSA in the past. has Dry gangrene of the Left Heel, Strep Bovis and Crystal tropicalis, he has High grade Strep Bovis Bacteremia, no Endocarditis on AUSTEN, status post Colonoscopy did not found malignancy, Left Hemispheric Strokes occluded left carotid, will continue with Ceftriaxone 2 grams daily and Fluconazole 200 mg by mouth daily for six weeks. follow with Podiatry specialist Continue Vacuum management and Okay to discharge from ID specialist standpoint. 2. Osteomyelitis:Left Foot. X-ray w/ erosive changes along posterior calcaneus with possible avulsion injury, MRI Foot with large soft tissue ulcer heal and broad area of osteomyelitis of posterior calcaneus with rupture of Achilles tendon, images reviewed . S/p IV Abx as above, will continue. The patient is status post left partial calcaneal resection. Patient to begin wound VAC on 08/14/17. As per podiatry plan is to discharge early next week once okay to DC with wound VAC. and follow with Doctor Julieta Greer 3. Hyperlipidemia: Lipid profile showed an elevated triglycerides of 182, cholesterol 183, LDL cholesterol 110. Patient started on Lipitor. There are no reported side effects. 4. Hypertension: controlled. 5. Left parietal/occipital stroke: Continue aspirin and Plavix. Patient with slurred speech on 08/14 and 08/15. Repeat CT scan of the brain on 08/15 did not show any acute disease as per Neurology okay to hold Plavix. 6. Iron deficiency anemia. Iron studies concurrent with iron deficiency anemia , stool Hemoccult is negative. Patient had been seen by GI some admission and offered a colonoscopy. However the patient stated he did not feel ready at the time to undergo the colonic prep. The patient is now willing to have the colonoscopy, consulted GI. The patient possibly developed an allergic reaction to IV iron. I will place it as an allergy. 08/16 The patient is very pale looking and extremely tired. I believe the patient has symptoms due to his anemia. I will transfuse 1 unit of packed red blood cells today. 08/17 Much improved after 1 unit PRBC. PAtient less symptomatic from anemia. GI reconsulted there is no urgency for EGD/colonoscopy. Neurology to recommend guidance on aspirin and Plavix for GI procedure. 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 7. Thrombocytosis: Likely reactive to iron deficiency anemia. Continue to monitor CBC and platelets. GI prophylaxis: Continue PPI. DVT prophylaxis: Continue SCDs, No chemoprophylaxis given symptomatic anemia. Discharge Planning Okay to transfer to SNF today Uriah Worrell MD Aug 25, 2017 10:02
[2017-08-25 11:23] LABS: AUTOMATED NEUTROPHIL # 11.5 TH/MM3 (1.8-7.7); BASOPHIL # 0.2 TH/MM3 (0-0.2); BASOPHIL % 1.4 % (0.0-2.0); EOSINOPHIL # 0.5 TH/MM3 (0-0.4); EOSINOPHIL % 3.1 % (0.0-4.0); HEMO FLAGS DIFF FINAL; LYMPH % 17.9 % (9.0-44.0); LYMPHOCYTE # 2.8 TH/MM3 (1.0-4.8); MEAN CELL VOLUME 75.9 FL (80.0-100.0); MEAN CORPUSCULAR HEMOGLOBIN 24.1 PG (27.0-34.0); MEAN CORPUSCULAR HGB CONC 31.7 % (32.0-36.0); MONO % 5.3 % (0.0-8.0); NEUT % 72.3 % (16.0-70.0); PLATELET COUNT 584 TH/MM3 (150-450); RED BLOOD COUNT 3.83 MIL/MM3 (4.50-5.90); RED CELL DISTRIBUTION WIDTH 20.4 % (11.6-17.2); WHITE BLOOD COUNT 15.9 TH/MM3 (4.0-11.0)
[2017-08-25] MEDS ORDERED: ASPI81CH25 PO (11:33)
[2017-08-25] MEDS ORDERED: FINA5TAB2 PO (11:33)
[2017-08-25] MEDS ORDERED: HYDR-3799 PO (11:33)
[2017-08-25] MEDS ORDERED: ATOR40TA16 PO (11:33)
[2017-08-25] MEDS ORDERED: AMLO5 PO (11:33)
[2017-08-25] MEDS ORDERED: HYDR-3583 PO (11:33)
[2017-08-25] MEDS ORDERED: LEVEMIR SQ (11:33)
[2017-08-25 11:46] LABS: ANION GAP 9 MEQ/L (5-15); AST (GOT) 17 U/L (15-37); BICARBONATE 24.4 MEQ/L (21.0-32.0); BLOOD UREA NITROGEN 20 MG/DL (7-18); CHLORIDE 102 MEQ/L (98-107); GLOMERULAR FILTRATION RATE 111 ML/MIN (>89); POTASSIUM 4.2 MEQ/L (3.5-5.1); SODIUM (NA) 135 MEQ/L (136-145)
[2017-08-25 11:47] LABS: ALT (GPT) 27 U/L (12-78)
[2017-08-25 11:49] LABS: ALKALINE PHOSPHATASE 196 U/L (45-117); TOTAL BILIRUBIN ADULT 0.1 MG/DL (0.2-1.0)
[2017-08-25 11:56] VITALS: BP 151/70; PULSE 100; RESP 20; TEMP 98.8; O2SAT 97
--- NOTE | 2017-08-25 14:04 | PD.WCN.NOT ---
Wound Consult Description: Consult per Dr Epstein for left heel change MWF 125mmHg Communicated with: [employer] Manager Case Management Written message left for FREDDY Weber who was unavailable at this time Recommendation: Wound VAC may stay on until discharge today. Upon discharge today, patient will need a wet to dry dressing placed. Additional Information: Patient seen on for wound VAC dressing change to left heel. Patient states that he is being discharged today to [facility] facility. This was confirmed with case management. There is no wound VAC in patients room for him to leave with and go to rehab. The wound VAC currently in use cannot leave this facility and therefore when patient is discharged he will go with a wet to dry dressing per protocol. Petrona Horne [facility] Aug 25, 2017 14:04
[2017-08-25] MEDS: cefTRIAXone INJ 2,000 MG in SODIUM CHLORIDE 0.9% INJ 100 ML IV SCH (14:54)
[2017-08-25 15:50] VITALS: BP 147/68; PULSE 103; RESP 20; TEMP 97.3; O2SAT 97
[2017-08-25] MEDS: PANTOPRAZOLE SOD 40 MG DELAYED RELEASE TAB PO SCH (16:00)
--- NOTE | 2017-08-26 17:05 | HHI.DS ---
Discharge Summary Admission Date Aug 03, 2017 at 19:30 Discharge Date: Aug 25, 2017 Admitting Diagnosis diabetic heel ulcer, sepsis (1) Sepsis ICD Code: A41.9 - Sepsis, unspecified organism Diagnosis: Principal Status: Acute (2) Osteomyelitis ICD Code: M86.9 - Osteomyelitis, unspecified Diagnosis: Principal (3) Hyperkalemia ICD Code: E87.5 - Hyperkalemia Diagnosis: Principal Status: Acute (4) HTN (hypertension) ICD Code: I10 - Essential (primary) hypertension Diagnosis: Principal Status: Chronic (5) DM (diabetes mellitus) ICD Code: E11.9 - Type 2 diabetes mellitus without complications Diagnosis: Principal Status: Chronic (6) CVA (cerebral vascular accident) ICD Code: I63.9 - Cerebral infarction, unspecified Diagnosis: Principal Status: Acute Procedures DATE OF SURGERY 08/08/2017 PREOPERATIVE DIAGNOSIS Diabetic foot wound left lower extremity. POSTOPERATIVE DIAGNOSIS Diabetic foot wound left lower extremity. PROCEDURE 1. Selective left lower extremity arteriogram. 2. Rechanneling of left superficial femoral artery with balloon angioplasty of the left SFA and above-knee popliteal artery with a 5-mm x 40-mm balloon and then [facility] atherectomy SURGEON Dr. Herber Esquivel GRIFFIN GREER DPM DATE OF SURGERY: 08/09/2017 PREOPERATIVE DIAGNOSIS 1. Left heel gangrene, dry and stable. 2. Left heel osteomyelitis. 3. Left heel Achilles rupture. POSTOPERATIVE DIAGNOSIS 1. Left heel gangrene, dry and stable. 2. Left heel osteomyelitis. 3. Left heel Achilles rupture. PROCEDURE 1. Left heel partial calcanectomy. 2. Left ankle I&D. Brief History - From Admission This is a 52-year-old male with a PMH of HTN, DM, Peripheral Neuropathy, PVD and Chronic Left Foot Ulcer who was referred to the ER by PCP, Dr. Hernandez, for admission and further evaluation of left heel ulcer. Patient with chronic ulcer for the last 4 months, currently under Wound Care, states he recently completed antibiotics for left heel infection, was seen by PCP today and instructed to come to ER. Per pt, progressive pain to left heel especially w/ ambulation, today felt a 'crunch" followed by intense pain. On arrival, BP 126/ 68, HR 110, O2 sat 99% on RA, Afebrile. WBC 25.4. K+ 5.5. Lactic Acid 1.3. INR 1.2. LE Doppler negative for DVT. Foot X-ray w/ erosive changes along posterior calcaneus with possible avulsion injury. MRI Foot with large soft tissue ulcer of the heel with broad area of osteomyelitis of the posterior calcaneus, Achilles tendon ruptured at its insertion. S/p Vanc/Zosyn in ER CBC/BMP: 08/25/17 1050 08/25/17 1050 Significant Findings Laboratory Tests Test 08/25/17 10:50 White Blood Count 15.9 TH/MM3 (4.0-11.0) Red Blood Count 3.83 MIL/MM3 (4.50-5.90) Hemoglobin 9.2 GM/DL (13.0-17.0) Hematocrit 29.0 % (39.0-51.0) Mean Corpuscular Volume 75.9 FL (80.0-100.0) Mean Corpuscular Hemoglobin 24.1 PG (27.0-34.0) Mean Corpuscular Hemoglobin Concent 31.7 % (32.0-36.0) Red Cell Distribution Width 20.4 % (11.6-17.2) Platelet Count 584 TH/MM3 (150-450) Neutrophils (%) (Auto) 72.3 % (16.0-70.0) Neutrophils # (Auto) 11.5 TH/MM3 (1.8-7.7) Eosinophils # (Auto) 0.5 TH/MM3 (0-0.4) Blood Urea Nitrogen 20 MG/DL (7-18) Random Glucose 144 MG/DL (74-106) Total Protein 5.8 GM/DL (6.4-8.2) Albumin 1.9 GM/DL (3.4-5.0) Calcium Level 8.4 MG/DL (8.5-10.1) Alkaline Phosphatase 196 U/L (45-117) Total Bilirubin 0.1 MG/DL (0.2-1.0) Sodium Level 135 MEQ/L (136-145) Imaging Last Impressions Chest X-Ray 08/24/17 Signed Impressions: Service Date/Time: August 17:40 - CONCLUSION: 1. Right PICC line superior vena cava without pneumothorax. Gustavo Hicks MD Head CT 08/15/17 Signed Impressions: Service Date/Time: Tuesday, August 15, 2017 19:02 - CONCLUSION: No new acute findings Jose Francisco Colon MD Head Magnetic Resonance Angiography 08/10/17 Signed Impressions: Service Date/Time: July 18:07 - CONCLUSION: Occluded left internal carotid artery. Based on today's ultrasound, this appears to be at the origin and is probably chronic. Associated slightly decreased filling of the left anterior and middle cerebral artery distributions relative to the right. No acute abnormality seen of the intracranial arteries. Jose Francisco Rodriguez MD Carotid Artery Ultrasound 08/10/17 Signed Impressions: Service Date/Time: July 12:29 - CONCLUSION: 1. Apparent occlusive non-calcified plaque and thrombus in the left internal carotid origin. 2. Mild, less than 50%%, stenosis of the right internal carotid artery secondary to calcified plaque extending from the carotid bulb. 3. Antegrade vertebral artery flow. Eder Biggs MD Brain MRI 08/10/17 Signed Impressions: Service Date/Time: July 18:07 - CONCLUSION: 1. Several small subacute left white matter subacute infarcts as above. No associated mass effect, bleed or midline shift. 2. Left parietal-occipital infarct appears old by MRI. Jose Francisco Rodriguez MD Foot X-Ray 08/09/17 Signed Impressions: Service Date/Time: Wednesday, August 09, 2017 18:57 - CONCLUSION: Large portion of the posterior calcaneus has been surgically resected. Remaining bone has a grossly normal radiographic appearance. Jose Francisco Rodriguez MD Lower Extremity Ultrasound 08/05/17 Signed Impressions: Service Date/Time: Saturday, August 05, 2017 18:13 - CONCLUSION: Negative exam with no evidence of deep venous thrombosis. Stone Sexton MD Aorta w/Runoff CTA 08/04/17 0000 Signed Impressions: Service Date/Time: Friday, August 04, 2017 19:29 - CONCLUSION: 1. Severe atherosclerotic disease. There is a focal short segment high-grade stenosis of the distal left superficial femoral artery. This stenosic segment measures approximately 1 cm in length and represents a change from the prior study. Remaining left lower extremity arterial vessels demonstrate no significant change from the prior exam. 2. Moderate narrowing of the proximal superior mesenteric artery secondary to noncalcified plaque. This finding is stable. 3. Small bilateral pleural effusions with associated compressive atelectasis. Jose Francisco Rogers MD Foot MRI 08/03/17 0000 Signed Impressions: Service Date/Time: July 19:20 - CONCLUSION: Large soft tissue ulcer of the heel and with a broad area of osteomyelitis of the posterior calcaneus. The Achilles tendon is ruptured at its insertion. No drainable abscess. Jose Francisco Rodriguez MD PE at Discharge General: lying in bed, nad Respiratory: Lungs CTA, Non-labored respirations, BS equal, Coarse breath sounds Gastrointestinal: Positive Bowel Sounds, Non-Distended, Non-Tender Cardiovascular: Normal rate, Regular Rhythm Skin: palor improved. Musculoskeletal: Deformity (none) Psychiatric: Cooperative, Appropriate mood & affect Orientation: oriented to Self, oriented to Place, oriented to Time (with cues) , oriented to Situation Neurologic: Pupils (E RLA), EOM (intact with nystagmus), Facial Symmetry ( symmetric), Speech (clear with no word finding difficulties) Motor: Right Upper Extremity (4+/5), Left Upper Extremity (4+/5), Right Lower Extremity (4+/5), Left Lower Extremity (bandage in place and proximal strength is grossly intact) Hospital Course This is a pleasant 52 y/o Male admitted 08/03/17 with non healing left heel ulcer and sepsis He was diagnosed with gangrene and osteomyelitis of the left heel. 08/08/17 underwent a selective left lower extremity arteriogram with re-channeling of the left superficial femoral artery with balloon angioplasty and CSI arthrectomy. His Initial blood culture grew Strep Bovis, he will have Colonoscopy for next Monday08/21/17, developed right-sided weakness and slurred speech and was diagnosed with a left hemispheric nonhemorrhagic stroke and seen by neurology.He underwent left heel partial calcanectomy and left ankle I&D on August 09. He also underwent transesophageal echocardiography to rule out endocarditis and this was reportedly negative. The patient has been on antibiotics. He was also started on aspirin and Plavix because of his recent stroke. He is also on subQ heparin twice a day. 08/21:Seen in his bedroom and discussed with nurse, may have procedure later today. 08/22: Seen in his bedroom and discussed with nurse Miss Cota, no new issues, his Colonoscopy and EGD will be performed. tomorrow. 08/23: Seen by Podiatry specialist with diagnosis of Type 2 diabetes mellitus with foot ulcer, osteomyelitis of toe of left foot, Status post Partial Calcanectomy with Dr. Greer, no further surgical procedure planned, follow up with Doctor Zoey, as per Doctor Maurice Epstein. Seen by GI specialist with Iron deficiency Anemia, planned for EGD wtih dilatation and C scope for , continue Bowel prep NPO after midnight today, as per Doctor Nola Bartholomew. 08/24: Seen in his bedroom and discussed with nurse Miss John, Patient stable status post EGD with Biopsy EGD with Dilation of esophagus via guidewire, found Short stricture at the cricopharyngeus, was dilated, Mild Gastritis on the anterior wall of the gastric antrum biopsy performed, Normal duodenal mucosa in the duodenal bulb and second part duodenum, Hiatal Hernia, recommended to continue PPIs, Dilatations PRN. awaiting clearance by ID specialist to transfer to SNF. 08/25: Stable in his bedroom, discussed with nurse Miss John and with [employer] patient ready for discharge will need to follow with Vascular housing development specialist Doctor Esquivel and with Podiatry specialist Doctor Griffin Greer he has Dry gangrene of the Left heel, with secondary STrep Bovis and Crystal tropicalis in multiple cultures, status post Partial calcanectomy, high risk for treatment failure due to advance disease and PAD, High grade Strep Bovis Bacteremia, no Endocarditis on AUSTEN, status post Colonoscopy did not found malignancy, Left Hemispheric Strokes occluded left carotid, will continue with Ceftriaxone 2 grams daily and Fluconazole 200 mg by mouth daily for six weeks. follow with Podiatry specialist Continue Vacuum management and Okay to discharge from ID specialist standpoint. Assessment and Plan 1. Sepsis: Present admission, Streptococcus Bovis positive, ID specialist management with Rocephin and Fluconazole, GI specialist following patient Afebrile, still with Leukocytosis, AUSTEN with MR no vegetations, GI recommended EGD and Colonoscopy due to Bacteremia with Strep Bovis but due to recent stroke on anticoagulation, continue Ceftriaxone and Fluconazole, he has history of MRSA in the past. has Dry gangrene of the Left Heel, Strep Bovis and Crystal tropicalis, he has High grade Strep Bovis Bacteremia, no Endocarditis on AUSTEN, status post Colonoscopy did not found malignancy, Left Hemispheric Strokes occluded left carotid, will continue with Ceftriaxone 2 grams daily and Fluconazole 200 mg by mouth daily for six weeks. follow with Podiatry specialist Continue Vacuum management and Okay to discharge from ID specialist standpoint. 2. Osteomyelitis:Left Foot. X-ray w/ erosive changes along posterior calcaneus with possible avulsion injury, MRI Foot with large soft tissue ulcer heal and broad area of osteomyelitis of posterior calcaneus with rupture of Achilles tendon, images reviewed . S/p IV Abx as above, will continue. The patient is status post left partial calcaneal resection. Patient to begin wound VAC on 08/14/17. As per podiatry plan is to discharge early next week once okay to DC with wound VAC. and follow with Doctor Griffin Greer 3. Hyperlipidemia: Lipid profile showed an elevated triglycerides of 182, cholesterol 183, LDL cholesterol 110. Patient started on Lipitor. There are no reported side effects. 4. Hypertension: controlled. 5. Left parietal/occipital stroke: Continue aspirin and Plavix. Patient with slurred speech on 08/14 and 08/15. Repeat CT scan of the brain on 08/15 did not show any acute disease as per Neurology okay to hold Plavix. 6. Iron deficiency anemia. Iron studies concurrent with iron deficiency anemia , stool Hemoccult is negative. Patient had been seen by GI some admission and offered a colonoscopy. However the patient stated he did not feel ready at the time to undergo the colonic prep. The patient is now willing to have the colonoscopy, consulted GI. The patient possibly developed an allergic reaction to IV iron. I will place it as an allergy. 08/16 The patient is very pale looking and extremely tired. I believe the patient has symptoms due to his anemia. I will transfuse 1 unit of packed red blood cells today. 08/17 Much improved after 1 unit PRBC. PAtient less symptomatic from anemia. GI reconsulted there is no urgency for EGD/colonoscopy. Neurology to recommend guidance on aspirin and Plavix for GI procedure. 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 7. Thrombocytosis: Likely reactive to iron deficiency anemia. Continue to monitor CBC and platelets. GI prophylaxis: Continue PPI. DVT prophylaxis: Continue SCDs, No chemoprophylaxis given symptomatic anemia. Discharge Planning Okay to transfer to SNF today Pt Condition on Discharge: Good Discharge Disposition: Discharge to SNF Discharge Time: > 30 minutes Discharge Instructions DIET: Follow Instructions for: Heart Healthy Diet Activities you can perform: Regular-No Restrictions Uriah Worrell MD Aug 26, 2017 17:05
== END 2017-08-25 18:06 | DRG 853 ==
LOC: NEPC 16:04 → NEDA 19:30 → N05B 21:15
PROVIDERS: ADMIT Hospitalist; ATTEND Internal Medicine
PROC: 04CL3ZZ Extirpation of Matter from Left Femoral Artery, Percutaneous Approach (ICD-10-PCS; 2017-08-08)
PROC: B41G1ZZ Fluoroscopy of Left Lower Extremity Arteries using Low Osmolar Contrast (ICD-10-PCS; 2017-08-08)
PROC: 047L3ZZ Dilation of Left Femoral Artery, Percutaneous Approach (ICD-10-PCS; principal; 2017-08-08 12:45)
PROC: 0QBM0ZZ Excision of Left Tarsal, Open Approach (ICD-10-PCS; 2017-08-09)
PROC: 0LDP0ZZ Extraction of Left Lower Leg Tendon, Open Approach (ICD-10-PCS; 2017-08-09)
PROC: B246ZZ4 Ultrasonography of Right and Left Heart, Transesophageal (ICD-10-PCS; 2017-08-14)
PROC: 30233N1 Transfusion of Nonautologous Red Blood Cells into Peripheral Vein, Percutaneous Approach (ICD-10-PCS; 2017-08-17)
PROC: 0DBN8ZX Excision of Sigmoid Colon, Via Natural or Artificial Opening Endoscopic, Diagnostic (ICD-10-PCS; 2017-08-24)
PROC: 0DB68ZX Excision of Stomach, Via Natural or Artificial Opening Endoscopic, Diagnostic (ICD-10-PCS; 2017-08-24)
PROC: 0D758ZZ Dilation of Esophagus, Via Natural or Artificial Opening Endoscopic (ICD-10-PCS; 2017-08-24)
DX: A40.8 Other streptococcal sepsis (principal); I63.512 Cerebral infarction due to unspecified occlusion or stenosis of left middle cerebral artery; I96 Gangrene, not elsewhere classified; L89.159 Pressure ulcer of sacral region, unspecified stage; L89.309 Pressure ulcer of unspecified buttock, unspecified stage; E11.52 Type 2 diabetes mellitus with diabetic peripheral angiopathy with gangrene; L97.429 Non-pressure chronic ulcer of left heel and midfoot with unspecified severity; M86.172 Other acute osteomyelitis, left ankle and foot; E11.42 Type 2 diabetes mellitus with diabetic polyneuropathy; K22.0 Achalasia of cardia; K22.2 Esophageal obstruction; E11.621 Type 2 diabetes mellitus with foot ulcer; E11.65 Type 2 diabetes mellitus with hyperglycemia; E87.5 Hyperkalemia; I10 Essential (primary) hypertension; F17.210 Nicotine dependence, cigarettes, uncomplicated; M66.862 Spontaneous rupture of other tendons, left lower leg; K57.30 Diverticulosis of large intestine without perforation or abscess without bleeding; D12.5 Benign neoplasm of sigmoid colon; K64.8 Other hemorrhoids; K29.70 Gastritis, unspecified, without bleeding; K44.9 Diaphragmatic hernia without obstruction or gangrene; D50.9 Iron deficiency anemia, unspecified; R13.10 Dysphagia, unspecified; R47.81 Slurred speech; H55.01 Congenital nystagmus; I65.22 Occlusion and stenosis of left carotid artery; E11.69 Type 2 diabetes mellitus with other specified complication; K59.00 Constipation, unspecified; E78.5 Hyperlipidemia, unspecified; I34.0 Nonrheumatic mitral (valve) insufficiency; K21.9 Gastro-esophageal reflux disease without esophagitis; Z85.828 Personal history of other malignant neoplasm of skin
CPT/HCPCS: 36430; 36569; 37227; 70450; 70544; 70551; 71010; 73620; 73630; 73720; 75635; 75710; 76937; 80053; 80061; 80202; 81001; 82272; 82550; 82728; 82948; 83036; 83540; 83550; 83605; 83735; 84100; 84439; 84443; 84484; 85002; 85007; 85014; 85018; 85025; 85027; 85610; 85652; 85730; 86140; 86850; 86900; 86901; 86920; 87015; 87040; 87070; 87077; 87086; 87102; 87106; 87116; 87186; 87205; 87206; 88305; 88312; 93306; 93308; 93312; 93320; 93325; 93880; 93970; 93971; 93998; 94150; 96365; 96375; A9579; C1714; C1725; C1751; C1760; C1769; C1893; G0269; J0692; J0696; J1100; J1450; J1580; J1642; J1644; J1750; J1815; J1940; J2250; J2270; J2370; J2405; J2543; J2710; J3010; J3370; J7030; J7040; J7050; P9016; Q9967

== ENCOUNTER 2017-09-10 14:11 | Inpatient (IN) | payer OTHER, MEDICAID, MEDICARE ==
[2017-09-10] VITALS (7 sets, daily range): BP systolic 137–164; BP diastolic 63–74; PULSE 104–105; RESP 16–24; TEMP 97.4–97.9; O2SAT 88–97
[~2017-09-10] VITALS: Ht 180.3 cm; Wt 89.0 kg
[~2017-09-10 14:11] MED LIST changes: -ALBU0.08 NEB; +AMLO5 PO; +ASPI81CH25 PO; +ATOR40TA16 PO; -BACT800T5 PO; +CEFT2INJ IM; -CLOP75TA PO; +EPIN1INJ21 IV PUSH; +EPIN1INJ21 SQ; +FLUC200T2 PO; +HYDR-3799 PO; -LISI2.5T3 PO; -PENI500T PO; +SOLU250I IV PUSH
[2017-09-10] MEDS ORDERED: methylPREDNISolone SOD SUCC 125 MG/2 ML VIAL IV PUSH ONE (14:30)
--- NOTE | 2017-09-10 14:47 | RADRPT ---
EXAM DATE/TIME: 09/10/2017 14:32 [facility] COMPARISON: CHEST SINGLE AP, August 24, 2017, 17:40. INDICATIONS : Short of breath MEDICAL HISTORY : Cardiovascular disease. Hypertension Chronic obstructive pulmonary disease. Diabetes, Skin cancer. SURGICAL HISTORY : None. ENCOUNTER: Initial ACUITY: 2 days PAIN SCORE: 0/10 LOCATION: chest FINDINGS: A single AP erect portable view of the chest was obtained and demonstrates new consolidative opacity at the right lung base with blunting of the right costophrenic angle. The left costophrenic angle rem ains blunted with hazy opacity in the left lung base. The heart size is within normal limits with no perihilar edema. The right-sided PICC line remains in place. The bony thorax is unremarkable. CONCLUSION: 1. New consolidative opacity at the right lung base and small right effusion if concern for pneumonia . 2. Stable small left effusion with patchy opacity at the left lung base. Stone Sexton MD on September 10, 2017 at 14:45 Board Certified Radiologist. This report was verified electronically.
--- NOTE | 2017-09-10 14:49 | PD ---
HPI Chief Complaint: Respiratory Symptoms Time Seen by Provider: 14:22 Travel History International Travel<30 days: No Contact w/Intl Traveler<30days: No Traveled to known affect area: No History of Present Illness HPI Patient comes emergency Department from assisted living facility complaining of shortness of breath ongoing for the past 2 days. Patient denies anything making this better. States feels it is getting progressively worse. Patient reports he was on on 3 different inhalers but currently is not on any. Patient states he has not had them since being admitted to the hospital last month. Patient states he's come to the hospital and the past for similar was told he had COPD. Patient states he is currently on the Nicorette lozenges and was only recently started on this. Patient denies any chest pain, headache, fevers , back pain, numbness tingling anywhere, abdominal pain, or dizziness. Patient reports his facility remove the packing dressing is left ankle prior to coming here as they did not want to send there wound VAC to the hospital. Patient continues to get his antibiotics for his osteomyelitis. Patient reports chills for the past 2 days as well. PFSH Past Medical History Hx Anticoagulant Therapy: Yes Arthritis: Yes Asthma: No Autoimmune Disease: No Blood Disorders: No Anxiety: No Depression: No Heart Rhythm Problems: No Cancer: Yes (Squamous cell/basal skin cancer) Cardiovascular Problems: Yes High Cholesterol: Yes Chemotherapy: No Chest Pain: No Congestive Heart Failure: No COPD: Yes Cerebrovascular Accident: No Diabetes: Yes Diminished Hearing: No Endocrine: Yes Gastrointestinal Disorders: Yes (GERD) GERD: Yes Glaucoma: No Genitourinary: No Hepatitis: No Hiatal Hernia: Yes Herniated Disk: Yes (CERVICAL AND LUMBAR) Hypertension: Yes Immune Disorder: No Kidney Stones: No Musculoskeletal: No Neurologic: Yes (Neuropathy) Psychiatric: No Reproductive: No Respiratory: Yes Integumentary: Yes (multiple wounds with debriedment) Immunizations Current: Yes Migraines: No Radiation Therapy: No Renal Failure: No Seizures: No Sleep Apnea: No Thyroid Disease: No Ulcer: No Past Surgical History Abdominal Surgery: No AICD: Yes Arteriovenous Shunt: No Cardiac Surgery: No Ear Surgery: No Endocrine Surgery: No Eye Surgery: No Genitourinary Surgery: No Gynecologic Surgery: No Insulin Pump: No Joint Replacement: No Oral Surgery: Yes (teeth removed) Pacemaker: No Thoracic Surgery: No Other Surgery: Yes (Blood clot removal right arm, Left leg wound debridement, d &c right thigh, ) Social History Alcohol Use: No Tobacco Use: Yes (1/2 ppd) Substance Use: No Allergies-Medications (Allergen,Severity, Reaction): Coded Allergies: *MDRO Multi-Drug Resistant Organism (Verified Adverse Reaction, Unknown, 09/10/17) MRSA (arm wound) - 01/2016 MRSA (blood, urine, wound) - 06/2013 Reported Meds & Prescriptions Reported Meds & Active Scripts Active Finasteride 5 Mg Tab 5 Mg PO DAILY Do not crush. Levemir Inj (Insulin Detemir) 1,000 unit/ 10 ML Vial 30 Units SQ BID Do not mix with any other Insulin. Aspirin Low Strength (Aspirin) 81 Mg Chew 81 Mg PO DAILY Norvasc (Amlodipine Besylate) 5 Mg Tab 5 Mg PO BID Hydralazine HCl 25 Mg Tablet 25 Mg PO Q8HR Atorvastatin (Atorvastatin Calcium) 40 Mg Tab 40 Mg PO DAILY Hydrocodone-Acetaminophen 10-325 mg Tab 1 Tab PO Q4H PRN DO NOT USE THIS MEDICINE IF YOU WILL DRIVE A CAR OR USE A MACHINE, ONLY USE IT WHEN RESTING AT HOME. Ceftriaxone Inj (Ceftriaxone Sodium) 2 Gram Inj 2 Gm IM Q24H 28 Days Fluconazole 200 Mg Tab 200 Mg PO DAILY 30 Days Reported Saline Flush (IV Flush) 0.9 % Inj 10 Ml IV FLUSH Q8HR Nicorette Kristin (Nicotine Polacrilex) 4 Mg Kristin 4 Mg BUCCAL Q2H PRN Multi-Vitamin/Minerals (Multiple Vitamins W/ Minerals) 1 Tab Tab 1 Tab PO DAILY Milk of Magnesia Liq (Magnesium Hydroxide) 400 Mg/5 Ml Susp 30 Ml PO HS PRN Humalog Inj (Insulin Human Lispro) 1,000 Unit/10 Ml Vial 0-10 Units SQ ACHS Sliding Scale: 0-200=0 units, 201-250=2 units, 351-300=4 units, 301-350=6 units. 351-400=8 units, 401-450=10 units, <60 & >405 notify Enema Disposable (Sodium Phosphates) 19 Gram-7 Gram/118 Ml Katherin 1 Applic RECTAL PRN Dulcolax Supp (Bisacodyl) 10 Mg Supp 10 Mg RECTAL IN THE AM PRN Citroma Liq (Magnesium Citrate) 300 Ml Liq 300 Ml PO IN THE AM PRN Ascorbic Acid 500 Mg Tab 500 Mg PO DAILY Tylenol (Acetaminophen) 325 Mg Tab 650 Mg PO Q4H PRN Gabapentin 600 Mg Tab 600 Mg PO QID Pantoprazole (Pantoprazole Sodium) 40 Mg Tab 40 Mg PO DAILY@1600 Review of Systems Except as stated in HPI: all other systems reviewed are Neg Physical Exam Narrative GENERAL: Well-developed, overly nourished, in no acute distress, and non-ill appearing. SKIN: Focused skin assessment warm and dry. Well healing wound noted left posterior calcaneus. It is pink without drainage. There is no crepitus erythematous around it. Sutures are in place that are dry clean and intact. HEAD: Atraumatic. Normocephalic. EYES: Pupils equal and round. EOMI. No scleral icterus. No injection or drainage. ENT: No nasal bleeding or discharge. Mucous membranes pink and moist. NECK: Trachea midline. Supple. No nuclear rigidity. CARDIOVASCULAR: Regular rate and rhythm. No murmur appreciated. RESPIRATORY: No accessory muscle use. No respiratory distress. Decreased breath sounds throughout. Breath sounds equal bilaterally. MUSCULOSKELETAL: No obvious deformities. No clubbing. No cyanosis. No edema. Full range of motion. NEUROLOGICAL: Awake and alert. No obvious cranial nerve deficits. Motor grossly within normal limits. Normal speech. PSYCHIATRIC: Appropriate mood and affect; insight and judgment normal. Data Data Last Documented VS Vital Signs Date Time Temp Pulse Resp B/P (MAP) Pulse Ox O2 Delivery O2 Flow Rate FiO2 09/10/17 14:40 95 Nasal Cannula 3.00 09/10/17 14:23 104 16 164/74 (104) 09/10/17 14:21 97.4 Orders Orders Complete Blood Count With Diff (09/10/17 14:29) Basic Metabolic Panel (Bmp) (09/10/17 14:29) B-Type Natriuretic Peptide (09/10/17 14:29) Act Partial Throm Time (Ptt) (09/10/17 14:29) Prothrombin Time / Inr (Pt) (09/10/17 14:29) Magnesium (Mg) (09/10/17 14:29) Iv Access Insert/Monitor (09/10/17 14:29) Electrocardiogram (09/10/17 14:29) Ecg Monitoring (09/10/17 14:29) Oximetry (09/10/17 14:29) Oxygen Administration (09/10/17 14:29) Chest, Single Ap (09/10/17 14:29) Methylprednisolone So Succ Inj (Solumedr (09/10/17 14:30) Albuterol-Ipratropium Neb (Duoneb Neb) (09/10/17 14:30) Lactic Acid Sepsis Protocol (09/10/17 15:40) Blood Culture (09/10/17 15:40) Piperacil-Tazo 4.5 Gm Premix (Zosyn 4.5 (09/10/17 15:45) Azithromycin Inj (Zithromax Inj) (09/10/17 15:45) Sodium Chlor 0.9% 1000 Ml Inj (Ns 1000 M (09/10/17 16:00) Ondansetron Inj (Zofran Inj) (09/10/17 16:00) Morphine Inj (Morphine Inj) (09/10/17 16:00) (Hub Use Only)Inp Phy Cons/Ref (09/10/17 ) Consult Infectious Disease (09/10/17 ) Consult Podiatry (09/10/17 ) Admit Order (Ed Use Only) (09/10/17 16:17) Vital Signs (Adult) Q4H (09/10/17 16:19) Diet 1999 Ada Cons Carb (09/10/17 Dinner) Activity Oob With Assistance (09/10/17 16:19) Notify Dr: Other (09/10/17 16:19) Labs Laboratory Tests Test 09/10/17 14:30 White Blood Count 20.0 TH/MM3 Red Blood Count 3.64 MIL/MM3 Hemoglobin 8.7 GM/DL Hematocrit 27.8 % Mean Corpuscular Volume 76.4 FL Mean Corpuscular Hemoglobin 23.9 PG Mean Corpuscular Hemoglobin Concent 31.3 % Red Cell Distribution Width 20.8 % Platelet Count 583 TH/MM3 Mean Platelet Volume 7.7 FL Neutrophils (%) (Auto) 77.4 % Lymphocytes (%) (Auto) 15.1 % Monocytes (%) (Auto) 5.4 % Eosinophils (%) (Auto) 1.0 % Basophils (%) (Auto) 1.1 % Neutrophils # (Auto) 15.5 TH/MM3 Lymphocytes # (Auto) 3.0 TH/MM3 Monocytes # (Auto) 1.1 TH/MM3 Eosinophils # (Auto) 0.2 TH/MM3 Basophils # (Auto) 0.2 TH/MM3 CBC Comment DIFF FINAL Differential Comment Prothrombin Time 12.0 SEC Prothromb Time International Ratio 1.1 RATIO Activated Partial Thromboplast Time 31.3 SEC Blood Urea Nitrogen 21 MG/DL Creatinine 0.63 MG/DL Random Glucose 149 MG/DL Calcium Level 8.3 MG/DL Magnesium Level 2.1 MG/DL Sodium Level 138 MEQ/L Potassium Level 4.2 MEQ/L Chloride Level 103 MEQ/L Carbon Dioxide Level 23.8 MEQ/L Anion Gap 11 MEQ/L Estimat Glomerular Filtration Rate 133 ML/MIN B-Type Natriuretic Peptide 244 PG/ML MDM Medical Decision Making Medical Screen Exam Complete: Yes Emergency Medical Condition: Yes Interpretation(s) EKG reviewed by Dr. Hawk shows sinus tachycardia with ventricular rate of 103. No STEMI. Differential Diagnosis COPD exacerbation, pneumonia, metabolic disturbance, respiratory acidosis, respiratory alkalosis, arrhythmia, other Narrative Course Patient was seen and exam. Initial laboratory and radiological studies were ordered. Patient was given 2 nebs and Solu-Medrol. After reviewing chest x-ray , lactic acid and blood cultures were added along with antibiotics for hospital- acquired pneumonia. Patient was reassessed reports minimal improvement of his symptoms with breathing treatment. Discussed all findings and plan care of patient, who is agreeable for admission. All questions were answered. Discussed patient with Dr. Hawk, who saw and evaluate the patient is in agreement with plan of care and disposition. Discussed patient with hospitalist who is agreeable to admit the patient. Sepsis Criteria SIRS Criteria (2 or more): Heart rate over 90, WBC > 30444, < 4000 or > 10% bands Sepsis Criteria (SIRS+source): Infect source susp/known Criteria Outcome: Meets sepsis criteria Physician Communication Physician Communication [id number] Ayon, who is agreeable to admit the patient. Diagnosis Primary Impression: Sepsis Qualified Codes: A41.9 - Sepsis, unspecified organism Additional Impression: Hospital-acquired pneumonia Admitting Information Admitting Physician Requests: Admit Condition: Stable Ad Hunt Sep 10, 2017 14:48
--- NOTE | 2017-09-10 14:50 | PD ---
Physical Exam Date Seen by Provider: Sep 10, 2017 Narrative Dyspnea Data Data Last Documented VS Vital Signs Date Time Temp Pulse Resp B/P (MAP) Pulse Ox O2 Delivery O2 Flow Rate FiO2 09/10/17 14:40 95 Nasal Cannula 3.00 09/10/17 14:23 104 16 164/74 (104) 09/10/17 14:21 97.4 Orders Orders Complete Blood Count With Diff (09/10/17 14:29) Basic Metabolic Panel (Bmp) (09/10/17 14:29) B-Type Natriuretic Peptide (09/10/17 14:29) Act Partial Throm Time (Ptt) (09/10/17 14:29) Prothrombin Time / Inr (Pt) (09/10/17 14:29) Magnesium (Mg) (09/10/17 14:29) Iv Access Insert/Monitor (09/10/17 14:29) Electrocardiogram (09/10/17 14:29) Ecg Monitoring (09/10/17 14:29) Oximetry (09/10/17 14:29) Oxygen Administration (09/10/17 14:29) Chest, Single Ap (09/10/17 14:29) Methylprednisolone So Succ Inj (Solumedr (09/10/17 14:30) Albuterol-Ipratropium Neb (Duoneb Neb) (09/10/17 14:30) MDM Supervised Visit with JOSTIN: Yes Narrative Course I, Dr. Hawk, have reviewed the advance practice practitioner's documentation and am in agreement, met with the patient face to face, made the diagnosis, and the medical decision making was done by me. *My assessment and Findings: The patient does not appear to be in respiratory distress. His lungs sound clear. Please see Miguelito Hunt PA-C's note for results of laboratory and radiographic evaluation, ED course, final diagnosis and disposition Nita Hawk MD Sep 10, 2017 14:50
[2017-09-10] MEDS: RESP: ALBUTEROL 2.5 MG/IPRATROPIUM 0.5 MG NEB (SCH) INH ×2 (14:59→15:00)
[2017-09-10 15:07] LABS: AUTOMATED NEUTROPHIL # 15.5 TH/MM3 (1.8-7.7); BASOPHIL # 0.2 TH/MM3 (0-0.2); BASOPHIL % 1.1 % (0.0-2.0); EOSINOPHIL # 0.2 TH/MM3 (0-0.4); HEMATOCRIT 27.8 % (39.0-51.0); HEMO FLAGS DIFF FINAL; LYMPH % 15.1 % (9.0-44.0); MEAN CELL VOLUME 76.4 FL (80.0-100.0); MEAN CORPUSCULAR HEMOGLOBIN 23.9 PG (27.0-34.0); MEAN CORPUSCULAR HGB CONC 31.3 % (32.0-36.0); MONO % 5.4 % (0.0-8.0); NEUT % 77.4 % (16.0-70.0); PLATELET COUNT 583 TH/MM3 (150-450); RED BLOOD COUNT 3.64 MIL/MM3 (4.50-5.90); RED CELL DISTRIBUTION WIDTH 20.8 % (11.6-17.2)
[2017-09-10 15:19] LABS: BICARBONATE 23.8 MEQ/L (21.0-32.0); MAGNESIUM 2.1 MG/DL (1.5-2.5); POTASSIUM 4.2 MEQ/L (3.5-5.1)
[2017-09-10 15:24] LABS: APTT (PATIENT) 31.3 SEC (24.3-30.1); INTERNATIONAL NORMALIZED RATIO 1.1 RATIO
[2017-09-10] MEDS ORDERED: PIPERACIL-TAZO 4.5 GM PREMIX 100 ML IV ONE (15:45)
[2017-09-10] MEDS ORDERED: AZITHROMYCIN INJ 500 MG in SODIUM CHLOR 0.9% 250 ML INJ 250 ML IV ONE (15:45)
[2017-09-10] MEDS ORDERED: MORPHINE SULFATE 2 MG/ML INJ IV PUSH ONE (16:00)
[2017-09-10] MEDS ORDERED: SODIUM CHLOR 0.9% 1000 ML INJ 1,000 ML IV ONE (16:00)
[2017-09-10] MEDS ORDERED: ONDANSETRON HCL 4 MG/2 ML VIAL IV PUSH ONE (16:00)
[2017-09-10] MEDS ORDERED: NSFLUSH5 IV FLUSH (16:02)
[2017-09-10] MEDS ORDERED: ENEMENE5 RECTAL (16:02)
[2017-09-10] MEDS ORDERED: TYLE325T PO (16:02)
[2017-09-10] MEDS ORDERED: CITRSOL4 PO (16:02)
[2017-09-10] MEDS ORDERED: NICO4LOZ BUCCAL (16:02)
[2017-09-10] MEDS ORDERED: MULTTAB62 PO (16:02)
[2017-09-10] MEDS ORDERED: MILKSUS PO (16:02)
[2017-09-10] MEDS ORDERED: HUMALOG SQ (16:02)
[2017-09-10] MEDS ORDERED: ASCO500T PO (16:02)
[2017-09-10] MEDS ORDERED: DULC10SU3 RECTAL (16:02)
[2017-09-10] MEDS ORDERED: NICOTINE 4 MG/GUM CHEW PRN (16:15)
[2017-09-10] MEDS ORDERED: NALOXONE HCL 0.4 MG/ML AMP IV PUSH PRN (16:30)
[2017-09-10] MEDS ORDERED: ENALAPRILAT 1.25 MG/ML VIAL IV PUSH PRN (16:30)
[2017-09-10] MEDS ORDERED: ACETAMINOPHEN 325 MG TAB PO PRN ×2 (16:30)
[2017-09-10] MEDS ORDERED: GLUCAGON 1 MG/ML VIAL OTHER PRN (16:30)
[2017-09-10] MEDS ORDERED: ACETAMINOPHEN/HYDROcodone 325 MG/7.5 MG TAB PO PRN (16:30)
[2017-09-10] MEDS ORDERED: cloNIDine HCL 0.1 MG TAB PO PRN (16:30)
[2017-09-10] MEDS ORDERED: hydrALAZINE HCL 20 MG/ML VIAL IV PUSH PRN (16:30)
[2017-09-10] MEDS ORDERED: ACETAMINOPHEN/HYDROcodone 325 MG/5 MG TAB PO PRN (16:30)
[2017-09-10] MEDS ORDERED: ONDANSETRON HCL 4 MG/2 ML VIAL IVP PRN (16:30)
[2017-09-10] MEDS ORDERED: MAGNESIUM HYDROXIDE SUSP 30 ML CUP PO PRN (16:30)
[2017-09-10] MEDS ORDERED: DEXTROSE 50% IN WATER 50 ML SYRINGE IV PUSH PRN (16:30)
[2017-09-10] MEDS ORDERED: SENNOSIDES 8.6 MG TAB PO PRN (16:30)
--- NOTE | 2017-09-10 16:57 | HHI.HP ---
HPI [facility] Primary Care Physician Rey Hernandez MD Admission Diagnosis sepsis, HAP Diagnoses: Chief Complaint: Melisa of breath Travel History International Travel<30 Days: No Contact w/Intl Traveler <30 Da: No Traveled to Known Affected Are: No Sepsis Criteria SIRS Criteria (2 or more): Heart rate over 90, WBC > 67248, < 4000 or > 10% bands Sepsis Criteria (SIRS+source): Infect source susp/known Criteria Outcome: Meets sepsis criteria History of Present Illness This is a 52-year-old male with a history of COPD, diabetes mellitus, PAD, chronic pain, arthritis, CVA, hyperlipidemia, GERD, hypertension and neuropathy. He presents to the emergency department complaining of shortness of breath for the past 2 days associated with nonproductive cough and chills. Chest x-ray shows consolidation in the right lung base and has been started Zithromax and Zosyn. He also has a left heel wound being treated for cellulitis with IM Rocephin and Diflucan. All other systems reviewed negative Review of Systems Except as stated in HPI: all other systems reviewed are Neg Past Family Social History Past Medical History As previously mentioned Past Surgical History As previously mentioned. Blood clot removed right arm, left leg wound debridement and lower extremity angioplasty Reported Medications Reported Meds & Active Scripts Active Finasteride 5 Mg Tab 5 Mg PO DAILY Do not crush. Levemir Inj (Insulin Detemir) 1,000 unit/ 10 ML Vial 30 Units SQ BID Do not mix with any other Insulin. Aspirin Low Strength (Aspirin) 81 Mg Chew 81 Mg PO DAILY Norvasc (Amlodipine Besylate) 5 Mg Tab 5 Mg PO BID Hydralazine HCl 25 Mg Tablet 25 Mg PO Q8HR Atorvastatin (Atorvastatin Calcium) 40 Mg Tab 40 Mg PO DAILY Hydrocodone-Acetaminophen 10-325 mg Tab 1 Tab PO Q4H PRN DO NOT USE THIS MEDICINE IF YOU WILL DRIVE A CAR OR USE A MACHINE, ONLY USE IT WHEN RESTING AT HOME. Ceftriaxone Inj (Ceftriaxone Sodium) 2 Gram Inj 2 Gm IM Q24H 28 Days Fluconazole 200 Mg Tab 200 Mg PO DAILY 30 Days Reported Saline Flush (IV Flush) 0.9 % Inj 10 Ml IV FLUSH Q8HR Nicorette Kristin (Nicotine Polacrilex) 4 Mg Kristin 4 Mg BUCCAL Q2H PRN Multi-Vitamin/Minerals (Multiple Vitamins W/ Minerals) 1 Tab Tab 1 Tab PO DAILY Milk of Magnesia Liq (Magnesium Hydroxide) 400 Mg/5 Ml Susp 30 Ml PO HS PRN Humalog Inj (Insulin Human Lispro) 1,000 Unit/10 Ml Vial 0-10 Units SQ ACHS Sliding Scale: 0-200=0 units, 201-250=2 units, 351-300=4 units, 301-350=6 units. 351-400=8 units, 401-450=10 units, <60 & >405 notify Enema Disposable (Sodium Phosphates) 19 Gram-7 Gram/118 Ml Katherin 1 Applic RECTAL PRN Dulcolax Supp (Bisacodyl) 10 Mg Supp 10 Mg RECTAL IN THE AM PRN Citroma Liq (Magnesium Citrate) 300 Ml Liq 300 Ml PO IN THE AM PRN Ascorbic Acid 500 Mg Tab 500 Mg PO DAILY Tylenol (Acetaminophen) 325 Mg Tab 650 Mg PO Q4H PRN Gabapentin 600 Mg Tab 600 Mg PO QID Pantoprazole (Pantoprazole Sodium) 40 Mg Tab 40 Mg PO DAILY@1600 Allergies: Coded Allergies: *MDRO Multi-Drug Resistant Organism (Verified Adverse Reaction, Unknown, 09/10/17) MRSA (arm wound) - 01/2016 MRSA (blood, urine, wound) - 06/2013 Family History Adopted Social History Does not drink recently quit smoking Physical Exam Vital Signs Vital Signs Date Time Temp Pulse Resp B/P (MAP) Pulse Ox O2 Delivery O2 Flow Rate FiO2 09/10/17 14:40 95 Nasal Cannula 3.00 09/10/17 14:30 93 Nasal Cannula 3.00 09/10/17 14:23 104 16 164/74 (104) 95 Nasal Cannula 3.00 09/10/17 14:21 97.4 104 16 164/74 (104) 88 Physical Exam GENERAL: This is a well-nourished, well-developed patient, in no apparent distress on nasal cannula. SKIN: No rashes, ecchymoses or lesions. Cool and dry. HEAD: Atraumatic. Normocephalic. No temporal or scalp tenderness. EYES: Pupils equal round and reactive. Extraocular motions intact. No scleral icterus. No injection or drainage. ENT: Nose without bleeding, purulent drainage or septal hematoma. Throat without erythema, tonsillar hypertrophy or exudate. Uvula midline. Airway patent. NECK: Trachea midline. No JVD or lymphadenopathy. Supple, nontender, no meningeal signs. CARDIOVASCULAR: Regular rate and rhythm without murmurs, gallops, or rubs. RESPIRATORY: Clear to auscultation. Decreased Breath sounds equal bilaterally. No wheezes, rales, or rhonchi. GASTROINTESTINAL: Abdomen soft, non-tender, nondistended. No guarding. MUSCULOSKELETAL: Extremities without clubbing, cyanosis, but with bilateral lower extremity pitting edema. Left heel ulcer with clean base NEUROLOGICAL: Awake and alert. Cranial nerves II through XII intact. Motor and sensory grossly within normal limits. Five out of 5 muscle strength in all muscle groups. Normal speech. Laboratory Laboratory Tests Test 09/10/17 14:30 09/10/17 16:10 White Blood Count 20.0 Red Blood Count 3.64 Hemoglobin 8.7 Hematocrit 27.8 Mean Corpuscular Volume 76.4 Mean Corpuscular Hemoglobin 23.9 Mean Corpuscular Hemoglobin Concent 31.3 Red Cell Distribution Width 20.8 Platelet Count 583 Mean Platelet Volume 7.7 Neutrophils (%) (Auto) 77.4 Lymphocytes (%) (Auto) 15.1 Monocytes (%) (Auto) 5.4 Eosinophils (%) (Auto) 1.0 Basophils (%) (Auto) 1.1 Neutrophils # (Auto) 15.5 Lymphocytes # (Auto) 3.0 Monocytes # (Auto) 1.1 Eosinophils # (Auto) 0.2 Basophils # (Auto) 0.2 CBC Comment DIFF FINAL Differential Comment Prothrombin Time 12.0 Prothromb Time International Ratio 1.1 Activated Partial Thromboplast Time 31.3 Blood Urea Nitrogen 21 Creatinine 0.63 Random Glucose 149 Calcium Level 8.3 Magnesium Level 2.1 Sodium Level 138 Potassium Level 4.2 Chloride Level 103 Carbon Dioxide Level 23.8 Anion Gap 11 Estimat Glomerular Filtration Rate 133 B-Type Natriuretic Peptide 244 Date/Time Source Procedure Growth Status 09/10/17 15:50 Blood Peripheral Aerobic Blood Culture Pending Received 09/10/17 15:50 Blood Peripheral Anaerobic Blood Culture Pending Received Result Diagram: 09/10/17 1430 09/10/17 1430 Imaging Last Impressions Chest X-Ray 09/10/17 1429 Signed Impressions: Service Date/Time: Sunday, September 10, 2017 14:32 - CONCLUSION: 1. New consolidative opacity at the right lung base and small right effusion if concern for pneumonia. 2. Stable small left effusion with patchy opacity at the left lung base. MD Zaida Virk VTE Risk Assessment Caprini VTE Risk Assessment: Mod/High Risk (score >= 2) Caprini Risk Assessment Model Point Value = 1 Point Value = 2 Point Value = 3 Point Value = 5 Age 41-60 Minor surgery BMI > 25 kg/m2 Swollen legs Varicose veins or History of unexplained or recurrent spontaneous Oral contraceptives or hormone replacement Sepsis (< 1 month) Serious lung disease, including pneumonia (< 1 month) Abnormal pulmonary function Acute myocardial infarction Congestive heart failure (< 1 month) History of inflammatory bowel disease Medical patient at bed rest Age 61-74 Arthroscopic surgery Major open surgery (> 45 min) Laparoscopic surgery (> 45 min) Malignancy Confined to bed (> 72 hours) Immobilizing plaster cast Central venous access Age >= 75 History of VTE Family history of VTE Factor V Leiden Prothrombin [id number] Lupus anticoagulant Anticardiolipin antibodies Elevated serum homocysteine Heparin-induced thrombocytopenia Other congenital or acquired thrombophilia Stroke (< 1 month) Elective arthroplasty Hip, pelvis, or leg fracture Acute spinal cord injury (< 1 month) Prophylaxis Regimen Total Risk Factor Score Risk Level Prophylaxis Regimen 0-1 Low Early ambulation 2 Moderate Order ONE of the following: *Sequential Compression Device (SCD) *Heparin 5000 units SQ BID 3-4 Higher Order ONE of the following medications: *Heparin 5000 units SQ TID *Enoxaparin/Lovenox 40 mg SQ daily (WT < 150 kg, CrCl > 30 mL/min) *Enoxaparin/Lovenox 30 mg SQ daily (WT < 150 kg, CrCl > 10-29 mL/min) *Enoxaparin/Lovenox 30 mg SQ BID (WT < 150 kg, CrCl > 30 mL/min) AND/OR *Sequential Compression Device (SCD) 5 or more Highest Order ONE of the following medications: *Heparin 5000 units SQ TID (Preferred with Epidurals) *Enoxaparin/Lovenox 40 mg SQ daily (WT < 150 kg, CrCl > 30 mL/min) *Enoxaparin/Lovenox 30 mg SQ daily (WT < 150 kg, CrCl > 10-29 mL/min) *Enoxaparin/Lovenox 30 mg SQ BID (WT < 150 kg, CrCl > 30 mL/min) AND *Sequential Compression Device (SCD) Assessment and Plan Problem List: (1) Sepsis ICD Code: A41.9 - Sepsis, unspecified organism Status: Acute (2) Hospital-acquired pneumonia ICD Code: J18.9 - Pneumonia, unspecified organism Status: Acute Assessment and Plan This is a 52-year-old male with a history of COPD, diabetes mellitus, chronic pain, arthritis, CVA, hyperlipidemia, GERD, hypertension and neuropathy. He presents to the emergency department complaining of shortness of breath for the past 2 days associated with nonproductive cough and chills. Chest x-ray shows consolidation in the right lung base and has been started Zithromax and Zosyn. Sepsis secondary to hospital acquired pneumonia. Follow-up lactic acid and blood cultures. Obtain sputum and urinary Legionella and pneumococcal antigen. Continue IV Zosyn and Zithromax. Consult ID He also has a left heel wound being treated for osteomyelitis with IM Rocephin and Diflucan. Culture with strep bovis negative colonoscopy. Continue Diflucan and will hold Rocephin as patient will be on Zosyn. Consult podiatry and cigar roller Hypoxia with history of COPD. Continue nebulizations and oxygen to keep saturation at least 92% Diabetes mellitus. Resume home insulin. Monitor fingerstick with sliding scale coverage Hypertension. Uncontrolled. Restart home medication with as needed IV Vasotec , hydralazine and clonidine DVT prophylaxis with subcutaneous heparin Code Status full Discussed Condition With Patient and Problem Qualifiers (1) Sepsis: Qualified Codes: A41.9 - Sepsis, unspecified organism Yoseph Healy MD Sep 10, 2017 16:57
[2017-09-10] MEDS: GABAPENTIN 300 MG CAP PO SCH ×2 (17:42→21:12)
[2017-09-10] MEDS: INSULIN ASPART SUPPLEMENTAL SCALE SQ SCH ×2 (18:03→21:14)
[2017-09-10] MEDS: RESP: ALBUTEROL 2.5 MG/IPRATROPIUM 0.5 MG NEB (SCH) NEB (19:31)
[2017-09-10] MEDS: amLODIPine BESYLATE 5 MG TAB PO SCH (21:12)
[2017-09-10] MEDS: hydrALAZINE HCL 25 MG TAB PO SCH (21:12)
[2017-09-10] MEDS: DOCUSATE SODIUM 50 MG/SENNA 8.6 MG TAB PO SCH (21:12)
[2017-09-10] MEDS: HEPARIN SODIUM - SQ 10,000 UNITS/ML VIAL SQ SCH (21:13)
[2017-09-10] MEDS: INSULIN DETEMIR 100 UNITS/ML VIAL SQ SCH (21:14)
[2017-09-10] MEDS: SODIUM CHLORIDE 0.9% FLUSH 10 ML FLUSH IV FLUSH SCH (21:14)
[2017-09-10] MEDS: PIPERACIL-TAZO 3.375 GM PREMIX 50 ML IV SCH (21:49)
[2017-09-10] MEDS ORDERED: PANTOPRAZOLE SOD 40 MG DELAYED RELEASE TAB PO ONE (22:30)
[2017-09-10] MEDS: ACETAMINOPHEN/HYDROcodone 325 MG/10 MG TAB PO PRN (23:54)
[2017-09-11] VITALS (17 sets, daily range): BP systolic 122–158; BP diastolic 58–83; PULSE 85–104; RESP 16–28; TEMP 97.9–98.7; O2SAT 86–100
[2017-09-11] MEDS: RESP: ALBUTEROL 2.5 MG/3 ML NEB (PRN) NEB ×2 (01:50→04:57)
[2017-09-11] MEDS: PIPERACIL-TAZO 3.375 GM PREMIX 50 ML IV SCH (03:30)
[2017-09-11 05:45] LABS: AUTOMATED NEUTROPHIL # 13.6 TH/MM3 (1.8-7.7); BASOPHIL # 0.1 TH/MM3 (0-0.2); BASOPHIL % 0.9 % (0.0-2.0); HEMATOCRIT 24.3 % (39.0-51.0); HEMO FLAGS DIFF FINAL; LYMPH % 5.6 % (9.0-44.0); LYMPHOCYTE # 0.8 TH/MM3 (1.0-4.8); MEAN CELL VOLUME 77.6 FL (80.0-100.0); MEAN CORPUSCULAR HEMOGLOBIN 25.2 PG (27.0-34.0); MEAN CORPUSCULAR HGB CONC 32.5 % (32.0-36.0); MONO % 2.1 % (0.0-8.0); NEUT % 91.4 % (16.0-70.0); PLATELET COUNT 447 TH/MM3 (150-450); RED BLOOD COUNT 3.14 MIL/MM3 (4.50-5.90); RED CELL DISTRIBUTION WIDTH 21.2 % (11.6-17.2); WHITE BLOOD COUNT 14.9 TH/MM3 (4.0-11.0)
[2017-09-11] MEDS: hydrALAZINE HCL 25 MG TAB PO SCH ×3 (05:49→21:55)
[2017-09-11] MEDS: HEPARIN SODIUM - SQ 10,000 UNITS/ML VIAL SQ SCH ×3 (05:49→21:55)
[2017-09-11 06:17] LABS: BICARBONATE 22.9 MEQ/L (21.0-32.0); POTASSIUM 4.7 MEQ/L (3.5-5.1)
[2017-09-11] MEDS: INSULIN ASPART SUPPLEMENTAL SCALE SQ SCH ×4 (08:00→21:00)
[2017-09-11] MEDS: RESP: ALBUTEROL 2.5 MG/IPRATROPIUM 0.5 MG NEB (SCH) NEB ×4 (08:13→20:52)
[2017-09-11] MEDS ORDERED: methylPREDNISolone SOD SUCC 125 MG/2 ML VIAL IV PUSH STA (08:34)
[2017-09-11 08:47] LABS: BLOOD GAS BASE EXCESS -1.1 mmol/L (-2-2); BLOOD GAS CARBOXYHEMOGLOBIN 1.5 % (0-4); BLOOD GAS HCO3 23 mmol/L (22-26); BLOOD GAS METHEMOGLOBIN 0.9 % (0-2); BLOOD GAS O2 HGB SATURATION 94 % (90-100); BLOOD GAS OXYGEN CONTENT 10.8 Vol % (12.0-20.0); BLOOD GAS PCO2 39 mmHg (38-42); BLOOD GAS PO2 88 mmHg (61-120); BLOOD GAS TOTAL HGB 8.1 G/DL (12.0-16.0); CRITICAL VALUE NO; DRAW SITE RT RADIAL; FIO2 100 %; LITER FLOW 15 L/M; NUMBER OF ARTERIAL PUNCTURES 1; STAT YES; TEMP CORR TO 98.6; ULNAR PULSE PRESENT
--- NOTE | 2017-09-11 08:54 | HHI.PR ---
Subjective Remarks Follow-up pneumonia. I was called to see patient emergently secondary to respiratory distress. Halicat was also called. Ordered stat ABG and chest x- ray. Worsening hypoxia now on nonrebreather. Patient states he was getting more short of breath. Discussed with , nursing staff and CCM(FYI only) Objective Vitals Vital Signs Date Time Temp Pulse Resp B/P (MAP) Pulse Ox O2 Delivery O2 Flow Rate FiO2 09/11/17 04:00 98.7 100 20 122/60 (80) 93 09/11/17 04:00 Nasal Cannula 3.50 09/11/17 01:56 92 Nasal Cannula 3.00 09/11/17 00:00 Nasal Cannula 3.50 Humidified 09/11/17 00:00 98.2 101 28 124/62 (82) 93 09/10/17 20:17 105 09/10/17 20:00 Nasal Cannula 3.50 09/10/17 19:40 97.9 105 24 137/63 (87) 93 09/10/17 19:31 97 Nasal Cannula 2.00 09/10/17 18:47 09/10/17 17:13 104 24 139/64 (89) 93 Nasal Cannula 3.50 09/10/17 14:40 95 Nasal Cannula 3.00 09/10/17 14:30 93 Nasal Cannula 3.00 09/10/17 14:23 104 16 164/74 (104) 95 Nasal Cannula 3.00 09/10/17 14:21 97.4 104 16 164/74 (104) 88 I/O 09/10/17 09/10/17 09/10/17 09/11/17 09/11/17 09/11/17 07:00 15:00 23:00 07:00 15:00 23:00 Intake Total 1400 ml 480 ml Output Total 800 ml Balance 1400 ml -320 ml Intake Oral 480 ml IV Total 1400 ml Output Urine Total 800 ml # Bowel Movements 0 Result Diagram: 09/11/1751909/11/17519 Imaging Last Impressions Chest X-Ray 09/10/17 1429 Signed Impressions: Service Date/Time: Sunday, September 10, 2017 14:32 - CONCLUSION: 1. New consolidative opacity at the right lung base and small right effusion if concern for pneumonia. 2. Stable small left effusion with patchy opacity at the left lung base. Stone Sexton MD Objective Remarks GENERAL: This is a well-nourished, well-developed critically ill patient, in respiratory distress on nonrebreather SKIN: No rashes, ecchymoses or lesions. Cool and diaphoretic HEAD: Atraumatic. Normocephalic. No temporal or scalp tenderness. EYES: Pupils equal round and reactive. Extraocular motions intact. No scleral icterus. No injection or drainage. ENT: Nose without bleeding, purulent drainage or septal hematoma. Throat without erythema, tonsillar hypertrophy or exudate. Uvula midline. Airway patent. NECK: Trachea midline. No JVD or lymphadenopathy. Supple, nontender, no meningeal signs. CARDIOVASCULAR: Regular rate and rhythm without murmurs, gallops, or rubs. RESPIRATORY: Decreased Breath sounds worse on the right lung base GASTROINTESTINAL: Abdomen soft, non-tender, nondistended. No guarding. MUSCULOSKELETAL: Extremities without clubbing, cyanosis, but with bilateral lower extremity pitting edema. Left heel ulcer with clean base NEUROLOGICAL: Awake and alert. Cranial nerves II through XII intact. Motor and sensory grossly within normal limits. Five out of 5 muscle strength in all muscle groups. Normal speech. Procedures none A/P Problem List: (1) Sepsis ICD Code: A41.9 - Sepsis, unspecified organism Status: Acute (2) Hospital-acquired pneumonia ICD Code: J18.9 - Pneumonia, unspecified organism Status: Acute Assessment and Plan This is a 52-year-old male with a history of COPD, diabetes mellitus, chronic pain, arthritis, CVA, hyperlipidemia, GERD, hypertension and neuropathy. He presents to the emergency department complaining of shortness of breath for the past 2 days associated with nonproductive cough and chills. Chest x-ray shows consolidation in the right lung base and has been started Zithromax and Zosyn. Acute respiratory failure secondary to pneumonia with history of COPD. He is hypoxic requiring nonrebreather mask. ABG pH of 7.4 PCO2 39 and PO2 of 88 on NRB. Start IV steroids. Repeat chest x-ray. BiPAP as needed. Patient will be transferred to ICU for close monitoring high likelihood of intubation and mechanical ventilation. Consult pulmonary Sepsis secondary to hospital acquired pneumonia. Lactic acid 1.3. Follow-up blood cultures, sputum and urinary Legionella and pneumococcal antigen. Increase IV Zosyn to 4.5 grams every 6 hours, start IV vancomycin and continue Zithromax. Consulted ID He also has a left heel wound being treated for osteomyelitis with IM Rocephin and Diflucan. Culture with strep bovis negative colonoscopy. Continue Diflucan and will hold Rocephin as patient will be on Zosyn. Consult podiatry and german instructor Diabetes mellitus. Uncontrolled Will adjust Levemir insulin depending on glycemic trends. Monitor fingerstick with sliding scale coverage Hypertension. Uncontrolled. Restart home medication with as needed IV Vasotec , hydralazine and clonidine DVT prophylaxis with subcutaneous heparin Discharge Planning Critical care time spent 35 minutes Problem Qualifiers (1) Sepsis: Qualified Codes: A41.9 - Sepsis, unspecified organism Yoseph Healy MD Sep 11, 2017 08:54
[2017-09-11] MEDS: INSULIN DETEMIR 100 UNITS/ML VIAL SQ SCH ×2 (09:00→21:00)
[2017-09-11] MEDS ORDERED: VANCOMYCIN INJ 1,350 MG in SODIUM CHLORID 0.9% 500 ML INJ 500 ML IV ONE (09:15)
[2017-09-11] MEDS ORDERED: Vancomycin Consult Pharmacy 1 EA OTHER SCH (09:15)
--- NOTE | 2017-09-11 09:27 | RADRPT ---
EXAM DATE/TIME: 09/11/2017 09:33 [facility] COMPARISON: CHEST SINGLE AP, August 24, 2017, 17:40. CHEST SINGLE AP, September 10, 2017, 14:32. INDICATIONS : Pneumonia. MEDICAL HISTORY : Cardiovascular disease. Hypertension Chronic obstructive pulmonary disease. Diabetes, skin cancer . SURGICAL HISTORY : None. ENCOUNTER: Initial ACUITY: 3 days PAIN SCORE: 0/10 LOCATION: Bilateral chest FINDINGS: Redemonstration of bilateral lower lobe airspace disease with associated small pleural effusions, sli ghtly enlarged on the right. Redemonstration of right-sided PICC line with tip obscured. Cardiomedias tinal contours are stable. Remainder of the exam is unchanged. CONCLUSION: 1. Right lower lobe airspace disease with mild interval progression of small associated pleural effus ion. 2. Stable left lower lobe airspace disease and associated very small pleural effusion. Eder Biggs MD on September 11, 2017 at 9:22 Board Certified Radiologist. This report was verified electronically.
[2017-09-11] MEDS: FLUCONAZOLE 200 MG TAB PO SCH (09:46)
[2017-09-11] MEDS: ASCORBIC ACID 500 MG TAB PO SCH (09:46)
[2017-09-11] MEDS: FINASTERIDE 5 MG TAB PO SCH (09:46)
[2017-09-11] MEDS: MULTIVITAMINS/MINERALS THERAPEUTIC TAB PO SCH (09:46)
[2017-09-11] MEDS: ATORVASTATIN 40 MG TAB PO SCH (09:46)
[2017-09-11] MEDS: ASPIRIN 81 MG CHEW TAB PO SCH (09:46)
[2017-09-11] MEDS: GABAPENTIN 300 MG CAP PO SCH ×4 (09:47→21:55)
[2017-09-11] MEDS: PIPERACIL-TAZO 4.5 GM PREMIX 100 ML IV SCH ×3 (09:47→22:02)
[2017-09-11] MEDS: amLODIPine BESYLATE 5 MG TAB PO SCH ×2 (09:47→21:55)
[2017-09-11] MEDS: SODIUM CHLORIDE 0.9% FLUSH 10 ML FLUSH IV FLUSH PRN (09:47)
[2017-09-11] MEDS: DOCUSATE SODIUM 50 MG/SENNA 8.6 MG TAB PO SCH ×2 (09:47→21:54)
[2017-09-11] MEDS: SODIUM CHLORIDE 0.9% FLUSH 10 ML FLUSH IV FLUSH SCH ×2 (09:47→21:54)
[2017-09-11] MEDS: ACETAMINOPHEN/HYDROcodone 325 MG/10 MG TAB PO PRN ×3 (09:59→17:45)
[2017-09-11] MEDS: VANCOMYCIN INJ 1,400 MG in SODIUM CHLORID 0.9% 500 ML INJ 500 ML IV SCH ×2 (11:16→23:33)
[2017-09-11] MEDS: methylPREDNISolone SOD SUCC 40 MG/1 ML VIAL IV PUSH SCH ×3 (11:16→23:34)
--- NOTE | 2017-09-11 12:44 | EKG ---
Date Performed: 09/10/2017 Time Performed: 14:54:38 PTAGE: 52 years EKG: SINUS TACHYCARDIA ABNORMAL ECG PREVIOUS TRACING : 02/07/2017 13.17 Compared to prior tracing no significant change DOCTOR: Mervin Murray Interpretating Date/Time 09/11/2017 12:43:18
[2017-09-11 13:57] LABS: BLOOD GAS BASE EXCESS -2.4 mmol/L (-2-2); BLOOD GAS CARBOXYHEMOGLOBIN 1.2 % (0-4); BLOOD GAS HCO3 22 mmol/L (22-26); BLOOD GAS METHEMOGLOBIN 1.2 % (0-2); BLOOD GAS O2 HGB SATURATION 92 % (90-100); BLOOD GAS PCO2 40 mmHg (38-42); BLOOD GAS PO2 78 mmHg (61-120); BLOOD GAS TOTAL HGB 8.4 G/DL (12.0-16.0); CRITICAL VALUE NO; DRAW SITE RRA; NUMBER OF ARTERIAL PUNCTURES 1; STAT YES; TEMP CORR TO 98.6; ULNAR PULSE PRESENT
[2017-09-11] MEDS: LORazepam 2 MG/ML VIAL IV PUSH PRN ×2 (14:13→23:33)
--- NOTE | 2017-09-11 14:46 | PD.ID.CON ---
History of Present Illness Service ID Consult Requested By Dr Helay Reason for Consult HAP DFI Primary Care Physician Rey Hernandez MD Diagnoses: History of Present Illness pt known to me from his previous recent admission Pt seen in room 504 around 1430 52 M c L heel osteo, sp part calcanectomy, He grew out S bovis from bone bx and 2 separate blood cultures He also repeatedly grew out C tropicalis from heel clx His AUSTEN was negative for vegetation, colonoscopy with small adenomatous polip He was d/c'd on CFTX and fluconazole His repeat blood clx were negative Pt presented with 2 days of SOB sp halicat this am 2/2 hypoxia Pt endorses chills no fever, dry cough At the time of my exam pt was on part NRB His CXR showed new RLL PNA Pt is afebrile and his WBC on presentation were 20K Review of Systems Respiratory: COMPLAINS OF: Cough, Shortness of breath Cardiovascular: COMPLAINS OF: Dyspnea on Exertion Except as stated in HPI: all other systems reviewed are Neg Past Family Social History Allergies: Coded Allergies: *MDRO Multi-Drug Resistant Organism (Verified Adverse Reaction, Unknown, 09/10/17) MRSA (arm wound) - 01/2016 MRSA (blood, urine, wound) - 06/2013 Past Medical History HTN, DM, Peripheral Neuropathy, PVD and Chronic Left Foot Ulcer Past Surgical History Dental Extraction, LLE Debridement L partial calcanectomy Active Ordered Medications Medications where reviewed in EMR; neo love Family History Reviewed. Non-Contributory to current condition Social History Negative for alcohol or drugs. Smokes 1/2ppd. Physical Exam Vital Signs Vital Signs Date Time Temp Pulse Resp B/P (MAP) Pulse Ox O2 Delivery O2 Flow Rate FiO2 09/11/17 10:31 95 Partial Rebreather 09/11/17 10:00 104 09/11/17 10:00 98.4 104 25 124/64 (84) 100 09/11/17 09:00 98 Non-Rebreather 15.00 09/11/17 04:00 98.7 100 20 122/60 (80) 93 09/11/17 04:00 Nasal Cannula 3.50 09/11/17 01:56 92 Nasal Cannula 3.00 09/11/17 00:00 Nasal Cannula 3.50 Humidified 09/11/17 00:00 98.2 101 28 124/62 (82) 93 09/10/17 20:17 105 09/10/17 20:00 Nasal Cannula 3.50 09/10/17 19:40 97.9 105 24 137/63 (87) 93 09/10/17 19:31 97 Nasal Cannula 2.00 09/10/17 18:47 09/10/17 17:13 104 24 139/64 (89) 93 Nasal Cannula 3.50 Physical Exam CONSTITUTIONAL/GENERAL: This is an adequately nourished patient, in no apparent distress. TUBES/LINES/DRAINS: SKIN: No jaundice, rashes, or lesions. Skin temperature appropriate. Not diaphoretic. HEAD: Atraumatic. Normocephalic. EYES: Pupils equal and round and reactive. Extraocular motions intact. No scleral icterus. No injection or drainage. Fundi not examined. ENT: Hearing grossly normal. Nose without bleeding or purulent drainage. Throat without visible erythema, exudates, masses, or lesions. Moist mucosae Edentulous NECK: Trachea midline. Supple, nontender. No palpable thyroid enlargement or nodularity. CARDIOVASCULAR: Regular rate and rhythm without murmurs, gallops, or rubs. No JVD. Peripheral pulses symmetric. RESPIRATORY/CHEST: Symmetric, +labored respirations. Abdominal breathing +, Clear to auscultation. Breath sounds equal bilaterally. No wheezes, rales, or rhonchi. GASTROINTESTINAL: Abdomen soft, non-tender, nondistended. No hepato-splenomegaly , or palpable masses. No guarding. Bowel sounds present. GENITOURINARY: Without palpable bladder distension. Beckman catheter in place with clear light yellow urine MUSCULOSKELETAL: Extremities without clubbing, cyanosis, 2-3 + pittingedema. L Heal wound is clean, dry, granulating nicely no odor, no purulence LYMPHATICS: No palpable cervical or supraclavicular adenopathy. NEUROLOGICAL: Awake and alert. Motor and sensory grossly within normal limits. Follows commands. Clear speech. Moves all extremities. PSYCHIATRIC: No obvious anxiety/depression. no apparent hallucinations or other psychotic thought process. Laboratory Laboratory Tests Test 09/10/17 16:10 09/11/17 05:20 09/11/17 08:37 09/11/17 13:27 Lactic Acid Level 1.3 White Blood Count 14.9 Red Blood Count 3.14 Hemoglobin 7.9 Hematocrit 24.3 Mean Corpuscular Volume 77.6 Mean Corpuscular Hemoglobin 25.2 Mean Corpuscular Hemoglobin Concent 32.5 Red Cell Distribution Width 21.2 Platelet Count 447 Mean Platelet Volume 7.9 Neutrophils (%) (Auto) 91.4 Lymphocytes (%) (Auto) 5.6 Monocytes (%) (Auto) 2.1 Eosinophils (%) (Auto) 0.0 Basophils (%) (Auto) 0.9 Neutrophils # (Auto) 13.6 Lymphocytes # (Auto) 0.8 Monocytes # (Auto) 0.3 Eosinophils # (Auto) 0.0 Basophils # (Auto) 0.1 CBC Comment DIFF FINAL Differential Comment Blood Urea Nitrogen 29 Creatinine 1.18 Random Glucose 352 Calcium Level 8.2 Sodium Level 135 Potassium Level 4.7 Chloride Level 102 Carbon Dioxide Level 22.9 Anion Gap 10 Estimat Glomerular Filtration Rate 65 Blood Gas Puncture Site RT RADIAL RRA Blood Gas Patient Temperature 98.6 98.6 Blood Gas HCO3 23 22 Blood Gas Base Excess -1.1 -2.4 Blood Gas Oxygen Saturation 94 92 Arterial Blood pH 7.40 7.36 Arterial Blood Partial Pressure CO2 39 40 Arterial Blood Partial Pressure O2 88 78 Arterial Blood Oxygen Content 10.8 11.0 Arterial Blood Carboxyhemoglobin 1.5 1.2 Arterial Blood Methemoglobin 0.9 1.2 Blood Gas Hemoglobin 8.1 8.4 Oxygen Delivery Device Non-Rebreathing Mask Partial Rebreather Blood Gas Liter Flow 15 Blood Gas Inspired Oxygen 100 Date/Time Source Procedure Growth Status 09/10/17 15:50 Blood Peripheral Aerobic Blood Culture - Preliminary NO GROWTH IN 1 DAY Resulted 09/10/17 15:50 Blood Peripheral Anaerobic Blood Culture - Preliminary NO GROWTH IN 1 DAY Resulted Result Diagram: 09/11/17 0520 09/11/17519 Imaging Last Impressions Chest X-Ray 09/11/17 0000 Signed Impressions: Service Date/Time: Monday, September 11, 2017 09:33 - CONCLUSION: 1. Right lower lobe airspace disease with mild interval progression of small associated pleural effusion. 2. Stable left lower lobe airspace disease and associated very small pleural effusion. Eder Biggs MD Assessment and Plan Assessment and Plan DFI, L heel, Strep bovis Crystal tropicalis Osteomyelitis, L calcaneous, Strep bovis Previously reported bacteremia Strep bovis -AUSTEN neg for endocarditis HAP RLL - new cont current abx chk sputum clx fu blood clx chk leg/pneumoc/flu antigens Discussed Condition With Reene Paul MD Sep 11, 2017 14:46
[2017-09-11 15:17] LABS: BLOOD, URINE NEG (NEG); GLUCOSE,URINE 1000 mg/dL (NEG); KETONE, URINE NEG (NEG); NITRITE,URINE NEG (NEG); URINE COLOR YELLOW (YELLW/STRAW)
[2017-09-11 15:18] LABS: COMMENT (UR) CATH-CULT NOT IND; CULTURE IF INDICATED CATH CULTURE NOT IND
[2017-09-11] MEDS: AZITHROMYCIN INJ 500 MG in SODIUM CHLOR 0.9% 250 ML INJ 250 ML IV SCH (16:00)
--- NOTE | 2017-09-11 18:13 | PD.WCN.NOT ---
Wound Consult Description: Received consult from Doctor Monet L heel VAC placement. Communicated with: FREDDY [place] 5th [place] [facility] [place]: Please change wound VAC dressing to L heel Monday, Monday and Monday, with settings of 125 mm/hg continuous low suction. Neg Pressure Wound Therapy Wound Location Wound Location: L heel Wound Description Length: 5cm Width: 6.3cm Depth: ~1.5cm Wound bed appearance: Wound bed presents with ~90% pale red granulation tissue and ~10% yellow tissue. Wound has minimal sero-sanguinous drainage that is without odor. Periwound appearance: Unremarkable Settings Suction: 125 mmHg, Continuous Intensity: Low Other Information: Bridged, Windowpaned Foam type: Black Number of pieces: 1 Additonal Information [place] 5th [place] [facility] [place] VAC [place]. Cleansed wound to L heel with normal saline before patting dry. Applied cavilon skin prep to periwound before window paning wound with VAC drape. Drape was then bridged to L dorsal foot from wound. One piece of Granufoam was cut to fit wound bed and applied to wound. One strip of granufoam was then cut and bridged from wound to dorsal L foot over VAC drape. Mushroom cap of granufoam was applied to bridged granufoam on L dorsal foot with Sensi trac pad. All exposed foam was then covered with VAC drape to seal.Wound VAC is suctioning at 125 mm/hg continuous low suction without leaks. Next wound VAC change is due on Monday09/13/2017. Dipti [facility]on [facility] Sep 11, 2017 18:13
[2017-09-11] MEDS ORDERED: CHLORHEXIDINE GLUCONATE 2 % 1 PACK (2 CLOTHS)(extra cloths) TOPICAL PRN (19:00)
--- NOTE | 2017-09-11 21:59 | MB ---
cc: ELY JIN DATE OF CONSULTATION 09/11/2017 CHIEF COMPLAINT The patient is status post left foot calcanectomy and Achilles tendon debridement approximately one month ago with Dr. Julieta Greer. HISTORY OF PRESENT ILLNESS Mr. Lehman is a 52-year-old male patient known to me from a previous admission. He had a severe heel ulceration as well as an Achilles rupture after a revascularization with Dr. Lewis. He had a partial calcanectomy and Achilles tendon debridement with Dr. Julieta Greer, this was approximately one month ago. The patient has not since followed up with Dr. Greer in the office. He was admitted for shortness of breath. Currently is challenging to get information from as he is receiving oxygen treatment. Most information is taken from his hospital chart. The rest of the patient's. No Vital signs, temperature is 98.4. Pulse is 104, blood pressure 124/64, pulse ox 100% O2 on non-rebreather. LABORATORY DATA White count is 14.9 down from 20. Hemoglobin 7.9, hematocrit 24.3, platelets 447. Sodium 135, potassium 4.7, chloride 102, carbon dioxide 22.9, BUN 29. Random glucose 352. Blood cultures negative x1 day. PHYSICAL EXAMINATION The patient has a wound VAC very recently placed on the left posterior heel. Alanna wound skin shows no erythema. There is no malodor. There are sutures are intact to well coapted skin edges. There is mild edema. The foot hangs in a plantar flexor position with minimal ability to dorsiflex the foot. ASSESSMENT AND PLAN 1. Left foot status post partial calcanectomy and Achilles tendon debridement. Wound VAC left intact as wound care nurse Dipti Bergeron and infectious disease Dr. Garcia both vouched that the wound is healthy and granular in nature. Feel it is doing more harm than good to remove the VAC so soon after being placed. We will try to coordinate with Ms. Bergeron for a better time to evaluate the wound. We will plan to remove sutures this week. The patient is nonweightbearing to that extremity without special events assistant. No obvious signs of infection at this time based on what I could visualize. Thank you for this consultation and allowing me to be involved in this patient's care. Ely SINGH/KK /5:37 PM /9:48 PM MTDSantiago
[2017-09-11] MEDS: PANTOPRAZOLE SOD 40 MG DELAYED RELEASE TAB PO SCH (22:07)
[2017-09-12] VITALS (21 sets, daily range): BP systolic 139–166; BP diastolic 67–87; PULSE 85–100; RESP 15–33; TEMP 97.9–98.8; O2SAT 89–96
[2017-09-12] MEDS: CHLORHEXIDINE GLUCONATE 2 % 1 PACK (2 CLOTHS)(taper/protocol) TOPICAL SCH (04:00)
[2017-09-12] MEDS: PIPERACIL-TAZO 4.5 GM PREMIX 100 ML IV SCH ×2 (05:34→11:38)
[2017-09-12] MEDS: methylPREDNISolone SOD SUCC 40 MG/1 ML VIAL IV PUSH SCH ×3 (05:34→17:59)
[2017-09-12] MEDS: HEPARIN SODIUM - SQ 10,000 UNITS/ML VIAL SQ SCH ×3 (05:35→21:45)
[2017-09-12] MEDS: hydrALAZINE HCL 25 MG TAB PO SCH ×3 (05:35→21:45)
--- NOTE | 2017-09-12 07:51 | MB ---
cc: JORGE OGDEN,ЮЛИЯ Craven MD DATE OF CONSULTATION: 09/11/[address] Healy. REASON FOR CONSULTATION Evaluate for respiratory insufficiency. HISTORY OF PRESENT ILLNESS Mr. Lehman is a 52-year-old male with a history of diabetes mellitus, history of CVA, GERD, history of COPD. The patient had surgery on his left heel and he was in a detention. He has a VAC device. He was brought to the ER with worsening of his shortness of breath for the last two days. He has a cough. No fevers, chills or night sweats, no nausea or vomiting. It was noted when he eats he starts coughing. He was evaluated in the emergency room. CBC: WBC count is 14.9, hemoglobin 7.9, hematocrit 24.3, MCV 77, platelet count 447. Chemistry: Sodium 135, potassium 4.7, chloride 102, CO2 23, BUN 29, creatinine 1.18. Blood gas: pH 7.36, PCO2 40, PO2 78. Imaging: Chest x-ray shows right lower lobe airspace disease with mild progression. PAST MEDICAL HISTORY 1. History of CVA. 2. GERD. 3. Hypertension. 4. Diabetes mellitus. 5. PAD. 6. COPD. 7. History of left heel surgery. 8. History of MRSA infection in the past. MEDICATIONS He is currently takin. Protonix 40 mg a day. 2. Insulin 40 units twice a day. 3. Lorazepam 1 mg q.6h. 4. Solu-Medrol 40 mg q.6h. 5. Vancomycin IV. 6. Diflucan 200 mg a day. 7. Hydralazine 25 mg q.8h. 8. Heparin 5000 units q.8h. 9. Amlodipine 5 mg twice a day. ALLERGIES No known drug allergies. SOCIAL HISTORY He is . 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 History of smoking 1-2 packs. No alcohol abuse. FAMILY HISTORY He has no children. His has two children. REVIEW OF SYSTEMS He has been in the detention recently. He has a history of stroke. No DVT or pulmonary embolism. No malignancy. PHYSICAL EXAMINATION GENERAL: A moderately built, well-nourished male with mild to moderate shortness of breath. VITAL SIGNS: Blood pressure 145/83, heart rate 100, respirations 18, temperature 99. HEENT: Unremarkable. NECK: No JVP not raised. CHEST: Equal air entry. Rales on the right side. CV: S1, S2 normal. ABDOMEN: Benign. EXTREMITIES: He has swelling of the left leg and he has a VAC brain device on the left heel. IMPRESSION 1. Pneumonia. 2. Respiratory insufficiency. 3. Diabetes mellitus. 4. Peripheral arterial disease. 5. Coughing spells with eating, need to rule out possibility of aspiration. 6. Sepsis. PLAN 1. Continue present antibiotic per Infectious Disease recommendation. He is on a non-rebreather mask. Will use CPAP at nighttime. He likely has sleep apnea. 2. Speech therapy evaluation to make sure is able to swallow safely. 3. Check his culture. 4. Continue aerosol treatment. 5. Further treatment will depend on the course in the hospital. Thank you, Dr. Healy, for this consult. MD ELMA Dai/REGGIE /7:53 PM /7:29 AM
[2017-09-12] MEDS: RESP: ALBUTEROL 2.5 MG/IPRATROPIUM 0.5 MG NEB (SCH) NEB ×4 (07:57→20:50)
[2017-09-12] MEDS: INSULIN ASPART SUPPLEMENTAL SCALE SQ SCH ×4 (08:00→21:00)
[2017-09-12] MEDS: SODIUM CHLORIDE 0.9% FLUSH 10 ML FLUSH IV FLUSH SCH ×2 (09:00→19:34)
[2017-09-12] MEDS: INSULIN DETEMIR 100 UNITS/ML VIAL SQ SCH ×2 (09:00→21:00)
--- NOTE | 2017-09-12 10:11 | HHI.PR ---
Subjective Remarks Follow-up pneumonia and acute respiratory failure. Placed on BiPAP last night requiring a 4% oxygen. States his breathing better. According to his , he usually sleeps sitting up. Discussed with RN, obtain ABG and chest x-ray. I'm concerned of worsening respiratory status requiring intubation. This was relayed to his Objective Vitals Vital Signs Date Time Temp Pulse Resp B/P (MAP) Pulse Ox O2 Delivery O2 Flow Rate FiO2 09/12/17 07:57 95 85 09/12/17 07:00 Bi-Pap 85 09/12/17 06:00 96 09/12/17 05:14 92 85 09/12/17 04:40 89 Non-Rebreather 09/12/17 04:00 100 09/12/17 04:00 98.4 100 18 139/67 (91) 95 09/12/17 03:34 92 BiPAP 09/12/17 03:32 92 85 09/12/17 02:00 85 09/12/17 00:00 98.2 98 15 139/76 (97) 94 09/12/17 00:00 98 09/11/17 23:51 95 BiPAP 09/11/17 23:49 95 85 09/11/17 22:00 90 09/11/17 20:49 92 85 09/11/17 20:00 101 09/11/17 20:00 97.9 101 16 136/63 (87) 86 09/11/17 19:00 86 Non-Rebreather 15.00 09/11/17 18:00 100 18 145/83 (103) 91 09/11/17 18:00 100 09/11/17 17:00 101 16 140/79 (99) 96 09/11/17 17:00 101 09/11/17 16:00 98.1 85 17 125/58 (80) 90 09/11/17 16:00 85 09/11/17 15:00 89 09/11/17 15:00 89 16 129/59 (82) 94 09/11/17 14:00 99 09/11/17 14:00 99 19 97 09/11/17 13:00 101 09/11/17 13:00 101 22 158/76 (103) 94 09/11/17 12:00 98.3 98 25 88 09/11/17 12:00 98 09/11/17 10:31 95 Partial Rebreather I/O 09/11/17 09/11/17 09/11/17 09/12/17 09/12/17 09/12/17 07:00 15:00 23:00 07:00 15:00 23:00 Intake Total 480 ml 150 ml 580 ml 660 ml Output Total 800 ml 850 ml 550 ml Balance -320 ml 150 ml -270 ml 110 ml Intake Oral 480 ml 480 ml 60 ml IV Total 150 ml 100 ml 600 ml Output Urine Total 800 ml 850 ml 550 ml # Bowel Movements 0 0 0 Result Diagram: 09/11/17 0520 09/12/17 0521 Imaging Last Impressions Chest X-Ray 09/11/17 0000 Signed Impressions: Service Date/Time: Monday, September 11, 2017 09:33 - CONCLUSION: 1. Right lower lobe airspace disease with mild interval progression of small associated pleural effusion. 2. Stable left lower lobe airspace disease and associated very small pleural effusion. Eder Biggs MD Objective Remarks GENERAL: This is a well-nourished, well-developed critically ill patient, on BiPAP SKIN: No rashes, ecchymoses or lesions. Cool and diaphoretic CARDIOVASCULAR: Regular rate and rhythm without murmurs, gallops, or rubs. RESPIRATORY: Decreased Breath sounds worse on the right lung base GASTROINTESTINAL: Abdomen soft, non-tender, nondistended. No guarding. MUSCULOSKELETAL: Extremities without clubbing, cyanosis, but with bilateral lower extremity pitting edema. Left heel ulcer with clean base NEUROLOGICAL: Lethargic but easily arousable.. Cranial nerves II through XII intact. Motor and sensory grossly within normal limits. Five out of 5 muscle strength in all muscle groups. Normal speech. Procedures none A/P Problem List: (1) Sepsis ICD Code: A41.9 - Sepsis, unspecified organism Status: Acute (2) Hospital-acquired pneumonia ICD Code: J18.9 - Pneumonia, unspecified organism Status: Acute Assessment and Plan This is a 52-year-old male with a history of COPD, diabetes mellitus, chronic pain, arthritis, CVA, hyperlipidemia, GERD, hypertension and neuropathy. He presents to the emergency department complaining of shortness of breath for the past 2 days associated with nonproductive cough and chills. Chest x-ray shows consolidation in the right lung base and has been started Zithromax and Zosyn. Acute respiratory failure secondary to pneumonia with history of COPD. He is hypoxic requiring BIPAP. I'm concerned with worsening respiratory status will likely be intubated. Obtain chest x-ray and ABG. Continue nebulizations and IV steroids. Will alert pulmonary. Keep monitoring in ICU Sepsis secondary to hospital acquired pneumonia. Lactic acid 1.3. Follow-up blood cultures with gram-positive cocci in 1 out of 4 bottles. Negative urinary Legionella and pneumococcal antigen. Continue IV Zosyn to 4.5 grams every 6 hours, IV vancomycin and Zithromax. Consulted ID He also has a left heel wound being treated for osteomyelitis with IM Rocephin and Diflucan. Culture with strep bovis negative colonoscopy. Continue Diflucan and will hold Rocephin as patient will be on Zosyn. Consult podiatry and radiology receptionist Diabetes mellitus. Uncontrolled Will adjust Levemir insulin depending on glycemic trends. Monitor fingerstick with sliding scale coverage Hypertension. Uncontrolled. Restart home medication with as needed IV Vasotec , hydralazine and clonidine Acute kidney injury. Nonoliguric. Start IV hydration and avoid nephrotoxins. Repeat BMP and magnesium in the morning. Urinalysis with protein DVT prophylaxis with subcutaneous heparin Discharge Planning Critical care time spent 35 minutes Problem Qualifiers (1) Sepsis: Qualified Codes: A41.9 - Sepsis, unspecified organism Yoseph Healy MD Sep 12, 2017 10:11
[2017-09-12 10:32] LABS: BLOOD GAS BASE EXCESS -2.1 mmol/L (-2-2); BLOOD GAS CARBOXYHEMOGLOBIN 1.2 % (0-4); BLOOD GAS HCO3 22 mmol/L (22-26); BLOOD GAS METHEMOGLOBIN 1.2 % (0-2); BLOOD GAS O2 HGB SATURATION 92 % (90-100); BLOOD GAS OXYGEN CONTENT 10.9 Vol % (12.0-20.0); BLOOD GAS PCO2 40 mmHg (38-42); BLOOD GAS PO2 76 mmHg (61-120); BLOOD GAS TOTAL HGB 8.4 G/DL (12.0-16.0); CRITICAL VALUE NO; DRAW SITE LT RADIAL; FIO2 85 %; NUMBER OF ARTERIAL PUNCTURES 1; OXYGEN DEVICE BiPAP; TEMP CORR TO 98.6; VENT SETTINGS IPAP12EPAP5
[2017-09-12 10:33] LABS: STAT YES; ULNAR PULSE PRESENT
--- NOTE | 2017-09-12 11:04 | RADRPT ---
EXAM DATE/TIME: 09/12/2017 10:35 [facility] COMPARISON: CHEST SINGLE AP, September 11, 2017, 9:33. INDICATIONS : Short of breath. MEDICAL HISTORY : Cardiovascular disease. Hypertension Chronic obstructive pulmonary disease. diabetes, skin ca SURGICAL HISTORY : None. ENCOUNTER: Initial ACUITY: 4 - 6 days PAIN SCORE: 0/10 LOCATION: Bilateral chest FINDINGS: There is increasing opacity in the mid and lower lungs bilaterally with loss of delineation of both e ntire hemidiaphragms and portion of both heart borders. Some air bronchograms are seen in the right midlung and in the left retrocardiac region. PICC line catheter tip in the distal superior vena cava . CONCLUSION: Increasing bilateral opacities in the mid and lower lungs characteristic of a combination of pleural effusions and infiltrates. Toni Aleman MD on September 12, 2017 at 11:01 Board Certified Radiologist. This report was verified electronically.
[2017-09-12] MEDS: FLUCONAZOLE 200 MG TAB PO SCH (11:36)
[2017-09-12] MEDS: ASPIRIN 81 MG CHEW TAB PO SCH (11:36)
[2017-09-12] MEDS: GABAPENTIN 300 MG CAP PO SCH ×4 (11:36→19:33)
--- NOTE | 2017-09-12 11:36 | HHI.IDPN ---
Subjective Subjective Remarks Pt is now on BIPAP, remains tachypneic , hypoxic co SOB + cough with some expectoration afebrile BC + 1/4 GPC Antibiotics azithro zosyn vancomycin Allergies: Coded Allergies: *MDRO Multi-Drug Resistant Organism (Verified Adverse Reaction, Unknown, 09/10/17) MRSA (arm wound) - 01/2016 MRSA (blood, urine, wound) - 06/2013 Objective . Vital Signs Date Time Temp Pulse Resp B/P (MAP) Pulse Ox O2 Delivery O2 Flow Rate FiO2 09/12/17 10:00 89 09/12/17 08:00 89 09/12/17 07:57 95 85 09/12/17 07:00 Bi-Pap 85 09/12/17 06:00 96 09/12/17 05:14 92 85 09/12/17 04:40 89 Non-Rebreather 09/12/17 04:00 100 09/12/17 04:00 98.4 100 18 139/67 (91) 95 09/12/17 03:34 92 BiPAP 09/12/17 03:32 92 85 09/12/17 02:00 85 09/12/17 00:00 98.2 98 15 139/76 (97) 94 09/12/17 00:00 98 09/11/17 23:51 95 BiPAP 09/11/17 23:49 95 85 09/11/17 22:00 90 09/11/17 20:49 92 85 09/11/17 20:00 101 09/11/17 20:00 97.9 101 16 136/63 (87) 86 09/11/17 19:00 86 Non-Rebreather 15.00 09/11/17 18:00 100 18 145/83 (103) 91 09/11/17 18:00 100 09/11/17 17:00 101 16 140/79 (99) 96 09/11/17 17:00 101 09/11/17 16:00 98.1 85 17 125/58 (80) 90 09/11/17 16:00 85 09/11/17 15:00 89 09/11/17 15:00 89 16 129/59 (82) 94 09/11/17 14:00 99 09/11/17 14:00 99 19 97 09/11/17 13:00 101 09/11/17 13:00 101 22 158/76 (103) 94 09/11/17 12:00 98.3 98 25 88 09/11/17 12:00 98 . Laboratory Tests Test 09/10/17 14:30 09/11/17 05:20 White Blood Count 20.0 TH/MM3 14.9 TH/MM3 Red Blood Count 3.64 MIL/MM3 3.14 MIL/MM3 Hemoglobin 8.7 GM/DL 7.9 GM/DL Hematocrit 27.8 % 24.3 % Mean Corpuscular Volume 76.4 FL 77.6 FL Mean Corpuscular Hemoglobin 23.9 PG 25.2 PG Mean Corpuscular Hemoglobin Concent 31.3 % 32.5 % Red Cell Distribution Width 20.8 % 21.2 % Platelet Count 583 TH/MM3 447 TH/MM3 Mean Platelet Volume 7.7 FL 7.9 FL Neutrophils (%) (Auto) 77.4 % 91.4 % Lymphocytes (%) (Auto) 15.1 % 5.6 % Monocytes (%) (Auto) 5.4 % 2.1 % Eosinophils (%) (Auto) 1.0 % 0.0 % Basophils (%) (Auto) 1.1 % 0.9 % Neutrophils # (Auto) 15.5 TH/MM3 13.6 TH/MM3 Lymphocytes # (Auto) 3.0 TH/MM3 0.8 TH/MM3 Monocytes # (Auto) 1.1 TH/MM3 0.3 TH/MM3 Eosinophils # (Auto) 0.2 TH/MM3 0.0 TH/MM3 Basophils # (Auto) 0.2 TH/MM3 0.1 TH/MM3 CBC Comment DIFF FINAL DIFF FINAL Differential Comment Laboratory Tests Test 09/10/17 14:30 09/10/17 16:10 09/11/17 05:20 09/12/17 05:21 Blood Urea Nitrogen 21 MG/DL 29 MG/DL Creatinine 0.63 MG/DL 1.18 MG/DL 1.72 MG/DL Random Glucose 149 MG/DL 352 MG/DL Calcium Level 8.3 MG/DL 8.2 MG/DL Magnesium Level 2.1 MG/DL Sodium Level 138 MEQ/L 135 MEQ/L Potassium Level 4.2 MEQ/L 4.7 MEQ/L Chloride Level 103 MEQ/L 102 MEQ/L Carbon Dioxide Level 23.8 MEQ/L 22.9 MEQ/L Anion Gap 11 MEQ/L 10 MEQ/L Estimat Glomerular Filtration Rate 133 ML/MIN 65 ML/MIN 42 ML/MIN B-Type Natriuretic Peptide 244 PG/ML Lactic Acid Level 1.3 mmol/L Microbiology Date/Time Source Procedure Growth Status 09/10/17 15:50 Blood Peripheral Aerobic Blood Culture - Preliminary NO GROWTH IN 2 DAYS Resulted 09/10/17 15:50 Blood Peripheral Anaerobic Blood Culture - Preliminary NO GROWTH IN 2 DAYS Resulted 09/10/17 15:10 Blood Peripheral Aerobic Blood Culture - Preliminary NO GROWTH IN 2 DAYS Resulted 09/10/17 15:10 Anaerobic Blood Culture - Preliminary Gram Positive Cocci Resulted 09/11/17 17:50 Nasal Washing Influenza Types A,B Antigen (ABHISHEK) - Final NEGATIVE FOR FLU A AND B ANTIGEN.... Complete 09/11/17 14:40 Urine Random Urine Legionella Antigen - Final PRESUMPTIVE NEGATIVE FOR LEGIONELLA P... Complete 09/11/17 14:40 Urine Random Urine Streptococcus pneumoniae Antigen (M - Final PRESUMPTIVE NEGATIVE FOR STREPTOCOCCU... Complete Imaging Last Impressions Chest X-Ray 09/12/17 0000 Signed Impressions: Service Date/Time: Tuesday, September 12, 2017 10:35 - CONCLUSION: Increasing bilateral opacities in the mid and lower lungs characteristic of a combination of pleural effusions and infiltrates. Toni Aleman MD Physical Exam CONSTITUTIONAL/GENERAL: This is an adequately nourished patient, in no apparent distress. TUBES/LINES/DRAINS: SKIN: No jaundice, rashes, or lesions. Skin temperature appropriate. Not diaphoretic. HEAD: Atraumatic. Normocephalic. EYES: Pupils equal and round and reactive. Extraocular motions intact. No scleral icterus. No injection or drainage. Fundi not examined. ENT: Partial face BIPAP mask in place NECK: Trachea midline. Supple, nontender. No palpable thyroid enlargement or nodularity. CARDIOVASCULAR: Regular rate and rhythm without murmurs, gallops, or rubs. No JVD. Peripheral pulses symmetric. RESPIRATORY/CHEST: Symmetric, +labored respirations. + accessory muscle use ,Clear to auscultation. Breath sounds equal bilaterally. No wheezes, rales, or rhonchi. GASTROINTESTINAL: Abdomen soft, non-tender, nondistended. No hepato-splenomegaly , or palpable masses. No guarding. Bowel sounds present. GENITOURINARY: Without palpable bladder distension. Beckman catheter in place with clear light yellow urine MUSCULOSKELETAL: Extremities without clubbing, cyanosis, 1+ pittingedema. L foot with dressing in place NEUROLOGICAL: Very lethargic, arouses breifly PSYCHIATRIC:unable to assess Assessment & Plan Remarks DFI, L heel, Strep bovis Crystal tropicalis Osteomyelitis, L calcaneous, Strep bovis Previously reported bacteremia Strep bovis -AUSTEN neg for endocarditis HAP RLL - new - spuutum P - negative leg/pneumoc/flu antigens Hypoxia- worsening , now requires BIPAP New issue - low grade bactermeia, significance unknown at this point - resembles staph STAN - creatinine up to 1.7 today dc zosyn, vavncomycin - start cefepime - start zyvox (ASP: avoiding nephrotoxicity 2/2 acute renal insufficiency ) fu sputum clx fu blood clx untill final cont Renee Rivera MD Sep 12, 2017 11:36
[2017-09-12] MEDS: PANTOPRAZOLE SOD 40 MG DELAYED RELEASE TAB PO SCH (11:37)
[2017-09-12] MEDS: DOCUSATE SODIUM 50 MG/SENNA 8.6 MG TAB PO SCH ×2 (11:37→19:34)
[2017-09-12] MEDS: ATORVASTATIN 40 MG TAB PO SCH (11:37)
[2017-09-12] MEDS: FINASTERIDE 5 MG TAB PO SCH (11:37)
[2017-09-12] MEDS: amLODIPine BESYLATE 5 MG TAB PO SCH ×2 (11:37→19:34)
[2017-09-12] MEDS: MULTIVITAMINS/MINERALS THERAPEUTIC TAB PO SCH (11:38)
[2017-09-12] MEDS: ASCORBIC ACID 500 MG TAB PO SCH (11:38)
[2017-09-12] MEDS: LINEZOLID 600 MG PREMIX 300 ML IV SCH (13:00)
[2017-09-12] MEDS: CEFEPIME INJ 2,000 MG in SODIUM CHLORIDE 0.9% INJ 100 ML IV SCH (14:13)
[2017-09-12] MEDS: AZITHROMYCIN INJ 500 MG in SODIUM CHLOR 0.9% 250 ML INJ 250 ML IV SCH (16:00)
[2017-09-12] MEDS: SODIUM CHLOR 0.9% 1000 ML INJ 1,000 ML IV SCH ×2 (18:00→21:48)
[2017-09-12] MEDS: LORazepam 2 MG/ML VIAL IV PUSH PRN (19:35)
--- NOTE | 2017-09-12 19:52 | HHI.PR ---
Subjective Remarks 52 YOWM with RF,Pneumonia, Sepsis On BIPAP 85 % Fi02 Lethargic mild distress no Fever Objective Vital Signs Vital Signs Date Time Temp Pulse Resp B/P (MAP) Pulse Ox O2 Delivery O2 Flow Rate FiO2 09/12/17 18:00 97 09/12/17 17:04 92 75 09/12/17 16:00 97 09/12/17 16:00 98.4 97 33 166/75 (105) 91 09/12/17 14:00 97 09/12/17 12:00 97 09/12/17 12:00 98.8 100 23 166/84 (111) 90 09/12/17 11:44 96 75 09/12/17 10:00 89 09/12/17 08:00 98.0 96 18 159/87 (111) 95 09/12/17 08:00 89 09/12/17 07:57 95 85 09/12/17 07:00 Bi-Pap 85 09/12/17 06:00 96 09/12/17 05:14 92 85 09/12/17 04:40 89 Non-Rebreather 09/12/17 04:00 100 09/12/17 04:00 98.4 100 18 139/67 (91) 95 09/12/17 03:34 92 BiPAP 09/12/17 03:32 92 85 09/12/17 02:00 85 09/12/17 00:00 98.2 98 15 139/76 (97) 94 09/12/17 00:00 98 09/11/17 23:51 95 BiPAP 09/11/17 23:49 95 85 09/11/17 22:00 90 09/11/17 20:49 92 85 09/11/17 20:00 101 09/11/17 20:00 97.9 101 16 136/63 (87) 86 I/O 09/11/17 09/11/17 09/11/17 09/12/17 09/12/17 09/12/17 07:00 15:00 23:00 07:00 15:00 23:00 Intake Total 480 ml 150 ml 580 ml 660 ml 1136 ml Output Total 800 ml 850 ml 550 ml 700 ml Balance -320 ml 150 ml -270 ml 110 ml 436 ml Intake Oral 480 ml 480 ml 60 ml 120 ml IV Total 150 ml 100 ml 600 ml 1016 ml Output Urine Total 800 ml 850 ml 550 ml 700 ml # Bowel Movements 0 0 0 Result Diagram: 09/11/1751909/12/17520 Objective Remarks GENERAL: MBMN WM on BIPAP SKIN: Warm and dry. HEAD: Normocephalic. EYES: No scleral icterus. No injection or drainage. NECK: Supple, trachea midline. No JVD or lymphadenopathy. CARDIOVASCULAR: Regular rate and rhythm without murmurs, gallops, or rubs. RESPIRATORY: Breath sounds equal bilaterally. No accessory muscle use. GASTROINTESTINAL: Abdomen soft, non-tender, nondistended. MUSCULOSKELETAL: No cyanosis, or edema. BACK: Nontender without obvious deformity. No CVA tenderness. A/P Assessment and Plan Resp Failure COPD Sepsis Pneumonia DM PLAN BIPAP Fi02 85 % If gets worse will need vent support Cont Abx Aerosol nebs IV Steroids Dariel Landry MD Sep 12, 2017 19:52
[2017-09-12] MEDS: MORPHINE SULFATE 4 MG/ML INJ IV PUSH PRN (21:29)
[2017-09-12] MEDS ORDERED: PHARMACY ORDERED LAB ONE (23:45)
[2017-09-13] VITALS (18 sets, daily range): BP systolic 136–162; BP diastolic 63–80; PULSE 86–98; RESP 17–30; TEMP 96.7–98.9; O2SAT 91–99
[2017-09-13] MEDS: LINEZOLID 600 MG PREMIX 300 ML IV SCH (00:39)
[2017-09-13] MEDS: CEFEPIME INJ 2,000 MG in SODIUM CHLORIDE 0.9% INJ 100 ML IV SCH ×2 (00:39→23:50)
[2017-09-13] MEDS: methylPREDNISolone SOD SUCC 40 MG/1 ML VIAL IV PUSH SCH ×4 (00:39→23:50)
[2017-09-13] MEDS: CHLORHEXIDINE GLUCONATE 2 % 1 PACK (2 CLOTHS)(taper/protocol) TOPICAL SCH ×2 (03:48→20:24)
[2017-09-13 03:59] LABS: AUTOMATED NEUTROPHIL # 18.5 TH/MM3 (1.8-7.7); BASOPHIL % 0.1 % (0.0-2.0); HEMATOCRIT 26.8 % (39.0-51.0); HEMO FLAGS DIFF FINAL; LYMPH % 5.3 % (9.0-44.0); LYMPHOCYTE # 1.1 TH/MM3 (1.0-4.8); MEAN CELL VOLUME 77.6 FL (80.0-100.0); MEAN CORPUSCULAR HEMOGLOBIN 24.1 PG (27.0-34.0); MONO % 3.3 % (0.0-8.0); NEUT % 91.3 % (16.0-70.0); PLATELET COUNT 539 TH/MM3 (150-450); RED BLOOD COUNT 3.45 MIL/MM3 (4.50-5.90); RED CELL DISTRIBUTION WIDTH 20.9 % (11.6-17.2); WHITE BLOOD COUNT 20.3 TH/MM3 (4.0-11.0)
[2017-09-13 04:02] LABS: BICARBONATE 24.6 MEQ/L (21.0-32.0); MAGNESIUM 2.7 MG/DL (1.5-2.5); POTASSIUM 4.4 MEQ/L (3.5-5.1)
[2017-09-13] MEDS: HEPARIN SODIUM - SQ 10,000 UNITS/ML VIAL SQ SCH ×2 (05:31→20:48)
[2017-09-13] MEDS: hydrALAZINE HCL 25 MG TAB PO SCH ×2 (05:31→20:47)
[2017-09-13] MEDS: INSULIN ASPART SUPPLEMENTAL SCALE SQ SCH ×2 (08:00→20:27)
[2017-09-13] MEDS: RESP: ALBUTEROL 2.5 MG/IPRATROPIUM 0.5 MG NEB (SCH) NEB ×4 (08:09→20:01)
[2017-09-13] MEDS: SODIUM CHLORIDE 0.9% FLUSH 10 ML FLUSH IV FLUSH SCH ×2 (08:41→20:37)
[2017-09-13] MEDS: FINASTERIDE 5 MG TAB PO SCH (08:41)
[2017-09-13] MEDS: ACETAMINOPHEN/HYDROcodone 325 MG/10 MG TAB PO PRN ×3 (08:41→21:32)
[2017-09-13] MEDS: ATORVASTATIN 40 MG TAB PO SCH (08:41)
[2017-09-13] MEDS: amLODIPine BESYLATE 5 MG TAB PO SCH ×2 (08:42→20:48)
[2017-09-13] MEDS: ASPIRIN 81 MG CHEW TAB PO SCH (08:42)
[2017-09-13] MEDS: DOCUSATE SODIUM 50 MG/SENNA 8.6 MG TAB PO SCH ×2 (08:42→20:48)
[2017-09-13] MEDS: ASCORBIC ACID 500 MG TAB PO SCH (08:42)
[2017-09-13] MEDS: MULTIVITAMINS/MINERALS THERAPEUTIC TAB PO SCH (09:00)
[2017-09-13] MEDS: INSULIN DETEMIR 100 UNITS/ML VIAL SQ SCH ×2 (09:00→20:37)
[2017-09-13] MEDS: GABAPENTIN 300 MG CAP PO SCH ×3 (09:00→20:48)
[2017-09-13] MEDS: PANTOPRAZOLE SOD 40 MG DELAYED RELEASE TAB PO SCH (09:00)
[2017-09-13] MEDS: FLUCONAZOLE 200 MG TAB PO SCH (09:00)
[2017-09-13] MEDS ORDERED: CALCIUM CARBONATE 500 MG CHEWABLE TAB CHEW PRN (10:30)
--- NOTE | 2017-09-13 10:35 | HHI.PR ---
Subjective Remarks Follow-up pneumonia and respiratory failure. Still on BiPAP 90% FiO2. According to RN, when she tried to give by mouth meds saturation dropped to 70% . Complains of shortness of breath and heartburn. Agrees with the NGT insertion into feeding Objective Vitals Vital Signs Date Time Temp Pulse Resp B/P (MAP) Pulse Ox O2 Delivery O2 Flow Rate FiO2 09/13/17 08:10 96 85 09/13/17 07:00 94 Bi-Pap 8.00 90 09/13/17 06:00 92 09/13/17 04:00 98.4 90 17 146/80 (102) 99 09/13/17 04:00 90 09/13/17 03:56 98 90 09/13/17 02:00 86 09/13/17 00:11 92 BiPAP 09/13/17 00:00 98.1 96 18 136/63 (87) 96 09/13/17 00:00 88 09/12/17 23:52 92 85 09/12/17 22:00 93 09/12/17 21:34 20 09/12/17 20:59 94 85 09/12/17 20:59 92 BiPAP 09/12/17 20:00 97.9 97 20 151/73 (99) 91 09/12/17 20:00 97 09/12/17 19:00 91 Bi-Pap 09/12/17 18:00 97 09/12/17 17:04 92 75 09/12/17 16:00 97 09/12/17 16:00 98.4 97 33 166/75 (105) 91 09/12/17 14:00 97 09/12/17 12:00 97 09/12/17 12:00 98.8 100 23 166/84 (111) 90 09/12/17 11:44 96 75 I/O 09/12/17 09/12/17 09/12/17 09/13/17 09/13/17 09/13/17 07:00 15:00 23:00 07:00 15:00 23:00 Intake Total 660 ml 1136 ml 460 ml Output Total 550 ml 700 ml 650 ml Balance 110 ml 436 ml -190 ml Intake Oral 60 ml 120 ml 60 ml IV Total 600 ml 1016 ml 400 ml Output Urine Total 550 ml 700 ml 650 ml # Bowel Movements 0 0 Result Diagram: 09/13/17 0310 09/13/17 0310 Imaging Last Impressions Chest X-Ray 09/12/17 0000 Signed Impressions: Service Date/Time: Tuesday, September 12, 2017 10:35 - CONCLUSION: Increasing bilateral opacities in the mid and lower lungs characteristic of a combination of pleural effusions and infiltrates. Toni Aleman MD Objective Remarks GENERAL: This is a well-nourished, well-developed critically ill patient, on BiPAP SKIN: No rashes, ecchymoses or lesions. Cool and diaphoretic CARDIOVASCULAR: Regular rate and rhythm without murmurs, gallops, or rubs. RESPIRATORY: Decreased Breath sounds worse on the right lung base GASTROINTESTINAL: Abdomen soft, non-tender, nondistended. No guarding. MUSCULOSKELETAL: Extremities without clubbing, cyanosis, but with bilateral lower extremity pitting edema. Left heel with wound vac NEUROLOGICAL: Alert and oriented Cranial nerves II through XII intact. Motor and sensory grossly within normal limits. Five out of 5 muscle strength in all muscle groups. Normal speech. Procedures none Assessment to: Remove A/P Problem List: (1) Sepsis ICD Code: A41.9 - Sepsis, unspecified organism Status: Acute (2) Hospital-acquired pneumonia ICD Code: J18.9 - Pneumonia, unspecified organism Status: Acute Assessment and Plan This is a 52-year-old male with a history of COPD, diabetes mellitus, chronic pain, arthritis, CVA, hyperlipidemia, GERD, hypertension and neuropathy. He presents to the emergency department complaining of shortness of breath for the past 2 days associated with nonproductive cough and chills. Chest x-ray shows consolidation in the right lung base and has been started Zithromax and Zosyn. Acute respiratory failure secondary to pneumonia with history of COPD. He remains hypoxic requiring BIPAP FiO2 90%. I'm concerned with respiratory status will likely be intubated. Continue nebulizations and IV steroids. Keep monitoring in ICU Sepsis secondary to hospital acquired pneumonia. Lactic acid 1.3. Follow-up blood cultures with staph epi in 1 out of 4 bottles. Negative urinary Legionella and pneumococcal antigen. Still meets criteria for sepsis with worsening leukocytosis. Antimicrobial was switched to IV Zosyn, cefepime by ID. Continue IV Zithromax He also has a left heel wound being treated for osteomyelitis with IM Rocephin and Diflucan. Culture with strep bovis negative colonoscopy. Continue Diflucan and will hold Rocephin as patient will be on Zosyn. Consulted podiatry and african studies professor for wound VAC. Diabetes mellitus. Uncontrolled on steroids. Will adjust Levemir insulin depending on glycemic trends. Monitor fingerstick with sliding scale coverage. Euglycemic yesterday patient did not receive Levemir because of poor by mouth tolerance Hypertension. Improving. Restart home medication with as needed IV Vasotec, hydralazine and clonidine Acute kidney injury. Nonoliguric. Improving continue IV hydration and avoid nephrotoxins. Repeat BMP and magnesium in the morning. Urinalysis with protein. Consider David FEN. IVF and TF Discontinue Beckman catheter per protocol DVT prophylaxis with subcutaneous heparin Discharge Planning Critical care time spent 35 minutes Problem Qualifiers (1) Sepsis: Qualified Codes: A41.9 - Sepsis, unspecified organism Yoseph Healy MD Sep 13, 2017 10:35
[2017-09-13 15:10] LABS: BLOOD GAS BASE EXCESS -2.5 mmol/L (-2-2); BLOOD GAS CARBOXYHEMOGLOBIN 1.2 % (0-4); BLOOD GAS HCO3 22 mmol/L (22-26); BLOOD GAS METHEMOGLOBIN 1.1 % (0-2); BLOOD GAS O2 HGB SATURATION 90 % (90-100); BLOOD GAS OXYGEN CONTENT 11.2 Vol % (12.0-20.0); BLOOD GAS PCO2 35 mmHg (38-42); BLOOD GAS PO2 70 mmHg (61-120); BLOOD GAS TOTAL HGB 8.8 G/DL (12.0-16.0); CRITICAL VALUE NO; OXYGEN DEVICE BiPAP; TEMP CORR TO 98.6
[2017-09-13 15:11] LABS: DRAW SITE RT RADIAL; FIO2 80 %; NUMBER OF ARTERIAL PUNCTURES 1; STAT YES; ULNAR PULSE PRESENT; VENT SETTINGS IPAP15/EPAP8
--- NOTE | 2017-09-13 15:24 | HHI.IDPN ---
Subjective Subjective Remarks remains on BIPAP, remains tachypneic , hypoxic worsening effusions, infiltrates bl on CXR b/s ultrasound b/l large side effsuins Emergent R side thoracocenthesis is planned afebrile WBC up to 20 K Antibiotics azithro cefepime linezolid Allergies: Coded Allergies: *MDRO Multi-Drug Resistant Organism (Verified Adverse Reaction, Unknown, 09/10/17) MRSA (arm wound) - 01/2016 MRSA (blood, urine, wound) - 06/2013 Objective . Vital Signs Date Time Temp Pulse Resp B/P (MAP) Pulse Ox O2 Delivery O2 Flow Rate FiO2 09/13/17 12:40 93 80 09/13/17 08:10 96 85 09/13/17 07:00 94 Bi-Pap 8.00 90 09/13/17 06:00 92 09/13/17 04:00 98.4 90 17 146/80 (102) 99 09/13/17 04:00 90 09/13/17 03:56 98 90 09/13/17 02:00 86 09/13/17 00:11 92 BiPAP 09/13/17 00:00 98.1 96 18 136/63 (87) 96 09/13/17 00:00 88 09/12/17 23:52 92 85 09/12/17 22:00 93 09/12/17 21:34 20 09/12/17 20:59 94 85 09/12/17 20:59 92 BiPAP 09/12/17 20:00 97.9 97 20 151/73 (99) 91 09/12/17 20:00 97 09/12/17 19:00 91 Bi-Pap 09/12/17 18:00 97 09/12/17 17:04 92 75 09/12/17 16:00 97 09/12/17 16:00 98.4 97 33 166/75 (105) 91 . Laboratory Tests Test 09/13/17 03:10 White Blood Count 20.3 TH/MM3 Red Blood Count 3.45 MIL/MM3 Hemoglobin 8.3 GM/DL Hematocrit 26.8 % Mean Corpuscular Volume 77.6 FL Mean Corpuscular Hemoglobin 24.1 PG Mean Corpuscular Hemoglobin Concent 31.0 % Red Cell Distribution Width 20.9 % Platelet Count 539 TH/MM3 Mean Platelet Volume 7.8 FL Neutrophils (%) (Auto) 91.3 % Lymphocytes (%) (Auto) 5.3 % Monocytes (%) (Auto) 3.3 % Eosinophils (%) (Auto) 0.0 % Basophils (%) (Auto) 0.1 % Neutrophils # (Auto) 18.5 TH/MM3 Lymphocytes # (Auto) 1.1 TH/MM3 Monocytes # (Auto) 0.7 TH/MM3 Eosinophils # (Auto) 0.0 TH/MM3 Basophils # (Auto) 0.0 TH/MM3 CBC Comment DIFF FINAL Differential Comment Laboratory Tests Test 09/12/17 05:21 09/13/17 03:10 Creatinine 1.72 MG/DL 1.51 MG/DL Estimat Glomerular Filtration Rate 42 ML/MIN 49 ML/MIN Blood Urea Nitrogen 50 MG/DL Random Glucose 143 MG/DL Calcium Level 8.1 MG/DL Magnesium Level 2.7 MG/DL Sodium Level 139 MEQ/L Potassium Level 4.4 MEQ/L Chloride Level 106 MEQ/L Carbon Dioxide Level 24.6 MEQ/L Anion Gap 8 MEQ/L Microbiology Date/Time Source Procedure Growth Status 09/10/17 15:50 Blood Peripheral Aerobic Blood Culture - Preliminary NO GROWTH IN 3 DAYS Resulted 09/10/17 15:50 Blood Peripheral Anaerobic Blood Culture - Preliminary NO GROWTH IN 3 DAYS Resulted 09/11/17 17:50 Nasal Washing Influenza Types A,B Antigen (ABHISHEK) - Final NEGATIVE FOR FLU A AND B ANTIGEN.... Complete 09/11/17 14:40 Urine Random Urine Legionella Antigen - Final PRESUMPTIVE NEGATIVE FOR LEGIONELLA P... Complete 09/11/17 14:40 Urine Random Urine Streptococcus pneumoniae Antigen (M - Final PRESUMPTIVE NEGATIVE FOR STREPTOCOCCU... Complete Imaging Last Impressions Chest X-Ray 09/12/17 0000 Signed Impressions: Service Date/Time: Tuesday, September 12, 2017 10:35 - CONCLUSION: Increasing bilateral opacities in the mid and lower lungs characteristic of a combination of pleural effusions and infiltrates. Toni Aleman MD Physical Exam CONSTITUTIONAL/GENERAL: This is an adequately nourished patient, in moderate resp distress. TUBES/LINES/DRAINS: SKIN: No jaundice, rashes, or lesions. Skin temperature appropriate. Not diaphoretic. HEAD: Atraumatic. Normocephalic. EYES: Pupils equal and round and reactive. Extraocular motions intact. No scleral icterus. No injection or drainage. Fundi not examined. ENT: Partial face BIPAP mask in place NECK: Trachea midline. Supple, nontender. No palpable thyroid enlargement or nodularity. CARDIOVASCULAR: Regular rate and rhythm without murmurs, gallops, or rubs. No JVD. Peripheral pulses symmetric. RESPIRATORY/CHEST: Symmetric, +labored respirations. + accessory muscle use ,Clear to auscultation. Breath sounds diminished at bases bilaterally. No wheezes, rales, or rhonchi. GASTROINTESTINAL: Abdomen soft, non-tender, moderately distended. No hepato- splenomegaly, or palpable masses. No guarding. Bowel sounds present. GENITOURINARY: Without palpable bladder distension. Beckman catheter in place with clear light yellow urine MUSCULOSKELETAL: Extremities without clubbing, cyanosis, 2+ pittingedema. L foot with dressing in place NEUROLOGICAL: mildly lethargic, arouses easily, converses approprietely PSYCHIATRIC: appropriate anxiaty to the clinical settings Assessment & Plan Remarks DFI, L heel, Strep bovis Crystal tropicalis Osteomyelitis, L calcaneous, Strep bovis Previously reported bacteremia Strep bovis -AUSTEN neg for endocarditis HAP RLL - new - spuutum P - negative leg/pneumoc/flu antigens Hypoxia- worsening , now requires BIPAP Low grade coag neg staph bactermeia, doubt clin significance - resembles staph STAN - creatinine slightly better today cont cefepime cont zyvox (ASP: avoiding nephrotoxicity 2/2 acute renal insufficiency ) obtaine sputum clx if feasible fu blood clx untill final cont neo kamara with plan for thoracocenthesis will chk fluid clx Renee Garcia MD Sep 13, 2017 15:24
--- NOTE | 2017-09-13 15:33 | RADRPT ---
EXAM DATE/TIME: 09/13/2017 14:46 [facility] COMPARISON: CHEST SINGLE AP, September 12, 2017, 10:35. INDICATIONS : Evaluate for respiratory disease. MEDICAL HISTORY : Cardiovascular disease. Hypertension. Chronic obstructive pulmonary disease. Diabetes. SURGICAL HISTORY : None. ENCOUNTER: Subsequent ACUITY: 2 weeks PAIN SCORE: Non-responsive. LOCATION: Bilateral chest FINDINGS: There is slight interval increased aeration of the lungs compared to the previous examination. Mild central pulmonary vascular congestion is noted. Small bilateral pleural effusions are noted. Right-s ided PICC line has its tip in the superior vena cava. CONCLUSION: 1. Increased aeration of the lungs compared to the previous examination with mild residual pulmonary vascular congestion noted. 2. Small bilateral pleural effusions. Ramon Clark MD on September 13, 2017 at 15:26 Board Certified Radiologist. This report was verified electronically.
--- NOTE | 2017-09-13 15:57 | PD.PROCEDR ---
Procedure Note Procedure Procedure Right thoracentesis Indication hypoxemic respiratory failure, large right pleural effusion Procedure Informed consent was obtained and time out performed. Patient was placed in optimal position. Right posterior lower chest was marked with ultrasound. Full barrier and sterile precautions were used, skin sterilized with chlorhexidine x3; skin and subcutaneous tissue at the marked site was infiltrated with 1% lidocaine. A small skin lexie was made with scalpel. Thoracentesis Angiocath was introduced into the pleural space and free-flowing straw-colored pleural fluid was obtained. The needle was removed and Angiocath was connected to the Vacutainer and a total of 1800 mL of free-flowing straw colored pleural fluid was removed. Chest x-ray postprocedure pending at this time. Fluid sent for multiple studies. Patient tolerated procedure well Lashae Felton MD Sep 13, 2017 15:57
[2017-09-13] MEDS: AZITHROMYCIN INJ 500 MG in SODIUM CHLOR 0.9% 250 ML INJ 250 ML IV SCH (16:00)
[2017-09-13] MEDS ORDERED: BUMETANIDE INJ 1 MG/4 ML VIAL IV PUSH ONE (16:15)
[2017-09-13] MEDS ORDERED: ALBUMIN 25% INJ 50 ML IV ONE (16:15)
--- NOTE | 2017-09-13 16:32 | RADRPT ---
EXAM DATE/TIME: 09/13/2017 16:19 [facility] COMPARISON: CHEST SINGLE AP, September 13, 2017, 14:46. INDICATIONS : Post right thoracentsis. MEDICAL HISTORY : Cardiovascular disease. Hypertension. Chronic obstructive pulmonary disease.Diabetes. Skin cancer. SURGICAL HISTORY : None. ENCOUNTER: Subsequent ACUITY: 1 day PAIN SCORE: 2/10 LOCATION: Right chest FINDINGS: There is no pneumothorax following right thoracentesis. Moderate interstitial edema and bilateral pl eural effusions persist larger on the left than the right. PICC line in good position. CONCLUSION: Negative for pneumothorax. Persistent effusions larger on the left than the right. Piyush Barrera MD FACR on September 13, 2017 at 16:30 Board Certified Radiologist. This report was verified electronically.
[2017-09-13 16:35] LABS: TOTAL PROTEIN,PLEURAL FLUID 1.4 GM/DL
[2017-09-13] MEDS: LORazepam 2 MG/ML VIAL IV PUSH PRN (17:39)
[2017-09-13] MEDS: MORPHINE SULFATE 4 MG/ML INJ IV PUSH PRN ×2 (17:39→23:58)
[2017-09-13 17:56] LABS: PLEURAL FLUID LYMPHS 27 %
--- NOTE | 2017-09-13 20:10 | HHI.PR ---
Subjective Remarks 52 YOWM with RF,Pneumonia, Sepsis mild distress no Fever Had Rt TC by 1800 cc fluid removed On PRB Objective Vital Signs Vital Signs Date Time Temp Pulse Resp B/P (MAP) Pulse Ox O2 Delivery O2 Flow Rate FiO2 09/13/17 18:00 95 09/13/17 16:07 95 Partial Rebreather 13.00 09/13/17 16:00 98.9 96 20 143/65 (91) 93 09/13/17 16:00 97 09/13/17 14:00 96 09/13/17 12:40 93 80 09/13/17 12:00 93 09/13/17 12:00 97.2 97 21 158/73 (101) 91 09/13/17 12:00 96.7 96 30 162/77 (105) 96 09/13/17 10:00 97 09/13/17 08:10 96 85 09/13/17 08:00 96.7 96 30 162/77 (105) 96 09/13/17 08:00 96 09/13/17 07:00 94 Bi-Pap 8.00 90 09/13/17 06:00 92 09/13/17 04:00 98.4 90 17 146/80 (102) 99 09/13/17 04:00 90 09/13/17 03:56 98 90 09/13/17 02:00 86 09/13/17 00:11 92 BiPAP 09/13/17 00:00 98.1 96 18 136/63 (87) 96 09/13/17 00:00 88 09/12/17 23:52 92 85 09/12/17 22:00 93 09/12/17 21:34 20 09/12/17 20:59 94 85 09/12/17 20:59 92 BiPAP I/O 09/12/17 09/12/17 09/12/17 09/13/17 09/13/17 09/13/17 07:00 15:00 23:00 07:00 15:00 23:00 Intake Total 660 ml 1136 ml 460 ml Output Total 550 ml 700 ml 650 ml Balance 110 ml 436 ml -190 ml Intake Oral 60 ml 120 ml 60 ml IV Total 600 ml 1016 ml 400 ml Output Urine Total 550 ml 700 ml 650 ml # Bowel Movements 0 0 Result Diagram: 09/13/1730909/13/17309 Objective Remarks GENERAL: MBMN WM on BIPAP SKIN: Warm and dry. HEAD: Normocephalic. EYES: No scleral icterus. No injection or drainage. NECK: Supple, trachea midline. No JVD or lymphadenopathy. CARDIOVASCULAR: Regular rate and rhythm without murmurs, gallops, or rubs. RESPIRATORY: Breath sounds equal bilaterally. No accessory muscle use. GASTROINTESTINAL: Abdomen soft, non-tender, nondistended. MUSCULOSKELETAL: No cyanosis, or edema. BACK: Nontender without obvious deformity. No CVA tenderness. A/P Assessment and Plan Resp Failure COPD Sepsis Pneumonia DM PLAN BIPAP at night and prn If gets worse will need vent support Cont Abx Aerosol nebs IV Steroids Check pl fluid results Dariel Landry MD Sep 13, 2017 20:10
[2017-09-13] MEDS: SODIUM CHLOR 0.9% 1000 ML INJ 1,000 ML IV SCH (20:24)
[2017-09-13] MEDS: MUPIROCIN 2% OINT 1 APPLIC/GM SYR EACH NARE SCH (20:47)
[2017-09-14] VITALS (17 sets, daily range): BP systolic 130–151; BP diastolic 65–71; PULSE 83–97; RESP 17–29; TEMP 97.3–98.5; O2SAT 89–99
[2017-09-14] MEDS: LINEZOLID 600 MG PREMIX 300 ML IV SCH ×3 (00:55→23:25)
[2017-09-14] MEDS: ACETAMINOPHEN/HYDROcodone 325 MG/10 MG TAB PO PRN ×3 (02:38→20:12)
[2017-09-14] MEDS: RESP: ALBUTEROL 2.5 MG/3 ML NEB (PRN) NEB (03:16)
[2017-09-14] MEDS: MORPHINE SULFATE 4 MG/ML INJ IV PUSH PRN ×4 (03:58→20:12)
[2017-09-14] MEDS: methylPREDNISolone SOD SUCC 40 MG/1 ML VIAL IV PUSH SCH ×4 (05:47→23:25)
[2017-09-14] MEDS: HEPARIN SODIUM - SQ 10,000 UNITS/ML VIAL SQ SCH ×3 (05:50→20:11)
[2017-09-14] MEDS: hydrALAZINE HCL 25 MG TAB PO SCH ×3 (05:50→20:11)
[2017-09-14 06:02] LABS: AUTOMATED NEUTROPHIL # 18.1 TH/MM3 (1.8-7.7); BASOPHIL % 0.1 % (0.0-2.0); HEMATOCRIT 27.1 % (39.0-51.0); HEMO FLAGS DIFF FINAL; LYMPH % 5.8 % (9.0-44.0); LYMPHOCYTE # 1.2 TH/MM3 (1.0-4.8); MEAN CELL VOLUME 77.2 FL (80.0-100.0); MEAN CORPUSCULAR HEMOGLOBIN 24.2 PG (27.0-34.0); MEAN CORPUSCULAR HGB CONC 31.3 % (32.0-36.0); MONO % 4.6 % (0.0-8.0); NEUT % 89.5 % (16.0-70.0); PLATELET COUNT 572 TH/MM3 (150-450); RED CELL DISTRIBUTION WIDTH 21.4 % (11.6-17.2); WHITE BLOOD COUNT 20.2 TH/MM3 (4.0-11.0)
[2017-09-14 06:36] LABS: BICARBONATE 22.3 MEQ/L (21.0-32.0); MAGNESIUM 2.7 MG/DL (1.5-2.5); POTASSIUM 4.8 MEQ/L (3.5-5.1)
--- NOTE | 2017-09-14 06:47 | RADRPT ---
EXAM DATE/TIME: 09/14/2017 06:25 [facility] COMPARISON: CHEST SINGLE AP, September 13, 2017, 16:19. INDICATIONS : Respiratory distress. MEDICAL HISTORY : Cardiovascular disease. Hypertension. Chronic obstructive pulmonary disease.Diabetes. Skin cancer. SURGICAL HISTORY : None. ENCOUNTER: Subsequent ACUITY: 2 weeks PAIN SCORE: Non-responsive. LOCATION: Bilateral chest FINDINGS: Right arm PICC line is stable in position. Symmetric bilateral lower lung zone pleuroparenchymal opac ities are grossly unchanged. Cardiac contours are largely obscured. CONCLUSION: No significant change Jose Francisco Colon MD on September 14, 2017 at 6:45 Board Certified Radiologist. This report was verified electronically.
[2017-09-14] MEDS: RESP: ALBUTEROL 2.5 MG/IPRATROPIUM 0.5 MG NEB (SCH) NEB ×3 (07:41→20:03)
[2017-09-14] MEDS: INSULIN ASPART SUPPLEMENTAL SCALE SQ SCH ×2 (08:00→12:00)
[2017-09-14] MEDS: ATORVASTATIN 40 MG TAB PO SCH (08:41)
[2017-09-14] MEDS: amLODIPine BESYLATE 5 MG TAB PO SCH ×2 (08:41→20:10)
[2017-09-14] MEDS: DOCUSATE SODIUM 50 MG/SENNA 8.6 MG TAB PO SCH ×2 (08:41→20:11)
[2017-09-14] MEDS: PANTOPRAZOLE SOD 40 MG DELAYED RELEASE TAB PO SCH (08:41)
[2017-09-14] MEDS: MULTIVITAMINS/MINERALS THERAPEUTIC TAB PO SCH (08:41)
[2017-09-14] MEDS: FINASTERIDE 5 MG TAB PO SCH (08:42)
[2017-09-14] MEDS: ASCORBIC ACID 500 MG TAB PO SCH (08:42)
[2017-09-14] MEDS: FLUCONAZOLE 200 MG TAB PO SCH (08:42)
[2017-09-14] MEDS: ASPIRIN 81 MG CHEW TAB PO SCH (08:42)
[2017-09-14] MEDS: GABAPENTIN 300 MG CAP PO SCH ×4 (08:42→20:10)
[2017-09-14] MEDS: INSULIN DETEMIR 100 UNITS/ML VIAL SQ SCH ×2 (08:43→20:10)
[2017-09-14] MEDS: SODIUM CHLORIDE 0.9% FLUSH 10 ML FLUSH IV FLUSH SCH ×2 (08:43→20:11)
[2017-09-14] MEDS: MUPIROCIN 2% OINT 1 APPLIC/GM SYR EACH NARE SCH ×2 (08:43→20:11)
--- NOTE | 2017-09-14 12:21 | PD.PROCEDR ---
Procedure Note Procedure Right pigtail chest tube placement Indication hypoxemic respiratory failure, large right pleural effusion Procedure Informed consent was obtained and time out performed. Patient was placed in optimal position. Right posterior lower chest was marked with ultrasound. Full barrier and sterile precautions were used, skin and subcutaneous tissue at the marked site was infiltrated with 1% lidocaine. A small skin lexie was made with scalpel. Introducer needle was placed into the pleural space and straw colored pleural fluid was obtained. The guidewire was inserted through the needle and the needle was removed. Track was dilated and a 8 Zimbabwean pigtail catheter was introduced into the pleural space using Seldinger technique. Wire was removed and pigtail catheter was passed to the pleural vac and placed on -20 wall suction. Output 1500 mL of free-flowing straw colored pleural fluid was removed. Chest x-ray postprocedure pending at this time. Patient tolerated procedure well Lashae Felton MD Sep 14, 2017 12:21
--- NOTE | 2017-09-14 13:06 | PD.PROCEDR ---
Procedure Note Procedure Left pigtail chest tube placement Indication hypoxemic respiratory failure, large left pleural effusion Procedure Informed consent was obtained and time out performed. Patient was placed in optimal position. Left lateral lower chest was marked with ultrasound. Full barrier and sterile precautions were used, skin and subcutaneous tissue at the marked site was infiltrated with 1% lidocaine. A small skin lexie was made with scalpel. Introducer needle was placed into the pleural space and straw colored pleural fluid was obtained. The guidewire was inserted through the needle and the needle was removed. Track was dilated and a 8 Grenadian pigtail catheter was introduced into the pleural space using Seldinger technique. Wire was removed and pigtail catheter was passed to the pleural vac and placed on -20 wall suction. Output 500 mL of free-flowing straw colored pleural fluid was removed. Chest x-ray postprocedure pending at this time. Patient tolerated procedure well Lashae Felton MD Sep 14, 2017 13:06
[2017-09-14] MEDS: CEFEPIME INJ 2,000 MG in SODIUM CHLORIDE 0.9% INJ 100 ML IV SCH ×2 (13:49→23:25)
[2017-09-14] MEDS: ALBUMIN 25% INJ 100 ML IV SCH ×2 (13:52→20:20)
--- NOTE | 2017-09-14 14:02 | RADRPT ---
EXAM DATE/TIME: 09/14/2017 13:27 [facility] COMPARISON: CHEST SINGLE AP, September 14, 2017, 6:25. INDICATIONS : Chest tube placement MEDICAL HISTORY : Cardiovascular disease. Hypertension Chronic obstructive pulmonary disease. diabetes SURGICAL HISTORY : None. ENCOUNTER: Initial ACUITY: 4 - 6 days PAIN SCORE: Non-responsive. LOCATION: Bilateral chest FINDINGS: There are small bilateral chest tubes in place along both lower lung pham. No definite pneumothorax . There are scattered pulmonary infiltrates throughout both lungs, right greater than left. The heart size is stable. There is a right-sided PICC line in place. CONCLUSION: 2 small bilateral chest tubes are in place. No definite pneumothorax. Scattered bilateral pulmonary i nfiltrates right greater than left. Simba Hastings MD on September 14, 2017 at 13:59 Board Certified Radiologist. This report was verified electronically.
[2017-09-14] MEDS ORDERED: BUMETANIDE INJ 1 MG/4 ML VIAL IV PUSH ONE (14:15)
--- NOTE | 2017-09-14 15:55 | HHI.IDPN ---
Subjective Subjective Remarks Breathing better after b/l CT placement On 50%VM afebrile fluid cw transudate Antibiotics azithro cefepime linezolid Allergies: Coded Allergies: *MDRO Multi-Drug Resistant Organism (Verified Adverse Reaction, Unknown, 09/10/17) MRSA (arm wound) - 01/2016 MRSA (blood, urine, wound) - 06/2013 Objective . Vital Signs Date Time Temp Pulse Resp B/P (MAP) Pulse Ox O2 Delivery O2 Flow Rate FiO2 09/14/17 14:00 91 09/14/17 13:15 95 Venturi Mask 50 09/14/17 12:00 91 09/14/17 10:00 91 09/14/17 08:00 98.5 87 29 140/71 (94) 98 09/14/17 08:00 91 09/14/17 07:46 94 Partial Rebreather 09/14/17 07:46 16 09/14/17 07:00 Bi-Pap 6.00 80 09/14/17 06:00 91 09/14/17 04:12 95 80 09/14/17 04:00 83 09/14/17 04:00 98.0 83 23 135/71 (92) 95 09/14/17 02:00 90 09/14/17 01:00 89 80 09/14/17 00:00 98.0 91 28 132/67 (88) 92 09/14/17 00:00 91 09/13/17 22:00 95 09/13/17 20:00 98 09/13/17 20:00 98.3 98 19 136/65 (88) 94 09/13/17 19:46 94 65 09/13/17 19:00 94 Bi-Pap 8.00 85 09/13/17 18:00 95 09/13/17 16:07 95 Partial Rebreather 13.00 09/13/17 16:00 98.9 96 20 143/65 (91) 93 09/13/17 16:00 97 . Laboratory Tests Test 09/13/17 03:10 09/14/17 05:15 White Blood Count 20.3 TH/MM3 20.2 TH/MM3 Red Blood Count 3.45 MIL/MM3 3.50 MIL/MM3 Hemoglobin 8.3 GM/DL 8.5 GM/DL Hematocrit 26.8 % 27.1 % Mean Corpuscular Volume 77.6 FL 77.2 FL Mean Corpuscular Hemoglobin 24.1 PG 24.2 PG Mean Corpuscular Hemoglobin Concent 31.0 % 31.3 % Red Cell Distribution Width 20.9 % 21.4 % Platelet Count 539 TH/MM3 572 TH/MM3 Mean Platelet Volume 7.8 FL 8.0 FL Neutrophils (%) (Auto) 91.3 % 89.5 % Lymphocytes (%) (Auto) 5.3 % 5.8 % Monocytes (%) (Auto) 3.3 % 4.6 % Eosinophils (%) (Auto) 0.0 % 0.0 % Basophils (%) (Auto) 0.1 % 0.1 % Neutrophils # (Auto) 18.5 TH/MM3 18.1 TH/MM3 Lymphocytes # (Auto) 1.1 TH/MM3 1.2 TH/MM3 Monocytes # (Auto) 0.7 TH/MM3 0.9 TH/MM3 Eosinophils # (Auto) 0.0 TH/MM3 0.0 TH/MM3 Basophils # (Auto) 0.0 TH/MM3 0.0 TH/MM3 CBC Comment DIFF FINAL DIFF FINAL Differential Comment Laboratory Tests Test 09/13/17 03:10 09/14/17 05:15 Blood Urea Nitrogen 50 MG/DL 54 MG/DL Creatinine 1.51 MG/DL 1.32 MG/DL Random Glucose 143 MG/DL 252 MG/DL Calcium Level 8.1 MG/DL 7.9 MG/DL Magnesium Level 2.7 MG/DL 2.7 MG/DL Sodium Level 139 MEQ/L 139 MEQ/L Potassium Level 4.4 MEQ/L 4.8 MEQ/L Chloride Level 106 MEQ/L 104 MEQ/L Carbon Dioxide Level 24.6 MEQ/L 22.3 MEQ/L Anion Gap 8 MEQ/L 13 MEQ/L Estimat Glomerular Filtration Rate 49 ML/MIN 57 ML/MIN Microbiology Date/Time Source Procedure Growth Status 09/13/17 13:46 Fluid Pleural Fluid Fungal Smear - Final NO FUNGAL ELEMENTS SEEN. Resulted 09/13/17 13:46 Fluid Pleural Fluid Fungal Culture Pending Resulted 09/13/17 13:46 Fluid Pleural Fluid Acid Fast Stain Pending Received 09/13/17 13:46 Fluid Pleural Fluid Mycobacterial Culture Pending Received 09/13/17 13:46 Fluid Pleural Fluid Gram Stain - Final Resulted 09/13/17 13:46 Fluid Pleural Fluid Body Fluid Culture Pending Resulted 09/11/17 17:50 Nasal Washing Influenza Types A,B Antigen (ABHISHEK) - Final NEGATIVE FOR FLU A AND B ANTIGEN.... Complete Imaging Last Impressions Chest X-Ray 09/14/17 0000 Signed Impressions: Service Date/Time: September 06:25 - CONCLUSION: No significant change Jose Francisco Colon MD Physical Exam CONSTITUTIONAL/GENERAL: This is an adequately nourished patient, in moderate resp distress. TUBES/LINES/DRAINS: SKIN: No jaundice, rashes, or lesions. Skin temperature appropriate. Not diaphoretic. HEAD: Atraumatic. Normocephalic. EYES: Pupils equal and round and reactive. Extraocular motions intact. No scleral icterus. No injection or drainage. Fundi not examined. ENT: moist mucosae NECK: Trachea midline. Supple, nontender. No palpable thyroid enlargement or nodularity. CARDIOVASCULAR: Regular rate and rhythm without murmurs, gallops, or rubs. No JVD. Peripheral pulses symmetric. RESPIRATORY/CHEST: Symmetric, unlabored respirations.no accessory muscle use ,Clear to auscultation. Breath sounds diminished at bases bilaterally. CT b/l with serosangious d/c GASTROINTESTINAL: Abdomen soft, non-tender, moderately distended. No hepato- splenomegaly, or palpable masses. No guarding. Bowel sounds present. GENITOURINARY: Without palpable bladder distension. Beckman catheter in place with clear light yellow urine MUSCULOSKELETAL: Extremities without clubbing, cyanosis, 2+ -3+ pittingedema. L foot with dressing in place NEUROLOGICAL: mildly lethargic, arouses easily, converses approprietely PSYCHIATRIC: appropriate anxiaty to the clinical settings Assessment & Plan Remarks DFI, L heel, Strep bovis Crystal tropicalis Osteomyelitis, L calcaneous, Strep bovis Previously reported bacteremia Strep bovis -AUSTEN neg for endocarditis HAP RLL - new - spuutum not available - negative leg/pneumoc/flu antigens Hypoxia- markedly improved after drainage of b/l pleural effusions Low grade coag neg staph bactermeia, doubt clin significance Large b/l pleural effusions - not favoriing parapneumonic effusions STAN - improving Severe leukocytosis cont cefepime cont zyvox (ASP: avoiding nephrotoxicity 2/2 acute renal insufficiency ) obtaine sputum clx if feasible fu blood clx untill final fu fluid clx cont azithro anticipate downgrading abx to previous Rx of CFTX if clx remain negative Renee Garcia MD Sep 14, 2017 15:55
[2017-09-14] MEDS: AZITHROMYCIN INJ 500 MG in SODIUM CHLOR 0.9% 250 ML INJ 250 ML IV SCH (16:00)
--- NOTE | 2017-09-14 17:25 | HHI.PR ---
Subjective Remarks 52 YOWM with RF,Pneumonia, Sepsis mild distress no Fever Had Bilat Pigtail chest cathetor On NC Objective Vital Signs Vital Signs Date Time Temp Pulse Resp B/P (MAP) Pulse Ox O2 Delivery O2 Flow Rate FiO2 09/14/17 14:00 91 09/14/17 13:15 95 Venturi Mask 50 09/14/17 12:00 91 09/14/17 10:00 91 09/14/17 08:00 98.5 87 29 140/71 (94) 98 09/14/17 08:00 91 09/14/17 07:46 94 Partial Rebreather 09/14/17 07:46 16 09/14/17 07:00 Bi-Pap 6.00 80 09/14/17 06:00 91 09/14/17 04:12 95 80 09/14/17 04:00 83 09/14/17 04:00 98.0 83 23 135/71 (92) 95 09/14/17 02:00 90 09/14/17 01:00 89 80 09/14/17 00:00 98.0 91 28 132/67 (88) 92 09/14/17 00:00 91 09/13/17 22:00 95 09/13/17 20:00 98 09/13/17 20:00 98.3 98 19 136/65 (88) 94 09/13/17 19:46 94 65 09/13/17 19:00 94 Bi-Pap 8.00 85 09/13/17 18:00 95 I/O 09/13/17 09/13/17 09/13/17 09/14/17 09/14/17 09/14/17 07:00 15:00 23:00 07:00 15:00 23:00 Intake Total 460 ml 1050 ml Output Total 650 ml 2100 ml Balance -190 ml 1050 ml -2100 ml Intake Oral 60 ml IV Total 400 ml 1050 ml Output Urine Total 650 ml 2100 ml # Bowel Movements 0 Result Diagram: 09/14/1751409/14/17514 Objective Remarks GENERAL: MBMN WM on BIPAP SKIN: Warm and dry. HEAD: Normocephalic. EYES: No scleral icterus. No injection or drainage. NECK: Supple, trachea midline. No JVD or lymphadenopathy. CARDIOVASCULAR: Regular rate and rhythm without murmurs, gallops, or rubs. RESPIRATORY: Breath sounds equal bilaterally. No accessory muscle use. GASTROINTESTINAL: Abdomen soft, non-tender, nondistended. MUSCULOSKELETAL: No cyanosis, or edema. BACK: Nontender without obvious deformity. No CVA tenderness. A/P Assessment and Plan Resp Failure COPD Sepsis Pneumonia DM PLAN BIPAP at night and prn If gets worse will need vent support Cont Abx Aerosol nebs IV Steroids Chest cathetor to suction Dariel Landry MD Sep 14, 2017 17:25
[2017-09-14] MEDS ORDERED: BUMETANIDE INJ 1 MG/4 ML VIAL IV PUSH SCH (18:00)
--- NOTE | 2017-09-14 19:22 | HHI.PR ---
Subjective Remarks late entry - patient seen at 1:50 pm Patient is sp BL pigtail chest catheter placement c/o pain on Bl chest, especially when moving, coughing or sneezing Currently on nasal cannula. Objective Vitals Vital Signs Date Time Temp Pulse Resp B/P (MAP) Pulse Ox O2 Delivery O2 Flow Rate FiO2 09/14/17 14:00 91 09/14/17 13:15 95 Venturi Mask 50 09/14/17 12:00 91 09/14/17 10:00 91 09/14/17 08:00 98.5 87 29 140/71 (94) 98 09/14/17 08:00 91 09/14/17 07:46 94 Partial Rebreather 09/14/17 07:46 16 09/14/17 07:00 Bi-Pap 6.00 80 09/14/17 06:00 91 09/14/17 04:12 95 80 09/14/17 04:00 83 09/14/17 04:00 98.0 83 23 135/71 (92) 95 09/14/17 02:00 90 09/14/17 01:00 89 80 09/14/17 00:00 98.0 91 28 132/67 (88) 92 09/14/17 00:00 91 09/13/17 22:00 95 09/13/17 20:00 98 09/13/17 20:00 98.3 98 19 136/65 (88) 94 09/13/17 19:46 94 65 I/O 09/13/17 09/13/17 09/13/17 09/14/17 09/14/17 09/14/17 07:00 15:00 23:00 07:00 15:00 23:00 Intake Total 460 ml 1050 ml Output Total 650 ml 2100 ml Balance -190 ml 1050 ml -2100 ml Intake Oral 60 ml IV Total 400 ml 1050 ml Output Urine Total 650 ml 2100 ml # Bowel Movements 0 Result Diagram: 09/14/17 0515 09/14/17 0515 Imaging Last Impressions Chest X-Ray 09/14/17 0000 Signed Impressions: Service Date/Time: September 13:27 - CONCLUSION: 2 small bilateral chest tubes are in place. No definite pneumothorax. Scattered bilateral pulmonary infiltrates right greater than left. Simba Hastings MD Objective Remarks GENERAL: This is a well-nourished, well-developed critically ill patient, on NC - mild distress SKIN: No rashes, ecchymoses or lesions. Cool and diaphoretic CARDIOVASCULAR: Regular rate and rhythm without murmurs, gallops, or rubs. RESPIRATORY: Decreased Breath sounds worse on the right lung base - BL chest tube placement GASTROINTESTINAL: Abdomen soft, non-tender, nondistended. No guarding. MUSCULOSKELETAL: Extremities without clubbing, cyanosis, but with bilateral lower extremity pitting edema. Left heel with wound vac NEUROLOGICAL: Alert and oriented Cranial nerves II through XII intact. Motor and sensory grossly within normal limits. Five out of 5 muscle strength in all muscle groups. Normal speech. Procedures BL pigatil catheter chest placement on 09/14 Medications and IVs Current Medications Medications (Trade) Dose Ordered Sig/Sumanth Route Start Time Stop Time Status Last Admin Azithromycin 500 mg/Sodium Chloride 250 ml @ 250 mls/hr Q24H IV 09/11/17 16:00 09/13/17 16:00 (Norvasc) 5 mg BID PO 09/10/17 21:00 09/14/17 08:41 (Vitamin C) 500 mg DAILY PO 09/11/17 09:00 09/14/17 08:42 (Aspirin Chew) 81 mg DAILY PO 09/11/17 09:00 09/14/17 08:42 (Lipitor) 40 mg DAILY PO 09/11/17 09:00 09/14/17 08:41 (Proscar) 5 mg DAILY PO 09/11/17 09:00 09/14/17 08:42 (Diflucan) 200 mg DAILY PO 09/11/17 09:00 09/14/17 08:42 (Neurontin) 600 mg QID PO 09/10/17 18:00 09/14/17 18:45 (Apresoline) 25 mg Q8HR PO 09/10/17 22:00 09/13/17 20:47 (Theragran M Tab) 1 tab DAILY PO 09/11/17 09:00 09/14/17 08:41 (Nicotine Gum) 4 mg Q2H PRN CHEW 09/10/17 16:15 (D50w (Syr) Inj) 50 ml UNSCH PRN IV PUSH 09/10/17 16:30 (Glucagon Inj) 1 mg UNSCH PRN OTHER 09/10/17 16:30 (NovoLOG SUPPLEMENTAL SCALE) 1 ACHS SLIDING SCALE SQ 09/10/17 17:00 09/14/17 08:00 (Vasotec Inj) 1.25 mg Q6H PRN IV PUSH 09/10/17 16:30 (Apresoline Inj) 10 mg Q6H PRN IV PUSH 09/10/17 16:30 (Catapres) 0.1 mg Q6H PRN PO 09/10/17 16:30 (Duoneb Neb) 1 ampule QID NEB NEB 09/10/17 20:00 09/14/17 11:13 (Albuterol Neb) 2.5 mg Q2HR NEB PRN NEB 09/10/17 16:30 09/14/17 03:16 (NS Flush) 2 ml UNSCH PRN IV FLUSH 09/10/17 16:30 09/11/17 09:47 (NS Flush) 2 ml BID IV FLUSH 09/10/17 21:00 09/14/17 08:43 (Tylenol) 650 mg Q4H PRN PO 09/10/17 16:30 (Zofran Inj) 4 mg Q6H PRN IVP 09/10/17 16:30 (Tylenol) 650 mg Q6H PRN PO 09/10/17 16:30 (Honeydew 5-325 Mg) 1 tab Q4H PRN PO 09/10/17 16:30 (Morphine Inj) 1 mg Q3H PRN IV PUSH 09/10/17 16:30 09/14/17 13:05 (Narcan Inj) 0.4 mg UNSCH PRN IV PUSH 09/10/17 16:30 (Alanna-Colace) 1 tab BID PO 09/10/17 21:00 09/14/17 08:41 (Senokot) 17.2 mg Q12H PRN PO 09/10/17 16:30 (Dulcolax Supp) 10 mg DAILY PRN RECTAL 09/10/17 16:30 (Lactulose Liq) 30 ml DAILY PRN PO 09/10/17 16:30 (Heparin Inj) 5,000 units Q8HR SQ 09/10/17 22:00 09/14/17 13:50 (Honeydew 10-325 Mg) 1 tab Q4H PRN PO 09/10/17 17:00 09/14/17 13:06 (Protonix) 40 mg DAILY PO 09/11/17 21:00 09/14/17 08:41 (SoluMEDROL INJ) 40 mg Q6HR IV PUSH 09/11/17 12:00 09/14/17 18:43 (Levemir Inj) 40 units BID SQ 09/11/17 21:00 09/14/17 08:43 (Ativan Inj) 1 mg Q6H PRN IV PUSH 09/11/17 14:00 09/13/17 17:39 Miscellaneous Information Patient in critical care unit? Ass... [id number] .XX 09/11/17 19:00 (Chlorhexidine 2% Cloth) 3 pack DAILY@04 TOPICAL 09/12/17 04:00 09/16/17 04:01 09/13/17 20:24 (Chlorhexidine 2% Cloth) 3 pack UNSCH PRN TOPICAL 09/11/17 19:00 09/16/17 18:49 Sodium Chloride 1,000 ml @ 84 mls/hr [id number] IV 09/12/17 10:30 09/13/17 20:24 Cefepime HCl 2000 mg/Sodium Chloride 100 ml @ 200 mls/hr Q12H IV 09/12/17 12:00 09/14/17 13:49 Linezolid 300 ml @ 300 mls/hr Q12H IV 09/12/17 13:00 09/14/17 13:51 (Bactroban Nasal 2% Oint) 1 applic BID EACH NARE 09/13/17 10:30 09/20/17 10:29 09/14/17 08:43 (Tums Chew) 500 mg Q6H PRN CHEW 09/13/17 10:30 Albumin Human 100 ml @ 60 mls/hr Q8H IV 09/14/17 14:00 09/16/17 13:59 09/14/17 13:52 (Bumex Inj) 1 mg BID@,18 IV PUSH 09/14/17 18:00 09/14/17 18:44 A/P Problem List: (1) Sepsis ICD Code: A41.9 - Sepsis, unspecified organism Status: Acute (2) Hospital-acquired pneumonia ICD Code: J18.9 - Pneumonia, unspecified organism Status: Acute Assessment and Plan This is a 52-year-old male with a history of COPD, diabetes mellitus, chronic pain, arthritis, CVA, hyperlipidemia, GERD, hypertension and neuropathy. He presents to the emergency department complaining of shortness of breath for the past 2 days associated with nonproductive cough and chills. Chest x-ray shows consolidation in the right lung base and has been started Zithromax and Zosyn. Acute respiratory failure secondary to pneumonia with history of COPD. patient status post bilateral pigtail catheter placement for drainage of pleural effusions. This was discussed earlier in am with Dr Felton. Sepsis secondary to hospital acquired pneumonia. Lactic acid 1.3. Follow-up blood cultures with staph epi in 1 out of 4 bottles. Negative urinary Legionella and pneumococcal antigen. Still meets criteria for sepsis \ leukocytosis, tachycardia. Antimicrobial was switched to IV Zosyn, cefepime by ID. Continue IV Zithromax 09/14 and Jenn antibiotics as per ID. The patient currently on cefepime and azithromycin IV. He also has a left heel wound being treated for osteomyelitis with IM Rocephin and Diflucan. Culture with strep bovis negative colonoscopy. Continue Diflucan and will hold Rocephin as patient will be on Zosyn. Consulted podiatry and extractions technologist for wound VAC. Diabetes mellitus. Uncontrolled on steroids. Will adjust Levemir insulin depending on glycemic trends. Monitor fingerstick with sliding scale coverage. Euglycemic yesterday patient did not receive Levemir because of poor by mouth tolerance 09/14 blood sugar still uncontrolled in the 200s. Continue Levemir at 4 units subcutaneous twice a day. I will increase the dose of insulin NovoLog medium and start the patient on prandial insulin. Hypertension. Improving. Restart home medication with as needed IV Vasotec, hydralazine and clonidine 09/14 BP stable. Continue amlodipine 5 Mg by mouth twice a day with clonidine as needed. Acute kidney injury. Nonoliguric. Improving continue IV hydration and avoid nephrotoxins. Repeat BMP and magnesium in the morning. Urinalysis with protein. Consider David FEN. IVF and TF Discontinue Beckman catheter per protocol DVT prophylaxis with subcutaneous heparin Problem Qualifiers (1) Sepsis: Qualified Codes: A41.9 - Sepsis, unspecified organism Boo Zamudio MD Sep 14, 2017 19:22
[2017-09-14] MEDS: CHLORHEXIDINE GLUCONATE 2 % 1 PACK (2 CLOTHS)(taper/protocol) TOPICAL SCH (20:13)
[2017-09-15] VITALS (20 sets, daily range): BP systolic 116–163; BP diastolic 60–87; PULSE 78–93; RESP 14–30; TEMP 98–98.5; O2SAT 90–100
[2017-09-15] MEDS: methylPREDNISolone SOD SUCC 40 MG/1 ML VIAL IV PUSH SCH ×4 (04:12→22:14)
[2017-09-15] MEDS: MORPHINE SULFATE 4 MG/ML INJ IV PUSH PRN ×3 (04:12→22:14)
[2017-09-15] MEDS: HEPARIN SODIUM - SQ 10,000 UNITS/ML VIAL SQ SCH ×3 (04:12→19:51)
[2017-09-15] MEDS: ALBUMIN 25% INJ 100 ML IV SCH ×3 (04:12→19:42)
[2017-09-15] MEDS: hydrALAZINE HCL 25 MG TAB PO SCH ×3 (04:13→19:53)
[2017-09-15] MEDS: RESP: ALBUTEROL 2.5 MG/3 ML NEB (PRN) NEB (06:14)
--- NOTE | 2017-09-15 08:47 | PD.POD ---
Subjective Podiatric Problems LATE ENTRY-PT SEEN 09/14/17 AT 1130. Pt is s/p left foot partial calcanectomy and achilles tendon debridement approximately 6 weeks ago with . Pt denies any pain or concerns regarding the foot. Pain score: 0 Past Med/Surg/Social History Social History Smoking Status: Former Smoker Objective Vital Signs Vital Signs Date Time Temp Pulse Resp B/P (MAP) Pulse Ox O2 Delivery O2 Flow Rate FiO2 09/15/17 07:00 Bi-Pap 80 09/15/17 06:19 93 80 09/15/17 06:00 93 09/15/17 04:29 93 70 09/15/17 04:00 83 09/15/17 04:00 98.0 83 21 140/71 (94) 91 09/15/17 02:00 78 09/15/17 00:12 93 70 09/15/17 00:00 84 09/15/17 00:00 98.0 84 20 116/60 (78) 91 09/14/17 22:00 85 09/14/17 20:35 98 60 09/14/17 20:00 88 09/14/17 20:00 99 70 09/14/17 20:00 97.3 88 25 151/71 (97) 99 09/14/17 19:00 Bi-Pap 6.00 60 09/14/17 18:00 91 09/14/17 16:00 91 09/14/17 16:00 98.0 90 24 130/65 (86) 95 09/14/17 14:00 91 09/14/17 13:15 95 Venturi Mask 50 09/14/17 13:10 18 09/14/17 12:00 91 09/14/17 12:00 98.0 97 17 134/67 (89) 94 09/14/17 10:00 91 Coded Allergies: *MDRO Multi-Drug Resistant Organism (Verified Adverse Reaction, Unknown, 09/10/17) MRSA (arm wound) - 01/2016 MRSA (blood, urine, wound) - 06/2013 Exam-Podiatry Remarks Derm: Posterior heel ulcer 5cm x 5cm x 0.7cm granular wound bed with healthy skin borders, no erythema, no drainage, no malodor. Suture removed from proximal surgical site, skin edges remain well coapted. Assessment & Plan A/P 1) Left heel ulcer stage II non infected 2) s/p left partial calcanectomy and achilles debridement -cont wound VAC for increased granulation tissue (M/W/F) -cont offloading the site with pillow boots -will follow intermittently while in house Ysabel Echols DPM Sep 15, 2017 08:47
[2017-09-15] MEDS: SODIUM CHLORIDE 0.9% FLUSH 10 ML FLUSH IV FLUSH SCH ×2 (09:00→19:43)
[2017-09-15] MEDS: ASPIRIN 81 MG CHEW TAB PO SCH (09:00)
[2017-09-15] MEDS: ASCORBIC ACID 500 MG TAB PO SCH (09:00)
[2017-09-15] MEDS: FLUCONAZOLE 200 MG TAB PO SCH (09:00)
[2017-09-15] MEDS: PANTOPRAZOLE SOD 40 MG DELAYED RELEASE TAB PO SCH (09:00)
[2017-09-15] MEDS: DOCUSATE SODIUM 50 MG/SENNA 8.6 MG TAB PO SCH ×2 (09:00→19:43)
[2017-09-15] MEDS: INSULIN DETEMIR 100 UNITS/ML VIAL SQ SCH ×2 (09:00→19:43)
[2017-09-15] MEDS: MUPIROCIN 2% OINT 1 APPLIC/GM SYR EACH NARE SCH ×2 (09:00→19:42)
[2017-09-15] MEDS: amLODIPine BESYLATE 5 MG TAB PO SCH ×2 (09:00→19:42)
[2017-09-15] MEDS: ATORVASTATIN 40 MG TAB PO SCH (09:00)
[2017-09-15] MEDS: GABAPENTIN 300 MG CAP PO SCH ×4 (09:00→19:42)
[2017-09-15] MEDS: FINASTERIDE 5 MG TAB PO SCH (09:00)
[2017-09-15] MEDS: MULTIVITAMINS/MINERALS THERAPEUTIC TAB PO SCH (09:00)
--- NOTE | 2017-09-15 10:29 | RADRPT ---
EXAM DATE/TIME: 09/15/2017 09:25 [facility] COMPARISON: CHEST SINGLE AP, September 14, 2017, 13:27. INDICATIONS : Short of breath. MEDICAL HISTORY : Diabetes mellitus type II. Hypertension Chronic obstructive pulmonary disease. SURGICAL HISTORY : Debridement of bilateral feet. ENCOUNTER: Subsequent ACUITY: 1 week PAIN SCORE: 0/10 LOCATION: Bilateral chest FINDINGS: Coarse parenchymal changes in both lungs that have increased slightly on the right. PICC line in goo d position. The heart and pulmonary vascularity are normal. CONCLUSION: Minimal increased parenchymal changes right lung Piyush Barrera MD FACR on September 15, 2017 at 10:27 Board Certified Radiologist. This report was verified electronically.
--- NOTE | 2017-09-15 13:02 | HHI.PR ---
Subjective Remarks Reviewed overnight events with RN Patient oxygen saturation dropped yesterday after I left as per RN Patient was placed on nonrebreather mask and then on BiPAP. Ration is currently on BiPAP satting 94% on 65% oxygen. No fevers or chills. Patient denies any chest pain. Objective Vitals Vital Signs Date Time Temp Pulse Resp B/P (MAP) Pulse Ox O2 Delivery O2 Flow Rate FiO2 09/15/17 12:00 92 09/15/17 12:00 98.5 91 30 163/75 (104) 94 09/15/17 10:04 90 BiPAP 65 09/15/17 10:00 92 09/15/17 09:58 91 65 09/15/17 08:00 98.4 84 24 162/75 (104) 98 09/15/17 08:00 92 09/15/17 07:00 Bi-Pap 80 09/15/17 06:19 93 80 09/15/17 06:00 93 09/15/17 04:29 93 70 09/15/17 04:00 83 09/15/17 04:00 98.0 83 21 140/71 (94) 91 09/15/17 02:00 78 09/15/17 00:12 93 70 09/15/17 00:00 84 09/15/17 00:00 98.0 84 20 116/60 (78) 91 09/14/17 22:00 85 09/14/17 20:35 98 60 09/14/17 20:00 88 09/14/17 20:00 99 70 09/14/17 20:00 97.3 88 25 151/71 (97) 99 09/14/17 19:00 Bi-Pap 6.00 60 09/14/17 18:00 91 09/14/17 16:00 91 09/14/17 16:00 98.0 90 24 130/65 (86) 95 09/14/17 14:00 91 09/14/17 13:15 95 Venturi Mask 50 09/14/17 13:10 18 I/O 09/14/17 09/14/17 09/14/17 09/15/17 09/15/17 09/15/17 07:00 15:00 23:00 07:00 15:00 23:00 Intake Total 1320 ml 400 ml Output Total 2100 ml 7000 ml 1370 ml Balance -2100 ml -5680 ml -970 ml Intake Oral 720 ml IV Total 600 ml 400 ml Output Urine Total 2100 ml 1100 ml 1200 ml Chest Tube Drainage Total 5900 ml 170 ml Result Diagram: 09/14/17 0515 09/14/17 0515 Imaging Last Impressions Chest X-Ray 09/15/17 0000 Signed Impressions: Service Date/Time: Friday, September 15, 2017 09:25 - CONCLUSION: Minimal increased parenchymal changes right lung Piyush Barrera MD FACR Reviewed by me Objective Remarks GENERAL: This is a well-nourished, well-developed critically ill patient, on NC - mild distress SKIN: No rashes, ecchymoses or lesions. Very pale. CARDIOVASCULAR: Regular rate and rhythm without murmurs, gallops, or rubs. RESPIRATORY: Decreased breath sounds bilaterally, however no wheezing or rhonchi auscultated.- BL chest tube in place. GASTROINTESTINAL: Abdomen soft, non-tender, nondistended. No guarding. MUSCULOSKELETAL: Extremities without clubbing, cyanosis, but with bilateral lower extremity pitting edema. Left heel with wound vac NEUROLOGICAL: Alert and oriented Cranial nerves II through XII intact. Motor and sensory grossly within normal limits. Five out of 5 muscle strength in all muscle groups. Normal speech. Procedures BL pigatil catheter chest placement on 09/14 Medications and IVs Current Medications Medications (Trade) Dose Ordered Sig/Sumanth Route Start Time Stop Time Status Last Admin Azithromycin 500 mg/Sodium Chloride 250 ml @ 250 mls/hr Q24H IV 09/11/17 16:00 09/13/17 16:00 (Norvasc) 5 mg BID PO 09/10/17 21:00 09/14/17 20:10 (Vitamin C) 500 mg DAILY PO 09/11/17 09:00 09/14/17 08:42 (Aspirin Chew) 81 mg DAILY PO 09/11/17 09:00 09/14/17 08:42 (Lipitor) 40 mg DAILY PO 09/11/17 09:00 09/14/17 08:41 (Proscar) 5 mg DAILY PO 09/11/17 09:00 09/14/17 08:42 (Diflucan) 200 mg DAILY PO 09/11/17 09:00 09/14/17 08:42 (Neurontin) 600 mg QID PO 09/10/17 18:00 09/15/17 14:09 (Apresoline) 25 mg Q8HR PO 09/10/17 22:00 09/15/17 14:10 (Theragran M Tab) 1 tab DAILY PO 09/11/17 09:00 09/14/17 08:41 (Nicotine Gum) 4 mg Q2H PRN CHEW 09/10/17 16:15 (Vasotec Inj) 1.25 mg Q6H PRN IV PUSH 09/10/17 16:30 (Apresoline Inj) 10 mg Q6H PRN IV PUSH 09/10/17 16:30 (Catapres) 0.1 mg Q6H PRN PO 09/10/17 16:30 (Albuterol Neb) 2.5 mg Q2HR NEB PRN NEB 09/10/17 16:30 09/15/17 06:14 (NS Flush) 2 ml UNSCH PRN IV FLUSH 09/10/17 16:30 09/11/17 09:47 (NS Flush) 2 ml BID IV FLUSH 09/10/17 21:00 09/14/17 20:11 (Tylenol) 650 mg Q4H PRN PO 09/10/17 16:30 (Zofran Inj) 4 mg Q6H PRN IVP 09/10/17 16:30 (Tylenol) 650 mg Q6H PRN PO 09/10/17 16:30 ([place] 5-325 Mg) 1 tab Q4H PRN PO 09/10/17 16:30 (Morphine Inj) 1 mg Q3H PRN IV PUSH 09/10/17 16:30 09/15/17 04:12 (Narcan Inj) 0.4 mg UNSCH PRN IV PUSH 09/10/17 16:30 (Alanna-Colace) 1 tab BID PO 09/10/17 21:00 09/14/17 20:11 (Senokot) 17.2 mg Q12H PRN PO 09/10/17 16:30 (Dulcolax Supp) 10 mg DAILY PRN RECTAL 09/10/17 16:30 (Lactulose Liq) 30 ml DAILY PRN PO 09/10/17 16:30 (Heparin Inj) 5,000 units Q8HR SQ 09/10/17 22:00 09/15/17 14:10 ([place] 10-325 Mg) 1 tab Q4H PRN PO 09/10/17 17:00 09/14/17 20:12 (Protonix) 40 mg DAILY PO 09/11/17 21:00 09/14/17 08:41 (SoluMEDROL INJ) 40 mg Q6HR IV PUSH 09/11/17 12:00 09/15/17 14:10 (Levemir Inj) 40 units BID SQ 09/11/17 21:00 09/14/17 20:10 (Ativan Inj) 1 mg Q6H PRN IV PUSH 09/11/17 14:00 09/13/17 17:39 Miscellaneous Information Patient in critical care unit? Ass... [id number] .XX 09/11/17 19:00 (Chlorhexidine 2% Cloth) 3 pack DAILY@04 TOPICAL 09/12/17 04:00 09/16/17 04:01 09/14/17 20:13 (Chlorhexidine 2% Cloth) 3 pack UNSCH PRN TOPICAL 09/11/17 19:00 09/16/17 18:49 Cefepime HCl 2000 mg/Sodium Chloride 100 ml @ 200 mls/hr Q12H IV 09/12/17 12:00 09/15/17 14:11 Linezolid 300 ml @ 300 mls/hr Q12H IV 09/12/17 13:00 09/15/17 14:11 (Bactroban Nasal 2% Oint) 1 applic BID EACH NARE 09/13/17 10:30 09/20/17 10:29 09/14/17 20:11 (Tums Chew) 500 mg Q6H PRN CHEW 09/13/17 10:30 Albumin Human 100 ml @ 60 mls/hr Q8H IV 09/14/17 14:00 09/16/17 13:59 09/15/17 04:12 (Bumex Inj) 1 mg Q8H IV PUSH 09/15/17 17:00 Urinary Catheter: Yes Assessment to: Continue Beckman insert reason: ICU Pt Getting Diuretics Vascular Central Line Catheter: Yes Assessment to: Continue A/P Problem List: (1) Sepsis ICD Code: A41.9 - Sepsis, unspecified organism Status: Acute (2) Hospital-acquired pneumonia ICD Code: J18.9 - Pneumonia, unspecified organism Status: Acute (3) Diabetes mellitus with hyperglycemia ICD Code: E11.65 - Type 2 diabetes mellitus with hyperglycemia (4) STAN (acute kidney injury) ICD Code: N17.9 - Acute kidney failure, unspecified (5) COPD exacerbation ICD Code: J44.1 - Chronic obstructive pulmonary disease with (acute) exacerbation (6) HTN (hypertension) ICD Code: I10 - Essential (primary) hypertension Status: Chronic (7) Severe mitral regurgitation ICD Code: I34.0 - Nonrheumatic mitral (valve) insufficiency Status: Acute Assessment and Plan This is a 52-year-old male with a history of COPD, diabetes mellitus, chronic pain, arthritis, CVA, hyperlipidemia, GERD, hypertension and neuropathy. He presents to the emergency department complaining of shortness of breath for the past 2 days associated with nonproductive cough and chills. Chest x-ray shows consolidation in the right lung base and has been started Zithromax and Zosyn. 1. Acute hypoxemic respiratory failure. Failure likely a combination of pneumonia, COPD exacerbation and possibly some degree of congestive heart failure. Patient status post bilateral pigtail catheter placement on 09/14 for drainage of pleural effusions. This was discussed with Dr. Felton from intensive care medicine. Echocardiogram performed on 08/11/17 showed a normal ejection fraction the range of 55-60%.AUSTEN showed severe mitral valve regurgitation, however Dr. Fine from cardiology determined that the patient was not a candidate for possible surgical intervention at that time. Patient still requiring BiPAP. Chest x-ray obtained today (09/15) shows minimal increased parenchymal changes in the right lung. Continue IV antibiotics as per ID recommendations. The patient currently on cefepime IV, azithromycin IV and Linezolid. Continue Bi pap and taper oxygen as tolerated. Continue Bumex but increase dose to 1 mg IV every 8 hours. Will check cardiac enzymes, EKG and consult cardiology. 2. Sepsis secondary to hospital acquired pneumonia. Lactic acid 1.3. Follow-up blood cultures with staph epi in 1 out of 4 bottles. Negative urinary Legionella and pneumococcal antigen. Still meets criteria for sepsis \leukocytosis, tachycardia. Continue antibiotics as per ID recommendations. Continue to provide supplemental oxygen and BiPAP as needed to keep oxygen saturation more than 92%. 3. Left heel ulcer stage II. Patient status post left partial calcanectomy and Achilles department. Podiatry has been consulted. The patient's left heel had been treated for osteomyelitis with IM Rocephin and Diflucan. Podiatry consulted. The patient was seen by Dr. Ysabel Echols. Recommended continuation of wound VAC for increased granulation tissue. (M/W/F). Continue offloading of this I with pillow boots. 4. Diabetes mellitus with hyperglycemia. Blood sugars are very elevated and uncontrolled. The patient insulin sliding scale was rated to a medium dose and the patient was started on prandial insulin. 11/ blood sugar still uncontrolled in the 200s. Continue Levemir at 4 units subcutaneous twice a day. I will increase the dose of insulin NovoLog medium and start the patient on prandial insulin. 5. Uncontrolled Hypertension. 09/14 BP stable. Continue amlodipine 5 Mg by mouth twice a day with clonidine as needed. 11/3 BP elevated into the 160s. This likely secondary to steroid use. I will increase amlodipine 5 mg to 10 mg by mouth daily. 6. Acute kidney injury. Nonoliguric. Improving continue IV hydration and avoid nephrotoxins. Repeat BMP and magnesium in the morning. Urinalysis with protein. Consider David FEN. IVF and TF DVT prophylaxis with subcutaneous heparin Discharge Planning Patient with acute hypoxemic respiratory failure, currently on BiPAP. Continue to monitor in intensive care unit. Problem Qualifiers (1) Sepsis: Qualified Codes: A41.9 - Sepsis, unspecified organism Boo Zamudio MD Sep 15, 2017 13:02
[2017-09-15 14:06] LABS: AUTOMATED NEUTROPHIL # 20.3 TH/MM3 (1.8-7.7); BASOPHIL % 0.1 % (0.0-2.0); HEMATOCRIT 27.5 % (39.0-51.0); HEMO FLAGS DIFF FINAL; LYMPH % 5.4 % (9.0-44.0); LYMPHOCYTE # 1.2 TH/MM3 (1.0-4.8); MEAN CELL VOLUME 76.9 FL (80.0-100.0); MEAN CORPUSCULAR HEMOGLOBIN 24.4 PG (27.0-34.0); MEAN CORPUSCULAR HGB CONC 31.8 % (32.0-36.0); MONO % 6.2 % (0.0-8.0); NEUT % 88.3 % (16.0-70.0); PLATELET COUNT 528 TH/MM3 (150-450); RED BLOOD COUNT 3.57 MIL/MM3 (4.50-5.90); RED CELL DISTRIBUTION WIDTH 21.8 % (11.6-17.2); WHITE BLOOD COUNT 22.9 TH/MM3 (4.0-11.0)
[2017-09-15] MEDS: CEFEPIME INJ 2,000 MG in SODIUM CHLORIDE 0.9% INJ 100 ML IV SCH ×2 (14:11→22:14)
[2017-09-15] MEDS: LINEZOLID 600 MG PREMIX 300 ML IV SCH (14:11)
[2017-09-15 14:33] LABS: ALT (GPT) 80 U/L (12-78); ANION GAP 11 MEQ/L (5-15); AST (GOT) 25 U/L (15-37); BLOOD UREA NITROGEN 61 MG/DL (7-18); CHLORIDE 103 MEQ/L (98-107); GLOMERULAR FILTRATION RATE 51 ML/MIN (>89); MAGNESIUM 2.7 MG/DL (1.5-2.5); POTASSIUM 4.4 MEQ/L (3.5-5.1); SODIUM (NA) 137 MEQ/L (136-145)
[2017-09-15 14:38] LABS: ALKALINE PHOSPHATASE 124 U/L (45-117); TOTAL BILIRUBIN ADULT 0.3 MG/DL (0.2-1.0)
[2017-09-15] MEDS ORDERED: DEXTROSE 50% IN WATER 50 ML VIAL(D50) IV PUSH PRN (14:45)
[2017-09-15] MEDS ORDERED: GLUCAGON 1 MG/ML VIAL OTHER PRN (14:45)
[2017-09-15] MEDS: AZITHROMYCIN INJ 500 MG in SODIUM CHLOR 0.9% 250 ML INJ 250 ML IV SCH (16:00)
[2017-09-15] MEDS: ACETAMINOPHEN/HYDROcodone 325 MG/10 MG TAB PO PRN ×3 (16:35→23:14)
[2017-09-15] MEDS: INSULIN ASPART SUPPLEMENTAL SCALE SQ SCH ×2 (17:00→19:44)
[2017-09-15] MEDS: BUMETANIDE INJ 1 MG/4 ML VIAL IV PUSH SCH ×2 (17:00→23:14)
--- NOTE | 2017-09-15 17:44 | HHI.PR ---
Subjective Remarks 52 YOWM with RF,Pneumonia, Sepsis mild distress no Fever Bilat Pigtail chest cathetor draining On BIPAP 65% Feels less sob Objective Vital Signs Vital Signs Date Time Temp Pulse Resp B/P (MAP) Pulse Ox O2 Delivery O2 Flow Rate FiO2 09/15/17 13:21 94 65 09/15/17 12:00 92 09/15/17 12:00 98.5 91 30 163/75 (104) 94 09/15/17 10:04 90 BiPAP 65 09/15/17 10:00 92 09/15/17 09:58 91 65 09/15/17 08:00 98.4 84 24 162/75 (104) 98 09/15/17 08:00 92 09/15/17 07:00 Bi-Pap 80 09/15/17 06:19 93 80 09/15/17 06:00 93 09/15/17 04:29 93 70 09/15/17 04:00 83 09/15/17 04:00 98.0 83 21 140/71 (94) 91 09/15/17 02:00 78 09/15/17 00:12 93 70 09/15/17 00:00 84 09/15/17 00:00 98.0 84 20 116/60 (78) 91 09/14/17 22:00 85 09/14/17 20:35 98 60 09/14/17 20:00 88 09/14/17 20:00 99 70 09/14/17 20:00 97.3 88 25 151/71 (97) 99 09/14/17 19:00 Bi-Pap 6.00 60 09/14/17 18:00 91 I/O 09/14/17 09/14/17 09/14/17 09/15/17 09/15/17 09/15/17 07:00 15:00 23:00 07:00 15:00 23:00 Intake Total 1320 ml 400 ml Output Total 2100 ml 7000 ml 1370 ml Balance -2100 ml -5680 ml -970 ml Intake Oral 720 ml IV Total 600 ml 400 ml Output Urine Total 2100 ml 1100 ml 1200 ml Chest Tube Drainage Total 5900 ml 170 ml Result Diagram: 09/15/17 1353 09/15/17 1353 Objective Remarks GENERAL: MBMN WM on BIPAP SKIN: Warm and dry. HEAD: Normocephalic. EYES: No scleral icterus. No injection or drainage. NECK: Supple, trachea midline. No JVD or lymphadenopathy. CARDIOVASCULAR: Regular rate and rhythm without murmurs, gallops, or rubs. RESPIRATORY: Breath sounds equal bilaterally. No accessory muscle use. GASTROINTESTINAL: Abdomen soft, non-tender, nondistended. MUSCULOSKELETAL: No cyanosis, or edema. BACK: Nontender without obvious deformity. No CVA tenderness. A/P Assessment and Plan Resp Failure COPD Sepsis Pneumonia DM PLAN Cont BIPAP If gets worse will need vent support Cont Abx Aerosol nebs IV Steroids Chest cathetor to suction Dariel Landry MD Sep 15, 2017 17:44
--- NOTE | 2017-09-15 19:13 | HHI.IDPN ---
Subjective Subjective Remarks Breathing worse on BIPAP again afebrile fluid cw transudate, no growth @ 48 hrs Antibiotics azithro cefepime linezolid Allergies: Coded Allergies: *MDRO Multi-Drug Resistant Organism (Verified Adverse Reaction, Unknown, 09/10/17) MRSA (arm wound) - 01/2016 MRSA (blood, urine, wound) - 06/2013 Objective . Vital Signs Date Time Temp Pulse Resp B/P (MAP) Pulse Ox O2 Delivery O2 Flow Rate FiO2 09/15/17 13:21 94 65 09/15/17 12:00 92 09/15/17 12:00 98.5 91 30 163/75 (104) 94 09/15/17 10:04 90 BiPAP 65 09/15/17 10:00 92 09/15/17 09:58 91 65 09/15/17 08:00 98.4 84 24 162/75 (104) 98 09/15/17 08:00 92 09/15/17 07:00 Bi-Pap 80 09/15/17 06:19 93 80 09/15/17 06:00 93 09/15/17 04:29 93 70 09/15/17 04:00 83 09/15/17 04:00 98.0 83 21 140/71 (94) 91 09/15/17 02:00 78 09/15/17 00:12 93 70 09/15/17 00:00 84 09/15/17 00:00 98.0 84 20 116/60 (78) 91 09/14/17 22:00 85 09/14/17 20:35 98 60 09/14/17 20:00 88 09/14/17 20:00 99 70 09/14/17 20:00 97.3 88 25 151/71 (97) 99 . Laboratory Tests Test 09/14/17 05:15 09/15/17 13:53 White Blood Count 20.2 TH/MM3 22.9 TH/MM3 Red Blood Count 3.50 MIL/MM3 3.57 MIL/MM3 Hemoglobin 8.5 GM/DL 8.7 GM/DL Hematocrit 27.1 % 27.5 % Mean Corpuscular Volume 77.2 FL 76.9 FL Mean Corpuscular Hemoglobin 24.2 PG 24.4 PG Mean Corpuscular Hemoglobin Concent 31.3 % 31.8 % Red Cell Distribution Width 21.4 % 21.8 % Platelet Count 572 TH/MM3 528 TH/MM3 Mean Platelet Volume 8.0 FL 7.8 FL Neutrophils (%) (Auto) 89.5 % 88.3 % Lymphocytes (%) (Auto) 5.8 % 5.4 % Monocytes (%) (Auto) 4.6 % 6.2 % Eosinophils (%) (Auto) 0.0 % 0.0 % Basophils (%) (Auto) 0.1 % 0.1 % Neutrophils # (Auto) 18.1 TH/MM3 20.3 TH/MM3 Lymphocytes # (Auto) 1.2 TH/MM3 1.2 TH/MM3 Monocytes # (Auto) 0.9 TH/MM3 1.4 TH/MM3 Eosinophils # (Auto) 0.0 TH/MM3 0.0 TH/MM3 Basophils # (Auto) 0.0 TH/MM3 0.0 TH/MM3 CBC Comment DIFF FINAL DIFF FINAL Differential Comment Laboratory Tests Test 09/14/17 05:15 09/15/17 13:53 Blood Urea Nitrogen 54 MG/DL 61 MG/DL Creatinine 1.32 MG/DL 1.44 MG/DL Random Glucose 252 MG/DL 245 MG/DL Calcium Level 7.9 MG/DL 8.1 MG/DL Magnesium Level 2.7 MG/DL 2.7 MG/DL Sodium Level 139 MEQ/L 137 MEQ/L Potassium Level 4.8 MEQ/L 4.4 MEQ/L Chloride Level 104 MEQ/L 103 MEQ/L Carbon Dioxide Level 22.3 MEQ/L 23.0 MEQ/L Anion Gap 13 MEQ/L 11 MEQ/L Estimat Glomerular Filtration Rate 57 ML/MIN 51 ML/MIN Total Protein 6.2 GM/DL Albumin 2.8 GM/DL Phosphorus Level 3.3 MG/DL Alkaline Phosphatase 124 U/L Aspartate Amino Transf (AST/SGOT) 25 U/L Alanine Aminotransferase (ALT/SGPT) 80 U/L Total Bilirubin 0.3 MG/DL Microbiology Date/Time Source Procedure Growth Status 09/13/17 13:46 Fluid Pleural Fluid Fungal Smear - Final NO FUNGAL ELEMENTS SEEN. Resulted 09/13/17 13:46 Fluid Pleural Fluid Fungal Culture Pending Resulted 09/13/17 13:46 Fluid Pleural Fluid Acid Fast Stain - Final NO ACID FAST BACILLI SEEN Resulted 09/13/17 13:46 Fluid Pleural Fluid Mycobacterial Culture Pending Resulted 09/13/17 13:46 Fluid Pleural Fluid Gram Stain - Final Resulted 09/13/17 13:46 Fluid Pleural Fluid Body Fluid Culture - Preliminary NO GROWTH IN 48 HOURS. Resulted Imaging Last Im Last Impressions Chest X-Ray 09/15/17 0000 Signed Impressions: Service Date/Time: Friday, September 15, 2017 09:25 - CONCLUSION: Minimal increased parenchymal changes right lung Piyush Barrera MD FACR Physical Exam CONSTITUTIONAL/GENERAL: This is an adequately nourished patient, in moderate resp distress. TUBES/LINES/DRAINS: SKIN: No jaundice, rashes, or lesions. Skin temperature appropriate. Not diaphoretic. EYES: Pupils equal and round and reactive. Extraocular motions intact. No scleral icterus. No injection or drainage. Fundi not examined. ENT: moist mucosae CARDIOVASCULAR: Regular rate and rhythm without murmurs, gallops, or rubs. No JVD. Peripheral pulses symmetric. RESPIRATORY/CHEST: Symmetric, unlabored respirations.no accessory muscle use ,Clear to auscultation. Breath sounds diminished at bases bilaterally. CT b/l with serosangious d/c GASTROINTESTINAL: Abdomen soft, non-tender, moderately distended. No hepato- splenomegaly, or palpable masses. No guarding. Bowel sounds present. GENITOURINARY: Without palpable bladder distension. Beckman catheter in place with clear light yellow urine MUSCULOSKELETAL: Extremities without clubbing, cyanosis, 2+ pittingedema. L foot with dressing in place NEUROLOGICAL: awake, alert followsd commands PSYCHIATRIC: calm, cooperative Assessment & Plan Remarks DFI, L heel, Strep bovis Crystal tropicalis Osteomyelitis, L calcaneous, Strep bovis Previously reported bacteremia Strep bovis -AUSTEN neg for endocarditis HAP RLL - new - spuutum not available - negative leg/pneumoc/flu antigens Hypoxia- markedly improved after drainage of b/l pleural effusions Low grade coag neg staph bactermeia, doubt clin significance Large b/l pleural effusions - not favoriing parapneumonic effusions STAN - improving Severe leukocytosis cont cefepime, azithromycin dc zyvox (ASP: avoiding nephrotoxicity 2/2 acute renal insufficiency ) anticipate downgrading abx to previous Rx of CFTX if clx remain negative dw Renee Paul MD Sep 15, 2017 19:13
--- NOTE | 2017-09-15 21:59 | RADRPT ---
EXAM DATE/TIME: 09/15/2017 21:46 [facility] COMPARISON: No previous studies available for comparison. INDICATIONS : Evaluate for pneumothorax, post chest tube removal. MEDICAL HISTORY : Diabetes mellitus type II. Hypertension Chronic obstructive pulmonary disease. SURGICAL HISTORY : None. ENCOUNTER: Initial ACUITY: 1 day PAIN SCORE: 0/10 LOCATION: Bilateral chest FINDINGS: A single view of the chest demonstrates diffuse patchy airspace disease right worse than left. There has been the interval placement of a right-sided PICC line in good position. The cardiomediastinal c ontours are unremarkable. Osseous structures are intact. CONCLUSION: Stable diffuse infiltrates. PICC line in good position. Eliezer Feldman MD on September 15, 2017 at 21:57 Board Certified Radiologist. This report was verified electronically.
[2017-09-15] MEDS: CHLORHEXIDINE GLUCONATE 2 % 1 PACK (2 CLOTHS)(taper/protocol) TOPICAL SCH (22:15)
[2017-09-16] VITALS (15 sets, daily range): BP systolic 121–164; BP diastolic 64–77; PULSE 81–101; RESP 13–39; TEMP 98.1–98.9; O2SAT 89–100
[2017-09-16] MEDS: ALBUMIN 25% INJ 100 ML IV SCH (04:27)
[2017-09-16] MEDS: methylPREDNISolone SOD SUCC 40 MG/1 ML VIAL IV PUSH SCH ×3 (04:28→19:08)
[2017-09-16] MEDS: HEPARIN SODIUM - SQ 10,000 UNITS/ML VIAL SQ SCH ×3 (04:28→22:04)
[2017-09-16] MEDS: hydrALAZINE HCL 25 MG TAB PO SCH ×3 (04:28→22:03)
[2017-09-16] MEDS: RESP: ALBUTEROL 2.5 MG/3 ML NEB (PRN) NEB (06:11)
[2017-09-16 07:15] LABS: AUTOMATED NEUTROPHIL # 17.9 TH/MM3 (1.8-7.7); HEMATOCRIT 26.9 % (39.0-51.0); HEMO FLAGS DIFF FINAL; LYMPH % 6.2 % (9.0-44.0); LYMPHOCYTE # 1.2 TH/MM3 (1.0-4.8); MEAN CELL VOLUME 77.3 FL (80.0-100.0); MEAN CORPUSCULAR HGB CONC 32.3 % (32.0-36.0); MONO % 2.7 % (0.0-8.0); NEUT % 91.1 % (16.0-70.0); PLATELET COUNT 490 TH/MM3 (150-450); RED BLOOD COUNT 3.47 MIL/MM3 (4.50-5.90); RED CELL DISTRIBUTION WIDTH 21.3 % (11.6-17.2); WHITE BLOOD COUNT 19.6 TH/MM3 (4.0-11.0)
[2017-09-16] MEDS: INSULIN ASPART SUPPLEMENTAL SCALE SQ SCH ×4 (08:00→22:19)
[2017-09-16 08:02] LABS: ALKALINE PHOSPHATASE 108 U/L (45-117); ALT (GPT) 71 U/L (12-78); ANION GAP 10 MEQ/L (5-15); AST (GOT) 19 U/L (15-37); BICARBONATE 24.3 MEQ/L (21.0-32.0); BLOOD UREA NITROGEN 62 MG/DL (7-18); CHLORIDE 102 MEQ/L (98-107); GLOMERULAR FILTRATION RATE 55 ML/MIN (>89); POTASSIUM 4.4 MEQ/L (3.5-5.1); SODIUM (NA) 136 MEQ/L (136-145); TOTAL BILIRUBIN ADULT 0.4 MG/DL (0.2-1.0)
[2017-09-16] MEDS: MULTIVITAMINS/MINERALS THERAPEUTIC TAB PO SCH (08:37)
[2017-09-16] MEDS: DOCUSATE SODIUM 50 MG/SENNA 8.6 MG TAB PO SCH ×2 (08:38→22:03)
[2017-09-16] MEDS: ASPIRIN 81 MG CHEW TAB PO SCH (08:38)
[2017-09-16] MEDS: ASCORBIC ACID 500 MG TAB PO SCH (08:38)
[2017-09-16] MEDS: FLUCONAZOLE 200 MG TAB PO SCH (08:38)
[2017-09-16] MEDS: PANTOPRAZOLE SOD 40 MG DELAYED RELEASE TAB PO SCH (08:38)
[2017-09-16] MEDS: GABAPENTIN 300 MG CAP PO SCH ×4 (08:38→22:03)
[2017-09-16] MEDS: amLODIPine BESYLATE 5 MG TAB PO SCH ×2 (08:38→22:02)
[2017-09-16] MEDS: FINASTERIDE 5 MG TAB PO SCH (08:38)
[2017-09-16] MEDS: ATORVASTATIN 40 MG TAB PO SCH (08:38)
[2017-09-16] MEDS: MUPIROCIN 2% OINT 1 APPLIC/GM SYR EACH NARE SCH ×2 (08:39→22:19)
[2017-09-16] MEDS: BUMETANIDE INJ 1 MG/4 ML VIAL IV PUSH SCH ×2 (08:39→16:18)
[2017-09-16] MEDS: MORPHINE SULFATE 4 MG/ML INJ IV PUSH PRN ×3 (08:41→22:05)
[2017-09-16] MEDS: SODIUM CHLORIDE 0.9% FLUSH 10 ML FLUSH IV FLUSH SCH ×2 (08:41→22:04)
[2017-09-16] MEDS: INSULIN DETEMIR 100 UNITS/ML VIAL SQ SCH ×2 (08:41→22:19)
--- NOTE | 2017-09-16 09:42 | RADRPT ---
EXAM DATE/TIME: 09/16/2017 09:20 [facility] COMPARISON: CHEST SINGLE AP, September 15, 2017, 21:46. INDICATIONS : Shortness of breath. MEDICAL HISTORY : Diabetes mellitus type II. Hypertension Chronic obstructive pulmonary SURGICAL HISTORY : Debridement of bilateral feet. ENCOUNTER: Subsequent ACUITY: 1 week PAIN SCORE: 0/10 LOCATION: Bilateral chest FINDINGS: There is a stable right-sided PICC line in place. Redemonstration of diffuse bilateral patchy airspac e disease, improved in the right lower lung zone. Cardiomediastinal contours are stable. Remainder of exam is unchanged. CONCLUSION: 1. Redemonstration of diffuse patchy airspace disease, improved in the right lower lung zone. Eder Biggs MD on September 16, 2017 at 9:39 Board Certified Radiologist. This report was verified electronically.
[2017-09-16] MEDS: RESP: ALBUTEROL 2.5 MG/IPRATROPIUM 0.5 MG NEB (SCH) NEB ×3 (10:14→20:19)
[2017-09-16 10:51] LABS: AUTOMATED NEUTROPHIL # 21.1 TH/MM3 (1.8-7.7); BASOPHIL % 0.2 % (0.0-2.0); HEMATOCRIT 28.4 % (39.0-51.0); HEMO FLAGS DIFF FINAL; LYMPH % 5.1 % (9.0-44.0); LYMPHOCYTE # 1.2 TH/MM3 (1.0-4.8); MEAN CELL VOLUME 77.6 FL (80.0-100.0); MEAN CORPUSCULAR HEMOGLOBIN 24.3 PG (27.0-34.0); MEAN CORPUSCULAR HGB CONC 31.3 % (32.0-36.0); MONO % 3.8 % (0.0-8.0); NEUT % 90.9 % (16.0-70.0); PLATELET COUNT 537 TH/MM3 (150-450); RED BLOOD COUNT 3.66 MIL/MM3 (4.50-5.90); RED CELL DISTRIBUTION WIDTH 21.3 % (11.6-17.2); WHITE BLOOD COUNT 23.2 TH/MM3 (4.0-11.0)
[2017-09-16 11:07] LABS: ANION GAP 11 MEQ/L (5-15); AST (GOT) 19 U/L (15-37); BICARBONATE 24.5 MEQ/L (21.0-32.0); BLOOD UREA NITROGEN 64 MG/DL (7-18); CHLORIDE 100 MEQ/L (98-107); GLOMERULAR FILTRATION RATE 53 ML/MIN (>89); POTASSIUM 4.6 MEQ/L (3.5-5.1); SODIUM (NA) 135 MEQ/L (136-145)
[2017-09-16 11:09] LABS: ALT (GPT) 69 U/L (12-78)
[2017-09-16 11:10] LABS: ALKALINE PHOSPHATASE 109 U/L (45-117); TOTAL BILIRUBIN ADULT 0.4 MG/DL (0.2-1.0)
--- NOTE | 2017-09-16 12:07 | RADRPT ---
EXAM DATE/TIME: 09/16/2017 11:49 [facility] COMPARISON: CHEST SINGLE AP, September 16, 2017, 9:20. INDICATIONS : Post right chest tube removal. MEDICAL HISTORY : Diabetes mellitus type II. Hypertension Chronic obstructive pulmonary SURGICAL HISTORY : Debridement of bilateral feet. ENCOUNTER: Subsequent ACUITY: 1 week PAIN SCORE: 0/10 LOCATION: Bilateral chest FINDINGS: Diffuse bilateral patchy airspace disease persists and is not significantly changed. Small bilateral pleural effusions are present. No pneumothorax demonstrated. Heart size stable, within normal limits. Right arm PICC again noted with tip in the superior vena cava. The right-sided chest tube which had i ts tip within the chest wall has been completely removed. CONCLUSION: 1. Right chest tube out. No pneumothorax. 2. Patchy diffuse bilateral airspace disease without significant change. Jose Francisco Rodriguez MD on September 16, 2017 at 12:02 Board Certified Radiologist. This report was verified electronically.
[2017-09-16] MEDS: CEFEPIME INJ 2,000 MG in SODIUM CHLORIDE 0.9% INJ 100 ML IV SCH (12:20)
[2017-09-16] MEDS ORDERED: BUMETANIDE INJ 1 MG/4 ML VIAL IV PUSH ONE (14:45)
--- NOTE | 2017-09-16 15:52 | HHI.PR ---
Subjective Remarks CHEST TUBES ACCIDENTALY REMOVED NO SOB Objective Vital Signs Date Time Temp Pulse Resp B/P (MAP) Pulse Ox O2 Delivery O2 Flow Rate FiO2 09/16/17 14:00 99 09/16/17 12:46 18 09/16/17 12:00 96 09/16/17 12:00 98.5 96 23 138/66 (90) 99 09/16/17 10:00 93 09/16/17 09:00 100 Non-Rebreather 15.00 09/16/17 08:00 91 09/16/17 08:00 98.1 91 23 164/77 (106) 99 09/16/17 07:00 Bi-Pap 15.00 65 09/16/17 06:00 88 09/16/17 04:00 81 09/16/17 04:00 98.5 81 20 141/67 (91) 93 09/16/17 03:48 95 65 09/16/17 02:00 81 09/16/17 00:00 83 09/16/17 00:00 98.3 83 13 132/68 (89) 93 09/16/17 00:00 95 65 09/15/17 22:00 91 09/15/17 20:27 95 Non-Rebreather 15.00 09/15/17 20:00 98.3 91 20 162/87 (112) 93 09/15/17 20:00 91 09/15/17 19:28 98.4 86 14 152/86 (108) 100 09/15/17 19:00 Bi-Pap 65 09/15/17 18:00 92 09/15/17 17:35 18 09/15/17 16:00 92 I/O 09/15/17 09/15/17 09/15/17 09/16/17 09/16/17 09/16/17 07:00 15:00 23:00 07:00 15:00 23:00 Intake Total 400 ml 1370 ml 900 ml Output Total 1370 ml 2350 ml 1700 ml Balance -970 ml -980 ml -800 ml Intake Oral 720 ml 700 ml IV Total 400 ml 650 ml 200 ml Output Urine Total 1200 ml 2000 ml 1600 ml Chest Tube Drainage Total 170 ml 350 ml 100 ml Result Diagram: 09/16/17 1035 09/16/17 1035 Objective Remarks GENERAL: SKIN: Warm and dry. HEAD: Atraumatic. Normocephalic. EYES: Pupils equal and round. No scleral icterus. No injection or drainage. ENT: No nasal bleeding or discharge. Mucous membranes pink and moist. NECK: Trachea midline. No JVD. CARDIOVASCULAR: Regular rate and rhythm. RESPIRATORY: No accessory muscle use. Clear to auscultation. Breath sounds equal bilaterally. GASTROINTESTINAL: Abdomen soft, non-tender, nondistended. Hepatic and splenic margins not palpable. MUSCULOSKELETAL: Extremities without clubbing, cyanosis, or edema. No obvious deformities. NEUROLOGICAL: Awake and alert. No obvious cranial nerve deficits. Motor grossly within normal limits. Five out of 5 muscle strength in the arms and legs. Normal speech. PSYCHIATRIC: Appropriate mood and affect; insight and judgment normal. Assessment and Plan Assessment and Plan PLEURAL EFFUIONS CHF COPD PLAN O2 NEEDED BRONCHODILATOR THERAPY F/U CXRAY Discharge Planning Laboratory Tests Test 09/14/17 05:15 09/15/17 13:53 09/16/17 05:00 09/16/17 10:35 White Blood Count 20.2 TH/MM3 (4.0-11.0) 22.9 TH/MM3 (4.0-11.0) 19.6 TH/MM3 (4.0-11.0) 23.2 TH/MM3 (4.0-11.0) Red Blood Count 3.50 MIL/MM3 (4.50-5.90) 3.57 MIL/MM3 (4.50-5.90) 3.47 MIL/MM3 (4.50-5.90) 3.66 MIL/MM3 (4.50-5.90) Hemoglobin 8.5 GM/DL (13.0-17.0) 8.7 GM/DL (13.0-17.0) 8.7 GM/DL (13.0-17.0) 8.9 GM/DL (13.0-17.0) Hematocrit 27.1 % (39.0-51.0) 27.5 % (39.0-51.0) 26.9 % (39.0-51.0) 28.4 % (39.0-51.0) Mean Corpuscular Volume 77.2 FL (80.0-100.0) 76.9 FL (80.0-100.0) 77.3 FL (80.0-100.0) 77.6 FL (80.0-100.0) Mean Corpuscular Hemoglobin 24.2 PG (27.0-34.0) 24.4 PG (27.0-34.0) 25.0 PG (27.0-34.0) 24.3 PG (27.0-34.0) Mean Corpuscular Hemoglobin Concent 31.3 % (32.0-36.0) 31.8 % (32.0-36.0) 31.3 % (32.0-36.0) Red Cell Distribution Width 21.4 % (11.6-17.2) 21.8 % (11.6-17.2) 21.3 % (11.6-17.2) 21.3 % (11.6-17.2) Platelet Count 572 TH/MM3 (150-450) 528 TH/MM3 (150-450) 490 TH/MM3 (150-450) 537 TH/MM3 (150-450) Neutrophils (%) (Auto) 89.5 % (16.0-70.0) 88.3 % (16.0-70.0) 91.1 % (16.0-70.0) 90.9 % (16.0-70.0) Lymphocytes (%) (Auto) 5.8 % (9.0-44.0) 5.4 % (9.0-44.0) 6.2 % (9.0-44.0) 5.1 % (9.0-44.0) Neutrophils # (Auto) 18.1 TH/MM3 (1.8-7.7) 20.3 TH/MM3 (1.8-7.7) 17.9 TH/MM3 (1.8-7.7) 21.1 TH/MM3 (1.8-7.7) Blood Urea Nitrogen 54 MG/DL (7-18) 61 MG/DL (7-18) 62 MG/DL (7-18) 64 MG/DL (7-18) Creatinine 1.32 MG/DL (0.60-1.30) 1.44 MG/DL (0.60-1.30) 1.35 MG/DL (0.60-1.30) 1.40 MG/DL (0.60-1.30) Random Glucose 252 MG/DL (74-106) 245 MG/DL (74-106) 114 MG/DL (74-106) 152 MG/DL (74-106) Calcium Level 7.9 MG/DL (8.5-10.1) 8.1 MG/DL (8.5-10.1) 8.3 MG/DL (8.5-10.1) Magnesium Level 2.7 MG/DL (1.5-2.5) 2.7 MG/DL (1.5-2.5) Estimat Glomerular Filtration Rate 57 ML/MIN (>89) 51 ML/MIN (>89) 55 ML/MIN (>89) 53 ML/MIN (>89) Monocytes # (Auto) 1.4 TH/MM3 (0-0.9) Total Protein 6.2 GM/DL (6.4-8.2) Albumin 2.8 GM/DL (3.4-5.0) 3.3 GM/DL (3.4-5.0) 3.2 GM/DL (3.4-5.0) Alkaline Phosphatase 124 U/L (45-117) Alanine Aminotransferase (ALT/SGPT) 80 U/L (12-78) Sodium Level 135 MEQ/L (136-145) Manoj Aranda MD Sep 16, 2017 15:52
[2017-09-16] MEDS: AZITHROMYCIN INJ 500 MG in SODIUM CHLOR 0.9% 250 ML INJ 250 ML IV SCH (16:00)
--- NOTE | 2017-09-16 16:13 | HHI.PR ---
Subjective Remarks Patient is still short of breath denies cp afebrile on non rebreather mask - sating 99% BL pigtail catheters came out accidentally Objective Vitals Vital Signs Date Time Temp Pulse Resp B/P (MAP) Pulse Ox O2 Delivery O2 Flow Rate FiO2 09/16/17 14:00 99 09/16/17 12:46 18 09/16/17 12:00 96 09/16/17 12:00 98.5 96 23 138/66 (90) 99 09/16/17 10:00 93 09/16/17 09:00 100 Non-Rebreather 15.00 09/16/17 08:00 91 09/16/17 08:00 98.1 91 23 164/77 (106) 99 09/16/17 07:00 Bi-Pap 15.00 65 09/16/17 06:00 88 09/16/17 04:00 81 09/16/17 04:00 98.5 81 20 141/67 (91) 93 09/16/17 03:48 95 65 09/16/17 02:00 81 09/16/17 00:00 83 09/16/17 00:00 98.3 83 13 132/68 (89) 93 09/16/17 00:00 95 65 09/15/17 22:00 91 09/15/17 20:27 95 Non-Rebreather 15.00 09/15/17 20:00 98.3 91 20 162/87 (112) 93 09/15/17 20:00 91 09/15/17 19:28 98.4 86 14 152/86 (108) 100 09/15/17 19:00 Bi-Pap 65 09/15/17 18:00 92 09/15/17 17:35 18 I/O 09/15/17 09/15/17 09/15/17 09/16/17 09/16/17 09/16/17 07:00 15:00 23:00 07:00 15:00 23:00 Intake Total 400 ml 1370 ml 900 ml Output Total 1370 ml 2350 ml 1700 ml Balance -970 ml -980 ml -800 ml Intake Oral 720 ml 700 ml IV Total 400 ml 650 ml 200 ml Output Urine Total 1200 ml 2000 ml 1600 ml Chest Tube Drainage Total 170 ml 350 ml 100 ml Result Diagram: 09/16/17 1035 09/16/17 1035 Objective Remarks GENERAL: This is a well-nourished, well-developed critically ill patient, on NRB mask - mod distress SKIN: No rashes, ecchymoses or lesions. Very pale. CARDIOVASCULAR: Regular rate and rhythm with a systolic murmur, no rubs or gallops RESPIRATORY: Decreased breath sounds bilaterally, however no wheezing or rhonchi auscultated GASTROINTESTINAL: Abdomen soft, non-tender, nondistended. No guarding. MUSCULOSKELETAL: Extremities without clubbing, cyanosis, but with bilateral lower extremity pitting edema. Left heel with wound vac NEUROLOGICAL: Alert and oriented Cranial nerves II through XII intact. Motor and sensory grossly within normal limits. Five out of 5 muscle strength in all muscle groups. Normal speech. Procedures BL pigatil catheter chest placement on 09/14 Medications and IVs Current Medications Medications (Trade) Dose Ordered Sig/Sumanth Route Start Time Stop Time Status Last Admin Azithromycin 500 mg/Sodium Chloride 250 ml @ 250 mls/hr Q24H IV 09/11/17 16:00 09/15/17 16:00 (Norvasc) 5 mg BID PO 09/10/17 21:00 09/16/17 08:38 (Vitamin C) 500 mg DAILY PO 09/11/17 09:00 09/16/17 08:38 (Aspirin Chew) 81 mg DAILY PO 09/11/17 09:00 09/16/17 08:38 (Lipitor) 40 mg DAILY PO 09/11/17 09:00 09/16/17 08:38 (Proscar) 5 mg DAILY PO 09/11/17 09:00 09/16/17 08:38 (Diflucan) 200 mg DAILY PO 09/11/17 09:00 09/16/17 08:38 (Neurontin) 600 mg QID PO 09/10/17 18:00 09/16/17 12:20 (Apresoline) 25 mg Q8HR PO 09/10/17 22:00 09/16/17 13:25 (Theragran M Tab) 1 tab DAILY PO 09/11/17 09:00 09/16/17 08:37 (Nicotine Gum) 4 mg Q2H PRN CHEW 09/10/17 16:15 (Vasotec Inj) 1.25 mg Q6H PRN IV PUSH 09/10/17 16:30 (Apresoline Inj) 10 mg Q6H PRN IV PUSH 09/10/17 16:30 (Catapres) 0.1 mg Q6H PRN PO 09/10/17 16:30 (Albuterol Neb) 2.5 mg Q2HR NEB PRN NEB 09/10/17 16:30 09/16/17 06:11 (NS Flush) 2 ml UNSCH PRN IV FLUSH 09/10/17 16:30 09/11/17 09:47 (NS Flush) 2 ml BID IV FLUSH 09/10/17 21:00 09/16/17 08:41 (Tylenol) 650 mg Q4H PRN PO 09/10/17 16:30 (Zofran Inj) 4 mg Q6H PRN IVP 09/10/17 16:30 (Tylenol) 650 mg Q6H PRN PO 09/10/17 16:30 ([place] 5-325 Mg) 1 tab Q4H PRN PO 09/10/17 16:30 (Morphine Inj) 1 mg Q3H PRN IV PUSH 09/10/17 16:30 09/16/17 12:41 (Narcan Inj) 0.4 mg UNSCH PRN IV PUSH 09/10/17 16:30 (Alanna-Colace) 1 tab BID PO 09/10/17 21:00 09/16/17 08:38 (Senokot) 17.2 mg Q12H PRN PO 09/10/17 16:30 (Dulcolax Supp) 10 mg DAILY PRN RECTAL 09/10/17 16:30 (Lactulose Liq) 30 ml DAILY PRN PO 09/10/17 16:30 (Heparin Inj) 5,000 units Q8HR SQ 09/10/17 22:00 09/16/17 13:25 ([place] 10-325 Mg) 1 tab Q4H PRN PO 09/10/17 17:00 09/15/17 23:14 (Protonix) 40 mg DAILY PO 09/11/17 21:00 09/16/17 08:38 (SoluMEDROL INJ) 40 mg Q6HR IV PUSH 09/11/17 12:00 09/16/17 12:19 (Levemir Inj) 40 units BID SQ 09/11/17 21:00 09/16/17 08:41 (Ativan Inj) 1 mg Q6H PRN IV PUSH 09/11/17 14:00 09/13/17 17:39 Miscellaneous Information Patient in critical care unit? Ass... Q361D .XX 09/11/17 19:00 (Chlorhexidine 2% Cloth) 3 pack UNSCH PRN TOPICAL 09/11/17 19:00 09/16/17 18:49 Cefepime HCl 2000 mg/Sodium Chloride 100 ml @ 200 mls/hr Q12H IV 09/12/17 12:00 09/16/17 12:20 (Bactroban Nasal 2% Oint) 1 applic BID EACH NARE 09/13/17 10:30 09/20/17 10:29 09/16/17 08:39 (Tums Chew) 500 mg Q6H PRN CHEW 09/13/17 10:30 (Bumex Inj) 1 mg Q8H IV PUSH 09/15/17 17:00 09/16/17 08:39 (D50w (Vial) Inj) 50 ml UNSCH PRN IV PUSH 09/15/17 14:45 (Glucagon Inj) 1 mg UNSCH PRN OTHER 09/15/17 14:45 (NovoLOG SUPPLEMENTAL SCALE) 1 ACHS SLIDING SCALE SQ 09/15/17 17:00 09/16/17 12:00 (Duoneb Neb) 1 ampule Q6HR NEB NEB 09/16/17 10:00 09/16/17 14:50 A/P Problem List: (1) Sepsis ICD Code: A41.9 - Sepsis, unspecified organism Status: Acute (2) Hospital-acquired pneumonia ICD Code: J18.9 - Pneumonia, unspecified organism Status: Acute (3) Diabetes mellitus with hyperglycemia ICD Code: E11.65 - Type 2 diabetes mellitus with hyperglycemia (4) STAN (acute kidney injury) ICD Code: N17.9 - Acute kidney failure, unspecified (5) COPD exacerbation ICD Code: J44.1 - Chronic obstructive pulmonary disease with (acute) exacerbation (6) HTN (hypertension) ICD Code: I10 - Essential (primary) hypertension Status: Chronic (7) Severe mitral regurgitation ICD Code: I34.0 - Nonrheumatic mitral (valve) insufficiency Status: Acute Assessment and Plan This is a 52-year-old male with a history of COPD, diabetes mellitus, chronic pain, arthritis, CVA, hyperlipidemia, GERD, hypertension and neuropathy. He presents to the emergency department complaining of shortness of breath for the past 2 days associated with nonproductive cough and chills. Chest x-ray shows consolidation in the right lung base and has been started Zithromax and Zosyn. 1. Acute hypoxemic respiratory failure. Failure likely a combination of pneumonia, COPD exacerbation and possibly some degree of congestive heart failure. Patient status post bilateral pigtail catheter placement on 09/14 for drainage of pleural effusions. This was discussed with Dr. Felton from intensive care medicine. Echocardiogram performed on 08/11/17 showed a normal ejection fraction the range of 55-60%.AUSTEN showed severe mitral valve regurgitation, however Dr. Fine from cardiology determined that the patient was not a candidate for possible surgical intervention at that time. Patient still requiring BiPAP. Chest x-ray obtained today (09/15) shows minimal increased parenchymal changes in the right lung. Continue IV antibiotics as per ID recommendations. The patient currently on cefepime IV, azithromycin IV and Linezolid. Continue Bi pap and taper oxygen as tolerated. Continue Bumex but increase dose to 1 mg IV every 8 hours. 09/16 Consult cardiology, check cardiac enzymes. Case discussed with Dr Felton from intensive care medicine. The patient will likely need a mitrat valve replacement given degree of refractory heart failure. 2. Sepsis secondary to hospital acquired pneumonia. Lactic acid 1.3. Follow-up blood cultures with staph epi in 1 out of 4 bottles. Negative urinary Legionella and pneumococcal antigen. Still meets criteria for sepsis \leukocytosis, tachycardia. Continue antibiotics as per ID recommendations. Continue to provide supplemental oxygen and BiPAP as needed to keep oxygen saturation more than 92%. 3. Left heel ulcer stage II. Patient status post left partial calcanectomy and Achilles department. Podiatry has been consulted. The patient's left heel had been treated for osteomyelitis with IM Rocephin and Diflucan. Podiatry consulted. The patient was seen by Dr. Ysabel Echols. Recommended continuation of wound VAC for increased granulation tissue. (M/W/F). Continue offloading of this I with pillow boots. 4. Diabetes mellitus with hyperglycemia. Blood sugars are very elevated and uncontrolled. The patient insulin sliding scale was rated to a medium dose and the patient was started on prandial insulin. 09/14 blood sugar still uncontrolled in the 200s. Continue Levemir at 4 units subcutaneous twice a day. I will increase the dose of insulin NovoLog medium and start the patient on prandial insulin. 09/16 Blood sugars stable. Continue management as above. 5. Uncontrolled Hypertension. 09/14 BP stable. Continue amlodipine 5 Mg by mouth twice a day with clonidine as needed. 09/15 BP elevated into the 160s. This likely secondary to steroid use. I will increase amlodipine 5 mg to 10 mg by mouth daily. 09/16 BP with improved control. Continue amlodipine 10 mg po daily. 6. Acute kidney injury. Nonoliguric. Improving continue IV hydration and avoid nephrotoxins. Repeat BMP and magnesium in the morning. Urinalysis with protein. Consider David FEN. IVF and TF DVT prophylaxis with subcutaneous heparin Discharge Planning Patient with acute hypoxemic respiratory failure, currently on BiPAP. Continue to monitor in intensive care unit. Problem Qualifiers (1) Sepsis: Qualified Codes: A41.9 - Sepsis, unspecified organism Boo Zamudio MD Sep 16, 2017 16:13
[2017-09-16] MEDS: ACETAMINOPHEN/HYDROcodone 325 MG/10 MG TAB PO PRN (22:03)
[2017-09-17] VITALS (15 sets, daily range): BP systolic 142–168; BP diastolic 65–84; PULSE 79–97; RESP 13–28; TEMP 98.3–98.7; O2SAT 94–100
[2017-09-17] MEDS: methylPREDNISolone SOD SUCC 40 MG/1 ML VIAL IV PUSH SCH ×4 (00:06→18:17)
[2017-09-17] MEDS: MORPHINE SULFATE 4 MG/ML INJ IV PUSH PRN ×5 (01:00→21:37)
[2017-09-17] MEDS: BUMETANIDE INJ 1 MG/4 ML VIAL IV PUSH SCH ×3 (01:00→15:58)
[2017-09-17] MEDS: RESP: ALBUTEROL 2.5 MG/IPRATROPIUM 0.5 MG NEB (SCH) NEB ×4 (04:24→21:31)
[2017-09-17] MEDS: HEPARIN SODIUM - SQ 10,000 UNITS/ML VIAL SQ SCH ×3 (06:42→21:08)
[2017-09-17] MEDS: hydrALAZINE HCL 25 MG TAB PO SCH ×3 (06:42→21:06)
[2017-09-17] MEDS: INSULIN ASPART SUPPLEMENTAL SCALE SQ SCH ×4 (08:00→21:38)
[2017-09-17] MEDS: RESP: ALBUTEROL 2.5 MG/3 ML NEB (PRN) NEB (08:18)
[2017-09-17] MEDS: MUPIROCIN 2% OINT 1 APPLIC/GM SYR EACH NARE SCH ×2 (08:43→21:09)
[2017-09-17] MEDS: SODIUM CHLORIDE 0.9% FLUSH 10 ML FLUSH IV FLUSH SCH ×2 (08:43→21:09)
[2017-09-17] MEDS: FLUCONAZOLE 200 MG TAB PO SCH (08:44)
[2017-09-17] MEDS: ASPIRIN 81 MG CHEW TAB PO SCH (08:44)
[2017-09-17] MEDS: MULTIVITAMINS/MINERALS THERAPEUTIC TAB PO SCH (08:45)
[2017-09-17] MEDS: FINASTERIDE 5 MG TAB PO SCH (08:45)
[2017-09-17] MEDS: PANTOPRAZOLE SOD 40 MG DELAYED RELEASE TAB PO SCH (08:45)
[2017-09-17] MEDS: ATORVASTATIN 40 MG TAB PO SCH (08:45)
[2017-09-17] MEDS: DOCUSATE SODIUM 50 MG/SENNA 8.6 MG TAB PO SCH ×2 (08:45→21:06)
[2017-09-17] MEDS: ASCORBIC ACID 500 MG TAB PO SCH (08:45)
[2017-09-17] MEDS: GABAPENTIN 300 MG CAP PO SCH ×4 (08:45→21:06)
[2017-09-17] MEDS: amLODIPine BESYLATE 5 MG TAB PO SCH ×2 (08:45→21:07)
[2017-09-17] MEDS: INSULIN DETEMIR 100 UNITS/ML VIAL SQ SCH ×2 (08:46→21:37)
[2017-09-17] MEDS: CEFEPIME INJ 2,000 MG in SODIUM CHLORIDE 0.9% INJ 100 ML IV SCH ×3 (11:49)
--- NOTE | 2017-09-17 12:52 | MB ---
cc: MARTY AGUIAR DO DATE OF CONSULTATION: 09/17/2017 REASON FOR CONSULTATION: Congestive heart failure with severe mitral regurgitation. HISTORY OF PRESENT ILLNESS Adilson Lehman is a pleasant 52-year-old male whom I see in the office who presented to [facility] on a September 10, 2017, due to shortness of breath. It was felt that he had pneumonia but he continues to have difficulty with breathing requiring high oxygenation. He has been placed on a non-rebreather at 15 liters and any time that it is off he starts to get more short of breath. He had bilateral pigtail chest catheters put out a significant amount of fluid and since admission he is down 6 kilograms. He continues to be short of breath and has been diuresed well being negative 1 to 6 liters every day for the past few days. The concern over all this is severe mitral regurgitation. In seeing him last time he was here with stroke among other things and a AUSTEN was done which showed severe mitral regurgitation due to poor leaflet coaptation and an ejection fraction of 50-55%. PAST MEDICAL HISTORY 1. History of CVA. 2. GERD. 3. Severe mitral regurgitation. 4. Hypertension 5. Diabetes mellitus 6. CAD. 7. COPD 8. History of left heel surgery. PAST SURGICAL HISTORY 1. Recanalization of left SFA with balloon angioplasty of the left SFA and above-knee popliteal artery as well as CSI atherectomy (August 08, 2017). 2. Dental extraction 3. Left lower extremity debridement. ALLERGIES NO KNOWN DRUG ALLERGIES. MEDICATIONS 1. Ceftriaxone 2 grams daily 2. Fluconazole 200 mg daily 3. Lipitor 40 mg daily 4. Hydralazine 25 mg every 8 hours. 5. Norvasc 5 mg b.i.d. 6. Aspirin 81 mg daily 7. Hydrocodone / acetaminophen 10/325 every 4 hours as needed for pain. 8. Gabapentin 600 mg q.i.d. 9. Protonix 40 mg daily 10. Levemir 30 units b.i.d. 11. Humalog sliding scale. 12. Finasteride 5 mg daily. FAMILY HISTORY Unsure of his previous history. SOCIAL HISTORY Does not drink or do drugs. He recently quit smoking. REVIEW OF SYSTEMS 14-systems were reviewed including osteopathic, pertinent positives and negatives above otherwise negative. PHYSICAL EXAMINATION Vital signs: Temperature 98.3, heart rate 80, blood pressure 167/65, respirations 25, pulse ox 100% on 15 liters non-rebreather. In general, the patient appears alert, awake and oriented x3. Extraocular muscles intact. Mucous membranes moist. Neck: Supple with mild JVD noted bilaterally. Carotid upstroke is brisk in nature. Heart: Regular rate and rhythm. Positive first and second heart sounds with a 2/6 holosystolic murmur noted at the apex. Lungs: Decreased breath sounds bilaterally with mild rales. Abdomen: Soft, nontender, nondistended. No organomegaly noted. Extremities: Show no clubbing, cyanosis or edema. Femoral and distal pulses intact bilaterally. Neurologically: No focal deficits. Skin: Warm, dry and intact. Osteopathic: No kyphoscoliosis, lordosis or paraspinal tender points. LABORATORY WORK: Hemoglobin 8.9, hematocrit 28.4, platelets 537. Potassium 4.6, BUN 64, creatinine 1.4. IMPRESSION 1. Acute hypoxemic respiratory failure. 2. Severe mitral regurgitation with an ejection fraction of 50-55% by AUSTEN (August 14, 2017). 3. Diabetes mellitus 4. Hospital acquired pneumonia. 5. Acute kidney injury. 6. COPD 7. Peripheral artery disease. RECOMMENDATIONS Mr. Lehman appears to have acute respiratory failure on top of chronic respiratory failure due to his mitral valve disease. On AUSTEN, he was found to have severe mitral valve regurgitation and an ejection fraction of 50-55%. His only intervention at this time would most likely be a mitral valve repair versus replacement due to his refractory heart failure. It is difficult to determine at this time if he would be a candidate for this but to proceed we will need to do a cardiac catheterization to look at his coronary arteries preoperatively. I discussed this with him and we will plan on doing it sometime this week depending on his oxygen and whether can lay flat. I did lay him flat for about five minutes and he seemed to do well on the non-rebreather and so this may be considered for tomorrow. Further recommendations will be made after coronary visualization. Thank you for allowing me to see Adilson Lehman. If there are any questions please do not hesitate to call. Marty Aguiar DO P/DOMENICA /11:16 AM /1:41 PM
[2017-09-17] MEDS: AZITHROMYCIN INJ 500 MG in SODIUM CHLOR 0.9% 250 ML INJ 250 ML IV SCH (15:47)
--- NOTE | 2017-09-17 17:24 | HHI.PR ---
Subjective Remarks CHEST TUBES ACCIDENTALY REMOVED NO SOB Objective Vital Signs Date Time Temp Pulse Resp B/P (MAP) Pulse Ox O2 Delivery O2 Flow Rate FiO2 09/17/17 14:00 93 09/17/17 12:00 98.3 92 15 142/71 (94) 99 09/17/17 12:00 92 09/17/17 11:55 20 09/17/17 10:00 91 09/17/17 08:27 96 Non-Rebreather 15.00 09/17/17 08:12 96 65 09/17/17 08:00 98.3 82 13 166/81 (109) 100 09/17/17 08:00 82 09/17/17 07:00 Partial Non-Rebreather 15.00 65 09/17/17 06:00 86 09/17/17 04:25 97 65 09/17/17 04:00 79 09/17/17 04:00 98.3 79 28 167/65 (99) 100 09/17/17 02:00 86 09/17/17 02:00 16 09/17/17 00:00 98.7 90 20 151/84 (106) 98 09/17/17 00:00 90 09/16/17 23:05 18 09/16/17 22:00 91 09/16/17 20:19 96 Non-Rebreather 15.00 09/16/17 20:19 100 65 09/16/17 20:00 96 09/16/17 20:00 98.6 96 35 141/69 (93) 99 09/16/17 19:00 Partial Non-Rebreather 15.00 09/16/17 18:00 101 I/O 09/16/17 09/16/17 09/16/17 09/17/17 09/17/17 09/17/17 07:00 15:00 23:00 07:00 15:00 23:00 Intake Total 900 ml 100 ml 250 ml 960 ml Output Total 1700 ml 2175 ml 2400 ml Balance -800 ml 100 ml -1925 ml -1440 ml Intake Oral 700 ml 960 ml IV Total 200 ml 100 ml 250 ml Output Urine Total 1600 ml 2175 ml 2400 ml Chest Tube Drainage Total 100 ml Result Diagram: 09/16/17 1035 09/16/17 1035 Objective Remarks GENERAL: SKIN: Warm and dry. HEAD: Atraumatic. Normocephalic. EYES: Pupils equal and round. No scleral icterus. No injection or drainage. ENT: No nasal bleeding or discharge. Mucous membranes pink and moist. NECK: Trachea midline. No JVD. CARDIOVASCULAR: Regular rate and rhythm. RESPIRATORY: No accessory muscle use. Clear to auscultation. Breath sounds equal bilaterally. GASTROINTESTINAL: Abdomen soft, non-tender, nondistended. Hepatic and splenic margins not palpable. MUSCULOSKELETAL: Extremities without clubbing, cyanosis, or edema. No obvious deformities. NEUROLOGICAL: Awake and alert. No obvious cranial nerve deficits. Motor grossly within normal limits. Five out of 5 muscle strength in the arms and legs. Normal speech. PSYCHIATRIC: Appropriate mood and affect; insight and judgment normal. Assessment and Plan Assessment and Plan PLEURAL EFFUIONS CHF COPD PLAN O2 NEEDED BRONCHODILATOR THERAPY for cardiac cath Manoj Aranda MD Sep 17, 2017 17:24
--- NOTE | 2017-09-17 18:06 | HHI.IDPN ---
Subjective Subjective Remarks Remains on NRB no fever co SOB, but feels better Able to talk over the phone + cought with clear sputum Antibiotics azithro cefepime Allergies: Coded Allergies: *MDRO Multi-Drug Resistant Organism (Verified Adverse Reaction, Unknown, 09/10/17) MRSA (arm wound) - 01/2016 MRSA (blood, urine, wound) - 06/2013 Objective . Vital Signs Date Time Temp Pulse Resp B/P (MAP) Pulse Ox O2 Delivery O2 Flow Rate FiO2 09/17/17 14:00 93 09/17/17 12:00 98.3 92 15 142/71 (94) 99 09/17/17 12:00 92 09/17/17 11:55 20 09/17/17 10:00 91 09/17/17 08:27 96 Non-Rebreather 15.00 09/17/17 08:12 96 65 09/17/17 08:00 98.3 82 13 166/81 (109) 100 09/17/17 08:00 82 09/17/17 07:00 Partial Non-Rebreather 15.00 65 09/17/17 06:00 86 09/17/17 04:25 97 65 09/17/17 04:00 79 09/17/17 04:00 98.3 79 28 167/65 (99) 100 09/17/17 02:00 86 09/17/17 02:00 16 09/17/17 00:00 98.7 90 20 151/84 (106) 98 09/17/17 00:00 90 09/16/17 23:05 18 09/16/17 22:00 91 09/16/17 20:19 96 Non-Rebreather 15.00 09/16/17 20:19 100 65 09/16/17 20:00 96 09/16/17 20:00 98.6 96 35 141/69 (93) 99 09/16/17 19:00 Partial Non-Rebreather 15.00 . Laboratory Tests Test 09/16/17 05:00 09/16/17 10:35 White Blood Count 19.6 TH/MM3 23.2 TH/MM3 Red Blood Count 3.47 MIL/MM3 3.66 MIL/MM3 Hemoglobin 8.7 GM/DL 8.9 GM/DL Hematocrit 26.9 % 28.4 % Mean Corpuscular Volume 77.3 FL 77.6 FL Mean Corpuscular Hemoglobin 25.0 PG 24.3 PG Mean Corpuscular Hemoglobin Concent 32.3 % 31.3 % Red Cell Distribution Width 21.3 % 21.3 % Platelet Count 490 TH/MM3 537 TH/MM3 Mean Platelet Volume 8.4 FL 8.1 FL Neutrophils (%) (Auto) 91.1 % 90.9 % Lymphocytes (%) (Auto) 6.2 % 5.1 % Monocytes (%) (Auto) 2.7 % 3.8 % Eosinophils (%) (Auto) 0.0 % 0.0 % Basophils (%) (Auto) 0.0 % 0.2 % Neutrophils # (Auto) 17.9 TH/MM3 21.1 TH/MM3 Lymphocytes # (Auto) 1.2 TH/MM3 1.2 TH/MM3 Monocytes # (Auto) 0.5 TH/MM3 0.9 TH/MM3 Eosinophils # (Auto) 0.0 TH/MM3 0.0 TH/MM3 Basophils # (Auto) 0.0 TH/MM3 0.0 TH/MM3 CBC Comment DIFF FINAL DIFF FINAL Differential Comment Laboratory Tests Test 09/16/17 05:00 09/16/17 10:35 Blood Urea Nitrogen 62 MG/DL 64 MG/DL Creatinine 1.35 MG/DL 1.40 MG/DL Random Glucose 114 MG/DL 152 MG/DL Total Protein 6.4 GM/DL 6.4 GM/DL Albumin 3.3 GM/DL 3.2 GM/DL Calcium Level 8.5 MG/DL 8.3 MG/DL Alkaline Phosphatase 108 U/L 109 U/L Aspartate Amino Transf (AST/SGOT) 19 U/L 19 U/L Alanine Aminotransferase (ALT/SGPT) 71 U/L 69 U/L Total Bilirubin 0.4 MG/DL 0.4 MG/DL Sodium Level 136 MEQ/L 135 MEQ/L Potassium Level 4.4 MEQ/L 4.6 MEQ/L Chloride Level 102 MEQ/L 100 MEQ/L Carbon Dioxide Level 24.3 MEQ/L 24.5 MEQ/L Anion Gap 10 MEQ/L 11 MEQ/L Estimat Glomerular Filtration Rate 55 ML/MIN 53 ML/MIN Imaging Last Impressions Chest X-Ray 09/16/17 0000 Signed Impressions: Service Date/Time: Saturday, September 16, 2017 11:49 - CONCLUSION: 1. Right chest tube out. No pneumothorax. 2. Patchy diffuse bilateral airspace disease without significant change. Jose Francisco Rodriguez MD Physical Exam CONSTITUTIONAL/GENERAL: This is an adequately nourished patient, in moderate resp distress. TUBES/LINES/DRAINS: SKIN: No jaundice, rashes, or lesions. Skin temperature appropriate. Not diaphoretic. EYES: Pupils equal and round and reactive. Extraocular motions intact. No scleral icterus. No injection or drainage. Fundi not examined. ENT: moist mucosae CARDIOVASCULAR: Regular rate and rhythm + 2/6 systolicv murmur , gallops, or rubs. No JVD. Peripheral pulses symmetric. RESPIRATORY/CHEST: Symmetric, unlabored respirations.no accessory muscle use ,Clear to auscultation. Breath sounds diminished at bases bilaterally. GASTROINTESTINAL: Abdomen soft, non-tender, moderately distended. No hepato- splenomegaly, or palpable masses. No guarding. Bowel sounds present. GENITOURINARY: Without palpable bladder distension. Beckman catheter in place with clear light yellow urine MUSCULOSKELETAL: Extremities without clubbing, cyanosis, 2+ pittingedema. L foot with dressing in place NEUROLOGICAL: awake, alert followsd commands PSYCHIATRIC: calm, cooperative Assessment & Plan Remarks DFI, L heel, Strep bovis Crystal tropicalis Osteomyelitis, L calcaneous, Strep bovis Previously reported bacteremia Strep bovis -AUSTEN neg for endocarditis HAP RLL - new - spuutum not available - negative leg/pneumoc/flu antigens Hypoxia- markedly improved after drainage of b/l pleural effusions Low grade coag neg staph bactermeia, doubt clin significance Large b/l pleural effusions - 2/2 severe MR - sand temperer ff STAN - improving Severe leukocytosis: worse dc azithromycin dc cefepime, restart CFTX for Strep bovis bactermiac osteomyelitis dw Renee Alvarenga MD Sep 17, 2017 18:06
[2017-09-17] MEDS: cefTRIAXone INJ 2,000 MG in SODIUM CHLORIDE 0.9% INJ 100 ML IV SCH (18:27)
--- NOTE | 2017-09-17 18:43 | HHI.PR ---
Subjective Remarks patient states sob is still same denies fevers/chills Objective Vitals Vital Signs Date Time Temp Pulse Resp B/P (MAP) Pulse Ox O2 Delivery O2 Flow Rate FiO2 09/17/17 18:00 95 09/17/17 16:21 20 09/17/17 16:00 98.7 97 24 168/74 (105) 99 09/17/17 16:00 97 09/17/17 14:00 93 09/17/17 12:00 98.3 92 15 142/71 (94) 99 09/17/17 12:00 92 09/17/17 10:00 91 09/17/17 08:27 96 Non-Rebreather 15.00 09/17/17 08:12 96 65 09/17/17 08:00 98.3 82 13 166/81 (109) 100 09/17/17 08:00 82 09/17/17 07:00 Partial Non-Rebreather 15.00 65 09/17/17 06:00 86 09/17/17 04:25 97 65 09/17/17 04:00 79 09/17/17 04:00 98.3 79 28 167/65 (99) 100 09/17/17 02:00 86 09/17/17 02:00 16 09/17/17 00:00 98.7 90 20 151/84 (106) 98 09/17/17 00:00 90 09/16/17 23:05 18 09/16/17 22:00 91 09/16/17 20:19 96 Non-Rebreather 15.00 09/16/17 20:19 100 65 09/16/17 20:00 96 09/16/17 20:00 98.6 96 35 141/69 (93) 99 09/16/17 19:00 Partial Non-Rebreather 15.00 I/O 09/16/17 09/16/17 09/16/17 09/17/17 09/17/17 09/17/17 07:00 15:00 23:00 07:00 15:00 23:00 Intake Total 900 ml 100 ml 250 ml 960 ml Output Total 1700 ml 2175 ml 2400 ml Balance -800 ml 100 ml -1925 ml -1440 ml Intake Oral 700 ml 960 ml IV Total 200 ml 100 ml 250 ml Output Urine Total 1600 ml 2175 ml 2400 ml Chest Tube Drainage Total 100 ml Result Diagram: 09/16/17 1035 09/16/17 1035 Imaging Last Impressions Chest X-Ray 09/16/17 0000 Signed Impressions: Service Date/Time: Saturday, September 16, 2017 11:49 - CONCLUSION: 1. Right chest tube out. No pneumothorax. 2. Patchy diffuse bilateral airspace disease without significant change. Jose Francisco Rodriguez MD Objective Remarks GENERAL: This is a well-nourished, well-developed critically ill patient, on NRB mask - mod distress SKIN: No rashes, ecchymoses or lesions. Very pale. CARDIOVASCULAR: Regular rate and rhythm with a systolic murmur, no rubs or gallops RESPIRATORY: Decreased breath sounds bilaterally, however no wheezing or rhonchi auscultated GASTROINTESTINAL: Abdomen soft, non-tender, nondistended. No guarding. MUSCULOSKELETAL: Extremities without clubbing, cyanosis, but with bilateral lower extremity pitting edema. Left heel with wound vac NEUROLOGICAL: Alert and oriented Cranial nerves II through XII intact. Motor and sensory grossly within normal limits. Five out of 5 muscle strength in all muscle groups. Normal speech. Procedures BL pigatil catheter chest placement on 09/14 Medications and IVs Current Medications Medications (Trade) Dose Ordered Sig/Sumanth Route Start Time Stop Time Status Last Admin (Norvasc) 5 mg BID PO 09/10/17 21:00 09/17/17 08:45 (Vitamin C) 500 mg DAILY PO 09/11/17 09:00 09/17/17 08:45 (Aspirin Chew) 81 mg DAILY PO 09/11/17 09:00 09/17/17 08:44 (Lipitor) 40 mg DAILY PO 09/11/17 09:00 09/17/17 08:45 (Proscar) 5 mg DAILY PO 09/11/17 09:00 09/17/17 08:45 (Diflucan) 200 mg DAILY PO 09/11/17 09:00 09/17/17 08:44 (Neurontin) 600 mg QID PO 09/10/17 18:00 09/17/17 18:17 (Apresoline) 25 mg Q8HR PO 09/10/17 22:00 09/17/17 13:57 (Theragran M Tab) 1 tab DAILY PO 09/11/17 09:00 09/17/17 08:45 (Nicotine Gum) 4 mg Q2H PRN CHEW 09/10/17 16:15 (Vasotec Inj) 1.25 mg Q6H PRN IV PUSH 09/10/17 16:30 (Apresoline Inj) 10 mg Q6H PRN IV PUSH 09/10/17 16:30 (Catapres) 0.1 mg Q6H PRN PO 09/10/17 16:30 (Albuterol Neb) 2.5 mg Q2HR NEB PRN NEB 09/10/17 16:30 09/17/17 08:18 (NS Flush) 2 ml UNSCH PRN IV FLUSH 09/10/17 16:30 09/11/17 09:47 (NS Flush) 2 ml BID IV FLUSH 09/10/17 21:00 09/17/17 08:43 (Tylenol) 650 mg Q4H PRN PO 09/10/17 16:30 (Zofran Inj) 4 mg Q6H PRN IVP 09/10/17 16:30 (Tylenol) 650 mg Q6H PRN PO 09/10/17 16:30 ([place] 5-325 Mg) 1 tab Q4H PRN PO 09/10/17 16:30 09/17/17 01:00 (Morphine Inj) 1 mg Q3H PRN IV PUSH 09/10/17 16:30 09/17/17 16:16 (Narcan Inj) 0.4 mg UNSCH PRN IV PUSH 09/10/17 16:30 (Alanna-Colace) 1 tab BID PO 09/10/17 21:00 09/17/17 08:45 (Senokot) 17.2 mg Q12H PRN PO 09/10/17 16:30 (Dulcolax Supp) 10 mg DAILY PRN RECTAL 09/10/17 16:30 (Lactulose Liq) 30 ml DAILY PRN PO 09/10/17 16:30 (Heparin Inj) 5,000 units Q8HR SQ 09/10/17 22:00 09/17/17 13:57 ([place] 10-325 Mg) 1 tab Q4H PRN PO 09/10/17 17:00 09/16/17 22:03 (Protonix) 40 mg DAILY PO 09/11/17 21:00 09/17/17 08:45 (SoluMEDROL INJ) 40 mg Q6HR IV PUSH 09/11/17 12:00 09/17/17 18:17 (Levemir Inj) 40 units BID SQ 09/11/17 21:00 09/17/17 08:46 (Ativan Inj) 1 mg Q6H PRN IV PUSH 09/11/17 14:00 09/13/17 17:39 Miscellaneous Information Patient in critical care unit? Ass... Q361D .XX 09/11/17 19:00 (Bactroban Nasal 2% Oint) 1 applic BID EACH NARE 09/13/17 10:30 09/20/17 10:29 09/17/17 08:43 (Tums Chew) 500 mg Q6H PRN CHEW 09/13/17 10:30 (Bumex Inj) 1 mg Q8H IV PUSH 09/15/17 17:00 09/17/17 15:58 (D50w (Vial) Inj) 50 ml UNSCH PRN IV PUSH 09/15/17 14:45 (Glucagon Inj) 1 mg UNSCH PRN OTHER 09/15/17 14:45 (NovoLOG SUPPLEMENTAL SCALE) 1 ACHS SLIDING SCALE SQ 09/15/17 17:00 09/17/17 15:58 (Duoneb Neb) 1 ampule Q6HR NEB NEB 09/16/17 10:00 09/17/17 15:09 Ceftriaxone Sodium 2000 mg/ Sodium Chloride 100 ml @ 200 mls/hr Q24H IV 09/17/17 18:00 09/17/17 18:27 A/P Problem List: (1) Sepsis ICD Code: A41.9 - Sepsis, unspecified organism Status: Acute (2) Hospital-acquired pneumonia ICD Code: J18.9 - Pneumonia, unspecified organism Status: Acute (3) Diabetes mellitus with hyperglycemia ICD Code: E11.65 - Type 2 diabetes mellitus with hyperglycemia (4) STAN (acute kidney injury) ICD Code: N17.9 - Acute kidney failure, unspecified (5) COPD exacerbation ICD Code: J44.1 - Chronic obstructive pulmonary disease with (acute) exacerbation (6) HTN (hypertension) ICD Code: I10 - Essential (primary) hypertension Status: Chronic (7) Severe mitral regurgitation ICD Code: I34.0 - Nonrheumatic mitral (valve) insufficiency Status: Acute Assessment and Plan This is a 52-year-old male with a history of COPD, diabetes mellitus, chronic pain, arthritis, CVA, hyperlipidemia, GERD, hypertension and neuropathy. He presents to the emergency department complaining of shortness of breath for the past 2 days associated with nonproductive cough and chills. Chest x-ray shows consolidation in the right lung base and has been started Zithromax and Zosyn. 1. Acute hypoxemic respiratory failure. Failure likely a combination of pneumonia, COPD exacerbation and possibly some degree of congestive heart failure. Patient status post bilateral pigtail catheter placement on 09/14 for drainage of pleural effusions. This was discussed with Dr. Felton from intensive care medicine. Echocardiogram performed on 08/11/17 showed a normal ejection fraction the range of 55-60%.AUSTEN showed severe mitral valve regurgitation, however Dr. Fine from cardiology determined that the patient was not a candidate for possible surgical intervention at that time. Patient still requiring BiPAP. Chest x-ray obtained today (09/15) shows minimal increased parenchymal changes in the right lung. Continue IV antibiotics as per ID recommendations. The patient currently on cefepime IV, azithromycin IV and Linezolid. Continue Bi pap and taper oxygen as tolerated. Continue Bumex but increase dose to 1 mg IV every 8 hours. 09/16 Consult cardiology, check cardiac enzymes. Case discussed with Dr Felton from intensive care medicine. The patient will likely need a mitrat valve replacement given degree of refractory heart failure. 09/17 appreciate cardiology recommendations. Cardiology recommends at this time and mitral valve repair versus replacement due to refractory heart failure. Possible cardiac catheterization in am. 2. Sepsis secondary to hospital acquired pneumonia. Lactic acid 1.3. Follow-up blood cultures with staph epi in 1 out of 4 bottles. Negative urinary Legionella and pneumococcal antigen. Still meets criteria for sepsis \leukocytosis, tachycardia. Continue antibiotics as per ID recommendations. Continue to provide supplemental oxygen and BiPAP as needed to keep oxygen saturation more than 92%. 3. Left heel ulcer stage II. Patient status post left partial calcanectomy and Achilles department. Podiatry has been consulted. The patient's left heel had been treated for osteomyelitis with IM Rocephin and Diflucan. Podiatry consulted. The patient was seen by Dr. Ysabel Echols. Recommended continuation of wound VAC for increased granulation tissue. (M/W/F). Continue offloading of this I with pillow boots. 4. Diabetes mellitus with hyperglycemia. Blood sugars are very elevated and uncontrolled. The patient insulin sliding scale was rated to a medium dose and the patient was started on prandial insulin. 09/14 blood sugar still uncontrolled in the 200s. Continue Levemir at 4 units subcutaneous twice a day. I will increase the dose of insulin NovoLog medium and start the patient on prandial insulin. 09/16 Blood sugars stable. Continue management as above. 5. Uncontrolled Hypertension. 09/14 BP stable. Continue amlodipine 5 Mg by mouth twice a day with clonidine as needed. 09/15 BP elevated into the 160s. This likely secondary to steroid use. I will increase amlodipine 5 mg to 10 mg by mouth daily. 09/16 BP with improved control. Continue amlodipine 10 mg po daily. 6. Acute kidney injury. Nonoliguric. Creatinine now stable. Continue to monitor BUN/creatinine, strict I's and O's, avoid nephrotoxins. FEN. IVF and TF DVT prophylaxis with subcutaneous heparin Discharge Planning Patient with acute on chronic hypoxemic respiratory failure, currently on BiPAP. Continue to monitor in intensive care unit. Problem Qualifiers (1) Sepsis: Qualified Codes: A41.9 - Sepsis, unspecified organism Boo Zamudio MD Sep 17, 2017 18:43
[2017-09-17] MEDS: ACETAMINOPHEN/HYDROcodone 325 MG/10 MG TAB PO PRN (21:37)
[2017-09-18] VITALS (18 sets, daily range): BP systolic 128–171; BP diastolic 57–72; PULSE 74–95; RESP 12–23; TEMP 98.3–98.7; O2SAT 91–100
[2017-09-18] MEDS: BUMETANIDE INJ 1 MG/4 ML VIAL IV PUSH SCH ×3 (01:07→16:56)
[2017-09-18] MEDS: methylPREDNISolone SOD SUCC 40 MG/1 ML VIAL IV PUSH SCH ×5 (01:07→22:32)
[2017-09-18] MEDS: RESP: ALBUTEROL 2.5 MG/3 ML NEB (PRN) NEB (01:55)
[2017-09-18] MEDS: RESP: ALBUTEROL 2.5 MG/IPRATROPIUM 0.5 MG NEB (SCH) NEB ×4 (05:24→21:37)
[2017-09-18] MEDS: HEPARIN SODIUM - SQ 10,000 UNITS/ML VIAL SQ SCH ×2 (06:57→12:54)
[2017-09-18] MEDS: hydrALAZINE HCL 25 MG TAB PO SCH ×3 (06:57→22:28)
[2017-09-18] MEDS: MUPIROCIN 2% OINT 1 APPLIC/GM SYR EACH NARE SCH ×2 (08:44→21:00)
[2017-09-18] MEDS: MULTIVITAMINS/MINERALS THERAPEUTIC TAB PO SCH (08:45)
[2017-09-18] MEDS: GABAPENTIN 300 MG CAP PO SCH ×4 (08:45→22:27)
[2017-09-18] MEDS: DOCUSATE SODIUM 50 MG/SENNA 8.6 MG TAB PO SCH ×2 (08:45→22:27)
[2017-09-18] MEDS: ASPIRIN 81 MG CHEW TAB PO SCH (08:45)
[2017-09-18] MEDS: FLUCONAZOLE 200 MG TAB PO SCH (08:45)
[2017-09-18] MEDS: ASCORBIC ACID 500 MG TAB PO SCH (08:45)
[2017-09-18] MEDS: ATORVASTATIN 40 MG TAB PO SCH (08:45)
[2017-09-18] MEDS: FINASTERIDE 5 MG TAB PO SCH (08:45)
[2017-09-18] MEDS: amLODIPine BESYLATE 5 MG TAB PO SCH ×2 (08:45→22:28)
[2017-09-18] MEDS: PANTOPRAZOLE SOD 40 MG DELAYED RELEASE TAB PO SCH (08:45)
[2017-09-18] MEDS: INSULIN DETEMIR 100 UNITS/ML VIAL SQ SCH (08:46)
[2017-09-18] MEDS: INSULIN ASPART SUPPLEMENTAL SCALE SQ SCH ×4 (08:46→22:31)
[2017-09-18] MEDS: SODIUM CHLORIDE 0.9% FLUSH 10 ML FLUSH IV FLUSH SCH ×2 (08:46→22:32)
[2017-09-18 10:05] LABS: AUTOMATED NEUTROPHIL # 19.3 TH/MM3 (1.8-7.7); BASOPHIL % 0.1 % (0.0-2.0); HEMATOCRIT 29.2 % (39.0-51.0); HEMO FLAGS DIFF FINAL; LYMPH % 3.9 % (9.0-44.0); LYMPHOCYTE # 0.8 TH/MM3 (1.0-4.8); MEAN CORPUSCULAR HEMOGLOBIN 24.9 PG (27.0-34.0); MEAN CORPUSCULAR HGB CONC 32.3 % (32.0-36.0); MONO % 3.1 % (0.0-8.0); NEUT % 92.9 % (16.0-70.0); PLATELET COUNT 499 TH/MM3 (150-450); RED CELL DISTRIBUTION WIDTH 21.6 % (11.6-17.2); WHITE BLOOD COUNT 20.7 TH/MM3 (4.0-11.0)
[2017-09-18 10:26] LABS: ANION GAP 9 MEQ/L (5-15); AST (GOT) 28 U/L (15-37); BICARBONATE 26.4 MEQ/L (21.0-32.0); BLOOD UREA NITROGEN 65 MG/DL (7-18); CHLORIDE 99 MEQ/L (98-107); GLOMERULAR FILTRATION RATE 60 ML/MIN (>89); MAGNESIUM 2.3 MG/DL (1.5-2.5); POTASSIUM 4.3 MEQ/L (3.5-5.1); SODIUM (NA) 134 MEQ/L (136-145)
[2017-09-18 10:27] LABS: ALT (GPT) 86 U/L (12-78)
[2017-09-18 10:30] LABS: ALKALINE PHOSPHATASE 112 U/L (45-117); TOTAL BILIRUBIN ADULT 0.2 MG/DL (0.2-1.0)
[2017-09-18] MEDS ORDERED: HEPARIN-NS/PF INJ 500 ML ONE (10:44)
[2017-09-18] MEDS ORDERED: MIDAZOLAM HCL 2 MG/2 ML VIAL ONE (10:45)
[2017-09-18] MEDS ORDERED: HEPARIN SODIUM - IV 10,000 UNITS/10 ML VIAL ONE (10:45)
[2017-09-18] MEDS ORDERED: VERAPAMIL HCL 5 MG/2 ML VIAL ONE (10:45)
[2017-09-18] MEDS ORDERED: NITROGLYCERIN INJ 5 ML ONE (10:45)
[2017-09-18] MEDS ORDERED: MISC INFORMATION XX ONE (12:15)
[2017-09-18] MEDS ORDERED: IOHEXOL 350 MG/ML 100 ML BTL (for Cath Lab) OTHER ONE (13:08)
[2017-09-18] MEDS: MORPHINE SULFATE 4 MG/ML INJ IV PUSH PRN ×2 (13:11→22:29)
--- NOTE | 2017-09-18 14:50 | PD.CARD.PN ---
Subjective Subjective Remarks No events overnight Post-cath today SOB better Objective Medications Current Medications Medications (Trade) Dose Ordered Sig/Sumanth Route Start Time Stop Time Status Last Admin (Norvasc) 5 mg BID PO 09/10/17 21:00 09/18/17 08:45 (Vitamin C) 500 mg DAILY PO 09/11/17 09:00 09/18/17 08:45 (Aspirin Chew) 81 mg DAILY PO 09/11/17 09:00 09/18/17 08:45 (Lipitor) 40 mg DAILY PO 09/11/17 09:00 09/18/17 08:45 (Proscar) 5 mg DAILY PO 09/11/17 09:00 09/18/17 08:45 (Diflucan) 200 mg DAILY PO 09/11/17 09:00 09/18/17 08:45 (Neurontin) 600 mg QID PO 09/10/17 18:00 09/18/17 12:54 (Apresoline) 25 mg Q8HR PO 09/10/17 22:00 09/18/17 12:54 (Theragran M Tab) 1 tab DAILY PO 09/11/17 09:00 09/18/17 08:45 (Nicotine Gum) 4 mg Q2H PRN CHEW 09/10/17 16:15 (Vasotec Inj) 1.25 mg Q6H PRN IV PUSH 09/10/17 16:30 (Apresoline Inj) 10 mg Q6H PRN IV PUSH 09/10/17 16:30 (Catapres) 0.1 mg Q6H PRN PO 09/10/17 16:30 (Albuterol Neb) 2.5 mg Q2HR NEB PRN NEB 09/10/17 16:30 09/18/17 01:55 (NS Flush) 2 ml UNSCH PRN IV FLUSH 09/10/17 16:30 09/11/17 09:47 (NS Flush) 2 ml BID IV FLUSH 09/10/17 21:00 09/18/17 08:46 (Tylenol) 650 mg Q4H PRN PO 09/10/17 16:30 (Zofran Inj) 4 mg Q6H PRN IVP 09/10/17 16:30 (Tylenol) 650 mg Q6H PRN PO 09/10/17 16:30 ([place] 5-325 Mg) 1 tab Q4H PRN PO 09/10/17 16:30 09/17/17 01:00 (Morphine Inj) 1 mg Q3H PRN IV PUSH 09/10/17 16:30 09/18/17 13:11 (Narcan Inj) 0.4 mg UNSCH PRN IV PUSH 09/10/17 16:30 (Alanna-Colace) 1 tab BID PO 09/10/17 21:00 09/18/17 08:45 (Senokot) 17.2 mg Q12H PRN PO 09/10/17 16:30 (Dulcolax Supp) 10 mg DAILY PRN RECTAL 09/10/17 16:30 (Lactulose Liq) 30 ml DAILY PRN PO 09/10/17 16:30 ([place] 10-325 Mg) 1 tab Q4H PRN PO 09/10/17 17:00 09/17/17 21:37 (Protonix) 40 mg DAILY PO 09/11/17 21:00 09/18/17 08:45 (SoluMEDROL INJ) 40 mg Q6HR IV PUSH 09/11/17 12:00 09/18/17 12:54 (Ativan Inj) 1 mg Q6H PRN IV PUSH 09/11/17 14:00 09/13/17 17:39 Miscellaneous Information Patient in critical care unit? Ass... Q361D .XX 09/11/17 19:00 (Bactroban Nasal 2% Oint) 1 applic BID EACH NARE 09/13/17 10:30 09/20/17 10:29 09/18/17 08:44 (Tums Chew) 500 mg Q6H PRN CHEW 09/13/17 10:30 (Bumex Inj) 1 mg Q8H IV PUSH 09/15/17 17:00 09/18/17 08:44 (D50w (Vial) Inj) 50 ml UNSCH PRN IV PUSH 09/15/17 14:45 (Glucagon Inj) 1 mg UNSCH PRN OTHER 09/15/17 14:45 (NovoLOG SUPPLEMENTAL SCALE) 1 ACHS SLIDING SCALE SQ 09/15/17 17:00 09/18/17 13:12 (Duoneb Neb) 1 ampule Q6HR NEB NEB 09/16/17 10:00 09/18/17 09:14 Ceftriaxone Sodium 2000 mg/ Sodium Chloride 100 ml @ 200 mls/hr Q24H IV 09/17/17 18:00 09/17/17 18:27 (Levemir Inj) 20 units BID SQ 09/18/17 21:00 Vital Signs / I&O Vital Signs Date Time Temp Pulse Resp B/P (MAP) Pulse Ox O2 Delivery O2 Flow Rate FiO2 09/18/17 13:16 16 09/18/17 09:14 92 Nasal Cannula 6.00 09/18/17 07:00 88 Partial Non-Rebreather 15.00 65 09/18/17 06:00 90 09/18/17 05:20 94 40 09/18/17 04:00 74 09/18/17 04:00 98.5 74 16 134/60 (84) 96 09/18/17 02:00 83 09/18/17 01:55 96 40 09/18/17 00:00 91 09/18/17 00:00 98.7 91 23 151/69 (96) 94 09/17/17 22:37 24 09/17/17 22:00 94 Non-Rebreather 15.00 100 09/17/17 22:00 93 09/17/17 20:00 92 09/17/17 20:00 98.5 92 21 155/73 (100) 96 09/17/17 19:00 Partial Non-Rebreather 15.00 09/17/17 18:00 95 09/17/17 16:00 98.7 97 24 168/74 (105) 99 09/17/17 16:00 97 I/O 09/17/17 09/17/17 09/17/17 09/18/17 09/18/17 09/18/17 07:00 15:00 23:00 07:00 15:00 23:00 Intake Total 960 ml 100 ml 550 ml 480 ml Output Total 2400 ml 984 ml 1950 ml Balance -1440 ml 100 ml -434 ml -1470 ml Intake Oral 960 ml 300 ml 480 ml IV Total 100 ml 250 ml Output Urine Total 2400 ml 984 ml 1950 ml Physical Exam GENERAL: NAD, AAOx3 SKIN: Warm and dry. HEAD: Atraumatic. Normocephalic. EYES: Pupils equal and round. No scleral icterus. No injection or drainage. ENT: No nasal bleeding or discharge. Mucous membranes pink and moist. NECK: Trachea midline. No JVD. CARDIOVASCULAR: Regular rate and rhythm. 2/6 holosystolic murmur at the apex RESPIRATORY: No accessory muscle use. Decreased breath sounds bilaterally GASTROINTESTINAL: Abdomen soft, non-tender, nondistended. Hepatic and splenic margins not palpable. MUSCULOSKELETAL: Extremities without clubbing, cyanosis, or edema. No obvious deformities. NEUROLOGICAL: Awake and alert. No obvious cranial nerve deficits. Motor grossly within normal limits. Five out of 5 muscle strength in the arms and legs. Normal speech. PSYCHIATRIC: Appropriate mood and affect; insight and judgment normal. Laboratory Laboratory Tests Test 09/17/17 19:00 09/18/17 09:30 Erythrocyte Sedimentation Rate 8 mm/hr White Blood Count 20.7 TH/MM3 Red Blood Count 3.80 MIL/MM3 Hemoglobin 9.4 GM/DL Hematocrit 29.2 % Mean Corpuscular Volume 77.0 FL Mean Corpuscular Hemoglobin 24.9 PG Mean Corpuscular Hemoglobin Concent 32.3 % Red Cell Distribution Width 21.6 % Platelet Count 499 TH/MM3 Mean Platelet Volume 8.4 FL Neutrophils (%) (Auto) 92.9 % Lymphocytes (%) (Auto) 3.9 % Monocytes (%) (Auto) 3.1 % Eosinophils (%) (Auto) 0.0 % Basophils (%) (Auto) 0.1 % Neutrophils # (Auto) 19.3 TH/MM3 Lymphocytes # (Auto) 0.8 TH/MM3 Monocytes # (Auto) 0.6 TH/MM3 Eosinophils # (Auto) 0.0 TH/MM3 Basophils # (Auto) 0.0 TH/MM3 CBC Comment DIFF FINAL Differential Comment Blood Urea Nitrogen 65 MG/DL Creatinine 1.26 MG/DL Random Glucose 191 MG/DL Total Protein 5.9 GM/DL Albumin 2.7 GM/DL Calcium Level 8.4 MG/DL Phosphorus Level 3.3 MG/DL Magnesium Level 2.3 MG/DL Alkaline Phosphatase 112 U/L Aspartate Amino Transf (AST/SGOT) 28 U/L Alanine Aminotransferase (ALT/SGPT) 86 U/L Total Bilirubin 0.2 MG/DL Sodium Level 134 MEQ/L Potassium Level 4.3 MEQ/L Chloride Level 99 MEQ/L Carbon Dioxide Level 26.4 MEQ/L Anion Gap 9 MEQ/L Estimat Glomerular Filtration Rate 60 ML/MIN Assessment and Plan Problem List: (1) Severe mitral regurgitation ICD Codes: I34.0 - Nonrheumatic mitral (valve) insufficiency Status: Acute (2) Hospital-acquired pneumonia ICD Codes: J18.9 - Pneumonia, unspecified organism Status: Acute (3) HTN (hypertension) ICD Codes: I10 - Essential (primary) hypertension Status: Chronic (4) COPD exacerbation ICD Codes: J44.1 - Chronic obstructive pulmonary disease with (acute) exacerbation (5) STAN (acute kidney injury) ICD Codes: N17.9 - Acute kidney failure, unspecified Assessment and Plan 1) Respiratory failure secondary to severe mitral regurgitation 2) CT surgery evaluation for mitral valve repair Discussed with Dr. Beck 3) No significant CAD on cath 4) Con't diuresis Marty Fine DO Sep 18, 2017 14:50
--- NOTE | 2017-09-18 15:18 | HHI.PR ---
Subjective Remarks deferred entry - patient seen at 8:30 am patient states breathing is slightly better denies cp afebrile Objective Vitals Vital Signs Date Time Temp Pulse Resp B/P (MAP) Pulse Ox O2 Delivery O2 Flow Rate FiO2 09/18/17 14:00 91 09/18/17 13:16 16 09/18/17 13:00 95 09/18/17 12:00 98.7 95 15 171/72 (105) 100 09/18/17 10:00 93 09/18/17 09:14 92 Nasal Cannula 6.00 09/18/17 09:00 91 09/18/17 08:00 98.6 90 23 137/57 (83) 91 09/18/17 08:00 90 09/18/17 07:00 88 Partial Non-Rebreather 15.00 65 09/18/17 06:00 90 09/18/17 05:20 94 40 09/18/17 04:00 74 09/18/17 04:00 98.5 74 16 134/60 (84) 96 09/18/17 02:00 83 09/18/17 01:55 96 40 09/18/17 00:00 91 09/18/17 00:00 98.7 91 23 151/69 (96) 94 09/17/17 22:37 24 09/17/17 22:00 94 Non-Rebreather 15.00 100 09/17/17 22:00 93 09/17/17 20:00 92 09/17/17 20:00 98.5 92 21 155/73 (100) 96 09/17/17 19:00 Partial Non-Rebreather 15.00 09/17/17 18:00 95 09/17/17 16:00 98.7 97 24 168/74 (105) 99 09/17/17 16:00 97 I/O 09/17/17 09/17/17 09/17/17 09/18/17 09/18/17 09/18/17 07:00 15:00 23:00 07:00 15:00 23:00 Intake Total 960 ml 100 ml 550 ml 480 ml Output Total 2400 ml 984 ml 1950 ml Balance -1440 ml 100 ml -434 ml -1470 ml Intake Oral 960 ml 300 ml 480 ml IV Total 100 ml 250 ml Output Urine Total 2400 ml 984 ml 1950 ml Result Diagram: 09/18/1792909/18/17 0930 Imaging Last Impressions Chest X-Ray 09/16/17 0000 Signed Impressions: Service Date/Time: Saturday, September 16, 2017 11:49 - CONCLUSION: 1. Right chest tube out. No pneumothorax. 2. Patchy diffuse bilateral airspace disease without significant change. Jose Francisco Rodriguez MD Objective Remarks GENERAL: This is a well-nourished, well-developed critically ill patient, on NRB mask - mod distress SKIN: No rashes, ecchymoses or lesions. Very pale. CARDIOVASCULAR: Regular rate and rhythm with a systolic murmur, no rubs or gallops RESPIRATORY: BL bibasilar crackles at both bases, no sw=heezingor rhonchi GASTROINTESTINAL: Abdomen soft, non-tender, nondistended. No guarding. MUSCULOSKELETAL: Extremities without clubbing, cyanosis, but with bilateral lower extremity pitting edema. Left heel with wound vac NEUROLOGICAL: Alert and oriented Cranial nerves II through XII intact. Motor and sensory grossly within normal limits. Five out of 5 muscle strength in all muscle groups. Normal speech. Procedures BL pigatil catheter chest placement on 09/14 Medications and IVs Current Medications Medications (Trade) Dose Ordered Sig/Sumanth Route Start Time Stop Time Status Last Admin (Norvasc) 5 mg BID PO 09/10/17 21:00 09/18/17 08:45 (Vitamin C) 500 mg DAILY PO 09/11/17 09:00 09/18/17 08:45 (Aspirin Chew) 81 mg DAILY PO 09/11/17 09:00 09/18/17 08:45 (Lipitor) 40 mg DAILY PO 09/11/17 09:00 09/18/17 08:45 (Proscar) 5 mg DAILY PO 09/11/17 09:00 09/18/17 08:45 (Diflucan) 200 mg DAILY PO 09/11/17 09:00 09/18/17 08:45 (Neurontin) 600 mg QID PO 09/10/17 18:00 09/18/17 12:54 (Apresoline) 25 mg Q8HR PO 09/10/17 22:00 09/18/17 12:54 (Theragran M Tab) 1 tab DAILY PO 09/11/17 09:00 09/18/17 08:45 (Nicotine Gum) 4 mg Q2H PRN CHEW 09/10/17 16:15 (Vasotec Inj) 1.25 mg Q6H PRN IV PUSH 09/10/17 16:30 (Apresoline Inj) 10 mg Q6H PRN IV PUSH 09/10/17 16:30 (Catapres) 0.1 mg Q6H PRN PO 09/10/17 16:30 (Albuterol Neb) 2.5 mg Q2HR NEB PRN NEB 09/10/17 16:30 09/18/17 01:55 (NS Flush) 2 ml UNSCH PRN IV FLUSH 09/10/17 16:30 09/11/17 09:47 (NS Flush) 2 ml BID IV FLUSH 09/10/17 21:00 09/18/17 08:46 (Tylenol) 650 mg Q4H PRN PO 09/10/17 16:30 (Zofran Inj) 4 mg Q6H PRN IVP 09/10/17 16:30 (Tylenol) 650 mg Q6H PRN PO 09/10/17 16:30 ([place] 5-325 Mg) 1 tab Q4H PRN PO 09/10/17 16:30 09/17/17 01:00 (Morphine Inj) 1 mg Q3H PRN IV PUSH 09/10/17 16:30 09/18/17 13:11 (Narcan Inj) 0.4 mg UNSCH PRN IV PUSH 09/10/17 16:30 (Alanna-Colace) 1 tab BID PO 09/10/17 21:00 09/18/17 08:45 (Senokot) 17.2 mg Q12H PRN PO 09/10/17 16:30 (Dulcolax Supp) 10 mg DAILY PRN RECTAL 09/10/17 16:30 (Lactulose Liq) 30 ml DAILY PRN PO 09/10/17 16:30 ([place] 10-325 Mg) 1 tab Q4H PRN PO 09/10/17 17:00 09/17/17 21:37 (Protonix) 40 mg DAILY PO 09/11/17 21:00 09/18/17 08:45 (SoluMEDROL INJ) 40 mg Q6HR IV PUSH 09/11/17 12:00 09/18/17 12:54 (Ativan Inj) 1 mg Q6H PRN IV PUSH 09/11/17 14:00 09/13/17 17:39 Miscellaneous Information Patient in critical care unit? Ass... Q361D .XX 09/11/17 19:00 (Bactroban Nasal 2% Oint) 1 applic BID EACH NARE 09/13/17 10:30 09/20/17 10:29 09/18/17 08:44 (Tums Chew) 500 mg Q6H PRN CHEW 09/13/17 10:30 (Bumex Inj) 1 mg Q8H IV PUSH 09/15/17 17:00 09/18/17 08:44 (D50w (Vial) Inj) 50 ml UNSCH PRN IV PUSH 09/15/17 14:45 (Glucagon Inj) 1 mg UNSCH PRN OTHER 09/15/17 14:45 (NovoLOG SUPPLEMENTAL SCALE) 1 ACHS SLIDING SCALE SQ 09/15/17 17:00 09/18/17 13:12 (Duoneb Neb) 1 ampule Q6HR NEB NEB 09/16/17 10:00 09/18/17 14:57 Ceftriaxone Sodium 2000 mg/ Sodium Chloride 100 ml @ 200 mls/hr Q24H IV 09/17/17 18:00 09/17/17 18:27 (Levemir Inj) 20 units BID SQ 09/18/17 21:00 Urinary Catheter: Yes Assessment to: Continue Beckman insert reason: ICU Pt Getting Diuretics A/P Problem List: (1) Sepsis ICD Code: A41.9 - Sepsis, unspecified organism Status: Acute (2) Hospital-acquired pneumonia ICD Code: J18.9 - Pneumonia, unspecified organism Status: Acute (3) Diabetes mellitus with hyperglycemia ICD Code: E11.65 - Type 2 diabetes mellitus with hyperglycemia (4) STAN (acute kidney injury) ICD Code: N17.9 - Acute kidney failure, unspecified (5) COPD exacerbation ICD Code: J44.1 - Chronic obstructive pulmonary disease with (acute) exacerbation (6) HTN (hypertension) ICD Code: I10 - Essential (primary) hypertension Status: Chronic (7) Severe mitral regurgitation ICD Code: I34.0 - Nonrheumatic mitral (valve) insufficiency Status: Acute Assessment and Plan This is a 52-year-old male with a history of COPD, diabetes mellitus, chronic pain, arthritis, CVA, hyperlipidemia, GERD, hypertension and neuropathy. He presents to the emergency department complaining of shortness of breath for the past 2 days associated with nonproductive cough and chills. Chest x-ray shows consolidation in the right lung base and has been started Zithromax and Zosyn. 1. Acute hypoxemic respiratory failure. Failure likely a combination of pneumonia, COPD exacerbation and possibly some degree of congestive heart failure. Patient status post bilateral pigtail catheter placement on 09/14 for drainage of pleural effusions. This was discussed with Dr. Felton from intensive care medicine. Echocardiogram performed on 08/11/17 showed a normal ejection fraction the range of 55-60%.AUSTEN showed severe mitral valve regurgitation, however Dr. Fine from cardiology determined that the patient was not a candidate for possible surgical intervention at that time. Patient still requiring BiPAP. Chest x-ray obtained today (09/15) shows minimal increased parenchymal changes in the right lung. Continue IV antibiotics as per ID recommendations. The patient currently on cefepime IV, azithromycin IV and Linezolid. Continue Bi pap and taper oxygen as tolerated. Continue Bumex but increase dose to 1 mg IV every 8 hours. 09/16 Consult cardiology, check cardiac enzymes. Case discussed with Dr Felton from intensive care medicine. The patient will likely need a mitrat valve replacement given degree of refractory heart failure. 09/17 appreciate cardiology recommendations. Cardiology recommends at this time mitral valve repair versus replacement due to refractory heart failure. Possible cardiac catheterization in am. 09/18 for cardiac cath today. 2. Sepsis secondary to hospital acquired pneumonia. Lactic acid 1.3. Follow-up blood cultures with staph epi in 1 out of 4 bottles. Negative urinary Legionella and pneumococcal antigen. Still meets criteria for sepsis \leukocytosis, tachycardia. 09/18 Continue antibiotics as per ID recommendations. Continue to provide supplemental oxygen and BiPAP as needed to keep oxygen saturation more than 92% . Cureently on IV Rocephin. 3. Left heel ulcer stage II. osteomyelitis, Strep Bovis Patient status post left partial calcanectomy and Achilles department. Podiatry has been consulted. The patient's left heel had been treated for osteomyelitis with IM Rocephin and Diflucan. Podiatry consulted. The patient was seen by Dr. Ysabel Echols. Recommended continuation of wound VAC for increased granulation tissue. (M/W/F). Continue offloading of this I with pillow boots. 4. Diabetes mellitus with hyperglycemia. Blood sugars are very elevated and uncontrolled. The patient insulin sliding scale was rated to a medium dose and the patient was started on prandial insulin. 09/14 blood sugar still uncontrolled in the 200s. Continue Levemir at 4 units subcutaneous twice a day. I will increase the dose of insulin NovoLog medium and start the patient on prandial insulin. 09/16 Blood sugars stable. Continue management as above. 09/18 Decrease insulin Levemir to 1/2 the dose while npo. 5. Uncontrolled Hypertension. 09/14 BP stable. Continue amlodipine 5 Mg by mouth twice a day with clonidine as needed. 09/15 BP elevated into the 160s. This likely secondary to steroid use. I will increase amlodipine 5 mg to 10 mg by mouth daily. 09/16 BP with improved control. Continue amlodipine 10 mg po daily. 6. Acute kidney injury. Nonoliguric. Creatinine trending down. Continue to monitor BUN/creatinine, strict I's and O's, avoid nephrotoxins. FEN. IVF and TF DVT prophylaxis with subcutaneous heparin Discharge Planning Patient with acute on chronic hypoxemic respiratory failure, currently on BiPAP. Continue to monitor in intensive care unit. Problem Qualifiers (1) Sepsis: Qualified Codes: A41.9 - Sepsis, unspecified organism Boo Zamudio MD Sep 18, 2017 15:18
--- NOTE | 2017-09-18 16:13 | PD.CAR.PN ---
CVT Progress Note Subjective/Hospital Course: RISK SCORES About the STS Risk Calculator Procedure: MV Replacement Only Risk of Mortality: 1.705% Morbidity or Mortality: 23.972% Long Length of Stay: 14.244% Short Length of Stay: 23.874% Permanent Stroke: 1.483% Prolonged Ventilation: 15.012% DSW Infection: 0.232% Renal Failure: 6.621% Reoperation: 10.463% Objective: Vital Signs Date Time Temp Pulse Resp B/P (MAP) Pulse Ox O2 Delivery O2 Flow Rate FiO2 09/18/17 16:00 79 09/18/17 16:00 98.4 81 12 128/60 (82) 95 09/18/17 14:00 91 09/18/17 13:16 16 09/18/17 13:00 95 09/18/17 12:00 98.7 95 15 171/72 (105) 100 09/18/17 10:00 93 09/18/17 09:14 92 Nasal Cannula 6.00 09/18/17 09:00 91 09/18/17 08:00 98.6 90 23 137/57 (83) 91 09/18/17 08:00 90 09/18/17 07:00 88 Partial Non-Rebreather 15.00 65 09/18/17 06:00 90 09/18/17 05:20 94 40 09/18/17 04:00 74 09/18/17 04:00 98.5 74 16 134/60 (84) 96 09/18/17 02:00 83 09/18/17 01:55 96 40 09/18/17 00:00 91 09/18/17 00:00 98.7 91 23 151/69 (96) 94 09/17/17 22:37 24 09/17/17 22:00 94 Non-Rebreather 15.00 100 09/17/17 22:00 93 09/17/17 20:00 92 09/17/17 20:00 98.5 92 21 155/73 (100) 96 09/17/17 19:00 Partial Non-Rebreather 15.00 09/17/17 18:00 95 Labs: Laboratory Tests Test 09/18/17 09:30 White Blood Count 20.7 TH/MM3 (4.0-11.0) Red Blood Count 3.80 MIL/MM3 (4.50-5.90) Hemoglobin 9.4 GM/DL (13.0-17.0) Hematocrit 29.2 % (39.0-51.0) Mean Corpuscular Volume 77.0 FL (80.0-100.0) Mean Corpuscular Hemoglobin 24.9 PG (27.0-34.0) Mean Corpuscular Hemoglobin Concent 32.3 % (32.0-36.0) Red Cell Distribution Width 21.6 % (11.6-17.2) Platelet Count 499 TH/MM3 (150-450) Mean Platelet Volume 8.4 FL (7.0-11.0) Neutrophils (%) (Auto) 92.9 % (16.0-70.0) Lymphocytes (%) (Auto) 3.9 % (9.0-44.0) Monocytes (%) (Auto) 3.1 % (0.0-8.0) Eosinophils (%) (Auto) 0.0 % (0.0-4.0) Basophils (%) (Auto) 0.1 % (0.0-2.0) Neutrophils # (Auto) 19.3 TH/MM3 (1.8-7.7) Lymphocytes # (Auto) 0.8 TH/MM3 (1.0-4.8) Monocytes # (Auto) 0.6 TH/MM3 (0-0.9) Eosinophils # (Auto) 0.0 TH/MM3 (0-0.4) Basophils # (Auto) 0.0 TH/MM3 (0-0.2) CBC Comment DIFF FINAL Differential Comment Blood Urea Nitrogen 65 MG/DL (7-18) Creatinine 1.26 MG/DL (0.60-1.30) Random Glucose 191 MG/DL (74-106) Total Protein 5.9 GM/DL (6.4-8.2) Albumin 2.7 GM/DL (3.4-5.0) Calcium Level 8.4 MG/DL (8.5-10.1) Phosphorus Level 3.3 MG/DL (2.5-4.9) Magnesium Level 2.3 MG/DL (1.5-2.5) Alkaline Phosphatase 112 U/L (45-117) Aspartate Amino Transf (AST/SGOT) 28 U/L (15-37) Alanine Aminotransferase (ALT/SGPT) 86 U/L (12-78) Total Bilirubin 0.2 MG/DL (0.2-1.0) Sodium Level 134 MEQ/L (136-145) Potassium Level 4.3 MEQ/L (3.5-5.1) Chloride Level 99 MEQ/L (98-107) Carbon Dioxide Level 26.4 MEQ/L (21.0-32.0) Anion Gap 9 MEQ/L (5-15) Estimat Glomerular Filtration Rate 60 ML/MIN (>89) (Jesica Lovell) Subjective/Hospital Course: STS risk by my assessment is as follows: Risk Model and Variables - STS Adult Cardiac Surgery Database Version 2.81 RISK SCORES About the STS Risk Calculator Procedure: MV Repair Risk of Mortality: 3.971% Morbidity or Mortality: 42.263% Long Length of Stay: 25.88% Short Length of Stay: 16.122% Permanent Stroke: 1.589% Prolonged Ventilation: 25.478% DSW Infection: 0.373% Renal Failure: 13.927% Reoperation: 14.009% (Zelda Beck MD) Result Diagram: 09/18/1792909/18/17929 (1) Severe mitral regurgitation (2) Hospital-acquired pneumonia (3) HTN (hypertension) (4) COPD exacerbation (5) STAN (acute kidney injury) (Jesica Lovell) Plan: Please see my consult note. (Zelda Beck MD) Jesica Lovell Sep 18, 2017 16:13 Zelda Beck MD Sep 19, 2017 08:49
[2017-09-18] MEDS: cefTRIAXone INJ 2,000 MG in SODIUM CHLORIDE 0.9% INJ 100 ML IV SCH (16:56)
--- NOTE | 2017-09-18 19:28 | HHI.PR ---
Subjective Remarks 52 YOWM with RF,Pneumonia, Sepsis mild distress no Fever Chest tubes removed had cardiac cath, sig MR CTS evaluating pt Objective Vital Signs Vital Signs Date Time Temp Pulse Resp B/P (MAP) Pulse Ox O2 Delivery O2 Flow Rate FiO2 09/18/17 18:00 90 09/18/17 16:00 79 09/18/17 16:00 98.4 81 12 128/60 (82) 95 09/18/17 14:00 91 09/18/17 13:16 16 09/18/17 13:00 95 09/18/17 12:00 98.7 95 15 171/72 (105) 100 09/18/17 10:00 93 09/18/17 09:14 92 Nasal Cannula 6.00 09/18/17 09:00 91 09/18/17 08:00 98.6 90 23 137/57 (83) 91 09/18/17 08:00 90 09/18/17 07:00 88 Partial Non-Rebreather 15.00 65 09/18/17 06:00 90 09/18/17 05:20 94 40 09/18/17 04:00 74 09/18/17 04:00 98.5 74 16 134/60 (84) 96 09/18/17 02:00 83 09/18/17 01:55 96 40 09/18/17 00:00 91 09/18/17 00:00 98.7 91 23 151/69 (96) 94 09/17/17 22:37 24 09/17/17 22:00 94 Non-Rebreather 15.00 100 09/17/17 22:00 93 09/17/17 20:00 92 09/17/17 20:00 98.5 92 21 155/73 (100) 96 I/O 09/17/17 09/17/17 09/17/17 09/18/17 09/18/17 09/18/17 07:00 15:00 23:00 07:00 15:00 23:00 Intake Total 960 ml 100 ml 550 ml 480 ml 820 ml Output Total 2400 ml 984 ml 1950 ml 1975 ml Balance -1440 ml 100 ml -434 ml -1470 ml -1155 ml Intake Oral 960 ml 300 ml 480 ml 720 ml IV Total 100 ml 250 ml 100 ml Output Urine Total 2400 ml 984 ml 1950 ml 1975 ml Stool Total 0 ml Result Diagram: 09/18/1792909/18/17929 Objective Remarks GENERAL: MBMN WM on BIPAP SKIN: Warm and dry. HEAD: Normocephalic. EYES: No scleral icterus. No injection or drainage. NECK: Supple, trachea midline. No JVD or lymphadenopathy. CARDIOVASCULAR: Regular rate and rhythm without murmurs, gallops, or rubs. RESPIRATORY: Breath sounds equal bilaterally. No accessory muscle use. GASTROINTESTINAL: Abdomen soft, non-tender, nondistended. MUSCULOSKELETAL: No cyanosis, or edema. BACK: Nontender without obvious deformity. No CVA tenderness. A/P Assessment and Plan Resp Failure, improved COPD Sepsis Pneumonia DM Severe Mitral regurgitation PLAN Supplement 02 with NC Cont Abx Aerosol nebs IV Steroids CTS evaluating for MV repair Dariel Landry MD Sep 18, 2017 19:28
[2017-09-18] MEDS ORDERED: INSULIN DETEMIR 100 UNITS/ML VIAL SQ SCH (21:00)
[2017-09-19] VITALS (16 sets, daily range): BP systolic 150–194; BP diastolic 57–81; PULSE 85–96; RESP 13–17; TEMP 98.1–98.6; O2SAT 93–100
--- NOTE | 2017-09-19 00:19 | MA ---
cc: MARTY AGUIAR DO DATE: 09/18/2017 PROCEDURE Left heart catheterization, right heart catheterization, coronary angiogram, ultrasound guided access. PREPROCEDURE DIAGNOSIS Severe mitral regurgitation for consideration of repair versus replacement, acute congestive heart failure on chronic congestive heart failure. POSTPROCEDURE DIAGNOSIS Severe mitral regurgitation, moderate pulmonary hypertension (type 2). MEDICATIONS 1. Heparin 3600 units. 2. Verapamil 2.5 mg. 3. Nitro 200 mcg. CONTRAST 70 cc Fluoroscopy: 6.9 minutes Moderate sedation: Zero minutes. ESTIMATED BLOOD LOSS 10 cc PROCEDURAL SUMMARY Adilson Lehman is a pleasant 52-year-old male whom I see in the office and was found to have severe mitral regurgitation. He has had difficulty with congestive heart failure and consideration has been made for possible repair versus replacement of his mitral valve. Because of this he was recommended right and left heart catheterization. Risks, benefits and alternatives were explained to him and he consented as such. He was brought to lab and prepped in the usual sterile fashion. Right radial artery was accessed using a modified Seldinger technique and placement of a 5/6 Dutch slender sheath. Right brachial artery was accessed using a modified Seldinger technique and ultrasound guidance and placement of a 5/6 Dutch slender sheath. Both were easily aspirated and flushed. A [place]-Enoch catheter was advanced to a wedge position and pressures as well as oxygen saturations were obtained on standard pulled back. [place]-Enoch catheter was removed. JR-4 was advanced over a J-wire to the upper arm where there was some resistance. Angiogram showed multiple areas of stenosis. These were managed with a Glidewire which was then used to advance the catheter into the aortic root and across the aortic valve for measurement of left ventricular pressure. JR-4 was pulled back across the aortic valve showing no significant gradient of aortic stenosis. JR-4 was used for selective angiography of the right coronary artery. This was exchanged out for a JL-3.5 and eventually a JL-4 which was used for selective angiography of the left coronary artery system. JL-3.5 was removed over a J-wire. A radial band was placed over the arteriotomy site for hemostasis. Right brachial sheath was removed and pressure held for hemostasis. 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 FINDINGS Left main: Normal size vessel with adequate reflux and no significant disease. It trifurcates into an LAD ramus and circumflex artery. LAD: Normal-size vessel with 10% disease in the midportion and mild luminal irregularities throughout. It gives off to the small diagonals. Ramus: 40 to 50% in the midportion. Left circumflex: Normal size vessel with one obtuse marginal, does not appear to have any significant disease. RCA: Normal-size vessel with no significant disease. HEMODYNAMIC RA 11. RV 54/9. RVEDP 13. PA 50/22, mean PA 36. Wedge 22. LVEDP 17. Cardiac output 11.5, cardiac index 5.5 (obviously not calculated correctly with the patient needing oxygenation throughout the right heart catheterization). IMPRESSION 1. Severe mitral regurgitation for consideration of repair versus replacement. 2. Acute congestive heart failure and chronic congestive heart failure secondary to mitral regurgitation. 3. Moderate pulmonary hypertension (type 2) 4. Mild to moderate coronary artery disease. RECOMMENDATIONS 1. Mr. Lehman will be seen by CT surgery for consideration of mitral valve repair versus replacement. Case was discussed with Dr. Beck. Consideration will be made for possible mini mitral valve repair. 2. We will continue to diurese him as possible. 3. He will need to be cleared from infectious disease standpoint before surgery. 4. Further recommendations will be made after CT surgery evaluation. Thank you for allowing me to see Adilson Lehman. If there are any questions please do not hesitate to call. Marty Aguiar DO VGP/DOMENICA /10:46 PM /12:05 AM
[2017-09-19] MEDS: BUMETANIDE INJ 1 MG/4 ML VIAL IV PUSH SCH ×3 (01:44→16:29)
[2017-09-19] MEDS: RESP: ALBUTEROL 2.5 MG/IPRATROPIUM 0.5 MG NEB (SCH) NEB ×4 (03:26→22:37)
[2017-09-19] MEDS: methylPREDNISolone SOD SUCC 40 MG/1 ML VIAL IV PUSH SCH ×3 (04:18→21:40)
[2017-09-19] MEDS: hydrALAZINE HCL 25 MG TAB PO SCH ×3 (04:18→21:40)
[2017-09-19 05:38] LABS: AUTOMATED NEUTROPHIL # 17.9 TH/MM3 (1.8-7.7); BASOPHIL % 0.1 % (0.0-2.0); EOSINOPHIL % 0.1 % (0.0-4.0); HEMATOCRIT 28.3 % (39.0-51.0); HEMO FLAGS DIFF FINAL; LYMPH % 4.8 % (9.0-44.0); LYMPHOCYTE # 0.9 TH/MM3 (1.0-4.8); MEAN CELL VOLUME 76.8 FL (80.0-100.0); MEAN CORPUSCULAR HEMOGLOBIN 25.1 PG (27.0-34.0); MEAN CORPUSCULAR HGB CONC 32.6 % (32.0-36.0); PLATELET COUNT 470 TH/MM3 (150-450); RED BLOOD COUNT 3.68 MIL/MM3 (4.50-5.90); RED CELL DISTRIBUTION WIDTH 21.6 % (11.6-17.2); WHITE BLOOD COUNT 19.7 TH/MM3 (4.0-11.0)
[2017-09-19 06:00] LABS: BICARBONATE 25.8 MEQ/L (21.0-32.0); POTASSIUM 4.7 MEQ/L (3.5-5.1)
--- NOTE | 2017-09-19 07:57 | MB ---
cc: ALONDRA BECK DATE OF CONSULTATION 09/18/2017 DATE OF 1965 HISTORY OF THE PRESENT ILLNESS A 52-year-old male admitted on the with shortness of breath. The patient has been followed in the past by Dr. Fine for mitral valve regurgitation. Underwent transesophageal echocardiogram on 08/14 which showed EF of 50-55%, normal right ventricular size systolic function. The left atrial size was mildly dilated. He had severe mitral regurgitation. The mitral valve regurgitation jet is directly centrally due to the poor leaflet coaptation. No mitral stenosis. No aortic regurgitation or stenosis. The patient during his admission was also found to have bilateral effusions. He underwent a right thoracentesis on September 13 draining 1800 mL of fluid. He then had a pigtail catheter which drained 500 mL of fluid which was removed. The pleural fluid showed no evidence of malignancy. Again on his last admission he was found to have strep bovis bacteremia secondary to a chronic left heel osteomyelitis which grew out Crystal and also strep bovis. He was treated with Diflucan and ceftriaxone. On this admission his blood cultures showed staph epidermis in one bottle which was probably contaminant and the other blood culture was negative. The patient is followed closely by Dr. Renee Garcia. He does have a wound VAC to that left heel. We were consulted to evaluate for mitral valve regurgitation. 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 He has been wheelchair bound due to the wound on his heel. PAST MEDICAL HISTORY Significant for: 1. Prior CVA. 2. Gastroesophageal reflux disease. 3. Severe mitral regurgitation. 4. Hypertension. 5. Diabetes mellitus, uncontrolled. 6. Coronary artery disease. 7. COPD. 8. History of left heel osteomyelitis with partial calcanectomy. 9. Also recent strep bovis in the wound and Crystal. 10. AUSTEN was negative for vegetation. PAST SURGICAL HISTORY Other surgeries include: 1. Recannulization of the left superficial femoral artery with balloon angioplasty and above knee popliteal artery. 2. Dental extraction. 3. He has had left lower extremity debridement. ALLERGIES NO KNOWN ALLERGIES. MEDICATIONS Home meds include: 1. Lipitor. 2. Hydralazine. 3. Amlodipine. 4. Aspirin. 5. Hydrocodone for pain. 6. Gabapentin. 7. He takes Levemir. 8. Humalog insulin. 9. Multivitamin. 10. Finasteride for his prostate. FAMILY HISTORY Noncontributory. SOCIAL HISTORY No tobacco or alcohol. Recently quit smoking. REVIEW OF SYSTEMS As above in the history of present illness. Other 12 systems unremarkable. PHYSICAL EXAMINATION VITAL SIGNS: On exam blood pressure 170/70, heart rate 95, temperature max 98.7. GENERAL: The patient is a 52-year-old male stated age, however appears much older, somewhat disheveled. HEENT: Head is normocephalic, atraumatic. Pupils equal and reactive. Oral mucosa pink, moist. NECK: Supple. No JVD. CARDIOVASCULAR: Heart sounds S1-S2. A 2/6 holosystolic murmur best noted at the apex. LUNGS: Diminished in the bases. Faint expiratory wheeze. ABDOMEN: Soft, obese, somewhat protuberant. Positive bowel sounds. EXTREMITIES: He does have a wound VAC to the left heel. He has very poor, dry scaly, appears fungal to both feet. He has a very faint palpable pulses to both of his feet. LABORATORY DATA His lab work shows a hemoglobin 9.4, hematocrit of 29, white cell count 20. He is currently also on steroids. Platelet count of 499. Chemistry, 134 sodium, potassium 4.3, BUN 65, creatinine 1.26. INR 1.1. Urinalysis is unremarkable. MRSA screen positive. Micro as above. The pleural fluid did not grow any bacteria or fungal. IMAGING Chest x-ray on the 4th showed some diffuse patchy airspace disease. IMPRESSION This is a 52-year-old male with multiple comorbidities with severe mitral regurgitation, EF of 50%. The patient will need to be cleared by infectious disease because of this chronic strep infection in his foot along with the osteomyelitis. He also has acute kidney injury with creatinine of 1.26, uncontrolled diabetes mellitus. His STS score is 1.7. The patient will need also pulmonary function testing and would need to have physical therapy evaluate the patient for his mobility prior to any surgery and further planning as per Dr. Beck. Dictated by DEE Tello I have seen and examined this patient, and reviewed his available medical records. STS risk is as follows: Risk Model and Variables - STS Adult Cardiac Surgery Database Version 2.81 RISK SCORES About the STS Risk Calculator Procedure: MV Repair Risk of Mortality: 3.971% Morbidity or Mortality: 42.263% Long Length of Stay: 25.88% Short Length of Stay: 16.122% Permanent Stroke: 1.589% Prolonged Ventilation: 25.478% DSW Infection: 0.373% Renal Failure: 13.927% Reoperation: 14.009% This does not take into account the fact that he is bedridden on high FiO2 with osteomyelitis. PFTs are pending and he has a long smoking history. He would benefit from physical therapy/rehab prior to scheduling MV repair surgery. If he cannot be stabilized, he may be a candidate for Mitraclip which would have to be performed elsewhere. MD HILARY Rausch/TAMY /4:23 PM /8:01 AM [email or web address]
[2017-09-19] MEDS: MUPIROCIN 2% OINT 1 APPLIC/GM SYR EACH NARE SCH ×2 (09:00→21:00)
[2017-09-19] MEDS: MULTIVITAMINS/MINERALS THERAPEUTIC TAB PO SCH (09:29)
[2017-09-19] MEDS: INSULIN DETEMIR 100 UNITS/ML VIAL SQ SCH ×2 (09:29→21:41)
[2017-09-19] MEDS: FINASTERIDE 5 MG TAB PO SCH (09:29)
[2017-09-19] MEDS: ASCORBIC ACID 500 MG TAB PO SCH (09:29)
[2017-09-19] MEDS: PANTOPRAZOLE SOD 40 MG DELAYED RELEASE TAB PO SCH (09:29)
[2017-09-19] MEDS: amLODIPine BESYLATE 5 MG TAB PO SCH ×2 (09:29→21:40)
[2017-09-19] MEDS: FLUCONAZOLE 200 MG TAB PO SCH (09:29)
[2017-09-19] MEDS: INSULIN ASPART SUPPLEMENTAL SCALE SQ SCH ×4 (09:29→22:06)
[2017-09-19] MEDS: ASPIRIN 81 MG CHEW TAB PO SCH (09:29)
[2017-09-19] MEDS: DOCUSATE SODIUM 50 MG/SENNA 8.6 MG TAB PO SCH ×2 (09:29→21:40)
[2017-09-19] MEDS: SODIUM CHLORIDE 0.9% FLUSH 10 ML FLUSH IV FLUSH SCH ×2 (09:30→21:41)
[2017-09-19] MEDS: GABAPENTIN 300 MG CAP PO SCH ×4 (09:30→21:40)
[2017-09-19] MEDS: LACTULOSE SYRUP 20 GM/30 ML CUP PO PRN (09:30)
[2017-09-19] MEDS: ATORVASTATIN 40 MG TAB PO SCH (09:30)
--- NOTE | 2017-09-19 10:50 | RSPPFT ---
DATE OF PROCEDURE: 09/18/17 COMMENTS: VOLUMES DYNAMIC: FVC and FEV1 severely reduced. FLOWS: FEV1% moderately reduced; FEF 25-75 severely reduced. IMPRESSION: Moderate to severe obstructive ventilatory defect.
--- NOTE | 2017-09-19 11:24 | PD.CARD.PN ---
Subjective Subjective Remarks No events overnight SOB better Objective Medications Current Medications Medications (Trade) Dose Ordered Sig/Sumanth Route Start Time Stop Time Status Last Admin (Norvasc) 5 mg BID PO 09/10/17 21:00 09/19/17 09:29 (Vitamin C) 500 mg DAILY PO 09/11/17 09:00 09/19/17 09:29 (Aspirin Chew) 81 mg DAILY PO 09/11/17 09:00 09/19/17 09:29 (Lipitor) 40 mg DAILY PO 09/11/17 09:00 09/19/17 09:30 (Proscar) 5 mg DAILY PO 09/11/17 09:00 09/19/17 09:29 (Diflucan) 200 mg DAILY PO 09/11/17 09:00 09/19/17 09:29 (Neurontin) 600 mg QID PO 09/10/17 18:00 09/19/17 09:30 (Apresoline) 25 mg Q8HR PO 09/10/17 22:00 09/19/17 04:18 (Theragran M Tab) 1 tab DAILY PO 09/11/17 09:00 09/19/17 09:29 (Nicotine Gum) 4 mg Q2H PRN CHEW 09/10/17 16:15 (Vasotec Inj) 1.25 mg Q6H PRN IV PUSH 09/10/17 16:30 (Apresoline Inj) 10 mg Q6H PRN IV PUSH 09/10/17 16:30 (Catapres) 0.1 mg Q6H PRN PO 09/10/17 16:30 (Albuterol Neb) 2.5 mg Q2HR NEB PRN NEB 09/10/17 16:30 09/18/17 01:55 (NS Flush) 2 ml UNSCH PRN IV FLUSH 09/10/17 16:30 09/11/17 09:47 (NS Flush) 2 ml BID IV FLUSH 09/10/17 21:00 09/19/17 09:30 (Tylenol) 650 mg Q4H PRN PO 09/10/17 16:30 (Zofran Inj) 4 mg Q6H PRN IVP 09/10/17 16:30 (Tylenol) 650 mg Q6H PRN PO 09/10/17 16:30 (Bonaparte 5-325 Mg) 1 tab Q4H PRN PO 09/10/17 16:30 09/17/17 01:00 (Morphine Inj) 1 mg Q3H PRN IV PUSH 09/10/17 16:30 09/18/17 22:29 (Narcan Inj) 0.4 mg UNSCH PRN IV PUSH 09/10/17 16:30 (Alanna-Colace) 1 tab BID PO 09/10/17 21:00 09/19/17 09:29 (Senokot) 17.2 mg Q12H PRN PO 09/10/17 16:30 09/19/17 09:30 (Dulcolax Supp) 10 mg DAILY PRN RECTAL 09/10/17 16:30 (Lactulose Liq) 30 ml DAILY PRN PO 09/10/17 16:30 09/19/17 09:30 (Bonaparte 10-325 Mg) 1 tab Q4H PRN PO 09/10/17 17:00 09/17/17 21:37 (Protonix) 40 mg DAILY PO 09/11/17 21:00 09/19/17 09:29 (SoluMEDROL INJ) 40 mg Q6HR IV PUSH 09/11/17 12:00 09/19/17 04:18 (Ativan Inj) 1 mg Q6H PRN IV PUSH 09/11/17 14:00 09/13/17 17:39 Miscellaneous Information Patient in critical care unit? Ass... Q361D .XX 09/11/17 19:00 (Bactroban Nasal 2% Oint) 1 applic BID EACH NARE 09/13/17 10:30 09/20/17 10:29 09/18/17 08:44 (Tums Chew) 500 mg Q6H PRN CHEW 09/13/17 10:30 (Bumex Inj) 1 mg Q8H IV PUSH 09/15/17 17:00 09/19/17 09:30 (D50w (Vial) Inj) 50 ml UNSCH PRN IV PUSH 09/15/17 14:45 (Glucagon Inj) 1 mg UNSCH PRN OTHER 09/15/17 14:45 (NovoLOG SUPPLEMENTAL SCALE) 1 ACHS SLIDING SCALE SQ 09/15/17 17:00 09/19/17 09:29 (Duoneb Neb) 1 ampule Q6HR NEB NEB 09/16/17 10:00 09/19/17 10:13 Ceftriaxone Sodium 2000 mg/ Sodium Chloride 100 ml @ 200 mls/hr Q24H IV 09/17/17 18:00 09/18/17 16:56 (Levemir Inj) 40 units BID SQ 09/19/17 09:00 09/19/17 09:29 Vital Signs / I&O Vital Signs Date Time Temp Pulse Resp B/P (MAP) Pulse Ox O2 Delivery O2 Flow Rate FiO2 09/19/17 10:13 95 Nasal Cannula 5.00 09/19/17 10:00 91 09/19/17 08:00 90 09/19/17 08:00 98.1 90 14 193/81 (118) 100 09/19/17 07:00 94 Nasal Cannula 4.00 09/19/17 06:00 90 09/19/17 05:04 94 Nasal Cannula 6.00 09/19/17 04:00 91 09/19/17 04:00 98.3 91 17 194/75 (114) 93 09/19/17 02:00 85 09/19/17 00:00 98.4 89 16 161/75 (103) 95 09/19/17 00:00 95 09/18/17 22:00 92 09/18/17 21:37 95 Nasal Cannula 4.00 09/18/17 20:00 98.3 92 20 163/71 (101) 95 09/18/17 20:00 92 09/18/17 19:00 Nasal Cannula 4.00 09/18/17 18:00 90 09/18/17 16:00 79 09/18/17 16:00 98.4 81 12 128/60 (82) 95 09/18/17 14:00 91 09/18/17 13:16 16 09/18/17 13:00 95 09/18/17 12:00 98.7 95 15 171/72 (105) 100 I/O 09/18/17 09/18/17 09/18/17 09/19/17 09/19/17 09/19/17 07:00 15:00 23:00 07:00 15:00 23:00 Intake Total 480 ml 820 ml 300 ml Output Total 1950 ml 1975 ml 1750 ml Balance -1470 ml -1155 ml -1450 ml Intake Oral 480 ml 720 ml 300 ml IV Total 100 ml Output Urine Total 1950 ml 1975 ml 1750 ml Stool Total 0 ml 0 ml Physical Exam GENERAL: NAD, AAOx3 SKIN: Warm and dry. HEAD: Atraumatic. Normocephalic. EYES: Pupils equal and round. No scleral icterus. No injection or drainage. ENT: No nasal bleeding or discharge. Mucous membranes pink and moist. NECK: Trachea midline. No JVD. CARDIOVASCULAR: Regular rate and rhythm. 2/6 holosystolic murmur at the apex RESPIRATORY: No accessory muscle use. Decreased breath sounds bilaterally GASTROINTESTINAL: Abdomen soft, non-tender, nondistended. Hepatic and splenic margins not palpable. MUSCULOSKELETAL: Extremities without clubbing, cyanosis, or edema. No obvious deformities. Right radial no hematoma, neurovascularly intact distally. Right brachial no ecchymosis NEUROLOGICAL: Awake and alert. No obvious cranial nerve deficits. Motor grossly within normal limits. Five out of 5 muscle strength in the arms and legs. Normal speech. PSYCHIATRIC: Appropriate mood and affect; insight and judgment normal. Laboratory Laboratory Tests Test 09/19/17 04:17 White Blood Count 19.7 TH/MM3 Red Blood Count 3.68 MIL/MM3 Hemoglobin 9.2 GM/DL Hematocrit 28.3 % Mean Corpuscular Volume 76.8 FL Mean Corpuscular Hemoglobin 25.1 PG Mean Corpuscular Hemoglobin Concent 32.6 % Red Cell Distribution Width 21.6 % Platelet Count 470 TH/MM3 Mean Platelet Volume 8.9 FL Neutrophils (%) (Auto) 91.0 % Lymphocytes (%) (Auto) 4.8 % Monocytes (%) (Auto) 4.0 % Eosinophils (%) (Auto) 0.1 % Basophils (%) (Auto) 0.1 % Neutrophils # (Auto) 17.9 TH/MM3 Lymphocytes # (Auto) 0.9 TH/MM3 Monocytes # (Auto) 0.8 TH/MM3 Eosinophils # (Auto) 0.0 TH/MM3 Basophils # (Auto) 0.0 TH/MM3 CBC Comment DIFF FINAL Differential Comment Blood Urea Nitrogen 57 MG/DL Creatinine 1.27 MG/DL Random Glucose 179 MG/DL Calcium Level 8.4 MG/DL Sodium Level 132 MEQ/L Potassium Level 4.7 MEQ/L Chloride Level 96 MEQ/L Carbon Dioxide Level 25.8 MEQ/L Anion Gap 10 MEQ/L Estimat Glomerular Filtration Rate 59 ML/MIN Assessment and Plan Problem List: (1) Severe mitral regurgitation ICD Codes: I34.0 - Nonrheumatic mitral (valve) insufficiency Status: Acute (2) Hospital-acquired pneumonia ICD Codes: J18.9 - Pneumonia, unspecified organism Status: Acute (3) HTN (hypertension) ICD Codes: I10 - Essential (primary) hypertension Status: Chronic (4) COPD exacerbation ICD Codes: J44.1 - Chronic obstructive pulmonary disease with (acute) exacerbation (5) STAN (acute kidney injury) ICD Codes: N17.9 - Acute kidney failure, unspecified Assessment and Plan 1) Respiratory failure secondary to severe mitral regurgitation 2) CT surgery evaluation for mitral valve repair Discussed with Dr. Beck 3) No significant CAD on cath 4) Con't diuresis 5) HTN, will plan to increase meds 6) Will need ID clearance from his left foot Marty Fine DO Sep 19, 2017 11:24
[2017-09-19] MEDS: MORPHINE SULFATE 4 MG/ML INJ IV PUSH PRN ×2 (12:48→21:56)
--- NOTE | 2017-09-19 15:18 | HHI.PR ---
Subjective Remarks deferred entry - patient seen at 12:10 pm Patient states breathing is better. Patient now on nasal canula. Denies cp bp very elevated c/o of some back pain. Objective Vitals Vital Signs Date Time Temp Pulse Resp B/P (MAP) Pulse Ox O2 Delivery O2 Flow Rate FiO2 09/19/17 12:53 20 09/19/17 10:13 95 Nasal Cannula 5.00 09/19/17 10:00 91 09/19/17 08:00 90 09/19/17 08:00 98.1 90 14 193/81 (118) 100 09/19/17 07:00 94 Nasal Cannula 4.00 09/19/17 06:00 90 09/19/17 05:04 94 Nasal Cannula 6.00 09/19/17 04:00 91 09/19/17 04:00 98.3 91 17 194/75 (114) 93 09/19/17 02:00 85 09/19/17 00:00 98.4 89 16 161/75 (103) 95 09/19/17 00:00 95 09/18/17 22:00 92 09/18/17 21:37 95 Nasal Cannula 4.00 09/18/17 20:00 98.3 92 20 163/71 (101) 95 09/18/17 20:00 92 09/18/17 19:00 Nasal Cannula 4.00 09/18/17 18:00 90 09/18/17 16:00 79 09/18/17 16:00 98.4 81 12 128/60 (82) 95 I/O 09/18/17 09/18/17 09/18/17 09/19/17 09/19/17 09/19/17 07:00 15:00 23:00 07:00 15:00 23:00 Intake Total 480 ml 820 ml 300 ml Output Total 1950 ml 1975 ml 1750 ml Balance -1470 ml -1155 ml -1450 ml Intake Oral 480 ml 720 ml 300 ml IV Total 100 ml Output Urine Total 1950 ml 1975 ml 1750 ml Stool Total 0 ml 0 ml Result Diagram: 09/19/1741609/19/17416 Objective Remarks GENERAL: This is a well-nourished, well-developed critically ill patient, on nasal canula, nad SKIN: No rashes, ecchymoses or lesions. Very pale. CARDIOVASCULAR: Regular rate and rhythm with a systolic murmur, no rubs or gallops RESPIRATORY: BL bibasilar crackles at both bases, no wheezing or rhonchi. GASTROINTESTINAL: Abdomen soft, non-tender, nondistended. No guarding. MUSCULOSKELETAL: Extremities without clubbing, cyanosis, but with bilateral lower extremity pitting edema. Left heel with wound vac NEUROLOGICAL: Alert and oriented Cranial nerves II through XII intact. Motor and sensory grossly within normal limits. Five out of 5 muscle strength in all muscle groups. Normal speech. Procedures BL pigatil catheter chest placement on 09/14 Medications and IVs Current Medications Medications (Trade) Dose Ordered Sig/Sumanth Route Start Time Stop Time Status Last Admin (Norvasc) 5 mg BID PO 09/10/17 21:00 09/19/17 09:29 (Vitamin C) 500 mg DAILY PO 09/11/17 09:00 09/19/17 09:29 (Aspirin Chew) 81 mg DAILY PO 09/11/17 09:00 09/19/17 09:29 (Lipitor) 40 mg DAILY PO 09/11/17 09:00 09/19/17 09:30 (Proscar) 5 mg DAILY PO 09/11/17 09:00 09/19/17 09:29 (Diflucan) 200 mg DAILY PO 09/11/17 09:00 09/19/17 09:29 (Neurontin) 600 mg QID PO 09/10/17 18:00 09/19/17 12:31 (Theragran M Tab) 1 tab DAILY PO 09/11/17 09:00 09/19/17 09:29 (Nicotine Gum) 4 mg Q2H PRN CHEW 09/10/17 16:15 (Vasotec Inj) 1.25 mg Q6H PRN IV PUSH 09/10/17 16:30 (Apresoline Inj) 10 mg Q6H PRN IV PUSH 09/10/17 16:30 09/19/17 12:48 (Catapres) 0.1 mg Q6H PRN PO 09/10/17 16:30 (Albuterol Neb) 2.5 mg Q2HR NEB PRN NEB 09/10/17 16:30 09/18/17 01:55 (NS Flush) 2 ml UNSCH PRN IV FLUSH 09/10/17 16:30 09/11/17 09:47 (NS Flush) 2 ml BID IV FLUSH 09/10/17 21:00 09/19/17 09:30 (Tylenol) 650 mg Q4H PRN PO 09/10/17 16:30 (Zofran Inj) 4 mg Q6H PRN IVP 09/10/17 16:30 (Tylenol) 650 mg Q6H PRN PO 09/10/17 16:30 (Waldron 5-325 Mg) 1 tab Q4H PRN PO 09/10/17 16:30 09/17/17 01:00 (Morphine Inj) 1 mg Q3H PRN IV PUSH 09/10/17 16:30 09/19/17 12:48 (Narcan Inj) 0.4 mg UNSCH PRN IV PUSH 09/10/17 16:30 (Alanna-Colace) 1 tab BID PO 09/10/17 21:00 09/19/17 09:29 (Senokot) 17.2 mg Q12H PRN PO 09/10/17 16:30 09/19/17 09:30 (Dulcolax Supp) 10 mg DAILY PRN RECTAL 09/10/17 16:30 (Lactulose Liq) 30 ml DAILY PRN PO 09/10/17 16:30 09/19/17 09:30 (Waldron 10-325 Mg) 1 tab Q4H PRN PO 09/10/17 17:00 09/17/17 21:37 (Protonix) 40 mg DAILY PO 09/11/17 21:00 09/19/17 09:29 (SoluMEDROL INJ) 40 mg Q6HR IV PUSH 09/11/17 12:00 09/19/17 12:31 (Ativan Inj) 1 mg Q6H PRN IV PUSH 09/11/17 14:00 09/13/17 17:39 Miscellaneous Information Patient in critical care unit? Ass... Q361D .XX 09/11/17 19:00 (Bactroban Nasal 2% Oint) 1 applic BID EACH NARE 09/13/17 10:30 09/20/17 10:29 09/18/17 08:44 (Tums Chew) 500 mg Q6H PRN CHEW 09/13/17 10:30 (Bumex Inj) 1 mg Q8H IV PUSH 09/15/17 17:00 09/19/17 09:30 (D50w (Vial) Inj) 50 ml UNSCH PRN IV PUSH 09/15/17 14:45 (Glucagon Inj) 1 mg UNSCH PRN OTHER 09/15/17 14:45 (NovoLOG SUPPLEMENTAL SCALE) 1 ACHS SLIDING SCALE SQ 09/15/17 17:00 09/19/17 12:31 (Duoneb Neb) 1 ampule Q6HR NEB NEB 09/16/17 10:00 09/19/17 10:13 Ceftriaxone Sodium 2000 mg/ Sodium Chloride 100 ml @ 200 mls/hr Q24H IV 09/17/17 18:00 09/18/17 16:56 (Levemir Inj) 40 units BID SQ 09/19/17 09:00 09/19/17 09:29 (Apresoline) 50 mg Q8HR PO 09/19/17 14:00 09/19/17 12:47 Urinary Catheter: No Vascular Central Line Catheter: No A/P Problem List: (1) Sepsis ICD Code: A41.9 - Sepsis, unspecified organism Status: Acute (2) Hospital-acquired pneumonia ICD Code: J18.9 - Pneumonia, unspecified organism Status: Acute (3) Diabetes mellitus with hyperglycemia ICD Code: E11.65 - Type 2 diabetes mellitus with hyperglycemia (4) STAN (acute kidney injury) ICD Code: N17.9 - Acute kidney failure, unspecified (5) COPD exacerbation ICD Code: J44.1 - Chronic obstructive pulmonary disease with (acute) exacerbation (6) HTN (hypertension) ICD Code: I10 - Essential (primary) hypertension Status: Chronic (7) Severe mitral regurgitation ICD Code: I34.0 - Nonrheumatic mitral (valve) insufficiency Status: Acute Assessment and Plan This is a 52-year-old male with a history of COPD, diabetes mellitus, chronic pain, arthritis, CVA, hyperlipidemia, GERD, hypertension and neuropathy. He presents to the emergency department complaining of shortness of breath for the past 2 days associated with nonproductive cough and chills. Chest x-ray shows consolidation in the right lung base and has been started Zithromax and Zosyn. 1. Acute hypoxemic respiratory failure. Failure likely a combination of pneumonia, COPD exacerbation and possibly some degree of congestive heart failure. Patient status post bilateral pigtail catheter placement on 09/14 for drainage of pleural effusions. This was discussed with Dr. Felton from intensive care medicine. Echocardiogram performed on 08/11/17 showed a normal ejection fraction the range of 55-60%.AUSTEN showed severe mitral valve regurgitation, however Dr. Fine from cardiology determined that the patient was not a candidate for possible surgical intervention at that time. Patient still requiring BiPAP. Chest x-ray obtained today (09/15) shows minimal increased parenchymal changes in the right lung. Continue IV antibiotics as per ID recommendations. The patient currently on cefepime IV, azithromycin IV and Linezolid. Continue Bi pap and taper oxygen as tolerated. Continue Bumex - 1 mg 3 x dy. 09/16 Consult cardiology, check cardiac enzymes. Case discussed with Dr Felton from intensive care medicine. The patient will likely need a mitrat valve replacement given degree of refractory heart failure. 09/17 appreciate cardiology recommendations. Cardiology recommends at this time mitral valve repair versus replacement due to refractory heart failure. Possible cardiac catheterization in am. 09/19 Cardiac cath - no cad. CT surgery consulted for Mitral valve repair. Patient's respiratory failure improving, patient down to nasal canula. 2. Sepsis secondary to hospital acquired pneumonia. Lactic acid 1.3. Follow-up blood cultures with staph epi in 1 out of 4 bottles. Negative urinary Legionella and pneumococcal antigen. Still meets criteria for sepsis \leukocytosis, tachycardia. 09/19 Continue antibiotics as per ID recommendations. Continue to provide supplemental oxygen and BiPAP as needed to keep oxygen saturation more than 92% . Cureently on IV Rocephin. SP IV azithromycin. WBC trending down, continue to monitor cbc. 3. Left heel ulcer stage II. osteomyelitis, Strep Bovis Patient status post left partial calcanectomy and Achilles department. Podiatry has been consulted. The patient's left heel had been treated for osteomyelitis with IM Rocephin and Diflucan. Podiatry consulted. The patient was seen by Dr. Ysabel Echols. Recommended continuation of wound VAC for increased granulation tissue. (M/W/F). Continue offloading of this I with pillow boots. 4. Diabetes mellitus with hyperglycemia. Blood sugars are very elevated and uncontrolled. The patient insulin sliding scale was rated to a medium dose and the patient was started on prandial insulin. 09/14 blood sugar still uncontrolled in the 200s. Continue Levemir at 40 units subcutaneous twice a day. I will increase the dose of insulin NovoLog medium and start the patient on prandial insulin. 09/16 Blood sugars stable. Continue management as above. 09/18 Decrease insulin Levemir to 1/2 the dose while npo. 09/19 Blood sugars uncontrolled and elevated. Levemir dose increased tpo 40 units SQ BID. 5. Uncontrolled Hypertension. 09/14 BP stable. Continue amlodipine 5 Mg by mouth twice a day with clonidine as needed. 09/15 BP elevated into the 160s. This likely secondary to steroid use. I will increase amlodipine 5 mg to 10 mg by mouth daily. 09/16 BP with improved control. Continue amlodipine 10 mg po daily. 09/18 Agree with increasing Hydralazine to 50 mg po Q 8 hrs. 6. Acute kidney injury. Nonoliguric. 09/19 Creatinine stable at 1.2. Continue to monitor bun and creatinine, strict I's and O's. FEN. IVF and TF DVT prophylaxis with subcutaneous heparin Discharge Planning Patient with acute on chronic hypoxemic respiratory failure, currently on BiPAP. Continue to monitor in intensive care unit. Problem Qualifiers (1) Sepsis: Qualified Codes: A41.9 - Sepsis, unspecified organism Boo Zamudio MD Sep 19, 2017 15:18
[2017-09-19] MEDS: cefTRIAXone INJ 2,000 MG in SODIUM CHLORIDE 0.9% INJ 100 ML IV SCH (16:29)
--- NOTE | 2017-09-19 18:59 | HHI.PR ---
Subjective Remarks 52 YOWM with RF,Pneumonia, Sepsis mild distress no Fever Chest tubes removed had cardiac cath, sig MR On4 LNC Feels much better Objective Vital Signs Vital Signs Date Time Temp Pulse Resp B/P (MAP) Pulse Ox O2 Delivery O2 Flow Rate FiO2 09/19/17 18:00 96 09/19/17 16:00 91 09/19/17 16:00 98.4 91 13 158/72 (100) 96 09/19/17 15:00 91 09/19/17 14:00 92 09/19/17 12:53 20 09/19/17 12:00 91 09/19/17 12:00 98.2 91 17 150/57 (88) 97 09/19/17 10:13 95 Nasal Cannula 5.00 09/19/17 10:00 91 09/19/17 08:00 90 09/19/17 08:00 98.1 90 14 193/81 (118) 100 09/19/17 07:00 94 Nasal Cannula 4.00 09/19/17 06:00 90 09/19/17 05:04 94 Nasal Cannula 6.00 09/19/17 04:00 91 09/19/17 04:00 98.3 91 17 194/75 (114) 93 09/19/17 02:00 85 09/19/17 00:00 98.4 89 16 161/75 (103) 95 09/19/17 00:00 95 09/18/17 22:00 92 09/18/17 21:37 95 Nasal Cannula 4.00 09/18/17 20:00 98.3 92 20 163/71 (101) 95 09/18/17 20:00 92 09/18/17 19:00 Nasal Cannula 4.00 I/O 09/18/17 09/18/17 09/18/17 09/19/17 09/19/17 09/19/17 07:00 15:00 23:00 07:00 15:00 23:00 Intake Total 480 ml 820 ml 300 ml Output Total 1950 ml 1975 ml 1750 ml 2400 ml Balance -1470 ml -1155 ml -1450 ml -2400 ml Intake Oral 480 ml 720 ml 300 ml IV Total 100 ml Output Urine Total 1950 ml 1975 ml 1750 ml 2400 ml Stool Total 0 ml 0 ml Result Diagram: 09/19/17 0417 09/19/17 0417 Objective Remarks GENERAL: MBMN WM on BIPAP SKIN: Warm and dry. HEAD: Normocephalic. EYES: No scleral icterus. No injection or drainage. NECK: Supple, trachea midline. No JVD or lymphadenopathy. CARDIOVASCULAR: Regular rate and rhythm without murmurs, gallops, or rubs. RESPIRATORY: Breath sounds equal bilaterally. No accessory muscle use. GASTROINTESTINAL: Abdomen soft, non-tender, nondistended. MUSCULOSKELETAL: No cyanosis, or edema. BACK: Nontender without obvious deformity. No CVA tenderness. A/P Assessment and Plan Resp Failure, improved COPD Sepsis Pneumonia DM Severe Mitral regurgitation PLAN Supplement 02 with NC Cont Abx Aerosol nebs IV Steroids Dariel Landry MD Sep 19, 2017 18:59
[2017-09-19] MEDS: ACETAMINOPHEN/HYDROcodone 325 MG/10 MG TAB PO PRN (21:57)
[2017-09-20] VITALS (19 sets, daily range): BP systolic 132–157; BP diastolic 62–71; PULSE 77–93; RESP 10–29; TEMP 98–98.8; O2SAT 89–99
[2017-09-20] MEDS: BUMETANIDE INJ 1 MG/4 ML VIAL IV PUSH SCH ×3 (01:50→17:56)
[2017-09-20] MEDS: MORPHINE SULFATE 4 MG/ML INJ IV PUSH PRN ×5 (01:58→22:37)
[2017-09-20] MEDS: RESP: ALBUTEROL 2.5 MG/IPRATROPIUM 0.5 MG NEB (SCH) NEB ×2 (03:54→07:57)
[2017-09-20] MEDS: hydrALAZINE HCL 25 MG TAB PO SCH ×3 (04:17→20:34)
[2017-09-20] MEDS: methylPREDNISolone SOD SUCC 40 MG/1 ML VIAL IV PUSH SCH ×3 (04:19→20:33)
[2017-09-20] MEDS: INSULIN ASPART SUPPLEMENTAL SCALE SQ SCH ×4 (08:00→20:57)
[2017-09-20] MEDS: MUPIROCIN 2% OINT 1 APPLIC/GM SYR EACH NARE SCH (09:00)
[2017-09-20] MEDS: INSULIN DETEMIR 100 UNITS/ML VIAL SQ SCH ×2 (09:00→20:34)
[2017-09-20] MEDS: SODIUM CHLORIDE 0.9% FLUSH 10 ML FLUSH IV FLUSH SCH ×2 (09:00→20:33)
[2017-09-20] MEDS: MULTIVITAMINS/MINERALS THERAPEUTIC TAB PO SCH (09:25)
[2017-09-20] MEDS: FINASTERIDE 5 MG TAB PO SCH (09:25)
[2017-09-20] MEDS: amLODIPine BESYLATE 5 MG TAB PO SCH ×2 (09:25→20:33)
[2017-09-20] MEDS: FLUCONAZOLE 200 MG TAB PO SCH (09:25)
[2017-09-20] MEDS: PANTOPRAZOLE SOD 40 MG DELAYED RELEASE TAB PO SCH (09:25)
[2017-09-20] MEDS: DOCUSATE SODIUM 50 MG/SENNA 8.6 MG TAB PO SCH ×2 (09:25→20:33)
[2017-09-20] MEDS: ASCORBIC ACID 500 MG TAB PO SCH (09:25)
[2017-09-20] MEDS: GABAPENTIN 300 MG CAP PO SCH ×4 (09:25→20:33)
[2017-09-20] MEDS: ASPIRIN 81 MG CHEW TAB PO SCH (09:26)
[2017-09-20] MEDS: ATORVASTATIN 40 MG TAB PO SCH (09:26)
--- NOTE | 2017-09-20 13:58 | HHI.PR ---
Subjective Remarks This is a pleasant 52 y/o male with severe Mitral regurgitation, EF 50%, who is been seen by Cardiothoracic Surgery recommended for Mitral Valve repair once cleared by ID specialist. Seen in his bedroom discussed with nurse Miss Benítez has constipation, patient complaint of Blurry vision and Constipation. no nausea , vomit or diarrhea. Objective Vital Signs Date Time Temp Pulse Resp B/P (MAP) Pulse Ox O2 Delivery O2 Flow Rate FiO2 09/20/17 12:00 89 09/20/17 12:00 98.0 89 29 145/64 (91) 90 09/20/17 11:00 90 09/20/17 10:00 90 09/20/17 09:00 93 09/20/17 08:00 88 09/20/17 08:00 98.3 88 10 157/71 (99) 99 09/20/17 07:57 Nasal Cannula 4.00 09/20/17 07:00 96 Nasal Cannula 6.00 09/20/17 07:00 91 09/20/17 06:00 80 09/20/17 04:00 98.4 77 12 145/69 (94) 95 09/20/17 04:00 77 09/20/17 02:00 89 09/20/17 00:00 98.8 80 11 132/62 (85) 95 09/20/17 00:00 80 09/19/17 22:35 97 Nasal Cannula 4.00 09/19/17 22:01 16 09/19/17 22:00 90 09/19/17 20:00 91 09/19/17 20:00 98.6 91 15 167/74 (105) 100 09/19/17 19:00 96 Nasal Cannula 6.00 09/19/17 18:00 96 09/19/17 16:00 91 09/19/17 16:00 98.4 91 13 158/72 (100) 96 09/19/17 15:00 91 09/19/17 14:00 92 I/O 09/19/17 09/19/17 09/19/17 09/20/17 09/20/17 09/20/17 07:00 15:00 23:00 07:00 15:00 23:00 Intake Total 300 ml 1440 ml 650 ml Output Total 1750 ml 3400 ml 2350 ml Balance -1450 ml -1960 ml -1700 ml Intake Oral 300 ml 1440 ml 650 ml Output Urine Total 1750 ml 3400 ml 2350 ml Stool Total 0 ml 0 ml Result Diagram: 09/19/17 0417 09/19/17 0417 Imaging Last Impressions Chest X-Ray 09/16/17 0000 Signed Impressions: Service Date/Time: Saturday, September 16, 2017 11:49 - CONCLUSION: 1. Right chest tube out. No pneumothorax. 2. Patchy diffuse bilateral airspace disease without significant change. Jose Francisco Rodriguez MD Procedures BL pigatil catheter chest placement on 09/14 Other Results Laboratory Tests Test 09/10/17 14:30 09/10/17 16:10 09/11/17 08:37 09/11/17 09:25 Prothrombin Time 12.0 SEC Prothromb Time International Ratio 1.1 RATIO Activated Partial Thromboplast Time 31.3 SEC B-Type Natriuretic Peptide 244 PG/ML Lactic Acid Level 1.3 mmol/L Blood Gas Liter Flow 15 L/M Nasal Screen MRSA (PCR) MRSA DETECTED Test 09/11/17 14:40 09/13/17 13:46 09/13/17 14:52 09/17/17 19:00 Urine Color YELLOW Urine Turbidity HAZY Urine pH 6.0 Urine Specific [place] 1.016 Urine Protein 300 mg/dL Urine Glucose (UA) 1000 mg/dL Urine Ketones NEG mg/dL Urine Occult Blood NEG Urine Nitrite NEG Urine Bilirubin NEG Urine Urobilinogen LESS THAN 2.0 MG/DL Urine Leukocyte Esterase NEG Urine RBC 2 /hpf Urine WBC 1 /hpf Urine Amorphous Sediment RARE Microscopic Urinalysis Comment CATH-CULT NOT IND Body Fluid Amylase Source PLEURAL Body Fluid Amylase 3 U/L Pleural Fluid pH 8.0 Pleural Fluid WBC 109 /MM3 Pleural Fluid RBC 1195 /MM3 Pleural Fluid Neutrophils 7 % Pleural Fluid Lymphocytes 27 % Pleural Fluid Monocytes 43 % Pleural Fluid Histiocytes 7 % Pleural Fluid Mesothelial Cells 16 % Pleural Fluid Comment Pleural Fluid Total Protein 1.4 GM/DL Pleural Fluid LDH 90 U/L Pleural Fluid Glucose 144 MG/DL Blood Gas Puncture Site RT RADIAL Blood Gas Patient Temperature 98.6 Blood Gas HCO3 22 mmol/L Blood Gas Base Excess -2.5 mmol/L Blood Gas Oxygen Saturation 90 % Arterial Blood pH 7.40 Arterial Blood Partial Pressure CO2 35 mmHg Arterial Blood Partial Pressure O2 70 mmHg Arterial Blood Oxygen Content 11.2 Vol % Arterial Blood Carboxyhemoglobin 1.2 % Arterial Blood Methemoglobin 1.1 % Blood Gas Hemoglobin 8.8 G/DL Oxygen Delivery Device BiPAP Blood Gas Ventilator Setting [id number]/[id number] Blood Gas Inspired Oxygen 80 % Erythrocyte Sedimentation Rate 8 mm/hr Test 09/18/17 09:30 09/19/17 04:17 Blood Urea Nitrogen 65 MG/DL 57 MG/DL Creatinine 1.26 MG/DL 1.27 MG/DL Random Glucose 191 MG/DL 179 MG/DL Total Protein 5.9 GM/DL Albumin 2.7 GM/DL Calcium Level 8.4 MG/DL 8.4 MG/DL Phosphorus Level 3.3 MG/DL Magnesium Level 2.3 MG/DL Alkaline Phosphatase 112 U/L Aspartate Amino Transf (AST/SGOT) 28 U/L Alanine Aminotransferase (ALT/SGPT) 86 U/L Total Bilirubin 0.2 MG/DL Sodium Level 134 MEQ/L 132 MEQ/L Potassium Level 4.3 MEQ/L 4.7 MEQ/L Chloride Level 99 MEQ/L 96 MEQ/L Carbon Dioxide Level 26.4 MEQ/L 25.8 MEQ/L White Blood Count 19.7 TH/MM3 Red Blood Count 3.68 MIL/MM3 Hemoglobin 9.2 GM/DL Hematocrit 28.3 % Mean Corpuscular Volume 76.8 FL Mean Corpuscular Hemoglobin 25.1 PG Mean Corpuscular Hemoglobin Concent 32.6 % Red Cell Distribution Width 21.6 % Platelet Count 470 TH/MM3 Mean Platelet Volume 8.9 FL Neutrophils (%) (Auto) 91.0 % Lymphocytes (%) (Auto) 4.8 % Monocytes (%) (Auto) 4.0 % Eosinophils (%) (Auto) 0.1 % Basophils (%) (Auto) 0.1 % Neutrophils # (Auto) 17.9 TH/MM3 Lymphocytes # (Auto) 0.9 TH/MM3 Monocytes # (Auto) 0.8 TH/MM3 Eosinophils # (Auto) 0.0 TH/MM3 Basophils # (Auto) 0.0 TH/MM3 CBC Comment DIFF FINAL Differential Comment Anion Gap 10 MEQ/L Estimat Glomerular Filtration Rate 59 ML/MIN Objective Remarks GENERAL: Well developed SKIN: No rashes, ecchymoses or lesions. Very pale. CARDIOVASCULAR: Regular rate and rhythm with a systolic murmur, no rubs or gallops RESPIRATORY: BL bibasilar crackles at both bases, no wheezing or rhonchi. GASTROINTESTINAL: Abdomen soft, non-tender, nondistended. No guarding. MUSCULOSKELETAL: Extremities without clubbing, cyanosis, but with bilateral lower extremity pitting edema. Left heel with wound vac NEUROLOGICAL: Alert and oriented Cranial nerves II through XII intact. Medications and IVs Current Medications Medications (Trade) Dose Ordered Sig/Sumanth Route Start Time Stop Time Status Last Admin (Norvasc) 5 mg BID PO 09/10/17 21:00 09/20/17 09:25 (Vitamin C) 500 mg DAILY PO 09/11/17 09:00 09/20/17 09:25 (Aspirin Chew) 81 mg DAILY PO 09/11/17 09:00 09/20/17 09:26 (Lipitor) 40 mg DAILY PO 09/11/17 09:00 09/20/17 09:26 (Proscar) 5 mg DAILY PO 09/11/17 09:00 09/20/17 09:25 (Diflucan) 200 mg DAILY PO 09/11/17 09:00 09/20/17 09:25 (Neurontin) 600 mg QID PO 09/10/17 18:00 09/20/17 09:25 (Theragran M Tab) 1 tab DAILY PO 09/11/17 09:00 09/20/17 09:25 (Nicotine Gum) 4 mg Q2H PRN CHEW 09/10/17 16:15 (Vasotec Inj) 1.25 mg Q6H PRN IV PUSH 09/10/17 16:30 (Apresoline Inj) 10 mg Q6H PRN IV PUSH 09/10/17 16:30 09/19/17 12:48 (Catapres) 0.1 mg Q6H PRN PO 09/10/17 16:30 (Albuterol Neb) 2.5 mg Q2HR NEB PRN NEB 09/10/17 16:30 09/18/17 01:55 (NS Flush) 2 ml UNSCH PRN IV FLUSH 09/10/17 16:30 09/11/17 09:47 (NS Flush) 2 ml BID IV FLUSH 09/10/17 21:00 09/20/17 09:00 (Tylenol) 650 mg Q4H PRN PO 09/10/17 16:30 (Zofran Inj) 4 mg Q6H PRN IVP 09/10/17 16:30 (Tylenol) 650 mg Q6H PRN PO 09/10/17 16:30 ([place] 5-325 Mg) 1 tab Q4H PRN PO 09/10/17 16:30 09/17/17 01:00 (Morphine Inj) 1 mg Q3H PRN IV PUSH 09/10/17 16:30 09/20/17 09:32 (Narcan Inj) 0.4 mg UNSCH PRN IV PUSH 09/10/17 16:30 (Alanna-Colace) 1 tab BID PO 09/10/17 21:00 09/20/17 09:25 (Senokot) 17.2 mg Q12H PRN PO 09/10/17 16:30 09/19/17 09:30 (Dulcolax Supp) 10 mg DAILY PRN RECTAL 09/10/17 16:30 (Lactulose Liq) 30 ml DAILY PRN PO 09/10/17 16:30 09/19/17 09:30 ([place] 10-325 Mg) 1 tab Q4H PRN PO 09/10/17 17:00 09/19/17 21:57 (Protonix) 40 mg DAILY PO 09/11/17 21:00 09/20/17 09:25 (Ativan Inj) 1 mg Q6H PRN IV PUSH 09/11/17 14:00 09/13/17 17:39 Miscellaneous Information Patient in critical care unit? Ass... Q361D .XX 09/11/17 19:00 (Tums Chew) 500 mg Q6H PRN CHEW 09/13/17 10:30 (Bumex Inj) 1 mg Q8H IV PUSH 09/15/17 17:00 09/20/17 09:25 (D50w (Vial) Inj) 50 ml UNSCH PRN IV PUSH 09/15/17 14:45 (Glucagon Inj) 1 mg UNSCH PRN OTHER 09/15/17 14:45 (NovoLOG SUPPLEMENTAL SCALE) 1 ACHS SLIDING SCALE SQ 09/15/17 17:00 09/19/17 22:06 Ceftriaxone Sodium 2000 mg/ Sodium Chloride 100 ml @ 200 mls/hr Q24H IV 09/17/17 18:00 09/19/17 16:29 (Levemir Inj) 40 units BID SQ 09/19/17 09:00 09/20/17 09:00 (Apresoline) 50 mg Q8HR PO 09/19/17 14:00 09/20/17 04:17 (SoluMEDROL INJ) 40 mg Q8HR IV PUSH 09/19/17 22:00 09/20/17 04:19 A/P Assessment and Plan This is a pleasant 52 y/o male with COPD, DM II, chronic pain syndrome, OA, CVA, , Hyperlipidemia, GERD, Hypertension and Neuropathy seen in ER due to Shortness of breath. Chest x-ray shows consolidation in the right lung base and has been started Zithromax and Zosyn. 1. Acute Hypoxemic Respiratory Failure Combination of Pneumonia and COPD Exacerbation and possibly Congestive Heart Failure, Patient status post bilateral pigtail catheter placement on 09/14 for drainage of pleural effusions. Echocardiogram performed on 08/11/17 showed a normal ejection fraction the range of 55-60%.AUSTEN showed severe mitral valve regurgitation, however Dr. Fine from cardiology determined that the patient was not a candidate for possible surgical intervention.client relation specialist following , has Refractory heart failure and Cardiology recommended Mitral Valve repair, status post Cardiac Cath 09/19 CT Surgeon recommended Mitral Valve repair. asked for clearance by ID specialist 2. Sepsis secondary to HAP Negative Urinary Legionella and Pneumococcal antigen , ID following, BiPAP as needed, actually on Rocephin and Azithromycin 3. Left Heel ulcer stage II, Osteomyelitis Strep Bovis, status post left partial calcanectomy and Achilles department. Podiatry has been consulted. The patient's left heel had been treated for osteomyelitis with IM Rocephin and Diflucan. Podiatry specialist following. 4. DM II continue sliding scale and long lasting insulin Levemir. 40 units BID. 5. Hypertension controlled. 6. Constipation started on lactulose and Glycerine suppository. Transfer to Medical Floor. DVT prophylaxis with subcutaneous heparin Discharge Planning once cleared by specialists. Uriah Worrell MD Sep 20, 2017 1:58 pm
[2017-09-20] MEDS ORDERED: GLYCERIN ADULT 2 GM SUPP RECTAL ONE (16:30)
[2017-09-20] MEDS ORDERED: LACTULOSE SYRUP 20 GM/30 ML CUP PO ONE (16:30)
--- NOTE | 2017-09-20 17:03 | PD.CARD.PN ---
Subjective Subjective Remarks No events overnight SOB better Objective Medications Current Medications Medications (Trade) Dose Ordered Sig/Sumanth Route Start Time Stop Time Status Last Admin (Norvasc) 5 mg BID PO 09/10/17 21:00 09/20/17 09:25 (Vitamin C) 500 mg DAILY PO 09/11/17 09:00 09/20/17 09:25 (Aspirin Chew) 81 mg DAILY PO 09/11/17 09:00 09/20/17 09:26 (Lipitor) 40 mg DAILY PO 09/11/17 09:00 09/20/17 09:26 (Proscar) 5 mg DAILY PO 09/11/17 09:00 09/20/17 09:25 (Diflucan) 200 mg DAILY PO 09/11/17 09:00 09/20/17 09:25 (Neurontin) 600 mg QID PO 09/10/17 18:00 09/20/17 14:10 (Theragran M Tab) 1 tab DAILY PO 09/11/17 09:00 09/20/17 09:25 (Nicotine Gum) 4 mg Q2H PRN CHEW 09/10/17 16:15 (Vasotec Inj) 1.25 mg Q6H PRN IV PUSH 09/10/17 16:30 (Apresoline Inj) 10 mg Q6H PRN IV PUSH 09/10/17 16:30 09/19/17 12:48 (Catapres) 0.1 mg Q6H PRN PO 09/10/17 16:30 (Albuterol Neb) 2.5 mg Q2HR NEB PRN NEB 09/10/17 16:30 09/18/17 01:55 (NS Flush) 2 ml UNSCH PRN IV FLUSH 09/10/17 16:30 09/11/17 09:47 (NS Flush) 2 ml BID IV FLUSH 09/10/17 21:00 09/20/17 09:00 (Tylenol) 650 mg Q4H PRN PO 09/10/17 16:30 (Zofran Inj) 4 mg Q6H PRN IVP 09/10/17 16:30 (Tylenol) 650 mg Q6H PRN PO 09/10/17 16:30 ([place] 5-325 Mg) 1 tab Q4H PRN PO 09/10/17 16:30 09/17/17 01:00 (Morphine Inj) 1 mg Q3H PRN IV PUSH 09/10/17 16:30 09/20/17 14:10 (Narcan Inj) 0.4 mg UNSCH PRN IV PUSH 09/10/17 16:30 (Alanna-Colace) 1 tab BID PO 09/10/17 21:00 09/20/17 09:25 (Senokot) 17.2 mg Q12H PRN PO 09/10/17 16:30 09/19/17 09:30 (Dulcolax Supp) 10 mg DAILY PRN RECTAL 09/10/17 16:30 (Lactulose Liq) 30 ml DAILY PRN PO 09/10/17 16:30 09/19/17 09:30 ([place] 10-325 Mg) 1 tab Q4H PRN PO 09/10/17 17:00 09/19/17 21:57 (Protonix) 40 mg DAILY PO 09/11/17 21:00 09/20/17 09:25 (Ativan Inj) 1 mg Q6H PRN IV PUSH 09/11/17 14:00 09/13/17 17:39 Miscellaneous Information Patient in critical care unit? Ass... Q361D .XX 09/11/17 19:00 (Tums Chew) 500 mg Q6H PRN CHEW 09/13/17 10:30 (Bumex Inj) 1 mg Q8H IV PUSH 09/15/17 17:00 09/20/17 09:25 (D50w (Vial) Inj) 50 ml UNSCH PRN IV PUSH 09/15/17 14:45 (Glucagon Inj) 1 mg UNSCH PRN OTHER 09/15/17 14:45 (NovoLOG SUPPLEMENTAL SCALE) 1 ACHS SLIDING SCALE SQ 09/15/17 17:00 09/19/17 22:06 Ceftriaxone Sodium 2000 mg/ Sodium Chloride 100 ml @ 200 mls/hr Q24H IV 09/17/17 18:00 09/19/17 16:29 (Levemir Inj) 40 units BID SQ 09/19/17 09:00 09/20/17 09:00 (Apresoline) 50 mg Q8HR PO 09/19/17 14:00 09/20/17 14:10 (SoluMEDROL INJ) 40 mg Q8HR IV PUSH 09/19/17 22:00 09/20/17 14:09 (Lactulose Liq) 30 ml ONCE ONCE PO 09/20/17 16:30 09/20/17 16:31 UNV (Glycerin Adult Supp) 2 gm ONCE ONCE RECTAL 09/20/17 16:30 09/20/17 16:31 UNV (Fleet Mineral Oil Enema) 118 ml DAILY PRN RECTAL 09/20/17 16:30 UNV Vital Signs / I&O Vital Signs Date Time Temp Pulse Resp B/P (MAP) Pulse Ox O2 Delivery O2 Flow Rate FiO2 09/20/17 14:00 90 09/20/17 13:00 89 09/20/17 12:00 89 09/20/17 12:00 98.0 89 29 145/64 (91) 90 09/20/17 11:00 90 09/20/17 10:00 90 09/20/17 09:00 93 09/20/17 08:00 88 09/20/17 08:00 98.3 88 10 157/71 (99) 99 09/20/17 07:57 Nasal Cannula 4.00 09/20/17 07:00 96 Nasal Cannula 6.00 09/20/17 07:00 91 09/20/17 06:00 80 09/20/17 04:00 98.4 77 12 145/69 (94) 95 09/20/17 04:00 77 09/20/17 02:00 89 09/20/17 00:00 98.8 80 11 132/62 (85) 95 09/20/17 00:00 80 09/19/17 22:35 97 Nasal Cannula 4.00 09/19/17 22:01 16 09/19/17 22:00 90 09/19/17 20:00 91 09/19/17 20:00 98.6 91 15 167/74 (105) 100 09/19/17 19:00 96 Nasal Cannula 6.00 09/19/17 18:00 96 I/O 09/19/17 09/19/17 09/19/17 09/20/17 09/20/17 09/20/17 07:00 15:00 23:00 07:00 15:00 23:00 Intake Total 300 ml 1440 ml 650 ml Output Total 1750 ml 3400 ml 2350 ml Balance -1450 ml -1960 ml -1700 ml Intake Oral 300 ml 1440 ml 650 ml Output Urine Total 1750 ml 3400 ml 2350 ml Stool Total 0 ml 0 ml Physical Exam GENERAL: NAD, AAOx3 SKIN: Warm and dry. HEAD: Atraumatic. Normocephalic. EYES: Pupils equal and round. No scleral icterus. No injection or drainage. ENT: No nasal bleeding or discharge. Mucous membranes pink and moist. NECK: Trachea midline. No JVD. CARDIOVASCULAR: Regular rate and rhythm. 2/6 holosystolic murmur at the apex RESPIRATORY: No accessory muscle use. Decreased breath sounds bilaterally GASTROINTESTINAL: Abdomen soft, non-tender, nondistended. Hepatic and splenic margins not palpable. MUSCULOSKELETAL: Extremities without clubbing, cyanosis, or edema. No obvious deformities. Right radial no hematoma, neurovascularly intact distally. Right brachial no ecchymosis NEUROLOGICAL: Awake and alert. No obvious cranial nerve deficits. Motor grossly within normal limits. Five out of 5 muscle strength in the arms and legs. Normal speech. PSYCHIATRIC: Appropriate mood and affect; insight and judgment normal. Assessment and Plan Problem List: (1) Severe mitral regurgitation ICD Codes: I34.0 - Nonrheumatic mitral (valve) insufficiency Status: Acute (2) Hospital-acquired pneumonia ICD Codes: J18.9 - Pneumonia, unspecified organism Status: Acute (3) HTN (hypertension) ICD Codes: I10 - Essential (primary) hypertension Status: Chronic (4) COPD exacerbation ICD Codes: J44.1 - Chronic obstructive pulmonary disease with (acute) exacerbation (5) STAN (acute kidney injury) ICD Codes: N17.9 - Acute kidney failure, unspecified Assessment and Plan 1) Respiratory failure secondary to severe mitral regurgitation 2) CT surgery evaluation for mitral valve repair Discussed with Dr. Beck Most likely needs to go to PT/Rehab before being set up for surgery Surgery will discuss with him further 3) No significant CAD on cath 4) Con't diuresis 5) HTN, better controlled 6) Will need ID clearance from his left foot before surgery also Marty Fine DO Sep 20, 2017 17:03
[2017-09-20] MEDS: cefTRIAXone INJ 2,000 MG in SODIUM CHLORIDE 0.9% INJ 100 ML IV SCH (17:53)
--- NOTE | 2017-09-20 19:27 | HHI.PR ---
Subjective Remarks 52 YOWM with RF,Pneumonia, Sepsis mild distress no Fever Chest tubes removed had cardiac cath, sig MR On4 LNC Feels much better , anxious to have surgery done Objective Vital Signs Vital Signs Date Time Temp Pulse Resp B/P (MAP) Pulse Ox O2 Delivery O2 Flow Rate FiO2 09/20/17 18:00 89 09/20/17 17:00 90 09/20/17 16:00 98.1 88 21 143/65 (91) 89 09/20/17 16:00 88 09/20/17 15:00 82 09/20/17 14:00 90 09/20/17 13:00 89 09/20/17 12:00 89 09/20/17 12:00 98.0 89 29 145/64 (91) 90 09/20/17 11:00 90 09/20/17 10:00 90 09/20/17 09:00 93 09/20/17 08:00 88 09/20/17 08:00 98.3 88 10 157/71 (99) 99 09/20/17 07:57 Nasal Cannula 4.00 09/20/17 07:00 96 Nasal Cannula 6.00 09/20/17 07:00 91 09/20/17 06:00 80 09/20/17 04:00 98.4 77 12 145/69 (94) 95 09/20/17 04:00 77 09/20/17 02:00 89 09/20/17 00:00 98.8 80 11 132/62 (85) 95 09/20/17 00:00 80 09/19/17 22:35 97 Nasal Cannula 4.00 09/19/17 22:01 16 09/19/17 22:00 90 09/19/17 20:00 91 09/19/17 20:00 98.6 91 15 167/74 (105) 100 I/O 09/19/17 09/19/17 09/19/17 09/20/17 09/20/17 09/20/17 07:00 15:00 23:00 07:00 15:00 23:00 Intake Total 300 ml 1440 ml 650 ml 2450 ml Output Total 1750 ml 3400 ml 2350 ml 4200 ml Balance -1450 ml -1960 ml -1700 ml -1750 ml Intake Oral 300 ml 1440 ml 650 ml 2450 ml Output Urine Total 1750 ml 3400 ml 2350 ml 4200 ml Stool Total 0 ml 0 ml Result Diagram: 09/19/1741609/19/17416 Objective Remarks GENERAL: MBMN WM on BIPAP SKIN: Warm and dry. HEAD: Normocephalic. EYES: No scleral icterus. No injection or drainage. NECK: Supple, trachea midline. No JVD or lymphadenopathy. CARDIOVASCULAR: Regular rate and rhythm without murmurs, gallops, or rubs. RESPIRATORY: Breath sounds equal bilaterally. No accessory muscle use. GASTROINTESTINAL: Abdomen soft, non-tender, nondistended. MUSCULOSKELETAL: No cyanosis, or edema. BACK: Nontender without obvious deformity. No CVA tenderness. A/P Assessment and Plan Resp Failure, improved COPD Sepsis Pneumonia DM Severe Mitral regurgitation PLAN Supplement 02 with NC Cont Abx Aerosol nebs IV Steroids Use Incentive spirometry. Dariel Landry MD Sep 20, 2017 19:27
[2017-09-20] MEDS: RESP: ALBUTEROL 2.5 MG/3 ML NEB (PRN) NEB (22:30)
[2017-09-21] VITALS (14 sets, daily range): BP systolic 142–167; BP diastolic 65–96; PULSE 75–91; RESP 12–21; TEMP 96–98.6; O2SAT 78–99
[2017-09-21 00:18] LABS: AUTOMATED NEUTROPHIL # 17.4 TH/MM3 (1.8-7.7); HEMATOCRIT 27.1 % (39.0-51.0); HEMO FLAGS DIFF FINAL; LYMPH % 3.2 % (9.0-44.0); LYMPHOCYTE # 0.6 TH/MM3 (1.0-4.8); MEAN CELL VOLUME 77.4 FL (80.0-100.0); MEAN CORPUSCULAR HEMOGLOBIN 25.2 PG (27.0-34.0); MEAN CORPUSCULAR HGB CONC 32.6 % (32.0-36.0); MONO % 3.9 % (0.0-8.0); NEUT % 92.9 % (16.0-70.0); PLATELET COUNT 392 TH/MM3 (150-450); RED CELL DISTRIBUTION WIDTH 21.6 % (11.6-17.2); WHITE BLOOD COUNT 18.7 TH/MM3 (4.0-11.0)
[2017-09-21 00:29] LABS: POTASSIUM 4.9 MEQ/L (3.5-5.1)
[2017-09-21] MEDS: BUMETANIDE INJ 1 MG/4 ML VIAL IV PUSH SCH ×3 (01:00→16:00)
[2017-09-21] MEDS: methylPREDNISolone SOD SUCC 40 MG/1 ML VIAL IV PUSH SCH ×3 (05:23→21:22)
[2017-09-21] MEDS: hydrALAZINE HCL 25 MG TAB PO SCH ×3 (05:24→21:22)
[2017-09-21] MEDS: MORPHINE SULFATE 4 MG/ML INJ IV PUSH PRN ×3 (06:15→21:29)
[2017-09-21] MEDS: amLODIPine BESYLATE 5 MG TAB PO SCH ×2 (08:53→20:18)
[2017-09-21] MEDS: MULTIVITAMINS/MINERALS THERAPEUTIC TAB PO SCH (08:53)
[2017-09-21] MEDS: ATORVASTATIN 40 MG TAB PO SCH (08:53)
[2017-09-21] MEDS: ASPIRIN 81 MG CHEW TAB PO SCH (08:53)
[2017-09-21] MEDS: DOCUSATE SODIUM 50 MG/SENNA 8.6 MG TAB PO SCH ×2 (08:53→20:18)
[2017-09-21] MEDS: GABAPENTIN 300 MG CAP PO SCH ×4 (08:54→20:18)
[2017-09-21] MEDS: ASCORBIC ACID 500 MG TAB PO SCH (08:54)
[2017-09-21] MEDS: INSULIN DETEMIR 100 UNITS/ML VIAL SQ SCH ×2 (08:54→20:26)
[2017-09-21] MEDS: PANTOPRAZOLE SOD 40 MG DELAYED RELEASE TAB PO SCH (08:54)
[2017-09-21] MEDS: FINASTERIDE 5 MG TAB PO SCH (08:54)
[2017-09-21] MEDS: FLUCONAZOLE 200 MG TAB PO SCH (08:54)
[2017-09-21] MEDS: SODIUM CHLORIDE 0.9% FLUSH 10 ML FLUSH IV FLUSH SCH ×2 (08:55→20:42)
[2017-09-21] MEDS: INSULIN ASPART SUPPLEMENTAL SCALE SQ SCH ×4 (08:55→20:36)
--- NOTE | 2017-09-21 11:27 | HHI.PR ---
Subjective Remarks This is a pleasant 52 y/o male with severe Mitral regurgitation, EF 50%, who is been seen by Cardiothoracic Surgery recommended for Mitral Valve repair once cleared by ID specialist. Seen in his bedroom discussed with nurse Miss Benítez has constipation, patient complaint of Blurry vision and Constipation. 09/21: Stable in his bedroom and discussed with nurse Miss Pathak, no new issues, no nausea, vomit or diarrhea. Objective Vital Signs Date Time Temp Pulse Resp B/P (MAP) Pulse Ox O2 Delivery O2 Flow Rate FiO2 09/21/17 08:03 93 Nasal Cannula 4.00 09/21/17 06:00 83 09/21/17 04:00 98.3 75 12 149/69 (95) 94 09/21/17 04:00 87 09/21/17 02:00 86 09/21/17 00:00 90 09/21/17 00:00 98.4 89 15 155/67 (96) 78 09/20/17 22:30 93 Nasal Cannula 4.00 09/20/17 22:00 92 09/20/17 20:00 98.7 91 16 150/67 (94) 93 09/20/17 20:00 91 09/20/17 19:00 94 Nasal Cannula 6.00 09/20/17 18:00 89 09/20/17 17:00 90 09/20/17 16:00 98.1 88 21 143/65 (91) 89 09/20/17 16:00 88 09/20/17 15:00 82 09/20/17 14:00 90 09/20/17 13:00 89 09/20/17 12:00 89 09/20/17 12:00 98.0 89 29 145/64 (91) 90 I/O 09/20/17 09/20/17 09/20/17 09/21/17 09/21/17 09/21/17 07:00 15:00 23:00 07:00 15:00 23:00 Intake Total 650 ml 2450 ml 1420 ml Output Total 2350 ml 4200 ml 1200 ml Balance -1700 ml -1750 ml 220 ml Intake Oral 650 ml 2450 ml 1420 ml Output Urine Total 2350 ml 4200 ml 1200 ml Stool Total 0 ml # Bowel Movements 0 Result Diagram: 09/20/17 23509/20/17 2350 Imaging Last Impressions Chest X-Ray 09/16/17 0000 Signed Impressions: Service Date/Time: Saturday, September 16, 2017 11:49 - CONCLUSION: 1. Right chest tube out. No pneumothorax. 2. Patchy diffuse bilateral airspace disease without significant change. Jose Francisco Rodriguez MD Procedures BL pigatil catheter chest placement on 09/14 Other Results Laboratory Tests Test 09/10/17 14:30 09/10/17 16:10 09/11/17 08:37 09/11/17 09:25 Prothrombin Time 12.0 SEC Prothromb Time International Ratio 1.1 RATIO Activated Partial Thromboplast Time 31.3 SEC B-Type Natriuretic Peptide 244 PG/ML Lactic Acid Level 1.3 mmol/L Blood Gas Liter Flow 15 L/M Nasal Screen MRSA (PCR) MRSA DETECTED Test 09/11/17 14:40 09/13/17 13:46 09/13/17 14:52 09/17/17 19:00 Urine Color YELLOW Urine Turbidity HAZY Urine pH 6.0 Urine Specific [place] 1.016 Urine Protein 300 mg/dL Urine Glucose (UA) 1000 mg/dL Urine Ketones NEG mg/dL Urine Occult Blood NEG Urine Nitrite NEG Urine Bilirubin NEG Urine Urobilinogen LESS THAN 2.0 MG/DL Urine Leukocyte Esterase NEG Urine RBC 2 /hpf Urine WBC 1 /hpf Urine Amorphous Sediment RARE Microscopic Urinalysis Comment CATH-CULT NOT IND Body Fluid Amylase Source PLEURAL Body Fluid Amylase 3 U/L Pleural Fluid pH 8.0 Pleural Fluid WBC 109 /MM3 Pleural Fluid RBC 1195 /MM3 Pleural Fluid Neutrophils 7 % Pleural Fluid Lymphocytes 27 % Pleural Fluid Monocytes 43 % Pleural Fluid Histiocytes 7 % Pleural Fluid Mesothelial Cells 16 % Pleural Fluid Comment Pleural Fluid Total Protein 1.4 GM/DL Pleural Fluid LDH 90 U/L Pleural Fluid Glucose 144 MG/DL Blood Gas Puncture Site RT RADIAL Blood Gas Patient Temperature 98.6 Blood Gas HCO3 22 mmol/L Blood Gas Base Excess -2.5 mmol/L Blood Gas Oxygen Saturation 90 % Arterial Blood pH 7.40 Arterial Blood Partial Pressure CO2 35 mmHg Arterial Blood Partial Pressure O2 70 mmHg Arterial Blood Oxygen Content 11.2 Vol % Arterial Blood Carboxyhemoglobin 1.2 % Arterial Blood Methemoglobin 1.1 % Blood Gas Hemoglobin 8.8 G/DL Oxygen Delivery Device BiPAP Blood Gas Ventilator Setting [id number] Blood Gas Inspired Oxygen 80 % Erythrocyte Sedimentation Rate 8 mm/hr Test 09/18/17 09:30 09/20/17 23:50 Blood Urea Nitrogen 65 MG/DL 53 MG/DL Creatinine 1.26 MG/DL 1.31 MG/DL Random Glucose 191 MG/DL 238 MG/DL Total Protein 5.9 GM/DL Albumin 2.7 GM/DL Calcium Level 8.4 MG/DL 8.1 MG/DL Phosphorus Level 3.3 MG/DL Magnesium Level 2.3 MG/DL Alkaline Phosphatase 112 U/L Aspartate Amino Transf (AST/SGOT) 28 U/L Alanine Aminotransferase (ALT/SGPT) 86 U/L Total Bilirubin 0.2 MG/DL Sodium Level 134 MEQ/L 132 MEQ/L Potassium Level 4.3 MEQ/L 4.9 MEQ/L Chloride Level 99 MEQ/L 97 MEQ/L Carbon Dioxide Level 26.4 MEQ/L 28.0 MEQ/L White Blood Count 18.7 TH/MM3 Red Blood Count 3.50 MIL/MM3 Hemoglobin 8.8 GM/DL Hematocrit 27.1 % Mean Corpuscular Volume 77.4 FL Mean Corpuscular Hemoglobin 25.2 PG Mean Corpuscular Hemoglobin Concent 32.6 % Red Cell Distribution Width 21.6 % Platelet Count 392 TH/MM3 Mean Platelet Volume 8.7 FL Neutrophils (%) (Auto) 92.9 % Lymphocytes (%) (Auto) 3.2 % Monocytes (%) (Auto) 3.9 % Eosinophils (%) (Auto) 0.0 % Basophils (%) (Auto) 0.0 % Neutrophils # (Auto) 17.4 TH/MM3 Lymphocytes # (Auto) 0.6 TH/MM3 Monocytes # (Auto) 0.7 TH/MM3 Eosinophils # (Auto) 0.0 TH/MM3 Basophils # (Auto) 0.0 TH/MM3 CBC Comment DIFF FINAL Differential Comment Anion Gap 7 MEQ/L Estimat Glomerular Filtration Rate 57 ML/MIN Objective Remarks GENERAL: Well developed SKIN: No rashes, ecchymoses or lesions. Very pale. CARDIOVASCULAR: Regular rate and rhythm with a systolic murmur, no rubs or gallops RESPIRATORY: BL bibasilar crackles at both bases, no wheezing or rhonchi. GASTROINTESTINAL: Abdomen soft, non-tender, nondistended. No guarding. MUSCULOSKELETAL: Extremities without clubbing, cyanosis, but with bilateral lower extremity pitting edema. Left heel with wound vac NEUROLOGICAL: Alert and oriented Cranial nerves II through XII intact. Medications and IVs Current Medications Medications (Trade) Dose Ordered Sig/Sumanth Route Start Time Stop Time Status Last Admin (Norvasc) 5 mg BID PO 09/10/17 21:00 09/21/17 08:53 (Vitamin C) 500 mg DAILY PO 09/11/17 09:00 09/21/17 08:54 (Aspirin Chew) 81 mg DAILY PO 09/11/17 09:00 09/21/17 08:53 (Lipitor) 40 mg DAILY PO 09/11/17 09:00 09/21/17 08:53 (Proscar) 5 mg DAILY PO 09/11/17 09:00 09/21/17 08:54 (Diflucan) 200 mg DAILY PO 09/11/17 09:00 09/21/17 08:54 (Neurontin) 600 mg QID PO 09/10/17 18:00 09/21/17 08:54 (Theragran M Tab) 1 tab DAILY PO 09/11/17 09:00 09/21/17 08:53 (Nicotine Gum) 4 mg Q2H PRN CHEW 09/10/17 16:15 (Vasotec Inj) 1.25 mg Q6H PRN IV PUSH 09/10/17 16:30 (Apresoline Inj) 10 mg Q6H PRN IV PUSH 09/10/17 16:30 09/19/17 12:48 (Catapres) 0.1 mg Q6H PRN PO 09/10/17 16:30 (Albuterol Neb) 2.5 mg Q2HR NEB PRN NEB 09/10/17 16:30 09/20/17 22:30 (NS Flush) 2 ml UNSCH PRN IV FLUSH 09/10/17 16:30 09/11/17 09:47 (NS Flush) 2 ml BID IV FLUSH 09/10/17 21:00 09/21/17 08:55 (Tylenol) 650 mg Q4H PRN PO 09/10/17 16:30 (Zofran Inj) 4 mg Q6H PRN IVP 09/10/17 16:30 (Tylenol) 650 mg Q6H PRN PO 09/10/17 16:30 ([place] 5-325 Mg) 1 tab Q4H PRN PO 09/10/17 16:30 09/17/17 01:00 (Morphine Inj) 1 mg Q3H PRN IV PUSH 09/10/17 16:30 09/21/17 06:15 (Narcan Inj) 0.4 mg UNSCH PRN IV PUSH 09/10/17 16:30 (Alanna-Colace) 1 tab BID PO 09/10/17 21:00 09/21/17 08:53 (Senokot) 17.2 mg Q12H PRN PO 09/10/17 16:30 09/19/17 09:30 (Dulcolax Supp) 10 mg DAILY PRN RECTAL 09/10/17 16:30 (Lactulose Liq) 30 ml DAILY PRN PO 09/10/17 16:30 09/19/17 09:30 ([place] 10-325 Mg) 1 tab Q4H PRN PO 09/10/17 17:00 09/19/17 21:57 (Protonix) 40 mg DAILY PO 09/11/17 21:00 09/21/17 08:54 (Ativan Inj) 1 mg Q6H PRN IV PUSH 09/11/17 14:00 09/13/17 17:39 Miscellaneous Information Patient in critical care unit? Ass... Q361D .XX 09/11/17 19:00 (Tums Chew) 500 mg Q6H PRN CHEW 09/13/17 10:30 (Bumex Inj) 1 mg Q8H IV PUSH 09/15/17 17:00 09/21/17 08:55 (D50w (Vial) Inj) 50 ml UNSCH PRN IV PUSH 09/15/17 14:45 (Glucagon Inj) 1 mg UNSCH PRN OTHER 09/15/17 14:45 (NovoLOG SUPPLEMENTAL SCALE) 1 ACHS SLIDING SCALE SQ 09/15/17 17:00 09/21/17 08:55 Ceftriaxone Sodium 2000 mg/ Sodium Chloride 100 ml @ 200 mls/hr Q24H IV 09/17/17 18:00 09/20/17 17:53 (Levemir Inj) 40 units BID SQ 09/19/17 09:00 09/21/17 08:54 (Apresoline) 50 mg Q8HR PO 09/19/17 14:00 09/21/17 05:24 (SoluMEDROL INJ) 40 mg Q8HR IV PUSH 09/19/17 22:00 09/21/17 05:23 (Fleet Mineral Oil Enema) 118 ml DAILY PRN RECTAL 09/20/17 16:30 A/P Assessment and Plan This is a pleasant 52 y/o male with COPD, DM II, chronic pain syndrome, OA, CVA, , Hyperlipidemia, GERD, Hypertension and Neuropathy seen in ER due to Shortness of breath. Chest x-ray shows consolidation in the right lung base and has been started Zithromax and Zosyn. 1. Acute Hypoxemic Respiratory Failure Combination of Pneumonia and COPD Exacerbation and possibly Congestive Heart Failure, Patient status post bilateral pigtail catheter placement on 09/14 for drainage of pleural effusions. Echocardiogram performed on 08/11/17 showed a normal ejection fraction the range of 55-60%.AUSTEN showed severe mitral valve regurgitation, however Dr. Fine from cardiology determined that the patient was not a candidate for possible surgical intervention.medical sales specialist following , has Refractory heart failure and Cardiology recommended Mitral Valve repair, status post Cardiac Cath 09/19 CT Surgeon recommended Mitral Valve repair. asked for clearance by ID specialist 2. Sepsis secondary to HAP Negative Urinary Legionella and Pneumococcal antigen , ID following, BiPAP as needed, actually on Rocephin and Azithromycin 3. Left Heel ulcer stage II, Osteomyelitis Strep Bovis, status post left partial calcanectomy and Achilles department. Podiatry has been consulted. The patient's left heel had been treated for osteomyelitis with IM Rocephin and Diflucan. Podiatry specialist following. 4. DM II continue sliding scale and long lasting insulin Levemir. 44 units 5. Hypertension controlled. 6. Constipation Improving. Transfer to Medical Floor. DVT prophylaxis with subcutaneous heparin Discharge Planning once cleared by specialists. Uriah Worrell MD Sep 21, 2017 11:27 am
--- NOTE | 2017-09-21 13:03 | PD.CONS ---
History of Present Illness Service Ophthalmology Consult Requested By Reason for Consult blurry vision Primary Care Physician Rey Hernandez MD Diagnoses: History of Present Illness 52 yo M with a history of COPD, DM, PAD, chronic pain, arthritis, CVA, hyperlipidemia, GERD, hypertension and neuropathy presenting with SOB. Diagnosed with severe mitral regurgitation and scheduled for mitral valve repair. c/o 1 day history of blurry vision OU. Pt states he has a history of being legally blind since , nystagmus, and cataracts. He normally goes to [facility] for his eye exams. Past Family Social History Allergies: Coded Allergies: *MDRO Multi-Drug Resistant Organism (Verified Adverse Reaction, Unknown, 09/10/17) MRSA (arm wound) - 01/2016 MRSA (blood, urine, wound) - 06/2013 Physical Exam Vital Signs Vital Signs Date Time Temp Pulse Resp B/P (MAP) Pulse Ox O2 Delivery O2 Flow Rate FiO2 09/21/17 08:03 93 Nasal Cannula 4.00 09/21/17 06:00 83 09/21/17 04:00 98.3 75 12 149/69 (95) 94 09/21/17 04:00 87 09/21/17 02:00 86 09/21/17 00:00 90 09/21/17 00:00 98.4 89 15 155/67 (96) 78 09/20/17 22:30 93 Nasal Cannula 4.00 09/20/17 22:00 92 09/20/17 20:00 98.7 91 16 150/67 (94) 93 09/20/17 20:00 91 09/20/17 19:00 94 Nasal Cannula 6.00 09/20/17 18:00 89 09/20/17 17:00 90 09/20/17 16:00 98.1 88 21 143/65 (91) 89 09/20/17 16:00 88 09/20/17 15:00 82 09/20/17 14:00 90 09/20/17 13:00 89 Physical Exam Va sc at near OD 20/400, OS 20/800 EOM full OU, nystagmus CVF full OU Pupils 2-1 no APD OU IOP normal to palpation OU Anterior exam OD - normal eyelid, C/S W&Q, K clear, AC deep, pupil round, PSC cataract OS - normal eyelid, C/S W&Q, K clear, AC deep, pupil round, PSC cataract Dilated exam OD - ON s/p/f, ves normal, vit clear, DBH OS - ON s/p/f, ves normal, vit clear, DBH Laboratory Laboratory Tests Test 09/20/17 23:50 White Blood Count 18.7 Red Blood Count 3.50 Hemoglobin 8.8 Hematocrit 27.1 Mean Corpuscular Volume 77.4 Mean Corpuscular Hemoglobin 25.2 Mean Corpuscular Hemoglobin Concent 32.6 Red Cell Distribution Width 21.6 Platelet Count 392 Mean Platelet Volume 8.7 Neutrophils (%) (Auto) 92.9 Lymphocytes (%) (Auto) 3.2 Monocytes (%) (Auto) 3.9 Eosinophils (%) (Auto) 0.0 Basophils (%) (Auto) 0.0 Neutrophils # (Auto) 17.4 Lymphocytes # (Auto) 0.6 Monocytes # (Auto) 0.7 Eosinophils # (Auto) 0.0 Basophils # (Auto) 0.0 CBC Comment DIFF FINAL Differential Comment Blood Urea Nitrogen 53 Creatinine 1.31 Random Glucose 238 Calcium Level 8.1 Sodium Level 132 Potassium Level 4.9 Chloride Level 97 Carbon Dioxide Level 28.0 Anion Gap 7 Estimat Glomerular Filtration Rate 57 Date/Time Source Procedure Growth Status 09/10/17 15:50 Blood Peripheral Aerobic Blood Culture - Final NO GROWTH IN 5 DAYS Complete 09/10/17 15:50 Blood Peripheral Anaerobic Blood Culture - Final NO GROWTH IN 5 DAYS Complete 09/13/17 13:46 Fluid Pleural Fluid Fungal Smear - Final NO FUNGAL ELEMENTS SEEN. Resulted 09/13/17 13:46 Fluid Pleural Fluid Fungal Culture - Preliminary NO GROWTH IN 1 WEEK Resulted 09/11/17 17:50 Nasal Washing Influenza Types A,B Antigen (ABHISHEK) - Final NEGATIVE FOR FLU A AND B ANTIGEN.... Complete 09/11/17 14:40 Urine Random Urine Legionella Antigen - Final PRESUMPTIVE NEGATIVE FOR LEGIONELLA P... Complete 09/11/17 14:40 Urine Random Urine Streptococcus pneumoniae Antigen (M - Final PRESUMPTIVE NEGATIVE FOR STREPTOCOCCU... Complete Result Diagram: 09/20/17 4753 09/20/17 4660 Assessment and Plan Problem List: (1) Posterior subcapsular age-related cataract of both eyes ICD Codes: H25.043 - Posterior subcapsular polar age-related cataract, bilateral Plan: Pt has poor baseline vision since . Can schedule surgery with his gutter installer as an outpatient once he is stable. (2) Diabetic retinopathy ICD Codes: E11.319 - Type 2 diabetes mellitus with unspecified diabetic retinopathy without macular edema Plan: Advised pt to control blood glucose. Problem Qualifiers (1) Diabetic retinopathy: Judith Bartholomew MD Sep 21, 2017 13:03
[2017-09-21] MEDS: BISACODYL 10 MG SUPP RECTAL PRN (16:00)
[2017-09-21] MEDS: cefTRIAXone INJ 2,000 MG in SODIUM CHLORIDE 0.9% INJ 100 ML IV SCH (16:01)
--- NOTE | 2017-09-21 16:08 | PD.CARD.PN ---
Subjective Subjective Remarks No events overnight SOB better Objective Medications Current Medications Medications (Trade) Dose Ordered Sig/Sumanth Route Start Time Stop Time Status Last Admin (Norvasc) 5 mg BID PO 09/10/17 21:00 09/21/17 08:53 (Vitamin C) 500 mg DAILY PO 09/11/17 09:00 09/21/17 08:54 (Aspirin Chew) 81 mg DAILY PO 09/11/17 09:00 09/21/17 08:53 (Lipitor) 40 mg DAILY PO 09/11/17 09:00 09/21/17 08:53 (Proscar) 5 mg DAILY PO 09/11/17 09:00 09/21/17 08:54 (Diflucan) 200 mg DAILY PO 09/11/17 09:00 09/21/17 08:54 (Neurontin) 600 mg QID PO 09/10/17 18:00 09/21/17 16:01 (Theragran M Tab) 1 tab DAILY PO 09/11/17 09:00 09/21/17 08:53 (Nicotine Gum) 4 mg Q2H PRN CHEW 09/10/17 16:15 (Vasotec Inj) 1.25 mg Q6H PRN IV PUSH 09/10/17 16:30 (Apresoline Inj) 10 mg Q6H PRN IV PUSH 09/10/17 16:30 09/19/17 12:48 (Catapres) 0.1 mg Q6H PRN PO 09/10/17 16:30 (Albuterol Neb) 2.5 mg Q2HR NEB PRN NEB 09/10/17 16:30 09/20/17 22:30 (NS Flush) 2 ml UNSCH PRN IV FLUSH 09/10/17 16:30 09/11/17 09:47 (NS Flush) 2 ml BID IV FLUSH 09/10/17 21:00 09/21/17 08:55 (Tylenol) 650 mg Q4H PRN PO 09/10/17 16:30 (Zofran Inj) 4 mg Q6H PRN IVP 09/10/17 16:30 (Tylenol) 650 mg Q6H PRN PO 09/10/17 16:30 ([place] 5-325 Mg) 1 tab Q4H PRN PO 09/10/17 16:30 09/17/17 01:00 (Morphine Inj) 1 mg Q3H PRN IV PUSH 09/10/17 16:30 09/21/17 16:00 (Narcan Inj) 0.4 mg UNSCH PRN IV PUSH 09/10/17 16:30 (Alanna-Colace) 1 tab BID PO 09/10/17 21:00 09/21/17 08:53 (Senokot) 17.2 mg Q12H PRN PO 09/10/17 16:30 09/19/17 09:30 (Dulcolax Supp) 10 mg DAILY PRN RECTAL 09/10/17 16:30 09/21/17 16:00 (Lactulose Liq) 30 ml DAILY PRN PO 09/10/17 16:30 09/19/17 09:30 ([place] 10-325 Mg) 1 tab Q4H PRN PO 09/10/17 17:00 09/19/17 21:57 (Protonix) 40 mg DAILY PO 09/11/17 21:00 09/21/17 08:54 (Ativan Inj) 1 mg Q6H PRN IV PUSH 09/11/17 14:00 09/13/17 17:39 Miscellaneous Information Patient in critical care unit? Ass... Q361D .XX 09/11/17 19:00 (Tums Chew) 500 mg Q6H PRN CHEW 09/13/17 10:30 (Bumex Inj) 1 mg Q8H IV PUSH 09/15/17 17:00 09/21/17 16:00 (D50w (Vial) Inj) 50 ml UNSCH PRN IV PUSH 09/15/17 14:45 (Glucagon Inj) 1 mg UNSCH PRN OTHER 09/15/17 14:45 (NovoLOG SUPPLEMENTAL SCALE) 1 ACHS SLIDING SCALE SQ 09/15/17 17:00 09/21/17 12:50 Ceftriaxone Sodium 2000 mg/ Sodium Chloride 100 ml @ 200 mls/hr Q24H IV 09/17/17 18:00 09/21/17 16:01 (Levemir Inj) 40 units BID SQ 09/19/17 09:00 09/21/17 08:54 (Apresoline) 50 mg Q8HR PO 09/19/17 14:00 09/21/17 12:49 (SoluMEDROL INJ) 40 mg Q8HR IV PUSH 09/19/17 22:00 09/21/17 12:50 (Fleet Mineral Oil Enema) 118 ml DAILY PRN RECTAL 09/20/17 16:30 Vital Signs / I&O Vital Signs Date Time Temp Pulse Resp B/P (MAP) Pulse Ox O2 Delivery O2 Flow Rate FiO2 09/21/17 14:00 90 09/21/17 12:00 98.6 91 21 142/96 (111) 91 09/21/17 12:00 91 09/21/17 10:00 90 09/21/17 08:03 93 Nasal Cannula 4.00 09/21/17 08:00 98.1 85 16 167/78 (107) 94 09/21/17 08:00 94 Nasal Cannula 4.00 09/21/17 08:00 85 09/21/17 06:00 83 09/21/17 04:00 98.3 75 12 149/69 (95) 94 09/21/17 04:00 87 09/21/17 02:00 86 09/21/17 00:00 90 09/21/17 00:00 98.4 89 15 155/67 (96) 78 09/20/17 22:30 93 Nasal Cannula 4.00 09/20/17 22:00 92 09/20/17 20:00 98.7 91 16 150/67 (94) 93 09/20/17 20:00 91 09/20/17 19:00 94 Nasal Cannula 6.00 09/20/17 18:00 89 09/20/17 17:00 90 I/O 09/20/17 09/20/17 09/20/17 09/21/17 09/21/17 09/21/17 07:00 15:00 23:00 07:00 15:00 23:00 Intake Total 650 ml 2450 ml 1420 ml Output Total 2350 ml 4200 ml 1200 ml Balance -1700 ml -1750 ml 220 ml Intake Oral 650 ml 2450 ml 1420 ml Output Urine Total 2350 ml 4200 ml 1200 ml Stool Total 0 ml # Bowel Movements 0 Physical Exam GENERAL: NAD, AAOx3 SKIN: Warm and dry. HEAD: Atraumatic. Normocephalic. EYES: Pupils equal and round. No scleral icterus. No injection or drainage. ENT: No nasal bleeding or discharge. Mucous membranes pink and moist. NECK: Trachea midline. No JVD. CARDIOVASCULAR: Regular rate and rhythm. 2/6 holosystolic murmur at the apex RESPIRATORY: No accessory muscle use. Decreased breath sounds bilaterally GASTROINTESTINAL: Abdomen soft, non-tender, nondistended. Hepatic and splenic margins not palpable. MUSCULOSKELETAL: Extremities without clubbing, cyanosis, or edema. No obvious deformities. Right radial no hematoma, neurovascularly intact distally. Right brachial no ecchymosis NEUROLOGICAL: Awake and alert. No obvious cranial nerve deficits. Motor grossly within normal limits. Five out of 5 muscle strength in the arms and legs. Normal speech. PSYCHIATRIC: Appropriate mood and affect; insight and judgment normal. Laboratory Laboratory Tests Test 09/20/17 23:50 White Blood Count 18.7 TH/MM3 Red Blood Count 3.50 MIL/MM3 Hemoglobin 8.8 GM/DL Hematocrit 27.1 % Mean Corpuscular Volume 77.4 FL Mean Corpuscular Hemoglobin 25.2 PG Mean Corpuscular Hemoglobin Concent 32.6 % Red Cell Distribution Width 21.6 % Platelet Count 392 TH/MM3 Mean Platelet Volume 8.7 FL Neutrophils (%) (Auto) 92.9 % Lymphocytes (%) (Auto) 3.2 % Monocytes (%) (Auto) 3.9 % Eosinophils (%) (Auto) 0.0 % Basophils (%) (Auto) 0.0 % Neutrophils # (Auto) 17.4 TH/MM3 Lymphocytes # (Auto) 0.6 TH/MM3 Monocytes # (Auto) 0.7 TH/MM3 Eosinophils # (Auto) 0.0 TH/MM3 Basophils # (Auto) 0.0 TH/MM3 CBC Comment DIFF FINAL Differential Comment Blood Urea Nitrogen 53 MG/DL Creatinine 1.31 MG/DL Random Glucose 238 MG/DL Calcium Level 8.1 MG/DL Sodium Level 132 MEQ/L Potassium Level 4.9 MEQ/L Chloride Level 97 MEQ/L Carbon Dioxide Level 28.0 MEQ/L Anion Gap 7 MEQ/L Estimat Glomerular Filtration Rate 57 ML/MIN Assessment and Plan Problem List: (1) Severe mitral regurgitation ICD Codes: I34.0 - Nonrheumatic mitral (valve) insufficiency Status: Acute (2) Hospital-acquired pneumonia ICD Codes: J18.9 - Pneumonia, unspecified organism Status: Acute (3) HTN (hypertension) ICD Codes: I10 - Essential (primary) hypertension Status: Chronic (4) COPD exacerbation ICD Codes: J44.1 - Chronic obstructive pulmonary disease with (acute) exacerbation (5) STAN (acute kidney injury) ICD Codes: N17.9 - Acute kidney failure, unspecified Assessment and Plan 1) Respiratory failure secondary to severe mitral regurgitation 2) CT surgery evaluation for mitral valve repair Discussed with Dr. Beck Most likely needs to go to PT/Rehab before being set up for surgery Surgery will discuss with him further 3) No significant CAD on cath 4) Con't diuresis 5) HTN, better controlled 6) Will need ID clearance from his left foot before surgery also Marty Fine DO Sep 21, 2017 16:07
--- NOTE | 2017-09-21 18:13 | HHI.PR ---
Subjective Remarks 52 YOWM with RF,Pneumonia, Sepsis mild distress no Fever Chest tubes removed had cardiac cath, sig MR On4 LNC Objective Vital Signs Vital Signs Date Time Temp Pulse Resp B/P (MAP) Pulse Ox O2 Delivery O2 Flow Rate FiO2 09/21/17 14:00 90 09/21/17 12:00 98.6 91 21 142/96 (111) 91 09/21/17 12:00 91 09/21/17 10:00 90 09/21/17 08:03 93 Nasal Cannula 4.00 09/21/17 08:00 98.1 85 16 167/78 (107) 94 09/21/17 08:00 94 Nasal Cannula 4.00 09/21/17 08:00 85 09/21/17 06:00 83 09/21/17 04:00 98.3 75 12 149/69 (95) 94 09/21/17 04:00 87 09/21/17 02:00 86 09/21/17 00:00 90 09/21/17 00:00 98.4 89 15 155/67 (96) 78 09/20/17 22:30 93 Nasal Cannula 4.00 09/20/17 22:00 92 09/20/17 20:00 98.7 91 16 150/67 (94) 93 09/20/17 20:00 91 09/20/17 19:00 94 Nasal Cannula 6.00 I/O 09/20/17 09/20/17 09/20/17 09/21/17 09/21/17 09/21/17 07:00 15:00 23:00 07:00 15:00 23:00 Intake Total 650 ml 2450 ml 1420 ml Output Total 2350 ml 4200 ml 1200 ml Balance -1700 ml -1750 ml 220 ml Intake Oral 650 ml 2450 ml 1420 ml Output Urine Total 2350 ml 4200 ml 1200 ml Stool Total 0 ml # Bowel Movements 0 Result Diagram: 09/20/17234909/20/172349 Objective Remarks GENERAL: MBMN WM on BIPAP SKIN: Warm and dry. HEAD: Normocephalic. EYES: No scleral icterus. No injection or drainage. NECK: Supple, trachea midline. No JVD or lymphadenopathy. CARDIOVASCULAR: Regular rate and rhythm without murmurs, gallops, or rubs. RESPIRATORY: Breath sounds equal bilaterally. No accessory muscle use. GASTROINTESTINAL: Abdomen soft, non-tender, nondistended. MUSCULOSKELETAL: No cyanosis, or edema. BACK: Nontender without obvious deformity. No CVA tenderness. A/P Assessment and Plan Resp Failure, improved COPD Sepsis Pneumonia DM Severe Mitral regurgitation PLAN Supplement 02 with NC Cont Abx Aerosol nebs IV Steroids Use Incentive spirometry. Seen by ID Surgery after infection Dariel Jett MD Sep 21, 2017 18:13
[2017-09-21] MEDS: ACETAMINOPHEN/HYDROcodone 325 MG/10 MG TAB PO PRN (20:37)
[2017-09-22] VITALS (8 sets, daily range): BP systolic 139–166; BP diastolic 63–71; PULSE 80–96; RESP 16–18; TEMP 96.8–98.1; O2SAT 98–100
[2017-09-22] MEDS: ACETAMINOPHEN/HYDROcodone 325 MG/10 MG TAB PO PRN ×4 (01:10→22:46)
[2017-09-22] MEDS: SODIUM CHLORIDE 0.9% FLUSH 10 ML FLUSH IV FLUSH PRN ×2 (01:11→04:59)
[2017-09-22] MEDS: BUMETANIDE INJ 1 MG/4 ML VIAL IV PUSH SCH ×3 (01:11→18:40)
[2017-09-22] MEDS: methylPREDNISolone SOD SUCC 40 MG/1 ML VIAL IV PUSH SCH ×2 (04:56→19:56)
[2017-09-22] MEDS: hydrALAZINE HCL 25 MG TAB PO SCH ×3 (04:58→21:36)
[2017-09-22] MEDS: MORPHINE SULFATE 4 MG/ML INJ IV PUSH PRN ×3 (04:58→20:00)
[2017-09-22] MEDS: SODIUM CHLORIDE 0.9% FLUSH 10 ML FLUSH IV FLUSH SCH ×2 (09:00→19:55)
[2017-09-22] MEDS: FINASTERIDE 5 MG TAB PO SCH (09:18)
[2017-09-22] MEDS: GABAPENTIN 300 MG CAP PO SCH ×4 (09:18→19:57)
[2017-09-22] MEDS: MULTIVITAMINS/MINERALS THERAPEUTIC TAB PO SCH (09:18)
[2017-09-22] MEDS: ASPIRIN 81 MG CHEW TAB PO SCH (09:19)
[2017-09-22] MEDS: ATORVASTATIN 40 MG TAB PO SCH (09:19)
[2017-09-22] MEDS: FLUCONAZOLE 200 MG TAB PO SCH (09:19)
[2017-09-22] MEDS: amLODIPine BESYLATE 5 MG TAB PO SCH ×2 (09:19→21:35)
[2017-09-22] MEDS: ASCORBIC ACID 500 MG TAB PO SCH (09:19)
[2017-09-22] MEDS: DOCUSATE SODIUM 50 MG/SENNA 8.6 MG TAB PO SCH ×2 (09:19→19:58)
[2017-09-22] MEDS: PANTOPRAZOLE SOD 40 MG DELAYED RELEASE TAB PO SCH (09:20)
[2017-09-22] MEDS: INSULIN ASPART SUPPLEMENTAL SCALE SQ SCH ×4 (09:21→21:36)
[2017-09-22] MEDS: INSULIN DETEMIR 100 UNITS/ML VIAL SQ SCH ×2 (09:22→21:35)
[2017-09-22 09:39] LABS: AUTOMATED NEUTROPHIL # 20.7 TH/MM3 (1.8-7.7); BASOPHIL # 0.1 TH/MM3 (0-0.2); BASOPHIL % 0.3 % (0.0-2.0); HEMATOCRIT 27.9 % (39.0-51.0); HEMO FLAGS DIFF FINAL; LYMPH % 4.9 % (9.0-44.0); LYMPHOCYTE # 1.1 TH/MM3 (1.0-4.8); MEAN CELL VOLUME 77.9 FL (80.0-100.0); MEAN CORPUSCULAR HEMOGLOBIN 24.8 PG (27.0-34.0); MEAN CORPUSCULAR HGB CONC 31.8 % (32.0-36.0); MONO % 3.3 % (0.0-8.0); NEUT % 91.5 % (16.0-70.0); PLATELET COUNT 384 TH/MM3 (150-450); RED BLOOD COUNT 3.58 MIL/MM3 (4.50-5.90); RED CELL DISTRIBUTION WIDTH 21.8 % (11.6-17.2); WHITE BLOOD COUNT 22.7 TH/MM3 (4.0-11.0)
[2017-09-22 10:09] LABS: BICARBONATE 29.5 MEQ/L (21.0-32.0)
--- NOTE | 2017-09-22 14:02 | HHI.PR ---
Subjective Remarks Follow up respiratory failure, pneumonia, diabetes. Patient states that he is feeling stronger. Denies chest pain, dyspnea, nausea, vomiting. Objective Vitals Vital Signs Date Time Temp Pulse Resp B/P (MAP) Pulse Ox O2 Delivery O2 Flow Rate FiO2 09/22/17 12:00 96.8 87 16 140/63 (88) 98 09/22/17 09:05 100 Nasal Cannula 4.00 09/22/17 08:00 97.7 89 16 157/68 (97) 99 09/22/17 07:15 100 4.00 09/22/17 04:00 97.3 80 17 139/66 (90) 100 09/22/17 03:22 Nasal Cannula 4.00 09/22/17 00:00 97.4 82 17 145/69 (94) 99 09/21/17 22:22 95 Nasal Cannula 4.00 09/21/17 22:22 96.0 87 18 153/65 (94) 99 09/21/17 20:05 95 Nasal Cannula 4.00 09/21/17 20:00 96.9 85 19 146/92 (110) 97 09/21/17 20:00 Nasal Cannula 4.00 65 09/21/17 20:00 85 09/21/17 18:00 85 09/21/17 16:00 98.6 88 18 154/68 (96) 94 09/21/17 16:00 88 09/21/17 14:00 90 I/O 09/21/17 09/21/17 09/21/17 09/22/17 09/22/17 09/22/17 07:00 15:00 23:00 07:00 15:00 23:00 Intake Total 1420 ml 1540 ml 240 ml Output Total 1200 ml 3100 ml 700 ml Balance 220 ml -1560 ml -460 ml Intake Oral 1420 ml 1440 ml 240 ml IV Total 100 ml Output Urine Total 1200 ml 3100 ml 700 ml Drainage Total 0 ml # Bowel Movements 0 1 Result Diagram: 09/22/1730 09/22/1730 Imaging Last Impressions Chest X-Ray 09/16/17 0000 Signed Impressions: Service Date/Time: Saturday, September 16, 2017 11:49 - CONCLUSION: 1. Right chest tube out. No pneumothorax. 2. Patchy diffuse bilateral airspace disease without significant change. Jose Francisco Rodriguez MD Objective Remarks General: No acute distress. Heart: Regular rate and rhythm. No murmur. Lungs: Mild crackles at both bases. Breathing is nonlabored. Abdomen: Soft, nontender, nondistended. Extremities: 1+ bilateral lower extremity edema. Left heel wound VAC in place. Psych: Alert and oriented. Procedures BL pigatil catheter chest placement on 09/14 Urinary Catheter: No Vascular Central Line Catheter: No A/P Problem List: (1) Sepsis ICD Code: A41.9 - Sepsis, unspecified organism Status: Acute (2) Hospital-acquired pneumonia ICD Code: J18.9 - Pneumonia, unspecified organism Status: Acute (3) Diabetes mellitus with hyperglycemia ICD Code: E11.65 - Type 2 diabetes mellitus with hyperglycemia (4) STAN (acute kidney injury) ICD Code: N17.9 - Acute kidney failure, unspecified (5) COPD exacerbation ICD Code: J44.1 - Chronic obstructive pulmonary disease with (acute) exacerbation (6) HTN (hypertension) ICD Code: I10 - Essential (primary) hypertension Status: Chronic (7) Severe mitral regurgitation ICD Code: I34.0 - Nonrheumatic mitral (valve) insufficiency Status: Acute Assessment and Plan 1. Acute hypoxemic respiratory failure: Improved. Secondary to pneumonia, COPD exacerbation. Status post bilateral pigtail catheter placement on 09/14/17 for drainage of pleural effusions. Tubes have been removed. 2. Severe mitral valve regurgitation: Appreciate cardiology, cardiothoracic surgery recommendations. Currently the plan is for the patient to have PT/ rehabilitation prior to surgical intervention. Surgery is not expected to be done during this hospitalization. 3. Sepsis secondary to healthcare associated pneumonia: Appreciate infectious disease recommendations. Continue antibiotics. 4. 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 Appreciate podiatry recommendations. Wound VAC in place. 5. Diabetes mellitus type 2: Monitor Accu-Cheks and cover with sliding scale insulin. Continue Levemir. 6. Hypertension: Continue amlodipine. 7. DVT prophylaxis: Heparin. Discharge Planning When cleared by cardiology, cardiothoracic surgery, infectious disease, pulmonology. Problem Qualifiers (1) Sepsis: Qualified Codes: A41.9 - Sepsis, unspecified organism Star Cedeño MD Sep 22, 2017 14:02
--- NOTE | 2017-09-22 14:35 | HHI.IDPN ---
Subjective Subjective Remarks doing much better On NC O2 and talking full sentences no fever Antibiotics CFTX Allergies: Coded Allergies: *MDRO Multi-Drug Resistant Organism (Verified Adverse Reaction, Unknown, 09/10/17) MRSA (arm wound) - 01/2016 MRSA (blood, urine, wound) - 06/2013 Objective . Vital Signs Date Time Temp Pulse Resp B/P (MAP) Pulse Ox O2 Delivery O2 Flow Rate FiO2 09/22/17 12:00 96.8 87 16 140/63 (88) 98 09/22/17 09:05 100 Nasal Cannula 4.00 09/22/17 08:00 97.7 89 16 157/68 (97) 99 09/22/17 07:15 100 4.00 09/22/17 04:00 97.3 80 17 139/66 (90) 100 09/22/17 03:22 Nasal Cannula 4.00 09/22/17 00:00 97.4 82 17 145/69 (94) 99 09/21/17 22:22 95 Nasal Cannula 4.00 09/21/17 22:22 96.0 87 18 153/65 (94) 99 09/21/17 20:05 95 Nasal Cannula 4.00 09/21/17 20:00 96.9 85 19 146/92 (110) 97 09/21/17 20:00 Nasal Cannula 4.00 65 09/21/17 20:00 85 09/21/17 18:00 85 09/21/17 16:00 98.6 88 18 154/68 (96) 94 09/21/17 16:00 88 . Laboratory Tests Test 09/20/17 23:50 09/22/17 09:30 White Blood Count 18.7 TH/MM3 22.7 TH/MM3 Red Blood Count 3.50 MIL/MM3 3.58 MIL/MM3 Hemoglobin 8.8 GM/DL 8.9 GM/DL Hematocrit 27.1 % 27.9 % Mean Corpuscular Volume 77.4 FL 77.9 FL Mean Corpuscular Hemoglobin 25.2 PG 24.8 PG Mean Corpuscular Hemoglobin Concent 32.6 % 31.8 % Red Cell Distribution Width 21.6 % 21.8 % Platelet Count 392 TH/MM3 384 TH/MM3 Mean Platelet Volume 8.7 FL 8.7 FL Neutrophils (%) (Auto) 92.9 % 91.5 % Lymphocytes (%) (Auto) 3.2 % 4.9 % Monocytes (%) (Auto) 3.9 % 3.3 % Eosinophils (%) (Auto) 0.0 % 0.0 % Basophils (%) (Auto) 0.0 % 0.3 % Neutrophils # (Auto) 17.4 TH/MM3 20.7 TH/MM3 Lymphocytes # (Auto) 0.6 TH/MM3 1.1 TH/MM3 Monocytes # (Auto) 0.7 TH/MM3 0.8 TH/MM3 Eosinophils # (Auto) 0.0 TH/MM3 0.0 TH/MM3 Basophils # (Auto) 0.0 TH/MM3 0.1 TH/MM3 CBC Comment DIFF FINAL DIFF FINAL Differential Comment Laboratory Tests Test 09/20/17 23:50 09/22/17 09:30 Blood Urea Nitrogen 53 MG/DL 49 MG/DL Creatinine 1.31 MG/DL 1.04 MG/DL Random Glucose 238 MG/DL 205 MG/DL Calcium Level 8.1 MG/DL 7.9 MG/DL Sodium Level 132 MEQ/L 133 MEQ/L Potassium Level 4.9 MEQ/L 5.0 MEQ/L Chloride Level 97 MEQ/L 96 MEQ/L Carbon Dioxide Level 28.0 MEQ/L 29.5 MEQ/L Anion Gap 7 MEQ/L 8 MEQ/L Estimat Glomerular Filtration Rate 57 ML/MIN 75 ML/MIN Imaging Last Impressions Chest X-Ray 09/16/17 0000 Signed Impressions: Service Date/Time: Saturday, September 16, 2017 11:49 - CONCLUSION: 1. Right chest tube out. No pneumothorax. 2. Patchy diffuse bilateral airspace disease without significant change. Jose Francisco Rodriguez MD Physical Exam CONSTITUTIONAL/GENERAL: This is an adequately nourished patient, in no distress. TUBES/LINES/DRAINS: SKIN: No jaundice, rashes, or lesions. Skin temperature appropriate. Not diaphoretic. EYES: Pupils equal and round and reactive. Extraocular motions intact. No scleral icterus. No injection or drainage. Fundi not examined. ENT: moist mucosae CARDIOVASCULAR: Regular rate and rhythm + 2/6 systolicv murmur , gallops, or rubs. No JVD. Peripheral pulses symmetric. RESPIRATORY/CHEST: Symmetric, unlabored respirations.no accessory muscle use some crackles b/b to auscultation. Breath sounds diminished at bases bilaterally. GASTROINTESTINAL: Abdomen soft, non-tender, moderately distended. No hepato- splenomegaly, or palpable masses. No guarding. Bowel sounds present. GENITOURINARY: Without palpable bladder distension. Beckman catheter in place with clear light yellow urine MUSCULOSKELETAL: Extremities without clubbing, cyanosis, 2+ pittingedema. 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 prednisone contributing dc CFTX (comppleted) cont up to one month of Keflex untill fully healed dw Dr Mariposa Garcia,Renee Pham MD Sep 22, 2017 14:35
--- NOTE | 2017-09-22 17:47 | PD.CAR.PN ---
CVT Progress Note Subjective/Hospital Course: A 52-year-old male admitted on the with shortness of breath. The patient has been followed in the past by Dr. Fine for mitral valve regurgitation. Underwent transesophageal echocardiogram on 08/14 which showed EF of 50-55%, normal right ventricular size systolic function. The left atrial size was mildly dilated. He had severe mitral regurgitation. The mitral valve regurgitation jet is directly centrally due to the poor leaflet coaptation. No mitral stenosis. No aortic regurgitation or stenosis. The patient during his admission was also found to have bilateral effusions. He underwent a right thoracentesis on September 13 draining 1800 mL of fluid. He then had a pigtail catheter which drained 500 mL of fluid which was removed. The pleural fluid showed no evidence of malignancy. Again on his last admission he was found to have strep bovis bacteremia secondary to a chronic left heel osteomyelitis which grew out Crystal and also strep bovis. He was treated with Diflucan and ceftriaxone. On this admission his blood cultures showed staph epidermis in one bottle which was probably contaminant and the other blood culture was negative. The patient is followed closely by Dr. Renee Garcia. He does have a wound VAC to that left heel. We were consulted to evaluate for mitral valve regurgitation. 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 He has been wheelchair bound due to the wound on his heel. PAST MEDICAL HISTORY Significant for: 1. Prior CVA. 2. Gastroesophageal reflux disease. 3. Severe mitral regurgitation. 4. Hypertension. 5. Diabetes mellitus, uncontrolled. 6. Coronary artery disease. 7. COPD. 8. History of left heel osteomyelitis with partial calcanectomy. 9. Also recent strep bovis in the wound and Crystal. 10. AUSTEN was negative for vegetation. 09/22 pt now transferred out of ICU, on nasal cannula at 2 liters, getting OOB with PT to stand at side of bed, has weight bearing privileges pt requesting to be evaluated for mitral valve surgery on this admission if possible pt has now been cleared by ID still has wound vac to left heel strenght has improved with get OT consult , continue pt consults possible eval for surgery next week Objective: Vital Signs Date Time Temp Pulse Resp B/P (MAP) Pulse Ox O2 Delivery O2 Flow Rate FiO2 09/22/17 16:00 97.4 96 17 166/71 (102) 99 09/22/17 12:00 96.8 87 16 140/63 (88) 98 09/22/17 09:05 100 Nasal Cannula 4.00 09/22/17 08:00 97.7 89 16 157/68 (97) 99 09/22/17 07:15 100 4.00 09/22/17 04:00 97.3 80 17 139/66 (90) 100 09/22/17 03:22 Nasal Cannula 4.00 09/22/17 00:00 97.4 82 17 145/69 (94) 99 09/21/17 22:22 95 Nasal Cannula 4.00 09/21/17 22:22 96.0 87 18 153/65 (94) 99 09/21/17 20:05 95 Nasal Cannula 4.00 09/21/17 20:00 96.9 85 19 146/92 (110) 97 09/21/17 20:00 Nasal Cannula 4.00 65 09/21/17 20:00 85 09/21/17 18:00 85 Labs: Laboratory Tests Test 09/22/17 09:30 White Blood Count 22.7 TH/MM3 (4.0-11.0) Red Blood Count 3.58 MIL/MM3 (4.50-5.90) Hemoglobin 8.9 GM/DL (13.0-17.0) Hematocrit 27.9 % (39.0-51.0) Mean Corpuscular Volume 77.9 FL (80.0-100.0) Mean Corpuscular Hemoglobin 24.8 PG (27.0-34.0) Mean Corpuscular Hemoglobin Concent 31.8 % (32.0-36.0) Red Cell Distribution Width 21.8 % (11.6-17.2) Platelet Count 384 TH/MM3 (150-450) Mean Platelet Volume 8.7 FL (7.0-11.0) Neutrophils (%) (Auto) 91.5 % (16.0-70.0) Lymphocytes (%) (Auto) 4.9 % (9.0-44.0) Monocytes (%) (Auto) 3.3 % (0.0-8.0) Eosinophils (%) (Auto) 0.0 % (0.0-4.0) Basophils (%) (Auto) 0.3 % (0.0-2.0) Neutrophils # (Auto) 20.7 TH/MM3 (1.8-7.7) Lymphocytes # (Auto) 1.1 TH/MM3 (1.0-4.8) Monocytes # (Auto) 0.8 TH/MM3 (0-0.9) Eosinophils # (Auto) 0.0 TH/MM3 (0-0.4) Basophils # (Auto) 0.1 TH/MM3 (0-0.2) CBC Comment DIFF FINAL Differential Comment Blood Urea Nitrogen 49 MG/DL (7-18) Creatinine 1.04 MG/DL (0.60-1.30) Random Glucose 205 MG/DL (74-106) Calcium Level 7.9 MG/DL (8.5-10.1) Sodium Level 133 MEQ/L (136-145) Potassium Level 5.0 MEQ/L (3.5-5.1) Chloride Level 96 MEQ/L (98-107) Carbon Dioxide Level 29.5 MEQ/L (21.0-32.0) Anion Gap 8 MEQ/L (5-15) Estimat Glomerular Filtration Rate 75 ML/MIN (>89) Result Diagram: 09/22/1792909/22/17929 (1) Severe mitral regurgitation (2) Hospital-acquired pneumonia (3) HTN (hypertension) (4) COPD exacerbation (5) STAN (acute kidney injury) Jesica Lovell Sep 22, 2017 17:47
--- NOTE | 2017-09-22 18:34 | PD.CARD.PN ---
Subjective Subjective Remarks No events overnight SOB better Objective Medications Current Medications Medications (Trade) Dose Ordered Sig/Sumanth Route Start Time Stop Time Status Last Admin (Norvasc) 5 mg BID PO 09/10/17 21:00 09/22/17 09:19 (Vitamin C) 500 mg DAILY PO 09/11/17 09:00 09/22/17 09:19 (Aspirin Chew) 81 mg DAILY PO 09/11/17 09:00 09/22/17 09:19 (Lipitor) 40 mg DAILY PO 09/11/17 09:00 09/22/17 09:19 (Proscar) 5 mg DAILY PO 09/11/17 09:00 09/22/17 09:18 (Diflucan) 200 mg DAILY PO 09/11/17 09:00 09/22/17 09:19 (Neurontin) 600 mg QID PO 09/10/17 18:00 09/22/17 12:29 (Theragran M Tab) 1 tab DAILY PO 09/11/17 09:00 09/22/17 09:18 (Nicotine Gum) 4 mg Q2H PRN CHEW 09/10/17 16:15 (Vasotec Inj) 1.25 mg Q6H PRN IV PUSH 09/10/17 16:30 (Catapres) 0.1 mg Q6H PRN PO 09/10/17 16:30 (Albuterol Neb) 2.5 mg Q2HR NEB PRN NEB 09/10/17 16:30 09/20/17 22:30 (NS Flush) 2 ml UNSCH PRN IV FLUSH 09/10/17 16:30 09/22/17 04:59 (NS Flush) 2 ml BID IV FLUSH 09/10/17 21:00 09/22/17 09:00 (Tylenol) 650 mg Q4H PRN PO 09/10/17 16:30 (Zofran Inj) 4 mg Q6H PRN IVP 09/10/17 16:30 (Tylenol) 650 mg Q6H PRN PO 09/10/17 16:30 ([place] 5-325 Mg) 1 tab Q4H PRN PO 09/10/17 16:30 09/17/17 01:00 (Morphine Inj) 1 mg Q3H PRN IV PUSH 09/10/17 16:30 09/22/17 12:29 (Narcan Inj) 0.4 mg UNSCH PRN IV PUSH 09/10/17 16:30 (Alanna-Colace) 1 tab BID PO 09/10/17 21:00 09/22/17 09:19 (Senokot) 17.2 mg Q12H PRN PO 09/10/17 16:30 09/19/17 09:30 (Dulcolax Supp) 10 mg DAILY PRN RECTAL 09/10/17 16:30 09/21/17 16:00 (Lactulose Liq) 30 ml DAILY PRN PO 09/10/17 16:30 09/19/17 09:30 ([place] 10-325 Mg) 1 tab Q4H PRN PO 09/10/17 17:00 09/22/17 09:18 (Protonix) 40 mg DAILY PO 09/11/17 21:00 09/22/17 09:20 (Ativan Inj) 1 mg Q6H PRN IV PUSH 09/11/17 14:00 09/13/17 17:39 Miscellaneous Information Patient in critical care unit? Ass... [id number] .XX 09/11/17 19:00 (Tums Chew) 500 mg Q6H PRN CHEW 09/13/17 10:30 (Bumex Inj) 1 mg Q8H IV PUSH 09/15/17 17:00 09/22/17 09:20 (D50w (Vial) Inj) 50 ml UNSCH PRN IV PUSH 09/15/17 14:45 (Glucagon Inj) 1 mg UNSCH PRN OTHER 09/15/17 14:45 (NovoLOG SUPPLEMENTAL SCALE) 1 ACHS SLIDING SCALE SQ 09/15/17 17:00 09/22/17 14:17 (Apresoline) 50 mg Q8HR PO 09/19/17 14:00 09/22/17 14:16 (Fleet Mineral Oil Enema) 118 ml DAILY PRN RECTAL 09/20/17 16:30 (Levemir Inj) 44 units BID SQ 09/21/17 21:00 09/22/17 09:22 (SoluMEDROL INJ) 40 mg Q12HR IV PUSH 09/22/17 21:00 (Keflex) 500 mg Q6HR PO 09/22/17 18:00 Vital Signs / I&O Vital Signs Date Time Temp Pulse Resp B/P (MAP) Pulse Ox O2 Delivery O2 Flow Rate FiO2 09/22/17 16:00 97.4 96 17 166/71 (102) 99 09/22/17 12:00 96.8 87 16 140/63 (88) 98 09/22/17 09:05 100 Nasal Cannula 4.00 09/22/17 08:00 97.7 89 16 157/68 (97) 99 09/22/17 07:15 100 4.00 09/22/17 04:00 97.3 80 17 139/66 (90) 100 09/22/17 03:22 Nasal Cannula 4.00 09/22/17 00:00 97.4 82 17 145/69 (94) 99 09/21/17 22:22 95 Nasal Cannula 4.00 09/21/17 22:22 96.0 87 18 153/65 (94) 99 09/21/17 20:05 95 Nasal Cannula 4.00 09/21/17 20:00 96.9 85 19 146/92 (110) 97 09/21/17 20:00 Nasal Cannula 4.00 65 09/21/17 20:00 85 I/O 09/21/17 09/21/17 09/21/17 09/22/17 09/22/17 09/22/17 07:00 15:00 23:00 07:00 15:00 23:00 Intake Total 1420 ml 1540 ml 240 ml 922 ml Output Total 1200 ml 3100 ml 700 ml 1500 ml Balance 220 ml -1560 ml -460 ml -578 ml Intake Oral 1420 ml 1440 ml 240 ml 922 ml IV Total 100 ml Output Urine Total 1200 ml 3100 ml 700 ml 1500 ml Drainage Total 0 ml # Bowel Movements 0 1 0 Physical Exam GENERAL: NAD, AAOx3 SKIN: Warm and dry. HEAD: Atraumatic. Normocephalic. EYES: Pupils equal and round. No scleral icterus. No injection or drainage. ENT: No nasal bleeding or discharge. Mucous membranes pink and moist. NECK: Trachea midline. No JVD. CARDIOVASCULAR: Regular rate and rhythm. 2/6 holosystolic murmur at the apex RESPIRATORY: No accessory muscle use. Decreased breath sounds bilaterally GASTROINTESTINAL: Abdomen soft, non-tender, nondistended. Hepatic and splenic margins not palpable. MUSCULOSKELETAL: Extremities without clubbing, cyanosis, or edema. No obvious deformities. Right radial no hematoma, neurovascularly intact distally. Right brachial no ecchymosis NEUROLOGICAL: Awake and alert. No obvious cranial nerve deficits. Motor grossly within normal limits. Five out of 5 muscle strength in the arms and legs. Normal speech. PSYCHIATRIC: Appropriate mood and affect; insight and judgment normal. Laboratory Laboratory Tests Test 09/22/17 09:30 White Blood Count 22.7 TH/MM3 Red Blood Count 3.58 MIL/MM3 Hemoglobin 8.9 GM/DL Hematocrit 27.9 % Mean Corpuscular Volume 77.9 FL Mean Corpuscular Hemoglobin 24.8 PG Mean Corpuscular Hemoglobin Concent 31.8 % Red Cell Distribution Width 21.8 % Platelet Count 384 TH/MM3 Mean Platelet Volume 8.7 FL Neutrophils (%) (Auto) 91.5 % Lymphocytes (%) (Auto) 4.9 % Monocytes (%) (Auto) 3.3 % Eosinophils (%) (Auto) 0.0 % Basophils (%) (Auto) 0.3 % Neutrophils # (Auto) 20.7 TH/MM3 Lymphocytes # (Auto) 1.1 TH/MM3 Monocytes # (Auto) 0.8 TH/MM3 Eosinophils # (Auto) 0.0 TH/MM3 Basophils # (Auto) 0.1 TH/MM3 CBC Comment DIFF FINAL Differential Comment Blood Urea Nitrogen 49 MG/DL Creatinine 1.04 MG/DL Random Glucose 205 MG/DL Calcium Level 7.9 MG/DL Sodium Level 133 MEQ/L Potassium Level 5.0 MEQ/L Chloride Level 96 MEQ/L Carbon Dioxide Level 29.5 MEQ/L Anion Gap 8 MEQ/L Estimat Glomerular Filtration Rate 75 ML/MIN Assessment and Plan Problem List: (1) Severe mitral regurgitation ICD Codes: I34.0 - Nonrheumatic mitral (valve) insufficiency Status: Acute (2) Hospital-acquired pneumonia ICD Codes: J18.9 - Pneumonia, unspecified organism Status: Acute (3) HTN (hypertension) ICD Codes: I10 - Essential (primary) hypertension Status: Chronic (4) COPD exacerbation ICD Codes: J44.1 - Chronic obstructive pulmonary disease with (acute) exacerbation (5) STAN (acute kidney injury) ICD Codes: N17.9 - Acute kidney failure, unspecified Assessment and Plan 1) Respiratory failure secondary to severe mitral regurgitation 2) CT surgery evaluation for mitral valve repair Discussed with Dr. Beck Cleared by ID Plan for physical therapy to work with him and consider surgery next week 3) No significant CAD on cath 4) Con't diuresis 5) HTN, better controlled 6) Will plan to see on Monday, if concerns over the weekend please call covering physician Marty Fine DO Sep 22, 2017 18:34
[2017-09-22] MEDS: CEPHALEXIN MONOHYDRATE 500 MG CAP PO SCH (18:35)
--- NOTE | 2017-09-22 19:05 | HHI.PR ---
Subjective Remarks 52 YOWM with RF,Pneumonia, Sepsis mild distress no Fever Chest tubes removed had cardiac cath, sig MR On2 LNC Pt seen by , pt wants to have surgery done. Objective Vital Signs Vital Signs Date Time Temp Pulse Resp B/P (MAP) Pulse Ox O2 Delivery O2 Flow Rate FiO2 09/22/17 16:00 97.4 96 17 166/71 (102) 99 09/22/17 12:00 96.8 87 16 140/63 (88) 98 09/22/17 09:05 100 Nasal Cannula 4.00 09/22/17 08:00 97.7 89 16 157/68 (97) 99 09/22/17 07:15 100 4.00 09/22/17 04:00 97.3 80 17 139/66 (90) 100 09/22/17 03:22 Nasal Cannula 4.00 09/22/17 00:00 97.4 82 17 145/69 (94) 99 09/21/17 22:22 95 Nasal Cannula 4.00 09/21/17 22:22 96.0 87 18 153/65 (94) 99 09/21/17 20:05 95 Nasal Cannula 4.00 09/21/17 20:00 96.9 85 19 146/92 (110) 97 09/21/17 20:00 Nasal Cannula 4.00 65 09/21/17 20:00 85 I/O 09/21/17 09/21/17 09/21/17 09/22/17 09/22/17 09/22/17 06:59 14:59 22:59 06:59 14:59 22:59 Intake Total 1420 ml 1540 ml 240 ml 922 ml Output Total 1200 ml 3100 ml 700 ml 1500 ml Balance 220 ml -1560 ml -460 ml -578 ml Intake Oral 1420 ml 1440 ml 240 ml 922 ml IV Total 100 ml Output Urine Total 1200 ml 3100 ml 700 ml 1500 ml Drainage Total 0 ml # Bowel Movements 0 1 0 Result Diagram: 09/22/1792909/22/17929 Objective Remarks GENERAL: MBMN WM on BIPAP SKIN: Warm and dry. HEAD: Normocephalic. EYES: No scleral icterus. No injection or drainage. NECK: Supple, trachea midline. No JVD or lymphadenopathy. CARDIOVASCULAR: Regular rate and rhythm without murmurs, gallops, or rubs. RESPIRATORY: Breath sounds equal bilaterally. No accessory muscle use. GASTROINTESTINAL: Abdomen soft, non-tender, nondistended. MUSCULOSKELETAL: No cyanosis, or edema. BACK: Nontender without obvious deformity. No CVA tenderness. A/P Assessment and Plan Resp Failure, improved COPD Sepsis Pneumonia DM Severe Mitral regurgitation PLAN Supplement 02 with NC Cont Abx Aerosol nebs IV Steroids Use Incentive spirometry. Stable from pulm standpoint Dariel Landry MD Sep 22, 2017 19:05
[2017-09-23] VITALS (8 sets, daily range): BP systolic 136–156; BP diastolic 64–71; PULSE 78–93; RESP 18–20; TEMP 96.5–98.6; O2SAT 95–100
[2017-09-23] MEDS: CEPHALEXIN MONOHYDRATE 500 MG CAP PO SCH ×5 (00:37→23:05)
[2017-09-23] MEDS: SODIUM CHLORIDE 0.9% FLUSH 10 ML FLUSH IV FLUSH PRN (00:39)
[2017-09-23] MEDS: BUMETANIDE INJ 1 MG/4 ML VIAL IV PUSH SCH ×3 (00:39→17:15)
[2017-09-23] MEDS: MORPHINE SULFATE 4 MG/ML INJ IV PUSH PRN ×3 (00:57→20:59)
[2017-09-23] MEDS: ACETAMINOPHEN/HYDROcodone 325 MG/10 MG TAB PO PRN ×2 (04:56→12:41)
[2017-09-23] MEDS: hydrALAZINE HCL 25 MG TAB PO SCH ×3 (04:56→23:05)
[2017-09-23] MEDS: LACTULOSE SYRUP 20 GM/30 ML CUP PO PRN (04:57)
[2017-09-23 05:41] LABS: BICARBONATE 31.3 MEQ/L (21.0-32.0); POTASSIUM 4.5 MEQ/L (3.5-5.1)
[2017-09-23 05:43] LABS: AUTOMATED NEUTROPHIL # 21.2 TH/MM3 (1.8-7.7); BASOPHIL % 0.1 % (0.0-2.0); EOSINOPHIL % 0.1 % (0.0-4.0); HEMATOCRIT 25.4 % (39.0-51.0); HEMO FLAGS DIFF FINAL; LYMPH % 10.4 % (9.0-44.0); LYMPHOCYTE # 2.6 TH/MM3 (1.0-4.8); MEAN CELL VOLUME 77.2 FL (80.0-100.0); MEAN CORPUSCULAR HEMOGLOBIN 25.7 PG (27.0-34.0); MEAN CORPUSCULAR HGB CONC 33.3 % (32.0-36.0); MONO % 3.9 % (0.0-8.0); NEUT % 85.5 % (16.0-70.0); PLATELET COUNT 315 TH/MM3 (150-450); RED BLOOD COUNT 3.29 MIL/MM3 (4.50-5.90); RED CELL DISTRIBUTION WIDTH 21.5 % (11.6-17.2); WHITE BLOOD COUNT 24.7 TH/MM3 (4.0-11.0)
[2017-09-23] MEDS: INSULIN ASPART SUPPLEMENTAL SCALE SQ SCH ×4 (08:00→20:53)
[2017-09-23] MEDS: amLODIPine BESYLATE 5 MG TAB PO SCH ×2 (08:30→20:51)
[2017-09-23] MEDS: methylPREDNISolone SOD SUCC 40 MG/1 ML VIAL IV PUSH SCH ×2 (08:30→20:52)
[2017-09-23] MEDS: PANTOPRAZOLE SOD 40 MG DELAYED RELEASE TAB PO SCH (08:30)
[2017-09-23] MEDS: FINASTERIDE 5 MG TAB PO SCH (08:30)
[2017-09-23] MEDS: DOCUSATE SODIUM 50 MG/SENNA 8.6 MG TAB PO SCH ×2 (08:30→20:52)
[2017-09-23] MEDS: MULTIVITAMINS/MINERALS THERAPEUTIC TAB PO SCH (08:30)
[2017-09-23] MEDS: SODIUM CHLORIDE 0.9% FLUSH 10 ML FLUSH IV FLUSH SCH ×2 (08:30→20:52)
[2017-09-23] MEDS: FLUCONAZOLE 200 MG TAB PO SCH (08:30)
[2017-09-23] MEDS: ASPIRIN 81 MG CHEW TAB PO SCH (08:31)
[2017-09-23] MEDS: ASCORBIC ACID 500 MG TAB PO SCH (08:31)
[2017-09-23] MEDS: ATORVASTATIN 40 MG TAB PO SCH (08:31)
[2017-09-23] MEDS: INSULIN DETEMIR 100 UNITS/ML VIAL SQ SCH ×2 (08:31→20:53)
[2017-09-23] MEDS: GABAPENTIN 300 MG CAP PO SCH ×4 (09:00→20:52)
--- NOTE | 2017-09-23 11:13 | HHI.PR ---
Subjective Remarks Follow-up respiratory failure, mitral valve regurgitation, pneumonia. The patient has no complaints at this time. States that he feels "pretty good". Denies chest pain or dyspnea. Denies nausea, vomiting. Objective Vitals Vital Signs Date Time Temp Pulse Resp B/P (MAP) Pulse Ox O2 Delivery O2 Flow Rate FiO2 09/23/17 08:00 96.8 82 18 136/64 (88) 100 09/23/17 08:00 82 09/23/17 05:03 97.7 78 18 137/71 (93) 100 09/23/17 01:04 98.6 93 18 147/69 (95) 95 09/22/17 21:32 98.1 90 18 141/63 (89) 100 09/22/17 21:00 100 Nasal Cannula 4.00 09/22/17 19:57 89 09/22/17 16:00 97.4 96 17 166/71 (102) 99 09/22/17 12:00 96.8 87 16 140/63 (88) 98 I/O 09/22/17 09/22/17 09/22/17 09/23/17 09/23/17 09/23/17 07:00 15:00 23:00 07:00 15:00 23:00 Intake Total 240 ml 922 ml Output Total 700 ml 1500 ml 0 ml Balance -460 ml -578 ml 0 ml Intake Oral 240 ml 922 ml Output Urine Total 700 ml 1500 ml Drainage Total 0 ml 0 ml # Voids 3 # Bowel Movements 0 1 Result Diagram: 09/23/17 0505 09/23/17 0505 Imaging Last Impressions Chest X-Ray 09/16/17 0000 Signed Impressions: Service Date/Time: Saturday, September 16, 2017 11:49 - CONCLUSION: 1. Right chest tube out. No pneumothorax. 2. Patchy diffuse bilateral airspace disease without significant change. Jose Francisco Rodriguez MD Objective Remarks General: No acute distress. Heart: Regular rate and rhythm. 2/6 systolic murmur. Lungs: Mild crackles at both bases. Breathing is nonlabored. Abdomen: Soft, nontender, nondistended. Extremities: 1+ bilateral lower extremity edema. Left heel wound VAC in place. Psych: Alert and oriented. Procedures BL pigatil catheter chest placement on 09/14 Urinary Catheter: No Vascular Central Line Catheter: No A/P Problem List: (1) Sepsis ICD Code: A41.9 - Sepsis, unspecified organism Status: Acute (2) Hospital-acquired pneumonia ICD Code: J18.9 - Pneumonia, unspecified organism Status: Acute (3) Diabetes mellitus with hyperglycemia ICD Code: E11.65 - Type 2 diabetes mellitus with hyperglycemia (4) STAN (acute kidney injury) ICD Code: N17.9 - Acute kidney failure, unspecified (5) COPD exacerbation ICD Code: J44.1 - Chronic obstructive pulmonary disease with (acute) exacerbation (6) HTN (hypertension) ICD Code: I10 - Essential (primary) hypertension Status: Chronic (7) Severe mitral regurgitation ICD Code: I34.0 - Nonrheumatic mitral (valve) insufficiency Status: Acute Assessment and Plan 1. Acute hypoxemic respiratory failure: Improved. Secondary to pneumonia, COPD exacerbation. Status post bilateral pigtail catheter placement on 09/14/17 for drainage of pleural effusions. Tubes have been removed. 2. Severe mitral valve regurgitation: Appreciate cardiology, cardiothoracic surgery recommendations. Plan to continue physical therapy and consider surgical intervention next week. Patient has been cleared by infectious disease for surgery. 3. Sepsis secondary to healthcare associated pneumonia: Appreciate infectious disease recommendations. Continue antibiotics. 4. 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 Appreciate podiatry recommendations. Wound VAC in place. 5. Diabetes mellitus type 2: Monitor Accu-Cheks and cover with sliding scale insulin. Continue Levemir. 6. Hypertension: Continue amlodipine. 7. DVT prophylaxis: Heparin. Discharge Planning When cleared by cardiology, cardiothoracic surgery, infectious disease, pulmonology. Problem Qualifiers (1) Sepsis: Qualified Codes: A41.9 - Sepsis, unspecified organism Star Cedeño MD Sep 23, 2017 11:13
[2017-09-24] VITALS (8 sets, daily range): BP systolic 130–154; BP diastolic 61–71; PULSE 80–91; RESP 18–20; TEMP 96.3–98.5; O2SAT 95–98
[2017-09-24] MEDS: BUMETANIDE INJ 1 MG/4 ML VIAL IV PUSH SCH ×3 (00:57→18:22)
[2017-09-24 04:45] LABS: BASOPHIL # 0.1 TH/MM3 (0-0.2); BASOPHIL % 0.2 % (0.0-2.0); EOSINOPHIL % 0.1 % (0.0-4.0); HEMATOCRIT 25.3 % (39.0-51.0); HEMO FLAGS DIFF FINAL; LYMPH % 6.2 % (9.0-44.0); LYMPHOCYTE # 1.6 TH/MM3 (1.0-4.8); MEAN CELL VOLUME 77.9 FL (80.0-100.0); MEAN CORPUSCULAR HEMOGLOBIN 25.4 PG (27.0-34.0); MEAN CORPUSCULAR HGB CONC 32.6 % (32.0-36.0); MONO % 2.8 % (0.0-8.0); NEUT % 90.7 % (16.0-70.0); PLATELET COUNT 291 TH/MM3 (150-450); RED BLOOD COUNT 3.25 MIL/MM3 (4.50-5.90); RED CELL DISTRIBUTION WIDTH 21.8 % (11.6-17.2); WHITE BLOOD COUNT 25.3 TH/MM3 (4.0-11.0)
[2017-09-24 04:57] LABS: BICARBONATE 32.3 MEQ/L (21.0-32.0); POTASSIUM 4.3 MEQ/L (3.5-5.1)
[2017-09-24] MEDS: hydrALAZINE HCL 25 MG TAB PO SCH ×3 (05:25→21:59)
[2017-09-24] MEDS: CEPHALEXIN MONOHYDRATE 500 MG CAP PO SCH ×3 (05:25→18:21)
[2017-09-24] MEDS: INSULIN ASPART SUPPLEMENTAL SCALE SQ SCH ×4 (08:00→20:15)
[2017-09-24] MEDS: MULTIVITAMINS/MINERALS THERAPEUTIC TAB PO SCH (09:11)
[2017-09-24] MEDS: ASPIRIN 81 MG CHEW TAB PO SCH (09:11)
[2017-09-24] MEDS: FINASTERIDE 5 MG TAB PO SCH (09:11)
[2017-09-24] MEDS: GABAPENTIN 300 MG CAP PO SCH ×4 (09:12→20:15)
[2017-09-24] MEDS: amLODIPine BESYLATE 5 MG TAB PO SCH ×2 (09:12→20:15)
[2017-09-24] MEDS: FLUCONAZOLE 200 MG TAB PO SCH (09:13)
[2017-09-24] MEDS: ATORVASTATIN 40 MG TAB PO SCH (09:13)
[2017-09-24] MEDS: PANTOPRAZOLE SOD 40 MG DELAYED RELEASE TAB PO SCH (09:13)
[2017-09-24] MEDS: DOCUSATE SODIUM 50 MG/SENNA 8.6 MG TAB PO SCH ×2 (09:13→20:15)
[2017-09-24] MEDS: ASCORBIC ACID 500 MG TAB PO SCH (09:13)
[2017-09-24] MEDS: methylPREDNISolone SOD SUCC 40 MG/1 ML VIAL IV PUSH SCH ×2 (09:15→20:15)
[2017-09-24] MEDS: SODIUM CHLORIDE 0.9% FLUSH 10 ML FLUSH IV FLUSH SCH ×2 (09:21→20:15)
[2017-09-24] MEDS: ACETAMINOPHEN/HYDROcodone 325 MG/10 MG TAB PO PRN ×3 (09:45→18:47)
[2017-09-24] MEDS: INSULIN DETEMIR 100 UNITS/ML VIAL SQ SCH ×2 (09:46→20:15)
[2017-09-24] MEDS: MORPHINE SULFATE 4 MG/ML INJ IV PUSH PRN ×3 (12:45→20:18)
--- NOTE | 2017-09-24 14:55 | HHI.PR ---
Subjective Remarks Follow up respiratory failure, mitral valve regurgitation, pneumonia. Patient is complaining of urinary retention. He states that his abdomen is becoming distended and he is unable to void. No other complaints at this time. Objective Vitals Vital Signs Date Time Temp Pulse Resp B/P (MAP) Pulse Ox O2 Delivery O2 Flow Rate FiO2 09/24/17 12:00 98.5 86 18 144/64 (90) 97 09/24/17 08:00 97.2 82 18 130/63 (85) 98 09/24/17 04:00 96.6 80 20 145/67 (93) 98 09/24/17 00:00 96.3 91 20 154/71 (98) 96 09/23/17 21:04 20 09/23/17 20:45 Nasal Cannula 4.00 09/23/17 20:00 92 09/23/17 20:00 97.3 93 20 141/65 (90) 99 09/23/17 17:51 99 Nasal Cannula 4.00 09/23/17 16:00 97.2 89 18 156/70 (98) 99 I/O 09/23/17 09/23/17 09/23/17 09/24/17 09/24/17 09/24/17 07:00 15:00 23:00 07:00 15:00 23:00 Intake Total 2841 ml 480 ml Output Total 0 ml 3500 ml 1275 ml Balance 0 ml -659 ml -795 ml Intake Oral 2841 ml 480 ml Output Urine Total 3500 ml 1250 ml Drainage Total 0 ml 25 ml # Voids 3 # Bowel Movements 1 2 1 Result Diagram: 09/24/17 0420 09/24/17 0420 Imaging Last Impressions Chest X-Ray 09/16/17 0000 Signed Impressions: Service Date/Time: Saturday, September 16, 2017 11:49 - CONCLUSION: 1. Right chest tube out. No pneumothorax. 2. Patchy diffuse bilateral airspace disease without significant change. Jose Francisco Rodriguez MD Objective Remarks General: No acute distress. Heart: Regular rate and rhythm. 2/6 systolic murmur. Lungs: Mild crackles at both bases. Breathing is nonlabored. Abdomen: Soft, mildly distended, mild tenderness of the lower abdomen. Extremities: 1+ bilateral lower extremity edema. Left heel wound VAC in place. Psych: Alert and oriented. Procedures BL pigatil catheter chest placement on 09/14 Urinary Catheter: No Vascular Central Line Catheter: No A/P Problem List: (1) Sepsis ICD Code: A41.9 - Sepsis, unspecified organism Status: Acute (2) Hospital-acquired pneumonia ICD Code: J18.9 - Pneumonia, unspecified organism Status: Acute (3) Diabetes mellitus with hyperglycemia ICD Code: E11.65 - Type 2 diabetes mellitus with hyperglycemia (4) STAN (acute kidney injury) ICD Code: N17.9 - Acute kidney failure, unspecified (5) COPD exacerbation ICD Code: J44.1 - Chronic obstructive pulmonary disease with (acute) exacerbation (6) HTN (hypertension) ICD Code: I10 - Essential (primary) hypertension Status: Chronic (7) Severe mitral regurgitation ICD Code: I34.0 - Nonrheumatic mitral (valve) insufficiency Status: Acute Assessment and Plan 1. Acute hypoxemic respiratory failure: Improved. Secondary to pneumonia, COPD exacerbation. Status post bilateral pigtail catheter placement on 09/14/17 for drainage of pleural effusions. Tubes have been removed. 2. Severe mitral valve regurgitation: Appreciate cardiology, cardiothoracic surgery recommendations. Plan to continue physical therapy and consider surgical intervention next week. Patient has been cleared by infectious disease for surgery. 3. Sepsis secondary to healthcare associated pneumonia: Appreciate infectious disease recommendations. Continue antibiotics. 4. 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 Appreciate podiatry recommendations. Wound VAC in place. 5. Diabetes mellitus type 2: Monitor Accu-Cheks and cover with sliding scale insulin. Continue Levemir. 6. Hypertension: Continue amlodipine. 7. DVT prophylaxis: Heparin. 8. Urinary retention: Patient describes abdominal bloating and inability to void. We'll check bladder scan and likely need to place Beckman catheter. Check urinalysis. Discharge Planning When cleared by cardiology, cardiothoracic surgery, infectious disease, pulmonology. Problem Qualifiers (1) Sepsis: Qualified Codes: A41.9 - Sepsis, unspecified organism Star Cedeño MD Sep 24, 2017 14:55
[2017-09-24] MEDS: RESP: ALBUTEROL 2.5 MG/3 ML NEB (PRN) NEB (17:38)
[2017-09-24 17:59] LABS: BLOOD, URINE NEG (NEG); COMMENT (UR) CATH-CULT NOT IND; CULTURE IF INDICATED CATH CULTURE NOT IND; GLUCOSE,URINE 150 mg/dL (NEG); KETONE, URINE NEG (NEG); NITRITE,URINE NEG (NEG); PH, URINE 5.5 (5.0-8.5); URINE COLOR LIGHT-YELLOW (YELLW/STRAW)
[2017-09-25] VITALS (8 sets, daily range): BP systolic 126–145; BP diastolic 58–65; PULSE 81–95; RESP 17–19; TEMP 97.4–99.3; O2SAT 92–98
[2017-09-25] MEDS: CEPHALEXIN MONOHYDRATE 500 MG CAP PO SCH ×4 (00:45→18:13)
[2017-09-25] MEDS: BUMETANIDE INJ 1 MG/4 ML VIAL IV PUSH SCH ×3 (00:45→18:12)
[2017-09-25] MEDS: ACETAMINOPHEN/HYDROcodone 325 MG/10 MG TAB PO PRN ×2 (00:52→22:35)
[2017-09-25] MEDS: hydrALAZINE HCL 25 MG TAB PO SCH ×3 (05:28→22:22)
[2017-09-25] MEDS: MORPHINE SULFATE 4 MG/ML INJ IV PUSH PRN (05:34)
[2017-09-25 05:47] LABS: AUTOMATED NEUTROPHIL # 24.3 TH/MM3 (1.8-7.7); BASOPHIL % 0.1 % (0.0-2.0); HEMATOCRIT 24.3 % (39.0-51.0); LYMPH % 7.8 % (9.0-44.0); LYMPHOCYTE # 2.1 TH/MM3 (1.0-4.8); MEAN CELL VOLUME 78.1 FL (80.0-100.0); MEAN CORPUSCULAR HEMOGLOBIN 25.1 PG (27.0-34.0); MEAN CORPUSCULAR HGB CONC 32.1 % (32.0-36.0); NEUT % 89.1 % (16.0-70.0); PLATELET COUNT 260 TH/MM3 (150-450); RED BLOOD COUNT 3.11 MIL/MM3 (4.50-5.90); WHITE BLOOD COUNT 27.3 TH/MM3 (4.0-11.0)
[2017-09-25 05:50] LABS: HEMO FLAGS AUTO DIFF
[2017-09-25 06:12] LABS: BICARBONATE 31.5 MEQ/L (21.0-32.0); POTASSIUM 4.4 MEQ/L (3.5-5.1)
[2017-09-25] MEDS: INSULIN ASPART SUPPLEMENTAL SCALE SQ SCH ×4 (07:57→22:25)
[2017-09-25] MEDS: DOCUSATE SODIUM 50 MG/SENNA 8.6 MG TAB PO SCH ×2 (09:00→22:21)
[2017-09-25] MEDS: GABAPENTIN 300 MG CAP PO SCH ×4 (09:48→22:21)
[2017-09-25] MEDS: FLUCONAZOLE 200 MG TAB PO SCH (09:50)
[2017-09-25] MEDS: ATORVASTATIN 40 MG TAB PO SCH (09:50)
[2017-09-25] MEDS: ASPIRIN 81 MG CHEW TAB PO SCH (09:51)
[2017-09-25] MEDS: PANTOPRAZOLE SOD 40 MG DELAYED RELEASE TAB PO SCH (09:51)
[2017-09-25] MEDS: MULTIVITAMINS/MINERALS THERAPEUTIC TAB PO SCH (09:52)
[2017-09-25] MEDS: FINASTERIDE 5 MG TAB PO SCH (09:52)
[2017-09-25] MEDS: ASCORBIC ACID 500 MG TAB PO SCH (09:53)
[2017-09-25] MEDS: amLODIPine BESYLATE 5 MG TAB PO SCH ×2 (09:53→22:22)
[2017-09-25] MEDS: methylPREDNISolone SOD SUCC 40 MG/1 ML VIAL IV PUSH SCH ×2 (09:54→22:22)
[2017-09-25] MEDS: SODIUM CHLORIDE 0.9% FLUSH 10 ML FLUSH IV FLUSH SCH ×2 (09:56→22:22)
[2017-09-25] MEDS: INSULIN DETEMIR 100 UNITS/ML VIAL SQ SCH ×2 (09:57→22:25)
--- NOTE | 2017-09-25 10:12 | PD.CARD.PN ---
Subjective Subjective Remarks No events over the weekend SOB better Objective Medications Current Medications Medications (Trade) Dose Ordered Sig/Sumanth Route Start Time Stop Time Status Last Admin (Norvasc) 5 mg BID PO 09/10/17 21:00 09/25/17 09:53 (Vitamin C) 500 mg DAILY PO 09/11/17 09:00 09/25/17 09:53 (Aspirin Chew) 81 mg DAILY PO 09/11/17 09:00 09/25/17 09:51 (Lipitor) 40 mg DAILY PO 09/11/17 09:00 09/25/17 09:50 (Proscar) 5 mg DAILY PO 09/11/17 09:00 09/25/17 09:52 (Diflucan) 200 mg DAILY PO 09/11/17 09:00 09/25/17 09:50 (Neurontin) 600 mg QID PO 09/10/17 18:00 09/25/17 09:48 (Theragran M Tab) 1 tab DAILY PO 09/11/17 09:00 09/25/17 09:52 (Nicotine Gum) 4 mg Q2H PRN CHEW 09/10/17 16:15 (Vasotec Inj) 1.25 mg Q6H PRN IV PUSH 09/10/17 16:30 (Catapres) 0.1 mg Q6H PRN PO 09/10/17 16:30 (Albuterol Neb) 2.5 mg Q2HR NEB PRN NEB 09/10/17 16:30 09/24/17 17:38 (NS Flush) 2 ml UNSCH PRN IV FLUSH 09/10/17 16:30 09/23/17 00:39 (NS Flush) 2 ml BID IV FLUSH 09/10/17 21:00 09/25/17 09:56 (Tylenol) 650 mg Q4H PRN PO 09/10/17 16:30 (Zofran Inj) 4 mg Q6H PRN IVP 09/10/17 16:30 (Tylenol) 650 mg Q6H PRN PO 09/10/17 16:30 ([place] 5-325 Mg) 1 tab Q4H PRN PO 09/10/17 16:30 09/17/17 01:00 (Morphine Inj) 1 mg Q3H PRN IV PUSH 09/10/17 16:30 09/25/17 05:34 (Narcan Inj) 0.4 mg UNSCH PRN IV PUSH 09/10/17 16:30 (Alanna-Colace) 1 tab BID PO 09/10/17 21:00 09/24/17 20:15 (Senokot) 17.2 mg Q12H PRN PO 09/10/17 16:30 09/19/17 09:30 (Dulcolax Supp) 10 mg DAILY PRN RECTAL 09/10/17 16:30 09/21/17 16:00 (Lactulose Liq) 30 ml DAILY PRN PO 09/10/17 16:30 09/23/17 04:57 ([place] 10-325 Mg) 1 tab Q4H PRN PO 09/10/17 17:00 09/25/17 00:52 (Protonix) 40 mg DAILY PO 09/11/17 21:00 09/25/17 09:51 (Ativan Inj) 1 mg Q6H PRN IV PUSH 09/11/17 14:00 09/13/17 17:39 Miscellaneous Information Patient in critical care unit? Ass... [id number] .XX 09/11/17 19:00 (Tums Chew) 500 mg Q6H PRN CHEW 09/13/17 10:30 (Bumex Inj) 1 mg Q8H IV PUSH 09/15/17 17:00 09/25/17 09:56 (D50w (Vial) Inj) 50 ml UNSCH PRN IV PUSH 09/15/17 14:45 (Glucagon Inj) 1 mg UNSCH PRN OTHER 09/15/17 14:45 (NovoLOG SUPPLEMENTAL SCALE) 1 ACHS SLIDING SCALE SQ 09/15/17 17:00 09/24/17 20:15 (Apresoline) 50 mg Q8HR PO 09/19/17 14:00 09/25/17 05:28 (Fleet Mineral Oil Enema) 118 ml DAILY PRN RECTAL 09/20/17 16:30 (Levemir Inj) 44 units BID SQ 09/21/17 21:00 09/25/17 09:57 (SoluMEDROL INJ) 40 mg Q12HR IV PUSH 09/22/17 21:00 09/25/17 09:54 (Keflex) 500 mg Q6HR PO 09/22/17 18:00 09/25/17 05:28 Vital Signs / I&O Vital Signs Date Time Temp Pulse Resp B/P (MAP) Pulse Ox O2 Delivery O2 Flow Rate FiO2 09/25/17 07:49 97.4 81 17 126/61 (82) 98 09/25/17 05:39 18 09/25/17 04:00 97.5 85 18 126/58 (80) 97 09/25/17 01:52 20 09/25/17 00:00 98.4 92 18 135/62 (86) 92 09/24/17 20:13 86 09/24/17 20:10 Nasal Cannula 2.00 09/24/17 20:00 97.1 89 20 132/61 (84) 97 09/24/17 19:09 2.00 09/24/17 17:38 95 Nasal Cannula 2.00 09/24/17 16:00 98.1 88 18 131/63 (85) 98 09/24/17 12:00 98.5 86 18 144/64 (90) 97 I/O 09/24/17 09/24/17 09/24/17 09/25/17 09/25/17 09/25/17 06:59 14:59 22:59 06:59 14:59 22:59 Intake Total 480 ml 1200 ml 320 ml 240 ml Output Total 1275 ml 1825 ml 2500 ml Balance -795 ml -625 ml -2180 ml 240 ml Intake Oral 480 ml 1200 ml 320 ml 240 ml Output Urine Total 1250 ml 1775 ml 2500 ml Drainage Total 25 ml 50 ml Bladder Scan Volume Amount 687 ml # Voids 1 # Bowel Movements 1 1 1 Physical Exam GENERAL: NAD, AAOx3 SKIN: Warm and dry. HEAD: Atraumatic. Normocephalic. EYES: Pupils equal and round. No scleral icterus. No injection or drainage. ENT: No nasal bleeding or discharge. Mucous membranes pink and moist. NECK: Trachea midline. No JVD. CARDIOVASCULAR: Regular rate and rhythm. 2/6 holosystolic murmur at the apex RESPIRATORY: No accessory muscle use. Decreased breath sounds bilaterally GASTROINTESTINAL: Abdomen soft, non-tender, nondistended. Hepatic and splenic margins not palpable. MUSCULOSKELETAL: Extremities without clubbing, cyanosis, or edema. No obvious deformities. Right radial no hematoma, neurovascularly intact distally. Right brachial no ecchymosis NEUROLOGICAL: Awake and alert. No obvious cranial nerve deficits. Motor grossly within normal limits. Five out of 5 muscle strength in the arms and legs. Normal speech. PSYCHIATRIC: Appropriate mood and affect; insight and judgment normal. Laboratory Laboratory Tests Test 09/24/17 14:51 09/24/17 16:55 09/25/17 05:30 Nasal Screen MRSA (PCR) MRSA NOT DETECTED Urine Color LIGHT-YELLOW Urine Turbidity CLEAR Urine pH 5.5 Urine Specific [place] 1.007 Urine Protein 100 mg/dL Urine Glucose (UA) 150 mg/dL Urine Ketones NEG mg/dL Urine Occult Blood NEG Urine Nitrite NEG Urine Bilirubin NEG Urine Urobilinogen LESS THAN 2.0 MG/DL Urine Leukocyte Esterase NEG Urine RBC 1 /hpf Urine WBC LESS THAN 1 /hpf Urine Amorphous Sediment RARE Microscopic Urinalysis Comment CATH-CULT NOT IND White Blood Count 27.3 TH/MM3 Red Blood Count 3.11 MIL/MM3 Hemoglobin 7.8 GM/DL Hematocrit 24.3 % Mean Corpuscular Volume 78.1 FL Mean Corpuscular Hemoglobin 25.1 PG Mean Corpuscular Hemoglobin Concent 32.1 % Red Cell Distribution Width 22.0 % Platelet Count 260 TH/MM3 Mean Platelet Volume 8.7 FL Neutrophils (%) (Auto) 89.1 % Lymphocytes (%) (Auto) 7.8 % Monocytes (%) (Auto) 3.0 % Eosinophils (%) (Auto) 0.0 % Basophils (%) (Auto) 0.1 % Neutrophils # (Auto) 24.3 TH/MM3 Lymphocytes # (Auto) 2.1 TH/MM3 Monocytes # (Auto) 0.8 TH/MM3 Eosinophils # (Auto) 0.0 TH/MM3 Basophils # (Auto) 0.0 TH/MM3 CBC Comment AUTO DIFF Blood Urea Nitrogen 45 MG/DL Creatinine 1.05 MG/DL Random Glucose 74 MG/DL Calcium Level 7.7 MG/DL Sodium Level 137 MEQ/L Potassium Level 4.4 MEQ/L Chloride Level 98 MEQ/L Carbon Dioxide Level 31.5 MEQ/L Anion Gap 8 MEQ/L Estimat Glomerular Filtration Rate 74 ML/MIN Assessment and Plan Problem List: (1) Severe mitral regurgitation ICD Codes: I34.0 - Nonrheumatic mitral (valve) insufficiency Status: Acute (2) Hospital-acquired pneumonia ICD Codes: J18.9 - Pneumonia, unspecified organism Status: Acute (3) HTN (hypertension) ICD Codes: I10 - Essential (primary) hypertension Status: Chronic (4) COPD exacerbation ICD Codes: J44.1 - Chronic obstructive pulmonary disease with (acute) exacerbation (5) STAN (acute kidney injury) ICD Codes: N17.9 - Acute kidney failure, unspecified Assessment and Plan 1) Respiratory failure secondary to severe mitral regurgitation 2) CT surgery evaluation for mitral valve repair Discussed with Dr. Beck Cleared by ID Plan for physical therapy to work with him and consider surgery inpatient 3) No significant CAD on cath 4) Con't diuresis Good urinary outputs Oxygen demand down 5) HTN, better controlled Marty Fine DO Sep 25, 2017 10:12
[2017-09-25 10:41] LABS: OVALOCYTES 1+ (NORMAL); SCAN/DIFF AUTO DIFF CONFIRMED
--- NOTE | 2017-09-25 11:06 | HHI.PR ---
Subjective Remarks Follow up leukocytosis, mitral regurgitation, urinary retention. Beckman catheter placed yesterday. Patient states that he is feeling better today. He is hoping to continue working with physical therapy. Objective Vitals Vital Signs Date Time Temp Pulse Resp B/P (MAP) Pulse Ox O2 Delivery O2 Flow Rate FiO2 09/25/17 10:32 98 Nasal Cannula 2.00 09/25/17 07:49 97.4 81 17 126/61 (82) 98 09/25/17 05:39 18 09/25/17 04:00 97.5 85 18 126/58 (80) 97 09/25/17 01:52 20 09/25/17 00:00 98.4 92 18 135/62 (86) 92 09/24/17 20:13 86 09/24/17 20:10 Nasal Cannula 2.00 09/24/17 20:00 97.1 89 20 132/61 (84) 97 09/24/17 19:09 2.00 09/24/17 17:38 95 Nasal Cannula 2.00 09/24/17 16:00 98.1 88 18 131/63 (85) 98 09/24/17 12:00 98.5 86 18 144/64 (90) 97 I/O 09/24/17 09/24/17 09/24/17 09/25/17 09/25/17 09/25/17 07:00 15:00 23:00 07:00 15:00 23:00 Intake Total 480 ml 1200 ml 320 ml 240 ml Output Total 1275 ml 1825 ml 2500 ml Balance -795 ml -625 ml -2180 ml 240 ml Intake Oral 480 ml 1200 ml 320 ml 240 ml Output Urine Total 1250 ml 1775 ml 2500 ml Drainage Total 25 ml 50 ml Bladder Scan Volume Amount 687 ml # Voids 1 # Bowel Movements 1 1 1 Result Diagram: 09/25/17 0530 09/25/17 0530 Imaging Last Impressions Chest X-Ray 09/16/17 0000 Signed Impressions: Service Date/Time: Saturday, September 16, 2017 11:49 - CONCLUSION: 1. Right chest tube out. No pneumothorax. 2. Patchy diffuse bilateral airspace disease without significant change. Jose Francisco Rodriguez MD Objective Remarks General: No acute distress. Heart: Regular rate and rhythm. 2/6 systolic murmur. Lungs: Mild crackles at both bases. Breathing is nonlabored. Abdomen: Soft, mildly distended, mild tenderness of the lower abdomen. Extremities: 1+ bilateral lower extremity edema. Left heel wound VAC in place. Psych: Alert and oriented. Procedures BL pigatil catheter chest placement on 09/14 Urinary Catheter: Yes Assessment to: Continue Beckman insert reason: Obstruction/Retention Vascular Central Line Catheter: No A/P Problem List: (1) Sepsis ICD Code: A41.9 - Sepsis, unspecified organism Status: Acute (2) Hospital-acquired pneumonia ICD Code: J18.9 - Pneumonia, unspecified organism Status: Acute (3) Diabetes mellitus with hyperglycemia ICD Code: E11.65 - Type 2 diabetes mellitus with hyperglycemia (4) STAN (acute kidney injury) ICD Code: N17.9 - Acute kidney failure, unspecified (5) COPD exacerbation ICD Code: J44.1 - Chronic obstructive pulmonary disease with (acute) exacerbation (6) HTN (hypertension) ICD Code: I10 - Essential (primary) hypertension Status: Chronic (7) Severe mitral regurgitation ICD Code: I34.0 - Nonrheumatic mitral (valve) insufficiency Status: Acute Assessment and Plan 1. Acute hypoxemic respiratory failure: Improved. Secondary to pneumonia, COPD exacerbation. Status post bilateral pigtail catheter placement on 09/14/17 for drainage of pleural effusions. Tubes have been removed. 2. Severe mitral valve regurgitation: Appreciate cardiology, cardiothoracic surgery recommendations. Plan to continue physical therapy and consider surgical intervention later this week. Patient has been cleared by infectious disease for surgery. 3. Sepsis secondary to healthcare associated pneumonia: Appreciate infectious disease recommendations. Continue antibiotics. 4. 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 Appreciate podiatry recommendations. Wound VAC in place. 5. Diabetes mellitus type 2: Monitor Accu-Cheks and cover with sliding scale insulin. Continue Levemir. 6. Hypertension: Continue amlodipine. 7. DVT prophylaxis: Heparin. 8. Urinary retention: Patient had greater than 600 mL residual urine on bladder scan. Beckman catheter placed. Good urine output overnight. Consult urology. Add Flomax. Discharge Planning When cleared by cardiology, cardiothoracic surgery, infectious disease, pulmonology. Problem Qualifiers (1) Sepsis: Qualified Codes: A41.9 - Sepsis, unspecified organism Star Cedeño MD Sep 25, 2017 11:06
[2017-09-25] MEDS: TAMSULOSIN HCL 0.4 MG CAP PO SCH (13:38)
--- NOTE | 2017-09-25 19:10 | HHI.PR ---
Subjective Remarks 52 YOWM with RF,Pneumonia, Sepsis mild distress no Fever On2 LNC C/O Constipation Worked with PT Objective Vital Signs Vital Signs Date Time Temp Pulse Resp B/P (MAP) Pulse Ox O2 Delivery O2 Flow Rate FiO2 09/25/17 16:00 98.5 88 19 137/63 (87) 95 09/25/17 12:00 99.3 91 17 145/65 (91) 95 09/25/17 10:32 98 Nasal Cannula 2.00 09/25/17 08:00 Nasal Cannula 4.00 09/25/17 07:49 97.4 81 17 126/61 (82) 98 09/25/17 05:39 18 09/25/17 04:00 97.5 85 18 126/58 (80) 97 09/25/17 01:52 20 09/25/17 00:00 98.4 92 18 135/62 (86) 92 09/24/17 20:13 86 09/24/17 20:10 Nasal Cannula 2.00 09/24/17 20:00 97.1 89 20 132/61 (84) 97 I/O 09/24/17 09/24/17 09/24/17 09/25/17 09/25/17 09/25/17 07:00 15:00 23:00 07:00 15:00 23:00 Intake Total 480 ml 1200 ml 320 ml 240 ml 480 ml Output Total 1275 ml 1825 ml 2500 ml 1800 ml Balance -795 ml -625 ml -2180 ml 240 ml -1320 ml Intake Oral 480 ml 1200 ml 320 ml 240 ml 480 ml Output Urine Total 1250 ml 1775 ml 2500 ml 1800 ml Drainage Total 25 ml 50 ml Bladder Scan Volume Amount 687 ml # Voids 1 # Bowel Movements 1 1 1 0 Result Diagram: 09/25/1752909/25/1730 Objective Remarks GENERAL: MBMN WM on BIPAP SKIN: Warm and dry. HEAD: Normocephalic. EYES: No scleral icterus. No injection or drainage. NECK: Supple, trachea midline. No JVD or lymphadenopathy. CARDIOVASCULAR: Regular rate and rhythm without murmurs, gallops, or rubs. RESPIRATORY: Breath sounds equal bilaterally. No accessory muscle use. GASTROINTESTINAL: Abdomen soft, non-tender, nondistended. MUSCULOSKELETAL: No cyanosis, or edema. BACK: Nontender without obvious deformity. No CVA tenderness. A/P Assessment and Plan Resp Failure, improved COPD Sepsis Pneumonia DM Severe Mitral regurgitation PLAN Supplement 02 with NC Cont Abx Aerosol nebs Use Incentive spirometry. Dulcolax tab, if no result will give suppository. Dariel Landry MD Sep 25, 2017 19:10
[2017-09-25] MEDS ORDERED: BISACODYL EC 5 MG TABEC PO ONE (20:45)
[2017-09-25] MEDS: LACTULOSE SYRUP 20 GM/30 ML CUP PO PRN (22:20)
--- NOTE | 2017-09-25 22:36 | PD.POD ---
Subjective Podiatric Problems s/p partial calcanectomy and achilles tendon debridement, Dr Greer, wound vac intact LLE Pain score: 0 Past Med/Surg/Social History Social History Smoking Status: Former Smoker Objective Vital Signs Vital Signs Date Time Temp Pulse Resp B/P (MAP) Pulse Ox O2 Delivery O2 Flow Rate FiO2 09/25/17 20:00 99.1 95 17 143/64 (90) 98 09/25/17 16:00 98.5 88 19 137/63 (87) 95 09/25/17 12:00 99.3 91 17 145/65 (91) 95 09/25/17 10:32 98 Nasal Cannula 2.00 09/25/17 08:00 Nasal Cannula 4.00 09/25/17 07:49 97.4 81 17 126/61 (82) 98 09/25/17 05:39 18 09/25/17 04:00 97.5 85 18 126/58 (80) 97 09/25/17 01:52 20 09/25/17 00:00 98.4 92 18 135/62 (86) 92 Coded Allergies: *MDRO Multi-Drug Resistant Organism (Verified Adverse Reaction, Unknown, 09/10/17) MRSA (arm wound) - 01/2016 MRSA (blood, urine, wound) - 06/2013 Physical Exam Remarks Wound vac intact and functioning properly LLE Assessment & Plan A/P L foot partial calcanectomy and achilles tendon debridement, Dr Greer Patient may NOT put any weight to L heel at any cost. Must put weight on forefoot only to do minimal walking or transferring due to high risk of creating new areas of ulceration. Must wear surgical shoe L foot when ambulating/transferring to protect. Minimal PT ok if able to allow patient to only bear weight on ball of L foot , and monitor closely for new ulcerations/lesions due to history Continue wound vac. Follow up 2 weeks after d/c Jesus Mancini DPM Sep 25, 2017 22:36
[2017-09-25] MEDS ORDERED: IOHEXOL 350 MG/ML 10 ML VIAL (for RAD DIAG) IVCONTRAST ONE (22:38)
[2017-09-26] VITALS (10 sets, daily range): BP systolic 109–142; BP diastolic 53–65; PULSE 66–94; RESP 17–20; TEMP 96.9–99; O2SAT 91–98
[2017-09-26] MEDS: CEPHALEXIN MONOHYDRATE 500 MG CAP PO SCH ×5 (00:39→23:03)
[2017-09-26] MEDS: MORPHINE SULFATE 4 MG/ML INJ IV PUSH PRN (00:40)
[2017-09-26] MEDS: BUMETANIDE INJ 1 MG/4 ML VIAL IV PUSH SCH ×2 (00:40→08:58)
[2017-09-26] MEDS: hydrALAZINE HCL 25 MG TAB PO SCH ×3 (05:55→22:24)
[2017-09-26] MEDS: ACETAMINOPHEN/HYDROcodone 325 MG/10 MG TAB PO PRN ×5 (05:55→23:03)
[2017-09-26] MEDS: BISACODYL 10 MG SUPP RECTAL PRN (05:55)
[2017-09-26 07:29] LABS: AUTOMATED NEUTROPHIL # 22.3 TH/MM3 (1.8-7.7); BASOPHIL # 0.1 TH/MM3 (0-0.2); BASOPHIL % 0.2 % (0.0-2.0); HEMATOCRIT 22.9 % (39.0-51.0); HEMO FLAGS DIFF FINAL; LYMPH % 5.6 % (9.0-44.0); LYMPHOCYTE # 1.4 TH/MM3 (1.0-4.8); MEAN CELL VOLUME 78.2 FL (80.0-100.0); MEAN CORPUSCULAR HEMOGLOBIN 25.7 PG (27.0-34.0); MEAN CORPUSCULAR HGB CONC 32.8 % (32.0-36.0); MONO % 2.6 % (0.0-8.0); NEUT % 91.6 % (16.0-70.0); PLATELET COUNT 217 TH/MM3 (150-450); RED BLOOD COUNT 2.93 MIL/MM3 (4.50-5.90); WHITE BLOOD COUNT 24.4 TH/MM3 (4.0-11.0)
[2017-09-26 07:57] LABS: BICARBONATE 30.7 MEQ/L (21.0-32.0); POTASSIUM 4.1 MEQ/L (3.5-5.1)
[2017-09-26] MEDS: INSULIN ASPART SUPPLEMENTAL SCALE SQ SCH ×4 (08:00→22:26)
[2017-09-26 08:18] LABS: CALCIUM-PROTEIN CORRECTED 8.6 MG/DL (8.5-10.1)
--- NOTE | 2017-09-26 08:18 | RADRPT ---
EXAM DATE/TIME: 09/25/2017 20:51 [facility] COMPARISON: CHEST SINGLE AP, September 16, 2017, 11:49. INDICATIONS : Pre operative trans aortic valve replacement. IV CONTRAST: 100 cc Omnipaque 350 (iohexol) IV RADIATION DOSE: 44.37 CTDIvol (mGy) ; Patient body habitus MEDICAL HISTORY : Hernia, hiatal. Cardiovascular disease Carcinoma, squamous cell. SURGICAL HISTORY : None. ENCOUNTER: Initial ACUITY: 1 day PAIN SCALE: 0/10 LOCATION: Bilateral chest TECHNIQUE: Volumetric scanning was performed using a multi-row detector CT scanner. The data was post processed with a variety of visualization algorithms including full volume maximum intensity projection, multi -planar sliding thin slab reformation, curved planar reformation, and surface rendering techniques. Using automated exposure control and adjustment of the mA and/or kV according to patient size, radiat ion dose was kept as low as reasonably achievable to obtain optimal diagnostic quality images. DIC OM format image data is available electronically for review and comparison. FINDINGS: CARDIAC: The coronary system is <<co-dominant. Normal vessels without calcification or stenosis. There are no microcalcifications. There is no pericardial effusion AORTIC ROOT/VALVE: 3 cusps are evident with no calcifications. The aortic root measures 4.0 x 3.5 cm. Mid thoracic aorta measures 3.4 x 3.3 cm with no calcifications. THORACIC AORTA: Origin of the great vessels is normal. No evidence of aneurysm, mural thrombus, dissection, mural ca lcification, or stenosis. ABDOMINAL AORTA: No evidence of aneurysm, mural thrombus, dissection, or stenosis. Scattered calcified atheroscleroti c plaques seen most pronounced within the infrarenal aorta and inflow vessels. CELIAC ARTERY: Celiac artery is widely patent. SMA: Superior mesenteric artery is widely patent. RIGHT RENAL ARTERY: Right renal artery is widely patent. LEFT RENAL ARTERY: Left renal artery is widely patent. RIGHT COMMON ILIAC: No evidence of aneurysm, mural thrombus, dissection, or stenosis. Calcified atherosclerotic plaque is seen. The common femoral measures 10 mm. LEFT COMMON ILIAC: No evidence of aneurysm, mural thrombus, dissection, or stenosis. Calcified atherosclerotic plaque is seen. The common femoral measures 9 mm. THORAX: Moderate right and small left pleural effusions with associated passive atelectasis. Diffuse emphysem atous changes. The heart is normal in size. No pericardial effusion. Scattered anterior mediastinal l ymph nodes. The largest lymph node is prevascular and measures 2.3 x 0.9 cm. A right-sided PICC line is looped within the junction of the subclavian vein and internal jugular vein. ABDOMEN: A moderate amount of stool is seen throughout otherwise normal-appearing colon. Stomach and small bow el are unremarkable. Remaining visceral structures are unremarkable. PELVIS: A Beckman is present in the urinary bladder to a decompressed. Calcifications of the seminal vesicles n oted. The prostate gland is either atrophic or surgically absent. CONCLUSION: 1. Scattered calcified plaque throughout the abdominal aorta. No aneurysmal change or hemodynamically significant stenosis. 2. 3 cusped aortic valve without significant calcifications. Sinus of Valsalva measures 4.0 x 3.5 cm. Mid tubular aorta measures 3.4 x 3.3 cm. 3. Moderate right and small left pleural effusion with associated passive atelectasis. 4. Mild mediastinal adenopathy. Toni Bloom Jr., MD on September 26, 2017 at 7:48 Board Certified Radiologist. This report was verified electronically.
[2017-09-26] MEDS: MINERAL OIL ENEMA 118 ML BTL RECTAL PRN (08:55)
[2017-09-26] MEDS: methylPREDNISolone SOD SUCC 40 MG/1 ML VIAL IV PUSH SCH (08:56)
[2017-09-26] MEDS: INSULIN DETEMIR 100 UNITS/ML VIAL SQ SCH ×2 (08:56→22:26)
[2017-09-26] MEDS: ASCORBIC ACID 500 MG TAB PO SCH (08:56)
[2017-09-26] MEDS: FINASTERIDE 5 MG TAB PO SCH (08:56)
[2017-09-26] MEDS: MULTIVITAMINS/MINERALS THERAPEUTIC TAB PO SCH (08:56)
[2017-09-26] MEDS: ATORVASTATIN 40 MG TAB PO SCH (08:56)
[2017-09-26] MEDS: DOCUSATE SODIUM 50 MG/SENNA 8.6 MG TAB PO SCH ×2 (08:57→19:47)
[2017-09-26] MEDS: GABAPENTIN 300 MG CAP PO SCH ×4 (08:57→19:47)
[2017-09-26] MEDS: TAMSULOSIN HCL 0.4 MG CAP PO SCH (08:57)
[2017-09-26] MEDS: FLUCONAZOLE 200 MG TAB PO SCH (08:57)
[2017-09-26] MEDS: ASPIRIN 81 MG CHEW TAB PO SCH (08:57)
[2017-09-26] MEDS: PANTOPRAZOLE SOD 40 MG DELAYED RELEASE TAB PO SCH (08:57)
[2017-09-26] MEDS: SODIUM CHLORIDE 0.9% FLUSH 10 ML FLUSH IV FLUSH SCH ×2 (08:58→19:48)
[2017-09-26] MEDS: amLODIPine BESYLATE 5 MG TAB PO SCH ×2 (08:59→19:47)
--- NOTE | 2017-09-26 10:22 | PD.CONS ---
HPI Service Urology Consult Requested By Urinary retention Reason for Consult 52-year-old gentleman with multiple medical problems including diabetes mellitus and mitral valve disease who was admitted for shortness of breath. Cardiothoracic surgery has seen the patient and there is consideration for cardiac valve replacement surgery during his admission. Patient has been having sporadic voiding symptoms and had been under the care of Dr. Miguelito Aguilar in the past and managed with both finasteride and tamsulosin for presumed BPH. Patient once again developed some difficulty voiding during this hospitalization and a Beckman catheter was placed with evacuation of greater than 600 cc clear urine. Urology consult for further recommendations. Upon further questioning the patient reports that he has not been taking his tamsulosin for greater than 1 month although he has been compliant with the finasteride regimen. Beckman catheter is presently draining clear yellow urine. BUN and creatinine readings were acceptable. Primary Care Physician Rey Hernandez MD Diagnosis: (1) Sepsis ICD Code: A41.9 - Sepsis, unspecified organism (2) Hospital-acquired pneumonia ICD Code: J18.9 - Pneumonia, unspecified organism (3) Diabetes mellitus with hyperglycemia ICD Code: E11.65 - Type 2 diabetes mellitus with hyperglycemia (4) STAN (acute kidney injury) ICD Code: N17.9 - Acute kidney failure, unspecified (5) COPD exacerbation ICD Code: J44.1 - Chronic obstructive pulmonary disease with (acute) exacerbation (6) HTN (hypertension) ICD Code: I10 - Essential (primary) hypertension (7) Severe mitral regurgitation ICD Code: I34.0 - Nonrheumatic mitral (valve) insufficiency Review of Systems Constitutional: DENIES: Fever, Night Sweats Respiratory: COMPLAINS OF: Shortness of breath Gastrointestinal: DENIES: Abdominal pain Genitourinary: DENIES: Hematuria, Dysuria Except as stated in HPI: all other systems reviewed are Neg Past Family Social History Past Medical History History CVA BPH GERD Mitral regurgitation Diabetes mellitus Coronary artery disease COPD Hypertension Past Surgical History Vascular recanalization surgery to left lower extremity Left heel debridement for osteomyelitis Reported Medications Refer to EMR Allergies: Coded Allergies: *MDRO Multi-Drug Resistant Organism (Verified Adverse Reaction, Unknown, 09/10/17) MRSA (arm wound) - 01/2016 MRSA (blood, urine, wound) - 06/2013 Active Ordered Medications Refer to EMR Family History Reviewed and noncontributory Social History Former smoker who recently quit Denies alcohol or intravenous drug abuse history Physical Exam Vital Signs Date Time Temp Pulse Resp B/P (MAP) Pulse Ox O2 Delivery O2 Flow Rate FiO2 09/26/17 08:00 97.6 91 20 138/65 (89) 95 09/26/17 04:00 99.0 94 18 135/63 (87) 91 09/26/17 04:00 99.0 94 18 135/63 (87) 91 09/26/17 00:00 98.6 92 18 134/62 (86) 94 09/25/17 20:00 99.1 95 17 143/64 (90) 98 09/25/17 19:53 94 09/25/17 16:00 98.5 88 19 137/63 (87) 95 09/25/17 12:00 99.3 91 17 145/65 (91) 95 09/25/17 10:32 98 Nasal Cannula 2.00 Physical Exam GENERAL: This is a well-nourished, well-developed patient, in no apparent distress. SKIN: No rashes, ecchymoses or lesions. Cool and dry. HEAD: Atraumatic. Normocephalic. No temporal or scalp tenderness. EYES: Pupils equal round and reactive. Extraocular motions intact. No scleral icterus. No injection or drainage. ENT: Nose without bleeding, purulent drainage or septal hematoma. Throat without erythema, tonsillar hypertrophy or exudate. Uvula midline. Airway patent. NECK: Trachea midline. No JVD or lymphadenopathy. Supple, nontender, no meningeal signs. GASTROINTESTINAL: Abdomen soft, non-tender, nondistended. No hepato-splenomegaly , or palpable masses. No guarding. GENITOURINARY: Bladder not distended. Beckman catheter in place draining clear yellow urine MUSCULOSKELETAL: Wound VAC to left heel NEUROLOGICAL: Awake and alert. Cranial nerves II through XII intact. Motor and sensory grossly within normal limits. Five out of 5 muscle strength in all muscle groups. Normal speech. Laboratory Tests Test 09/26/17 06:26 White Blood Count 24.4 Red Blood Count 2.93 Hemoglobin 7.5 Hematocrit 22.9 Mean Corpuscular Volume 78.2 Mean Corpuscular Hemoglobin 25.7 Mean Corpuscular Hemoglobin Concent 32.8 Red Cell Distribution Width 22.0 Platelet Count 217 Mean Platelet Volume 9.2 Neutrophils (%) (Auto) 91.6 Lymphocytes (%) (Auto) 5.6 Monocytes (%) (Auto) 2.6 Eosinophils (%) (Auto) 0.0 Basophils (%) (Auto) 0.2 Neutrophils # (Auto) 22.3 Lymphocytes # (Auto) 1.4 Monocytes # (Auto) 0.6 Eosinophils # (Auto) 0.0 Basophils # (Auto) 0.1 CBC Comment DIFF FINAL Differential Comment Blood Urea Nitrogen 48 Creatinine 1.20 Random Glucose 117 Total Protein 4.9 Calcium Level 7.4 Sodium Level 136 Potassium Level 4.1 Chloride Level 98 Carbon Dioxide Level 30.7 Anion Gap 7 Estimat Glomerular Filtration Rate 63 Protein Corrected Calcium 8.6 Date/Time Source Procedure Growth Status 09/10/17 15:50 Blood Peripheral Aerobic Blood Culture - Final NO GROWTH IN 5 DAYS Complete 09/10/17 15:50 Blood Peripheral Anaerobic Blood Culture - Final NO GROWTH IN 5 DAYS Complete 09/13/17 13:46 Fluid Pleural Fluid Fungal Smear - Final NO FUNGAL ELEMENTS SEEN. Resulted 09/13/17 13:46 Fluid Pleural Fluid Fungal Culture - Preliminary NO GROWTH IN 1 WEEK Resulted 09/11/17 17:50 Nasal Washing Influenza Types A,B Antigen (ABHISHEK) - Final NEGATIVE FOR FLU A AND B ANTIGEN.... Complete 09/11/17 14:40 Urine Random Urine Legionella Antigen - Final PRESUMPTIVE NEGATIVE FOR LEGIONELLA P... Complete 09/11/17 14:40 Urine Random Urine Streptococcus pneumoniae Antigen (M - Final PRESUMPTIVE NEGATIVE FOR STREPTOCOCCU... Complete Result Diagram: 09/26/17 0626 09/26/17 0626 Imaging Last Impressions Chest CTA 09/25/17 0000 Signed Impressions: Service Date/Time: Monday, September 25, 2017 20:51 - CONCLUSION: 1. Scattered calcified plaque throughout the abdominal aorta. No aneurysmal change or hemodynamically significant stenosis. 2. 3 cusped aortic valve without significant calcifications. Sinus of Valsalva measures 4.0 x 3.5 cm. Mid tubular aorta measures 3.4 x 3.3 cm. 3. Moderate right and small left pleural effusion with associated passive atelectasis. 4. Mild mediastinal adenopathy. Toni Bloom Jr., MD Chest X-Ray 09/16/17 0000 Signed Impressions: Service Date/Time: Saturday, September 16, 2017 11:49 - CONCLUSION: 1. Right chest tube out. No pneumothorax. 2. Patchy diffuse bilateral airspace disease without significant change. Jose Francisco Rodriguez MD Assessment and Plan Assessment and Plan Urologic impression: #1 urinary retention in a patient with a known history of BPH /rule out bladder outlet obstruction #2 urinary retention may be related to neurogenic bladder dysfunction as a consequence of the diabetes mellitus Recommendations: #1 maintain patient on both Flomax and finasteride #2 continue Beckman catheter to gravity drainage #3 will hold off on any further urologic workup until after the cardiac issues are addressed #4 repeat voiding trial once stable from a cardiovascular perspective #5 if patient has problems with the voiding trial, then will require further urologic workup to include cystoscopy and possibly urodynamics #6 please reconsult if needed Problem Qualifiers (1) Sepsis: Qualified Codes: A41.9 - Sepsis, unspecified organism Derek Hamlin MD Sep 26, 2017 10:22
--- NOTE | 2017-09-26 11:35 | HHI.PR ---
Subjective Remarks 52 YOWM with RF,Pneumonia, Sepsis mild distress no Fever On2 LNC C/O Constipation Seen by Urology Pt would prefer to have prostate surgery if possible Objective Vital Signs Vital Signs Date Time Temp Pulse Resp B/P (MAP) Pulse Ox O2 Delivery O2 Flow Rate FiO2 09/26/17 08:00 97.6 91 20 138/65 (89) 95 09/26/17 08:00 96 Nasal Cannula 4.00 09/26/17 08:00 91 09/26/17 04:00 99.0 94 18 135/63 (87) 91 09/26/17 04:00 99.0 94 18 135/63 (87) 91 09/26/17 00:00 98.6 92 18 134/62 (86) 94 09/25/17 20:00 99.1 95 17 143/64 (90) 98 09/25/17 19:53 94 09/25/17 16:00 98.5 88 19 137/63 (87) 95 09/25/17 12:00 99.3 91 17 145/65 (91) 95 I/O 09/25/17 09/25/17 09/25/17 09/26/17 09/26/17 09/26/17 07:00 15:00 23:00 07:00 15:00 23:00 Intake Total 320 ml 240 ml 480 ml 120 ml Output Total 2500 ml 1800 ml 2050 ml Balance -2180 ml 240 ml -1320 ml -2050 ml 120 ml Intake Oral 320 ml 240 ml 480 ml 120 ml Output Urine Total 2500 ml 1800 ml 2050 ml # Bowel Movements 1 0 Result Diagram: 09/26/1762509/26/17625 Objective Remarks GENERAL: MBMN WM on BIPAP SKIN: Warm and dry. HEAD: Normocephalic. EYES: No scleral icterus. No injection or drainage. NECK: Supple, trachea midline. No JVD or lymphadenopathy. CARDIOVASCULAR: Regular rate and rhythm without murmurs, gallops, or rubs. RESPIRATORY: Breath sounds equal bilaterally. No accessory muscle use. GASTROINTESTINAL: Abdomen soft, non-tender, nondistended. MUSCULOSKELETAL: No cyanosis, or edema. BACK: Nontender without obvious deformity. No CVA tenderness. A/P Assessment and Plan Resp Failure, improved COPD Sepsis Pneumonia DM Severe Mitral regurgitation PLAN Supplement 02 with NC Cont Abx Aerosol nebs Use Incentive spirometry. CXR to evaluate pl eff Dariel Landry MD Sep 26, 2017 11:35
[2017-09-26] MEDS: predniSONE 20 MG TAB PO SCH ×2 (12:04→17:25)
--- NOTE | 2017-09-26 12:25 | RADRPT ---
EXAM DATE/TIME: 09/26/2017 11:53 [facility] COMPARISON: CHEST SINGLE AP, September 16, 2017, 11:49. INDICATIONS : Pleural effusion. MEDICAL HISTORY : Hiatal hernia. Cardiovascular disease. Carcinoma, squamous cell. SURGICAL HISTORY : None. ENCOUNTER: Subsequent ACUITY: 2 weeks PAIN SCORE: 0/10 LOCATION: Bilateral chest FINDINGS: A single view of the chest demonstrates small pleural effusions and bibasilar densities. Heart normal in size. The cardiomediastinal contours are unremarkable. Osseous structures are intact. CONCLUSION: Small pleural effusions and bibasilar densities likely atelectasis. Janak Leyva MD on September 26, 2017 at 12:22 Board Certified Radiologist. This report was verified electronically.
--- NOTE | 2017-09-26 14:07 | HHI.PR ---
Subjective Remarks Follow up urinary retention, wound, leukocytosis. The patient states that he feels about the same. He is complaining about pain from buttock wounds. No chest pain or dyspnea. No nausea or vomiting. Objective Vitals Vital Signs Date Time Temp Pulse Resp B/P (MAP) Pulse Ox O2 Delivery O2 Flow Rate FiO2 09/26/17 12:00 97.4 91 18 142/65 (90) 96 09/26/17 08:00 97.6 91 20 138/65 (89) 95 09/26/17 08:00 96 Nasal Cannula 4.00 09/26/17 08:00 91 09/26/17 04:00 99.0 94 18 135/63 (87) 91 09/26/17 04:00 99.0 94 18 135/63 (87) 91 09/26/17 00:00 98.6 92 18 134/62 (86) 94 09/25/17 20:00 99.1 95 17 143/64 (90) 98 09/25/17 19:53 94 09/25/17 16:00 98.5 88 19 137/63 (87) 95 I/O 09/25/17 09/25/17 09/25/17 09/26/17 09/26/17 09/26/17 07:00 15:00 23:00 07:00 15:00 23:00 Intake Total 320 ml 240 ml 480 ml 120 ml Output Total 2500 ml 1800 ml 2050 ml Balance -2180 ml 240 ml -1320 ml -2050 ml 120 ml Intake Oral 320 ml 240 ml 480 ml 120 ml Output Urine Total 2500 ml 1800 ml 2050 ml # Bowel Movements 1 0 Result Diagram: 09/26/17 0626 09/26/17 0626 Imaging Last Impressions Chest X-Ray 09/26/17 0000 Signed Impressions: Service Date/Time: Tuesday, September 26, 2017 11:53 - CONCLUSION: Small pleural effusions and bibasilar densities likely atelectasis. Janak Leyva MD Chest CTA 09/25/17 0000 Signed Impressions: Service Date/Time: Monday, September 25, 2017 20:51 - CONCLUSION: 1. Scattered calcified plaque throughout the abdominal aorta. No aneurysmal change or hemodynamically significant stenosis. 2. 3 cusped aortic valve without significant calcifications. Sinus of Valsalva measures 4.0 x 3.5 cm. Mid tubular aorta measures 3.4 x 3.3 cm. 3. Moderate right and small left pleural effusion with associated passive atelectasis. 4. Mild mediastinal adenopathy. Toni Bloom Jr., MD Objective Remarks General: No acute distress. Heart: Regular rate and rhythm. 2/6 systolic murmur. Lungs: Mild crackles at both bases. Breathing is nonlabored. Abdomen: Soft, mildly distended, mild tenderness of the lower abdomen. Extremities: 1+ bilateral lower extremity edema. Left heel wound VAC in place. Psych: Alert and oriented. Procedures BL pigatil catheter chest placement on 09/14 Urinary Catheter: Yes Assessment to: Remove A/P Problem List: (1) Sepsis ICD Code: A41.9 - Sepsis, unspecified organism Status: Acute (2) Hospital-acquired pneumonia ICD Code: J18.9 - Pneumonia, unspecified organism Status: Acute (3) Diabetes mellitus with hyperglycemia ICD Code: E11.65 - Type 2 diabetes mellitus with hyperglycemia (4) STAN (acute kidney injury) ICD Code: N17.9 - Acute kidney failure, unspecified (5) COPD exacerbation ICD Code: J44.1 - Chronic obstructive pulmonary disease with (acute) exacerbation (6) HTN (hypertension) ICD Code: I10 - Essential (primary) hypertension Status: Chronic (7) Severe mitral regurgitation ICD Code: I34.0 - Nonrheumatic mitral (valve) insufficiency Status: Acute Assessment and Plan 1. Acute hypoxemic respiratory failure: Improved. Secondary to pneumonia, COPD exacerbation. Status post bilateral pigtail catheter placement on 09/14/17 for drainage of pleural effusions. Tubes have been removed. Discussed with Dr. Landry. Repeat chest x-ray shows small pleural effusions. Switch from Solu- Medrol to prednisone. 2. Severe mitral valve regurgitation: Appreciate cardiology, cardiothoracic surgery recommendations. Discussed with Dr. Damon. He recommends discharge to SNF/rehab with outpatient follow up in 3-4 weeks for consideration of surgery at that time. 3. Sepsis secondary to healthcare associated pneumonia: Appreciate infectious disease recommendations. Continue antibiotics. 4. 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 Appreciate podiatry recommendations. Wound VAC in place. 5. Diabetes mellitus type 2: Monitor Accu-Cheks and cover with sliding scale insulin. Continue Levemir. 6. Hypertension: Continue amlodipine. 7. DVT prophylaxis: Heparin. 8. Urinary retention: Appreciate urology recommendations. Continue Flomax. Will try voiding trial today. Discussed with Dr. Hamlin. 9. Decubitus ulcer, buttock: Continue wound care. Rotate patient q2h. Patient states that he has been rotating frequently. Discharge Planning Plan for discharge to SNF soon, possibly tomorrow. Patient has been cleared for discharge by cardiothoracic surgery, urology, pulmonology. Problem Qualifiers (1) Sepsis: Qualified Codes: A41.9 - Sepsis, unspecified organism Star Cedeño MD Sep 26, 2017 14:07
--- NOTE | 2017-09-26 16:43 | PD.CAR.PN ---
CVT Progress Note Subjective/Hospital Course: A 52-year-old male admitted on the with shortness of breath. The patient has been followed in the past by Dr. Fine for mitral valve regurgitation. Underwent transesophageal echocardiogram on 08/14 which showed EF of 50-55%, normal right ventricular size systolic function. The left atrial size was mildly dilated. He had severe mitral regurgitation. The mitral valve regurgitation jet is directly centrally due to the poor leaflet coaptation. No mitral stenosis. No aortic regurgitation or stenosis. The patient during his admission was also found to have bilateral effusions. He underwent a right thoracentesis on September 13 draining 1800 mL of fluid. He then had a pigtail catheter which drained 500 mL of fluid which was removed. The pleural fluid showed no evidence of malignancy. Again on his last admission he was found to have strep bovis bacteremia secondary to a chronic left heel osteomyelitis which grew out Crystal and also strep bovis. He was treated with Diflucan and ceftriaxone. On this admission his blood cultures showed staph epidermis in one bottle which was probably contaminant and the other blood culture was negative. The patient is followed closely by Dr. Renee Garcia. He does have a wound VAC to that left heel. We were consulted to evaluate for mitral valve regurgitation. 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 He has been wheelchair bound due to the wound on his heel. PAST MEDICAL HISTORY Significant for: 1. Prior CVA. 2. Gastroesophageal reflux disease. 3. Severe mitral regurgitation. 4. Hypertension. 5. Diabetes mellitus, uncontrolled. 6. Coronary artery disease. 7. COPD. 8. History of left heel osteomyelitis with partial calcanectomy. 9. Also recent strep bovis in the wound and Crystal. 10. AUSTEN was negative for vegetation. 09/22 pt now transferred out of ICU, on nasal cannula at 2 liters, getting OOB with PT to stand at side of bed, has weight bearing privileges pt requesting to be evaluated for mitral valve surgery on this admission if possible pt has now been cleared by ID still has wound vac to left heel strenght has improved with get OT consult , continue pt consults possible eval for surgery next week 09/26 all data reviewed by Dr Beck, pt is not full weight bearing left foot also upper body weakness, leukocytosis , bilateral pleural effusions R>L recommend rehab x 2-2 week, then re-eval in our office in 4 weeks for possible MVR at that time Objective: Vital Signs Date Time Temp Pulse Resp B/P (MAP) Pulse Ox O2 Delivery O2 Flow Rate FiO2 09/26/17 16:00 98.0 87 19 130/63 (85) 98 09/26/17 14:00 96 Nasal Cannula 4.00 09/26/17 12:00 97.4 91 18 142/65 (90) 96 09/26/17 08:00 97.6 91 20 138/65 (89) 95 09/26/17 08:00 96 Nasal Cannula 4.00 09/26/17 08:00 91 09/26/17 04:00 99.0 94 18 135/63 (87) 91 09/26/17 04:00 99.0 94 18 135/63 (87) 91 09/26/17 00:00 98.6 92 18 134/62 (86) 94 09/25/17 20:00 99.1 95 17 143/64 (90) 98 09/25/17 19:53 94 Labs: Laboratory Tests Test 09/26/17 06:26 White Blood Count 24.4 TH/MM3 (4.0-11.0) Red Blood Count 2.93 MIL/MM3 (4.50-5.90) Hemoglobin 7.5 GM/DL (13.0-17.0) Hematocrit 22.9 % (39.0-51.0) Mean Corpuscular Volume 78.2 FL (80.0-100.0) Mean Corpuscular Hemoglobin 25.7 PG (27.0-34.0) Mean Corpuscular Hemoglobin Concent 32.8 % (32.0-36.0) Red Cell Distribution Width 22.0 % (11.6-17.2) Platelet Count 217 TH/MM3 (150-450) Mean Platelet Volume 9.2 FL (7.0-11.0) Neutrophils (%) (Auto) 91.6 % (16.0-70.0) Lymphocytes (%) (Auto) 5.6 % (9.0-44.0) Monocytes (%) (Auto) 2.6 % (0.0-8.0) Eosinophils (%) (Auto) 0.0 % (0.0-4.0) Basophils (%) (Auto) 0.2 % (0.0-2.0) Neutrophils # (Auto) 22.3 TH/MM3 (1.8-7.7) Lymphocytes # (Auto) 1.4 TH/MM3 (1.0-4.8) Monocytes # (Auto) 0.6 TH/MM3 (0-0.9) Eosinophils # (Auto) 0.0 TH/MM3 (0-0.4) Basophils # (Auto) 0.1 TH/MM3 (0-0.2) CBC Comment DIFF FINAL Differential Comment Blood Urea Nitrogen 48 MG/DL (7-18) Creatinine 1.20 MG/DL (0.60-1.30) Random Glucose 117 MG/DL (74-106) Total Protein 4.9 GM/DL (6.4-8.2) Calcium Level 7.4 MG/DL (8.5-10.1) Sodium Level 136 MEQ/L (136-145) Potassium Level 4.1 MEQ/L (3.5-5.1) Chloride Level 98 MEQ/L (98-107) Carbon Dioxide Level 30.7 MEQ/L (21.0-32.0) Anion Gap 7 MEQ/L (5-15) Estimat Glomerular Filtration Rate 63 ML/MIN (>89) Protein Corrected Calcium 8.6 MG/DL (8.5-10.1) Result Diagram: 09/26/1762509/26/17625 (1) Severe mitral regurgitation (2) Hospital-acquired pneumonia (3) HTN (hypertension) (4) COPD exacerbation (5) STAN (acute kidney injury) Jesica Lovell Sep 26, 2017 16:43
--- NOTE | 2017-09-26 16:43 | PD.WCN.NOT ---
Wound Consult Description: Patient seen on for evaluation of wound management of buttock Communicated with: RIGOBERTO Haynes and Doctor Davidson Recommendation: Please cleanse buttock area gently with soap and water and pat dry. Apply thick layer of Calazime barrier cream BID and PRN. Do not scrub barrier cream from skin when cleaning patient. Okay to leave some barrier cream in place and layer barrier cream on. Additional Information: Patient seen on for evaluation of wound management of buttock area. Patient turned without assistance to L side to reveal blanchable erythematous denuded skin to bilateral gluteal folds, that appears to be incontinence associated dermatitis and not pressure related. Patient reports recent episodes of loose stools. Applied thick layer of Calazime barrier cream to bilateral buttocks and left open to air.Patient was positioned off bottom to offload pressure from messi prominences and for comfort by RIGOBERTO Haynes. Dipti Bergeron [facility] Sep 26, 2017 16:43
[2017-09-26] MEDS: BUMETANIDE 1 MG TAB PO SCH (17:25)
--- NOTE | 2017-09-26 17:54 | PD.CARD.PN ---
Subjective Subjective Remarks Urinary retention SOB better, no chest pain Objective Medications Current Medications Medications (Trade) Dose Ordered Sig/Sumanth Route Start Time Stop Time Status Last Admin (Norvasc) 5 mg BID PO 09/10/17 21:00 09/26/17 08:59 (Vitamin C) 500 mg DAILY PO 09/11/17 09:00 09/26/17 08:56 (Aspirin Chew) 81 mg DAILY PO 09/11/17 09:00 09/26/17 08:57 (Lipitor) 40 mg DAILY PO 09/11/17 09:00 09/26/17 08:56 (Proscar) 5 mg DAILY PO 09/11/17 09:00 09/26/17 08:56 (Diflucan) 200 mg DAILY PO 09/11/17 09:00 09/26/17 08:57 (Neurontin) 600 mg QID PO 09/10/17 18:00 09/26/17 17:26 (Theragran M Tab) 1 tab DAILY PO 09/11/17 09:00 09/26/17 08:56 (Nicotine Gum) 4 mg Q2H PRN CHEW 09/10/17 16:15 (Vasotec Inj) 1.25 mg Q6H PRN IV PUSH 09/10/17 16:30 (Catapres) 0.1 mg Q6H PRN PO 09/10/17 16:30 (Albuterol Neb) 2.5 mg Q2HR NEB PRN NEB 09/10/17 16:30 09/24/17 17:38 (NS Flush) 2 ml UNSCH PRN IV FLUSH 09/10/17 16:30 09/23/17 00:39 (NS Flush) 2 ml BID IV FLUSH 09/10/17 21:00 09/26/17 08:58 (Tylenol) 650 mg Q4H PRN PO 09/10/17 16:30 (Zofran Inj) 4 mg Q6H PRN IVP 09/10/17 16:30 (Tylenol) 650 mg Q6H PRN PO 09/10/17 16:30 ([place] 5-325 Mg) 1 tab Q4H PRN PO 09/10/17 16:30 09/17/17 01:00 (Morphine Inj) 1 mg Q3H PRN IV PUSH 09/10/17 16:30 09/26/17 00:40 (Narcan Inj) 0.4 mg UNSCH PRN IV PUSH 09/10/17 16:30 (Alanna-Colace) 1 tab BID PO 09/10/17 21:00 09/26/17 08:57 (Senokot) 17.2 mg Q12H PRN PO 09/10/17 16:30 09/19/17 09:30 (Dulcolax Supp) 10 mg DAILY PRN RECTAL 09/10/17 16:30 09/26/17 05:55 (Lactulose Liq) 30 ml DAILY PRN PO 09/10/17 16:30 09/25/17 22:20 ([place] 10-325 Mg) 1 tab Q4H PRN PO 09/10/17 17:00 09/26/17 14:49 (Protonix) 40 mg DAILY PO 09/11/17 21:00 09/26/17 08:57 Miscellaneous Information Patient in critical care unit? Ass... Q361D .XX 09/11/17 19:00 (Tums Chew) 500 mg Q6H PRN CHEW 09/13/17 10:30 (D50w (Vial) Inj) 50 ml UNSCH PRN IV PUSH 09/15/17 14:45 (Glucagon Inj) 1 mg UNSCH PRN OTHER 09/15/17 14:45 (NovoLOG SUPPLEMENTAL SCALE) 1 ACHS SLIDING SCALE SQ 09/15/17 17:00 09/26/17 17:00 (Apresoline) 50 mg Q8HR PO 09/19/17 14:00 09/26/17 14:49 (Fleet Mineral Oil Enema) 118 ml DAILY PRN RECTAL 09/20/17 16:30 09/26/17 08:55 (Levemir Inj) 44 units BID SQ 09/21/17 21:00 09/26/17 08:56 (Keflex) 500 mg Q6HR PO 09/22/17 18:00 09/26/17 17:25 (Flomax) 0.4 mg DAILY PO 09/25/17 12:00 09/26/17 08:57 (Deltasone) 20 mg TID PO 09/26/17 13:00 09/26/17 17:25 (Bumetanide) 1 mg BID@18 PO 09/26/17 18:00 09/26/17 17:25 Vital Signs / I&O Vital Signs Date Time Temp Pulse Resp B/P (MAP) Pulse Ox O2 Delivery O2 Flow Rate FiO2 09/26/17 16:00 98.0 87 19 130/63 (85) 98 09/26/17 14:00 96 Nasal Cannula 4.00 09/26/17 12:00 97.4 91 18 142/65 (90) 96 09/26/17 08:00 97.6 91 20 138/65 (89) 95 09/26/17 08:00 96 Nasal Cannula 4.00 09/26/17 08:00 91 09/26/17 04:00 99.0 94 18 135/63 (87) 91 09/26/17 04:00 99.0 94 18 135/63 (87) 91 09/26/17 00:00 98.6 92 18 134/62 (86) 94 09/25/17 20:00 99.1 95 17 143/64 (90) 98 09/25/17 19:53 94 I/O 09/25/17 09/25/17 09/25/17 09/26/17 09/26/17 09/26/17 07:00 15:00 23:00 07:00 15:00 23:00 Intake Total 320 ml 240 ml 480 ml 120 ml Output Total 2500 ml 1800 ml 2050 ml Balance -2180 ml 240 ml -1320 ml -2050 ml 120 ml Intake Oral 320 ml 240 ml 480 ml 120 ml Output Urine Total 2500 ml 1800 ml 2050 ml # Bowel Movements 1 0 Physical Exam GENERAL: NAD, AAOx3 SKIN: Warm and dry. HEAD: Atraumatic. Normocephalic. EYES: Pupils equal and round. No scleral icterus. No injection or drainage. ENT: No nasal bleeding or discharge. Mucous membranes pink and moist. NECK: Trachea midline. No JVD. CARDIOVASCULAR: Regular rate and rhythm. 2/6 holosystolic murmur at the apex RESPIRATORY: No accessory muscle use. Decreased breath sounds bilaterally GASTROINTESTINAL: Abdomen soft, non-tender, nondistended. Hepatic and splenic margins not palpable. MUSCULOSKELETAL: Extremities without clubbing, cyanosis, or edema. No obvious deformities. Right radial no hematoma, neurovascularly intact distally. Right brachial no ecchymosis NEUROLOGICAL: Awake and alert. No obvious cranial nerve deficits. Motor grossly within normal limits. Five out of 5 muscle strength in the arms and legs. Normal speech. PSYCHIATRIC: Appropriate mood and affect; insight and judgment normal. Laboratory Laboratory Tests Test 09/26/17 06:26 White Blood Count 24.4 TH/MM3 Red Blood Count 2.93 MIL/MM3 Hemoglobin 7.5 GM/DL Hematocrit 22.9 % Mean Corpuscular Volume 78.2 FL Mean Corpuscular Hemoglobin 25.7 PG Mean Corpuscular Hemoglobin Concent 32.8 % Red Cell Distribution Width 22.0 % Platelet Count 217 TH/MM3 Mean Platelet Volume 9.2 FL Neutrophils (%) (Auto) 91.6 % Lymphocytes (%) (Auto) 5.6 % Monocytes (%) (Auto) 2.6 % Eosinophils (%) (Auto) 0.0 % Basophils (%) (Auto) 0.2 % Neutrophils # (Auto) 22.3 TH/MM3 Lymphocytes # (Auto) 1.4 TH/MM3 Monocytes # (Auto) 0.6 TH/MM3 Eosinophils # (Auto) 0.0 TH/MM3 Basophils # (Auto) 0.1 TH/MM3 CBC Comment DIFF FINAL Differential Comment Blood Urea Nitrogen 48 MG/DL Creatinine 1.20 MG/DL Random Glucose 117 MG/DL Total Protein 4.9 GM/DL Calcium Level 7.4 MG/DL Sodium Level 136 MEQ/L Potassium Level 4.1 MEQ/L Chloride Level 98 MEQ/L Carbon Dioxide Level 30.7 MEQ/L Anion Gap 7 MEQ/L Estimat Glomerular Filtration Rate 63 ML/MIN Protein Corrected Calcium 8.6 MG/DL Imaging Last 24 hours Impressions Chest X-Ray 09/26/17 0000 Signed Impressions: Service Date/Time: Tuesday, September 26, 2017 11:53 - CONCLUSION: Small pleural effusions and bibasilar densities likely atelectasis. Janak Leyva MD Assessment and Plan Problem List: (1) Severe mitral regurgitation ICD Codes: I34.0 - Nonrheumatic mitral (valve) insufficiency Status: Acute (2) Hospital-acquired pneumonia ICD Codes: J18.9 - Pneumonia, unspecified organism Status: Acute (3) HTN (hypertension) ICD Codes: I10 - Essential (primary) hypertension Status: Chronic (4) COPD exacerbation ICD Codes: J44.1 - Chronic obstructive pulmonary disease with (acute) exacerbation (5) STAN (acute kidney injury) ICD Codes: N17.9 - Acute kidney failure, unspecified Assessment and Plan 1) Respiratory failure secondary to severe mitral regurgitation 2) CT surgery evaluation for mitral valve repair Discussed with Dr. Beck Cleared by ID Now plan on rehab if possible, then reevaluate in the office Patient not ready for rehab at this time 3) No significant CAD on cath 4) Con't diuresis Good urinary outputs Oxygen demand down 5) HTN, better controlled Marty Fine DO Sep 26, 2017 17:54
[2017-09-26] MEDS: RESP: ALBUTEROL 2.5 MG/3 ML NEB (PRN) NEB (21:54)
[2017-09-27] VITALS (9 sets, daily range): BP systolic 114–149; BP diastolic 58–63; PULSE 76–96; RESP 16–18; TEMP 95.8–97; O2SAT 91–96
[2017-09-27] MEDS: hydrALAZINE HCL 25 MG TAB PO SCH ×3 (05:56→23:07)
[2017-09-27] MEDS: ACETAMINOPHEN/HYDROcodone 325 MG/10 MG TAB PO PRN ×3 (05:56→20:50)
[2017-09-27] MEDS: CEPHALEXIN MONOHYDRATE 500 MG CAP PO SCH ×4 (05:57→23:07)
[2017-09-27 06:59] LABS: AUTOMATED NEUTROPHIL # 19.7 TH/MM3 (1.8-7.7); EOSINOPHIL % 0.1 % (0.0-4.0); HEMATOCRIT 22.8 % (39.0-51.0); HEMO FLAGS DIFF FINAL; LYMPH % 9.2 % (9.0-44.0); LYMPHOCYTE # 2.1 TH/MM3 (1.0-4.8); MEAN CORPUSCULAR HEMOGLOBIN 25.7 PG (27.0-34.0); MEAN CORPUSCULAR HGB CONC 32.9 % (32.0-36.0); MONO % 4.1 % (0.0-8.0); NEUT % 86.6 % (16.0-70.0); PLATELET COUNT 193 TH/MM3 (150-450); RED BLOOD COUNT 2.93 MIL/MM3 (4.50-5.90); WHITE BLOOD COUNT 22.8 TH/MM3 (4.0-11.0)
[2017-09-27 07:09] LABS: BICARBONATE 29.6 MEQ/L (21.0-32.0); POTASSIUM 4.1 MEQ/L (3.5-5.1)
[2017-09-27] MEDS: INSULIN ASPART SUPPLEMENTAL SCALE SQ SCH ×4 (08:00→23:10)
[2017-09-27] MEDS: ATORVASTATIN 40 MG TAB PO SCH (09:00)
[2017-09-27] MEDS: INSULIN DETEMIR 100 UNITS/ML VIAL SQ SCH ×2 (09:44→21:00)
[2017-09-27] MEDS: SODIUM CHLOR 0.9% 1000 ML INJ 1,000 ML IV SCH (09:46)
[2017-09-27] MEDS: PANTOPRAZOLE SOD 40 MG DELAYED RELEASE TAB PO SCH (09:48)
[2017-09-27] MEDS: DOCUSATE SODIUM 50 MG/SENNA 8.6 MG TAB PO SCH ×2 (09:48→20:41)
[2017-09-27] MEDS: predniSONE 20 MG TAB PO SCH ×3 (09:48→17:47)
[2017-09-27] MEDS: FLUCONAZOLE 200 MG TAB PO SCH (09:48)
[2017-09-27] MEDS: GABAPENTIN 300 MG CAP PO SCH ×4 (09:48→20:41)
[2017-09-27] MEDS: ASPIRIN 81 MG CHEW TAB PO SCH (09:48)
[2017-09-27] MEDS: amLODIPine BESYLATE 5 MG TAB PO SCH ×2 (09:49→20:41)
[2017-09-27] MEDS: BUMETANIDE 1 MG TAB PO SCH ×2 (09:49→17:47)
[2017-09-27] MEDS: ASCORBIC ACID 500 MG TAB PO SCH (09:49)
[2017-09-27] MEDS: TAMSULOSIN HCL 0.4 MG CAP PO SCH (09:49)
[2017-09-27] MEDS: MULTIVITAMINS/MINERALS THERAPEUTIC TAB PO SCH (09:49)
[2017-09-27] MEDS: FINASTERIDE 5 MG TAB PO SCH (09:49)
[2017-09-27] MEDS: SODIUM CHLORIDE 0.9% FLUSH 10 ML FLUSH IV FLUSH SCH ×2 (09:53→20:42)
[2017-09-27] MEDS: RESP: ALBUTEROL 2.5 MG/3 ML NEB (PRN) NEB ×3 (11:24→20:53)
[2017-09-27] MEDS: MORPHINE SULFATE 4 MG/ML INJ IV PUSH PRN ×2 (11:33→23:08)
--- NOTE | 2017-09-27 13:45 | HHI.PR ---
Subjective Remarks Follow-up renal insufficiency, hyponatremia. Patient has no specific complaints at this time. Denies chest pain, dyspnea, nausea, vomiting. Objective Vitals Vital Signs Date Time Temp Pulse Resp B/P (MAP) Pulse Ox O2 Delivery O2 Flow Rate FiO2 09/27/17 12:00 95.8 89 16 126/58 (80) 94 09/27/17 11:38 17 09/27/17 11:25 92 Nasal Cannula 4.00 09/27/17 11:04 18 09/27/17 08:10 80 09/27/17 08:10 91 Nasal Cannula 4.00 Humidified 09/27/17 08:00 97.0 81 16 122/58 (79) 91 09/27/17 04:00 96.5 90 17 134/62 (86) 94 09/27/17 00:00 97.0 76 17 114/60 (78) 96 09/26/17 22:22 97.5 91 137/63 (87) 95 09/26/17 21:51 96 Nasal Cannula 3.00 09/26/17 20:12 88 09/26/17 20:00 Nasal Cannula 3.00 Humidified 09/26/17 20:00 97.1 88 17 122/58 (79) 97 09/26/17 16:00 98.0 87 19 130/63 (85) 98 09/26/17 14:00 96 Nasal Cannula 4.00 I/O 09/26/17 09/26/17 09/26/17 09/27/17 09/27/17 09/27/17 07:00 15:00 23:00 07:00 15:00 23:00 Intake Total 120 ml 960 ml 480 ml Output Total 2050 ml 1100 ml 875 ml Balance -2050 ml 120 ml -140 ml -395 ml Intake Oral 120 ml 960 ml 480 ml Output Urine Total 2050 ml 1100 ml 850 ml Drainage Total 25 ml # Bowel Movements 1 Result Diagram: 09/27/17 0600 09/27/17 0600 Imaging Last Impressions Chest X-Ray 09/26/17 0000 Signed Impressions: Service Date/Time: Tuesday, September 26, 2017 11:53 - CONCLUSION: Small pleural effusions and bibasilar densities likely atelectasis. Janak Leyva MD Chest CTA 09/25/17 0000 Signed Impressions: Service Date/Time: Monday, September 25, 2017 20:51 - CONCLUSION: 1. Scattered calcified plaque throughout the abdominal aorta. No aneurysmal change or hemodynamically significant stenosis. 2. 3 cusped aortic valve without significant calcifications. Sinus of Valsalva measures 4.0 x 3.5 cm. Mid tubular aorta measures 3.4 x 3.3 cm. 3. Moderate right and small left pleural effusion with associated passive atelectasis. 4. Mild mediastinal adenopathy. Toni Bloom Jr., MD Objective Remarks General: No acute distress. Heart: Regular rate and rhythm. 2/6 systolic murmur. Lungs: Mild crackles at both bases. Breathing is nonlabored. Abdomen: Soft, mildly distended, mild tenderness of the lower abdomen. Extremities: 1+ bilateral lower extremity edema. Left heel wound VAC in place. Psych: Alert and oriented. Procedures BL pigatil catheter chest placement on 09/14 Urinary Catheter: Yes Assessment to: Remove Vascular Central Line Catheter: Yes Assessment to: Continue Line: PICC A/P Problem List: (1) Sepsis ICD Code: A41.9 - Sepsis, unspecified organism Status: Acute (2) Hospital-acquired pneumonia ICD Code: J18.9 - Pneumonia, unspecified organism Status: Acute (3) Diabetes mellitus with hyperglycemia ICD Code: E11.65 - Type 2 diabetes mellitus with hyperglycemia (4) STAN (acute kidney injury) ICD Code: N17.9 - Acute kidney failure, unspecified (5) COPD exacerbation ICD Code: J44.1 - Chronic obstructive pulmonary disease with (acute) exacerbation (6) HTN (hypertension) ICD Code: I10 - Essential (primary) hypertension Status: Chronic (7) Severe mitral regurgitation ICD Code: I34.0 - Nonrheumatic mitral (valve) insufficiency Status: Acute Assessment and Plan 1. Acute hypoxemic respiratory failure: Improved. Secondary to pneumonia, COPD exacerbation. Status post bilateral pigtail catheter placement on 09/14/17 for drainage of pleural effusions. Tubes have been removed. Discussed with Dr. Landry. Repeat chest x-ray shows small pleural effusions. Continue prednisone. 2. Severe mitral valve regurgitation: Appreciate cardiology, cardiothoracic surgery recommendations. Discussed with Dr. Damon. He recommends discharge to SNF/rehab with outpatient follow up in 3-4 weeks for consideration of surgery at that time. 3. Sepsis secondary to healthcare associated pneumonia: Appreciate infectious disease recommendations. Continue antibiotics. 4. 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 Appreciate podiatry recommendations. Wound VAC in place. 5. Diabetes mellitus type 2: Monitor Accu-Cheks and cover with sliding scale insulin. Continue Levemir. 6. Hypertension: Continue amlodipine. 7. DVT prophylaxis: Heparin. 8. Urinary retention: Appreciate urology recommendations. Continue Flomax. Will remove Beckman and try voiding trial today. 9. Decubitus ulcer, buttock: Continue wound care. Rotate patient q2h. Patient states that he has been rotating frequently. 10. Acute renal insufficiency, hyponatremia: Normal saline. Will need to be cautious with IV fluids. Discharge Planning Plan for discharge to SNF soon, possibly tomorrow. Patient has been cleared for discharge by cardiothoracic surgery, urology, pulmonology. Problem Qualifiers (1) Sepsis: Qualified Codes: A41.9 - Sepsis, unspecified organism Star Cedeño MD Sep 27, 2017 13:45
[2017-09-27] MEDS: MINERAL OIL ENEMA 118 ML BTL RECTAL PRN (15:01)
[2017-09-27] MEDS: LACTULOSE SYRUP 20 GM/30 ML CUP PO PRN (15:05)
--- NOTE | 2017-09-27 15:55 | HHI.PR ---
Subjective Remarks 52 YOWM with RF,Pneumonia, Sepsis mild distress no Fever On2 LNC C/O Constipation Seen by Urology C/o Constipation Objective Vital Signs Vital Signs Date Time Temp Pulse Resp B/P (MAP) Pulse Ox O2 Delivery O2 Flow Rate FiO2 09/27/17 12:00 95.8 89 16 126/58 (80) 94 09/27/17 11:38 17 09/27/17 11:25 92 Nasal Cannula 4.00 09/27/17 11:04 18 09/27/17 08:10 80 09/27/17 08:10 91 Nasal Cannula 4.00 Humidified 09/27/17 08:00 97.0 81 16 122/58 (79) 91 09/27/17 04:00 96.5 90 17 134/62 (86) 94 09/27/17 00:00 97.0 76 17 114/60 (78) 96 09/26/17 22:22 97.5 91 137/63 (87) 95 09/26/17 21:51 96 Nasal Cannula 3.00 09/26/17 20:12 88 09/26/17 20:00 Nasal Cannula 3.00 Humidified 09/26/17 20:00 97.1 88 17 122/58 (79) 97 09/26/17 16:00 98.0 87 19 130/63 (85) 98 I/O 09/26/17 09/26/17 09/26/17 09/27/17 09/27/17 09/27/17 07:00 15:00 23:00 07:00 15:00 23:00 Intake Total 120 ml 960 ml 480 ml Output Total 2050 ml 1100 ml 875 ml Balance -2050 ml 120 ml -140 ml -395 ml Intake Oral 120 ml 960 ml 480 ml Output Urine Total 2050 ml 1100 ml 850 ml Drainage Total 25 ml # Bowel Movements 1 Result Diagram: 09/27/17 0600 09/27/17 0600 Objective Remarks GENERAL: MBMN WM on BIPAP SKIN: Warm and dry. HEAD: Normocephalic. EYES: No scleral icterus. No injection or drainage. NECK: Supple, trachea midline. No JVD or lymphadenopathy. CARDIOVASCULAR: Regular rate and rhythm without murmurs, gallops, or rubs. RESPIRATORY: Breath sounds equal bilaterally. No accessory muscle use. GASTROINTESTINAL: Abdomen soft, non-tender, nondistended. MUSCULOSKELETAL: No cyanosis, or edema. BACK: Nontender without obvious deformity. No CVA tenderness. A/P Assessment and Plan Resp Failure, improved COPD Sepsis Pneumonia DM Severe Mitral regurgitation PLAN Supplement 02 with NC Cont Abx Aerosol nebs Use Incentive spirometry. CXR to evaluate pl eff going to get enema Dariel Landry MD Sep 27, 2017 15:55
[2017-09-27 16:03] LABS: POTASSIUM 4.9 MEQ/L (3.5-5.1)
--- NOTE | 2017-09-27 21:05 | PD.CARD.PN ---
Subjective Subjective Remarks No chest pain SOB somewhat worse today Objective Medications Current Medications Medications (Trade) Dose Ordered Sig/Sumanth Route Start Time Stop Time Status Last Admin (Norvasc) 5 mg BID PO 09/10/17 21:00 09/27/17 20:41 (Vitamin C) 500 mg DAILY PO 09/11/17 09:00 09/27/17 09:49 (Aspirin Chew) 81 mg DAILY PO 09/11/17 09:00 09/27/17 09:48 (Lipitor) 40 mg DAILY PO 09/11/17 09:00 09/27/17 09:00 (Proscar) 5 mg DAILY PO 09/11/17 09:00 09/27/17 09:49 (Diflucan) 200 mg DAILY PO 09/11/17 09:00 09/27/17 09:48 (Neurontin) 600 mg QID PO 09/10/17 18:00 09/27/17 20:41 (Theragran M Tab) 1 tab DAILY PO 09/11/17 09:00 09/27/17 09:49 (Nicotine Gum) 4 mg Q2H PRN CHEW 09/10/17 16:15 (Vasotec Inj) 1.25 mg Q6H PRN IV PUSH 09/10/17 16:30 (Catapres) 0.1 mg Q6H PRN PO 09/10/17 16:30 (Albuterol Neb) 2.5 mg Q2HR NEB PRN NEB 09/10/17 16:30 09/27/17 20:53 (NS Flush) 2 ml UNSCH PRN IV FLUSH 09/10/17 16:30 09/23/17 00:39 (NS Flush) 2 ml BID IV FLUSH 09/10/17 21:00 09/27/17 20:42 (Tylenol) 650 mg Q4H PRN PO 09/10/17 16:30 (Zofran Inj) 4 mg Q6H PRN IVP 09/10/17 16:30 (Tylenol) 650 mg Q6H PRN PO 09/10/17 16:30 ([place] 5-325 Mg) 1 tab Q4H PRN PO 09/10/17 16:30 09/17/17 01:00 (Morphine Inj) 1 mg Q3H PRN IV PUSH 09/10/17 16:30 09/27/17 11:33 (Narcan Inj) 0.4 mg UNSCH PRN IV PUSH 09/10/17 16:30 (Alanna-Colace) 1 tab BID PO 09/10/17 21:00 09/27/17 20:41 (Senokot) 17.2 mg Q12H PRN PO 09/10/17 16:30 09/19/17 09:30 (Dulcolax Supp) 10 mg DAILY PRN RECTAL 09/10/17 16:30 09/26/17 05:55 (Lactulose Liq) 30 ml DAILY PRN PO 09/10/17 16:30 09/27/17 15:05 ([place] 10-325 Mg) 1 tab Q4H PRN PO 09/10/17 17:00 09/27/17 20:50 (Protonix) 40 mg DAILY PO 09/11/17 21:00 09/27/17 09:48 Miscellaneous Information Patient in critical care unit? Ass... Q361D .XX 09/11/17 19:00 (Tums Chew) 500 mg Q6H PRN CHEW 09/13/17 10:30 (D50w (Vial) Inj) 50 ml UNSCH PRN IV PUSH 09/15/17 14:45 (Glucagon Inj) 1 mg UNSCH PRN OTHER 09/15/17 14:45 (NovoLOG SUPPLEMENTAL SCALE) 1 ACHS SLIDING SCALE SQ 09/15/17 17:00 09/26/17 22:26 (Apresoline) 50 mg Q8HR PO 09/19/17 14:00 09/27/17 13:09 (Fleet Mineral Oil Enema) 118 ml DAILY PRN RECTAL 09/20/17 16:30 09/27/17 15:01 (Levemir Inj) 44 units BID SQ 09/21/17 21:00 09/27/17 09:44 (Keflex) 500 mg Q6HR PO 09/22/17 18:00 09/27/17 17:47 (Flomax) 0.4 mg DAILY PO 09/25/17 12:00 09/27/17 09:49 (Deltasone) 20 mg TID PO 09/26/17 13:00 09/27/17 17:47 (Bumetanide) 1 mg BID@18 PO 09/26/17 18:00 09/27/17 17:47 Sodium Chloride 1,000 ml @ 50 mls/hr Q20H IV 09/27/17 07:45 09/27/17 09:46 Vital Signs / I&O Vital Signs Date Time Temp Pulse Resp B/P (MAP) Pulse Ox O2 Delivery O2 Flow Rate FiO2 09/27/17 16:00 96.3 95 16 149/63 (91) 95 09/27/17 12:00 95.8 89 16 126/58 (80) 94 09/27/17 11:38 17 09/27/17 11:25 92 Nasal Cannula 4.00 09/27/17 11:04 18 09/27/17 08:10 80 09/27/17 08:10 91 Nasal Cannula 4.00 Humidified 09/27/17 08:00 97.0 81 16 122/58 (79) 91 09/27/17 04:00 96.5 90 17 134/62 (86) 94 09/27/17 00:00 97.0 76 17 114/60 (78) 96 09/26/17 22:22 97.5 91 137/63 (87) 95 09/26/17 21:51 96 Nasal Cannula 3.00 I/O 09/26/17 09/26/17 09/26/17 09/27/17 09/27/17 09/27/17 07:00 15:00 23:00 07:00 15:00 23:00 Intake Total 120 ml 960 ml 480 ml 600 ml Output Total 2050 ml 1100 ml 875 ml 1600 ml Balance -2050 ml 120 ml -140 ml -395 ml -1000 ml Intake Oral 120 ml 960 ml 480 ml 600 ml Output Urine Total 2050 ml 1100 ml 850 ml 1600 ml Drainage Total 25 ml # Bowel Movements 1 0 Physical Exam GENERAL: NAD, AAOx3 SKIN: Warm and dry. HEAD: Atraumatic. Normocephalic. EYES: Pupils equal and round. No scleral icterus. No injection or drainage. ENT: No nasal bleeding or discharge. Mucous membranes pink and moist. NECK: Trachea midline. No JVD. CARDIOVASCULAR: Regular rate and rhythm. 2/6 holosystolic murmur at the apex RESPIRATORY: No accessory muscle use. Decreased breath sounds bilaterally GASTROINTESTINAL: Abdomen soft, non-tender, nondistended. Hepatic and splenic margins not palpable. MUSCULOSKELETAL: Extremities without clubbing, cyanosis, or edema. No obvious deformities. Right radial no hematoma, neurovascularly intact distally. Right brachial no ecchymosis NEUROLOGICAL: Awake and alert. No obvious cranial nerve deficits. Motor grossly within normal limits. Five out of 5 muscle strength in the arms and legs. Normal speech. PSYCHIATRIC: Appropriate mood and affect; insight and judgment normal. Laboratory Laboratory Tests Test 09/27/17 06:00 09/27/17 15:13 White Blood Count 22.8 TH/MM3 Red Blood Count 2.93 MIL/MM3 Hemoglobin 7.5 GM/DL Hematocrit 22.8 % Mean Corpuscular Volume 78.0 FL Mean Corpuscular Hemoglobin 25.7 PG Mean Corpuscular Hemoglobin Concent 32.9 % Red Cell Distribution Width 22.0 % Platelet Count 193 TH/MM3 Mean Platelet Volume 9.2 FL Neutrophils (%) (Auto) 86.6 % Lymphocytes (%) (Auto) 9.2 % Monocytes (%) (Auto) 4.1 % Eosinophils (%) (Auto) 0.1 % Basophils (%) (Auto) 0.0 % Neutrophils # (Auto) 19.7 TH/MM3 Lymphocytes # (Auto) 2.1 TH/MM3 Monocytes # (Auto) 0.9 TH/MM3 Eosinophils # (Auto) 0.0 TH/MM3 Basophils # (Auto) 0.0 TH/MM3 CBC Comment DIFF FINAL Differential Comment Blood Urea Nitrogen 55 MG/DL 54 MG/DL Creatinine 1.40 MG/DL 1.36 MG/DL Random Glucose 144 MG/DL 118 MG/DL Calcium Level 7.6 MG/DL 7.8 MG/DL Sodium Level 128 MEQ/L 125 MEQ/L Potassium Level 4.1 MEQ/L 4.9 MEQ/L Chloride Level 90 MEQ/L 88 MEQ/L Carbon Dioxide Level 29.6 MEQ/L 27.0 MEQ/L Anion Gap 8 MEQ/L 10 MEQ/L Estimat Glomerular Filtration Rate 53 ML/MIN 55 ML/MIN Assessment and Plan Problem List: (1) Severe mitral regurgitation ICD Codes: I34.0 - Nonrheumatic mitral (valve) insufficiency Status: Acute (2) Hospital-acquired pneumonia ICD Codes: J18.9 - Pneumonia, unspecified organism Status: Acute (3) HTN (hypertension) ICD Codes: I10 - Essential (primary) hypertension Status: Chronic (4) COPD exacerbation ICD Codes: J44.1 - Chronic obstructive pulmonary disease with (acute) exacerbation (5) STAN (acute kidney injury) ICD Codes: N17.9 - Acute kidney failure, unspecified Assessment and Plan 1) Respiratory failure secondary to severe mitral regurgitation 2) CT surgery evaluation for mitral valve repair Discussed with Dr. Beck Cleared by ID Now plan on rehab if possible, then reevaluate in the office Patient not ready for rehab at this time, still with significant SOB 3) No significant CAD on cath 4) Con't diuresis Good urinary outputs Oxygen demand down 5) HTN, better controlled Marty Fine DO Sep 27, 2017 21:05
[2017-09-28] VITALS (9 sets, daily range): BP systolic 134–167; BP diastolic 63–74; PULSE 92–101; RESP 16–19; TEMP 95.5–97.8; O2SAT 93–96
[2017-09-28] MEDS: SODIUM CHLOR 0.9% 1000 ML INJ 1,000 ML IV SCH (01:21)
[2017-09-28] MEDS: RESP: ALBUTEROL 2.5 MG/3 ML NEB (PRN) NEB ×3 (03:36→20:17)
[2017-09-28] MEDS: hydrALAZINE HCL 25 MG TAB PO SCH ×3 (06:07→21:23)
[2017-09-28] MEDS: CEPHALEXIN MONOHYDRATE 500 MG CAP PO SCH ×4 (06:07→22:53)
[2017-09-28 07:37] LABS: POTASSIUM 5.2 MEQ/L (3.5-5.1)
[2017-09-28] MEDS: SODIUM CHLORIDE 0.9% FLUSH 10 ML FLUSH IV FLUSH SCH ×2 (09:00→21:26)
[2017-09-28] MEDS: FLUCONAZOLE 200 MG TAB PO SCH (09:15)
[2017-09-28] MEDS: DOCUSATE SODIUM 50 MG/SENNA 8.6 MG TAB PO SCH ×2 (09:15→21:23)
[2017-09-28] MEDS: MULTIVITAMINS/MINERALS THERAPEUTIC TAB PO SCH (09:15)
[2017-09-28] MEDS: FINASTERIDE 5 MG TAB PO SCH (09:15)
[2017-09-28] MEDS: TAMSULOSIN HCL 0.4 MG CAP PO SCH (09:15)
[2017-09-28] MEDS: predniSONE 20 MG TAB PO SCH ×3 (09:16→17:34)
[2017-09-28] MEDS: BUMETANIDE 1 MG TAB PO SCH ×2 (09:16→17:34)
[2017-09-28] MEDS: ATORVASTATIN 40 MG TAB PO SCH (09:16)
[2017-09-28] MEDS: ASCORBIC ACID 500 MG TAB PO SCH (09:16)
[2017-09-28] MEDS: PANTOPRAZOLE SOD 40 MG DELAYED RELEASE TAB PO SCH (09:17)
[2017-09-28] MEDS: amLODIPine BESYLATE 5 MG TAB PO SCH ×2 (09:17→21:23)
[2017-09-28] MEDS: GABAPENTIN 300 MG CAP PO SCH ×4 (09:17→21:23)
[2017-09-28] MEDS: INSULIN DETEMIR 100 UNITS/ML VIAL SQ SCH ×2 (09:18→22:47)
[2017-09-28] MEDS: ASPIRIN 81 MG CHEW TAB PO SCH (09:18)
[2017-09-28] MEDS: INSULIN ASPART SUPPLEMENTAL SCALE SQ SCH ×4 (09:18→22:48)
[2017-09-28] MEDS: BISACODYL 10 MG SUPP RECTAL PRN (11:59)
--- NOTE | 2017-09-28 13:19 | HHI.PR ---
Subjective Remarks Hyponatremia, acute kidney injury. The patient states he feels about the same. Still weak. No pain at this time. Denies dyspnea, nausea, vomiting. Objective Vitals Vital Signs Date Time Temp Pulse Resp B/P (MAP) Pulse Ox O2 Delivery O2 Flow Rate FiO2 09/28/17 12:00 96.2 99 17 167/74 (105) 94 09/28/17 08:00 97.7 94 16 148/67 (94) 96 09/28/17 04:00 95.6 95 17 137/63 (87) 94 09/28/17 00:00 95.5 92 17 137/65 (89) 93 09/27/17 20:52 95 Nasal Cannula 4.00 09/27/17 20:34 94 Nasal Cannula 4.00 Humidified 09/27/17 20:00 96.3 96 18 131/60 (83) 94 09/27/17 16:00 96.3 95 16 149/63 (91) 95 I/O 09/27/17 09/27/17 09/27/17 09/28/17 09/28/17 09/28/17 07:00 15:00 23:00 07:00 15:00 23:00 Intake Total 480 ml 600 ml 240 ml Output Total 875 ml 1600 ml 1100 ml Balance -395 ml -1000 ml -860 ml Intake Oral 480 ml 600 ml 240 ml Output Urine Total 850 ml 1600 ml 1100 ml Drainage Total 25 ml 0 ml # Bowel Movements 0 Result Diagram: 09/27/17 0600 09/28/17 0600 Imaging Last Impressions Chest X-Ray 09/26/17 0000 Signed Impressions: Service Date/Time: Tuesday, September 26, 2017 11:53 - CONCLUSION: Small pleural effusions and bibasilar densities likely atelectasis. Janak Leyva MD Chest CTA 09/25/17 0000 Signed Impressions: Service Date/Time: Monday, September 25, 2017 20:51 - CONCLUSION: 1. Scattered calcified plaque throughout the abdominal aorta. No aneurysmal change or hemodynamically significant stenosis. 2. 3 cusped aortic valve without significant calcifications. Sinus of Valsalva measures 4.0 x 3.5 cm. Mid tubular aorta measures 3.4 x 3.3 cm. 3. Moderate right and small left pleural effusion with associated passive atelectasis. 4. Mild mediastinal adenopathy. Toni Bloom Jr., MD Objective Remarks General: No acute distress. Heart: Regular rate and rhythm. 2/6 systolic murmur. Lungs: Mild crackles at both bases. Breathing is nonlabored. Abdomen: Soft, mildly distended, mild tenderness of the lower abdomen. Extremities: 1+ bilateral lower extremity edema. Left heel wound VAC in place. Psych: Alert and oriented. Skin: There is a wound on the top of the ear where the nasal cannula tube rests. Procedures BL pigatil catheter chest placement on 09/14 Urinary Catheter: No Vascular Central Line Catheter: No Line: PICC A/P Problem List: (1) Sepsis ICD Code: A41.9 - Sepsis, unspecified organism Status: Acute (2) Hospital-acquired pneumonia ICD Code: J18.9 - Pneumonia, unspecified organism Status: Acute (3) Diabetes mellitus with hyperglycemia ICD Code: E11.65 - Type 2 diabetes mellitus with hyperglycemia (4) STAN (acute kidney injury) ICD Code: N17.9 - Acute kidney failure, unspecified (5) COPD exacerbation ICD Code: J44.1 - Chronic obstructive pulmonary disease with (acute) exacerbation (6) HTN (hypertension) ICD Code: I10 - Essential (primary) hypertension Status: Chronic (7) Severe mitral regurgitation ICD Code: I34.0 - Nonrheumatic mitral (valve) insufficiency Status: Acute Assessment and Plan 1. Acute hypoxemic respiratory failure: Improved. Secondary to pneumonia, COPD exacerbation. Status post bilateral pigtail catheter placement on 09/14/17 for drainage of pleural effusions. Tubes have been removed. Discussed with Dr. Landry. Repeat chest x-ray shows small pleural effusions. Continue prednisone. 2. Severe mitral valve regurgitation: Appreciate cardiology, cardiothoracic surgery recommendations. Discussed with Dr. Damon. He recommends discharge to SNF/rehab with outpatient follow up in 3-4 weeks for consideration of surgery at that time. 3. Sepsis secondary to healthcare associated pneumonia: Appreciate infectious disease recommendations. Continue antibiotics. 4. 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 Appreciate podiatry recommendations. Wound VAC in place. 5. Diabetes mellitus type 2: Monitor Accu-Cheks and cover with sliding scale insulin. Continue Levemir. 6. Hypertension: Continue amlodipine. 7. DVT prophylaxis: Heparin. 8. Urinary retention: Appreciate urology recommendations. Continue Flomax. Beckman catheter was removed. Patient tolerated the trial. 9. Decubitus ulcer, buttock: Continue wound care. Rotate patient q2h. Patient states that he has been rotating frequently. 10. Acute renal insufficiency, hyponatremia: Sodium decreasing. Creatinine improving. Repeat BMP ordered/pending. Discharge Planning Plan for discharge to SNF soon, possibly tomorrow. Patient has been cleared for discharge by cardiothoracic surgery, urology, pulmonology. Problem Qualifiers (1) Sepsis: Qualified Codes: A41.9 - Sepsis, unspecified organism Star Cedeño MD Sep 28, 2017 13:19
--- NOTE | 2017-09-28 13:38 | PD.CARD.PN ---
Subjective Subjective Remarks No chest pain SOB better today but not great yet Objective Medications Current Medications Medications (Trade) Dose Ordered Sig/Sumanth Route Start Time Stop Time Status Last Admin (Norvasc) 5 mg BID PO 09/10/17 21:00 09/28/17 09:17 (Vitamin C) 500 mg DAILY PO 09/11/17 09:00 09/28/17 09:16 (Aspirin Chew) 81 mg DAILY PO 09/11/17 09:00 09/28/17 09:18 (Lipitor) 40 mg DAILY PO 09/11/17 09:00 09/28/17 09:16 (Proscar) 5 mg DAILY PO 09/11/17 09:00 09/28/17 09:15 (Diflucan) 200 mg DAILY PO 09/11/17 09:00 09/28/17 09:15 (Neurontin) 600 mg QID PO 09/10/17 18:00 09/28/17 11:59 (Theragran M Tab) 1 tab DAILY PO 09/11/17 09:00 09/28/17 09:15 (Nicotine Gum) 4 mg Q2H PRN CHEW 09/10/17 16:15 (Vasotec Inj) 1.25 mg Q6H PRN IV PUSH 09/10/17 16:30 (Catapres) 0.1 mg Q6H PRN PO 09/10/17 16:30 (Albuterol Neb) 2.5 mg Q2HR NEB PRN NEB 09/10/17 16:30 09/28/17 09:04 (NS Flush) 2 ml UNSCH PRN IV FLUSH 09/10/17 16:30 09/23/17 00:39 (NS Flush) 2 ml BID IV FLUSH 09/10/17 21:00 09/28/17 09:00 (Tylenol) 650 mg Q4H PRN PO 09/10/17 16:30 (Zofran Inj) 4 mg Q6H PRN IVP 09/10/17 16:30 (Tylenol) 650 mg Q6H PRN PO 09/10/17 16:30 ([place] 5-325 Mg) 1 tab Q4H PRN PO 09/10/17 16:30 09/17/17 01:00 (Morphine Inj) 1 mg Q3H PRN IV PUSH 09/10/17 16:30 09/27/17 23:08 (Narcan Inj) 0.4 mg UNSCH PRN IV PUSH 09/10/17 16:30 (Alanna-Colace) 1 tab BID PO 09/10/17 21:00 09/28/17 09:15 (Senokot) 17.2 mg Q12H PRN PO 09/10/17 16:30 09/19/17 09:30 (Dulcolax Supp) 10 mg DAILY PRN RECTAL 09/10/17 16:30 09/28/17 11:59 (Lactulose Liq) 30 ml DAILY PRN PO 09/10/17 16:30 09/27/17 15:05 ([place] 10-325 Mg) 1 tab Q4H PRN PO 09/10/17 17:00 09/27/17 20:50 (Protonix) 40 mg DAILY PO 09/11/17 21:00 09/28/17 09:17 Miscellaneous Information Patient in critical care unit? Ass... [id number] .XX 09/11/17 19:00 (Tums Chew) 500 mg Q6H PRN CHEW 09/13/17 10:30 (D50w (Vial) Inj) 50 ml UNSCH PRN IV PUSH 09/15/17 14:45 (Glucagon Inj) 1 mg UNSCH PRN OTHER 09/15/17 14:45 (NovoLOG SUPPLEMENTAL SCALE) 1 ACHS SLIDING SCALE SQ 09/15/17 17:00 09/28/17 11:58 (Apresoline) 50 mg Q8HR PO 09/19/17 14:00 09/28/17 12:00 (Fleet Mineral Oil Enema) 118 ml DAILY PRN RECTAL 09/20/17 16:30 09/27/17 15:01 (Levemir Inj) 44 units BID SQ 09/21/17 21:00 09/28/17 09:18 (Keflex) 500 mg Q6HR PO 09/22/17 18:00 09/28/17 11:58 (Flomax) 0.4 mg DAILY PO 09/25/17 12:00 09/28/17 09:15 (Deltasone) 20 mg TID PO 09/26/17 13:00 09/28/17 11:59 (Bumetanide) 1 mg BID@ PO 09/26/17 18:00 09/28/17 09:16 Vital Signs / I&O Vital Signs Date Time Temp Pulse Resp B/P (MAP) Pulse Ox O2 Delivery O2 Flow Rate FiO2 09/28/17 12:00 96.2 99 17 167/74 (105) 94 09/28/17 08:00 97.7 94 16 148/67 (94) 96 09/28/17 04:00 95.6 95 17 137/63 (87) 94 09/28/17 00:00 95.5 92 17 137/65 (89) 93 09/27/17 20:52 95 Nasal Cannula 4.00 09/27/17 20:34 94 Nasal Cannula 4.00 Humidified 09/27/17 20:00 96.3 96 18 131/60 (83) 94 09/27/17 16:00 96.3 95 16 149/63 (91) 95 I/O 09/27/17 09/27/17 09/27/17 09/28/17 09/28/17 09/28/17 07:00 15:00 23:00 07:00 15:00 23:00 Intake Total 480 ml 600 ml 240 ml Output Total 875 ml 1600 ml 1100 ml Balance -395 ml -1000 ml -860 ml Intake Oral 480 ml 600 ml 240 ml Output Urine Total 850 ml 1600 ml 1100 ml Drainage Total 25 ml 0 ml # Bowel Movements 0 Physical Exam GENERAL: NAD, AAOx3 SKIN: Warm and dry. HEAD: Atraumatic. Normocephalic. EYES: Pupils equal and round. No scleral icterus. No injection or drainage. ENT: No nasal bleeding or discharge. Mucous membranes pink and moist. NECK: Trachea midline. No JVD. CARDIOVASCULAR: Regular rate and rhythm. 2/6 holosystolic murmur at the apex RESPIRATORY: No accessory muscle use. Decreased breath sounds bilaterally GASTROINTESTINAL: Abdomen soft, non-tender, nondistended. Hepatic and splenic margins not palpable. MUSCULOSKELETAL: Extremities without clubbing, cyanosis, or edema. No obvious deformities. Right radial no hematoma, neurovascularly intact distally. Right brachial no ecchymosis NEUROLOGICAL: Awake and alert. No obvious cranial nerve deficits. Motor grossly within normal limits. Five out of 5 muscle strength in the arms and legs. Normal speech. PSYCHIATRIC: Appropriate mood and affect; insight and judgment normal. Laboratory Laboratory Tests Test 09/27/17 15:13 09/28/17 06:00 09/28/17 13:11 Blood Urea Nitrogen 54 MG/DL 53 MG/DL Creatinine 1.36 MG/DL 1.23 MG/DL Random Glucose 118 MG/DL 191 MG/DL Calcium Level 7.8 MG/DL 7.8 MG/DL Sodium Level 125 MEQ/L 123 MEQ/L Potassium Level 4.9 MEQ/L 5.2 MEQ/L Chloride Level 88 MEQ/L 87 MEQ/L Carbon Dioxide Level 27.0 MEQ/L 28.0 MEQ/L Anion Gap 10 MEQ/L 8 MEQ/L Estimat Glomerular Filtration Rate 55 ML/MIN 62 ML/MIN Assessment and Plan Problem List: (1) Severe mitral regurgitation ICD Codes: I34.0 - Nonrheumatic mitral (valve) insufficiency Status: Acute (2) Hospital-acquired pneumonia ICD Codes: J18.9 - Pneumonia, unspecified organism Status: Acute (3) HTN (hypertension) ICD Codes: I10 - Essential (primary) hypertension Status: Chronic (4) COPD exacerbation ICD Codes: J44.1 - Chronic obstructive pulmonary disease with (acute) exacerbation (5) STAN (acute kidney injury) ICD Codes: N17.9 - Acute kidney failure, unspecified Assessment and Plan 1) Respiratory failure secondary to severe mitral regurgitation 2) CT surgery evaluation for mitral valve repair Discussed with Dr. Beck Cleared by ID Now plan on rehab if possible, then reevaluate in the office Patient not ready for rehab at this time, still with significant SOB 3) No significant CAD on cath 4) Con't diuresis Good urinary outputs Oxygen demand down 5) HTN, better controlled 6) Hyponatremia, due to diuresis Marty Fine DO Sep 28, 2017 13:38
[2017-09-28 14:02] LABS: BICARBONATE 27.9 MEQ/L (21.0-32.0); POTASSIUM 4.5 MEQ/L (3.5-5.1)
--- NOTE | 2017-09-28 15:51 | HHI.PR ---
Subjective Remarks 52 YOWM with RF,Pneumonia, Sepsis mild distress no Fever On2 LNC C/O Constipation Na improved to 128 Objective Vital Signs Vital Signs Date Time Temp Pulse Resp B/P (MAP) Pulse Ox O2 Delivery O2 Flow Rate FiO2 09/28/17 12:00 96.2 99 17 167/74 (105) 94 09/28/17 09:04 96 Nasal Cannula 4.00 09/28/17 08:00 97.7 94 16 148/67 (94) 96 09/28/17 04:00 95.6 95 17 137/63 (87) 94 09/28/17 00:00 95.5 92 17 137/65 (89) 93 09/27/17 20:52 95 Nasal Cannula 4.00 09/27/17 20:34 94 Nasal Cannula 4.00 Humidified 09/27/17 20:00 96.3 96 18 131/60 (83) 94 09/27/17 16:00 96.3 95 16 149/63 (91) 95 I/O 09/27/17 09/27/17 09/27/17 09/28/17 09/28/17 09/28/17 07:00 15:00 23:00 07:00 15:00 23:00 Intake Total 480 ml 600 ml 240 ml Output Total 875 ml 1600 ml 1100 ml Balance -395 ml -1000 ml -860 ml Intake Oral 480 ml 600 ml 240 ml Output Urine Total 850 ml 1600 ml 1100 ml Drainage Total 25 ml 0 ml # Bowel Movements 0 Result Diagram: 09/27/17 0600 09/28/17 1311 Objective Remarks GENERAL: MBMN WM on BIPAP SKIN: Warm and dry. HEAD: Normocephalic. EYES: No scleral icterus. No injection or drainage. NECK: Supple, trachea midline. No JVD or lymphadenopathy. CARDIOVASCULAR: Regular rate and rhythm without murmurs, gallops, or rubs. RESPIRATORY: Breath sounds equal bilaterally. No accessory muscle use. GASTROINTESTINAL: Abdomen soft, non-tender, nondistended. MUSCULOSKELETAL: No cyanosis, or edema. BACK: Nontender without obvious deformity. No CVA tenderness. A/P Assessment and Plan Resp Failure, improved COPD Sepsis Pneumonia DM Severe Mitral regurgitation PLAN Supplement 02 with NC Cont Abx Aerosol nebs Use Incentive spirometry. Symbicort 2 puffs bid Dariel Landry MD Sep 28, 2017 15:51
[2017-09-28] MEDS: BUDESONIDE-FORMOTEROL 160/4.5 MCG INHALER INH SCH (21:22)
[2017-09-28] MEDS: ACETAMINOPHEN/HYDROcodone 325 MG/10 MG TAB PO PRN (21:23)
[2017-09-28] MEDS: MORPHINE SULFATE 4 MG/ML INJ IV PUSH PRN (22:46)
[2017-09-29] VITALS: BP 138/65; PULSE 97; RESP 20; TEMP 97.3; O2SAT 93
[2017-09-29] MEDS: RESP: ALBUTEROL 2.5 MG/3 ML NEB (PRN) NEB ×2 (02:33→08:49)
[2017-09-29 04:00] VITALS: BP 141/63; PULSE 96; RESP 20; TEMP 97; O2SAT 96
[2017-09-29] MEDS: hydrALAZINE HCL 25 MG TAB PO SCH ×2 (05:41→12:59)
[2017-09-29] MEDS: CEPHALEXIN MONOHYDRATE 500 MG CAP PO SCH ×2 (05:41→13:00)
[2017-09-29] MEDS: ACETAMINOPHEN/HYDROcodone 325 MG/10 MG TAB PO PRN (05:52)
[2017-09-29 06:21] LABS: AUTOMATED NEUTROPHIL # 16.1 TH/MM3 (1.8-7.7); HEMATOCRIT 21.9 % (39.0-51.0); HEMO FLAGS DIFF FINAL; LYMPH % 3.5 % (9.0-44.0); LYMPHOCYTE # 0.6 TH/MM3 (1.0-4.8); MEAN CELL VOLUME 77.9 FL (80.0-100.0); MEAN CORPUSCULAR HEMOGLOBIN 26.2 PG (27.0-34.0); MEAN CORPUSCULAR HGB CONC 33.6 % (32.0-36.0); NEUT % 93.5 % (16.0-70.0); PLATELET COUNT 197 TH/MM3 (150-450); RED BLOOD COUNT 2.81 MIL/MM3 (4.50-5.90); RED CELL DISTRIBUTION WIDTH 22.9 % (11.6-17.2); WHITE BLOOD COUNT 17.2 TH/MM3 (4.0-11.0)
[2017-09-29 06:59] LABS: BICARBONATE 28.4 MEQ/L (21.0-32.0); MAGNESIUM 2.4 MG/DL (1.5-2.5); POTASSIUM 4.5 MEQ/L (3.5-5.1)
[2017-09-29 08:00] VITALS: BP 134/64; PULSE 91; RESP 16; TEMP 97.3; O2SAT 93
[2017-09-29 08:21] VITALS: PULSE 94
[2017-09-29] MEDS: FLUCONAZOLE 200 MG TAB PO SCH (08:24)
[2017-09-29] MEDS: ASPIRIN 81 MG CHEW TAB PO SCH (08:24)
[2017-09-29] MEDS: INSULIN DETEMIR 100 UNITS/ML VIAL SQ SCH (08:24)
[2017-09-29] MEDS: TAMSULOSIN HCL 0.4 MG CAP PO SCH (08:24)
[2017-09-29] MEDS: ASCORBIC ACID 500 MG TAB PO SCH (08:25)
[2017-09-29] MEDS: FINASTERIDE 5 MG TAB PO SCH (08:25)
[2017-09-29] MEDS: ATORVASTATIN 40 MG TAB PO SCH (08:25)
[2017-09-29] MEDS: DOCUSATE SODIUM 50 MG/SENNA 8.6 MG TAB PO SCH (08:25)
[2017-09-29] MEDS: PANTOPRAZOLE SOD 40 MG DELAYED RELEASE TAB PO SCH (08:25)
[2017-09-29] MEDS: MULTIVITAMINS/MINERALS THERAPEUTIC TAB PO SCH (08:25)
[2017-09-29] MEDS: amLODIPine BESYLATE 5 MG TAB PO SCH (08:25)
[2017-09-29] MEDS: MORPHINE SULFATE 4 MG/ML INJ IV PUSH PRN ×2 (08:25→13:00)
[2017-09-29] MEDS: GABAPENTIN 300 MG CAP PO SCH ×2 (08:25→12:59)
[2017-09-29] MEDS: INSULIN ASPART SUPPLEMENTAL SCALE SQ SCH ×2 (08:26→13:20)
[2017-09-29] MEDS: BUMETANIDE 1 MG TAB PO SCH (08:26)
[2017-09-29] MEDS: predniSONE 20 MG TAB PO SCH ×2 (08:26→12:59)
[2017-09-29] MEDS: SODIUM CHLORIDE 0.9% FLUSH 10 ML FLUSH IV FLUSH SCH (08:26)
[2017-09-29] MEDS: BUDESONIDE-FORMOTEROL 160/4.5 MCG INHALER INH SCH (08:27)
[2017-09-29 08:50] VITALS: O2SAT 93
--- NOTE | 2017-09-29 11:20 | HHI.PR ---
Subjective Remarks 52 YOWM with RF,Pneumonia, Sepsis mild distress no Fever On2 LNC Working with PT Objective Vital Signs Vital Signs Date Time Temp Pulse Resp B/P (MAP) Pulse Ox O2 Delivery O2 Flow Rate FiO2 09/29/17 08:50 93 Nasal Cannula 4.00 09/29/17 08:21 94 09/29/17 08:21 Nasal Cannula 4.00 09/29/17 08:00 97.3 91 16 134/64 (87) 93 09/29/17 04:00 97.0 96 20 141/63 (89) 96 09/29/17 00:00 97.3 97 20 138/65 (89) 93 09/28/17 21:21 94 Nasal Cannula 4.00 Humidified 09/28/17 20:18 94 Nasal Cannula 4.00 09/28/17 20:00 97.8 97 19 134/63 (86) 94 09/28/17 20:00 101 09/28/17 16:00 97.3 97 16 148/65 (92) 95 09/28/17 12:00 96.2 99 17 167/74 (105) 94 I/O 09/28/17 09/28/17 09/28/17 09/29/17 09/29/17 09/29/17 07:00 15:00 23:00 07:00 15:00 23:00 Intake Total 240 ml 550 ml 220 ml Output Total 1100 ml 1900 ml 1800 ml Balance -860 ml -1350 ml -1580 ml Intake Oral 240 ml 550 ml 220 ml Output Urine Total 1100 ml 1900 ml 1800 ml Drainage Total 0 ml 0 ml # Bowel Movements 0 0 Result Diagram: 09/29/17 0609/29/17 0600 Objective Remarks GENERAL: MBMN WM on BIPAP SKIN: Warm and dry. HEAD: Normocephalic. EYES: No scleral icterus. No injection or drainage. NECK: Supple, trachea midline. No JVD or lymphadenopathy. CARDIOVASCULAR: Regular rate and rhythm without murmurs, gallops, or rubs. RESPIRATORY: Breath sounds equal bilaterally. No accessory muscle use. GASTROINTESTINAL: Abdomen soft, non-tender, nondistended. MUSCULOSKELETAL: No cyanosis, or edema. BACK: Nontender without obvious deformity. No CVA tenderness. A/P Assessment and Plan Resp Failure, improved COPD Sepsis Pneumonia DM Severe Mitral regurgitation PLAN Supplement 02 with NC Cont Abx Aerosol nebs Use Incentive spirometry. Symbicort 2 puffs bid DC Plans for Dariel Castaneda MD Sep 29, 2017 11:20
[2017-09-29] MEDS ORDERED: HYDR-3799 PO (11:44)
[2017-09-29] MEDS ORDERED: Albuterol Neb NEB (11:44)
[2017-09-29] MEDS ORDERED: TAMS5CAP PO (11:44)
[2017-09-29] MEDS ORDERED: HYDR-3583 PO (11:44)
[2017-09-29] MEDS ORDERED: Budeson-Formot 160-4.5 Mg Inh INH (11:44)
[2017-09-29] MEDS ORDERED: CEPH500C PO (11:44)
[2017-09-29] MEDS ORDERED: BUME1TAB PO (11:44)
[2017-09-29] MEDS ORDERED: LEVEMIR SQ (11:44)
[2017-09-29] MEDS ORDERED: NOVOLOGSS SQ (11:44)
[2017-09-29] MEDS ORDERED: PRED20 PO (11:44)
--- NOTE | 2017-09-29 11:50 | HHI.DCPOC ---
Discharge Care Plan Diagnosis: (1) Severe mitral regurgitation (2) Coronary artery disease (3) Diabetes mellitus with hyperglycemia (4) HTN (hypertension) (5) COPD exacerbation (6) STAN (acute kidney injury) (7) Sepsis (8) Hospital-acquired pneumonia (9) Osteomyelitis (10) PAD (peripheral artery disease) Goals to Promote Your Health * To prevent worsening of your condition and complications * To maintain your health at the optimal level Directions to Meet Your Goals Take your medications as prescribed Follow your dietary instruction Follow activity as directed Keep your appointments as scheduled Take your immunizations and boosters as scheduled If your symptoms worsen call your PCP, if no PCP go to Urgent Care Center or Emergency Room Smoking is Dangerous to Your Health. Avoid second hand smoke Call the 24-hour hour crisis hotline for domestic abuse at Star Cedeño MD Sep 29, 2017 11:50
[2017-09-29 12:00] VITALS: BP 134/64; PULSE 91; RESP 16; TEMP 97.3; O2SAT 93
--- NOTE | 2017-09-29 12:01 | HHI.DS ---
Discharge Summary Admission Date Sep 10, 2017 at 16:19 Discharge Date: Sep 29, 2017 Admitting Diagnosis sepsis, HAP (1) Sepsis ICD Code: A41.9 - Sepsis, unspecified organism Status: Acute (2) Hospital-acquired pneumonia ICD Code: J18.9 - Pneumonia, unspecified organism Status: Acute (3) Diabetes mellitus with hyperglycemia ICD Code: E11.65 - Type 2 diabetes mellitus with hyperglycemia (4) STAN (acute kidney injury) ICD Code: N17.9 - Acute kidney failure, unspecified (5) COPD exacerbation ICD Code: J44.1 - Chronic obstructive pulmonary disease with (acute) exacerbation (6) HTN (hypertension) ICD Code: I10 - Essential (primary) hypertension Status: Chronic (7) Severe mitral regurgitation ICD Code: I34.0 - Nonrheumatic mitral (valve) insufficiency Status: Acute Procedures BL pigatil catheter chest placement on 09/14 Brief History - From Admission This is a 52-year-old male with a history of COPD, diabetes mellitus, PAD, chronic pain, arthritis, CVA, hyperlipidemia, GERD, hypertension and neuropathy. He presents to the emergency department complaining of shortness of breath for the past 2 days associated with nonproductive cough and chills. Chest x-ray shows consolidation in the right lung base and has been started Zithromax and Zosyn. He also has a left heel wound being treated for cellulitis with IM Rocephin and Diflucan. All other systems reviewed negative CBC/BMP: 09/29/17 0600 09/29/17 0600 Significant Findings Laboratory Tests Test 09/27/17 06:00 09/27/17 15:13 09/28/17 06:00 09/28/17 13:11 White Blood Count 22.8 TH/MM3 (4.0-11.0) Red Blood Count 2.93 MIL/MM3 (4.50-5.90) Hemoglobin 7.5 GM/DL (13.0-17.0) Hematocrit 22.8 % (39.0-51.0) Mean Corpuscular Volume 78.0 FL (80.0-100.0) Mean Corpuscular Hemoglobin 25.7 PG (27.0-34.0) Red Cell Distribution Width 22.0 % (11.6-17.2) Neutrophils (%) (Auto) 86.6 % (16.0-70.0) Neutrophils # (Auto) 19.7 TH/MM3 (1.8-7.7) Blood Urea Nitrogen 55 MG/DL (7-18) 54 MG/DL (7-18) 53 MG/DL (7-18) 53 MG/DL (7-18) Creatinine 1.40 MG/DL (0.60-1.30) 1.36 MG/DL (0.60-1.30) Random Glucose 144 MG/DL (74-106) 118 MG/DL (74-106) 191 MG/DL (74-106) 143 MG/DL (74-106) Calcium Level 7.6 MG/DL (8.5-10.1) 7.8 MG/DL (8.5-10.1) 7.8 MG/DL (8.5-10.1) 7.9 MG/DL (8.5-10.1) Sodium Level 128 MEQ/L (136-145) 125 MEQ/L (136-145) 123 MEQ/L (136-145) 128 MEQ/L (136-145) Chloride Level 90 MEQ/L (98-107) 88 MEQ/L (98-107) 87 MEQ/L (98-107) 91 MEQ/L (98-107) Estimat Glomerular Filtration Rate 53 ML/MIN (>89) 55 ML/MIN (>89) 62 ML/MIN (>89) 67 ML/MIN (>89) Potassium Level 5.2 MEQ/L (3.5-5.1) Test 09/29/17 06:00 White Blood Count 17.2 TH/MM3 (4.0-11.0) Red Blood Count 2.81 MIL/MM3 (4.50-5.90) Hemoglobin 7.4 GM/DL (13.0-17.0) Hematocrit 21.9 % (39.0-51.0) Mean Corpuscular Volume 77.9 FL (80.0-100.0) Mean Corpuscular Hemoglobin 26.2 PG (27.0-34.0) Red Cell Distribution Width 22.9 % (11.6-17.2) Neutrophils (%) (Auto) 93.5 % (16.0-70.0) Lymphocytes (%) (Auto) 3.5 % (9.0-44.0) Neutrophils # (Auto) 16.1 TH/MM3 (1.8-7.7) Lymphocytes # (Auto) 0.6 TH/MM3 (1.0-4.8) Blood Urea Nitrogen 51 MG/DL (7-18) Calcium Level 7.9 MG/DL (8.5-10.1) Sodium Level 129 MEQ/L (136-145) Chloride Level 92 MEQ/L (98-107) Estimat Glomerular Filtration Rate 67 ML/MIN (>89) Imaging Last Impressions Chest X-Ray 09/26/17 0000 Signed Impressions: Service Date/Time: Tuesday, September 26, 2017 11:53 - CONCLUSION: Small pleural effusions and bibasilar densities likely atelectasis. Janak Leyva MD Chest CTA 09/25/17 0000 Signed Impressions: Service Date/Time: Monday, September 25, 2017 20:51 - CONCLUSION: 1. Scattered calcified plaque throughout the abdominal aorta. No aneurysmal change or hemodynamically significant stenosis. 2. 3 cusped aortic valve without significant calcifications. Sinus of Valsalva measures 4.0 x 3.5 cm. Mid tubular aorta measures 3.4 x 3.3 cm. 3. Moderate right and small left pleural effusion with associated passive atelectasis. 4. Mild mediastinal adenopathy. Toni Bloom Jr., MD PE at Discharge General: No acute distress. Heart: Regular rate and rhythm. 2/6 systolic murmur. Lungs: Mild crackles at both bases. Breathing is nonlabored. Abdomen: Soft, mildly distended, mild tenderness of the lower abdomen. Extremities: 1+ bilateral lower extremity edema. Left heel wound VAC in place. Psych: Alert and oriented. Skin: There is a wound on the top of the ear where the nasal cannula tube rests. Pt update on day of discharge The patient states that he feels better today. Pain is controlled. No chest pain or dyspnea this morning. Intermittent dyspnea resolves with albuterol. Hospital Course The patient was admitted for management of sepsis secondary to posterior so she pneumonia. He was continued on IV antibiotics. Infectious disease was consulted. Podiatry was consulted for evaluation of left heel wound. Wound VAC was placed. Pulmonology was consulted for further evaluation of respiratory insufficiency secondary to pneumonia, COPD. The patient was found to have pleural effusions. Pigtail catheters were placed bilaterally. The patient was treated for congestive heart failure and found on echocardiogram to have severe mitral regurgitation. Cardiology was consulted. Cardiothoracic surgery was consulted. Recommendations were made for surgical repair of the mitral regurgitation, however the patient was not felt to be strong enough to withstand the surgery and the recovery at this time. Recommendations were made for further physical therapy prior to surgery. He developed left right abnormalities and was placed on fluid restriction. His labs improved. During the hospitalization he was evaluated by ophthalmology for complaint of blurred vision. This was felt to be secondary to cataract, diabetic retinopathy. He also developed urinary retention. Beckman catheter was placed and the patient was started on Flomax. He was evaluated by urology. Beckman catheter was removed and patient tolerated a voiding trial and was able to void spontaneously. He was cleared for discharge by cardiology, cardiothoracic surgery, pulmonology. Infectious disease recommended oral antibiotics. The patient was felt to be stable for discharge to alf facility. Pt Condition on Discharge: Stable Discharge Disposition: Discharge to SNF Discharge Time: > 30 minutes Discharge Instructions DIET: Follow Instructions for: Heart Healthy Diet, Diabetic Diet Activities you can perform: Regular-No Restrictions, Non Weight Bearing Other Activity Instructions: Non weight bearing to left heel. Must put weight on forefoot only to do minimal walking or transferring. Must wear surgical shoe on left foot when ambulating/transferring. Follow up Referrals: Cardiology - 2 Weeks with Marty Fine DO PCP Follow-up - 1 Week Podiatry - 2 Weeks with Ysabel Echols DPM Surgical - 4 Weeks with Zelda Beck MD New Medications: Bumetanide (Bumetanide) 1 Mg Tab 1 MG PO BID@,18 for Diuretic, #60 TAB 0 Refills Cephalexin (Cephalexin) 500 Mg Cap 500 MG PO Q6HR for Infection for 23 Days, CAP 0 Refills Hydralazine HCl (Hydralazine HCl) 25 Mg Tablet 50 MG PO Q8HR for Blood Pressure Management, #90 TAB Insulin Aspart Inj (Novolog Inj) 100 Unit/Ml Inj 1 UNIT SQ ACHS SLIDING SCALE for Blood Sugar Management, #90 INJECTION Bld. Sugar <70=No Insulin 150-199=2 U 200-249=4 U 250-299=7 U 300-349=10 U >349=12 U Insulin Detemir Inj (Levemir Inj) 1,000 unit/ 10 ML Vial 44 UNITS SQ BID for Blood Sugar Management, #90 INJECTION Do not mix with any other Insulin. Prednisone (Prednisone) 20 Mg Tab 20 MG PO DIRECTED for Inflammation, #60 TAB 0 Refills Steroid taper: 20mg BID x 4 days, then 20mg daily x 4 days, then 10mg daily x 4 days, then 5mg daily x 4 days, then stop. Tamsulosin (Flomax) 0.4 Mg Cap 0.4 MG PO DAILY for urinary retention, #30 CAP 0 Refills [Albuterol Neb] () 2.5 MG/3 ML NEBU 2.5 MG NEB Q2HR NEB PRN for sob, #30 NEBULE 0 Refills [Budeson-Formot 160-4.5 Mg Inh] () 60 PUFF AERO 2 PUFF INH Q12HR for COPD, #1 INHALER Changed Medications: Hydrocodone-Acetaminophen (Hydrocodone-Acetaminophen) 10-325 mg Tab 1 TAB PO Q4H PRN for PAIN, #10 TAB 0 Refills (Changed from: 15; Removed Instructions) Continued Medications: Acetaminophen (Tylenol) 325 Mg Tab 650 MG PO Q4H PRN for PAIN/TEMP 100 OR ABOVE, TAB 0 Refills Amlodipine (Norvasc) 5 Mg Tab 5 MG PO BID for HTN, #30 TAB 0 Refills Ascorbic Acid (Ascorbic Acid) 500 Mg Tab 500 MG PO DAILY for Pressure Ulcer, TAB Aspirin (Aspirin Low Strength) 81 Mg Chew 81 MG PO DAILY for CAD, #30 EA 0 Refills Atorvastatin (Atorvastatin) 40 Mg Tab 40 MG PO DAILY for HYPERLIPIDEMIA, #30 TAB 0 Refills Bisacodyl Supp (Dulcolax Supp) 10 Mg Supp 10 MG RECTAL IN THE AM PRN for IF NO RESULTS 1 DAY AFTER MOM, #12 SUPP 0 Refills Finasteride (Finasteride) 5 Mg Tab 5 MG PO DAILY for BPH, #30 TAB 0 Refills Do not crush. Gabapentin (Gabapentin) 600 Mg Tab 600 MG PO QID, #60 TAB 0 Refills Magnesium Citrate Liq (Citroma Liq) 300 Ml Liq 300 ML PO IN THE AM PRN for IF NO RESULTS AFTER ENEMA, #1 BOTTLE 0 Refills Magnesium Hydroxide Liq (Milk of Magnesia Liq) 400 Mg/5 Ml Susp 30 ML PO HS PRN for IF NO BM IN 3 DAYS, #1 BOTTLE 0 Refills Multiple Vitamins W/ Minerals (Multi-Vitamin/Minerals) 1 Tab Tab 1 TAB PO DAILY for Nutritional Supplement Nicotine Kristin (Nicorette Kristin) 4 Mg Kristin 4 MG BUCCAL Q2H PRN for Nicotine Dependence, #1 BOX 0 Refills Pantoprazole (Pantoprazole) 40 Mg Tab 40 MG PO DAILY@1600 for Reflux, #30 TAB 0 Refills Sodium Phosphates (Enema Disposable) 19 Gram-7 Gram/118 Ml Katherin 1 APPLIC RECTAL PRN for IF NO REULTS 1 DAY AFTER SUPP Discontinued Medications: Ceftriaxone Inj (Ceftriaxone Inj) 2 Gram Inj 2 GM IM Q24H for Infection for 28 Days, VIAL 0 Refills Fluconazole (Fluconazole) 200 Mg Tab 200 MG PO DAILY for Infection for 30 Days, #30 TAB 0 Refills Hydralazine HCl (Hydralazine HCl) 25 Mg Tablet 25 MG PO Q8HR for HTN, #90 TAB 0 Refills Insulin Detemir Inj (Levemir Inj) 1,000 unit/ 10 ML Vial 30 UNITS SQ BID for DM, #5 VIAL 0 Refills Do not mix with any other Insulin. Insulin Lispro (Human) Inj (Humalog Inj) 1,000 Unit/10 Ml Vial 0-10 UNITS SQ ACHS for Blood Sugar Management, #1 VIAL 0 Refills Sliding Scale: 0-200=0 units, 201-250=2 units, 351-300=4 units, 301-350=6 units. 351-400=8 units, 401-450=10 units, <60 & >405 notify Sodium Chloride Flush (Saline Flush) 0.9 % Inj 10 ML IV FLUSH Q8HR for IV Line Flush, #1 VIAL 0 Refills Star Cedeño MD Sep 29, 2017 12:00
--- NOTE | 2017-09-29 13:03 | PQ ---
Physician Query Response Document PATIENT: JOSELINE VARELA : 1965 ADMIT DATE: 09/10/2017 4:19 PM DISCH DATE: RESPONDING PROVIDER #: [email or web address] QUERY TEXT: CHF Acuity and Type Congestive Heart Failure is documented in the Medical Record. Please document the type and acuity (in cludes probable or suspected) Such as: Type: -- Systolic -- Diastolic -- Combined -- Other, please specify Acuity: -- Acute -- Chronic -- Acute on chronic -- Other, please specify PLEASE CALL THE [facility] @ [phone] FOR ASSISTANCE The patient's Clinical Indicators include: PER CARDIAC CATH REPORT: IMPRESSION 1. Severe mitral regurgitation for consideration of repair versus replacement. 2. Acute congestive heart failure and chronic congestive heart failure secondary to mitral regurgitation. 3. Moderate pulmonary hypertension (type 2) Query created by: Diane Beckett on 09/28/2017 3:37 PM RESPONSE TEXT: Clarification: The patient has Acute and Chronic diastolic CHF. Electronically signed by: Star Cedeño MD 09/29/2017 12:58 PM
== END 2017-09-29 14:33 | DRG 871 ==
LOC: NEPE 14:11 → NEDA 16:19 → N04B 18:57 → HIMW 09-11 09:00 → N07A 09-21 22:01
PROVIDERS: ADMIT Family Medicine; ATTEND Family Medicine
PROC: 5A09457 Assistance with Respiratory Ventilation, 24-96 Consecutive Hours, Continuous Positive Airway Pressure (ICD-10-PCS; 2017-09-12)
PROC: 0W993ZZ Drainage of Right Pleural Cavity, Percutaneous Approach (ICD-10-PCS; 2017-09-13)
PROC: 0W9930Z Drainage of Right Pleural Cavity with Drainage Device, Percutaneous Approach (ICD-10-PCS; principal; 2017-09-14)
PROC: 0W9B30Z Drainage of Left Pleural Cavity with Drainage Device, Percutaneous Approach (ICD-10-PCS; 2017-09-14)
PROC: 4A023N8 Measurement of Cardiac Sampling and Pressure, Bilateral, Percutaneous Approach (ICD-10-PCS; 2017-09-18)
PROC: B2111ZZ Fluoroscopy of Multiple Coronary Arteries using Low Osmolar Contrast (ICD-10-PCS; 2017-09-18)
DX: A41.9 Sepsis, unspecified organism (principal); J18.9 Pneumonia, unspecified organism; J96.21 Acute and chronic respiratory failure with hypoxia; I50.33 Acute on chronic diastolic (congestive) heart failure; N17.9 Acute kidney failure, unspecified; J91.8 Pleural effusion in other conditions classified elsewhere; I11.0 Hypertensive heart disease with heart failure; J44.0 Chronic obstructive pulmonary disease with (acute) lower respiratory infection; J44.1 Chronic obstructive pulmonary disease with (acute) exacerbation; L03.116 Cellulitis of left lower limb; M86.9 Osteomyelitis, unspecified; E87.1 Hypo-osmolality and hyponatremia; L97.429 Non-pressure chronic ulcer of left heel and midfoot with unspecified severity; E11.42 Type 2 diabetes mellitus with diabetic polyneuropathy; E11.51 Type 2 diabetes mellitus with diabetic peripheral angiopathy without gangrene; M19.90 Unspecified osteoarthritis, unspecified site; E78.5 Hyperlipidemia, unspecified; K21.9 Gastro-esophageal reflux disease without esophagitis; Y95 Nosocomial condition; L97.529 Non-pressure chronic ulcer of other part of left foot with unspecified severity; E11.69 Type 2 diabetes mellitus with other specified complication; B95.4 Other streptococcus as the cause of diseases classified elsewhere; G47.30 Sleep apnea, unspecified; I34.0 Nonrheumatic mitral (valve) insufficiency; I25.10 Atherosclerotic heart disease of native coronary artery without angina pectoris; I27.22 Pulmonary hypertension due to left heart disease; H25.049 Posterior subcapsular polar age-related cataract, unspecified eye; H25.033 Anterior subcapsular polar age-related cataract, bilateral; E11.319 Type 2 diabetes mellitus with unspecified diabetic retinopathy without macular edema; E11.621 Type 2 diabetes mellitus with foot ulcer; E11.65 Type 2 diabetes mellitus with hyperglycemia; N40.1 Benign prostatic hyperplasia with lower urinary tract symptoms; R33.8 Other retention of urine; G89.4 Chronic pain syndrome; H54.8 Legal blindness, as defined in USA; H55.00 Unspecified nystagmus; K59.00 Constipation, unspecified; T38.0X5A Adverse effect of glucocorticoids and synthetic analogues, initial encounter; R00.0 Tachycardia, unspecified; Z87.891 Personal history of nicotine dependence; Z85.828 Personal history of other malignant neoplasm of skin; Z99.3 Dependence on wheelchair; Z86.14 Personal history of Methicillin resistant Staphylococcus aureus infection; Z79.4 Long term (current) use of insulin; Z86.73 Personal history of transient ischemic attack (TIA), and cerebral infarction without residual deficits
CPT/HCPCS: 32551; 32554; 36600; 71010; 74174; 76937; 80048; 80053; 81001; 82150; 82565; 82805; 82810; 82945; 82948; 83605; 83615; 83735; 83880; 83986; 84100; 84155; 84157; 85002; 85025; 85610; 85652; 85730; 87015; 87040; 87070; 87102; 87116; 87186; 87205; 87206; 87449; 87641; 87804; 89051; 93005; 93460; 94003; 94010; 94150; 94640; 94664; 96374; C1769; C1893; J0360; J0456; J0692; J0696; J1644; J1815; J2020; J2060; J2250; J2270; J2405; J2543; J2920; J2930; J3010; J3370; J7030; J7040; J7050; J7512; J7613; L3260; P9047; Q9967

== ENCOUNTER 2018-01-18 11:09 | Day surgery (SDC) | payer OTHER, MEDICAID ==
[~2018-01-18] VITALS: Ht 180.3 cm; Wt 83.4 kg
[~2018-01-18 11:09] MED LIST changes: +ASCO500T PO; +Albuterol Neb NEB; +BUME1TAB PO; +Budeson-Formot 160-4.5 Mg Inh INH; -CEFT2INJ IM; +CEPH500C PO; +CITRSOL4 PO; +DULC10SU3 RECTAL; +ENEMENE5 RECTAL; -EPIN1INJ21 IV PUSH; -EPIN1INJ21 SQ; -FLUC200T2 PO; +MILKSUS PO; +MULTTAB62 PO; +NICO4LOZ BUCCAL; +NOVOLOGSS SQ; +PRED20 PO; -SOLU250I IV PUSH; +TAMS5CAP PO; +TYLE325T PO
[2018-01-18] MEDS ORDERED: IOHEXOL 350 MG/ML 100 ML BTL (for Cath Lab) OTHER ONE (11:10)
[2018-01-18] MEDS ORDERED: SODIUM BICARBONATE 100 MEQ in D5W 1000 ML IV SCH (12:00)
[2018-01-18 12:10] LABS: AUTOMATED NEUTROPHIL # 13.9 TH/MM3 (1.8-7.7); BASOPHIL % 0.2 % (0.0-2.0); EOSINOPHIL # 0.6 TH/MM3 (0-0.4); EOSINOPHIL % 2.8 % (0.0-4.0); HEMATOCRIT 34.6 % (39.0-51.0); HEMOGLOBIN 11.5 GM/DL (13.0-17.0); LYMPH % 20.5 % (9.0-44.0); MEAN CELL VOLUME 75.5 FL (80.0-100.0); MEAN CORPUSCULAR HGB CONC 33.1 % (32.0-36.0); MONOCYTE # 1.2 TH/MM3 (0-0.9); NEUT % 70.5 % (16.0-70.0); PLATELET COUNT 511 TH/MM3 (150-450); RED BLOOD COUNT 4.58 MIL/MM3 (4.50-5.90); RED CELL DISTRIBUTION WIDTH 17.3 % (11.6-17.2); WHITE BLOOD COUNT 19.7 TH/MM3 (4.0-11.0)
--- NOTE | 2018-01-18 12:23 | PD.VS.PN ---
Pre-operative Note Pre-operative diagnosis: PAD, B LE tissue loss Planned procedure: B LE angiogram with intervention Interval History: Pt has been without f/C. Ready for surgery Labs: Laboratory Results Test 01/18/18 11:53 Hematocrit 34.6 % (39.0-51.0) Hemoglobin 11.5 GM/DL (13.0-17.0) Mean Corpuscular Hemoglobin 25.0 PG (27.0-34.0) Mean Corpuscular Hemoglobin Concent 33.1 % (32.0-36.0) Mean Corpuscular Volume 75.5 FL (80.0-100.0) Mean Platelet Volume 7.0 FL (7.0-11.0) Platelet Count 511 TH/MM3 (150-450) Red Blood Count 4.58 MIL/MM3 (4.50-5.90) Red Cell Distribution Width 17.3 % (11.6-17.2) White Blood Count 19.7 TH/MM3 (4.0-11.0) Blood: none needed Imaging: will make in OR Orders: NPO Post-operative destination: DOCU Operative site marked: Yes Consent: Informed consent has been obtained from Adilson Lehman. I have explained the procedure in detail and discussed the risks, benefits, and potential complications. All questions have been answered. Ramon Lewis MD Jan 18, 2018 12:23
[2018-01-18 12:28] LABS: INTERNATIONAL NORMALIZED RATIO 1.1 RATIO; PROTHROMBIN TIME - PATIENT 11.4 SEC (9.8-11.6)
[2018-01-18 12:29] LABS: BICARBONATE 23.6 MEQ/L (21.0-32.0); CALCIUM 8.1 MG/DL (8.5-10.1); CREATININE 1.09 MG/DL (0.60-1.30)
[2018-01-18 12:31] VITALS: BP 187/90; PULSE 101; RESP 18; TEMP 98.5; O2SAT 99
[2018-01-18] MEDS ORDERED: MIDAZOLAM HCL 2 MG/2 ML VIAL ONE ×2 (13:11→13:53)
[2018-01-18] MEDS ORDERED: HEPARIN-NS/PF FLUSH BAG 1,000 ML IV FLUSH ONE (13:11)
[2018-01-18] MEDS ORDERED: HEPARIN SODIUM - IV 10,000 UNITS/10 ML VIAL ONE (13:32)
--- NOTE | 2018-01-18 14:19 | CATHPROC ---
[facility] HIS Report Study Information Study Number Admission Scheduled Start Study Start [id number] Jan 18 2018 11:09AM 01/18/2018 Jan 18 2018 1:04PM [place] [facility] Cath Endovascular Study Admit Source Facility Department Other [facility] - [facility] Physician and Clinical Staff Initial MD Lewis, Ramon Bridge Attacher Karoline Romero,RN Recorder Dakota Lee,RT(R) Scrub John Valdivia,RT(R) Procedures Performed Procedure Location (Site) Vessel Name Abdominal Angiogram Abd Aorta (A3) Aorta NAVAL AIRCREWMAN HELICOPTER SFA (left) Femoral Art NAVAL AIRCREWMAN HELICOPTER SFA (right) Femoral Art Wire insertion Fem Art (right) Femoral Art Equipment Time Product Test Engineer Description Size Mfg Part Number Used/Scraped [id number] 13:17 ANGIO-DYNAMICS OMNI FLUSH 65CM CATHETER FR 4 Used *[id number] INTRODUCER SET, 13:17 [employer]. FR 5 [id number] *[id number] Used MICROPUNCTURE, STIFFENED CXI-4.0-35-135- 13:32 COOK/AMINA CATHETER, FR4 CXI SUPPORT FR 4 Used P-NS-0 *[id number] SHEATH, FR6 DECLAN 1 FLEXOR [id number] 13:32 COOK/AMINA FR 6 Used 55CM *[id number] WIRE, GUIDE APPROACH GUEST EXPERIENCE MANAGER [id number] 13:32 COOK/AMINA 300CM Used MICROWIRE *[id number] 13:49 DAIG/[employer] MEDICAL ANGIOSEAL, FR6 VIP FR 6 Used *[id number] 14:01 DAIG/[employer] ANGIOSEAL, FR6 VIP FR 6 Used *[id number] BALLOON, ADMIRAL EXTREME 5 [id number] 13:39 [employer]EC [employer] 130CM Used X 60 130CM *[id number] BALLOON, ADMIRAL EXTREME 5 X [id number] 13:59 [employer]EC [employer] 130CM Used 150 130CM *[id number] 13:17 [employer] PACK, CCL CUSTOM * Used *[id number] 13:36 WooWho 30 STEPHANIE INDEFLATOR Used *[id number] 13:17 WooWho PRESSURE TUBING 48" 48" [id number] 13:32 WooWho WIRE, SCOTT 260CM .035 260CM Used *[id number] 13:17 NAMIC TUBING, HIGH PRESSURE 20" 20" Used *[id number] TUBING, PRESSURE INJECTION [id number] 13:17 NAMIC PACER 72" Used 72" *[id number] 13:17 NYCOMED OMNIPAQUE, 300 MG, 150ML 150ML [id number] Used 13:17 NYCOMED OMNIPAQUE, 300 MG, 50ML 50ML [id number] Used [id number] 13:17 BRICEÑO MEDICAL BLANKET,WARM AIR CCL * Used *[id number] 13:17 TERUMO MEDICAL SHEATH, FR4 TERUMO (10CM) FR 4 Used *[id number] 13:36 TERUMO MEDICAL SHEATH, FR6 TERUMO (10CM) FR 6 Used *[id number] WIRE, ANGLED GLIDE .035 [id number] 13:17 TERUMO MEDICAL/AMINA 260CM Used 260CM *[id number] Equipment Model, Serial, Lot Number and Expiration Data Description Model Number Serial Number Lot Number Expiration Date ANGIOSEAL, FR6 VIP [id number] 09-12-2018 ANGIOSEAL, FR6 VIP [id number] 10-12-2018 BALLOON, ADMIRAL EXTREME 5 X [id number] 07-13-2018 60 130CM CATHETER, FR4 CXI SUPPORT [id number] 12-12-2020 SHEATH, FR6 DECLAN 1 FLEXOR [id number] 08-24-2020 55CM WIRE, GUIDE APPROACH GUEST EXPERIENCE MANAGER [id number] 04-30-2022 MICROWIRE WIRE, SCOTT 260CM .035 [id number] 05-12-2020 History: Allergies Allergy Reaction *MDRO Multi-Drug Resistant Organism Labs Hgb (g/dl) Hct (%) WBC (l/cumm) Platelets (thousands) 11.60-17.00 35.00-51.00 4.00-11.00 150.00-450.00 11.5 34.6 19.7 500 Glucose (mg/dl) BUN (mg/dl) Creatinine (mg/dl) BUN:Creatinine (1:x) 74.00-106.00 7.00-18.00 0.50-1.30 10.00-20.00 189 12 1.0 12 Na (meq/l) K (meq/l) 136.00-145.00 3.50-5.10 133 4 PT (sec) INR (PTT:PT) 9.80-11.60 0.90-1.10 11.4 1.1 CPK-MB (ng/ML) 0.50-3.60 Not Drawn Medication Medication Total Dose (Bolus/Oral) Medication Total Dosage/Unit 1% XYLOCAINE 20 mL FENTANYL 200 mcg HEPARIN 3000 units VERSED 3 mg Medications (Bolus/Oral) Medication Time Given Dosage/Unit Administered By Reason VERSED 01/18/2018 1:22:15 PM 1 mg Adamy, Karoline 1 mg VERSED given in lab by Karoline Romero RN via Peripheral IV. Ordered by Ramon Lewis. FENTANYL 01/18/2018 1:23:21 PM 50 mcg Adamy, Karoline 50 mcg FENTANYL given in lab by Karoline Romero RN via Peripheral IV. Ordered by Ramon Lewis. 1% XYLOCAINE 01/18/2018 1:24:18 PM 10 mL Ramon Lewis Patient arrived on 10 mL 1% XYLOCAINE given by Ramon Lewis in Right Groin via Subcutaneous. Ordere d by Ramon Lewis. HEPARIN 01/18/2018 1:33:38 PM 3000 units Denise Romerofer 3000 units HEPARIN given in lab by Karoline Romero RN via Peripheral IV. Ordered by Ramon Lewis. FENTANYL 01/18/2018 1:34:01 PM 50 mcg Krishnay, Karoline Patient arrived on 50 mcg FENTANYL given by Karoline Romero RN via Peripheral IV. Ordered by Ramon Lewis. VERSED 01/18/2018 1:34:53 PM 1 mg Adamy, Karoline 1 mg VERSED given in lab by Karoline Romero RN via Peripheral IV. Ordered by Ramon Lewis. FENTANYL 01/18/2018 1:35:30 PM 50 mcg Adamy, Karoline 50 mcg FENTANYL given in lab by Karoline Romero RN via Peripheral IV. Ordered by Ramon Lewis. 1% XYLOCAINE 01/18/2018 1:51:20 PM 10 mL Ramon Lewis 10 mL 1% XYLOCAINE given in lab by Ramon Lewis in Left Groin via Subcutaneous. Ordered by Ramon Lewis. VERSED 01/18/2018 1:54:33 PM 1 mg Adamy, Karoline 1 mg VERSED given in lab by Karoline Romero RN via Peripheral IV. Ordered by Ramon Lewis. FENTANYL 01/18/2018 1:55:42 PM 50 mcg Karoline Romero 50 mcg FENTANYL given in lab by Karoline Romero RN via Peripheral IV. Ordered by Ramon Lewis. Medication (Drip) Medication Time Given Dosage/Unit Concentration/Unit Diluent (ml) Solution IV Solutions 01/18/2018 1:15:02 PM 0 mL (IV) 500 NaCl .9 Patient arrived on IV Solutions given by Ramon Lewis in Right Forearm via Peripheral IV. Pump/Drip Flow = 20 ml/hr using NaCl .9. Ordered by Ramon Lewis. Initial Case Assessment Cardiovascular HR Rhythm NIBP 96 sr 199/89 Edema Present Skin color Skin None Normal Warm Dry Circulatory - Right Pulses Femoral 2 Scale (0,1,2,3,4,d) Circulatory - Left Pulses Femoral 1 Scale (0,1,2,3,4,d) Neurological State Oriented to time-place- Alert Moves all extremities person Respiration - General Respiration Rate SpO2 (%) O2 (lpm) (B/min) 18 100 0 Final Case Assessment Cardiovascular HR Rhythm NIBP 84 sr 159/73 Edema Present Skin color Skin None Normal Warm Dry Circulatory - Right Pulses Femoral 2 Scale (0,1,2,3,4,d) Circulatory - Left Pulses Femoral 1 Scale (0,1,2,3,4,d) Neurological State Oriented to time-place- Alert Moves all extremities person Respiration - General Respiration Rate SpO2 (%) O2 (lpm) (B/min) 18 99 0 Chronological Log Time Study Chronological Log 13:05:47 Patient arrived via Bed. 13:05:48 Patient Name, D.O.B, / Armband Verified By R.N. 13:05:50 Consent signed by the physician and the patient and verified by the [facility] staff. 13:05:51 Pre-op and post- op instructions given; patient acknowledges understanding of instructions. 13:06:29 Verbal Stimulation=2 Physical Stimulation=2 Airway=2 Respiration=2 TOTAL=8. (0=absent, 1=li mited, 2=present) 13:06:43 Presedation assessment performed by Butter [facility] RN. 13:06:46 Patient has been NPO for More than 6Hrs. Vitals capture started with the following parameters, Patient=Adult, Interval=5 min, Initial Pr ovqojo=292 mmHg, 13:12:21 Deflation Rate=5 mmHg, Cuff placed on Right Ankle 13:12:41 Reference ECG taken 13:12:46 Skin Breakdown-Bandages present on bilateral feet. 13:13:31 HR=96 bpm, NPWL=550/89 mmhg, HqA4=342.0 %, Resp=14 B/min, Duffy=2 13:14:51 A # 20 IV was noted in the Forearm (right). Grade = 0 Patient arrived on IV Solutions given by Ramon Lewis in Right Forearm via Peripheral IV. Pum p/Drip Flow = 20 ml/hr 13:15:02 using NaCl .9. Ordered by Ramon Lewis. 13:15:27 History and physical on the chart or being dictated. Assessment: Initial Case, HR=96 BPM, Rhythm=sr, NEXK=360/89 mmhg, Edema=None, Color=Normal, Ski n = Warm, Dry Right Pulses: Femoral=2 13:15:30 Left Pulses: Femoral=1 Neurological: State=Alert, Ox3, JOAQUIN Respiration: Resp=18 B/min, ZjX7=783 %, O2=0 lpm 13:15:59 Bilateral groins prepped with 2% chlorhexidine, and draped after a 3 minute waiting time. 13:18:06 HR=96 bpm, ZTXB=202/91 mmhg, VeI9=278.0 %, Resp=14 B/min, Duffy=2 13:22:15 1 mg VERSED given in lab by Karoline Romero, RN via Peripheral IV. Ordered by Harjeet Lewis Time Out. Correct patient, correct procedure, correct physician, power injector loaded with con trast with surgical team 13:22:46 present. Time Out Concurred by MD and individual staff in procedure. Loaded by Dia Romero rn, ve rified by John Valdivia. 13:23:05 HR=95 bpm, WXVH=291/86 mmhg, XuH4=388.0 %, Resp=10 B/min, Duffy=2 13:23:21 50 mcg FENTANYL given in lab by Karoline Romero, RN via Peripheral IV. Ordered by Erin Lewis 13:23:50 Case Start 13:24:03 Verbal Stimulation=2 Physical Stimulation=2 Airway=2 Respiration=2 TOTAL=8. (0=absent, 1=li mited, 2=present) Patient arrived on 10 mL 1% XYLOCAINE given by Ramon Lewis in Right Groin via Subcutaneous. Ordered by Joshua 13:24:18 Ramon. 13:24:30 Access site was Right Femoral Artery. A INTRODUCER SET, MICROPUNCTURE, STIFFENED FR 5 was advanced into the Fem Art (right) using the 13:24:35 Percutaneous technique. A SHEATH, FR4 TERUMO (10CM) FR 4 was exchanged in the Fem Art (right). This was necessary in or jose j to 13:24:39 accomodate a larger catheter. A OMNI FLUSH 65CM CATHETER FR 4 was advanced over a wire. OMNIPAQUE, 300 MG, 150ML 150ML was us ed for 13:24:48 injections. 13:26:11 Wire removed 13:26:15 Through a OMNI FLUSH 65CM CATHETER FR 4, The Abdominal Aorta was injected with 10 cc's of c ontrast. 13:28:06 HR=91 bpm, QFMA=712/83 mmhg, SpO2=98.0 %, Resp=12 B/min, Duffy=2 13:28:39 A WIRE, ANGLED GLIDE .035 260CM 260CM was inserted via Fem Art (right). 13:31:05 Injections down left leg through 4 stateless omni catheter. 13:32:21 A WIRE SCOTT 260CM .035 260CM was inserted via Fem Art (right). 13:32:25 Catheter was removed A SHEATH, FR6 TERUMO (10CM) FR 6 was exchanged in the Fem Art (right). This was necessary in or jose j to 13:32:32 accomodate a larger catheter. 13:33:05 HR=90 bpm, GABT=829/86 mmhg, SpO2=99.0 %, Resp=13 B/min, Duffy=2 13:33:38 3000 units HEPARIN given in lab by Karoline Romero, FREDDY via Peripheral IV. Ordered by Ramon Lewis. 13:34:01 Patient arrived on 50 mcg FENTANYL given by Karoline Romero, RN via Peripheral IV. Ordered by Ramon Lewis. 13:34:53 1 mg VERSED given in lab by Karoline Romero, RN via Peripheral IV. Ordered by Harjeet Lewis 13:35:30 50 mcg FENTANYL given in lab by Karoline Romero, FREDDY via Peripheral IV. Ordered by Erin Lewis. A SHEATH, FR6 DECLAN 1 FLEXOR 55CM FR 6 was exchanged in the Fem Art (right). This was necessary in order to 13:36:15 accomodate a larger catheter. A CATHETER, FR4 CXI SUPPORT FR 4 was advanced over a wire. OMNIPAQUE, 300 MG, 150ML 150ML was u sed for 13:37:19 injections. 13:38:08 HR=88 bpm, HFYI=101/75 mmhg, SpO2=96.0 %, Resp=15 B/min, Duffy=2 13:38:49 Catheter was removed A BALLOON, ADMIRAL EXTREME 5 X 60 130CM 130CM was inserted over WIRESONIA 260CM .035 260CM vi a the 13:39:23 SFA (left). 13:39:35 In the SFA (left) a BALLOON, ADMIRAL EXTREME 5 X 60 130CM 130CM was inflated to 10 atms for 120 seconds. 13:42:46 Balloon Removed. 13:43:05 HR=85 bpm, XOSX=221/75 mmhg, SpO2=99.0 %, Resp=17 B/min, Duffy=2 A SHEATH, FR6 TERUMO (10CM) FR 6 was exchanged in the Fem Art (right). This was necessary in or jose j to 13:44:42 accomodate a larger catheter. 13:45:17 manual injections down Right Leg through 6 stateless sheath in right fem artery. 13:48:04 HR=86 bpm, TTUO=815/79 mmhg, SpO2=99.0 %, Resp=12 B/min, Duffy=2 13:49:02 ANGIOSEAL, FR6 VIP FR 6 placement in the Fem Art (right) 13:51:20 10 mL 1% XYLOCAINE given in lab by Ramon Lewis in Left Groin via Subcutaneous. Ordered Ramon Michel. 13:52:19 Access site was Left Femoral Artery. 13:52:28 A SHEATH, FR6 TERUMO (10CM) FR 6 was advanced into the Fem Art (left) using the Percutaneou s technique. 13:53:05 HR=88 bpm, MAKS=750/77 mmhg, RkF9=008.0 %, Resp=13 B/min, Duffy=2 13:54:33 1 mg VERSED given in lab by Karoline Romero, RN via Peripheral IV. Ordered by Harjeet Lewis OMNI FLUSH 65CM CATHETER FR 4 was advanced over a wire. OMNIPAQUE, 300 MG, 150ML 150ML was us ed for 13:54:50 injections. 13:55:42 50 mcg FENTANYL given in lab by Karoline Romero, FREDDY via Peripheral IV. Ordered by Erin Lewis. 13:56:17 Catheter was removed A SHEATH, FR6 DECLAN 1 FLEXOR 55CM FR 6 was exchanged in the Fem Art (left). This was necessary in order to 13:56:26 accomodate a larger catheter. 13:58:06 HR=86 bpm, LSOB=570/71 mmhg, SpO2=99.0 %, Resp=17 B/min, Duffy=2 A BALLOON, ADMIRAL EXTREME 5 X 150 130CM 130CM was inserted over WIRESONIA 260CM .035 260CM v ia the 13:59:13 SFA (right). 13:59:33 In the SFA (right) a BALLOON, ADMIRAL EXTREME 5 X 150 130CM 130CM was inflated to 10 atms f or 120 seconds. 14:02:09 In the SFA (right) a BALLOON, ADMIRAL EXTREME 5 X 150 130CM 130CM was inflated to 10 atms f or 120 seconds. 14:03:05 HR=85 bpm, DFHH=261/73 mmhg, SpO2=98.0 %, Resp=13 B/min, Duffy=2 14:06:31 In the SFA (right) a BALLOON, ADMIRAL EXTREME 5 X 150 130CM 130CM was inflated to 10 atms f or 120 seconds. 14:08:06 HR=84 bpm, JJUH=161/73 mmhg, SpO2=98.0 %, Resp=14 B/min, Duffy=2 14:10:25 Balloon Removed. 14:10:43 Wire removed 14:10:51 ANGIOSEAL, FR6 VIP FR 6 placement in the Fem Art (left) 14:11:11 Case End Assessment: Final Case, HR=84 BPM, Rhythm=sr, MTVX=142/73 mmhg, Edema=None, Color=Normal, Skin = Warm, Dry Right Pulses: Femoral=2 14:11:14 Left Pulses: Femoral=1 Neurological: State=Alert, Ox3, JOAQUIN Respiration: Resp=18 B/min, SpO2=99 %, O2=0 lpm 14:11:51 Catheter(s) removed without difficulty 14:11:55 Sterile dressing applied to site 14:11:56 No case complications noted. 14:11:59 Cine recording checked. 14:12:01 Bedside Report will be given. 14:12:03 Implantable Device card placed in patient's chart. 14:12:21 Vitals capture stopped. 14:18:40 [facility] - Contrast Media Used In Study Contrast Total Opened (mL) Total Used (mL) Total Wasted (mL) Omnipaque 70 70 0 End Study - Maximum Contrast Load Max Contrast Load (mL) 417.0 End Study - Radiation Exposure Fluoro Time (minutes) 3.7 End Study - Patient Disposition Complications Transferred To Telemetry Bed
--- NOTE | 2018-01-18 14:19 | HHI.PR ---
cc: Ramon Lewis MD Immediate Post Op Note Procedure Date: Jan 18, 2018 Pre Op Diagnosis: PAD, B LE Post Op Diagnosis: PAD, B LE Surgeon: Ramon Lewis Polystyrene Molding Machine Tender(s): none Procedure: Aortogram w/ B LE angiogram B SFA GAS REGULATOR REPAIRER HELPER B CELL EFFICIENCY SUPERVISOR Angioseal Findings: 1. L SFA distal stenosis, successful GAS REGULATOR REPAIRER HELPER to 5mm 2. R SFA tandem stenoses, successful GAS REGULATOR REPAIRER HELPER to 5mm Complications: none Specimen(s) removed: none Estimated blood loss: 10mL Anesthesia: MAC Drains: None Patient to: Other (DOCU) Patient Condition: Good Implant/Devices: SEE IMPLANT LOG (if applicable) Date/Time of Procedure: SEE SURGICAL CARE RECORD Ramon Lewis MD Jan 18, 2018 14:19
--- NOTE | 2018-01-18 20:48 | MP ---
cc: Ramon Lewis MD, Robert J MD DATE OF OPERATION: 01/18/2018 PREOPERATIVE DIAGNOSIS: Bilateral extremity peripheral artery occlusive disease with tissue loss. POSTOPERATIVE DIAGNOSIS: Bilateral extremity peripheral artery occlusive disease with tissue loss. PROCEDURE: 1. Aortogram with bilateral lower extremity angiogram, 2. Left SFA angioplasty with a 5 mm balloon, 3. Right SFA angioplasty with a 5 mm balloon, 4. Bilateral common femoral artery AngioSeal. ATTENDING SURGEON: Ramon Lewis MD ANESTHESIA: Local with sedation. INDICATIONS: Mr. Lehman is a 52-year-old gentleman with bilateral lower extremity tissue loss. He is somewhat ambulatory and uses his legs for transfers. He is taken to the operating room for angiographic evaluation and treatment as there is no prior cath based imaging available for my review. PROCEDURE IN DETAIL: Informed consent was obtained from the patient. He was taken to the operating room and placed supine on the operating room table. An appropriate timeout was taken to ensure the patient's identity, operative site and planned procedure. The administration of antibiotics was not necessary as this is a clean procedure without implantation of any foreign object. Everyone in the room agreed with timeout and we proceeded. His bilateral groins were prepped and draped and right groin was anesthetized with 1% lidocaine. A 21-gauge micropuncture sheath was used to access the right common femoral artery. This was exchanged using Seldinger technique for a micropuncture sheath through which a 0.035 Glidewire was introduced and the micropuncture sheath was exchanged for a 4-Serbian sheath and a VCF catheter was placed over the wire and through the sheath. An aortogram pelvic arteriogram was obtained. The Glidewire was reintroduced and navigated down to the left common femoral artery and the VCF catheter was advanced over this and a left lower extremity arteriogram was obtained. The patient was systemically heparinized with 3000 units of IV heparin. A 0.035 Marks wire was advanced down the SFA. The VCF catheter and 4-Serbian sheath were removed and the 6-Serbian 55 cm Ziggy sheath was introduced. A CXI catheter was placed over the wire and through the sheath and the CXI and Marks were navigated down to the popliteal artery. The left SFA was angioplastied with a 5 mm balloon. The completion angiogram showed excellent result without any recoil, extravasation nor embolic complications. The wire, catheter and sheath were removed and the groin was closed with AngioSeal. The left common femoral artery was accessed with a 21-gauge micropuncture needle and this was exchanged using Seldinger technique for a micropuncture sheath through which a 0.035 Glidewire was introduced and the micropuncture sheath was exchanged for a 6-Serbian sheath and the VCF catheter was advanced over the wire into the sheath. The VCF and Glidewire were navigated down to the right common femoral artery and a right lower extremity arteriogram was obtained. The 0.035 Marks wire was advanced through the VCF catheter and the VCF catheter was removed. A 6-Serbian short sheath was removed and a 6-Serbian 55 cm Ziggy sheath was introduced. The Marks wire was then advanced down the popliteal artery and the SFA was dilated with a 5 mm balloon. The completion angiogram showed excellent result without any recoil, extravasation, no flow-limited complications. Wire, catheter and sheath were removed and the left groin was closed with AngioSeal. The patient was then transported to the recovery room in stable condition. I was present, scrubbed and performed the entire procedure. INTERPRETATION: This patient has patent inferior aortic common iliac arteries, hypogastric arteries and external iliac arteries without any hemodynamically significant stenosis. The left common femoral artery and profunda are patent. The SFA is patent, but there is a high-grade focal stenosis in the mid SFA and 3-vessel runoff below the calf was dominant posterior tibial to the foot. After angioplasty of the SFA, there was successful resolution of the stenosis without any flow-limiting dissection, recoil or extravasation. On the right hand side, the common femoral artery and profunda are patent. The SFA has 2 areas of high-grade stenosis and then there is 2-vessel runoff to the ankle. We had successful resolution of the stenosis with angioplasty alone without any flow-limiting dissection or embolic complications. MD ANDREAS Torres//colin , 06:07 PM , 08:30 PM
== END 2018-01-18 16:28 | disposition home or self-care (01) ==
LOC: HDOC 11:09 → HDIC 11:09 → HDOC 16:28
PROVIDERS: ATTEND Surgery
DX: I73.9 Peripheral vascular disease, unspecified (principal); R23.4 Changes in skin texture; Z01.818 Encounter for other preprocedural examination
CPT/HCPCS: 37224; 75625; 75716; 80048; 85025; 85610; 99152; 99153; C1725; C1751; C1760; C1769; C1893; G0269; J1644; J2250; J3010; Q9967